=== PATIENT | male | born 1970 | race Caucasian/White ===

== ENCOUNTER 2020-03-24 12:24 | Inpatient (IN) | payer OTHER ==
[2020-03-24] VITALS (10 sets, daily range): BP systolic 110–135; BP diastolic 70–96
[~2020-03-24] VITALS: Ht 172 cm; Wt 92.6 kg
--- OUTSIDE RECORDS SUMMARY | 2020-03-24 12:29 | XMS REPORT | Continuity of Care Document ---
Demographics Preferred Language Unknown Marital Status Unknown Scientologist Affiliation Unknown Race Unknown Ethnic Group Unknown Author Organization Unknown Address Unknown Phone Unavailable Allergies There is no data. Medications There is no data. Problems There is no data. Procedures There is no data. Results Test Result Range CYTOCHECK COVID- - 03/02/20 13:10 [id number] NOT DETECTED Not Detecte d Encounters ACCT No. Visit Date/Time Discharge Status Pt. Type Provider Facility Loc./Unit Complaint [id number] 03/03/2020 07:09:45 Document Registration [id number] 03/02/2020 13:56:00 03/02/2020 23:59: 59 CLS Outpatient Yamileth Pederson
--- OUTSIDE RECORDS SUMMARY | 2020-03-24 12:29 | XMS REPORT ---
Demographics Preferred Language Uzbek Marital Status Never Jew Affiliation Unknown Race Other Race Ethnic Group Unknown Author Connor Coe [facility] Address [address] [place], [place] [id number] Care Team Providers Care Field Support Technician Name Role Phone Yamileth Pederson PCP Allergies and Adverse Reactions Not available. Plan of Treatment Not available. Medications Not available. Problem List Not available. Vital Signs Date Time BP-Sys(mm[Hg] BP-Deisi(mm[Hg]) HR(bpm) RR(rpm) Temp WT HT HC BMI BSA BMI Percentile O2 Sat(%) 03/02/2020 1:36:00 PM 83 {beats}/min 99.3 F 98 % Social History Not available. History of Procedures Not available. Results Summary Not available. History Of Immunizations Not available. History of Past Illness Name Date of Onset Comments Contact with or exposure to viral disease Mar 02 2020 10:02A M Payers Not available. History of Encounters Visit Date Visit Type Provider 03/02/2020 Office visit Yamileth ARORA RN
[2020-03-24 12:42] LABS: BASOPHILS % (AUTO) 0 % (0-10); EOSINOPHILS # (AUTO) 0.1 10^3/uL (0.0-0.3); EOSINOPHILS % (AUTO) 1 % (0-10); HEMATOCRIT 41 % (40-54); HEMOGLOBIN 13.8 G/DL (13.3-17.7); LYMPHOCYTES # (AUTO) 2.3 X 10^3 (1.0-4.0); LYMPHOCYTES % (AUTO) 25 % (12-44); MEAN CORPUSCULAR HEMOGLOBIN 29 PG (25-34); MEAN CORPUSCULAR HGB CONC 34 G/DL (32-36); MEAN CORPUSCULAR VOLUME 87 FL (80-99); MEAN PLATELET VOLUME 11.2 FL (7.4-10.4); MONOCYTES # (AUTO) 0.6 X 10^3 (0.0-1.0); MONOCYTES % (AUTO) 6 % (0-12); NEUTROPHILS # (AUTO) 6.4 X 10^3 (1.8-7.8); NEUTROPHILS % (AUTO) 69 % (42-75); PLATELET COUNT 418 10^3/uL (130-400); RED CELL DISTRIBUTION WIDTH 12.5 % (10.0-14.5); WHITE BLOOD COUNT 9.3 10^3/uL (4.3-11.0)
--- NOTE | 2020-03-24 12:46 | ED Neurological Problem ---
General Stated Complaint: STROKE Source: patient, EMS History of Present Illness Date Seen by Provider: Mar 24, 2020 Time Seen by Provider: 12:25 Initial Comments PT ARRIVES VIA EMS FROM HOME PT WITH STROKE SYMPTOMS WITH LEFT SIDED PARALYSIS AND NEGLECT--LAST KNOWN WELL TIME WAS 2100 LAST NIGHT, WHEN WENT TO BED. WOKE UP JUST PRIOR TO CALLING EMS, AND FOUND PT IN CURRENT CONDITION PT STATES HE TRIED TO GET UP AT 0100 TO GO TO THE BATHROOM AND "COULDN'T GET MY LEGS TO WORK" HAS NUMBNESS TO LEFT SIDE OF BODY PT DENIES PAIN ANYWHERE NO HEADACHE SLIGHT NAUSEA, NO VOMITING, PER PT; EMS REPORT THAT WHEN THEY WERE MOVING PT TO EMS CART, HE BECAME VERY NAUSEATED AND GAVE ZOFRAN 4 MG NO DIZZINESS GAZE FIXED TO RIGHT/LEFT SIDED NEGLECT VITALS FOR EMS: O2 SAT 93% ON ROOM AIR--UP TO UPPER 90'S ON 2L/NC; BP 123/74; HR IN 70'S; ACCUCHECK 122 EMS REPORT THAT THERE IS NO CENTRAL AIRCONDITIONING IN THE HOME--TEMP HAS BEEN IN 90'S AND VERY HIGH HUMIDITY ALL WEEK EMS REPORT THAT STATES THERE IS A WINDOW UNIT, BUT PT REFUSES TO TURN IT ON PT IS SWEATY ON ARRIVAL, BUT AND EMS STAFF ALSO SWEATY AT THE [employer]KS AT [employer] IN [place], AND EMPLOYEES HAVE BEEN ROUTINELY TESTED FOR COVID-19 TESTED POSITIVE 1 MONTH AGO, BUT WAS ASYMPTOMATIC. SHE HAS RETURNED TO WORK FOR THE LAST 2 WEEKS, AFTER QUARANTINE AND REPEAT COVID-19 TESTING WAS NEGATIVE. PT TESTED NEGATIVE FOR COVID-19 1 MONTH AGO, AND HAS NOT HAD ANY SYMPTOMS PT HAS HISTORY OF HTN, BUT REFUSES TO GO TO A DR. OR HOSPITAL, AND REFUSES TO TAKE ANY PRESCRIPTION MEDICATION AND INITIALLY REFUSED TO COME TO THE HOSPITAL DOES TAKE OTC GARLIC, TURMERIC, MILK THISTLE, AND CBD REPORTED TO EMS THAT HE IS "SLIGHTLY AUTISTIC" PCP: NONE Allergies and Home Medications Allergies Coded Allergies: No Known Drug Allergies (Unverified , 03/24/20) Home Medications Cranberry 400 Mg Capsule, 400 MG PO DAILY, (Reported) Dextromethorphn/Acetaminoph/Cp 354 Ml Liquid, 15-30 ML PO Q8H PRN for COUGH, (Reported) Garlic 500 Mg Capsule, 500 MG PO DAILY, (Reported) Milk Thistle Seed Extract 175 Mg Capsule, 175 MG PO DAILY, (Reported) Omeprazole 20 Mg Tablet.dr, 20 MG PO DAILY PRN for HEARTBURN, (Reported) Turmeric/Turmeric Root Extract 1 Each Capsule, 1 EACH PO DAILY, (Reported) [cbd] , 1 DROP SL DAILY, (Reported) Patient Home Medication List Home Medication List Reviewed: Yes Review of Systems Review of Systems Constitutional: no symptoms reported; No chills, No diaphoresis, No dizziness Eyes: See HPI Ears, Nose, Mouth, Throat: no symptoms reported Respiratory: no symptoms reported; No cough, No short of breath, No wheezing Cardiovascular: no symptoms reported; No chest pain, No edema, No palpitations, No syncope Gastrointestinal: see HPI; No abdominal pain; nausea; No vomiting Genitourinary: no symptoms reported Musculoskeletal: see HPI Skin: no symptoms reported Psychiatric/Neurological: See HPI; Denies Headache; Numbness, Unable to Move Lower Ext, Unable to Move Upper Ext, Weakness Endocrine: No Symptoms Reported Hematologic/Lymphatic: No Symptoms Reported Past Wxhflds-Lmknpu-Qytfbm Hx Past Med/Social Hx: Reviewed and Corrections made Patient Social History Alcohol Use: Denies Use Recreational Drug Use: No Smoking Status: Never a Smoker Past Medical History Surgeries: No Respiratory: No Cardiac: Yes Hypertension 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 oz. kg; BMI Method: General Appearance: WD/WN, no apparent distress, other (DIAPHORETIC ) HEENT: other (PUPILS EQUAL, GAZE FIXED TO RIGHT; POOR DENTITION; LEFT FACIAL DROOP, INCLUDING FOREHEAD,. UNABLE TO CLOSE LEFT EYELID. ABLE TO STICK TONGUE OUT, BUT NOT TO MIDLINE AND HAS SOME DIFFICULTY CONTROLLING TONGUE. SPEECH SLURRED) Neck: non-tender, full range of motion, supple, normal inspection; No carotid bruit Respiratory: normal breath sounds, no respiratory distress, no accessory muscle use Cardiovascular: normal peripheral pulses, regular rate, rhythm, no edema, no JVD, no murmur Peripheral Pulses: 2+ Dorsalis Pedis (R), 2+ Left Dors-Pedis (L), 2+ Radial Pulses (R), 2+ Radial Pulses (L) Gastrointestinal: normal bowel sounds, non tender, soft, no organomegaly, no pulsatile mass Back: no CVA tenderness Extremities: no pedal edema, normal capillary refill Neurologic/Psychiatric: alert, normal mood/affect, oriented x 3, EOM palsy, facial droop, motor weakness, sensory deficit, other (COMPLETELY FLACCID ON LEFT SIDE, WITH LEFT SIDED NEGLECT. NO SENSATION ON LEFT. LEFT FACIAL DROOP, INCLUDING FOREHEAD AND LEFT EYELID. GAZE DEVIATED TO RIGHT. ) Crainal Nerves: abnormal speech, facial droop, facial paresthesias, gaze palsy Motor/Sensory: weak motor strength LUE, weak motor strength LLE Skin: normal color, diaphoresis Stroke Onset of Symptoms Onset of Symptoms: No Symptoms onset unknown: Yes NIH Stroke Scale Assessment Select: Initial Level of Consciousness: 0=Alert (0), Level of Consciousness- Questions: 0=Answers both month/age (0), LOC Commands: 0=Performs both tasks (0), Gaze: Forced Deviation (2), Visual Mejia: 2=Complete hemianopia (2), Facial Movement (Facial Paresis): 3=Complete paralysis (3), Motor Function- Arms Right: 0=No drift (0), Motor Function-Arms Left: 4=No movement (4), Motor Function-Legs Right: 0=No drift (0), Motor Function-Legs Left: 4=No movement (4), Limb Ataxia: 2=Present in two limbs (2), Sensory: 2=Severe to total loss (2), Best Language: 1=Mild to moderat aphasia (1), Dysarthria: 1=Mild to moderate loss (1), Extinction & Inattention: 2=ProfoundH emiInattention (2), Total: 23 Stroke Thrombolytic Exclusion Age 18 or Over: Yes Acute intenal hemorrhage: No History of CVA: No Uncontrolled Coagulation Defec: No Intracranial Hemorrhage: No Severe Hypertension: No GI or Bleed: No Subarachnoid Hemorrhage: No Intracranial Neoplasm/Aneurysm: No Oral Anticoagulants: No Surgery or Trauma: No Puncture of Non-Compressible V: No Recent CPR: No Diabetic Hemorrhagic Retinopat: No Organ Biopsy: No Recent Obstetric Delivery: No Glucose: No Significant Hepatic Dysfunctio: No NIH Stoke Scale >22: Yes Bacterial Endocarditis: No Pericarditis: No Improving Symptoms: No Platelets: No IV - TPa Received IV - TPa Procedure Performed?: No (ONSET > 12 HOURS, WITH LKWT >15 HOURS) Progress/Results/Core Measures Results/Orders Lab Results Laboratory Tests Test 03/24/20 12:31 03/24/20 12:33 Range/Units White Blood Count 9.3 4.3-11.0 10^3/uL Red Blood Count 4.74 4.35-5.85 10^6/uL Hemoglobin 13.8 13.3-17.7 G/DL Hematocrit 41 40-54 % Mean Corpuscular Volume 87 80-99 FL Mean Corpuscular Hemoglobin 29 25-34 PG Mean Corpuscular Hemoglobin Concent 34 32-36 G/DL Red Cell Distribution Width 12.5 10.0-14.5 % Platelet Count 418 H 130-400 10^3/uL Mean Platelet Volume 11.2 H 7.4-10.4 FL Neutrophils (%) (Auto) 69 42-75 % Lymphocytes (%) (Auto) 25 12-44 % Monocytes (%) (Auto) 6 0-12 % Eosinophils (%) (Auto) 1 0-10 % Basophils (%) (Auto) 0 0-10 % Neutrophils # (Auto) 6.4 1.8-7.8 X 10^3 Lymphocytes # (Auto) 2.3 1.0-4.0 X 10^3 Monocytes # (Auto) 0.6 0.0-1.0 X 10^3 Eosinophils # (Auto) 0.1 0.0-0.3 10^3/uL Basophils # (Auto) 0.0 0.0-0.1 10^3/uL Prothrombin Time 14.0 12.2-14.7 SEC INR Comment 1.0 0.8-1.4 Activated Partial Thromboplast Time 29 24-35 SEC D-Dimer 2.69 H 0.00-0.49 UG/ML Sodium Level 143 135-145 MMOL/L Potassium Level 4.3 3.6-5.0 MMOL/L Chloride Level 109 H 98-107 MMOL/L Carbon Dioxide Level 18 L 21-32 MMOL/L Anion Gap 16 H 5-14 MMOL/L Blood Urea Nitrogen 23 H 7-18 MG/DL Creatinine 0.74 0.60-1.30 MG/DL Estimat Glomerular Filtration Rate > 60 BUN/Creatinine Ratio 31 Glucose Level 123 H 70-105 MG/DL Calcium Level 9.3 8.5-10.1 MG/DL Corrected Calcium 9.2 8.5-10.1 MG/DL Magnesium Level 2.4 1.6-2.4 MG/DL Total Bilirubin 0.3 0.1-1.0 MG/DL Aspartate Amino Transf (AST/SGOT) 27 5-34 U/L Alanine Aminotransferase (ALT/SGPT) 57 H 0-55 U/L Alkaline Phosphatase 53 40-136 U/L Total Creatine Kinase 120 30-200 U/L Creatine Kinase MB 1.7 <6.6 NG/ML Myoglobin 223.0 H 10.0-92.0 NG/ML Troponin I < 0.028 <0.028 NG/ML Total Protein 7.8 6.4-8.2 GM/DL Albumin 4.1 3.2-4.5 GM/DL Serum Alcohol < 10 <10 MG/DL Glucometer 140 H 70-110 MG/DL My Orders Orders - ИРИНА ELY DO Cbc With Automated Diff (03/24/20 12:) Protime With Inr (03/24/20 12:) Partial Thromboplastin Time (03/24/20 12:27) Comprehensive Metabolic Panel (03/24/20 12:) Fibrin Degradation Products (03/24/20 12:27) Troponin I (03/24/20 12:27) Ua Culture If Indicated (03/24/20 12:27) Chest 1 View, Ap/Pa Only (03/24/20 12:) Catheter(Urinary) Insert & Ass 03,15 (03/24/20 12:27) Ekg Tracing (03/24/20 12:27) Nothing By Mouth (03/24/20 Lunch) Accucheck Stat ONCE (03/24/20 12:) Ed Iv/Invasive Line Start (03/24/20 12:27) Ed Iv/Invasive Line Start (03/24/20 12:27) Vital Signs Stroke Patient Q15M (03/24/20 12:27) Ct Head Wo-R/O Stroke (03/24/20 12:) O2 (03/24/20 12:) Intake & Output 06,14,22 (03/24/20 12:) Monitor-Rhythm Ecg Trace Only (03/24/20 12:) Dysphagia Screening Tool (03/24/20 12:) Alcohol (03/24/20 12:) Creatine Kinase (03/24/20 12:) Creatine Kinase Mb (03/24/20 12:) Drug Screen Stat (Urine) (03/24/20 12:) Magnesium (03/24/20 12:) Myoglobin Serum (03/24/20:) Ondansetron Injection (Zofran Injectio (03/24/20 13:00) Scopolamine Patch (Transderm-Scop Patch) (03/24/20 13:00) Medications Given in ED Vital Signs/I&O 03/24/20 03/24/20 12:25 12:33 Temp 36.1 Pulse 89 Resp 18 B/P (MAP) 143/98 (113) Pulse Ox 98 97 O2 Delivery Nasal Cannula O2 Flow Rate 2.00 Progress Progress Note : Progress Note PT BECAME DIAPHORETIC AND NAUSEATED AND DIAPHORETIC ON MOVING PT ON AND OFF CT TABLE--ZOFRAN + SCOPOLAMINE PATCH ORDERED THOSE SYMPTOMS RESOLVED OTHERWISE UNEVENTFUL ER COURSE DISCUSSED TEST RESULTS AND EXPLAINED TO PT THE NEED FOR HOSPITALIZATION, MULTIPLE THERAPY SERVICES, ETC. AND HE UNDERSTANDS AND IS AGREEABLE TO THIS Initial ECG Impression Date: Mar 24, 2020 Initial ECG Impression Time: 12:31 Initial ECG Rate: 90 Initial ECG Rhythm: Normal Sinus Initial ECG Comparisson: No Previous ECG Available Diagnostic Imaging Comments CXR--Discussion: Single portable upright view of the chest was obtained. Low lung volumes. Normal heart size. No pleural fluid or pneumothorax. Questionable consolidation within the periphery of the left midlung, pneumonia versus atelectasis. Impression: 1. Patchy ill-defined opacity within the left midlung periphery, pneumonia not excluded. CT HEAD--MASSIVE ACUTE, RIGHT SIDED CVA IN DISTRIBUTION OF RIGHT MCA. NO HEMORRHAGE, NO EDEMA, NO MIDLINE SHIFT, NO HYDROCEPHALUS--PER RADIOLOGIST VIA PHONE AT 1300 IMPRESSION: 1. Suspect large right acute MCA territory infarct. No hemorrhage. Reviewed: Reviewed by Me, Discussed w/Radiologist Departure Communication (Admissions) Family Conversation 1325--SPOKE WITH PT'S , AND DISCUSSED TEST RESULTS AND EXPLAINED NEED FOR ADMIT AND INTENSIVE PHYSICAL THERAPY, OCCUPATIONAL THERAPY AND SPEECH THERAPY. SHE APPEARS TO UNDERSTAND. SHE REPORTS THAT BOTH THE PATIENT AND THEIR DAUGHTER BOTH TESTED NEGATIVE FOR COVID-19 4 WEEKS AGO 1305--SPOKE WITH DR. FRANCE, ACCEPTS PT FOR ADMIT. 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
[2020-03-24 12:52] LABS: ALBUMIN 4.1 GM/DL (3.2-4.5); CHLORIDE 109 MMOL/L (98-107); POTASSIUM 4.3 MMOL/L (3.6-5.0); SODIUM 143 MMOL/L (135-145)
[2020-03-24 12:54] LABS: CALCIUM 9.3 MG/DL (8.5-10.1); FIBRIN DEGRADATION PRODUCTS 2.69 UG/ML (0.00-0.49)
[2020-03-24 12:55] LABS: GLUCOSE 123 MG/DL (70-105); TOTAL PROTEIN 7.8 GM/DL (6.4-8.2)
[2020-03-24 12:56] LABS: CARBON DIOXIDE 18 MMOL/L (21-32)
[2020-03-24 12:57] LABS: BILIRUBIN,TOTAL 0.3 MG/DL (0.1-1.0)
[2020-03-24 12:58] LABS: ALKALINE PHOSPHATASE 53 U/L (40-136)
[2020-03-24 12:59] LABS: CREATININE SERUM 0.74 MG/DL (0.60-1.30); GFR ESTIMATED > 60
[2020-03-24 13:00] LABS: BUN/CREATININE RATIO 31
[2020-03-24] MEDS ORDERED: ONDANSETRON 4 MG/2 ML (SDV) Z0FRAN IVP ONE (13:00)
[2020-03-24] MEDS ORDERED: SCOPOLAMINE 1.5 MG (TRANSDERM-SCOP) PATCH TD ONE (13:00)
[2020-03-24 13:01] LABS: ALANINE AMINOTRANSFERASE 57 U/L (0-55); MAGNESIUM 2.4 MG/DL (1.6-2.4)
[2020-03-24 13:02] LABS: CREATINE KINASE 120 U/L (30-200)
[2020-03-24] MEDS ORDERED: GARL1TAB2 PO (13:05)
[2020-03-24 13:09] LABS: CREATINE KINASE MB 1.7 NG/ML (<6.6)
[2020-03-24] MEDS ORDERED: LACTATED RINGERS 1,000 ML IV ONE (13:34)
--- NOTE | 2020-03-24 13:34 | Diagnostic Imaging Report ---
PROCEDURE: CT head wo r/o stroke. TECHNIQUE: Multiple contiguous axial images were obtained through the brain without the use of intravenous contrast. Auto Exposure Controls were utilized during the CT exam to meet ALARA standards for radiation dose reduction. INDICATION: Altered mental status. COMPARISON: None. DISCUSSION: Large area of low attenuation within the posterior right frontal lobe and parietal lobe which is most suggestive of an acute infarct. There is loss of the lipscomb-white differentiation in this region. There is mild swelling with loss of the cortical sulci. No hemorrhage identified. No midline shift or hydrocephalus. This likely represents a right MCA distribution infarct. The orbits, sinuses, mastoid air cells, and calvarium are unremarkable. IMPRESSION: 1. Suspect large right acute MCA territory infarct. No hemorrhage. Critical findings were called to Dr. Mary Hare in the emergency department at time of exam by Dr. Jensen. Dictated by: Dictated on workstation # [id number]
--- NOTE | 2020-03-24 13:36 | Diagnostic Imaging Report ---
Indication: Altered mental status with left-sided paralysis. Comparison: None. Discussion: Single portable upright view of the chest was obtained. Low lung volumes. Normal heart size. No pleural fluid or pneumothorax. Questionable consolidation within the periphery of the left midlung, pneumonia versus atelectasis. Impression: 1. Patchy ill-defined opacity within the left midlung periphery, pneumonia not excluded. Dictated by: Dictated on workstation # [id number]
[2020-03-24 13:41] LABS: BILIRUBIN,URINE NEGATIVE (NEGATIVE); CLARITY,URINE CLEAR; COLOR,URINE YELLOW; GLUCOSE, URINE (UA) NEGATIVE (NEGATIVE); KETONES,URINE NEGATIVE (NEGATIVE); LEUKOCYTE ESTERASE ,URINE NEGATIVE (NEGATIVE); NITRITE,URINE NEGATIVE (NEGATIVE); PROTEIN,URINE NEGATIVE (NEGATIVE)
[2020-03-24 13:56] LABS: AMPHETAMINE SCREEN, URINE NEGATIVE (NEGATIVE); BARBITURATE SCREEN URINE NEGATIVE (NEGATIVE); BENZODIAZEPINES SCREEN URINE NEGATIVE (NEGATIVE); CANNABINOID SCREEN, URINE NEGATIVE (NEGATIVE); COCAINE SCREEN URINE NEGATIVE (NEGATIVE); METHADONE STAT NEGATIVE (NEGATIVE); METHAMPHETAMINE SCREEN URINE S NEGATIVE (NEGATIVE); OPIATE SCREEN URINE NEGATIVE (NEGATIVE); OXYCODONE STAT NEGATIVE (NEGATIVE); PROPOXYPHENE STAT NEGATIVE (NEGATIVE); TRICYCLIC ANTIDEPRESSANTS SCRE NEGATIVE (NEGATIVE)
[2020-03-24 14:05] LABS: BACTERIA,URINE MODERATE /HPF; WBC,URINE RARE /HPF
--- OUTSIDE RECORDS SUMMARY | 2020-03-24 14:40 | XMS REPORT | Continuity of Care Document ---
Demographics Preferred Language Unknown Marital Status Unknown Adventist Affiliation Unknown Race Unknown Ethnic Group Unknown Author Organization Unknown Address Unknown Phone Unavailable Allergies There is no data. Medications There is no data. Problems There is no data. Procedures There is no data. Results Test Result Range CYTOCHECK COVID-19 - 03/02/20 13:10 [id number] NOT DETECTED Not Detecte d Complete blood count (CBC) with automate d white blood cell (WBC) differential - 03/24/20 12:31 Blood leukocytes automated count (number/volume) 9.3 10*3/uL 4.3-11.0 Blood erythrocytes automated count (number/volume) 4.74 10*6/uL 4.35-5.85 Venous blood hemoglobin measurement (mass/volume) 13.8 g/dL 13.3-17.7 Blood hematocrit (volume fraction) 41 % 40-54 Automated erythrocyte mean corpuscular volume 87 [ foz_us] 80-99 Automated erythrocyte mean corpuscular h emoglobin (mass per erythrocyte) 29 pg 25-34 Automated erythrocyte mean corpuscular h emoglobin concentration measurement (mass/volume) 34 g/dL 32-36 Automated erythrocyte distribution width ratio 12. 5 % 10.0- 14.5 Automated blood platelet count (count/volume) 418 10*3/uL 130-400 Automated blood platelet mean volume measurement 11.2 [foz_us] 7.4-10.4 Automated blood neutrophils/100 leukocytes 69 % 42-75 Automated blood lymphocytes/100 leukocytes 25 % 12-44 Blood monocytes/100 leukocytes 6 % 0-12 Automated blood eosinophils/100 leukocytes 1 % 0-10 Automated blood basophils/100 leukocytes 0 % 0-10 Blood neutrophils automated count (number/volume) 6.4 10*3 1.8-7.8 Blood lymphocytes automated count (number/volume) 2.3 10*3 1.0-4.0 Blood monocytes automated count (number/volume) 0. 6 10*3 0.0-1.0 Automated eosinophil count 0.1 10*3/uL 0 .0-0.3 Automated blood basophil count (count/volume) 0.0 10*3/uL 0.0-0.1 Comprehensive metabolic panel - 03/24/20 12:31 Serum or plasma sodium measurement (moles/volume) 143 mmol/L 135-145 Serum or plasma potassium measurement (moles/volume) 4.3 mmol/L 3.6-5.0 Serum or plasma chloride measurement (moles/volume) 109 mmol/L 98-107 Carbon dioxide 18 mmol/L 21-32 Serum or plasma anion gap determination (moles/volume) 16 mmol/L 5-14 Serum or plasma urea nitrogen measurement (mass/volume ) 23 mg/dL 7-18 Serum or plasma creatinine measurement (mass/volume) 0.74 mg/dL 0.60-1.30 Serum or plasma urea nitrogen/creatinine mass ratio 31 NRG Serum or plasma creatinine measurement w ith calculation of estimated glomerular filtration rate > NRG Serum or plasma glucose measurement (mass/volume) 123 mg/dL 70-105 Serum or plasma calcium measurement (mass/volume) 9.3 mg/dL 8.5-10.1 Serum or plasma total bilirubin measurement (mass/volu me) 0.3 mg/dL 0.1-1.0 Serum or plasma alkaline phosphatase vivian surement (enzymatic activity/volume) 53 U/L 40-136 Serum or plasma aspartate aminotransfera se measurement (enzymatic activity/volume) 27 U/L 5-34 Serum or plasma alanine aminotransferase measurement (enzymatic activity/volume) 57 U/L 0-55 Serum or plasma protein measurement (mass/volume) 7.8 g/dL 6.4-8.2 Serum or plasma albumin measurement (mass/volume) 4.1 g/dL 3.2-4.5 CALCIUM CORRECTED 9.2 mg/dL 8.5-10.1 PT panel in platelet poor plasma by coag ulation assay - 03/24/20 12:31 Prothrombin time (PT) in platelet poor plasma by coagu lation assay 14.0 s 12.2-14.7 INR in platelet poor plasma or blood by coagulation as say 1.0 0.8-1.4 Activated partial thromboplastin time (a PTT) in platelet poor plasma bycoagulation assay - 03/24/20 12:31 Activated partial thromboplastin time (a PTT) in platelet poor plasma bycoagulation assay 29 s 24-35 Fibrin D-dimer FEU measurement in platel et poor plasma (mass/volume) - 03/24/20 12:31 Fibrin D-dimer FEU measurement in platelet poor plasma (mass/volume) 2.69 ug/mL 0.00-0.49 Magnesium - 03/24/20 12:31 Magnesium 2.4 mg/dL 1.6-2.4 Serum or plasma creatine kinase measurem ent (enzymatic activity/volume) - 03/24/20 12:31 Serum or plasma creatine kinase measurem ent (enzymatic activity/volume) 120 U/L 30-200 Serum or plasma creatine kinase MB measu rement (enzymatic activity/volume) - 03/24/20 12:31 Serum or plasma creatine kinase MB measu rement (enzymatic activity/volume) 1.7 ng/mL <6.6 Serum or plasma troponin i.cardiac measu rement (mass/volume) - 03/24/20 12:31 Serum or plasma troponin i.cardiac measurement (mass/v olume) < ng/mL <0.028 Myoglobin, serum - 03/24/20 12:31 Myoglobin, serum 223.0 ng/mL 10.0-92.0 Serum or plasma ethanol measurement (mas s/volume) - 03/24/20 12:31 Serum or plasma ethanol measurement (mass/volume) < mg/dL <10 Capillary blood glucose measurement by g lucometer (mass/volume) - 03/24/20 12:33 Capillary blood glucose measurement by glucometer (mas s/volume) 140 mg/dL 70-110 Urine drug screening test - 03/24/20 13: 24 Urine phencyclidine detection by screening method NEGATIVE NEGATIVE Urine benzodiazepines detection by screening method NEGATIVE NEGATIVE Urine cocaine detection NEGATIVE NEGATI VE Urine amphetamines detection by screening method N EGATIVE NEGATIVE Urine methamphetamine detection by screening method NEGATIVE NEGATIVE Urine cannabinoids detection by screening method N EGATIVE NEGATIVE Urine opiates detection by screening method NEGATI VE NEGATIVE Urine barbiturates detection NEGATIVE N EGATIVE Screening urine tricyclic antidepressants detection NEGATIVE NEGATIVE Urine methadone detection by screening method NEGA TIVE NEGATIVE Urine oxycodone detection NEGATIVE NEGA TIVE Urine propoxyphene detection NEGATIVE N EGATIVE Complete urinalysis with reflex to cultu re - 03/24/20 13:24 Urine color determination YELLOW NRG Urine clarity determination CLEAR NR G Urine pH measurement by test strip 6.0 5-9 Specific gravity of urine by test strip >= 1.016-1.022 Urine protein assay by test strip, semi-quantitative NEGATIVE NEGATIVE Urine glucose detection by automated test strip NE GATIVE NEGATIVE Erythrocytes detection in urine sediment by light micr oscopy 1+ NEGATIVE Urine ketones detection by automated test strip NE GATIVE NEGATIVE Urine nitrite detection by test strip NEGATIVE NEGATIVE Urine total bilirubin detection by test strip NEGA TIVE NEGATIVE Urine urobilinogen measurement by automated test strip (mass/volume) 0.2 mg/dL < = 1.0 Urine leukocyte esterase detection by dipstick NEG ATIVE NEGATIVE Automated urine sediment erythrocyte cou nt by microscopy (number/high power field) NONE NRG Automated urine sediment leukocyte count by microscopy (number/high power field) RARE NRG Bacteria detection in urine sediment by light microsco py MODERATE NRG Squamous epithelial cells detection in u rine sediment by light microscopy NONE NRG Crystals detection in urine sediment by light microsco py NONE NRG Casts detection in urine sediment by light microscopy NONE NRG Mucus detection in urine sediment by light microscopy NEGATIVE NRG Complete urinalysis with reflex to culture YES NRG Encounters ACCT No. Visit Date/Time Discharge Status Pt. Type Provider Facility Loc./Unit Complaint [id number] 03/03/2020 07:09:45 Document Registration [id number] 03/02/2020 13:56:00 03/02/2020 23:59: 59 CLS Outpatient Yamileth Pederson [id number] 03/24/2020 12:41:00 Document Registration
[2020-03-24] MEDS ORDERED: D5 1/2 NS W/KCL 20 MEQ/L 1,000 ML IV ONE (15:01)
[2020-03-24] MEDS ORDERED: ONDANSETRON 4 MG/2 ML (SDV) Z0FRAN IV PRN (15:15)
[2020-03-24] MEDS: D5 1/2 NS W/KCL 20 MEQ/L 1,000 ML IV SCH ×2 (15:20→23:12)
[2020-03-24] MEDS ORDERED: hydrALAZINE (APESOLINE) 20 MG/ML VIAL IV PRN (17:30)
[2020-03-24] MEDS: ENOXAPARIN 40 MG/0.4 ML (LOVENOX) SYR SC SCH (18:18)
--- NOTE | 2020-03-24 18:24 | NUR ---
LATE ENTRY: 1744 NGT PLACED INTO RIGHT NARE X 1 ATTEMPT BY THIS RN, PLACEMENT VERIFIED BY AUSCULTATION. PT TOLERATED WELL, NGT TO LIWS. 1809 DR FRANCE NOTIFIED OF PT'S EMESIS ORDERS RECEIVED TO HOLD TUBE FEEDINGS AT THIS TIME. ZOFRAN GIVEN FOR NAUSEA, AT BEDSIDE. WILL CONTINUE TO MONITOR.
[2020-03-25] VITALS (15 sets, daily range): BP systolic 110–153; BP diastolic 57–89
[2020-03-25 03:49] LABS: BASOPHILS % (AUTO) 0 % (0-10); EOSINOPHILS % (AUTO) 0 % (0-10); HEMATOCRIT 39 % (40-54); HEMOGLOBIN 12.9 G/DL (13.3-17.7); LYMPHOCYTES # (AUTO) 1.3 X 10^3 (1.0-4.0); LYMPHOCYTES % (AUTO) 13 % (12-44); MEAN CORPUSCULAR HEMOGLOBIN 29 PG (25-34); MEAN CORPUSCULAR HGB CONC 33 G/DL (32-36); MEAN CORPUSCULAR VOLUME 88 FL (80-99); MEAN PLATELET VOLUME 10.4 FL (7.4-10.4); MONOCYTES # (AUTO) 0.5 X 10^3 (0.0-1.0); MONOCYTES % (AUTO) 5 % (0-12); NEUTROPHILS # (AUTO) 8.3 X 10^3 (1.8-7.8); NEUTROPHILS % (AUTO) 82 % (42-75); PLATELET COUNT 396 10^3/uL (130-400); WHITE BLOOD COUNT 10.1 10^3/uL (4.3-11.0)
[2020-03-25 04:03] LABS: CHLORIDE 107 MMOL/L (98-107); POTASSIUM 3.9 MMOL/L (3.6-5.0); SODIUM 141 MMOL/L (135-145)
[2020-03-25 04:04] LABS: CALCIUM 8.8 MG/DL (8.5-10.1)
[2020-03-25 04:05] LABS: GLUCOSE 133 MG/DL (70-105); TRIGLYCERIDES 134 MG/DL (<150); VLDL CHOLESTEROL 27 MG/DL (5-40)
[2020-03-25 04:06] LABS: CARBON DIOXIDE 20 MMOL/L (21-32)
[2020-03-25 04:08] LABS: PHOSPHORUS 2.6 MG/DL (2.3-4.7)
[2020-03-25 04:09] LABS: CREATININE SERUM 0.79 MG/DL (0.60-1.30); GFR ESTIMATED > 60
[2020-03-25 04:10] LABS: BUN/CREATININE RATIO 24; CHOLESTEROL 160 MG/DL (< 200)
[2020-03-25 04:11] LABS: HDL CHOLESTEROL 24 MG/DL (40-60); MAGNESIUM 2.2 MG/DL (1.6-2.4)
--- NOTE | 2020-03-25 05:57 | Pulmonary Consultation ---
History of Present Illness History of Present Illness Date Seen by Provider: Mar 25, 2020 Time Seen by Provider: 05:50 Date of Admission History of Present Illness 50yo with hx of HTN presented to ED secondary to waking up noting left sided paralysis and neglect. Last known well time was at 2100 prior to going to bed. He tried to get up at 0100 and could not get up. Pt's had negative COVID testing 1 month ago. PT does not see a doctor regularly. Allergies and Home Medications Allergies Coded Allergies: No Known Drug Allergies (Unverified , 03/24/20) Past Zppysgi-Vqnxxb-Xgvwng Hx Past Med/Social Hx: Reviewed and Corrections made Patient Social History Alcohol Use: Denies Use Recreational Drug Use: No Smoking Status: Never a Smoker Recent Foreign Travel: No Contact w/Someone Who Travel: No Recent Infectious Disease Expo: No Physical Abuse: No Sexual Abuse: No Mistreated: No Fear: No Past Medical History Surgeries: Yes (DENTAL) Respiratory: No Cardiac: Yes Hypertension Neurological: Yes ("SLIGHTLY AUTISTIC" ) Developmental Disorder Genitourinary: No Gastrointestinal: No Musculoskeletal: No Endocrine: No HEENT: No Cancer: No Psychosocial: No Bipolar Integumentary: No Blood Disorders: No Adverse Reaction/Blood Tranf: No Review of Systems Time Seen by Provider: 05:57 Sepsis Event Evaluation Height, Weight, BMI Height: '" Weight: lbs. oz. kg; 33.70 BMI Method: Exam Exam Vital Signs Date Time Temp Pulse Resp B/P (MAP) Pulse Ox O2 Delivery O2 Flow Rate FiO2 03/25/20 05:00 80 26 143/77 (99) 96 Room Air 03/25/20 04:00 86 24 141/73 (95) 94 Room Air 03/25/20 04:00 95 Room Air 03/25/20 04:00 37.3 03/25/20 03:00 92 26 144/82 (102) 95 Room Air 03/25/20 02:00 96 21 126/57 (80) 95 Room Air 03/25/20 01:40 Room Air 03/25/20 01:00 95 21 127/65 (85) 95 Nasal Cannula 2.00 03/25/20 01:00 100 03/25/20 00:00 96 Room Air 03/25/20 00:00 37.4 03/25/20 00:00 98 22 95 Nasal Cannula 2.00 03/24/20 23:00 99 24 127/96 (106) 96 Nasal Cannula 2.00 03/24/20 22:00 93 23 135/77 (96) 96 Nasal Cannula 2.00 03/24/20 21:00 95 23 120/86 (97) 96 Nasal Cannula 2.00 03/24/20 20:00 96 Nasal Cannula 2.00 03/24/20 20:00 92 20 129/77 (94) 97 Nasal Cannula 2.00 03/24/20 19:29 37.5 03/24/20 19:00 90 03/24/20 19:00 90 23 110/82 (91) 97 Nasal Cannula 2.00 03/24/20 18:00 90 21 128/80 (96) 96 Nasal Cannula 2.00 03/24/20 17:00 84 12 125/70 (88) 98 Nasal Cannula 2.00 03/24/20 16:00 98 Nasal Cannula 2.00 03/24/20 16:00 36.8 03/24/20 16:00 89 22 120/80 (93) 97 Nasal Cannula 2.00 03/24/20 15:15 93 21 123/73 (90) 97 Nasal Cannula 2.00 03/24/20 15:00 95 129/76 (93) Nasal Cannula 2.00 03/24/20 14:51 98 16 136/89 96 03/24/20 14:00 89 03/24/20 12:33 36.1 89 18 143/98 (113) 97 03/24/20 12:25 98 Nasal Cannula 2.00 I & O 03/25/20 07:00 Intake Total 1000 ml Output Total 1000 ml Balance 0 ml Height & Weight Height: '" Weight: lbs. oz. kg; 33.70 BMI Method: Capillary Refill: Less Than 3 Seconds Results Lab Laboratory Tests 03/24/20 12:31 03/25/20 03:00 Assessment/Plan Assessment/Plan Large right acute MCA infarct with left sided paralysis -ASA -Swallow study -Currently NPO -Pt has an OG tube currently -Speech therapy is consulted -Pt may need PEG tube -Echo pending -PT/OT -NIH on admission was 24 and now 19. -Called [facility] stroke line at [phone] and they agree treatment will just be supportive care. They do recommend repeat CT of head to make sure there is not increased edema. Dysphasia JEAN WILSON DO Mar 25, 2020 05:57
[2020-03-25] MEDS ORDERED: MAGNESIUM 1 GM/100 ML IVPB 100 ML IV SCH (06:00)
[2020-03-25] MEDS ORDERED: POTASSIUM CL 10MEQ/50ML IVPB 50 ML IV SCH (06:00)
[2020-03-25] MEDS ORDERED: KCL 20 MEQ TAB (K-DUR) PO SCH (06:00)
[2020-03-25] MEDS ORDERED: ONDANSETRON 4 MG/2 ML (SDV) Z0FRAN IVP PRN (06:15)
--- NOTE | 2020-03-25 07:00 | NUR ---
CALLED CT AND INFORMED THEM THAT DR. WILSON REQUESTED IMAGES TO BE CLOUDED OVER TO STROKE CENTER.
[2020-03-25] MEDS: D5 1/2 NS W/KCL 20 MEQ/L 1,000 ML IV SCH ×3 (07:29→20:58)
--- NOTE | 2020-03-25 08:03 | Diagnostic Imaging Report ---
HISTORY: Dyspnea COMPARISON: 03/24/2020 TECHNIQUE: Frontal view of the chest. FINDINGS: There are increasing airspace opacities in the left lung. There is no pleural effusion or pneumothorax. The cardiac silhouette is normal in size. The tip of the enteric tube projects over the distal stomach/1st portion of the duodenum. IMPRESSION: 1. There are increasing airspace opacities in the left lung, may represent developing infiltrate. Dictated by: Dictated on workstation # [id number]
--- NOTE | 2020-03-25 08:37 | ST Dysphagia Evaluation ---
Speech Evaluation-General Medical Diagnosis CVA Onset Date: Mar 24, 2020 Therapy Diagnosis Therapy Diagnosis: Oropharyngeal Dysphagia Precautions Precautions: Aspiration Referral Referring Physician: Dr. Flannery Reason for Referral: Evaluation/Treatment Medical History Pertinent Medical History: HTN Reviewed History: Yes Social History Current Living Status: Spouse Speech PLF/Current-Dysphagia Prior Level of Function Patient lived at home with his . He has a medical history of HTN without medical care. Patient was independent with his daily needs. Cognitive Status Patient Orientation: Person, Place, Eyes Open, Situation Oral Motor Skills Dentition: Natural Ability to Follow Directions: Good Patient was NPO pending BDE Oral Expression Ability: Moderate Impairment Due to left sided weakness and decreased oral motor control. Voice Voice Phonatory-Based Quality: Weak Voice Pitch: Normal Voice Loudness: Mildly Soft/Quiet Face Facial Symmetry: Asymmetrical Oral-Facial Assessment Oral-Facial Dentition: Normal Labial Seal Description: Droops Left, Weak, Poor Coordination Smile: Reduced ROM, Droops Left Lingual Protrusion: Abnormal Lingual ROM: Abnormal Lingual Strength: Abnormal Pharynx Velopharyngeal Move.: Weak on Left Volitional Dry Swallow: Yes Voluntary Cough: Yes Productive Cough: No Productive Throat Clear: No Dysphagia Evaluation Consistencies Presented: Thin Liquid, Mechanical Soft, Stickney Thick Liquid, Pureed Oral Phase: Anterior Spillage, Unable to Form Bolus, Unable to Suck Straw, Reduced Oral Transit Unable to form bolus and A to P transfer for mechanical soft. Pharyngeal Phase: Decreased A/P Bolus Transit, Delayed Swallow with mechanical soft Funct. Velo/Pharyngeal Symptom: Cough After Swallow with thin liquids Dietary Recommendations: Pureed Liquid Recommendations: Stickney Consistancy Swallowing Precautions: Alternate Liquids/Solids, Decreased Bolus 1/2 Tsp, Liquids from Spoon, No Straw, Small Bites and Sips, Sitting Upright 90 Degrees, Sitting 90 Degrees 30 Post Intake, Left Tongue Sweep Dysphagia Evaluation Summary Patient was sitting up in his bed when I entered his room. He was sucking on the toothette and stated his mouth was so dry. Patient has significant left side droop. Right sided neglect is significant. Patient was given 1/2 tsp of thin with delayed cough noted. He was able to clear. Patient was given nectar consistency liquids at 1/2 tsp without difficulty. Patient is unable to suck on a straw at this time. Patient was given puree at 1/2 tsp with adequate A to P transfer and no pocketing. The patient was also given 1/2 tsp of mechanical soft without the ability to manage bolus. Patient also exhibited pocketing in the left buccal area with mechanical soft. Patient is recommended for Dysphagia I diet level with nectar consistency liquids. No straws to be used at this time. This information was provided to his nurse and written on the white board in patient's room. Barriers to Learning Patient's recent CVA Speech Short Term Goals Short Term Goals Short Term Goals 1) Patient will tolerate least restrictive diet without s/s of aspiration at 90% or greater. 2) Patient/caregiver will utilize compensatory strategies as trained for safe oral intake at 90% or greater with minimal cuing. Speech Detention Goals Audiovisual Librarian Goals Patient will maintain adequate nutrition/hydration via safe effective swallow. Speech-Plan Patient/Family Goals Patient/Family Goals: Patient plans on returning to his home upon hospital discharge. Treatment Plan Speech Therapy Treatment Plan: Continue Plan of Care Treatment Duration: Apr 03, 2020 Frequency: 5 times per week Estimated Hrs Per Day: .25 hour per day Rehab Potential: Good Barriers to Learning: Patient's new onset CVA Pt/Family Agrees to Plan: Yes Safety Risks/Education Teaching Recipient: Patient Teaching Methods: Demonstration, Discussion Response to Teaching: Verbalize Understanding, Return Demonstration, Reinforcement Needed Education Topics Provided: Safety of oral intake and diet level Time Speech Therapy Time In: 08:15 Speech Therapy Time Out: 08:27 Total Billed Time: 12 Billed Treatment Time 1, YUNDBRIAN Jamison Mar 25, 2020 08:37
--- NOTE | 2020-03-25 08:46 | History & Physical-Hospitalist ---
History of Present Illness HPI/Chief Complaint Pt is a 50yoCM who presented to the ER due to left sided weakness. He states he got up to go to the bathroom at 0100 yesterday morning and his left leg wouldn't work. Later his found him with this deficit and called EMS. On arrival he had a NIH of 24. He had left sided paralysis and with neglect and fixed gaze. Ap parently his works at [employer] and was positive for COVID19 1 month ago. Patient tested negative at that time via PCR. He has had no COVID symptoms and his remained asymptomatic the whole time and has been off quarantine for 2 weeks. Pt denies any past medical history but states he has not been to the doctor in over 20 years. He has no other complaints and states he is "kind of scared" with everything going on. Source: patient Date Seen 03/25/20 Time Seen by a Provider: 08:25 Attending Physician May Flannery MD PCP Referring Physician Date of Admission Mar 24, 2020 at 13:05 Home Medications & Allergies Home Medications Reviewed patient Home Medication Reconciliation performed by pharmacy medication reconciliations domestic technician and/or nursing. Patients Allergies have been reviewed. Allergies Allergies Coded Allergies No Known Drug Allergies (Unverified03/24/20) Past Gyqqpfe-Igksdf-Vectcv Hx Past Med/Social Hx: Reviewed Nursing Past Med/Soc Hx Patient Social History Marrital Status: Alcohol Use: Denies Use Recreational Drug Use: No Smoking Status: Never a Smoker Recent Foreign Travel: No Contact w/other who traveled: No Recent Infectious Disease Expo: No Past Medical History Cardiac: Hypertension Neurological: Developmental Disorder Psychosocial: Bipolar History of Blood Disorders: No Adverse Reaction to Blood Gayle: No Family History Reviewed Nursing Family Hx No Pertinent Family Hx Review of Systems Constitutional: No chills, No fever EENTM: no symptoms reported Respiratory: No cough, No short of breath Cardiovascular: No chest pain, No palpitations Gastrointestinal: no symptoms reported Genitourinary: no symptoms reported Musculoskeletal: see HPI Skin: no symptoms reported Psychiatric/Neurological: See HPI Physical Exam Physical Exam Vital Signs Vital Signs - First Documented 03/24/20 03/24/20 12:25 12:33 Temp 36.1 Pulse 89 Resp 18 B/P (MAP) 143/98 (113) Pulse Ox 98 O2 Delivery Nasal Cannula O2 Flow Rate 2.00 Capillary Refill : Less Than 3 Seconds Height, Weight, BMI Height: '" Weight: lbs. oz. kg; 33.70 BMI Method: General Appearance: No Apparent Distress, WD/WN Eyes: Bilateral Eye PERRL HEENT: Moist Mucous Membranes, Other (right sided gaze deficit) Neck: Normal Inspection, Supple; No Thyromegaly Respiratory: Lungs Clear, No Respiratory Distress Cardiovascular: Regular Rate, Rhythm, No Murmur Gastrointestinal: Normal Bowel Sounds, Non Tender, Soft Extremity: No Calf Tenderness, No Pedal Edema Neurologic/Psychiatric: Alert, Oriented x3, Motor Weakness (left sided paralysis upper and lower extremity); No Sensory Deficit Results Results/Procedures Labs Laboratory Tests 03/24/20 12:31 03/25/20 03:00 Patient resulted labs reviewed. Imaging: Reviewed Imaging Report Imaging [facility], [place] NAME: ROBERTO CHANDLER JR [facility] REC#: [id number] PT STATUS: ADM IN : 1970 PHYSICIAN: MARY HARE DO ADMIT DATE: 03/24/20/ICU Signed Date of Exam:03/24/20 CT HEAD WO-R/O STROKE PROCEDURE: CT head wo r/o stroke. TECHNIQUE: Multiple contiguous axial images were obtained through the brain without the use of intravenous contrast. Auto Exposure Controls were utilized during the CT exam to meet ALARA standards for radiation dose reduction. INDICATION: Altered mental status. COMPARISON: None. DISCUSSION: Large area of low attenuation within the posterior right frontal lobe and parietal lobe which is most suggestive of an acute infarct. There is loss of the lipscomb-white differentiation in this region. There is mild swelling with loss of the cortical sulci. No hemorrhage identified. No midline shift or hydrocephalus. This likely represents a right MCA distribution infarct. The orbits, sinuses, mastoid air cells, and calvarium are unremarkable. IMPRESSION: 1. Suspect large right acute MCA territory infarct. No hemorrhage. Critical findings were called to Dr. Mary Hare in the emergency department at time of exam by Dr. Claudio. Dictated by: Dictated on workstation # [id number] Dict: 03/24/20 1258 Trans: 03/24/20 1628 [id number] Interpreted by: SANTA CLAUDIO MD Electronically signed by: SANTA CLAUDIO MD 03/24/20 4031 Assessment/Plan Admission Diagnosis Acute MCA Stroke Admission Status: Inpatient Order (span 2 midnights) Reason for Inpatient Admission: see below Assessment and Plan Acute Right MCA Stroke Monitor in ICU CTA ordered this AM Unfortunately presented outside the window for TPA Dr Gibson discussed with [facility] Neurology and no indication for intervention, recommend supportive care Will check COVID antibodies given exposure and large stroke PT/OT Speech consult, NGT in place currently May need PEG Continue Lipitor HTN BP within goal trend DVT ppx: Lovenox following CT Clinical Quality Measures DVT/VTE Risk/Contraindication: Risk Factor Score Per Nursin RFS Level Per Nursing on Admit: 4+=Very High Stroke: Symptoms onset unknown: Yes MEREDITH WILKERSON MD Mar 25, 2020 08:46
--- NOTE | 2020-03-25 08:47 | Diagnostic Imaging Report ---
PROCEDURE: US carotid duplex, bilateral. TECHNIQUE: Multiple real-time grayscale images were obtained over the carotid arteries in various projections, bilaterally. Additional spectral analysis and color Doppler duplex images were also obtained. INDICATION: Stroke, altered mental status. CORRELATION STUDY: None FINDINGS: There was reported limitations and difficulty in positioning the patient for the examination. Large portion of the mid and distal aspect of the internal carotid arteries on the left aspect were unable to be visualized. Color images do demonstrate a mild scattered plaque-like formation be present throughout the common carotid arteries, carotid bulbs as well as internal and external carotid arteries. On the right, there is no significantly elevated velocities to suggest a focal area of stenosis. Peak systolic ICA/CCA ratio measured less than 1. On the left, proximal aspect of the internal carotid artery is patent. This does not demonstrate significantly elevated velocity. External carotid arteries are patent with mildly increased velocity. Vertebral arteries antegrade directional flow. IMPRESSION: 1. Incomplete assessment of the carotid arteries. The mid and distal aspect of the left internal carotid artery cannot be visualized given head positioning. The visualized segments of the internal carotid arteries demonstrate no findings to suggest significant stenosis. There is scattered mild plaque-like formation in the visualized segments. Parameters based on the consensus panel Jimenez-Scale and Doppler ultrasound criteria published July 2003, Radiology, Volume 229. DOPPLER (peak systolic velocity M/S Right Left CCA 1.07 1.14 ICA Proximal 0.57 0.91 ICA Mid 0.85 NOT SEEN ICA Distal 0.58 NOT SEEN RATIO 0.79 0.80 ECA 1.51 1.44 VERT 0.48 0.70 Dictated by: Dictated on workstation # [id number]
[2020-03-25] MEDS ORDERED: ASPIRIN 325 MG (5 GR) TABLET NG SCH (09:00)
[2020-03-25] MEDS ORDERED: CATHETER FLUSH 10 ML SYR IV PRN (09:15)
[2020-03-25] MEDS ORDERED: HOLD METFORMIN - RECEIVED CONTRAST 20 ML VIAL IV SCH (09:15)
[2020-03-25] MEDS ORDERED: NS 100 ML (IVPB) BAG IV ONE (09:15)
[2020-03-25] MEDS ORDERED: IOHEXOL 350 MG/ML 100 ML (OMNIPAQUE 350) VIAL IV ONE (09:15)
--- NOTE | 2020-03-25 10:28 | Diagnostic Imaging Report ---
PROCEDURE: CT head with and without contrast. TECHNIQUE: Multiple contiguous axial images were obtained through the brain before and after the administration of intravenous contrast. Auto Exposure Controls were utilized during the CT exam to meet ALARA standards for radiation dose reduction. INDICATION: Cerebral infarct. Correlation is made with head CT performed one day earlier. A large area of low density right middle cerebral artery territory is again noted consistent with right MCA territory infarct. The infarct margins are better defined on today's study consistent with the evolution of infarct. There is also low density identified in the right caudate head consistent with right caudate infarct. There is mass effect on the adjacent right lateral ventricular frontal horn. No definite midline shift is identified. No acute intra-axial or extra-axial hemorrhage is detected. Cisterns are patent. Visualized paranasal sinuses are clear. No definite abnormal enhancement following contrast administration is identified. IMPRESSION: Evolution of right MCA territory infarct when compared with the examination one day earlier. There is no midline shift or acute hemorrhage. There is continued sulcal effacement of the right cerebral hemisphere with some mass effect on the right lateral ventricle. Dictated by: Dictated on workstation # [id number]
[2020-03-25] MEDS ORDERED: GARL500C2 PO (11:07)
[2020-03-25] MEDS ORDERED: CRAN400C PO (11:08)
[2020-03-25] MEDS ORDERED: DEXT354L PO (11:08)
[2020-03-25] MEDS: ASPIRIN 81 MG CHEW (CHILDREN'S ASA) PO SCH (11:08)
[2020-03-25] MEDS ORDERED: cbd SL (11:08)
[2020-03-25] MEDS ORDERED: OMEP20TA7 PO (11:08)
[2020-03-25] MEDS ORDERED: TURM500C4 PO (11:08)
[2020-03-25] MEDS ORDERED: MILK175C5 PO (11:08)
--- NOTE | 2020-03-25 11:10 | NUR ---
SPOKE WITH PT AND HIS TO COMPLETE THE MED REC THE PATIENTS SAYS PT DOESNT TAKE ANY PRESCRIPTION MEDICATIONS. OTC MEDS: CBD OIL TURMERIC MILK THISTLE GARLIC CRANBERRY OMEPRAZOLE NYQUIL
--- NOTE | 2020-03-25 11:36 | Physical Therapy Evaluation ---
PT Evaluation-General Medical Diagnosis Admission Date Mar 24, 2020 at 13:05 Medical Diagnosis: CVA Onset Date: Mar 24, 2020 Therapy Diagnosis Therapy Diagnosis: impaired mobility, strength, endurance, balance, left hemiparesis Precautions Precautions/Isolations: Fall Prevention, Standard Precautions Referral Physician: Prudencio Reason for Referral: Evaluation/Treatment Medical History Pertinent Medical History: HTN Additional Medical History Past Medical History Cardiac: Hypertension Neurological: Developmental Disorder Psychosocial: Bipolar Reviewed History: Yes Social History Current Living Status: Spouse Entry Into Home: Stairs Without Railing PT Steps Into Home: 3 Prior Prior Level of Function SCALE: Activities may be completed with or without assistive devices. 0-Qpxudzzmvn-ulsvmxl completes the activity by him/herself with no assistance from a helper. 5-Set-up or Clean-up Assistance-helper sets up or cleans up; patient completes activity. [place] assists only prior to or following the activity. 4-Supervision or Touching Assistance-helper provides verbal cues and/or touching/steadying and/or contact guard assistance as patient completes activity. Assistance may be provided throughout the activity or intermittently. 3-Partial/Moderate Assistance-helper does LESS THAN HALF the effort. [place] lifts, holds or supports trunk or limbs, but provides less than half the effort. 2-Substantial/Maximal Assistance-helper does MORE THAN HALF the effort. [place] lifts or holds trunk or limbs and provides more than half the effort. 6-Roqbepbud-eoabvl does ALL the effort. Patient does none of the effort to complete the activity. Or, the assistance of 2 or more helpers is required for the patient to complete the activity. If activity was not attempted, code reason: 7-Patient Refused. 9-Not Applicable-not attempted and the patient did not perform the activity before the current illness, exacerbation or injury. 10-Not Attempted due to Environmental Limitations-(lack of equipment, weather restraints, etc.). 88-Not Attempted due to Medical Conditions or Safety Concerns. Bed Mobility: 6 Transfers (B,C,W/C): 6 Gait: 6 Stairs: 6 Indoor Mobility (Ambulation): Independent Stairs: Independent PT Evaluation-Current Subjective Patient in bed pre tx, agrees to PT, has no complaints of pain. Pt/Family Goals to be independent at home Objective Patient Orientation: Person, Place, Situation Attachments: Pickett Catheter ROM/Strength ROM Lower Extremities WNL Strength Lower Extremities RLE 5/5, LLE 0/5 Neuromuscular (Tone, Coordination, Reflexes) vision is hard to test but he seems to have left neglect and/or impaired peripheral vision Sensory Hearing: Functional Sensation Right Lower Extremit: Intact Sensation Left Lower Extremity: Intact Transfers Roll Left to Right (QC): 2 Sit to Lying (QC): 1 Lying to Sitting/Side of Bed(Q: 1 Patient dependent for supine <-> sit, sat at the edge of the bed for several minutes, leans heavily to the left and backwards, 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 Balance Sitting Static: Poor Sitting Dynamic: Poor Treatment LLE stretching in all planes, patient has some extensor tone in calf Assessment/Needs Patient has impaired mobility, strength, endurance. He leans heavily to the left side when sitting. Possible rehab candidate. Patient in bed post tx with nurse call, phone, tray, in room, laying on right side for pressure relief. Rehab Potential: Fair PT Detention Goals Detention Goals PT Short Haul Driver Goals Time Frame: Apr 01, 2020 Roll Left & Right (QC): 3 Sit to Lying (QC): 3 Lying-Sitting on Side/Bed(QC): 3 Sit to Stand (QC): 3 Chair/Nso-gx-Qabfo Xfer(QC): 3 PT Plan Problem List Problem List: Activity Tolerance, Functional Strength, Safety, Balance, Gait, Transfer, Bed Mobility, ROM Treatment/Plan Treatment Plan: Continue Plan of Care Treatment Plan: Bed Mobility, Education, Functional Activity [place], Functional Strength, Gait, Safety, Therapeutic Exercise, Transfers Treatment Duration: Apr 01, 2020 Frequency: 6 times per week Estimated Hrs Per Day: .25 hour per day Patient and/or Family Agrees t: Yes Safety Risks/Education Patient Education: Correct Positioning, Safety Issues Teaching Recipient: Patient Teaching Methods: Demonstration, Discussion Response to Teaching: Reinforcement Needed Discharge Recommendations Plan Patient will perform bed mobility and transfer training, balance and endurance training, functional strengthening, stair training, gait training, and education, to improve functional mobility and independence at home. Therapy Discharge Recommendati: Home & Family, Post Acute PT Time/GCodes Time In: 1108 Time Out: 1125 Total Billed Treatment Time: 17 Total Billed Treatment 1 visit MARK HARKINS PT Mar 25, 2020 11:36
--- NOTE | 2020-03-25 11:51 | Occupational Therapy Eval ---
OT Evaluation-General/PLF Medical Diagnosis Admission Date Mar 24, 2020 at 13:05 Medical Diagnosis: CVA Onset Date: Mar 24, 2020 Therapy Diagnosis Therapy Diagnosis: decr self care, weakness, decr funct mob, decr bed mob Precautions Precautions/Isolations: Fall Prevention, Standard Precautions Referral Physician: Prudencio Referral Reason: Evaluation/Treatment Medical History Pertinent Medical History: HTN Additional Medical History Developmental disorder "slightly autistic", bipolar Current History Admitted through ED with L sided paralysis and L sided neglect. Massive acute CVA of R MCA Reviewed History: Yes Social History Current Living Status: Spouse Entry Into Home: Stairs Without Railing Steps Into Home: 3 ADL-Prior Level of Function SCALE: Activities may be completed with or without assistive devices. 7-Vrxsrueqlq-kuseiwe completes the activity by him/herself with no assistance from a helper. 5-Set-up or Clean-up Assistance-helper sets up or cleans up; patient completes activity. [place] assists only prior to or following the activity. 4-Supervision or Touching Assistance-helper provides verbal cues and/or touching/steadying and/or contact guard assistance as patient completes activity. Assistance may be provided throughout the activity or intermittently. 3-Partial/Moderate Assistance-helper does LESS THAN HALF the effort. [place] l ifts, holds or supports trunk or limbs, but provides less than half the effort. 2-Substantial/Maximal Assistance-helper does MORE THAN HALF the effort. [place] lifts or holds trunk or limbs and provides more than half the effort. 1-Tutmbinxu-lpycyv does ALL the effort. Patient does none of the effort to complete the activity. Or, the assistance of 2 or more helpers is required for t he patient to complete the activity. If activity was not attempted, code reason: 7-Patient Refused. 9-Not Applicable-not attempted and the patient did not perform the activity before the current illness, exacerbation or injury. 10-Not Attempted due to Environmental Limitations-(lack of equipment, weather restraints, etc.). 88-Not Attempted due to Medical Conditions or Safety Concerns. ADL PLOF Comments Pt reported that he was responsible for maintaining their home. Indep with ADLs. He does drive. His is a charge nurse at [employer]. Self Care: Independent Functional Cognition: Independent OT Current Status Subjective Pt seen in room, up in bed, agreeable to OT. present. Pain reported 0/10 Appearance Alert, cooperative. Head turned toward R side, with difficulty turning past midline toward L side Mental Status/Objective Attachments: Pickett Catheter, IV, NG Tube, Telemetry Current Upper Extremity ROM R UE grossly WFL. L UE WFL passive, no active movement observed. Pt reported some L shoulder pain with PROM Upper Extremity Strength R UE 4/5. L UE 0/5. Pt has strong UE flexor tone which triggers spontaneously. Per PT, pt dependent sitting EOB. Difficulty tracking visually toward L side. Pt reported not seeing things in L visual field. ADL-Treatment ADL-Current Pt is NPO Education OT Patient Education: Purpose of tx/functional activities, Rehab process, Other (Results of evaluation and tx plan) Teaching Recipient: Patient, Significant Other Teaching Methods: Discussion Response to Teaching: Verbalize Understanding OT Short Term Goals Short Term Goals Time Frame: Apr 01, 2020 Eatin Oral hygiene: 4 OT Detention Goals Detention Goals Time Frame: Apr 15, 2020 Eating (QC): 5 Oral Hygiene (QC): 5 Toileting Hygiene (QC): 4 Shower/Bathe Self (QC): 4 Upper Body Dressing (QC): 5 Lower Body Dressing (QC): 4 On/Off Footwear (QC): 5 Additional Goals: 1-Demonstrate ADL Tasks, 2-Verbalize Understanding, 3- ImproveStrength/[place] 1=Demonstrate adherence to instructed precautions during ADL tasks. 2=Patient will verbalize/demonstrate understanding of assistive devices/modifications for ADL. 3=Patient will improve strength/tolerance for activity to enable patient to perform ADL's. OT Education/Plan Problem List/Assessment Assessment: Decreased UE Strength, Dependent Transfers, Impaired Bed Mobility, Impaired Self-Care Skills, Restricted Funct UE ROM Pt would benefit from skilled OT to increase his independence in basic self care to allow him to safely return home with his . Discharge Recommendations Plan/Recommendations: Continue POC Therapy Discharge Recommendati: Post Acute OT Treatment Plan/Plan of Care Treatment,Training & Education: Yes Patient would benefit from OT for education, treatment and training to promote independence in ADL's, mobility, safety and/or upper extremity function for ADL's. Plan of Care: ADL Retraining, Caregiver Training, Functional Mobility, Group Exercise/Act as Ind (education, exercise), UE Funct Exercise/Act, UE Neuromus Re-Ed/Coord, Visual/Perceptual Retrain Treatment Duration: Apr 15, 2020 Frequency: At least 5 of 7 days/Wk (IRF) Estimated Hrs Per Day: 1.5 hours per day Agreement: Yes Rehab Potential: Fair Time/GCodes Start Time: 10:55 Stop Time: 11:08 Total Time Billed (hr/min): 13 Billed Treatment Time visit, 13 minutes evaluation moderate intensity PEDRITO LORENZO OT Mar 25, 2020 11:51
--- NOTE | 2020-03-25 12:35 | ST Cognitive Linguistic Eval ---
Speech Evaluation-General Medical Diagnosis CVA Onset Date: Mar 24, 2020 Therapy Diagnosis Therapy Diagnosis: Aphasia Referral Referring Physician: Dr. Flannery Medical History Pertinent Medical History: HTN Reviewed History: Yes Social History Current Living Status: Spouse Speech PLF-Current Status Prior Level of Function Patient lived at home with his and was independent for his daily needs. Subjective Patient was cooperative with the speech evaluation. Language Eval: Auditory Comprehends Simple Yes/No Ques: Functional Indent/Objects Multiple Mejia: Functional Ident/Pics in Multiple Mejia: Functional Follows 1-Step Commands: Functional Follows Complex Directions: Mild Follows General Conversations: Mild Language Eval: Verbal Language Completes Spontaneous Greeting: Functional Produces Auto, Serial Info: Functional Imitates Simple Words/Phrases: Functional Word Finding: Functional Requests Basic Needs: Functional States Basic Personal Info: Functional Expresses Complex Ideas: Mild Objective Cognitive Domain Attention: WNL Memory: WNL Problem Solving: Mild Executive Functions: Moderate Objective Formal/Standardized Tests Subtests of the WAB, informal speech tasks, OME Results Patient has significant OM decrease on the left side. Patient's speech is intelligible at 70%. Patient's receptive language and expressive language are intact. Oral Motor/Speech Production Intelligibility is at 70% Impression Patient is a 50 y/o male who was admitted to the ED due to new onset CVA. Patient completed the speech test(s) with subtests of the WAB given, informal speech tasks and OME. Patient's expressive and receptive language skills are i ntact. Speech intelligibility is currently at 70%. Patient is noted to have significant decreased OM control on the left. Patient also completed a Bedside Dysphagia Evaluation with recommendations of Dysphagia I with nectar consistency liquids. Patient will receive ST services for OM needs related to speech production and swallowing. Speech Short Term Goals Short Term Goals Short Term Goals 1) Patient will tolerate least restrictive diet without s/s of aspiration at 90% or greater. 2) Patient/caregiver will utilize compensatory strategies as trained for safe oral intake at 90% or greater with minimal cuing. 3) Patient will complete OME x10 with attention to the buccal area and lingual control at 90% with minimal cuing. 4) Patient will complete speech tasks with 90% given minimal cues. Speech Mcc Goals Account Representative Goals Patient will maintain adequate nutrition/hydration via safe effective swallow. Patient will improve speech production to effectively communicate. Speech-Plan Patient/Family Goals Patient/Family Goals: Patient plans on returning to his home upon hospital discharge. Treatment Plan Speech Therapy Treatment Plan: Continue Plan of Care Treatment Duration: Apr 03, 2020 Frequency: 5 times per week Estimated Hrs Per Day: .25 hour per day Rehab Potential: Good Barriers to Learning: New onset CVA Pt/Family Agrees to Plan: Yes Safety Risks/Education Teaching Recipient: Patient Teaching Methods: Demonstration, Discussion Response to Teaching: Verbalize Understanding, Return Demonstration, Reinforcement Needed Education Topics Provided: Speech production exercises Time Speech Therapy Time In: 08:27 Speech Therapy Time Out: 08:40 Total Billed Time: 13 Billed Treatment Time 1, SPSBRIAN Isaac Mar 25, 2020 12:35
--- NOTE | 2020-03-25 12:53 | NUR ---
CM/SS visited with patient for social service consult. The patient was lying in bed with Carole ([phone]) at bedside during the visit. The patient was pleasant and able to communicate verbally. CM/SS discussed with the patient and Carole the options in regards to physical rehabilitation such as inpatient rehab unit, care home home facility, and home health. CM/SS informed the patient that his need may be too high for home health. The patient stated he would like to get back home; however, the patients reports she would like him to do inpatient rehab. The patient appeared agreeable with that plan. 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 CM/SS copied pictures of the patients insurance card and place them in the paper chart along with providing it to December in [facility]. The patients states that she is working at [employer] but has this week off. Home: The patients reports that their house is not wheelchair accessible due to the house being added on. She reports the EMS couldn't get a gurney in through the house. CM/SS will continue to follow for discharge planning.
[2020-03-25] MEDS: ENOXAPARIN 40 MG/0.4 ML (LOVENOX) SYR SC SCH (17:19)
[2020-03-25] MEDS: ACETAMINOPHEN 325 MG TABLET PO PRN (17:46)
[2020-03-26] MEDS: ACETAMINOPHEN 325 MG TABLET PO PRN ×2 (01:21→18:41)
[2020-03-26 03:34] LABS: BASOPHILS % (AUTO) 0 % (0-10); EOSINOPHILS # (AUTO) 0.1 10^3/uL (0.0-0.3); EOSINOPHILS % (AUTO) 1 % (0-10); HEMATOCRIT 38 % (40-54); HEMOGLOBIN 12.6 G/DL (13.3-17.7); LYMPHOCYTES # (AUTO) 1.7 X 10^3 (1.0-4.0); LYMPHOCYTES % (AUTO) 15 % (12-44); MEAN CORPUSCULAR HEMOGLOBIN 29 PG (25-34); MEAN CORPUSCULAR HGB CONC 33 G/DL (32-36); MEAN CORPUSCULAR VOLUME 89 FL (80-99); MEAN PLATELET VOLUME 10.4 FL (7.4-10.4); MONOCYTES # (AUTO) 0.6 X 10^3 (0.0-1.0); MONOCYTES % (AUTO) 5 % (0-12); NEUTROPHILS % (AUTO) 78 % (42-75); PLATELET COUNT 304 10^3/uL (130-400); RED CELL DISTRIBUTION WIDTH 12.7 % (10.0-14.5); WHITE BLOOD COUNT 11.4 10^3/uL (4.3-11.0)
[2020-03-26 03:39] VITALS: BP 125/77
[2020-03-26 03:52] LABS: CHLORIDE 108 MMOL/L (98-107); POTASSIUM 4.1 MMOL/L (3.6-5.0); SODIUM 139 MMOL/L (135-145)
[2020-03-26 03:53] LABS: CALCIUM 8.6 MG/DL (8.5-10.1)
[2020-03-26 03:54] LABS: GLUCOSE 122 MG/DL (70-105)
[2020-03-26 03:56] LABS: CARBON DIOXIDE 21 MMOL/L (21-32)
[2020-03-26 03:58] LABS: CREATININE SERUM 0.72 MG/DL (0.60-1.30); GFR ESTIMATED > 60; PHOSPHORUS 2.5 MG/DL (2.3-4.7)
[2020-03-26 03:59] LABS: BUN/CREATININE RATIO 17
[2020-03-26 04:00] LABS: MAGNESIUM 2.3 MG/DL (1.6-2.4)
[2020-03-26] MEDS: D5 1/2 NS W/KCL 20 MEQ/L 1,000 ML IV SCH ×2 (05:49→13:54)
--- NOTE | 2020-03-26 07:05 | Diagnostic Imaging Report ---
Indication: Dyspnea. Comparison: 03/25 at 2311 hours. Findings: Single view of the chest demonstrates slightly worsening infiltrate in the mid left lung. The right lung is stable. There is no pneumothorax or effusion. Osseous structures stable. Enteric tube has been removed. Impression: Slightly increasing left midlung infiltrate. Dictated by: Dictated on workstation # [id number]
[2020-03-26 08:00] VITALS: BP 122/77
--- NOTE | 2020-03-26 08:02 | Pulmonary Progress Note ---
Subjective Time Seen by a Provider: 07:58 Sepsis Event Evaluation Height, Weight, BMI Height: '" Weight: lbs. oz. kg; 33.70 BMI Method: Exam Exam Vital Signs Date Time Temp Pulse Resp B/P (MAP) Pulse Ox O2 Delivery O2 Flow Rate FiO2 03/26/20 03:39 36.6 80 18 125/77 (93) 96 Room Air 03/26/20 01:51 37.3 03/26/20 01:27 37.7 03/26/20 01:21 37.7 03/26/20 01:00 92 03/25/20 23:54 37.7 94 18 128/89 (102) 97 Room Air 03/25/20 21:00 94 Room Air 03/25/20 19:42 36.9 79 18 110/70 (83) 97 Room Air 03/25/20 19:00 85 03/25/20 15:59 37.7 87 22 110/70 (83) 97 Room Air 03/25/20 12:47 96 03/25/20 12:00 92 22 137/71 (93) 95 Room Air 03/25/20 12:00 37.6 03/25/20 11:00 92 20 121/73 (89) 96 Room Air 03/25/20 10:00 90 23 153/86 (108) 95 Room Air 03/25/20 09:00 92 22 151/80 (103) 95 Room Air 03/25/20 08:00 37.1 03/25/20 08:00 86 24 136/80 (98) 94 Room Air I & O 03/26/20 07:00 Intake Total 520 ml Output Total 2225 ml Balance -1705 ml Height & Weight Height: '" Weight: lbs. oz. kg; 33.70 BMI Method: General Appearance: No Apparent Distress, WD/WN HEENT: Moist Mucous Membranes, Other Neck: Normal Inspection, Supple Respiratory: Lungs Clear, No Respiratory Distress Cardiovascular: Regular Rate, Rhythm, No Murmur Capillary Refill: Less Than 3 Seconds Peripheral Pulses: 2+ Dorsalis Pedis (R), 2+ Left Dors-Pedis (L), 2+ Radial Pulses (R), 2+ Radial Pulses (L) Gastrointestinal: normal bowel sounds, non tender, soft, no organomegaly, no pulsatile mass Extremity: No Calf Tenderness, No Pedal Edema Neurologic/Psychiatric: Alert, Oriented x3, Motor Weakness Results Lab Laboratory Tests 03/24/20 12:31 03/25/20 03:00 03/26/20 03:20 Assessment/Plan Assessment/Plan Pneumonia - possible aspiration -Start Zosyn -Check BNP and PCT -Decrease IVF to 75cc/hr Large right acute MCA infarct with left sided paralysis -ASA -Swallow study -Currently NPO -Pt has an OG tube currently -Speech therapy is consulted -Pt may need PEG tube -Echo, carotid dopplers pending -PT/OT Dysphasia JEAN WILSON DO Mar 26, 2020 08:02
[2020-03-26] MEDS ORDERED: PIPERACILLIN/TAZO 4.5 GM/NS 100 ML IV ONE ×2 (08:30)
[2020-03-26] MEDS: ASPIRIN 81 MG CHEW (CHILDREN'S ASA) PO SCH (09:19)
--- NOTE | 2020-03-26 09:23 | Progress Note - Hospitalist ---
Subjective HPI/CC On Admission Date Seen by Provider: Mar 26, 2020 Time Seen by Provider: 09:10 Pt is a 50yoCM who presented to the ER due to left sided weakness. He states he got up to go to the bathroom at 0100 yesterday morning and his left leg wouldn't work. Later his found him with this deficit and called EMS. On arrival he had a NIH of 24. He had left sided paralysis and with neglect and fixed gaze. Apparently his works at [employer] and was positive for COVID19 1 month ago. Patient tested negative at that time via PCR. He has had no COVID symptoms and his remained asymptomatic the whole time and has been off quarantine for 2 weeks. Pt denies any past medical history but states he has not been to the doctor in over 20 years. He has no other complaints and states he is "kind of scared" with everything going on. Subjective/Events-last exam Pt reports doing better today. Still has significant weakness but feels swallowing is better and more awake. Objective Exam Vital Signs Vital Signs Date Time Temp Pulse Resp B/P (MAP) Pulse Ox O2 Delivery O2 Flow Rate FiO2 03/26/20 03:39 36.6 80 18 125/77 (93) 96 Room Air 03/25/20 01:00 2.00 Capillary Refill : Less Than 3 Seconds General Appearance: No Apparent Distress, WD/WN Respiratory: Lungs Clear, No Respiratory Distress Cardiovascular: Regular Rate, Rhythm, No Murmur Neurologic/Psychiatric: Alert, Oriented x3, Motor Weakness (left sided) Results/Procedures Lab Laboratory Tests 03/26/20 03:20 Patient resulted labs reviewed. Imaging: Reviewed Imaging Report Assessment/Plan Assessment and Plan Assess & Plan/Chief Complaint Acute Right MCA Stroke CT yesterday shows mild mass effect I discussed with Dr Peace at [facility] at 0810 who recommended no changes but to be cautious a repeat noncontrast CT Head to monitor mass effect COVID Ab positive, could likely be a contributing factor to large CVA in otherwise low risk patient, discussed with [facility] and they agreed could be etioogy but to continue normal workup for stroke Discussed with Dr Arevalo though who will evaluate for loop recorder as well and recommended echo with bubble study PT/OT, would likely benefit from IRU Speech Therapy to continue Continue Lipitor HTN BP within goal trend Left lung infiltrate Procal ordered ? aspiration Started on Zosyn COVID19 sequela Discussed with operating theatre technician, not symptomatic so does not need isolation DVT ppx: Lovenox following CT Diagnosis/Problems Diagnosis/Problems (1) Acute right MCA stroke Status: Acute (2) Coronavirus infection, unspecified Status: Chronic (3) Dysphasia due to recent cerebrovascular accident (CVA) Status: Acute (4) Left-sided neglect Status: Acute Clinical Quality Measures DVT/VTE Risk/Contraindication: Risk Factor Score Per Nursin RFS Level Per Nursing on Admit: 4+=Very High Stroke: Symptoms onset unknown: Yes MEREDITH WILKERSON MD Mar 26, 2020 09:23
--- NOTE | 2020-03-26 10:17 | NUR ---
IRF Evaluation Received order to evaluate patient for the ARU. Chart review complete and findings discussed with Dr. Hyman. Will meet with patient and spouse to discuss program. Attempted to speak with patient's , Carole; however, she did not answer and a message was left. It is noted patient's primary insurance provider is [employer]; therefore, prior authorization will need to be obtained. Will continue to follow. Thank you for this referral. Addendum: 03/26/20 at 1131 by MARY JO CONTE Spoke with Carole in regards to rehab program. She gave this movie writer permission to submit clinical information to insurance for determination. Will be meeting with patient to have similar conversation. Will continue to follow.
--- NOTE | 2020-03-26 11:37 | Physical Therapy Daily Note ---
PT Daily Note-Current Subjective Patient in bed pre tx, agrees to PT, has unrated pain in back. Appearance Patient in recliner post tx with nurse call, family in room, legs elevated, pillow support Mental Status Patient Orientation: Person, Place, Situation Attachments: Pickett Catheter, IV Transfers SCALE: Activities may be completed with or without assistive devices. 1-Nkfhiqjzbi-wnamgek completes the activity by him/herself with no assistance from a helper. 5-Set-up or Clean-up Assistance-helper sets up or cleans up; patient completes activity. [place] assists only prior to or following the activity. 4-Supervision or Touching Assistance-helper provides verbal cues and/or touching/steadying and/or contact guard assistance as patient completes activity. Assistance may be provided throughout the activity or intermittently. 3-Partial/Moderate Assistance-helper does LESS THAN HALF the effort. [place] lifts, holds or supports trunk or limbs, but provides less than half the effort. 2-Substantial/Maximal Assistance-helper does MORE THAN HALF the effort. [place] lifts or holds trunk or limbs and provides more than half the effort. 9-Mqcjkvdzr-mslvik does ALL the effort. Patient does none of the effort to complete the activity. Or, the assistance of 2 or more helpers is required for the patient to complete the activity. If activity was not attempted, code reason: 7-Patient Refused. 9-Not Applicable-not attempted and the patient did not perform the activity before the current illness, exacerbation or injury. 10-Not Attempted due to Environmental Limitations-(lack of equipment, weather restraints, etc.). 88-Not Attempted due to Medical Conditions or Safety Concerns. Roll Left & Right (QC): 1 Lying to Sitting/Side of Bed(Q: 1 Sit to Stand (QC): 1 Chair/Zqw-sg-Fsxjb Xfer(QC): 1 Stand pivot transfer to recliner, dependent. 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 Treatments bed mobility and transfer to recliner Assessment Current Status: Poor Progress Patient has severe pushers syndrome, poor prognosis to improve functional m obility PT Ichthyologist Goals Ichthyologist Goals PT Jail Goals Time Frame: Apr 01, 2020 Roll Left & Right (QC): 3 Sit to Lying (QC): 3 Lying-Sitting on Side/Bed(QC): 3 Sit to Stand (QC): 3 Chair/Mxa-yp-Srext Xfer(QC): 3 PT Plan Problem List Problem List: Activity Tolerance, Functional Strength, Safety, Balance, Gait, Transfer, Bed Mobility, ROM Treatment/Plan Treatment Plan: Continue Plan of Care Treatment Plan: Bed Mobility, Education, Functional Activity [place], Functional Strength, Gait, Safety, Therapeutic Exercise, Transfers Treatment Duration: Apr 01, 2020 Frequency: 6 times per week Estimated Hrs Per Day: .25 hour per day Patient and/or Family Agrees t: Yes Safety Risks/Education Patient Education: Transfer Techniques, Correct Positioning, Safety Issues Teaching Recipient: Patient Teaching Methods: Demonstration, Discussion Response to Teaching: Reinforcement Needed Time/GCodes Time In: 1115 Time Out: 1128 Total Billed Treatment Time: 13 Total Billed Treatment 1 visit FA MARK BALLARD PT Mar 26, 2020 11:37
--- NOTE | 2020-03-26 11:43 | NUR ---
MAGALYS/INÉS follow up. MAGALYS/INÉS spoke with the patients Carole to discuss discharge planning. MAGALYS/INÉS informed her that inpatient rehab is evaluating for acceptance. She verbalized understanding. She requested that someone in the Inpatient Unit contact her to discuss the option and process. MAGALYS/SS informed Lina SS. December reported to this sw that the patient's requested that she is the one to speak with patient about inpatient rehab to see if he will be agreeable. Carole reported that the patient has been "considered" disabled for many years with mental illness but was never willing to apply for social security disability. Carole verbalized that it would be helpful for him to have that due to needing assistance in the home. MAGALYS/SS contacted Mallorie to assist with social security disability. Mallorie gave this sw the office number to help them make an appointment. The patient's requested that this sw help set up a conference with the patients physician to discuss the patients CT scan and plans for medical treatment. MAGALYS/INÉS spoke with physician who is agreeable to meet with Carole. A time was set up for 10:00 a.m. tomorrow 03/27 for them to meet. MAGALYS/SS will continue to follow.
[2020-03-26 12:00] VITALS: BP 149/83
[2020-03-26] MEDS ORDERED: LIDOCAINE 1% INJ 20 ML 20 ML VIAL ONE (12:09)
[2020-03-26] MEDS ORDERED: LIDOCAINE 1% INJ 20 ML 20 ML VIAL INJ ONE (12:15)
--- NOTE | 2020-03-26 13:09 | Occupational Ther Daily Note ---
OT Current Status-Daily Note Subjective Pt in bed, agrees to therapy. Pt reports 7/10 back pain. ADL-Treatment Therapy Code Descriptions/Definitions Functional Catron Measure: 0=Not Assessed/NA 4=Minimal Assistance 1=Total Assistance 5=Supervision or Setup 2=Maximal Assistance 6=Modified Catron 3=Moderate Assistance 7=Complete IndependenceSCALE: Activities may be completed with or without assistive devices. 8-Onoztkpubk-qawnxew completes the activity by him/herself with no assistance from a helper. 5-Set-up or Clean-up Assistance-helper sets up or cleans up; patient completes activity. Bosler assists only prior to or following the activity. 4-Supervision or Touching Assistance-helper provides verbal cues and/or touching/steadying and/or contact guard assistance as patient completes activity. Assistance may be provided throughout the activity or intermittently. 3-Partial/Moderate Assistance-helper does LESS THAN HALF the effort. Bosler lifts, holds or supports trunk or limbs, but provides less than half the effort. 2-Substantial/Maximal Assistance-helper does MORE THAN HALF the effort. Bosler l ifts or holds trunk or limbs and provides more than half the effort. 4-Zborluxpn-mwjifo does ALL the effort. Patient does none of the effort to complete the activity. Or, the assistance of 2 or more helpers is required for the patient to complete the activity. If activity was not attempted, code reason: 7-Patient Refused. 9-Not Applicable-not attempted and the patient did not perform the activity before the current illness, exacerbation or injury. 10-Not Attempted due to Environmental Limitations-(lack of equipment, weather restraints, etc.). 88-Not Attempted due to Medical Conditions or Safety Concerns. Other Treatment Pt supine to sit with assist x2. Pt sat EOB for ~8 minutes. Pt pushes to left in sitting and requires assist to maintain balance. Pt is able to follow cues to attempt to improve sitting balance/posture, but is unable to maintain positioning. Pt has poor attention to left even with multiple cues. Pt washed face with right UE with mod assist while seated EOB. Sit to supine with total assist. Pt dependent to scoot to HOB and reposition. PROM completed left UE at all joints. Pt does not demonstrate any active movement. Skilled cues to attend to left side during exercises. Pt has no c/o pain during ROM. Pt in bed with nee ds met and daughter present after session. OT Short Term Goals Short Term Goals Time Frame: Apr 01, 2020 Eatin Oral hygiene: 4 OT Marketing Communications Coordinator Goals [facility] Goals Time Frame: Apr 15, 2020 Eating (QC): 5 Oral Hygiene (QC): 5 Toileting Hygiene (QC): 4 Shower/Bathe Self (QC): 4 Upper Body Dressing (QC): 5 Lower Body Dressing (QC): 4 On/Off Footwear (QC): 5 Additional Goals: 1-Demonstrate ADL Tasks, 2-Verbalize Understanding, 3- ImproveStrength/[place] 1=Demonstrate adherence to instructed precautions during ADL tasks. 2=Patient will verbalize/demonstrate understanding of assistive devices/modifications for ADL. 3=Patient will improve strength/tolerance for activity to enable patient to perform ADL's. OT Education/Plan Discharge Recommendations Plan/Recommendations: Continue POC Treatment Plan/Plan of Care Patient would benefit from OT for education, treatment and training to promote independence in ADL's, mobility, safety and/or upper extremity function for ADL's. Plan of Care: ADL Retraining, Caregiver Training, Functional Mobility, Group Exercise/Act as Ind (education, exercise), UE Funct Exercise/Act, UE Neuromus Re-Ed/Coord, Visual/Perceptual Retrain Treatment Duration: Apr 15, 2020 Frequency: At least 5 of 7 days/Wk (IRF) Estimated Hrs Per Day: 1.5 hours per day Agreement: Yes Rehab Potential: Good Time/GCodes Start Time: 10:47 Stop Time: 11:11 Total Time Billed (hr/min): 24 Billed Treatment Time 1 visit, SARA(12minutes), CHAUNCEY(12minutes) PATSY MARTINEZ OT Mar 26, 2020 13:09
--- NOTE | 2020-03-26 13:36 | Speech Therapy Daily Note ---
Speech Daily Progress Note Subjective Date Seen by Provider: Mar 26, 2020 Time Seen by Provider: 00:25 Patient was sitting up in his recliner. He was more alert and talkative this date. Speech has improved with regard to intelligibility. Objective Patient completed a series of small sips of thin liquids with cough/clear intermittently with 75% accuracy. Assessment Assessment Current Status: Good Progress Treatment Plan Continue Plan of Care Speech Short Term Goals Short Term Goals Short Term Goals 1) Patient will tolerate least restrictive diet without s/s of aspiration at 90% or greater. 2) Patient/caregiver will utilize compensatory strategies as trained for safe oral intake at 90% or greater with minimal cuing. 3) Patient will complete OME x10 with attention to the buccal area and lingual control at 90% with minimal cuing. 4) Patient will complete speech tasks with 90% given minimal cues. Speech Server Software Engineer Goals Half-Way Goals Patient will maintain adequate nutrition/hydration via safe effective swallow. Patient will improve speech production to effectively communicate. Speech-Plan Patient/Family Goals Patient/Family Goals: Patient plans on returning to his home with his family upon discharge. Treatment Plan Speech Therapy Treatment Plan: Continue Plan of Care Treatment Duration: Apr 03, 2020 Frequency: 5 times per week Estimated Hrs Per Day: .25 hour per day Rehab Potential: Good Barriers to Learning: Patient's recent CVA Pt/Family Agrees to Plan: Yes Safety Risks/Education Teaching Recipient: Patient, Family Teaching Methods: Demonstration, Discussion Response to Teaching: Verbalize Understanding, Return Demonstration Education Topics Provided: Continued safety with oral intake and the need to continue nectar consistency liquids. Time Speech Therapy Time In: 13:00 Speech Therapy Time Out: 13:25 Total Billed Time: 25 Billed Treatment Time SHASHANK Correa SLTS No [place], [address] Mar 26, 2020 13:36
--- NOTE | 2020-03-26 13:41 | NUR ---
"RD ASSESSMENT PMHx: HTN; developmental disorder PT INTERACTION: Pt was awake and pleasant during nutrition assessment. Note pt has developmental disorder, per chart review. Pt states current appetite is pretty good. Note avg PO intake <25% x2meal, per chart review. Pt states trying to follow a low-CHO diet at home, and has no issues with chewing/swallowing food. Pt states no recent issues with nausea, vomiting, constipation, or diarrhea, and that his last BM was 03/23. Note pt not currently on bowel regimen, per chart review. Pt states some recent intentional wt loss. Note unable to determine recent wt hx, per chart review. ABNORMAL NUTRITION-RELATED LAB VALUES LOW: HIGH: Cl 108; glu 122 Est. kcal needs: 1875 kcal | 20 kcal/kg Est. Pro needs: 75 g Pro | 0.8 g Pro/kg PES STATEMENT: Inadequate oral intake (NI-2.1) related to loss of appetite as evidenced by pt interview | avg PO intake <25% x2meal INTERVENTION: Continue with current diet order of DYS1 Pureed diet, with modifier of [place] Thick Liquids. Encouraged pt to eat when able. Will continue to follow and reassess as pt needs, intake, and status change. MONITOR/EVALUATE: PO Intake; Plan of Care; Hydration Status; Weight Status; Lab Values Jodi Hassan, MS, RD, LD"
--- NOTE | 2020-03-26 14:28 | Consultation-Cardiology ---
HPI-Cardiology Cardiology Consultation: Date of Consultation 03/26/20 Date of Admission Attending Physician May Flannery MD Admitting Physician Consulting Physician Shaggy AREVALO MD HPI: Time Seen by a Provider: 09:00 Chief Complaint: Acute stroke. This is a 50-year-old gentleman who presents with acute stroke. No cardiac complaints. Patient has history of hypertension. Denies active smoking. Pertinent family history is negative. Cardiac consultation for possible cardiac source of embolization. Review of Systems-Cardiology Review of Systems Constitutional: As described under HPI; No As described under HPI, No no symptoms reported, No chills, No fever, No lightheadedness Eyes: No As described under HPI, No no symptoms reported, No blindness, No bl urred vision, No contact lenses, No drainage, No decreased acuity, No foreign body sensation, No pain, No vision change Ears/Nose/Throat: No As described under HPI, No no symptoms reported, No chronic hearing loss, No ear discharge, No ear pain, No nasal drainage, No ulcerations Respiratory: No no symptoms reported; As described under HPI; No As described under HPI, No cough, No orthopnea, No shortness of breath, No SOB with excertion Cardiovascular: No no symptoms reported; As described under HPI; No As described under HPI, No chest pain, No edema, No irregular heart rate, No lightheadedness, No palpitations Gastrointestinal: No no symptoms reported, No As described under HPI, No abdomen distended, No abdominal pain, No blood streaked bowels, No constipation, No diarrhea, No nausea, No vomiting, No stool coloration changes Genitourinary: No As described under HPI, No burning, No dysuria, No discharge, No frequency, No flank pain, No hematuria, No urgency Skin: No rash, No skin related problems, No ulcerations Psychiatric/Neurological: As described under HPI; No anxiety, No depression, No seizure, No focal weakness, No syncope Hematologic: No bleeding abnormalities JOI-Llunav-Kolkaj Hx Patient Social History Marrital Status: Alcohol Use: Denies Use Recreational Drug Use: No Smoking Status: Never a Smoker Recent Foreign Travel: No Recent Infectious Disease Expo: No Past Medical History PMH As described under Assessment. Allergies and Home Medications Allergies Coded Allergies: No Known Drug Allergies (Unverified , 03/24/20) Home Medications Cranberry 400 Mg Capsule, 400 MG PO DAILY, (Reported) Dextromethorphn/Acetaminoph/Cp 354 Ml Liquid, 15-30 ML PO Q8H PRN for COUGH, (Reported) Garlic 500 Mg Capsule, 500 MG PO DAILY, (Reported) Milk Thistle Seed Extract 175 Mg Capsule, 175 MG PO DAILY, (Reported) Omeprazole 20 Mg Tablet.dr, 20 MG PO DAILY PRN for HEARTBURN, (Reported) Turmeric/Turmeric Root Extract 1 Each Capsule, 1 EACH PO DAILY, (Reported) [cbd] , 1 DROP SL DAILY, (Reported) Patient Home Medication List Home Medication List Reviewed: Yes Physical Exam-Cardiology Physical Exam Vital Signs/I&O Capillary Refill : Less Than 3 Seconds Constitutional: appears stated age, AAO x 3; No apparent distress; well- developed, well-nourished HEENT: PERRL; No discharge; hearing is well preserved, oral hygience is good; No ulceration, No xanthelasmas are seen Neck: No carotid bruit; carotid pulses are 2 + bilaterally Respiratory: chest is bilaterally symmetric, lungs clear to auscultation Cardiovascular: regular rate-rhythm, S1 and S2 Gastrointestinal: soft, audible bowel sounds; No spleenomegaly Rectal: deferred Extremities: normal range of motion, non-tender, normal inspection; No clubbing, No cyanosis; no lower extremity edema bilateral; No significant edema Neurologic/Psychiatric: no motor/sensory deficits, alert, normal mood/affect, oriented x 3, power is 5/5 both on sides Skin: normal color, warm/dry; No rash, No ulcerations Data Review Labs Microbiology 03/24/20 MRSA Screen - Final, Complete MRSA not isolated 03/24/20 Urine Culture - Final, Complete Escherichia coli ECG Impression ECG Initial ECG Rhythm: Normal Sinus Initial ECG Impression: Normal A/P-Cardiology Assessment/Admission Diagnosis Cryptogenic stroke Plan Cryptogenic stroke, no carotid disease. Telemetry over 48 hours did not show atrial fibrillation. Echocardiogram with bubble study did not show any evidence of intracardiac shunting. Long-term surveillance of atrial fibrillation is recommended. I spoke at length with the patient about an implantable loop recorder. Patient agrees. We will arrange. Thank you for your consultation. Please call me if you have any questions. Tiesha Arevalo MD, FACP, FACC, FSCAI, FHRS, CCDS Interventional Cardiology Cardiac Electrophysiology Vascular Medicine and Endovascular Interventions Clinical Quality Measures DVT/VTE Risk/Contraindication: Risk Factor Score Per Nursin RFS Level Per Nursing on Admit: 4+=Very High Stroke: Symptoms onset unknown: Yes Shaggy AREVALO MD Mar 26, 2020 14:28
--- NOTE | 2020-03-26 14:29 | Implantation of Loop Monitor ---
Implant of Loop Monitior PROCEDURE PHYSICIAN: Tiesha Arevalo MD IMPLANTATION OF LOOP MONITOR REPORT DATE OF PROCEDURE: 03/26/20 PERFORMING PHYSICIAN: Dr. Aroldo Arevalo. INDICATION: Cryptogenic stroke, Long-term surveillance of atrial fibrillation PREOP DIAGNOSIS: Cryptogenic stroke, Long-term surveillance of atrial fibrillation POSTOP DIAGNOSIS: Cryptogenic stroke, s/p implantation of loop recorder. PROCEDURE DETAILS: The patient is a 50 male with history of cryptogenic stroke. Therefore implantable loop recorder was discussed and agreed with the patient. Informed consent was taken. All risks and complications were discussed at length. The patient was draped and prepped in the usual sterile fashion. Local anesthesia was lidocaine, which was given in the substernal area close to the 4th intercostal space. Loop monitor was implanted according to the protocol. Steri- Strips were placed at the end of the procedure. There were no complications and the patient tolerated the procedure well. ANESTHESIA: Local anesthesia with lidocaine. COMPLICATIONS: None CONTRAST/FLUOROSCOPY: None CONCLUSION: 1. Successful implantation of loop monitor for cryptogenic stroke. 2. No complication and the patient tolerated the procedure well. Tiesha Arevalo MD, [facility] Cardiac Electrophysiology Shaggy AREVALO MD Mar 26, 2020 14:29
[2020-03-26] MEDS ORDERED: PIPERACILLIN/TAZOBACTAM (BULK) 4.5 GM in NS (IVPB) 100 ML IV SCH (14:30)
--- NOTE | 2020-03-26 14:58 | Physical Therapy Daily Note ---
PT Daily Note-Current Subjective Patient in recliner pre tx, agrees to PT, would like to get back into bed. Appearance Patient in bed post tx with nurse call, phone, tray, laying on left side for pressure relief, has pillow support, family in the room. Mental Status Patient Orientation: Person, Confused Attachments: Pickett Catheter, IV Transfers SCALE: Activities may be completed with or without assistive devices. 1-Sasfvvyztz-zhjepay completes the activity by him/herself with no assistance from a helper. 5-Set-up or Clean-up Assistance-helper sets up or cleans up; patient completes activity. [place] assists only prior to or following the activity. 4-Supervision or Touching Assistance-helper provides verbal cues and/or touching/steadying and/or contact guard assistance as patient completes activity. Assistance may be provided throughout the activity or intermittently. 3-Partial/Moderate Assistance-helper does LESS THAN HALF the effort. Ashkum lifts, holds or supports trunk or limbs, but provides less than half the effort. 2-Substantial/Maximal Assistance-helper does MORE THAN HALF the effort. Ashkum lifts or holds trunk or limbs and provides more than half the effort. 8-Zqgpfhune-xrylxm does ALL the effort. Patient does none of the effort to complete the activity. Or, the assistance of 2 or more helpers is required for the patient to complete the activity. If activity was not attempted, code reason: 7-Patient Refused. 9-Not Applicable-not attempted and the patient did not perform the activity before the current illness, exacerbation or injury. 10-Not Attempted due to Environmental Limitations-(lack of equipment, weather restraints, etc.). 88-Not Attempted due to Medical Conditions or Safety Concerns. Roll Left & Right (QC): 1 Sit to Lying (QC): 1 Chair/Qrl-ve-Qtagu Xfer(QC): 1 sit to stand machine used to transfer back to bed, 2 person dependent for sit to supine. Treatments bed mobility and transfers Assessment Current Status: Poor Progress dependent for all mobility PT Intermediate Goals Intermediate Goals PT Intermediate Goals Time Frame: Apr 01, 2020 Roll Left & Right (QC): 3 Sit to Lying (QC): 3 Lying-Sitting on Side/Bed(QC): 3 Sit to Stand (QC): 3 Chair/Vcc-bf-Zyamz Xfer(QC): 3 PT Plan Problem List Problem List: Activity Tolerance, Functional Strength, Safety, Balance, Gait, Transfer, Bed Mobility, ROM Treatment/Plan Treatment Plan: Continue Plan of Care Treatment Plan: Bed Mobility, Education, Functional Activity [place], Functional Strength, Gait, Safety, Therapeutic Exercise, Transfers Treatment Duration: Apr 01, 2020 Frequency: 6 times per week Estimated Hrs Per Day: .25 hour per day Patient and/or Family Agrees t: Yes Safety Risks/Education Patient Education: Transfer Techniques, Correct Positioning, Safety Issues Teaching Recipient: Patient Teaching Methods: Demonstration, Discussion Response to Teaching: Reinforcement Needed Time/GCodes Time In: 1430 Time Out: 1441 Total Billed Treatment Time: 11 Total Billed Treatment 1 visit FA 11' MARK RYAN PT Mar 26, 2020 14:58
--- NOTE | 2020-03-26 15:39 | Diagnostic Imaging Report ---
PROCEDURE: CT head without contrast. TECHNIQUE: Multiple contiguous axial images were obtained through the brain without the use of intravenous contrast. Auto Exposure Controls were utilized during the CT exam to meet ALARA standards for radiation dose reduction. INDICATION: Stroke, follow-up assessment. CORRELATION STUDY: 03/25/2020, 03/24/2020 FINDINGS: There has been continued evolution of the large right MCA vascular territory infarct. The overall extent of the edema does appear to be slightly increased. Does appear to be slightly more noticeable at about the high right frontal lobe region including along the parafalcine region of the high frontal lobe. Loss of sulci is present. Edema involves a large portion of the caudate centered at the level of the head. There is some effacement of the right lateral ventricle, generally stable. No significant midline shift. No findings to suggest areas of hemorrhagic transformation. IMPRESSION: 1. Continued evolution of the large right MCA vascular territory infarct. May be slight extension of the area of infarct and edema about the more superior frontal lobe region. No suggestion for areas of hemorrhagic transformation. There is localized mass effect upon the right lateral ventricle without significant midline shift. Dictated by: Dictated on workstation # [id number]
[2020-03-26 15:49] VITALS: BP 125/76
[2020-03-26] MEDS: ENOXAPARIN 40 MG/0.4 ML (LOVENOX) SYR SC SCH (17:37)
--- NOTE | 2020-03-26 18:40 | NUR ---
report given to Gian RN to assume care of patient. Patient transferred down to room 410 without incident. Personal belongings sent with patient. This RN called pt spouse, informing her of move et new room number. No questions from at this time.
--- NOTE | 2020-03-26 18:42 | NUR ---
Report received from Ayanna DENTAL TECHNOLOGY ADVISOR. Pt transferred to room 410. Pt tolerated transfer well.
[2020-03-26 19:21] VITALS: BP 136/68
[2020-03-26 23:55] VITALS: BP 135/71
[2020-03-27] MEDS ORDERED: PIPERACILLIN/TAZO 4.5 GM VIAL (ZOSYN) IV ONE (02:58)
[2020-03-27] MEDS: PIPERACILLIN/TAZOBACTAM (BULK) 4.5 GM in NS (IVPB) 100 ML IV SCH ×3 (03:13→17:23)
[2020-03-27] MEDS: D5 1/2 NS W/KCL 20 MEQ/L 1,000 ML IV SCH (03:13)
[2020-03-27 04:20] VITALS: BP 134/70
[2020-03-27 05:46] LABS: BASOPHILS % (AUTO) 0 % (0-10); EOSINOPHILS # (AUTO) 0.1 10^3/uL (0.0-0.3); EOSINOPHILS % (AUTO) 1 % (0-10); HEMATOCRIT 38 % (40-54); HEMOGLOBIN 12.1 G/DL (13.3-17.7); LYMPHOCYTES # (AUTO) 1.6 X 10^3 (1.0-4.0); LYMPHOCYTES % (AUTO) 18 % (12-44); MEAN CORPUSCULAR HEMOGLOBIN 29 PG (25-34); MEAN CORPUSCULAR HGB CONC 32 G/DL (32-36); MEAN CORPUSCULAR VOLUME 90 FL (80-99); MEAN PLATELET VOLUME 10.5 FL (7.4-10.4); MONOCYTES # (AUTO) 0.5 X 10^3 (0.0-1.0); MONOCYTES % (AUTO) 6 % (0-12); NEUTROPHILS # (AUTO) 6.8 X 10^3 (1.8-7.8); NEUTROPHILS % (AUTO) 75 % (42-75); PLATELET COUNT 283 10^3/uL (130-400); WHITE BLOOD COUNT 9.1 10^3/uL (4.3-11.0)
[2020-03-27 06:05] LABS: CHLORIDE 108 MMOL/L (98-107); POTASSIUM 4.2 MMOL/L (3.6-5.0); SODIUM 141 MMOL/L (135-145)
[2020-03-27 06:06] LABS: CALCIUM 8.6 MG/DL (8.5-10.1); GLUCOSE 113 MG/DL (70-105)
[2020-03-27 06:08] LABS: CARBON DIOXIDE 23 MMOL/L (21-32)
[2020-03-27 06:10] LABS: CREATININE SERUM 0.76 MG/DL (0.60-1.30); GFR ESTIMATED > 60; PHOSPHORUS 3.5 MG/DL (2.3-4.7)
[2020-03-27 06:11] LABS: BUN/CREATININE RATIO 18
[2020-03-27 06:13] LABS: MAGNESIUM 2.3 MG/DL (1.6-2.4)
[2020-03-27 08:00] VITALS: BP 123/79
[2020-03-27] MEDS ORDERED: PATCH REMOVAL TP SCH (09:00)
[2020-03-27] MEDS ORDERED: SCOPOLAMINE 1.5 MG (TRANSDERM-SCOP) PATCH TOP SCH (09:00)
[2020-03-27] MEDS: ACETAMINOPHEN 325 MG TABLET PO PRN ×2 (09:15→18:29)
[2020-03-27] MEDS: ASPIRIN 81 MG CHEW (CHILDREN'S ASA) PO SCH (09:16)
--- NOTE | 2020-03-27 09:28 | Pulmonary Progress Note ---
Subjective Time Seen by a Provider: 09:25 Subjective/Events-last exam PT appears to be doing better respiratory ramos. Sepsis Event Evaluation Height, Weight, BMI Height: '" Weight: lbs. oz. kg; 33.70 BMI Method: Exam Exam Vital Signs Date Time Temp Pulse Resp B/P (MAP) Pulse Ox O2 Delivery O2 Flow Rate FiO2 03/27/20 04:20 37.6 84 16 134/70 (91) 97 Room Air 03/27/20 01:00 76 03/26/20 23:55 36.8 88 14 135/71 (92) 96 Room Air 03/26/20 20:00 Room Air 03/26/20 19:21 37.8 95 20 136/68 (90) 97 Room Air 03/26/20 19:00 95 03/26/20 18:41 38.2 03/26/20 15:49 36.8 84 18 125/76 (92) 98 Room Air 03/26/20 12:00 36.9 87 20 149/83 (105) 97 Room Air I & O 03/27/20 07:00 Intake Total 1290 ml Output Total 2150 ml Balance -860 ml Height & Weight Height: '" Weight: lbs. oz. kg; 33.70 BMI Method: General Appearance: No Apparent Distress, WD/WN HEENT: Moist Mucous Membranes, Other Neck: Normal Inspection, Supple Respiratory: Lungs Clear, No Respiratory Distress Cardiovascular: Regular Rate, Rhythm, No Murmur Capillary Refill: Less Than 3 Seconds Peripheral Pulses: 2+ Dorsalis Pedis (R), 2+ Left Dors-Pedis (L), 2+ Radial Pulses (R), 2+ Radial Pulses (L) Gastrointestinal: normal bowel sounds, non tender, soft, no organomegaly, no pulsatile mass Extremity: No Calf Tenderness, No Pedal Edema Neurologic/Psychiatric: Alert, Oriented x3, Motor Weakness (left sided) Results Lab Laboratory Tests 03/26/20 03:20 03/27/20 05:00 Assessment/Plan Assessment/Plan Pneumonia - possible aspiration - Zosyn -For total Abx of 5 -7 days 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 I am going to sign off please call with any questions. JEAN WILSON DO Mar 27, 2020 09:28
--- NOTE | 2020-03-27 10:13 | Progress Note - Hospitalist ---
Subjective HPI/CC On Admission Date Seen by Provider: Mar 27, 2020 Time Seen by Provider: 09:00 Pt is a 50yoCM who presented to the ER due to left sided weakness. He states he got up to go to the bathroom at 0100 yesterday morning and his left leg wouldn't work. Later his found him with this deficit and called EMS. On arrival he had a NIH of 24. He had left sided paralysis and with neglect and fixed gaze. Apparently his works at [employer] and was positive for COVID19 1 month ago. Patient tested negative at that time via PCR. He has had no COVID symptoms and his remained asymptomatic the whole time and has been off quarantine for 2 weeks. Pt denies any past medical history but states he has not been to the doctor in over 20 years. He has no other complaints and states he is "kind of scared" with everything going on. Subjective/Events-last exam Pt reports doing well. Feeling better and thinks strength is improving. at bedside and going to give patient a bath. Objective Exam Vital Signs Vital Signs Date Time Temp Pulse Resp B/P (MAP) Pulse Ox O2 Delivery O2 Flow Rate FiO2 03/27/20 09:00 95 Room Air 2.00 03/27/20 08:00 36.3 85 24 123/79 (94) Capillary Refill : Less Than 3 Seconds General Appearance: No Apparent Distress, WD/WN Respiratory: Lungs Clear, No Respiratory Distress Cardiovascular: Regular Rate, Rhythm, No Murmur Neurologic/Psychiatric: Alert, Oriented x3, Motor Weakness (left side) Results/Procedures Lab Laboratory Tests 03/27/20 05:00 Patient resulted labs reviewed. Imaging: Reviewed Imaging Report Assessment/Plan Assessment and Plan Assess & Plan/Chief Complaint Acute Right MCA Stroke CT shows mild mass effect but stable on repeat COVID Ab positive, could likely be a contributing factor to large CVA in otherwise low risk patient, discussed with [facility] and they agreed could be etioogy but to continue normal workup for stroke Loop recorder placed by Dr Arevalo, appreciate assistance PT/OT, would benefit from IRU due to drastic change in functional status and potential for improvement with intensive therapies Speech Therapy to continue Continue Lipitor, ASA HTN BP within goal trend Left lung infiltrate Procal negative ? aspiration Continue Zosyn for now COVID19 sequela Discussed with hydroponics worker, not symptomatic so does not need isolation DVT ppx: Lovenox Diagnosis/Problems Diagnosis/Problems (1) Acute right MCA stroke Status: Acute (2) Coronavirus infection, unspecified Status: Chronic (3) Dysphasia due to recent cerebrovascular accident (CVA) Status: Acute (4) Left-sided neglect Status: Acute Clinical Quality Measures DVT/VTE Risk/Contraindication: Risk Factor Score Per Nursin RFS Level Per Nursing on Admit: 4+=Very High Stroke: Symptoms onset unknown: Yes MEREDITH WILKERSON MD Mar 27, 2020 10:13
--- NOTE | 2020-03-27 10:21 | Physical Therapy Daily Note ---
PT Daily Note-Current Subjective Patient in bed pre tx, agrees to PT, he has unrated pain he says on "tailbone". has been giving him a bath. Will be co-treating with OT due to poor patient mobility, strength, endurance, balance, left hemiparesis, pushers syndrome, the need to coordinate UE and LE during activity. Appearance Patient in recliner post tx with nurse call, phone, tray, all needs met, in room. Mental Status Patient Orientation: Person Attachments: Pickett Catheter, IV Transfers SCALE: Activities may be completed with or without assistive devices. 8-Vdmoqsdqdu-qgfisqm completes the activity by him/herself with no assistance from a helper. 5-Set-up or Clean-up Assistance-helper sets up or cleans up; patient completes activity. [place] assists only prior to or following the activity. 4-Supervision or Touching Assistance-helper provides verbal cues and/or touching/steadying and/or contact guard assistance as patient completes activity. Assistance may be provided throughout the activity or intermittently. 3-Partial/Moderate Assistance-helper does LESS THAN HALF the effort. [place] lifts, holds or supports trunk or limbs, but provides less than half the effort. 2-Substantial/Maximal Assistance-helper does MORE THAN HALF the effort. [place] lifts or holds trunk or limbs and provides more than half the effort. 7-Wuapadtey-jduplg does ALL the effort. Patient does none of the effort to complete the activity. Or, the assistance of 2 or more helpers is required for the patient to complete the activity. If activity was not attempted, code reason: 7-Patient Refused. 9-Not Applicable-not attempted and the patient did not perform the activity before the current illness, exacerbation or injury. 10-Not Attempted due to Environmental Limitations-(lack of equipment, weather restraints, etc.). 88-Not Attempted due to Medical Conditions or Safety Concerns. Roll Left & Right (QC): 2 Lying to Sitting/Side of Bed(Q: 1 Sit to Stand (QC): 1 Chair/Mbm-un-Xkhun Xfer(QC): 1 Patient rolled to the right side for cleaning of backside and applying skin cream. Patient dressed in gown and then sat on the side of the bed with max assist of 2, patient leans heavily to the left side, pushes to the left side, sit to stand machine used to transfer patient to the recliner. Exercises Seated Therapy Exercises: Ankle pumps, Long arc quads Seated Reps: 20 (RLE) LAQ attempted on the left but he is flaccid, PROM knee flexion/ext performed and left ankle stretching into dorsiflexion. Treatments bed mobility and transfers, LE exercise and stretching Assessment Current Status: Poor Progress no change in mobility, pushers syndrome PT Mcfp Goals Mcfp Goals PT Administrative Volunteer Goals Time Frame: Apr 01, 2020 Roll Left & Right (QC): 3 Sit to Lying (QC): 3 Lying-Sitting on Side/Bed(QC): 3 Sit to Stand (QC): 3 Chair/Fdt-qc-Iagxw Xfer(QC): 3 PT Plan Problem List Problem List: Activity Tolerance, Functional Strength, Safety, Balance, Gait, Transfer, Bed Mobility, ROM Treatment/Plan Treatment Plan: Continue Plan of Care Treatment Plan: Bed Mobility, Education, Functional Activity [place], Functional Strength, Gait, Safety, Therapeutic Exercise, Transfers Treatment Duration: Apr 01, 2020 Frequency: 6 times per week Estimated Hrs Per Day: .25 hour per day Patient and/or Family Agrees t: Yes Safety Risks/Education Patient Education: Transfer Techniques, Correct Positioning, Safety Issues Teaching Recipient: Patient Teaching Methods: Demonstration, Discussion Response to Teaching: Reinforcement Needed Time/GCodes Time In: 0940 Time Out: 1005 Total Billed Treatment Time: 25 Total Billed Treatment 1visit EX 10' FA 15' Co-treated for 25 min. PT performed bed mobility, rolling, supine to sit, transfer, LE exercise, OT performed bathing and dressing, assist with transfer, UE ROM and positioning during activity. MARK RYAN PT Mar 27, 2020 10:21
--- NOTE | 2020-03-27 10:33 | Occupational Ther Daily Note ---
OT Current Status-Daily Note Subjective Pt seen in bed, present, bed bath being completed by . Pt agrees to therapy, states pain on coccyx. Pt alert Mental Status/Objective Attachments: IV ADL-Treatment Therapy Code Descriptions/Definitions Functional [place] Measure: 0=Not Assessed/NA 4=Minimal Assistance 1=Total Assistance 5=Supervision or Setup 2=Maximal Assistance 6=Modified [place] 3=Moderate Assistance 7=Complete IndependenceSCALE: Activities may be completed with or without assistive devices. 4-Kkiyyasohs-npfrrmx completes the activity by him/herself with no assistance from a helper. 5-Set-up or Clean-up Assistance-helper sets up or cleans up; patient completes activity. [place] assists only prior to or following the activity. 4-Supervision or Touching Assistance-helper provides verbal cues and/or touch ing/steadying and/or contact guard assistance as patient completes activity. Assistance may be provided throughout the activity or intermittently. 3-Partial/Moderate Assistance-helper does LESS THAN HALF the effort. [place] lifts, holds or supports trunk or limbs, but provides less than half the effort. 2-Substantial/Maximal Assistance-helper does MORE THAN HALF the effort. [place] lifts or holds trunk or limbs and provides more than half the effort. 3-Lqsemskrb-nvuaig does ALL the effort. Patient does none of the effort to complete the activity. Or, the assistance of 2 or more helpers is required for the patient to complete the activity. If activity was not attempted, code reason: 7-Patient Refused. 9-Not Applicable-not attempted and the patient did not perform the activity before the current illness, exacerbation or injury. 10-Not Attempted due to Environmental Limitations-(lack of equipment, weather restraints, etc.). 88-Not Attempted due to Medical Conditions or Safety Concerns. Upper Body Dressing (QC): 3 (mod A gown donning- pt instructed to thread LUE through L arm hole by wrist, pt completes with accuracy. Pt's R donned with cues.) On/Off Footwear: 1 (TD for shoe/ sock donning. Pt unable to follow instruction to bend R knee) Toileting Hygiene (QC): 1 (TD with assist x2 to roll in bed and complete hygie ne./ barrier cream applied to coccyx ) Other Treatment Pt seen in bed. Pt alert, completing sponge bath. Assist with bed mob for rolling and hygiene for bottom. Pt bed mob TD. Sits EOB with use of R arm on bed rail to maintain upright position with min-mod A to maintain upright position, leaning toward L side. Use of sit to stand and TD to complete transfer to chair. Pt portioned in chair with pillows to assist L side leaning. Pt completes AAROM with skilled cues of hand/ wrist/ elbow during positioning; PROM completed to all joints to full range. pt c/o tightness in RTC mm during shoulder scaption, use of mm inhibitory techniques. Pt instructed to complete. Pt's questions travel pillow for support- instructed would be beneficial when fatigued but to encourage pt to utilize cervical mms for endurance/ functional tasks through day. Pt instructed to look toward L side during PROM/ AAROM. Able to track more to L side than previous notes. Pt left in chair with all needs met, jonathan thomas. Education OT Patient Education: Correct positioning, Exercise program, Home exercise program, Instructions to caregiver, Modified ADL techniques, Purpose of tx/functional activities, Safety issues, Transfer techniques Teaching Recipient: Patient Teaching Methods: Demonstration, Discussion Response to Teaching: Verbalize Understanding, Return Demonstration, Reinforcement Needed OT Short Term Goals Short Term Goals Time Frame: Apr 01, 2020 Eatin Oral hygiene: 4 OT Group Home Goals Continuous Mining Operator Goals Time Frame: Apr 15, 2020 Eating (QC): 5 Oral Hygiene (QC): 5 Toileting Hygiene (QC): 4 Shower/Bathe Self (QC): 4 Upper Body Dressing (QC): 5 Lower Body Dressing (QC): 4 On/Off Footwear (QC): 5 Additional Goals: 1-Demonstrate ADL Tasks, 2-Verbalize Understanding, 3- ImproveStrength/[place] 1=Demonstrate adherence to instructed precautions during ADL tasks. 2=Patient will verbalize/demonstrate understanding of assistive devices/modifications for ADL. 3=Patient will improve strength/tolerance for activity to enable patient to perform ADL's. OT Education/Plan Problem List/Assessment Assessment: Decreased Activ Tolerance, Decreased UE Strength, Dependent Transfers, Impaired Bed Mobility, Impaired Cognition, Impaired Coordination, Impaired Funct Balance, Impaired I ADL's, Impaired Self-Care Skills, Restricted Funct UE ROM, Visual-Perceptual Deficit Discharge Recommendations Plan/Recommendations: Continue POC Therapy Discharge Recommendati: 24 Hour Supervision, Post Acute OT Treatment Plan/Plan of Care Treatment,Training & Education: Yes Patient would benefit from OT for education, treatment and training to promote independence in ADL's, mobility, safety and/or upper extremity function for ADL's. Plan of Care: ADL Retraining, Caregiver Training, Functional Mobility, Group Exercise/Act as Ind (education, exercise), UE Funct Exercise/Act, UE Neuromus Re-Ed/Coord, Visual/Perceptual Retrain Treatment Duration: Apr 15, 2020 Frequency: At least 5 of 7 days/Wk (IRF) Estimated Hrs Per Day: 1.5 hours per day Agreement: Yes Rehab Potential: Good Time/GCodes Start Time: 09:40 Stop Time: 10:05 Total Time Billed (hr/min): 25 Billed Treatment Time 1, ADL, EX (25) CANDE LEWIS OTR Mar 27, 2020 10:33
--- NOTE | 2020-03-27 11:16 | NUR ---
CM/SS follow up. CM/SS visited with the patient and his Carole tommy a.m. to give them the phone number for Social Security office in [place]. She verbalized understanding. The physician had a meeting with patient and about CT scan and inpatient rehab. Inpatient rehab submitted for authorization on insurance. Awaiting acceptance and denial. CM/SS will continue to follow.
[2020-03-27 12:00] VITALS: BP 127/70
[2020-03-27] MEDS ORDERED: ARTIFICAL TEARS 0.4 ML UNIT DOSE (REFRESH PLUS) OU PRN (14:00)
--- NOTE | 2020-03-27 14:11 | Speech Therapy Daily Note ---
Speech Daily Progress Note Subjective Date Seen by Provider: Mar 27, 2020 Time Seen by Provider: 00:25 Patient alert and talkative. Patient's speech continued to improve with 90% intelligibility. Objective Patient completed trials of thin liquids and mechanical soft without difficulty. Patient is managing bolus of increased texture with 80-90% with minimal cues. Assessment Assessment Current Status: Good Progress Treatment Plan Continue Plan of Care Speech Short Term Goals Short Term Goals Short Term Goals 1) Patient will tolerate least restrictive diet without s/s of aspiration at 90% or greater. 2) Patient/caregiver will utilize compensatory strategies as trained for safe oral intake at 90% or greater with minimal cuing. 3) Patient will complete OME x10 with attention to the buccal area and lingual control at 90% with minimal cuing. 4) Patient will complete speech tasks with 90% given minimal cues. Speech Professor Of Latin American Studies Goals Snf Goals Patient will maintain adequate nutrition/hydration via safe effective swallow. Patient will improve speech production to effectively communicate. Speech-Plan Patient/Family Goals Patient/Family Goals: Patient plans on returning to his home with family as soon as he is able. Treatment Plan Speech Therapy Treatment Plan: Continue Plan of Care Patient is upgraded to mechanical soft texture (Dysphagia II) with thin liquids. Treatment Duration: Apr 03, 2020 Frequency: 5 times per week Estimated Hrs Per Day: .25 hour per day Rehab Potential: Good Barriers to Learning: Patient's recent CVA Pt/Family Agrees to Plan: Yes Safety Risks/Education Teaching Recipient: Patient, Significant Other Teaching Methods: Demonstration, Discussion Response to Teaching: Verbalize Understanding, Return Demonstration Education Topics Provided: Continued safety with oral intake Time Speech Therapy Time In: 13:45 Speech Therapy Time Out: 15:10 Total Billed Time: 25 Billed Treatment Time SHASHANK Correa SLTS No [place], BETH[address] ST Mar 27, 2020 14:11
[2020-03-27 15:38] VITALS: BP 132/77
[2020-03-27] MEDS: ENOXAPARIN 40 MG/0.4 ML (LOVENOX) SYR SC SCH (17:24)
--- NOTE | 2020-03-27 18:51 | Cardiology Progress Note ---
Cardiology SOAP Progress Note Subjective: No cardiac complaints. Objective: I&O/Vital Signs Constitutional: AAO x 3 Respiratory: chest is bilaterally symmetric, lungs clear to auscultation Cardiovascular: regular rate-rhythm, S1 and S2 Gastrointestional: soft Extremities: no lower extremity edema bilateral Neurologic/Psychiatric: no motor/sensory deficits, alert, normal mood/affect, oriented x 3 Skin: normal color Results/Procedures: Labs Microbiology 03/24/20 MRSA Screen - Final, Complete MRSA not isolated 03/24/20 Urine Culture - Final, Complete Escherichia coli A/P: Assessment/Dx: Cryptogenic stroke Plan: Cryptogenic stroke, no carotid disease. Telemetry over 48 hours did not show atrial fibrillation. Echocardiogram with bubble study did not show any evidence of intracardiac shunting. Long-term surveillance of atrial fibrillation is recommended. I spoke at length with the patient about an implantable loop recor julisa. Patient agrees. Implantable loop recorder done. Thank you for your consultation. Please call me if you have any questions. Tiesha Arevalo MD, FACP, FACC, FSCAI, FHRS, CCDS Interventional Cardiology Cardiac Electrophysiology Vascular Medicine and Endovascular Interventions Clinical Quality Measures Stroke: Symptoms onset unknown: Yes Shaggy AREVALO MD Mar 27, 2020 18:51
[2020-03-27 19:23] VITALS: BP 136/84
[2020-03-27] MEDS: HYDROcodone/APAP 5 MG/325 MG (LORTAB) TAB PO PRN (22:26)
[2020-03-27 23:57] VITALS: BP 130/79
[2020-03-28] MEDS: PIPERACILLIN/TAZOBACTAM (BULK) 4.5 GM in NS (IVPB) 100 ML IV SCH ×2 (02:41→09:32)
[2020-03-28 04:00] VITALS: BP 140/75
[2020-03-28 06:11] LABS: BASOPHILS % (AUTO) 0 % (0-10); EOSINOPHILS # (AUTO) 0.2 10^3/uL (0.0-0.3); EOSINOPHILS % (AUTO) 3 % (0-10); HEMATOCRIT 37 % (40-54); HEMOGLOBIN 12.2 G/DL (13.3-17.7); LYMPHOCYTES # (AUTO) 1.6 X 10^3 (1.0-4.0); LYMPHOCYTES % (AUTO) 21 % (12-44); MEAN CORPUSCULAR HEMOGLOBIN 29 PG (25-34); MEAN CORPUSCULAR HGB CONC 33 G/DL (32-36); MEAN CORPUSCULAR VOLUME 90 FL (80-99); MEAN PLATELET VOLUME 10.6 FL (7.4-10.4); MONOCYTES # (AUTO) 0.5 X 10^3 (0.0-1.0); MONOCYTES % (AUTO) 6 % (0-12); NEUTROPHILS # (AUTO) 5.3 X 10^3 (1.8-7.8); NEUTROPHILS % (AUTO) 70 % (42-75); PLATELET COUNT 274 10^3/uL (130-400); RED CELL DISTRIBUTION WIDTH 12.6 % (10.0-14.5); WHITE BLOOD COUNT 7.6 10^3/uL (4.3-11.0)
[2020-03-28 06:39] LABS: BUN/CREATININE RATIO 24; CALCIUM 8.8 MG/DL (8.5-10.1); CARBON DIOXIDE 24 MMOL/L (21-32); CHLORIDE 107 MMOL/L (98-107); CREATININE SERUM 0.75 MG/DL (0.60-1.30); GFR ESTIMATED > 60; GLUCOSE 105 MG/DL (70-105); MAGNESIUM 2.2 MG/DL (1.6-2.4); PHOSPHORUS 3.8 MG/DL (2.3-4.7); POTASSIUM 3.9 MMOL/L (3.6-5.0); SODIUM 141 MMOL/L (135-145)
[2020-03-28] MEDS: ASPIRIN 81 MG CHEW (CHILDREN'S ASA) PO SCH (07:55)
[2020-03-28] MEDS: HYDROcodone/APAP 5 MG/325 MG (LORTAB) TAB PO PRN (07:55)
[2020-03-28 08:00] VITALS: BP 138/80
--- NOTE | 2020-03-28 09:14 | Discharge Summary ---
Diagnosis/Chief Complaint Date of Admission Mar 24, 2020 at 13:05 Date of Discharge Admission Diagnosis Acute MCA Stroke Primary Care Discharge Diagnosis (1) Acute right MCA stroke Status: Acute (2) Coronavirus infection, unspecified Status: Chronic (3) Dysphasia due to recent cerebrovascular accident (CVA) Status: Acute (4) Left-sided neglect Status: Acute Discharge Summary Procedures/Consulations Dr Gibson- Pulmonology Dr Arevalo- Cardiology Discharge Physical Exam Allergies: Coded Allergies: No Known Drug Allergies (Unverified , 03/24/20) Vitals & I&Os Vital Signs Date Time Temp Pulse Resp B/P (MAP) Pulse Ox O2 Delivery O2 Flow Rate FiO2 03/28/20 09:56 03/28/20 09:00 94 Room Air 03/28/20 08:00 37.2 86 20 03/27/20 09:00 2.00 General Appearance: No Apparent Distress, WD/WN Cardiovascular: Regular Rate, Rhythm, No Murmur Neurologic/Psychiatric: Alert, Oriented x3, Motor Weakness (left sided) Hospital Course Pt is a 50yoCM who was admitted due to large right MCA stroke with left sided paralysis. [facility] Stroke Neurology was contacted multiple times and he was not a candidate for TPA or intervention unfortunately. He was seen by cardiology and echo was done which did not reveal any structural deficits. Telemetry did not reveal any atrial fibrillation and so a loop recorder was implanted. He was seen by PT/OT/ETHYLENE COMPRESSOR OPERATOR. He was deemed an appropriate candidate for IRU and was discharged there in stable condition. He was found to be COVID antibody positive but was asymptomatic and exposure was one month ago so he was not placed in isolation per guidelines. Labs (last 24 hrs) Microbiology 03/24/20 MRSA Screen - Final, Complete MRSA not isolated 03/24/20 Urine Culture - Final, Complete Escherichia coli Patient resulted labs reviewed. Pending Labs Imaging: Reviewed Imaging Report Discussion & Recommendations Discharge Planning: >30 minutes discharge planning Discharge Home Medications: Active Scripts Active Reported Vicks Nyquil Cold & Flu Liquid (Dextromethorphn/Acetaminoph/Cp) 354 Ml Liquid 15-30 Ml PO Q8H PRN Omeprazole 20 Mg Tablet.dr 20 Mg PO DAILY PRN Cranberry 400 Mg Capsule 400 Mg PO DAILY Milk Thistle (Milk Thistle Seed Extract) 175 Mg Capsule 175 Mg PO DAILY Turmeric 500 mg Capsule (Turmeric/Turmeric Root Extract) 1 Each Capsule 1 Each PO DAILY [cbd] 1 Drop SL DAILY Garlic 500 Mg Capsule 500 Mg PO DAILY Instructions to patient/family Please see electronic discharge instructions given to patient. Clinical Quality Measures DVT/VTE Risk/Contraindication: Risk Factor Score Per Nursin RFS Level Per Nursing on Admit: 4+=Very High Stroke: Symptoms onset unknown: Yes MEREDITH WILKERSON MD Mar 28, 2020 09:14
[2020-03-28] MEDS ORDERED: SERT50TA9 PO (10:45)
[2020-03-28] MEDS ORDERED: SERTRALINE 50 MG (ZOLOFT) TABLET PO SCH (21:00)
--- NOTE | 2020-03-29 08:53 | Physician Query Clarification ---
PQ-Intro New Diagnosis Admission/Discharge Admission Date: Mar 24, 2020 at 13:05 Discharge Date: Mar 28, 2020 at 09:50 Dr. Wasserman The medical record reflects the following clinical scenario: History/Risk Factors: Stroke Clinical Findings: 03/26 CXR - slightly increasing Lt midlung infiltrate, procalcitonin 0.05 Treatment: IV Zosyn, nasal canula Question: What condition best reflects the above clinical scenario? Please document a response in the Progress Noter or Discharge Summary. 1. aspiration pneumonia 2. pneumonia 3. Pneumonia ruled out. Lung infiltrate only 3. Other, with explanation of the clinical findings. 4. Clinically undetermined, no explanation for the clinical findings. PHYSICIAN RESPONSE What condition reflects above: 1 Please remember a lack of response to the above will prompt a phone page by CDI/Coding staff. In responding to this query, please exercise your independent professional judgment. The purpose of this communication is to more accurately reflect the complexity of your patients condition. The fact that a question is asked does not imply that any particular answer is desired or expected. Thank you for your timely response to this clarification. Requestors name: Khanh [email or web address] THIS PHYSICIAN QUERY FORM IS A PERMANENT PART OF THE MEDICAL RECORD KHANH FRANCO Mar 29, 2020 08:53 MEREDITH WASSERMAN MD Mar 30, 2020 11:30
--- NOTE | 2020-03-29 08:55 | Physician Query Clarification ---
PQ-Intro New Diagnosis Admission/Discharge Admission Date: Mar 24, 2020 at 13:05 Discharge Date: Mar 28, 2020 at 09:50 Dr. Wasserman, The medical record reflects the following clinical scenario: History/Risk Factors: Stroke Clinical Findings: UA - moderate bacteria, RBC 1+, Urine culture >100,000 e. coli Treatment: IV Piperacillin Question: What condition best reflects the above clinical scenario? Please document a response in the Progress Noter or Discharge Summary. 1. e. coli UTI 2. UTI ruled out 3. Other, with explanation of the clinical findings. 4. Clinically undetermined, no explanation for the clinical findings. PHYSICIAN RESPONSE What condition reflects above: 1 Please remember a lack of response to the above will prompt a phone page by CDI/Coding staff. In responding to this query, please exercise your independent professional judgment. The purpose of this communication is to more accurately reflect the complexity of your patients condition. The fact that a question is asked does not imply that any particular answer is desired or expected. Thank you for your timely response to this clarification. Requestors name: Khanh [email or web address] THIS PHYSICIAN QUERY FORM IS A PERMANENT PART OF THE MEDICAL RECORD KHANH FRANCO Mar 29, 2020 08:55 MEREDITH WASSERMAN MD Mar 30, 2020 11:30
== END 2020-03-28 09:50 | DRG 40 ==
LOC: EDUNIT# 12:24 → ER 12:25 → ICU 13:05 → CSD 03-25 13:40 → 4TH 03-26 18:08
PROVIDERS: ADMIT Internal Medicine; ATTEND Internal Medicine
PROC: 0D9670Z Drainage of Stomach with Drainage Device, Via Natural or Artificial Opening (ICD-10-PCS; principal; 2020-03-24)
PROC: 0JH632Z Insertion of Monitoring Device into Chest Subcutaneous Tissue and Fascia, Percutaneous Approach (ICD-10-PCS; 2020-03-26)
DX: I63.511 Cerebral infarction due to unspecified occlusion or stenosis of right middle cerebral artery (principal); U07.1 COVID-19; J69.0 Pneumonitis due to inhalation of food and vomit; G81.94 Hemiplegia, unspecified affecting left nondominant side; R41.4 Neurologic neglect syndrome; N39.0 Urinary tract infection, site not specified; R47.02 Dysphasia; R47.81 Slurred speech; R29.810 Facial weakness; F89 Unspecified disorder of psychological development; F31.9 Bipolar disorder, unspecified; R29.724 NIHSS score 24; I10 Essential (primary) hypertension; B96.20 Unspecified Escherichia coli [E. coli] as the cause of diseases classified elsewhere
CPT/HCPCS: 33285; 36415; 51702; 70450; 70470; 71045; 80048; 80053; 80061; 80306; 80320; 81000; 82550; 82553; 82962; 83735; 83874; 83880; 84100; 84145; 84484; 85025; 85379; 85610; 85730; 86769; 87077; 87081; 87088; 87186; 93005; 93041; 93306; 93880; 96374

== ENCOUNTER 2020-03-28 08:59 | Inpatient (IN) | payer OTHER ==
[~2020-03-28] VITALS: Ht 167.7 cm; Wt 80.9 kg
[~2020-03-28 08:59] MED LIST: CRAN400C PO; DEXT354L PO; GARL1TAB2 PO; GARL500C2 PO; MILK175C5 PO; OMEP20TA7 PO; TURM500C4 PO; cbd SL
[2020-03-28] MEDS ORDERED: FLEET ENEMA ADULT 1 EA BTL PR PRN (09:45)
[2020-03-28] MEDS ORDERED: DOCUSATE SODIUM 100 MG (COLACE) CAP PO PRN (09:45)
[2020-03-28] MEDS ORDERED: ALPRAZolam 0.25 MG (XANAX) TAB PO PRN (09:45)
[2020-03-28] MEDS ORDERED: LOPERAMIDE 2 MG (IMODIUM) TABLET PO PRN (09:45)
[2020-03-28] MEDS ORDERED: diphenhydrAMINE 25 MG TAB (BENADRYL) PO PRN (09:45)
[2020-03-28] MEDS ORDERED: guaiFENesin/CODEINE (ROBITUSSIN AC) 10ML UDC PO PRN (09:45)
[2020-03-28] MEDS ORDERED: CALCIUM CARBONATE 500 MG (TUMS) TAB.CHEW PO PRN (09:45)
[2020-03-28] MEDS ORDERED: MELATONIN 3 MG TABLET PO PRN (09:45)
--- NOTE | 2020-03-28 09:45 | NUR ---
ROBERTO RAMESH admitted to room , with an admitting diagnosis of CVA, on 03/28/20 from [facility] via , accompanied by STAFF.ROBERTO CHANDLER JR introduced to surroundings, call light, bed controls, phone, TV, temperature control, lights, meal times, smoking policy, visitor policy, side rail policy, bathrooms and showers. Patient Rights given to patient in the handbook.ROBERTO CHANDLER JR verbalizes understanding that [facility] is not responsible for the loss or damage to any personal effects or valuables that are kept in the patients posession during their hospitalization. The Patient PLAN OF CARE WAS discussed with the patient as well as Discharge Planning. ROBERTO CHANDLER JR verbalizes understanding of Interdisciplinary Patient Education. Patient and/or family were informed about the Rapid Response Team and its purpose. Patient received Patient Rights Booklet, which includes Privacy Act Statement and Data Collection Information Summary.
--- NOTE | 2020-03-28 10:34 | Occupational Therapy Eval ---
OT Evaluation-General/PLF Medical Diagnosis Admission Date Mar 28, 2020 at 09:40 Medical Diagnosis: CVA with left sided weakness Onset Date: Mar 24, 2020 Therapy Diagnosis Therapy Diagnosis: Weakness Weight Bear Status Weight Bearing Restriction: Weight Bearing/Tolerated Referral Physician: Dr. Hyman Referral Reason: Activity Tolerance, Self Care, Evaluation/Treatment, Strengthening/ROM Medical History Pertinent Medical History: HTN Current History Pt. sustained CVA with left sided weakness and neglect. Reviewed History: Yes Social History Home: Single Level Current Living Status: Spouse (and 17 year old daughter) Entry Into Home: Stairs Without Railing Steps Into Home: 4 ADL-Prior Level of Function SCALE: Activities may be completed with or without assistive devices. 1-Xzjacetyuc-fblwaid completes the activity by him/herself with no assistance from a helper. 5-Set-up or Clean-up Assistance-helper sets up or cleans up; patient completes activity. [place] assists only prior to or following the activity. 4-Supervision or Touching Assistance-helper provides verbal cues and/or touching/steadying and/or contact guard assistance as patient completes activity. Assistance may be provided throughout the activity or intermittently. 3-Partial/Moderate Assistance-helper does LESS THAN HALF the effort. [place] lifts, holds or supports trunk or limbs, but provides less than half the effort. 2-Substantial/Maximal Assistance-helper does MORE THAN HALF the effort. [place] lifts or holds trunk or limbs and provides more than half the effort. 0-Yooosdbcl-texeja does ALL the effort. Patient does none of the effort to complete the activity. Or, the assistance of 2 or more helpers is required for the patient to complete the activity. If activity was not attempted, code reason: 7-Patient Refused. 9-Not Applicable-not attempted and the patient did not perform the activity before the current illness, exacerbation or injury. 10-Not Attempted due to Environmental Limitations-(lack of equipment, weather restraints, etc.). 88-Not Attempted due to Medical Conditions or Safety Concerns. ADL PLOF Comments Pt. states that he was independent previous to this hospitalization. Self Care: Independent Functional Cognition: Unknown DME/Equipment: Tub/Shower Occupation: Pt. states that he does not work Drive Self: Yes OT Current Status Subjective Pt. reports pain in sacrum area. Pt. reports 8/10. Nursing aware. Pt. re- positioned. Appearance Pt. up in chair when OT entered room. Mental Status/Objective Patient Orientation: Person, Place Attachments: IV Current Upper Extremity ROM Flaccid left UE. No active movement noted. Right UE- WFL Upper Extremity Coordination Left impaired. ADL-Treatment Eating (QC): 88 Oral Hygiene (QC): 7 Shower/Bathe Self (QC): 7 Upper Body Dressing (QC): 7 Lower Body Dressing (QC): 7 On/Off Footwear (QC): 1 Toileting Hygiene (QC): 88 Pt. seen for initial OT evaluation. ADLs will be addressed at later session this date. Pt. initially declined. However, OT will address again. Other Treatments Pt. in room in reclining chair. Noted posture in slumped position, with head turned toward right side. OT assessed left UE. No active movement. Pt. agrees to transfer to wheelchair using sit-stand lift. In attempt to bring pt. forward at waist to don gait belt and sit to stand belt, Pt. required max assist and reports that this hurts. Pt. transferred with sit-stand lift and dependent assist to transfer to chair. Pt. encouraged to turn head to left side. Pt. is able to engage in conversation regarding home set up and previous level of function. OT will come back and perform ADL skills. Education OT Patient Education: Correct positioning, Exercise program, Modified ADL techniques, Progress toward Goal/Update tx plan, Purpose of tx/functional activities, Reviewed precautions, Rehab process, Transfer techniques Teaching Recipient: Patient Teaching Methods: Demonstration, Discussion Response to Teaching: Verbalize Understanding, Return Demonstration OT Short Term Goals Short Term Goals Time Frame: Apr 11, 2020 Eatin Oral hygiene: 3 Toileting hygiene: 3 Shower/bathe self: 2 Upper body dressin Lower body dressin Putting on/taking off footwear: 2 OT Sales Office Coordinator Goals Sales Office Coordinator Goals Time Frame: Apr 25, 2020 Eating (QC): 4 Oral Hygiene (QC): 4 Toileting Hygiene (QC): 3 Shower/Bathe Self (QC): 3 Upper Body Dressing (QC): 4 Lower Body Dressing (QC): 4 On/Off Footwear (QC): 4 Additional Goals: 1-Demonstrate ADL Tasks, 2-Verbalize Understanding, 3- ImproveStrength/[place] 1=Demonstrate adherence to instructed precautions during ADL tasks. 2=Patient will verbalize/demonstrate understanding of assistive devices/modifications for ADL. 3=Patient will improve strength/tolerance for activity to enable patient to perform ADL's. OT Education/Plan Problem List/Assessment Assessment: Decreased Activ Tolerance, Decreased Safety Aware, Decreased UE Strength, Dependent Transfers, Impaired Bed Mobility, Impaired Cognition, Impaired Coordination, Impaired Funct Balance, Impaired I ADL's, Impaired Self- Care Skills, Restricted Funct UE ROM, Visual-Perceptual Deficit Discharge Recommendations Plan/Recommendations: Continue POC Therapy Discharge Recommendati: 24 Hour Supervision, Post Acute OT Treatment Plan/Plan of Care Treatment,Training & Education: Yes Patient would benefit from OT for education, treatment and training to promote independence in ADL's, mobility, safety and/or upper extremity function for ADL's. Plan of Care: ADL Retraining, Functional Mobility, UE Funct Exercise/Act, UE Neuromus Re-Ed/Coord, Visual/Perceptual Retrain Treatment Duration: Apr 25, 2020 Frequency: At least 5 of 7 days/Wk (IRF) Estimated Hrs Per Day: 1.5 hours per day Agreement: Yes Rehab Potential: Fair Time/GCodes Start Time: 09:40 Stop Time: 10:00 Total Time Billed (hr/min): 20 Billed Treatment Time 1, CITALLLI BRIGGS OT Mar 28, 2020 10:34
--- OUTSIDE RECORDS SUMMARY | 2020-03-28 10:40 | XMS REPORT | Continuity of Care Document ---
Demographics Preferred Language Unknown Marital Status Unknown Confucianist Affiliation Unknown Race Unknown Ethnic Group Unknown Author Organization Unknown Address Unknown Phone Unavailable Allergies Active Description Code Type Severity Reaction Onset Reported/Identified Relationship to Patient Clinical Status Yes No Known Drug Allergies [id number] Drug Allergy Unknown N/A 03/24/2020 Medications There is no data. Problems Date Dx Coded Attending Type Code Diagnosis Diagnosed By 03/27/2020 VIANCA FRANCE MD, Ot F31. 9 BIPOLAR DISORDER, UNSPECIFIED 03/27/2020 VIANCA FRANCE MD Ot F89 UNSPECIFIED DISORDER OF PSYCHOLOGICAL DE 03/27/2020 VIANCA FRANCE MD, Ot G81. 94 HEMIPLEGIA, UNSPECIFIED AFFECTING LEFT N 03/27/2020 VIANCA FRANCE MD, Ot I63.511 CEREB INFRC D/T UNSP OCCLS OR STENOS OF 03/27/2020 VIANCA FRANCE MD Ot R29.724 NIHSS SCORE 24 03/27/2020 VIANCA FRANCE MD Ot R29.810 FACIAL WEAKNESS 03/27/2020 VIANCA FRANCE MD Ot R47. 02 DYSPHASIA 03/27/2020 VIANCA FRANCE MD Ot R47. 81 SLURRED SPEECH Procedures Code Description Performed By Per formed On [id number] DR CAT OF STOMACH WITH DRAINAGE DEVICE 03/24/2020 Results Test Result Range CYTOCHECK COVID-19 - 03/02/20 13:10 [id number] NOT DETECTED Not Detecte d Complete blood [...] urinalysis with reflex to culture YES NRG Bacterial urine culture - 03/24/20 13:24 Bacterial urine culture [id number] NRG COLONY COUNT >100,000/ML NRG SUSCEPTIBILITY SUSCEPTIBILITY REPROTED 03/26/20 10: 00 NRG RAPID ID PRELIM RAPID ID TEST AT [facility] 03/25 07:22 NRG ID CONFIRMATION RML CONFIRMED ID 03/25 16:05 NRG Dirithromycin susceptibility test by dis k diffusion - 03/24/20 13:24 Gentamicin susceptibility test by minimum inhibitory c oncentration <= NRG Trimethoprim/sulfamethoxazole susceptibi lity test by minimum inhibitoryconcentration <= NRG Levofloxacin susceptibility test by minimum inhibitory concentration <= NRG Ampicillin susceptibility test by minimum inhibitory c oncentration <= NRG Cefazolin susceptibility test by minimum inhibitory co ncentration <= NRG Ceftriaxone susceptibility test by minimum inhibitory concentration <= NRG Ciprofloxacin susceptibility test by minimum inhibitor y concentration <= NRG Meropenem susceptibility test by minimum inhibitory co ncentration <= NRG Nitrofurantoin susceptibility test by mi nimum inhibitory concentration <= NRG Amoxicillin and clavulanate potassium susc ROXANA <= NRG Methicillin resistant Staphylococcus aur eus (MRSA) screening culture - 03/24/20 15:00 Methicillin resistant Staphylococcus aureus (MRSA) scr eening culture NEG NRG Complete blood count (CBC) with automate d white blood cell (WBC) differential - 03/25/20 03:00 Blood leukocytes automated count (number/volume) 10.1 10*3/uL 4.3-11.0 Blood erythrocytes automated count (number/volume) 4.44 10*6/uL 4.35-5.85 Venous blood hemoglobin measurement (mass/volume) 12.9 g/dL 13.3-17.7 Blood hematocrit (volume fraction) 39 % 40-54 Automated erythrocyte mean corpuscular volume 88 [ foz_us] 80-99 Automated erythrocyte mean corpuscular h emoglobin (mass per erythrocyte) 29 pg 25-34 Automated erythrocyte mean corpuscular h emoglobin concentration measurement (mass/volume) 33 g/dL 32-36 Automated erythrocyte distribution width ratio 13. 0 % 10.0- 14.5 Automated blood platelet count (count/volume) 396 10*3/uL 130-400 Automated blood platelet mean volume measurement 10.4 [foz_us] 7.4-10.4 Automated blood neutrophils/100 leukocytes 82 % 42-75 Automated blood lymphocytes/100 leukocytes 13 % 12-44 Blood monocytes/100 leukocytes 5 % 0-12 Automated blood eosinophils/100 leukocytes 0 % 0-10 Automated blood basophils/100 leukocytes 0 % 0-10 Blood neutrophils automated count (number/volume) 8.3 10*3 1.8-7.8 Blood lymphocytes automated count (number/volume) 1.3 10*3 1.0-4.0 Blood monocytes automated count (number/volume) 0. 5 10*3 0.0-1.0 Automated eosinophil count 0.0 10*3/uL 0 .0-0.3 Automated blood basophil count (count/volume) 0.0 10*3/uL 0.0-0.1 Whole blood basic metabolic panel - 03/13 11/30 03:00 Serum or plasma sodium measurement (moles/volume) 141 mmol/L 135-145 Serum or plasma potassium measurement (moles/volume) 3.9 mmol/L 3.6-5.0 Serum or plasma chloride measurement (moles/volume) 107 mmol/L 98-107 Carbon dioxide 20 mmol/L 21-32 Serum or plasma anion gap determination (moles/volume) 14 mmol/L 5-14 Serum or plasma urea nitrogen measurement (mass/volume ) 19 mg/dL 7-18 Serum or plasma creatinine measurement (mass/volume) 0.79 mg/dL 0.60-1.30 Serum or plasma urea nitrogen/creatinine mass ratio 24 NRG Serum or plasma creatinine measurement w ith calculation of estimated glomerular filtration rate > NRG Serum or plasma glucose measurement (mass/volume) 133 mg/dL 70-105 Serum or plasma calcium measurement (mass/volume) 8.8 mg/dL 8.5-10.1 Serum or plasma phosphate measurement (m ass/volume) - 03/25/20 03:00 Serum or plasma phosphate measurement (mass/volume) 2.6 mg/dL 2.3-4.7 Magnesium - 03/25/20 03:00 Magnesium 2.2 mg/dL 1.6-2.4 Lipid 1996 panel - 03/25/20 03:00 Serum or plasma triglyceride measurement (mass/volume) 134 mg/dL <150 Serum or plasma cholesterol measurement (mass/volume) 160 mg/dL < 200 Serum or plasma cholesterol in HDL measurement (mass/v olume) 24 mg/dL 40-60 Cholesterol in LDL [mass/volume] in serum or plasma by direct assay 129 mg/dL 1-129 Serum or plasma cholesterol in VLDL measurement (mass/ volume) 27 mg/dL 5-40 COVID-19 IgG Only SO - 03/25/20 03:00 Coronavirus Ab [Units/volume] in Serum Positive Negative Complete blood count (CBC) with automate d white blood cell (WBC) differential - 03/26/20 03:20 Blood leukocytes automated count (number/volume) 11.4 10*3/uL 4.3-11.0 Blood erythrocytes automated count (number/volume) 4.30 10*6/uL 4.35-5.85 Venous blood hemoglobin measurement (mass/volume) 12.6 g/dL 13.3-17.7 Blood hematocrit (volume fraction) 38 % 40-54 Automated erythrocyte mean corpuscular volume 89 [ foz_us] 80-99 Automated erythrocyte mean corpuscular h emoglobin (mass per erythrocyte) 29 pg 25-34 Automated erythrocyte mean corpuscular h emoglobin concentration measurement (mass/volume) 33 g/dL 32-36 Automated erythrocyte distribution width ratio 12. 7 % 10.0- 14.5 Automated blood platelet count (count/volume) 304 10*3/uL 130-400 Automated blood platelet mean volume measurement 10.4 [foz_us] 7.4-10.4 Automated blood neutrophils/100 leukocytes 78 % 42-75 Automated blood lymphocytes/100 leukocytes 15 % 12-44 Blood monocytes/100 leukocytes 5 % 0-12 Automated blood eosinophils/100 leukocytes 1 % 0-10 Automated blood basophils/100 leukocytes 0 % 0-10 Blood neutrophils automated count (number/volume) 9.0 10*3 1.8-7.8 Blood lymphocytes automated count (number/volume) 1.7 10*3 1.0-4.0 Blood monocytes automated count (number/volume) 0. 6 10*3 0.0-1.0 Automated eosinophil count 0.1 10*3/uL 0 .0-0.3 Automated blood basophil count (count/volume) 0.0 10*3/uL 0.0-0.1 Whole blood basic metabolic panel - 03/13 12/31 03:20 Serum or plasma sodium measurement (moles/volume) 139 mmol/L 135-145 Serum or plasma potassium measurement (moles/volume) 4.1 mmol/L 3.6-5.0 Serum or plasma chloride measurement (moles/volume) 108 mmol/L 98-107 Carbon dioxide 21 mmol/L 21-32 Serum or plasma anion gap determination (moles/volume) 10 mmol/L 5-14 Serum or plasma urea nitrogen measurement (mass/volume ) 12 mg/dL 7-18 Serum or plasma creatinine measurement (mass/volume) 0.72 mg/dL 0.60-1.30 Serum or plasma urea nitrogen/creatinine mass ratio 17 NRG Serum or plasma creatinine measurement w ith calculation of estimated glomerular filtration rate > NRG Serum or plasma glucose measurement (mass/volume) 122 mg/dL 70-105 Serum or plasma calcium measurement (mass/volume) 8.6 mg/dL 8.5-10.1 Serum or plasma phosphate measurement (m ass/volume) - 03/26/20 03:20 Serum or plasma phosphate measurement (mass/volume) 2.5 mg/dL 2.3-4.7 Magnesium - 03/26/20 03:20 Magnesium 2.3 mg/dL 1.6-2.4 Serum or plasma lithium measurement (mol es/volume) - 03/26/20 09:45 BNP PT < 10.0 <100.0 PROCALCITONIN (PCT) - 03/26/20 09:45 PROCALCITONIN (PCT) 0.05 ng/mL <0.10 Capillary blood glucose measurement by g lucometer (mass/volume) - 03/26/20 20:41 Capillary blood glucose measurement by glucometer (mas s/volume) 114 mg/dL 70-110 Complete blood count (CBC) with automate d white blood cell (WBC) differential - 03/27/20 05:00 Blood leukocytes automated count (number/volume) 9.1 10*3/uL 4.3-11.0 Blood erythrocytes automated count (number/volume) 4.20 10*6/uL 4.35-5.85 Venous blood hemoglobin measurement (mass/volume) 12.1 g/dL 13.3-17.7 Blood hematocrit (volume fraction) 38 % 40-54 Automated erythrocyte mean corpuscular volume 90 [ foz_us] 80-99 Automated erythrocyte mean corpuscular h emoglobin (mass per erythrocyte) 29 pg 25-34 Automated erythrocyte mean corpuscular h emoglobin concentration measurement (mass/volume) 32 g/dL 32-36 Automated erythrocyte distribution width ratio 13. 0 % 10.0- 14.5 Automated blood platelet count (count/volume) 283 10*3/uL 130-400 Automated blood platelet mean volume measurement 10.5 [foz_us] 7.4-10.4 Automated blood neutrophils/100 leukocytes 75 % 42-75 Automated blood lymphocytes/100 leukocytes 18 % 12-44 Blood monocytes/100 leukocytes 6 % 0-12 Automated blood eosinophils/100 leukocytes 1 % 0-10 Automated blood basophils/100 leukocytes 0 % 0-10 Blood neutrophils automated count (number/volume) 6.8 10*3 1.8-7.8 Blood lymphocytes automated count (number/volume) 1.6 10*3 1.0-4.0 Blood monocytes automated count (number/volume) 0. 5 10*3 0.0-1.0 Automated eosinophil count 0.1 10*3/uL 0 .0-0.3 Automated blood basophil count (count/volume) 0.0 10*3/uL 0.0-0.1 Whole blood basic metabolic panel - 03/13 01/30 05:00 Serum or plasma sodium measurement (moles/volume) 141 mmol/L 135-145 Serum or plasma potassium measurement (moles/volume) 4.2 mmol/L 3.6-5.0 Serum or plasma chloride measurement (moles/volume) 108 mmol/L 98-107 Carbon dioxide 23 mmol/L 21-32 Serum or plasma anion gap determination (moles/volume) 10 mmol/L 5-14 Serum or plasma urea nitrogen measurement (mass/volume ) 14 mg/dL 7-18 Serum or plasma creatinine measurement (mass/volume) 0.76 mg/dL 0.60-1.30 Serum or plasma urea nitrogen/creatinine mass ratio 18 NRG Serum or plasma creatinine measurement w ith calculation of estimated glomerular filtration rate > NRG Serum or plasma glucose measurement (mass/volume) 113 mg/dL 70-105 Serum or plasma calcium measurement (mass/volume) 8.6 mg/dL 8.5-10.1 Serum or plasma phosphate measurement (m ass/volume) - 03/27/20 05:00 Serum or plasma phosphate measurement (mass/volume) 3.5 mg/dL 2.3-4.7 Magnesium - 03/27/20 05:00 Magnesium 2.3 mg/dL 1.6-2.4 Complete blood count (CBC) with automate d white blood cell (WBC) differential - 03/28/20 05:40 Blood leukocytes automated count (number/volume) 7.6 10*3/uL 4.3-11.0 Blood erythrocytes automated count (number/volume) 4.17 10*6/uL 4.35-5.85 Venous blood hemoglobin measurement (mass/volume) 12.2 g/dL 13.3-17.7 Blood hematocrit (volume fraction) 37 % 40-54 Automated erythrocyte mean corpuscular volume 90 [ foz_us] 80-99 Automated erythrocyte mean corpuscular h emoglobin (mass per erythrocyte) 29 pg 25-34 Automated erythrocyte mean corpuscular h emoglobin concentration measurement (mass/volume) 33 g/dL 32-36 Automated erythrocyte distribution width ratio 12. 6 % 10.0- 14.5 Automated blood platelet count (count/volume) 274 10*3/uL 130-400 Automated blood platelet mean volume measurement 10.6 [foz_us] 7.4-10.4 Automated blood neutrophils/100 leukocytes 70 % 42-75 Automated blood lymphocytes/100 leukocytes 21 % 12-44 Blood monocytes/100 leukocytes 6 % 0-12 Automated blood eosinophils/100 leukocytes 3 % 0-10 Automated blood basophils/100 leukocytes 0 % 0-10 Blood neutrophils automated count (number/volume) 5.3 10*3 1.8-7.8 Blood lymphocytes automated count (number/volume) 1.6 10*3 1.0-4.0 Blood monocytes automated count (number/volume) 0. 5 10*3 0.0-1.0 Automated eosinophil count 0.2 10*3/uL 0 .0-0.3 Automated blood basophil count (count/volume) 0.0 10*3/uL 0.0-0.1 Whole blood basic metabolic panel - 03/13 03/02 05:40 Serum or plasma sodium measurement (moles/volume) 141 mmol/L 135-145 Serum or plasma potassium measurement (moles/volume) 3.9 mmol/L 3.6-5.0 Serum or plasma chloride measurement (moles/volume) 107 mmol/L 98-107 Carbon dioxide 24 mmol/L 21-32 Serum or plasma anion gap determination (moles/volume) 10 mmol/L 5-14 Serum or plasma urea nitrogen measurement (mass/volume ) 18 mg/dL 7-18 Serum or plasma creatinine measurement (mass/volume) 0.75 mg/dL 0.60-1.30 Serum or plasma urea nitrogen/creatinine mass ratio 24 NRG Serum or plasma creatinine measurement w ith calculation of estimated glomerular filtration rate > NRG Serum or plasma glucose measurement (mass/volume) 105 mg/dL 70-105 Serum or plasma calcium measurement (mass/volume) 8.8 mg/dL 8.5-10.1 Serum or plasma phosphate measurement (m ass/volume) - 03/28/20 05:40 Serum or plasma phosphate measurement (mass/volume) 3.8 mg/dL 2.3-4.7 Magnesium - 03/28/20 05:40 Magnesium 2.2 mg/dL 1.6-2.4 Encounters ACCT No. Visit Date/Time Discharge Status Pt. Type Provider Facility Loc./Unit Complaint [id number] 03/03/2020 07:09:45 Document Registration [id number] 03/02/2020 13:56:00 03/02/2020 23:59: 59 CLS Outpatient Yamileth Pederson [id number] 03/24/2020 13:05:[address] Inpatient EDILMA RODRIGUEZ, VIANCA Coon [facility] 4TH ACUTE CVA WITH L SIDE PARALY SIS NEGLECT
[2020-03-28] MEDS ORDERED: SERT50TA9 PO (10:45)
--- NOTE | 2020-03-28 10:45 | NUR ---
I ENTERED THE MED REC WHEN THE PT WAS IN ICU ON 03-25-2020 I HAVE REVIEWED THE MEDICATION FOR CONTINUATION WHEN THE PT WAS ON [address] WILKERSON ORDERED SERTRALINE 50MG (1 TAB HS) BUT THE PT WAS TRANSFERRED TO [facility] BEFORE HE WAS ABLE TO START THIS. [facility] CONTACTED ME AND WANTED SERTRALINE 50MG ADDED TO THE MED REC SO IT CAN BE ORDERED, THEREFORE I HAVE ADDED THE MED EVEN THOUGH HE HAS NOT STARTED. AFTER THE MEDS ARE CONTINUED I WILL REMOVE/CHANGE THE MED REC IF NEEDED Addendum: 03/28/20 at 1359 by PONCHO JEAN CPhT I HAVE REMOVED SERTRALINE 50MG FROM THE MED REC FOR DISCHARGE PURPOSES
--- NOTE | 2020-03-28 10:59 | PM&R Post Admission Assessment ---
PM&R HP Date of Visit: Mar 28, 2020 Time of Visit: 10:00 History of Present Illness CC: CVA catastrophic HPI: This is a 50yoWM who has not seen a doctor in 20 years who has a h/o bipolar disorder and autism spectrum disorder who has been disabled for many years who presented to the ER with stroke symptoms on 03/24/20. Apparently he went to bed the night before and at 0100 awoke to go to the bathroom and noted that his left leg was not functioning normally so he laid back down and his awoke and found patient in that condition so EMS was activated. Patient was not a tPA candidate due to length of time of last well time. Patient remains with a catheter due to urinary retention so Dr Drake consulted. BM+ yesterday. CBD oil initiated per home dosing since that help his moods and emotional well being and his will bring it to the hospital. Patient was independent of all ADL's at home PLOF. Medical student note: History: Mr. Wei is a 50 year old male who presented in the ER 03/24 due to left sided weakness. He states he got up to go to the bathroom at 0100 on 03/24 and his left leg wouldn't work. Later his found him with this deficit and called EMS. On arrival he had a NIH of 24. He had left sided paralysis and with neglect and fixed gaze. His works at [employer] and was positive for COVID19 1 month ago. Patient tested negative at that time via PCR. He has had no COVID symptoms and his remained asymptomatic the whole time and has been off quarantine for 2 weeks. MRI 04/02 reported suspected large right acute MCA territory infarct with no hemorrhage. Reported to hospitalist he had not seen a physician in about 20 years, has a medical history of HTN, bipolar disorder, developmental disorder. Neuro Exam: During the exam he was alert and oriented x3, had difficulty with focus and with following instructions at times. Cranial Nerves: - II - pupils equal and reactive to light bilaterally. - III/IV/ - extra occular movements intact bilaterally, more hesitation with gaze to R, some difficulty with focus - V - no sensation loss of trigeminal distribution - VII - L sided facial droop and weakness when asked to smile and frown. Able to resist eye opening bilaterally, however less strength noted with L eye closing. - VIII - no hearing loss reported - IX, X - palate elevates symmetrically - XI - 3+ turning head to L, 5+ to R. 0+ L shoulder shrug, 5+ R shoulder shrug. - XII - tongue midline, able to protrude, no atrophy Motor: - Deltoid - was not able to follow requested instructions, showed active abduction on R, no motion on L - Biceps - 5+ on R, 0+ on L - Triceps - 5+ on R, 0+ on L - Wrist Flexion - 5+ on R, 0+ on L - Wrist Extension - 5+ on R, 0+ on L - Hip Flexion - able to hold leg elevated for several seconds on R, unable to hold elevated on L - Knee flexion - 5+ on R, 0+ on L - Knee extension - 5+ on R, 0+ on L - Ankle flexion - 5+ on R, 0+ on L - Ankle extension - 5+ on R, 0+ on L Reflexes: 2+ bicep reflex bilaterally, 2+ patellar reflex. Sensation: Reported no sensation in LLE, full sensation in RLE, RUE, and LUE. Describes shooting pains in his back that shoots down in L arm. Coordination: Able to perform vxrptt-jd-mefg test with R hand VIRGIL PERRY MED STUDENT Past Lnnqyam-Lbsnfs-Flvslx Hx Past Med/Social Hx: Reviewed Nursing Past Med/Soc Hx, Reviewed and Corrections made Patient Social History Marrital Status: Employed/Student: unemployed Alcohol Use: Denies Use Smoking Status: Current Everyday Smoker Past Medical History Cardiac: Hypertension Neurological: Developmental Disorder Psychosocial: Bipolar History of Blood Disorders: No Adverse Reaction to Blood Gayle: No Family History No Pertinent Family Hx Self Care: Independent Functional Cognition: Unknown Occupation: Pt. states that he does not work Drive Self: Yes Eatin Oral Hygiene: 7 Shower/Bathe Self: 7 Upper Body Dressin Lower Body Dressin On/Off Footwear: 1 Toileting Hygiene: 88 PM&R Allergy/Meds/Data Review Allergies Coded Allergies: No Known Drug Allergies (Unverified , 03/24/20) Home Medications Scheduled Cranberry (Cranberry), 400 MG PO DAILY, (Reported) Garlic (Garlic), 500 MG PO DAILY, (Reported) Milk Thistle Seed Extract (Milk Thistle), 175 MG PO DAILY, (Reported) Turmeric/Turmeric Root Extract (Turmeric 500 mg Capsule), 1 EACH PO DAILY, (Reported) [cbd], 1 DROP SL DAILY, (Reported) Scheduled PRN Dextromethorphn/Acetaminoph/Cp (Vicks Nyquil Cold & Flu Liquid), 15-30 ML PO Q8H PRN for COUGH, (Reported) Omeprazole (Omeprazole), 20 MG PO DAILY PRN for HEARTBURN, (Reported) Discontinued Medications Garlic (Garlic), 1 EACH PO, (Reported) Discontinued Reason: Prescription changed Current Medications Current Medications Reviewed Review of Systems Constitutional: see HPI, malaise, weakness EENTM: no symptoms reported Respiratory: no symptoms reported Cardiovascular: no symptoms reported Gastrointestinal: no symptoms reported Genitourinary: other (retention) Musculoskeletal: back pain Skin: no symptoms reported Psychiatric/Neurological: Anxiety, Depressed, Weakness All Other Systems Reviewed Negative Unless Noted: Yes Physical Exam Physical Exam Vital Signs Capillary Refill : Height, Weight, BMI Height: '" Weight: lbs. oz. kg; 33.70 BMI Method: General Appearance: No Apparent Distress, WD/WN, Chronically ill Eyes: Bilateral Eye Normal Inspection, Bilateral Eye PERRL HEENT: PERRL/EOMI, Normal ENT Inspection, Pharynx Normal Neck: Full Range of Motion, Normal Inspection, Non Tender, Supple, Carotid Bruit Respiratory: Chest Non Tender, Lungs Clear, Normal Breath Sounds, No Accessory Muscle Use, No Respiratory Distress Cardiovascular: Regular Rate, Rhythm, No Edema, No Gallop, No JVD, No Murmur, Normal Peripheral Pulses Gastrointestinal: Normal Bowel Sounds, No Organomegaly, No Pulsatile Mass, Non Tender, Soft Back: Normal Inspection, No CVA Tenderness, No Vertebral Tenderness Extremity: Normal Capillary Refill, Normal Inspection, Normal Range of Motion (except left side), Non Tender, No Calf Tenderness, No Pedal Edema Neurologic/Psychiatric: Alert, Oriented x3, No Motor/Sensory Deficits, Normal Mood/Affect, Depressed Affect, Facial Droop (left), Motor Weakness (left sided paresis 0/5 flaccid) Skin: Normal Color, Warm/Dry Lymphatic: No Adenopathy PM&R Medical Assessment & Plan REHAB/MEDICAL ASSESSMENT AND PLAN: REHAB IMPAIRMENT GROUP: CVA ETIOLOGIC DIAGNOSIS: CVA The comorbidities that impact the patients function and/or functional outcome by: autism spectrum disorder at baseline, catastrophic CVA with left sided flaccidity, bipolar REHAB PLAN: The patient is being admitted to our comprehensive inpatient rehabilitation facility and can tolerate the intensity of service consisting of at least: 180 minutes of therapy a day, 5 out of 7 days a week Rehab treatment will consist of: PT OT ST will all focus to improve patient's independence in ADL's with the use of assistive devices and help improve ambulation and transfers The patient/family has a good understanding of our discharge process and will benefit from an interdisciplinary inpatient rehabilitation program. The patient has potential to make improvement and is in need of at least two of the following multidisciplinary therapies including but not limited to physical, occupational, speech, and prosthetics and orthotics. Additionally the patient will need services from respiratory, nutritional services, wound care, psychology, etc. (Customize this to each patient). Given the patients complex condition and risk of further medical complications, rehabilitation services cannot be safely or effectively provided at a lower level of care such as a [place] [facility] facility. BARRIERS TO DISCHARGE: Catastrophic CVA with left sided flaccidity ESTIMATED LOS: 21 days DISPOSITION: Home RELEVANT CHANGES SINCE PREADMISSION SCREENING: I have compared the patients medical and functional status at the time of the preadmission screening and there are: no changes PROGNOSIS: Fair REHABILITATION GOALS: 1. PT OT ST will all focus to improve patient's independence in ADL's with the use of assistive devices and help improve ambulation and transfers All the above goals were reviewed with the patient and he/she is in agreement. By signing this document, I acknowledge that I have personally performed a full physical examination on this patient within 24 hours of admission to this inpatient rehabilitation facility and have determined the patient to be able to tolerate the above course of treatment at an intensive level for a reasonable period of time. I will be completing a detailed individualized Plan of Care for this patient by day #4 of the patients stay based upon the Preadmission Screen, the Post-Admission Evaluation, and the therapy evaluations. Admission Dx/Comorbidities: (1) Acute right MCA stroke Status: Acute ICD Codes: I63.511 - Cerebral infarction due to unspecified occlusion or stenosis of right middle cerebral artery (2) Facial droop due to cerebrovascular accident (CVA) (3) Bipolar disorder ICD Codes: F31.9 - Bipolar disorder, unspecified (4) Autism spectrum ICD Codes: F84.0 - Autistic disorder (5) Urinary retention ICD Codes: R33.9 - Retention of urine, unspecified (6) Pickett catheter in place ICD Codes: Z96.0 - Presence of urogenital implants (7) Coronavirus infection, unspecified Status: Chronic ICD Codes: B34.2 - Coronavirus infection, unspecified (8) 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
[2020-03-28] MEDS ORDERED: PIPERACILLIN/TAZOBACTAM (BULK) 4.5 GM in NS (IVPB) 100 ML IV SCH (11:00)
[2020-03-28] MEDS: PATCH REMOVAL TP SCH (11:00)
[2020-03-28] MEDS ORDERED: ONDANSETRON 4 MG/2 ML (SDV) Z0FRAN IVP PRN (11:00)
[2020-03-28] MEDS ORDERED: ARTIFICAL TEARS 0.4 ML UNIT DOSE (REFRESH PLUS) OU PRN (11:00)
[2020-03-28] MEDS ORDERED: hydrALAZINE (APESOLINE) 20 MG/ML VIAL IV PRN (11:00)
[2020-03-28] MEDS ORDERED: CATHETER FLUSH 10 ML SYR IV PRN (11:00)
--- NOTE | 2020-03-28 11:16 | Physical Therapy Evaluation ---
PT Evaluation-General Medical Diagnosis Admission Date Mar 28, 2020 at 09:40 Medical Diagnosis: CVA with left sided weakness Onset Date: Mar 24, 2020 Therapy Diagnosis Therapy Diagnosis: impaired mobility, strength, endurance, pushers syndrome, left hemiparesis Referral Physician: Dr. Hyman Reason for Referral: Evaluation/Treatment Medical History Pertinent Medical History: HTN Reviewed History: Yes Social History Home: Single Level Current Living Status: Spouse (and 17 year old daughter) Entry Into Home: Stairs Without Railing PT Steps Into Home: 4 Prior Prior Level of Function SCALE: Activities may be completed with or without assistive devices. 8-Qyqqbeajrv-drhrvzo completes the activity by him/herself with no assistance from a helper. 5-Set-up or Clean-up Assistance-helper sets up or cleans up; patient completes activity. [place] assists only prior to or following the activity. 4-Supervision or Touching Assistance-helper provides verbal cues and/or touching/steadying and/or contact guard assistance as patient completes activity. Assistance may be provided throughout the activity or intermittently. 3-Partial/Moderate Assistance-helper does LESS THAN HALF the effort. [place] lifts, holds or supports trunk or limbs, but provides less than half the effort. 2-Substantial/Maximal Assistance-helper does MORE THAN HALF the effort. [place] lifts or holds trunk or limbs and provides more than half the effort. 3-Hdcupexgg-eudmrq does ALL the effort. Patient does none of the effort to complete the activity. Or, the assistance of 2 or more helpers is required for the patient to complete the activity. If activity was not attempted, code reason: 7-Patient Refused. 9-Not Applicable-not attempted and the patient did not perform the activity before the current illness, exacerbation or injury. 10-Not Attempted due to Environmental Limitations-(lack of equipment, weather restraints, etc.). 88-Not Attempted due to Medical Conditions or Safety Concerns. Bed Mobility: 6 Transfers (B,C,W/C): 6 Gait: 6 Stairs: 6 Indoor Mobility (Ambulation): Independent Stairs: Independent PT Evaluation-Current Subjective Patient in WC pre tx, agrees to PT, has 8/10 pain in his bottom, will be co- treating with OT after evaluation due to poor patient mobility, strength, endurance, left hemiparesis, poor sitting and standing balance, pusher's syndrome, the need to coordinate UE and LE during activity. Pt/Family Goals to be independent at home. Objective Patient Orientation: Person, Place, Situation Attachments: Pickett Catheter ROM/Strength ROM Lower Extremities WNL Strength Lower Extremities RLE 5/5, LLE 0/5 Neuromuscular (Tone, Coordination, Reflexes) Patient has some left neglect and impaired peripheral vision. Sensory Vision: Hearing: Functional Sensation Right Lower Extremit: Intact Sensation Left Lower Extremity: Intact Transfers Roll Left to Right (QC): 2 Sit to Lying (QC): 1 Lying to Sitting/Side of Bed(Q: 1 Sit to Stand (QC): 1 Chair/Qqs-no-Fdrtn Xfer(QC): 1 Toilet Transfer (QC): 1 Car Transfer (QC): 1 Patient performs bed mobility with max assist, supine <-> sit with dependence, dependent for sit <-> stand and transfers, dependent for car transfer. Patient can assist a little with rolling using his right arm, he uses a sit to stand machine for transfers and toilet transfer. He also stood in the parallel bars x4 for about 1-2 minutes each time but with assist of 3 people. Patient was transferred to shower chair, taken to his room and into the shower, undressed, showered, transferred to bed. Patient needs max assist to maintain sitting balance during shower. Gait Does the Patient Walk?: No and Walking Goal NOT indicated Walk 10 feet (QC): 88 Walk 50 ft with 2 Turns(QC): 88 Walk 150 ft (QC): 88 Walking 10ft/uneven surface-QC: 88 Comments/Gait Description patient is nonambulatory at this time Wheelchair Training Does the Pt Use a Wheelchair?: Yes Distance: 150' Wheel 50 ft with 2 turns (QC): 2 Wheel 150 ft (QC): 2 Type of Wheelchair: Manual Patient is able to help propel and turn WC using right leg, he is reluctant to use right arm to propel. Stairs 1 Step (curb) (QC): 88 4 Steps (QC): 88 12 Steps (QC): 88 Patient is non-ambulatory Balance Sitting Static: Poor Sitting Dynamic: Poor Standing Static: Poor Standing Dynamic: Poor Picking up an Object (QC): 88 Treatment LLE PROM/stretching in all planes. PT performed LE ROM, WC mobility, bed mobility and transfers, sitting balance during dressing and bathing, standing in parallel bars, OT worked on bathing and dressing, assist with standing and transfers, UE positioning and safety during activity. Assessment/Needs Patient has impaired mobility, strength, endurance, balance (standing and sitting), has pushers syndrome, leans heavily to the left side. Patient uses a sit to stand machine for transfers. Patient in bed post tx with nurse call, phone, tray, all needs met. Rehab Potential: Poor PT Short Term Goals Short Term Goals Time Frame: Apr 04, 2020 Roll Left & Right: 3 Sit to lyin Lying to sitting on side of be: 3 Sit to stand: 3 Chair/uib-fp-oguzm transfer: 2 PT Chief Catalyst Operator Goals Long-Term Goals PT Chief Catalyst Operator Goals Time Frame: Apr 18, 2020 Roll Left & Right (QC): 3 (Pablo) Sit to Lying (QC): 3 (Pablo) Lying-Sitting on Side/Bed(QC): 3 (Pablo) Sit to Stand (QC): 3 (Pablo) Chair/Cdo-pw-Vrdea Xfer(QC): 3 (Pablo) Toilet Transfer (QC): 3 (Pablo) Car Transfer (QC): 3 (mod A) Does the Patient Walk: No and Walking Goal NOT indicated Walk 10 feet (QC): 88 Walk 50ft with 2 Turns (QC): 88 Walk 150 ft (QC): 88 Walking 10ft on Uneven Surface: 88 1 Step (curb) (QC): 88 4 Steps (QC): 88 12 Steps (QC): 88 Picking up an Object (QC): 88 Does the Pt use WC or Scooter?: Yes Wheel 50 feet with 2 turns (QC: 3 (Pablo) Type: Manual Wheel 150 feet: 3 (Pablo) Type: Manual PT Plan Problem List Problem List: Activity Tolerance, Functional Strength, Safety, Balance, Gait, Transfer, Bed Mobility, ROM Treatment/Plan Treatment Plan: Continue Plan of Care Treatment Plan: Bed Mobility, Education, Functional Activity [place], Functional Strength, Group Therapy, Gait, Safety, Therapeutic Exercise, Transfers Treatment Duration: Apr 18, 2020 Frequency: At least 5 of 7 days/Wk (IRF) Estimated Hrs Per Day: 1.5 hours per day Patient and/or Family Agrees t: Yes Safety Risks/Education Patient Education: Transfer Techniques, Correct Positioning, W/C Management, Safety Issues Teaching Recipient: Patient Teaching Methods: Demonstration, Discussion Response to Teaching: Reinforcement Needed Discharge Recommendations Plan Patient will perform bed mobility and transfer training, balance and endurance training, functional strengthening, gait training, WC mobility training, and education, to improve functional mobility and independence at home. Therapy Discharge Recommendati: Other, See Comments (NH), Home & Family Time/GCodes Time In: 1000 Time Out: 1110 Total Billed Treatment Time: 70 Total Billed Treatment EVM 10' FA 60' Co-treated with OT for 60'. OT eval from [id number], PT eval from [id number], co- treat from [id number] MARK RYAN PT Mar 28, 2020 11:16
--- NOTE | 2020-03-28 11:44 | Occupational Ther Daily Note ---
OT Current Status-Daily Note Subjective Pt alert, sitting in w/c in gym. Pt agrees to therapy. No c/o pain at this time. Mental Status/Objective Patient Orientation: Person, Place, Time, Situation Attachments: IV ADL-Treatment OT/PT co-treat, skills of 2 clinicians required due to pt's medical complexity, dependent transfers, decreased movement, dependent with L UE movement. PT working in standing, sitting balance during functional tasks, strengthening and transfers. OT working on ADLs, L UE placement/positioning during standing/transfers, strengthening. Assist x3 to stand while shower chair with cutout positioned behind pt. Pt able to wash face, chest, abdomen and audrey area sitting on shower chair with cutout. Assist x2 for pt to sit upright on shower chair while taking shower. Dressing not addressed during this session. Pt uses sit to stand for transfer to bed. Assist x2 for bed mobility. After session, pt lying in bed with call light/phone in reach. All needs met in room. Reported to [facility] that pt would like to talk to electronics technician apprentice. Therapy Code Descriptions/Definitions Functional [place] Measure: 0=Not Assessed/NA 4=Minimal Assistance 1=Total Assistance 5=Supervision or Setup 2=Maximal Assistance 6=Modified [place] 3=Moderate Assistance 7=Complete IndependenceSCALE: Activities may be completed with or without assistive devices. 3-Xdcbsjfcbv-kynbjwv completes the activity by him/herself with no assistance from a helper. 5-Set-up or Clean-up Assistance-helper sets up or cleans up; patient completes activity. [place] assists only prior to or following the activity. 4-Supervision or Touching Assistance-helper provides verbal cues and/or touching/steadying and/or contact guard assistance as patient completes activity. Assistance may be provided throughout the activity or intermittently. 3-Partial/Moderate Assistance-helper does LESS THAN HALF the effort. [place] lifts, holds or supports trunk or limbs, but provides less than half the effort. 2-Substantial/Maximal Assistance-helper does MORE THAN HALF the effort. [place] lifts or holds trunk or limbs and provides more than half the effort. 4-Ayfzdfgwq-tjuqxr does ALL the effort. Patient does none of the effort to complete the activity. Or, the assistance of 2 or more helpers is required for the patient to complete the activity. If activity was not attempted, code reason: 7-Patient Refused. 9-Not Applicable-not attempted and the patient did not perform the activity before the current illness, exacerbation or injury. 10-Not Attempted due to Environmental Limitations-(lack of equipment, weather restraints, etc.). 88-Not Attempted due to Medical Conditions or Safety Concerns. Bathing Location: Chest, Abdomen, Perineal Area Shower/Bathe Self (QC): 1 (Assist x2 for safety during sitting due to pt's decreased sitting balance.) Other Treatment Pt initially required 4 person assist to stand at parallel bars then pt improved with each stand, see PT notes for progress. OT assisted with L UE and L LE placement at parallel bars. OT Short Term Goals Short Term Goals Time Frame: Apr 11, 2020 Eatin Oral hygiene: 3 Toileting hygiene: 3 Shower/bathe self: 2 Upper body dressin Lower body dressin Putting on/taking off footwear: 2 OT Fpc Goals Automobile Service Station Manager Goals Time Frame: Apr 25, 2020 Eating (QC): 4 Oral Hygiene (QC): 4 Toileting Hygiene (QC): 3 Shower/Bathe Self (QC): 3 Upper Body Dressing (QC): 4 Lower Body Dressing (QC): 4 On/Off Footwear (QC): 4 Additional Goals: 1-Demonstrate ADL Tasks, 2-Verbalize Understanding, 3- ImproveStrength/[place] 1=Demonstrate adherence to instructed precautions during ADL tasks. 2=Patient will verbalize/demonstrate understanding of assistive devices/modifications for ADL. 3=Patient will improve strength/tolerance for activity to enable patient to perform ADL's. OT Education/Plan Problem List/Assessment Assessment: Decreased Activ Tolerance, Decreased Safety Aware, Decreased UE Strength, Dependent Transfers, Impaired Bed Mobility, Impaired Coordination, Impaired Funct Balance, Impaired I ADL's, Impaired Self-Care Skills, Restricted Funct UE ROM, Visual-Perceptual Deficit (L neglect) Discharge Recommendations Plan/Recommendations: Continue POC Treatment Plan/Plan of Care Patient would benefit from OT for education, treatment and training to promote independence in ADL's, mobility, safety and/or upper extremity function for ADL's. Plan of Care: ADL Retraining, Functional Mobility, UE Funct Exercise/Act, UE Neuromus Re-Ed/Coord, Visual/Perceptual Retrain Treatment Duration: Apr 25, 2020 Frequency: At least 5 of 7 days/Wk (IRF) Estimated Hrs Per Day: 1.5 hours per day Agreement: Yes Rehab Potential: Poor Time/GCodes Start Time: 10:10 Stop Time: 11:10 Total Time Billed (hr/min): 60 Billed Treatment Time 1 visit-NM 2 (25 min) ADL 2 (35 min) co-treat with PT 60 min ([id number]) JOSIAH ESCALANTE Mar 28, 2020 11:44
--- NOTE | 2020-03-28 12:39 | Progress Note ---
VIRGIL PERRY MED STUDENT 03/28/20 1239: Progress Note Neuro H&P: History: Mr. Wei is a 50 year old male who presented in the ER 03/24 due to left sided weakness. He states he got up to go to the bathroom at 0100 on 03/24 and his left leg wouldn't work. Later his found him with this deficit and called EMS. On arrival he had a NIH of 24. He had left sided paralysis and with neglect and fixed gaze. His works at [employer] and was positive for COVID19 1 month ago. Patient tested negative at that time via PCR. He has had no COVID symptoms and his remained asymptomatic the whole time and has been off quarantine for 2 weeks. MRI 04/02 reported suspected large right acute MCA territory infarct with no hemorrhage. Reported to hospitalist he had not seen a physician in about 20 years, has a medical history of HTN, bipolar disorder, developmental disorder. Neuro Exam: During the exam he was alert and oriented x3, had difficulty with focus and with following instructions at times. Cranial Nerves: - II - pupils equal and reactive to light bilaterally. - III/IV/ - extra occular movements intact bilaterally, more hesitation with gaze to R, some difficulty with focus - V - no sensation loss of trigeminal distribution - VII - L sided facial droop and weakness when asked to smile and frown. Able to resist eye opening bilaterally, however less strength noted with L eye closing. - VIII - no hearing loss reported - IX, X - palate elevates symmetrically - XI - 3+ turning head to L, 5+ to R. 0+ L shoulder shrug, 5+ R shoulder shrug. - XII - tongue midline, able to protrude, no atrophy Motor: - Deltoid - was not able to follow requested instructions, showed active abduction on R, no motion on L - Biceps - 5+ on R, 0+ on L - Triceps - 5+ on R, 0+ on L - Wrist Flexion - 5+ on R, 0+ on L - Wrist Extension - 5+ on R, 0+ on L - Hip Flexion - able to hold leg elevated for several seconds on R, unable to hold elevated on L - Knee flexion - 5+ on R, 0+ on L - Knee extension - 5+ on R, 0+ on L - Ankle flexion - 5+ on R, 0+ on L - Ankle extension - 5+ on R, 0+ on L Reflexes: 2+ bicep reflex bilaterally, 2+ patellar reflex. Sensation: Reported no sensation in LLE, full sensation in RLE, RUE, and LUE. Describes shooting pains in his back that shoots down in L arm. Coordination: Able to perform [id number] test with R hand KIARA GATICA DO 03/28/202102: Supervisory-Addendum Brief Verification & Attestation Participated in pt care: history, MDM, physical Personally performed: exam, history, MDM, supervision of care Care discussed with: Medical Student Procedures: n/a Results interpretation: Verified all documentation Verification and Attestation of Medical Student E/M Service A medical student performed and documented this service in my presence. I reviewed and verified all information documented by the medical student and made modifications to such information, when appropriate. I personally performed the physical exam and medical decision making. Kiara Gatica, Mar 28, 2020,21:03 VIRGIL PERRY MED STUDENT Mar 28, 2020 12:39 KIARA GATICA DO Mar 28, 2020 21:03
--- NOTE | 2020-03-28 12:50 | NUR ---
I received a referral in reference to the pts father having this AM, I contacted pt and his , offered support and prayer.
--- NOTE | 2020-03-28 13:46 | ST Cognitive Linguistic Eval ---
Speech Evaluation-General Medical Diagnosis CVA with left sided weakness Onset Date: Mar 24, 2020 Therapy Diagnosis Therapy Diagnosis: Cognitive-communication Referral Referring Physician: Dr. Hyman Medical History Pertinent Medical History: HTN Reviewed History: Yes Social History Current Living Status: Spouse (and 17 year old daughter) Speech PLF-Current Status Prior Level of Function Patient lived at home with his and 17 y/o daughter where he was independent for his daily needs. Subjective Patient was cooperative with the cognitive assessment. Language Eval: Auditory Comprehends Simple Yes/No Ques: Functional Indent/Objects Multiple Mejia: Functional Ident/Pics in Multiple Mejia: Functional Follows 1-Step Commands: Functional Follows Complex Directions: Mild Follows General Conversations: Functional Language Eval: Verbal Language Completes Spontaneous Greeting: Functional Produces Auto, Serial Info: Functional Imitates Simple Words/Phrases: Functional Word Finding: Mild Requests Basic Needs: Functional States Basic Personal Info: Functional Expresses Complex Ideas: Mild Patient requires extra response time occasionally. Objective Cognitive Domain Attention: WNL Memory: Mild Problem Solving: Mild Executive Functions: Mild Visuospatial Skills: WNL Composite Severity Rating: Mild Clock Drawing Severity Rating: Moderate Objective Formal/Standardized Tests [facility] Mental Status ([facility]) Results 18/30, moderate dementia range of function, however his deficits were enhanced by the decreased response time and lethargic state Oral Motor/Speech Production Patient's speech is at 80% intelligibility, speech appears to be improving as his deficits improve Impression Patient is a 50 y/o male who was admitted to the ARU s/p CVA. Patient was evaluated at bedside with the [facility] with a score of 18/30 obtained. This score is within the moderate dementia range of function. This score appears to be less than what his actual abilities are due to patient being lethargic and requiring increased response time. Patient will be reassessed at a later date following a few days of therapy. Patient will receive skilled ST to improve deficits for a safe return home. Speech Patient Assess Expression of Ideas/Wants: Exhibits (3) Understanding Verbal Content: Usually Understands (3) Brief Interview-Mental Status: Yes Repetition of Three Words: Three (3) Temporal Orientation: Year: Correct (3) Temporal Orientation: Month: Accurate within 5 days(2) Temporal Orientation: Day: Correct (1) Recall : Wear to say "Sock": Yes,after cueing (1) Recall : Color: No, could not recall (0) Recall : Bed: Yes,after cueing (1) Memory/Recall Ability: Current season, That he or she is in a hsp/hsp unit Speech Short Term Goals Short Term Goals Short Term Goals 1) Patient will complete memory tasks related to his daily needs at 90% or greater with minimal cues. 2) Patient will complete safety awareness tasks related to his daily needs at 90% or greater with minimal cues. 3) Patient will complete problem solving tasks related to his daily needs at 90% or greater with minimal cues. Speech Filemaker Developer Goals Filemaker Developer Goals Patient will improve cognitive-communication necessary for safety and daily living tasks with minimal assist. Speech-Plan Patient/Family Goals Patient/Family Goals: Patient plans on returning to his home with his upon discharge. Treatment Plan Speech Therapy Treatment Plan: Continue Plan of Care Treatment Duration: Apr 05, 2020 Frequency: 5 times per week Estimated Hrs Per Day: .5 hour per day Rehab Potential: Good Barriers to Learning: Patient's recent CVA Pt/Family Agrees to Plan: Yes Safety Risks/Education Teaching Recipient: Patient, Significant Other Teaching Methods: Discussion Response to Teaching: Verbalize Understanding Education Topics Provided: Safety within his room and communication of wants/needs Time Speech Therapy Time In: 12:45 Speech Therapy Time Out: 13:15 Total Billed Time: 30 Billed Treatment Time 1VILMA BETHAN[address] ST Mar 28, 2020 13:46
[2020-03-28 13:51] VITALS: BP 125/67
--- NOTE | 2020-03-28 13:55 | ST Dysphagia Evaluation ---
Speech Evaluation-General Medical Diagnosis CVA with left sided weakness Onset Date: Mar 24, 2020 Therapy Diagnosis Therapy Diagnosis: Oropharyngeal Dysphagia Precautions Precautions: Aspiration Referral Referring Physician: Dr. Hyman Medical History Pertinent Medical History: HTN Reviewed History: Yes Social History Current Living Status: Spouse (and 17 year old daughter) Speech PLF/Current-Dysphagia Prior Level of Function Patient lived at home with his and 17 y/o daughter. Patient states he ate whatever he wanted prior to his CVA. Subjective Patient was pleasant with the Bedside Dysphagia Evaluation. Cognitive Status Patient Orientation: Person, Place, Eyes Open, Situation Oral Motor Skills Dentition: Natural, Tumbled, Stained Current Food Consistancy: Dysphagia Soft, Thin Liquids Ability to Follow Directions: Good Oral Expression Ability: Mild Impairment Speech is decreased in intelligibility due to decreased OM control. Voice Voice Phonatory-Based Quality: Breathy, Weak Voice Pitch: Normal Voice Loudness: Mildly Soft/Quiet Face Facial Symmetry: Asymmetrical Oral-Facial Assessment Oral-Facial Dentition: Normal Smile: Droops Left Puff Cheeks: Reduced Strength Lingual Protrusion: Abnormal Lingual ROM: Abnormal Lingual Strength: Abnormal Pharynx Velopharyngeal Move.: Weak on Left Volitional Dry Swallow: Yes Voluntary Cough: Yes Can Clear Throat Volitionally: Yes Dysphagia Evaluation Consistencies Presented: Thin Liquid, Mechanical Soft, Pureed Oral Phase: Oral Residue Oral phase is grossly within normal range of function for presented consistencies. Mild residue noted post solids, however he was able to clear with a sip of liquid. Pharyngeal phase is within normal range for consistencies presented. Swallowing Precautions: Alternate Liquids/Solids, Double Swallow, Decreased Bolus 1/2 Tsp, Liquids from Straw, Small Bites and Sips, Sitting Upright 90 Degrees, Sitting 90 Degrees 30 Post Intake, Left Tongue Sweep Dysphagia Evaluation Summary Patient was evaluated for safe oral intake due to recent CVA. Patient has had decreased OM function primarily on the left side since the CVA. His function has improved over the past two days. He was given trials of thin liquids and puree & mechanical soft textures. He does not exhibit s/s of aspiration with the current diet level of Dysphagia II with thin. He has received training for safe oral intake strategies as well as his . Patient to continue on current diet level with more edu/training to be incorporated. Barriers to Learning Patient's new onset CVA Speech Short Term Goals Short Term Goals Short Term Goals 1) Patient will complete memory tasks related to his daily needs at 90% or greater with minimal cues. 2) Patient will complete safety awareness tasks related to his daily needs at 90% or greater with minimal cues. 3) Patient will complete problem solving tasks related to his daily needs at 90% or greater with minimal cues. 4) Patient will tolerate least restrictive diet level without s/s of aspiration at 90% or greater. 5) Patient/caregiver will utilize compensatory strategies as trained at 90% or greater with minimal cues. Speech Halfway Goals Halfway Goals Patient will improve cognitive-communication necessary for safety and daily living tasks with minimal assist. Patient will maintain adequate nutrition/hydration via safe effective swallow function. Speech-Plan Patient/Family Goals Patient/Family Goals: Patient planss on returning to his home where he lives with his and 17 y/o daughter. Treatment Plan Speech Therapy Treatment Plan: Continue Plan of Care Treatment Duration: Apr 05, 2020 Frequency: 5 times per week Estimated Hrs Per Day: .5 hour per day Rehab Potential: Good Barriers to Learning: Patient's new onset CVA Pt/Family Agrees to Plan: Yes Safety Risks/Education Teaching Recipient: Patient, Significant Other Teaching Methods: Demonstration, Discussion Response to Teaching: Verbalize Understanding, Return Demonstration Education Topics Provided: Safety of oral intake and diet level Time Speech Therapy Time In: 12:45 Speech Therapy Time Out: 13:15 Total Billed Time: 30 Billed Treatment Time Sunny BRIAN Dent Mar 28, 2020 13:55
--- NOTE | 2020-03-28 14:03 | Cardiology Progress Note ---
Cardiology SOAP Progress Note Subjective: No cardiac complaints. Objective: I&O/Vital Signs 03/28/20 13:51 Temp 37.0 Pulse 87 Resp 18 B/P (MAP) 125/67 Pulse Ox 94 O2 Delivery Room Air Constitutional: AAO x 3, PERRL, well-developed, well-nourished Respiratory: chest is bilaterally symmetric, lungs clear to auscultation Cardiovascular: regular rate-rhythm, S1 and S2 Gastrointestional: soft, audible bowel sounds Extremities: normal range of motion, non-tender, normal inspection, no lower extremity edema bilateral Neurologic/Psychiatric: no motor/sensory deficits, alert, normal mood/affect, oriented x 3 Skin: normal color, warm/dry A/P: Assessment/Dx: Cryptogenic stroke Plan: Cryptogenic stroke, negative carotids. Telemetry over 48 hours was negative for atrial fibrillation. Echocardiogram showed normal LV function with no wall motion abnormalities. Negative bubble study ruled out significant intracardiac shunting. Long-term surveillance of atrial fibrillation is recommended. Implantable loop recorder was done. DC telemetry. Continue full dose aspirin. Thank you for your consultation. Please call me if you have any questions. Tiesha Arevalo MD, FACP, FACC, FSCAI, FHRS, CCDS Interventional Cardiology Cardiac Electrophysiology Vascular Medicine and Endovascular Interventions Shaggy AREVALO MD Mar 28, 2020 14:03
[2020-03-28] MEDS: HYDROcodone/APAP 5 MG/325 MG (LORTAB) TAB PO PRN (15:00)
--- NOTE | 2020-03-28 15:30 | NUR ---
PT EXPRESSES HE USES CBD OIL AT HOME, 2-3 DROPS EVERY MORNING TO HELP WITH MOOD AND PAIN. STATES IT IS STILL AT HOME AT THIS TIME, BUT SHE WILL BRING IT IN TOMORROW, IF OK TO DO SO. UPDATED KLARISSA/ARSLAN ABOUT PT/FAMILY REQUEST, OK'D LONG OK'D WITH . SPOKE WITH PHARMACY, WILL PLACE IT AN OTC HOME MED, IF/WHEN BROUGHT IN. UPDATED REGARDING SITUATION. APPROVAL PER DR GATICA, IF MEDICATION IS BROUGHT IN. WILL CON'T TO MONITOR.
--- NOTE | 2020-03-28 15:40 | NUR ---
CM/SS ADMISSION Patient was admitted to ARU from [facility] for acute right MCA stroke with left sided deficit and dysphagia II. Patient has positive IgG for Covid19. His spouse has history of positive Covid, asymptomatic, and followed her employment protocols for quarantine. Patient resides at home with his spouse Carole and their daughter Mindi, age 18. Patient desires to return home as soon as able. Carole is an RN at [employer] and is pursing a medical leave in order to participate in the care of her spouse. Patient's father, Connor Wei Sr. this morning. He has requested to be able to go to services which are set for: [facility], 04/01/20, 6-8 p.m. [place], 04/02/20, [facility], [facility] [address], 1000 a.m. Will attempt to schedule [facility], exploring whether patient can go to evening service logistically due to transport issues. PCP: Patient had refused to see physicians, go to hospitals, or take Rx until this acute situation. He today states he is willing to establish with a PCP, his choice is Dr. Jack Palm of [place]. Spouse will make contact and inquire about him becoming a new patient. PHARMACY: They were using [facility] in [place] due to 's employment in that area; they may opt to use [facility] [place]. INSURANCE: [employer], a [employer]. DME: None. Patient was IADL and has never needed DME. BARRIERS TO DISCHARGE: Unexpected acute MCA stroke with deficits, young age with new dependency. No DME at all, may need ramp, may require attendant caregiver at all times. To be determined. CONTACTS: Carole Wei, spouse [phone] Mindi Wei, daughter [phone] Patient and Carole both indicated understanding of the purpose and process of the weekly patient care conference and that his first review would be 04/03/20.
[2020-03-28] MEDS: ENOXAPARIN 40 MG/0.4 ML (LOVENOX) SYR SC SCH (18:14)
[2020-03-28] MEDS: AUGMENTIN 875 MG TAB (AMOXICILLIN/CLAVULANATE) PO SCH (18:14)
[2020-03-28 18:30] VITALS: BP 141/67
[2020-03-28] MEDS: DOCUSATE SODIUM 100 MG (COLACE) CAP PO SCH (20:22)
[2020-03-28] MEDS: polyethylene glycoL POWDER 17 GM (MIRALAX) PACK PO SCH (20:23)
[2020-03-28] MEDS: SENNA W/DOCUSATE (SENOKOT S) TABLET PO SCH (20:25)
[2020-03-28] MEDS: SERTRALINE 50 MG (ZOLOFT) TABLET PO SCH (20:25)
[2020-03-29 04:58] VITALS: BP 132/86
[2020-03-29 05:48] LABS: BASOPHILS % (AUTO) 0 % (0-10); EOSINOPHILS # (AUTO) 0.2 10^3/uL (0.0-0.3); EOSINOPHILS % (AUTO) 2 % (0-10); HEMATOCRIT 38 % (40-54); HEMOGLOBIN 12.4 G/DL (13.3-17.7); LYMPHOCYTES # (AUTO) 1.5 X 10^3 (1.0-4.0); LYMPHOCYTES % (AUTO) 18 % (12-44); MEAN CORPUSCULAR HEMOGLOBIN 29 PG (25-34); MEAN CORPUSCULAR HGB CONC 33 G/DL (32-36); MEAN CORPUSCULAR VOLUME 90 FL (80-99); MEAN PLATELET VOLUME 10.6 FL (7.4-10.4); MONOCYTES # (AUTO) 0.4 X 10^3 (0.0-1.0); MONOCYTES % (AUTO) 5 % (0-12); NEUTROPHILS # (AUTO) 6.5 X 10^3 (1.8-7.8); NEUTROPHILS % (AUTO) 75 % (42-75); PLATELET COUNT 276 10^3/uL (130-400); RED CELL DISTRIBUTION WIDTH 12.9 % (10.0-14.5); WHITE BLOOD COUNT 8.6 10^3/uL (4.3-11.0)
[2020-03-29 06:03] LABS: ALBUMIN 3.6 GM/DL (3.2-4.5)
[2020-03-29 06:04] LABS: CHLORIDE 106 MMOL/L (98-107); POTASSIUM 4.1 MMOL/L (3.6-5.0); SODIUM 140 MMOL/L (135-145)
[2020-03-29 06:05] LABS: CALCIUM 9.1 MG/DL (8.5-10.1)
[2020-03-29 06:06] LABS: GLUCOSE 112 MG/DL (70-105); TOTAL PROTEIN 6.8 GM/DL (6.4-8.2)
[2020-03-29 06:07] LABS: CARBON DIOXIDE 23 MMOL/L (21-32)
[2020-03-29 06:08] LABS: BILIRUBIN,TOTAL 0.7 MG/DL (0.1-1.0)
[2020-03-29 06:09] LABS: ALKALINE PHOSPHATASE 60 U/L (40-136)
[2020-03-29 06:10] LABS: CREATININE SERUM 0.74 MG/DL (0.60-1.30); GFR ESTIMATED > 60
[2020-03-29 06:11] LABS: BUN/CREATININE RATIO 32
[2020-03-29 06:13] LABS: ALANINE AMINOTRANSFERASE 36 U/L (0-55)
--- NOTE | 2020-03-29 06:32 | Individualized Plan of Care ---
Individualized Plan of Care Rehab Nursing IPOC Order Admission Date Mar 28, 2020 at 09:40 Current Orders Orders Admission Order(Inpt,Obs,Sdc) (03/28/20 09:39) Vital Signs: Per Unit Policy ( ,16,00 (03/28/20 09:39) Shaji Dutta 09,21 (03/28/20 09:39) Sequential Compression Device Q4H (03/28/20 09:39) Whitesmith-Inpt Rehab Con (03/28/20 09:39) Rehab Nursing Orders-Ipoc (03/28/20 09:39) Physical Therapy Rehab Orders (03/28/20 09:39) Occupational Therapy Rehab Ord (03/28/20 09:39) Speech Therapy Rehab Orders (03/28/20 09:39) Cbc With Automated Diff (03/29/20 06:00) Comprehensive Metabolic Panel (03/29/20 06:00) Intake & Output 06,14,22 (03/28/20 09:39) Precautions (Aru) (03/28/20 09:39) Weekly Weight WEEK (03/28/20 09:39) Rehab-Intensity Of Therapy (03/28/20 09:39) Initiate Admission Nursing Pro .admission (03/28/20 09:39) Alprazolam Tablet (Xanax Tablet) (03/28/20 09:45) Calcium Carbonate Chew Tablet (Antacid C (03/28/20 09:45) Diphenhydramine Tablet (Benadryl Tablet) (03/28/20 09:45) Docusate Sodium Capsule (Colace Capsule) (03/28/20 21:00) Docusate Sodium Capsule (Colace Capsule) (03/28/20 09:45) Bisacodyl Suppository (Dulcolax Supposit (03/28/20 09:45) Lactulose Oral Solution (Enulose Oral So (03/28/20 09:45) Na Phos/Na Biphos Enema (Fleet Enema Benny (03/28/20 09:45) Guaifenesin/Codeine Syrup (Robitussin Ac (03/28/20 09:45) Loperamide Tablet (Imodium Tablet) (03/28/20 09:45) Melatonin Tablet (Melatonin Tablet) (03/28/20 09:45) Polyethylene Glycol Powder Pkt (Miralax (03/28/20 21:00) Ondansetron Oral Dissolve Tab (Zofran (03/28/20 09:45) Senna S Tablet (Senokot S Tablet) (03/28/20 21:00) Initiate Admission Nursing Pro .admission (03/28/20 09:39) Transfer - Bed/Room/Location (03/28/20 09:40) Code/Resuscitation (03/28/20 10:55) Catheter(Urinary) Insert & Ass 03,15 (03/28/20 10:55) Telemetry (03/28/20 10:55) Dys2 Mechanically Altered (03/28/20 Lunch) Acetaminophen Tablet/Caplet (Tylenol T (03/28/20 11:00) Aspirin Chewable Tablet (Baby Aspirin Ch (03/29/20 09:00) Atorvastatin Tablet (Lipitor) (03/28/20 21:00) Carboxymethylcell Ophth Soln (Refresh Pl (03/28/20 11:00) Enoxaparin Injection (Lovenox Injection) (03/28/20 17:00) Hydrocodone/Apap 5/325 Tablet (Lortab 5 (03/28/20 11:00) Ondansetron Injection (Zofran Injectio (03/28/20 11:00) Patch Removal (Patch Removal) (03/28/20 11:00) Sertraline Tablet (Zoloft Tablet) (03/28/20 21:00) Piperacillin/Tazobactam (Bulk) (Zosyn In (03/28/20 11:00) Hydralazine Injection (Apresoline Inject (03/28/20 11:00) Consult Cardiology (03/28/20 10:55) Rt Request For Service (03/28/20 10:55) Telemetry Nursing Assessment ( (03/28/20 10:55) Pastoral Consult (03/28/20 11:48) Amoxicillin/Clavulanate Tablet (Augmenti (03/28/20 18:00) Patient Visit (03/28/20 ) Pt Eval Moderate Complexity (03/28/20 ) Functional Activities, Ea 15 (03/28/20 ) Aspirin Tablet (Aspirin Tablet) (03/29/20 09:00) Patient Visit (03/28/20 ) Dysphagia Evaluation Std (03/28/20 ) Speech Sound Lang Comp (03/28/20 ) Ambulate 08,12, (03/28/20 14:35) Sequential Compression Device Q4H (03/28/20 14:35) Dvt/Vte Risk - Notifiy Physici Q4H (03/28/20 14:35) Consult Urology (03/28/20 16:45) Tamsulosin Capsule (Flomax Capsule) (03/29/20 18:00) Patient Visit (03/29/20 ) Functional Activities, Ea 15 (03/29/20 ) Patient Visit (03/29/20 ) Treat. Speech/Lang/Voice (03/29/20 ) Rehab Nursing Orders: Ongoing Assess. of Cognitive Status, Ongoing Assess. of Function Status, Bladder Management, Bladder Scan, Bladder Training, Bowel Management, Bowel Training, Disease Management & Educaiton, DVT Prophylaxis, Fall Prevention, Fluid/Electrolyte/Nutrition Mgmt, Infection Prevention, Medication Management & Education, Management of Risks & Complications, Evangelina gement of Skin Intergrity, Nutrition Management, Pain Management, Patient/Family Support, Safety Management, Swallow Precautions, Wound Management Intensity of Therapy to be met Patient to be seen: Min.3h per day/5 of 7d PT IPOC Problem List: Activity Tolerance, Functional Strength, Safety, Balance, Gait, Transfer, Bed Mobility, ROM Treatment Plan: Continue Plan of Care Bed Mobility, Education, Functional Activity Georgiana, Functional Strength, Group Therapy, Gait, Safety, Therapeutic Exercise, Transfers Treatment Duration: Apr 18, 2020 Frequency: At least 5 of 7 days/Wk (IRF) Estimated Hrs Per Day: 1.5 hours per day OT IPOC Problems: Decreased Activ Tolerance, Decreased Safety Aware, Decreased UE Str ength, Dependent Transfers, Impaired Bed Mobility, Impaired Coordination, Impaired Funct Balance, Impaired I ADL's, Impaired Self-Care Skills, Restricted Funct UE ROM, Visual-Perceptual Deficit (L neglect) OT Treatment, Training and Edu: Yes Plan of Care: ADL Retraining, Functional Mobility, UE Funct Exercise/Act, UE Neuromus Re-Ed/Coord, Visual/Perceptual Retrain Treatment Duration: Apr 25, 2020 Frequency: At least 5 of 7 days/Wk (IRF) Estimated Hrs Per Day: 1.[address] IPOC Speech Therapy Treatment Plan: Continue Plan of Care Treatment Duration: Apr 05, 2020 Frequency: 5 times per week Estimated Hrs Per Day: .5 hour per day Whitesmith/Case Mgmt Whitesmith/Case Managemen: Discharge Planning Dietitian/Underground Truck Operator Dietitian/Underground Truck Operator to monitor nutritional status and make changes and/or recommendations as needed and work with speech pathology on dietary upgrades as the occur. Physician IPOC Medical Issues being managed closely and that require the 24 hour availability of a physician: Recent catastrophic CVA with left sided flaccidity will require close monitoring for decompensation and increased risk for infections Medical Issues: Bowel/Bladder Function, DVT Prophylaxis, Falls Precautions, Fluid/Electrolyte/Nutrition Balance, Infection Protection, Pain Management, Swallowing Precautions, Wound Care Brief Synthesis of Preadmission Screen, Post-Admission Evaluation, and Therapy Evaluations: PT OT ST will all focus on improving on new left sided weakness by helping regain ADL's in order to resolve dysphagia and aspiration risk along with decreasing burden on caregivers Medical Prognosis: Fair Anticipated Length of Stay: 21 days AIDE GATICA DO Mar 29, 2020 06:32
--- NOTE | 2020-03-29 06:32 | PM&R Progress Note ---
Subjective HPI/CC On Admission Date Seen by Provider: Mar 29, 2020 Time Seen by Provider: 09:00 Subjective/Events-last exam Flaccidity remains on the left side at bedside Father's is Wednesday Catheter will remain in until after he comes back from Flomax started by Dr Drake Takes pills ok without dysphagia Had some urinary retention at home chronically Labs good and I updated him on that Left heel blister noted Small BM this am Checked meds and labs Conferred wtih RN Reviewed therapy notes Mehnaz life rather than sit to stand will remain for now Review of Systems General: Fatigue, Malaise HEENT: Dysphasia Genitourinary: Retention Neurological: Weakness, Numbness, Incoordination Objective Exam Vital Signs Vital Signs Date Time Temp Pulse Resp B/P (MAP) Pulse Ox O2 Delivery O2 Flow Rate FiO2 03/29/20 16:05 36.8 72 16 136/84 (101) 96 Room Air Capillary Refill : Less Than 3 Seconds General Appearance: No Apparent Distress, WD/WN, Chronically ill HEENT: PERRL/EOMI, Normal ENT Inspection, Pharynx Normal Neck: Full Range of Motion, Normal Inspection, Non Tender, Supple, Carotid Bruit Respiratory: Chest Non Tender, Lungs Clear, Normal Breath Sounds, No Accessory Muscle Use, No Respiratory Distress Cardiovascular: Regular Rate, Rhythm, No Edema, No Gallop, No JVD, No Murmur, Normal Peripheral Pulses Gastrointestinal: Normal Bowel Sounds, No Organomegaly, No Pulsatile Mass, Non Tender, Soft Back: Normal Inspection, No CVA Tenderness, No Vertebral Tenderness Extremity: Normal Capillary Refill, Normal Inspection, Normal Range of Motion ( except left side), Non Tender, No Calf Tenderness, No Pedal Edema Neurologic/Psychiatric: Alert, Oriented x3, No Motor/Sensory Deficits, Normal Mood/Affect, Depressed Affect, Facial Droop (left), Motor Weakness (left sided paresis 0/5 flaccid) Skin: Normal Color, Warm/Dry Lymphatic: No Adenopathy Results/Procedures Lab Laboratory Tests 03/29/20 05:29 Patient resulted labs reviewed. FIM Transfers Therapy Code Descriptions/Definitions Functional [place] Measure: 0=Not Assessed/NA 4=Minimal Assistance 1=Total Assistance 5=Supervision or Setup 2=Maximal Assistance 6=Modified [place] 3=Moderate Assistance 7=Complete IndependenceSCALE: Activities may be completed with or without assistive devices. 9-Ysoxmohjkf-xibdwjt completes the activity by him/herself with no assistance from a helper. 5-Set-up or Clean-up Assistance-helper sets up or cleans up; patient completes activity. [place] assists only prior to or following the activity. 4-Supervision or Touching Assistance-helper provides verbal cues and/or touching/steadying and/or contact guard assistance as patient completes activity. Assistance may be provided throughout the activity or intermittently. 3-Partial/Moderate Assistance-helper does LESS THAN HALF the effort. [place] lifts, holds or supports trunk or limbs, but provides less than half the effort. 2-Substantial/Maximal Assistance-helper does MORE THAN HALF the effort. [place] lifts or holds trunk or limbs and provides more than half the effort. 0-Qatmsjbtq-iaggtj does ALL the effort. Patient does none of the effort to complete the activity. Or, the assistance of 2 or more helpers is required for the patient to complete the activity. If activity was not attempted, code reason: 7-Patient Refused. 9-Not Applicable-not attempted and the patient did not perform the activity before the current illness, exacerbation or injury. 10-Not Attempted due to Environmental Limitations-(lack of equipment, weather restraints, etc.). 88-Not Attempted due to Medical Conditions or Safety Concerns. Roll Left to Right (QC): 2 Sit to Lying (QC): 1 Sit to Stand (QC): 1 Chair/Pop-rs-Kkvuv Xfer(QC): 1 Car Transfer (QC): 1 Gait Training Does the Patient Walk?: No and Walking Goal NOT indicated Walk 10 feet (QC): 88 Walk 50 ft with 2 Turns(QC): 88 Walk 150 ft (QC): 88 Walking 10ft/uneven surface-QC: 88 Wheelchair Training Does the Pt Use a Wheelchair?: Yes Distance: 150' Wheel 50 ft with 2 turns (QC): 2 Wheel 150 ft (QC): 2 Type of Wheelchair: Manual Stair Training 1 Step (curb) (QC): 88 4 Steps (QC): 88 12 Steps (QC): 88 Balance Picking up an Object (QC): 88 ADL-Treatment Eating (QC): 88 Oral Hygiene (QC): 7 Bathing Location: Chest, Abdomen, Perineal Area Shower/Bathe Self (QC): 1 (Assist x2 for safety during sitting due to pt's decreased sitting balance.) Upper Body Dressing (QC): 7 Lower Body Dressing (QC): 7 On/Off Footwear (QC): 1 Toileting Hygiene (QC): 88 Assessment/Plan Assessment and Plan Assess & Plan/Chief Complaint Assessment: Catastrophic CVA with left sided flaccidity Left facial droop COVID-19 antibody + Bipolar disorder Autism spectrum Urinary retention Pickett cath in place consulted Dr Drake Plan: IRF protocol Dr Drake consultation Monitor bowel function Fall risk CBD oil (1) Acute right MCA stroke Status: Acute (2) Facial droop due to cerebrovascular accident (CVA) (3) Bipolar disorder (4) Autism spectrum (5) Urinary retention (6) Pickett catheter in place (7) Coronavirus infection, unspecified Status: Chronic (8) Left-sided neglect Status: Acute (9) Dysphasia due to recent cerebrovascular accident (CVA) Status: Acute AIDE GATICA DO Mar 29, 2020 06:32
[2020-03-29] MEDS ORDERED: ASPIRIN 81 MG CHEW (CHILDREN'S ASA) PO SCH (09:00)
[2020-03-29] MEDS: DOCUSATE SODIUM 100 MG (COLACE) CAP PO SCH ×2 (09:11→21:11)
[2020-03-29] MEDS: AUGMENTIN 875 MG TAB (AMOXICILLIN/CLAVULANATE) PO SCH ×2 (09:11→17:22)
[2020-03-29] MEDS: polyethylene glycoL POWDER 17 GM (MIRALAX) PACK PO SCH ×2 (09:11→21:11)
[2020-03-29] MEDS: ASPIRIN 325 MG (5 GR) TABLET PO SCH (09:11)
[2020-03-29] MEDS: SENNA W/DOCUSATE (SENOKOT S) TABLET PO SCH ×2 (09:12→21:11)
--- NOTE | 2020-03-29 09:24 | Occupational Ther Daily Note ---
OT Current Status-Daily Note Subjective Pt alert, reclining in chair. Pt agrees to therapy. No c/o pain. Mental Status/Objective Patient Orientation: Person, Place, Time, Situation ADL-Treatment OT/PT co-treat, skills of 2 clinicians required due to pt's medical complexity, dependent transfers, decreased movement, dependent with L UE movement. PT working in standing, sitting balance during functional tasks, strengthening and transfers. OT working on ADLs, L UE placement/positioning during standing/transfers, strengthening. Pt to use sebastien lift for all transfers. Pt has L neglect, leans to L and pushes L with R hand. Pt is dependent with all dressing. Assist needed for eating and completing oral care. Pt using bedpan for bowel movements due to decreased sitting balance, scooting self out of chair and pushing left. Dependent for toileting. Pt requires 2-3 person transfers with sit to stand. Assist x2 for all mobility. After session, pt lying in bed with call light/phone in reach. All needs met in room. Therapy Code Descriptions/Definitions Functional [place] Measure: 0=Not Assessed/NA 4=Minimal Assistance 1=Total Assistance 5=Supervision or Setup 2=Maximal Assistance 6=Modified [place] 3=Moderate Assistance 7=Complete IndependenceSCALE: Activities may be completed with or without assistive devices. 3-Ovcpdzyrvv-oiqgqmj completes the activity by him/herself with no assistance from a helper. 5-Set-up or Clean-up Assistance-helper sets up or cleans up; patient completes activity. [place] assists only prior to or following the activity. 4-Supervision or Touching Assistance-helper provides verbal cues and/or touching/steadying and/or contact guard assistance as patient completes a ctivity. Assistance may be provided throughout the activity or intermittently. 3-Partial/Moderate Assistance-helper does LESS THAN HALF the effort. [place] lifts, holds or supports trunk or limbs, but provides less than half the effort. 2-Substantial/Maximal Assistance-helper does MORE THAN HALF the effort. [place] lifts or holds trunk or limbs and provides more than half the effort. 8-Gbfjkqnzw-ztkkmx does ALL the effort. Patient does none of the effort to complete the activity. Or, the assistance of 2 or more helpers is required for the patient to complete the activity. If activity was not attempted, code reason: 7-Patient Refused. 9-Not Applicable-not attempted and the patient did not perform the activity before the current illness, exacerbation or injury. 10-Not Attempted due to Environmental Limitations-(lack of equipment, weather restraints, etc.). 88-Not Attempted due to Medical Conditions or Safety Concerns. Eating (QC): 2 Oral Hygiene (QC): 2 Upper Body Dressing (QC): 2 Lower Body Dressing (QC): 1 On/Off Footwear: 2 Toileting Hygiene (QC): 1 Toilet Transfer (QC): 1 Other Treatment See PT notes for standing and transfer progress. No movement noted in L UE. 1/2" subluxation of L shldr. PROM to L UE. OT Short Term Goals Short Term Goals Time Frame: Apr 11, 2020 Eatin Oral hygiene: 3 Toileting hygiene: 3 Shower/bathe self: 2 Upper body dressin Lower body dressin Putting on/taking off footwear: 2 OT Basting Marker Goals Snf Goals Time Frame: Apr 25, 2020 Eating (QC): 4 Oral Hygiene (QC): 4 Toileting Hygiene (QC): 3 Shower/Bathe Self (QC): 3 Upper Body Dressing (QC): 4 Lower Body Dressing (QC): 4 On/Off Footwear (QC): 4 Additional Goals: 1-Demonstrate ADL Tasks, 2-Verbalize Understanding, 3- ImproveStrength/[place] 1=Demonstrate adherence to instructed precautions during ADL tasks. 2=Patient will verbalize/demonstrate understanding of assistive devices/modifications for ADL. 3=Patient will improve strength/tolerance for activity to enable patient to perform ADL's. OT Education/Plan Problem List/Assessment Assessment: Decreased Activ Tolerance, Decreased Safety Aware, Decreased UE Strength, Dependent Transfers, Impaired Bed Mobility, Impaired Cognition, Impaired Coordination, Impaired Funct Balance, Impaired I ADL's, Impaired Self-Care Skills, Restricted Funct UE ROM, Visual-Perceptual Deficit Discharge Recommendations Plan/Recommendations: Continue POC Treatment Plan/Plan of Care Patient would benefit from OT for education, treatment and training to promote independence in ADL's, mobility, safety and/or upper extremity function for ADL's. Plan of Care: ADL Retraining, Functional Mobility, UE Funct Exercise/Act, UE Neuromus Re-Ed/Coord, Visual/Perceptual Retrain Treatment Duration: Apr 25, 2020 Frequency: At least 5 of 7 days/Wk (IRF) Estimated Hrs Per Day: 1.5 hours per day Agreement: Yes Rehab Potential: Good Time/GCodes Start Time: 08:00 Stop Time: 09:15 Total Time Billed (hr/min): 75 Billed Treatment Time 1 visit-ADL 2 (30 min) NM 3 (45 min) co-treat with PT 75 min ([id number]) JOSIAH ESCALANTE Mar 29, 2020 09:24
--- NOTE | 2020-03-29 10:09 | Speech Therapy Daily Note ---
Speech Daily Progress Note Subjective Date Seen by Provider: Mar 29, 2020 Time Seen by Provider: 00:30 Patient was resting in bed following his OT and PT session this am. Objective Patient completed general information "fill in the blanks" at 85% with minimal cuing. Assessment Assessment Current Status: Good Progress Treatment Plan Continue Plan of Care Speech Short Term Goals Short Term Goals Short Term Goals 1) Patient will complete memory tasks related to his daily needs at 90% or greater with minimal cues. 2) Patient will complete safety awareness tasks related to his daily needs at 90% or greater with minimal cues. 3) Patient will complete problem solving tasks related to his daily needs at 90% or greater with minimal cues. 4) Patient will tolerate least restrictive diet level without s/s of aspiration at 90% or greater. 5) Patient/caregiver will utilize compensatory strategies as trained at 90% or greater with minimal cues. Speech Loft Rigger Goals Fdc Goals Patient will improve cognitive-communication necessary for safety and daily living tasks with minimal assist. Patient will maintain adequate nutrition/hydration via safe effective swallow function. Speech-Plan Patient/Family Goals Patient/Family Goals: Patient plans on returning to his home where he lives with his and 17 y/o daughter. Treatment Plan Speech Therapy Treatment Plan: Continue Plan of Care Treatment Duration: Apr 05, 2020 Frequency: 5 times per week Estimated Hrs Per Day: .5 hour per day Rehab Potential: Good Barriers to Learning: Patient's recent CVA Pt/Family Agrees to Plan: Yes Safety Risks/Education Teaching Recipient: Patient, Significant Other Teaching Methods: Demonstration, Discussion Response to Teaching: Verbalize Understanding, Return Demonstration Education Topics Provided: Continued safety within his room Time Speech Therapy Time In: 09:30 Speech Therapy Time Out: 10:00 Total Billed Time: 30 Billed Treatment Time 1LEVI BETHAN[address] ST Mar 29, 2020 10:09
--- NOTE | 2020-03-29 10:19 | CONSULTATION REPORT ---
DATE OF SERVICE: 03/29/2020 ATTENDING PHYSICIAN: Dr. Hyman. SUMMARY: The patient admitted with a left CVA. Catheter was inserted in the emergency room. Questioned the patient and his . He did have symptoms of prostatism prior to admission in the form of nocturia x 4 to 5, slowing of the stream and incomplete emptying of the bladder. He is not taking any medicine for it or for bladder or prostate. He did not have any surgery on them either. IMPRESSION: Left CVA with BPH and possible neurogenic bladder. PLAN: Leave the catheter for now and then start him on Flomax daily, build up in his system and maybe will try voiding in a week or two as he also gets physical therapy and get some more active. The plan was fully explained to the patient and his . Job ID: [id number] DocumentID: [id number] Dictated Date: 03/29/2020 09:53:45 Electronics Recycler Date: 03/29/2020 10:18:54 Dictated By: TIFFANIE WOMACK MD
--- NOTE | 2020-03-29 10:23 | Physical Therapy Daily Note ---
PT Daily Note-Current Subjective Patient in recliner pre tx agrees to PT, has unrated pain in his "tailbone". Will be co-treating with OT due to poor patient mobility, strength, endurance, sitting and standing balance, left hemiplegia, pushers syndrome, the need to coordinate UE and LE during activity. Appearance Patient in bed post tx with nurse call, phone, tray, all needs met, on left side with pillow support for pressure relief. Mental Status Patient Orientation: Person, Place, Situation Attachments: Pickett Catheter Transfers SCALE: Activities may be completed with or without assistive devices. 9-Zawfgspamw-szgiari completes the activity by him/herself with no assistance from a helper. 5-Set-up or Clean-up Assistance-helper sets up or cleans up; patient completes activity. [place] assists only prior to or following the activity. 4-Supervision or Touching Assistance-helper provides verbal cues and/or touching/steadying and/or contact guard assistance as patient completes activity. Assistance may be provided throughout the activity or intermittently. 3-Partial/Moderate Assistance-helper does LESS THAN HALF the effort. [place] lifts, holds or supports trunk or limbs, but provides less than half the effort. 2-Substantial/Maximal Assistance-helper does MORE THAN HALF the effort. [place] lifts or holds trunk or limbs and provides more than half the effort. 5-Ncanlhqgu-rskiyc does ALL the effort. Patient does none of the effort to complete the activity. Or, the assistance of 2 or more helpers is required for the patient to complete the activity. If activity was not attempted, code reason: 7-Patient Refused. 9-Not Applicable-not attempted and the patient did not perform the activity before the current illness, exacerbation or injury. 10-Not Attempted due to Environmental Limitations-(lack of equipment, weather restraints, etc.). 88-Not Attempted due to Medical Conditions or Safety Concerns. Roll Left & Right (QC): 2 Sit to Lying (QC): 1 Lying to Sitting/Side of Bed(Q: 1 Sit to Stand (QC): 1 Chair/Jaq-tg-Jxgcd Xfer(QC): 1 Patient dressed just before and after and during sit to stand machine transfer to . Patient then propelled WC to therapy gym 150' with max assist, he is reluctant to use right arm but will use right leg to help propel, taken to paral lel bars stood x3 with max assist of 2, patient leans heavily to the left side, pushes to the left with his right arm. PROM/stretching to right leg in all planes. Patient states he needs to have a BM, WC mobility training back to room, sit to stand machine transfer back to bed, roll and placed bedpan, used bedpan, roll for cleaning, undressed. Treatments bed mobility and transfers, WC mobility, standing, toileting. PT performed bed mobility and transfers, WC mobility, standing, LE stretching, assist with BM and cleaning, OT performed BM and cleaning, UE positioning and safety during activity, UE ROM, assist with bed mobility and transfers. Assessment Current Status: Poor Progress Using the sit to stand machine has become too hazardous. Patient pushes too much to the left side, the left leg externally rotates out of a secure position and patient gets into a very unsafe position, 3 people were used for the sit to stand machine transfer on the last one, recommend sebastien transfer from now on. PT Short Term Goals Short Term Goals Time Frame: Apr 04, 2020 Roll Left & Right: 3 Sit to lyin Lying to sitting on side of be: 3 Sit to stand: 3 Chair/yah-uc-wykeh transfer: 2 PT Freight Conductor Goals Fpc Goals PT Fpc Goals Time Frame: Apr 18, 2020 Roll Left & Right (QC): 3 (Pablo) Sit to Lying (QC): 3 (Pablo) Lying-Sitting on Side/Bed(QC): 3 (Pablo) Sit to Stand (QC): 3 (Pablo) Chair/Rds-en-Yrqpi Xfer(QC): 3 (Pablo) Toilet Transfer (QC): 3 (Pablo) Car Transfer (QC): 3 (mod A) Does the Patient Walk: No and Walking Goal NOT indicated Walk 10 feet (QC): 88 Walk 50ft with 2 Turns (QC): 88 Walk 150 ft (QC): 88 Walking 10ft on Uneven Surface: 88 1 Step (curb) (QC): 88 4 Steps (QC): 88 12 Steps (QC): 88 Picking up an Object (QC): 88 Does the Pt use WC or Scooter?: Yes Wheel 50 feet with 2 turns (QC: 3 (Pablo) Type: Manual Wheel 150 feet: 3 (Pablo) Type: Manual PT Plan Problem List Problem List: Activity Tolerance, Functional Strength, Safety, Balance, Gait, Transfer, Bed Mobility, ROM Treatment/Plan Treatment Plan: Continue Plan of Care Treatment Plan: Bed Mobility, Education, Functional Activity [place], Functional Strength, Group Therapy, Gait, Safety, Therapeutic Exercise, Transfers Treatment Duration: Apr 18, 2020 Frequency: At least 5 of 7 days/Wk (IRF) Estimated Hrs Per Day: 1.5 hours per day Patient and/or Family Agrees t: Yes Safety Risks/Education Patient Education: Transfer Techniques, Correct Positioning, W/C Management, Safety Issues Teaching Recipient: Patient Teaching Methods: Demonstration, Discussion Response to Teaching: Reinforcement Needed Time/GCodes Time In: 0800 Time Out: 0915 Total Billed Treatment Time: 75 Total Billed Treatment 1 visit FA 75' co-treated with OT for the whole 75' MARK RYAN PT Mar 29, 2020 10:23
[2020-03-29] MEDS: HYDROcodone/APAP 5 MG/325 MG (LORTAB) TAB PO PRN (11:44)
--- NOTE | 2020-03-29 13:34 | NUR ---
CM/SS CONCURRENT DOCUMENTATION Visited with patient and spouse regarding Connor Wei 's services next week. Physician is approving/supporting patient's leave for his father's services. Insect Control Aide is trying to coordinate appropriate transportation and exploring resources for same. Call out to [facility], await response. Alternative may be SNF/[facility] if [facility] refuses. Patient is not able to transport via private vehicle due to recent stroke, left sided neglect, and trained staff required re body positioning and transfers for safety at this time.
--- NOTE | 2020-03-29 13:59 | NUR ---
"RD ASSESSMENT PMHx: HTN; developmental disorder PT INTERACTION: Pt was awake and pleasant during nutrition follow-up. Pt states he has been eating well since last assessment. Note avg PO intake 25-50% of meals, per chart review. Pt states no issues with nausea, vomiting, constipation, or diarrhea since last assessment. Note no BM has been recorded, and pt currently on bowel regimen of colace BID; senna BID; and miralax BID, per chart review. ABNORMAL NUTRITION-RELATED LAB VALUES LOW: HIGH: BUN 24; glu 112 Est. kcal needs: 1850 kcal | 20 kcal/kg Est. Pro needs: 74 g Pro | 0.8 g Pro/kg PES STATEMENT: Inadequate oral intake (NI-2.1) related to loss of appetite as evidenced by pt interview | avg PO intake 20-50% meals INTERVENTION: Continue with current diet order of DYS2 Mechanically Altered diet. Pt may benefit from nutrition supplementation if PO intake declines. Will continue to follow and reassess as pt needs, intake, and status change. MONITOR/EVALUATE: PO Intake; Plan of Care; Hydration Status; Weight Status; Lab Values Jodi Hassan, MS, RD, LD"
--- NOTE | 2020-03-29 14:17 | Cardiology Progress Note ---
Cardiology SOAP Progress Note Subjective: No cardiac complaints. Objective: I&O/Vital Signs 03/29/20 03/29/20 04:58 09:18 Temp 37.0 Pulse 89 Resp 18 B/P (MAP) 132/86 (101) Pulse Ox 95 O2 Delivery Room Air Room Air 03/29/20 00:00 Intake Total 480 ml Output Total 500 ml Balance -20 ml Constitutional: AAO x 3, PERRL, well-developed, well-nourished Respiratory: chest is bilaterally symmetric, lungs clear to auscultation Cardiovascular: regular rate-rhythm, S1 and S2 Gastrointestional: soft, audible bowel sounds Extremities: normal range of motion, non-tender, normal inspection, no lower extremity edema bilateral Neurologic/Psychiatric: no motor/sensory deficits, alert, normal mood/affect, oriented x 3 Skin: normal color, warm/dry Results/Procedures: Labs Laboratory Tests 03/29/20 05:29: White Blood Count 8.6, Red Blood Count 4.24L, Hemoglobin 12.4L, Hematocrit 38L, Mean Corpuscular Volume 90, Mean Corpuscular Hemoglobin 29, Mean Corpuscular Hemoglobin Concent 33, Red Cell Distribution Width 12.9, Platelet Count 276, Mean Platelet Volume 10.6H, Neutrophils (%) (Auto) 75, Lymphocytes (%) (Auto) 18, Monocytes (%) (Auto) 5, Eosinophils (%) (Auto) 2, Basophils (%) (Auto) 0, Neutrophils # (Auto) 6.5, Lymphocytes # (Auto) 1.5, Monocytes # (Auto) 0.4, Eosinophils # (Auto) 0.2, Basophils # (Auto) 0.0, Sodium Level 140, Potassium Level 4.1, Chloride Level 106, Carbon Dioxide Level 23, Anion Gap 11, Blood Urea Nitrogen 24H, Creatinine 0.74, Estimat Glomerular Filtration Rate > 60, BUN/Creatinine Ratio 32, Glucose Level 112H, Calcium Level 9.1, Corrected Calcium 9.4, Total Bilirubin 0.7, Aspartate Amino Transf (AST/SGOT) 23, Alanine Aminotransferase (ALT/SGPT) 36, Alkaline Phosphatase 60, Total Protein 6.8, Albumin 3.6 A/P: Assessment/Dx: Cryptogenic stroke Plan: Cryptogenic stroke, negative carotids. Telemetry over 48 hours was negative for atrial fibrillation. Echocardiogram showed normal LV function with no wall motion abnormalities. Negative bubble study ruled out significant intracardiac shunting. Long-term surveillance of atrial fibrillation is recommended. Im plantable loop recorder was done. DC telemetry. Continue full dose aspirin. Thank you for your consultation. Please call me if you have any questions. Tiesha Arevalo MD, FACP, FACC, FSCAI, FHRS, CCDS Interventional Cardiology Cardiac Electrophysiology Vascular Medicine and Endovascular Interventions Shaggy AREVALO MD Mar 29, 2020 14:17
[2020-03-29 16:05] VITALS: BP 136/84
[2020-03-29] MEDS: ENOXAPARIN 40 MG/0.4 ML (LOVENOX) SYR SC SCH (17:22)
[2020-03-29] MEDS: TAMSULOSIN 0.4 MG (FLOMAX) CAP PO SCH (17:22)
[2020-03-29] MEDS: SERTRALINE 50 MG (ZOLOFT) TABLET PO SCH (21:05)
[2020-03-30 05:07] VITALS: BP 130/85
[2020-03-30] MEDS: HYDROcodone/APAP 5 MG/325 MG (LORTAB) TAB PO PRN ×4 (07:13→21:34)
[2020-03-30] MEDS: AUGMENTIN 875 MG TAB (AMOXICILLIN/CLAVULANATE) PO SCH ×2 (08:34→17:16)
[2020-03-30] MEDS: ASPIRIN 325 MG (5 GR) TABLET PO SCH (08:34)
[2020-03-30] MEDS: SENNA W/DOCUSATE (SENOKOT S) TABLET PO SCH ×2 (08:35→19:39)
[2020-03-30] MEDS: DOCUSATE SODIUM 100 MG (COLACE) CAP PO SCH ×2 (08:35→19:39)
[2020-03-30] MEDS: polyethylene glycoL POWDER 17 GM (MIRALAX) PACK PO SCH ×2 (08:35→19:39)
--- NOTE | 2020-03-30 10:22 | Physical Therapy Daily Note ---
PT Daily Note-Current Subjective Pt in bed watching TV upon arrival. Agrees to PT. Pain Numeric Pain Scale: 0-No Pain Location: No Pain Reported Mental Status Patient Orientation: Person, Place, Situation Attachments: Pickett Catheter Transfers SCALE: Activities may be completed with or without assistive devices. 1-Qyuwfpbzfq-uhhbxez completes the activity by him/herself with no assistance from a helper. 5-Set-up or Clean-up Assistance-helper sets up or cleans up; patient completes activity. [place] assists only prior to or following the activity. 4-Supervision or Touching Assistance-helper provides verbal cues and/or touching/steadying and/or contact guard assistance as patient completes activity. Assistance may be provided throughout the activity or intermittently. 3-Partial/Moderate Assistance-helper does LESS THAN HALF the effort. [place] lifts, holds or supports trunk or limbs, but provides less than half the effort. 2-Substantial/Maximal Assistance-helper does MORE THAN HALF the effort. [place] lifts or holds trunk or limbs and provides more than half the effort. 1-Oesrjunkv-tklqdi does ALL the effort. Patient does none of the effort to complete the activity. Or, the assistance of 2 or more helpers is required for the patient to complete the activity. If activity was not attempted, code reason: 7-Patient Refused. 9-Not Applicable-not attempted and the patient did not perform the activity before the current illness, exacerbation or injury. 10-Not Attempted due to Environmental Limitations-(lack of equipment, weather restraints, etc.). 88-Not Attempted due to Medical Conditions or Safety Concerns. Exercises Supine Ex: Ankle pumps (20 x2), Glut sets (20 x2), Heel Slides (20 x2), Short Arc Quads (20 x2), Straight leg raise (20 x2), Hip abd/add (20 x2) Treatments Supine ex completed; AROM, AAROM and at time PROM. Pt shouts out when LLE is brought towards torso (heel/slides). Pt states "It hurts my butt." Pt in bed w/ call light and bed side table w/in reach and all needs met at end of treatment. Assessment Current Status: Fair Progress Pt has difficulty at times following VC's to complete LE ex. PT Short Term Goals Short Term Goals Time Frame: Apr 04, 2020 Roll Left & Right: 3 Sit to lyin Lying to sitting on side of be: 3 Sit to stand: 3 Chair/arg-if-vpopf transfer: 2 PT Shelter Goals Occupational Health Technician Goals PT Shelter Goals Time Frame: Apr 18, 2020 Roll Left & Right (QC): 3 (Pablo) Sit to Lying (QC): 3 (Pablo) Lying-Sitting on Side/Bed(QC): 3 (Pablo) Sit to Stand (QC): 3 (Pablo) Chair/Kyz-br-Bnqpy Xfer(QC): 3 (Pablo) Toilet Transfer (QC): 3 (Pablo) Car Transfer (QC): 3 (mod A) Does the Patient Walk: No and Walking Goal NOT indicated Walk 10 feet (QC): 88 Walk 50ft with 2 Turns (QC): 88 Walk 150 ft (QC): 88 Walking 10ft on Uneven Surface: 88 1 Step (curb) (QC): 88 4 Steps (QC): 88 12 Steps (QC): 88 Picking up an Object (QC): 88 Does the Pt use WC or Scooter?: Yes Wheel 50 feet with 2 turns (QC: 3 (Pablo) Type: Manual Wheel 150 feet: 3 (Pablo) Type: Manual PT Plan Problem List Problem List: Activity Tolerance, Functional Strength, Safety, ROM Treatment/Plan Treatment Plan: Continue Plan of Care Treatment Plan: Bed Mobility, Education, Functional Activity [place], Functional Strength, Group Therapy, Gait, Safety, Therapeutic Exercise, Transfers Treatment Duration: Apr 18, 2020 Frequency: At least 5 of 7 days/Wk (IRF) Estimated Hrs Per Day: 1.5 hours per day Patient and/or Family Agrees t: Yes Safety Risks/Education Patient Education: Correct Positioning Teaching Recipient: Patient Teaching Methods: Discussion Response to Teaching: Verbalize Understanding Time/GCodes Time In: 908 Time Out: 923 Total Billed Treatment Time: 15 Total Billed Treatment 1, Ex (15m) TAMMIE HANCOCK CARPET TECHNICIAN Mar 30, 2020 10:22
--- NOTE | 2020-03-30 11:11 | PM&R Progress Note ---
Subjective HPI/CC On Admission Date Seen by Provider: Mar 30, 2020 Time Seen by Provider: 07:00 Subjective/Events-last exam Flaccidity remains on the left side Had a good night rest Father's is Wednesday, catheter will remain in until after he comes back from Flomax started by Dr Drake and tolerated well Takes pills ok without dysphagia Had some urinary retention at home chronically Left neck pain reported so will initiate pain meds and will try K-pad Left heel blister noted Aleven placed on that Loose BM's Checked meds and labs Conferred wtih RN Reviewed therapy notes Mehnaz life rather than sit to stand will remain for now Review of Systems General: Fatigue, Malaise Musculoskeletal: neck pain, shoulder pain Neurological: Weakness, Numbness, Incoordination Objective Exam Vital Signs Vital Signs Date Time Temp Pulse Resp B/P (MAP) Pulse Ox O2 Delivery O2 Flow Rate FiO2 03/30/20 08:20 Room Air 03/30/20 05:07 37.2 88 20 130/85 (100) 95 Capillary Refill : Less Than 3 Seconds General Appearance: No Apparent Distress, WD/WN, Chronically ill HEENT: PERRL/EOMI, Normal ENT Inspection, Pharynx Normal Neck: Full Range of Motion, Normal Inspection, Non Tender, Supple, Carotid Bruit Respiratory: Chest Non Tender, Lungs Clear, Normal Breath Sounds, No Accessory Muscle Use, No Respiratory Distress Cardiovascular: Regular Rate, Rhythm, No Edema, No Gallop, No JVD, No Murmur, Normal Peripheral Pulses Gastrointestinal: Normal Bowel Sounds, No Organomegaly, No Pulsatile Mass, Non Tender, Soft Back: Normal Inspection, No CVA Tenderness, No Vertebral Tenderness Extremity: Normal Capillary Refill, Normal Inspection, Normal Range of Motion (except left side), Non Tender, No Calf Tenderness, No Pedal Edema Neurologic/Psychiatric: Alert, Oriented x3, No Motor/Sensory Deficits, Normal Mood/Affect, Depressed Affect, Facial Droop (left), Motor Weakness (left sided paresis 0/5 flaccid) Skin: Normal Color, Warm/Dry Lymphatic: No Adenopathy Results/Procedures Lab Patient resulted labs reviewed. FIM Transfers Therapy Code Descriptions/Definitions Functional [place] Measure: 0=Not Assessed/NA 4=Minimal Assistance 1=Total Assistance 5=Supervision or Setup 2=Maximal Assistance 6=Modified [place] 3=Moderate Assistance 7=Complete IndependenceSCALE: Activities may be completed with or without assistive devices. 5-Jwmddigdzf-rvecuut completes the activity by him/herself with no assistance from a helper. 5-Set-up or Clean-up Assistance-helper sets up or cleans up; patient completes activity. [place] assists only prior to or following the activity. 4-Supervision or Touching Assistance-helper provides verbal cues and/or touching/steadying and/or contact guard assistance as patient completes activity. Assistance may be provided throughout the activity or intermittently. 3-Partial/Moderate Assistance-helper does LESS THAN HALF the effort. [place] lifts, holds or supports trunk or limbs, but provides less than half the effort. 2-Substantial/Maximal Assistance-helper does MORE THAN HALF the effort. [place] lifts or holds trunk or limbs and provides more than half the effort. 5-Lmcfsljyi-jowvtc does ALL the effort. Patient does none of the effort to co mplete the activity. Or, the assistance of 2 or more helpers is required for the patient to complete the activity. If activity was not attempted, code reason: 7-Patient Refused. 9-Not Applicable-not attempted and the patient did not perform the activity before the current illness, exacerbation or injury. 10-Not Attempted due to Environmental Limitations-(lack of equipment, weather restraints, etc.). 88-Not Attempted due to Medical Conditions or Safety Concerns. Roll Left to Right (QC): 2 Sit to Lying (QC): 1 Sit to Stand (QC): 1 Chair/Mwd-na-Syadm Xfer(QC): 1 Car Transfer (QC): 1 Gait Training Does the Patient Walk?: No and Walking Goal NOT indicated Walk 10 feet (QC): 88 Walk 50 ft with 2 Turns(QC): 88 Walk 150 ft (QC): 88 Walking 10ft/uneven surface-QC: 88 Wheelchair Training Does the Pt Use a Wheelchair?: Yes Distance: 150' Wheel 50 ft with 2 turns (QC): 2 Wheel 150 ft (QC): 2 Type of Wheelchair: Manual Stair Training 1 Step (curb) (QC): 88 4 Steps (QC): 88 12 Steps (QC): 88 Balance Picking up an Object (QC): 88 ADL-Treatment Eating (QC): 2 Oral Hygiene (QC): 2 Bathing Location: Chest, Abdomen, Perineal Area Shower/Bathe Self (QC): 1 (Assist x2 for safety during sitting due to pt's decreased sitting balance.) Upper Body Dressing (QC): 2 Lower Body Dressing (QC): 1 On/Off Footwear (QC): 2 Toileting Hygiene (QC): 1 Toilet Transfer (QC): 1 Assessment/Plan Assessment and Plan Assess & Plan/Chief Complaint Assessment: Catastrophic CVA with left sided flaccidity Left facial droop COVID-19 antibody + Bipolar disorder Autism spectrum Urinary retention Pickett cath in place consulted Dr Drake Plan: IRF protocol Dr Darke consultation Monitor bowel function Fall risk CBD oil (1) Acute right MCA stroke Status: Acute (2) Facial droop due to cerebrovascular accident (CVA) (3) Bipolar disorder (4) Autism spectrum (5) Urinary retention (6) Pickett catheter in place (7) Coronavirus infection, unspecified Status: Chronic (8) Left-sided neglect Status: Acute (9) Dysphasia due to recent cerebrovascular accident (CVA) Status: Acute AIDE GATICA DO Mar 30, 2020 11:11
--- NOTE | 2020-03-30 11:20 | NUR ---
PATIENT TRANSFERRED VIA ROBERTA LIFT FROM BED TO CHAIR. PATIENT USED THE BEDPAN EARLIER IN THE DAY. PATIENT ABLE TO MOVE RIGHT SIDE AND ASSIST. PATIENT IS UP IN CHAIR AT THIS TIME WITH A VISITOR AT BEDSIDE. REPORTS PAIN A 6/10, WHEN QUESTIONED REGARDING PAIN MANAGEMENT, HE STATES, "I AM GOOD." CONT TO MONITOR.
--- NOTE | 2020-03-30 14:30 | Cardiology Progress Note ---
Cardiology SOAP Progress Note Subjective: No cardiac complaints. Objective: I&O/Vital Signs 03/30/20 03/30/20 05:07 08:20 Temp 37.2 Pulse 88 Resp 20 B/P (MAP) 130/85 (100) Pulse Ox 95 O2 Delivery Room Air Room Air 03/30/20 00:00 Intake Total 600 ml Output Total 475 ml Balance 125 ml Constitutional: AAO x 3, PERRL, well-developed, well-nourished Respiratory: chest is bilaterally symmetric, lungs clear to auscultation Cardiovascular: regular rate-rhythm, S1 and S2 Gastrointestional: soft, audible bowel sounds Extremities: normal range of motion, non-tender, normal inspection, no lower extremity edema bilateral Neurologic/Psychiatric: no motor/sensory deficits, alert, normal mood/affect, oriented x 3 Skin: normal color, warm/dry A/P: Assessment/Dx: Cryptogenic stroke Plan: Cryptogenic stroke, negative carotids. Telemetry over 48 hours was negative for atrial fibrillation. Echocardiogram showed normal LV function with no wall motion abnormalities. Negative bubble study ruled out significant intracardiac shunting. Long-term surveillance of atrial fibrillation is recommended. Implantable loop recorder was done. DC telemetry. Continue full dose aspirin. Thank you for your consultation. Please call me if you have any questions. Tiesha Arevalo MD, FACP, FACC, FSCAI, FHRS, CCDS Interventional Cardiology Cardiac Electrophysiology Vascular Medicine and Endovascular Interventions Shaggy AREVALO MD Mar 30, 2020 14:30
[2020-03-30 16:00] VITALS: BP 130/73
[2020-03-30] MEDS: ENOXAPARIN 40 MG/0.4 ML (LOVENOX) SYR SC SCH (17:16)
[2020-03-30] MEDS: TAMSULOSIN 0.4 MG (FLOMAX) CAP PO SCH (17:16)
[2020-03-30] MEDS: SERTRALINE 50 MG (ZOLOFT) TABLET PO SCH (21:34)
[2020-03-31] MEDS: HYDROcodone/APAP 5 MG/325 MG (LORTAB) TAB PO PRN ×4 (01:38→20:55)
[2020-03-31] MEDS: ACETAMINOPHEN 325 MG TABLET PO PRN (02:35)
[2020-03-31 05:16] VITALS: BP 159/81
[2020-03-31] MEDS: AUGMENTIN 875 MG TAB (AMOXICILLIN/CLAVULANATE) PO SCH ×2 (08:39→17:56)
[2020-03-31] MEDS: ASPIRIN 325 MG (5 GR) TABLET PO SCH (08:39)
[2020-03-31] MEDS: DOCUSATE SODIUM 100 MG (COLACE) CAP PO SCH ×2 (08:40→19:35)
[2020-03-31] MEDS: SENNA W/DOCUSATE (SENOKOT S) TABLET PO SCH ×2 (08:40→19:35)
[2020-03-31] MEDS: polyethylene glycoL POWDER 17 GM (MIRALAX) PACK PO SCH ×2 (08:40→19:35)
--- NOTE | 2020-03-31 11:51 | PM&R Progress Note ---
Subjective HPI/CC On Admission Date Seen by Provider: Mar 31, 2020 Time Seen by Provider: 16:00 Subjective/Events-last exam Flaccidity remains on the left side Had a good night rest Father's is Wednesday, catheter will remain in until after he comes back from Flomax started by Dr Drake Wednesday and tolerated well Takes pills ok without dysphagia no aspiration noted Had some urinary retention at home chronically so likely this will be a challenge to void after cath DC Left neck pain reported so will initiated pain meds and K-pad which is helpful Left heel blister noted Aleven placed on that and that was from shoes that rubbed on his heel Loose BM's holding laxatives Checked meds and labs Conferred wtih RN Reviewed therapy notes Mehnaz life rather than sit to stand will remain for now Review of Systems General: Fatigue, Malaise Neurological: Weakness, Numbness, Incoordination Objective Exam Vital Signs Vital Signs Date Time Temp Pulse Resp B/P (MAP) Pulse Ox O2 Delivery O2 Flow Rate FiO2 04/01/20 05:10 36.0 92 20 153/87 (109) 96 Room Air Capillary Refill : Less Than 3 Seconds General Appearance: No Apparent Distress, WD/WN, Chronically ill HEENT: PERRL/EOMI, Normal ENT Inspection, Pharynx Normal Neck: Full Range of Motion, Normal Inspection, Non Tender, Supple, Carotid Bruit Respiratory: Chest Non Tender, Lungs Clear, Normal Breath Sounds, No Accessory Muscle Use, No Respiratory Distress Cardiovascular: Regular Rate, Rhythm, No Edema, No Gallop, No JVD, No Murmur, Normal Peripheral Pulses Gastrointestinal: Normal Bowel Sounds, No Organomegaly, No Pulsatile Mass, Non Tender, Soft Back: Normal Inspection, No CVA Tenderness, No Vertebral Tenderness Extremity: Normal Capillary Refill, Normal Inspection, Normal Range of Motion (except left side), Non Tender, No Calf Tenderness, No Pedal Edema Neurologic/Psychiatric: Alert, Oriented x3, No Motor/Sensory Deficits, Normal Mood/Affect, Depressed Affect, Facial Droop (left), Motor Weakness (left sided paresis 0/5 flaccid) Skin: Normal Color, Warm/Dry Lymphatic: No Adenopathy Results/Procedures Lab Laboratory Tests 04/01/20 05:05 Patient resulted labs reviewed. FIM Transfers Therapy Code Descriptions/Definitions Functional [place] Measure: 0=Not Assessed/NA 4=Minimal Assistance 1=Total Assistance 5=Supervision or Setup 2=Maximal Assistance 6=Modified [place] 3=Moderate Assistance 7=Complete IndependenceSCALE: Activities may be completed with or without assistive devices. 3-Fkcouhddnm-gvvuuib completes the activity by him/herself with no assistance from a helper. 5-Set-up or Clean-up Assistance-helper sets up or cleans up; patient completes activity. [place] assists only prior to or following the activity. 4-Supervision or Touching Assistance-helper provides verbal cues and/or touching/steadying and/or contact guard assistance as patient completes activity. Assistance may be provided throughout the activity or intermittently. 3-Partial/Moderate Assistance-helper does LESS THAN HALF the effort. [place] lifts, holds or supports trunk or limbs, but provides less than half the effort. 2-Substantial/Maximal Assistance-helper does MORE THAN HALF the effort. [place] lifts or holds trunk or limbs and provides more than half the effort. 5-Xhecovctz-wuwjth does ALL the effort. Patient does none of the effort to complete the activity. Or, the assistance of 2 or more helpers is required for the patient to complete the activity. If activity was not attempted, code reason: 7-Patient Refused. 9-Not Applicable-not attempted and the patient did not perform the activity before the current illness, exacerbation or injury. 10-Not Attempted due to Environmental Limitations-(lack of equipment, weather restraints, etc.). 88-Not Attempted due to Medical Conditions or Safety Concerns. Roll Left to Right (QC): 2 Sit to Lying (QC): 1 Sit to Stand (QC): 1 Chair/Qbf-ri-Mjesk Xfer(QC): 1 Car Transfer (QC): 1 Gait Training Does the Patient Walk?: No and Walking Goal NOT indicated Walk 10 feet (QC): 88 Walk 50 ft with 2 Turns(QC): 88 Walk 150 ft (QC): 88 Walking 10ft/uneven surface-QC: 88 Wheelchair Training Does the Pt Use a Wheelchair?: Yes Distance: 150' Wheel 50 ft with 2 turns (QC): 2 Wheel 150 ft (QC): 2 Type of Wheelchair: Manual Stair Training 1 Step (curb) (QC): 88 4 Steps (QC): 88 12 Steps (QC): 88 Balance Picking up an Object (QC): 88 ADL-Treatment Eating (QC): 2 Oral Hygiene (QC): 2 Bathing Location: Chest, Abdomen, Perineal Area Shower/Bathe Self (QC): 1 (Assist x2 for safety during sitting due to pt's decreased sitting balance.) Upper Body Dressing (QC): 2 Lower Body Dressing (QC): 1 On/Off Footwear (QC): 2 Toileting Hygiene (QC): 1 Toilet Transfer (QC): 1 Assessment/Plan Assessment and Plan Assess & Plan/Chief Complaint Assessment: Catastrophic CVA with left sided flaccidity Left facial droop COVID-19 antibody + Bipolar disorder Autism spectrum Urinary retention Pickett cath in place consulted Dr Drake Plan: IRF protocol Dr Drake consultation Monitor bowel function Fall risk CBD oil Mehnaz lift (1) Acute right MCA stroke Status: Acute (2) Facial droop due to cerebrovascular accident (CVA) (3) Bipolar disorder (4) Autism spectrum (5) Urinary retention (6) Pickett catheter in place (7) Coronavirus infection, unspecified Status: Chronic (8) Left-sided neglect Status: Acute (9) Dysphasia due to recent cerebrovascular accident (CVA) Status: Acute AIDE GATICA DO Mar 31, 2020 11:51
[2020-03-31] MEDS: PATCH REMOVAL TP SCH (13:21)
--- NOTE | 2020-03-31 14:14 | Cardiology Progress Note ---
Cardiology SOAP Progress Note Subjective: Denies shortness of breath or chest pain. Objective: I&O/Vital Signs 03/31/20 03/31/20 05:16 09:00 Temp 36.0 Pulse 85 Resp 20 B/P (MAP) 159/81 (107) Pulse Ox 96 O2 Delivery Room Air Room Air 03/31/20 00:00 Intake Total 800 ml Output Total 750 ml Balance 50 ml Constitutional: AAO x 3, PERRL, well-developed, well-nourished Respiratory: chest is bilaterally symmetric, lungs clear to auscultation Cardiovascular: regular rate-rhythm, S1 and S2 Gastrointestional: soft, audible bowel sounds Extremities: normal range of motion, non-tender, normal inspection, no lower extremity edema bilateral Neurologic/Psychiatric: no motor/sensory deficits, alert, normal mood/affect, oriented x 3 Skin: normal color, warm/dry A/P: Assessment/Dx: Cryptogenic stroke Plan: Cryptogenic stroke, negative carotids. Telemetry over 48 hours was negative for atrial fibrillation. Echocardiogram showed normal LV function with no wall motion abnormalities. Negative bubble study ruled out significant intracardiac shunting. Long-term surveillance of atrial fibrillation is recommended. Implantable loop recorder was done. DC telemetry. Continue full dose aspirin. Thank you for your consultation. Please call me if you have any questions. Tiesha Arevalo MD, FACP, FACC, FSCAI, FHRS, CCDS Interventional Cardiology Cardiac Electrophysiology Vascular Medicine and Endovascular Interventions Shaggy AREVALO MD Mar 31, 2020 14:14
[2020-03-31 17:08] VITALS: BP 139/73
[2020-03-31] MEDS: TAMSULOSIN 0.4 MG (FLOMAX) CAP PO SCH (17:56)
[2020-03-31] MEDS: ENOXAPARIN 40 MG/0.4 ML (LOVENOX) SYR SC SCH (17:56)
[2020-03-31] MEDS: SERTRALINE 50 MG (ZOLOFT) TABLET PO SCH (20:55)
[2020-04-01] MEDS: HYDROcodone/APAP 5 MG/325 MG (LORTAB) TAB PO PRN ×5 (02:14→23:19)
[2020-04-01 05:10] VITALS: BP 153/87
[2020-04-01 05:52] LABS: BASOPHILS % (AUTO) 0 % (0-10); EOSINOPHILS # (AUTO) 0.2 10^3/uL (0.0-0.3); EOSINOPHILS % (AUTO) 2 % (0-10); HEMATOCRIT 40 % (40-54); LYMPHOCYTES # (AUTO) 1.6 X 10^3 (1.0-4.0); LYMPHOCYTES % (AUTO) 15 % (12-44); MEAN CORPUSCULAR HEMOGLOBIN 29 PG (25-34); MEAN CORPUSCULAR HGB CONC 33 G/DL (32-36); MEAN CORPUSCULAR VOLUME 90 FL (80-99); MEAN PLATELET VOLUME 11.2 FL (7.4-10.4); MONOCYTES # (AUTO) 0.7 X 10^3 (0.0-1.0); MONOCYTES % (AUTO) 6 % (0-12); NEUTROPHILS # (AUTO) 8.7 X 10^3 (1.8-7.8); NEUTROPHILS % (AUTO) 77 % (42-75); PLATELET COUNT 232 10^3/uL (130-400); RED CELL DISTRIBUTION WIDTH 12.7 % (10.0-14.5); WHITE BLOOD COUNT 11.2 10^3/uL (4.3-11.0)
[2020-04-01 06:10] LABS: ALBUMIN 3.7 GM/DL (3.2-4.5); CHLORIDE 103 MMOL/L (98-107); POTASSIUM 4.2 MMOL/L (3.6-5.0); SODIUM 139 MMOL/L (135-145)
[2020-04-01 06:11] LABS: CALCIUM 9.1 MG/DL (8.5-10.1)
[2020-04-01 06:12] LABS: GLUCOSE 126 MG/DL (70-105); TOTAL PROTEIN 7.2 GM/DL (6.4-8.2)
[2020-04-01 06:13] LABS: CARBON DIOXIDE 24 MMOL/L (21-32)
[2020-04-01 06:14] LABS: BILIRUBIN,TOTAL 0.6 MG/DL (0.1-1.0)
[2020-04-01 06:16] LABS: ALKALINE PHOSPHATASE 67 U/L (40-136); CREATININE SERUM 0.69 MG/DL (0.60-1.30); GFR ESTIMATED > 60
[2020-04-01 06:17] LABS: BUN/CREATININE RATIO 33
[2020-04-01 06:19] LABS: ALANINE AMINOTRANSFERASE 60 U/L (0-55)
[2020-04-01 06:40] LABS: EOSINOPHILS % (MANUAL) 3 %; LYMPHOCYTES % (MANUAL) 13 %; MONOCYTES % (MANUAL) 5 %; NEUTROPHILS % (MANUAL) 78 %
[2020-04-01 06:41] LABS: HYPOCHROMASIA SLIGHT; METAMYELOCYTES % 1 %
--- NOTE | 2020-04-01 06:44 | PM&R Progress Note ---
Subjective HPI/CC On Admission Date Seen by Provider: Apr 01, 2020 Time Seen by Provider: 10:00 Subjective/Events-last exam Took a Lortab this morning for back pain Mehnaz Lift since tfg-ga-uvctn is no longer an option Last BM was two days ago and loose No tone or strength on the left side, no shoulder shrug, and no flexion Catastrophic stroke Checked meds and labs Conferred wtih RN Reviewed therapy notes Mehnaz life rather than sit to stand will remain for now Review of Systems General: Fatigue, Malaise Musculoskeletal: back pain Objective Exam Vital Signs Vital Signs Date Time Temp Pulse Resp B/P (MAP) Pulse Ox O2 Delivery O2 Flow Rate FiO2 04/01/20 18:02 36.3 93 20 148/79 (102) 100 Room Air Capillary Refill : Less Than 3 Seconds General Appearance: No Apparent Distress, WD/WN, Chronically ill HEENT: PERRL/EOMI, Normal ENT Inspection, Pharynx Normal Neck: Full Range of Motion, Normal Inspection, Non Tender, Supple, Carotid Bruit Respiratory: Chest Non Tender, Lungs Clear, Normal Breath Sounds, No Accessory Muscle Use, No Respiratory Distress Cardiovascular: Regular Rate, Rhythm, No Edema, No Gallop, No JVD, No Murmur, Normal Peripheral Pulses Gastrointestinal: Normal Bowel Sounds, No Organomegaly, No Pulsatile Mass, Non Tender, Soft Back: Normal Inspection, No CVA Tenderness, No Vertebral Tenderness Extremity: Normal Capillary Refill, Normal Inspection, Normal Range of Motion (except left side), Non Tender, No Calf Tenderness, No Pedal Edema Neurologic/Psychiatric: Alert, Oriented x3, No Motor/Sensory Deficits, Normal Mood/Affect, Depressed Affect, Facial Droop (left), Motor Weakness (left sided paresis 0/5 flaccid) Skin: Normal Color, Warm/Dry Lymphatic: No Adenopathy Results/Procedures Lab Laboratory Tests 04/01/20 05:05 Patient resulted labs reviewed. FIM Transfers Therapy Code Descriptions/Definitions Functional [place] Measure: 0=Not Assessed/NA 4=Minimal Assistance 1=Total Assistance 5=Supervision or Setup 2=Maximal Assistance 6=Modified [place] 3=Moderate Assistance 7=Complete IndependenceSCALE: Activities may be completed with or without assistive devices. 1-Rredxsincr-avlsqad completes the activity by him/herself with no assistance from a helper. 5-Set-up or Clean-up Assistance-helper sets up or cleans up; patient completes activity. [place] assists only prior to or following the activity. 4-Supervision or Touching Assistance-helper provides verbal cues and/or touching/steadying and/or contact guard assistance as patient completes activity. Assistance may be provided throughout the activity or intermittently. 3-Partial/Moderate Assistance-helper does LESS THAN HALF the effort. [place] lifts, holds or supports trunk or limbs, but provides less than half the effort. 2-Substantial/Maximal Assistance-helper does MORE THAN HALF the effort. [place] lifts or holds trunk or limbs and provides more than half the effort. 2-Ylpobytsv-ddwwzf does ALL the effort. Patient does none of the effort to complete the activity. Or, the assistance of 2 or more helpers is required for the patient to complete the activity. If activity was not attempted, code reason: 7-Patient Refused. 9-Not Applicable-not attempted and the patient did not perform the activity before the current illness, exacerbation or injury. 10-Not Attempted due to Environmental Limitations-(lack of equipment, weather restraints, etc.). 88-Not Attempted due to Medical Conditions or Safety Concerns. Roll Left to Right (QC): 2 Sit to Lying (QC): 1 Sit to Stand (QC): 1 Chair/Ucx-al-Gbdvv Xfer(QC): 1 Car Transfer (QC): 1 Gait Training Does the Patient Walk?: No and Walking Goal NOT indicated Walk 10 feet (QC): 88 Walk 50 ft with 2 Turns(QC): 88 Walk 150 ft (QC): 88 Walking 10ft/uneven surface-QC: 88 Wheelchair Training Does the Pt Use a Wheelchair?: Yes Distance: 150' Wheel 50 ft with 2 turns (QC): 2 Wheel 150 ft (QC): 2 Type of Wheelchair: Manual Stair Training 1 Step (curb) (QC): 88 4 Steps (QC): 88 12 Steps (QC): 88 Balance Picking up an Object (QC): 88 ADL-Treatment Eating (QC): 2 Oral Hygiene (QC): 2 Bathing Location: Chest, Abdomen, Perineal Area Shower/Bathe Self (QC): 1 (Assist x2 for safety during sitting due to pt's decreased sitting balance.) Upper Body Dressing (QC): 2 Lower Body Dressing (QC): 1 On/Off Footwear (QC): 2 Toileting Hygiene (QC): 1 Toilet Transfer (QC): 1 Assessment/Plan Assessment and Plan Assess & Plan/Chief Complaint Assessment: Catastrophic CVA with left sided flaccidity Left facial droop COVID-19 antibody + Bipolar disorder Autism spectrum Urinary retention Pickett cath in place consulted Dr Drake Plan: IRF protocol Dr Drake consultation Monitor bowel function Fall risk CBD oil Mehnaz lift 04/01/20: Voltaren gel for back pain Lortab for pain Mehnaz lift completely no sit-2-stand ability Flaccid left side continues (1) Acute right MCA stroke Status: Acute (2) Facial droop due to cerebrovascular accident (CVA) (3) Bipolar disorder (4) Autism spectrum (5) Urinary retention (6) Pickett catheter in place (7) Coronavirus infection, unspecified Status: Chronic (8) Left-sided neglect Status: Acute (9) Dysphasia due to recent cerebrovascular accident (CVA) Status: Acute AIDE GATICA DO Apr 01, 2020 06:44
--- NOTE | 2020-04-01 10:15 | Physical Therapy Daily Note ---
PT Daily Note-Current Subjective Patient in bed pre tx, agrees to PT, has unrated back pain during whole tx. Will be co-treating with OT due to poor patient mobility, strength, endurance, sitting and standing balance, left hemiparesis, the need to coordinate UE and LE during activity, decrease risk of falls. Appearance Patient in recliner post tx with nurse call, phone, tray, all needs met, legs elevated, pillow support, in room. Mental Status Patient Orientation: Person, Place, Situation Attachments: Pickett Catheter Transfers SCALE: Activities may be completed with or without assistive devices. 8-Dxhkwoeuqb-wipdbeh completes the activity by him/herself with no assistance from a helper. 5-Set-up or Clean-up Assistance-helper sets up or cleans up; patient completes activity. [place] assists only prior to or following the activity. 4-Supervision or Touching Assistance-helper provides verbal cues and/or touching/steadying and/or contact guard assistance as patient completes activity. Assistance may be provided throughout the activity or intermittently. 3-Partial/Moderate Assistance-helper does LESS THAN HALF the effort. [place] lifts, holds or supports trunk or limbs, but provides less than half the effort. 2-Substantial/Maximal Assistance-helper does MORE THAN HALF the effort. [place] lifts or holds trunk or limbs and provides more than half the effort. 4-Zydqoruqp-tqeznp does ALL the effort. Patient does none of the effort to complete the activity. Or, the assistance of 2 or more helpers is required for the patient to complete the activity. If activity was not attempted, code reason: 7-Patient Refused. 9-Not Applicable-not attempted and the patient did not perform the activity before the current illness, exacerbation or injury. 10-Not Attempted due to Environmental Limitations-(lack of equipment, weather restraints, etc.). 88-Not Attempted due to Medical Conditions or Safety Concerns. Roll Left & Right (QC): 2 Lying to Sitting/Side of Bed(Q: 2 Sit to Stand (QC): 3 Chair/Qpc-vf-Bbpsn Xfer(QC): 2 Mehnaz from bed to WC, patient performed 3 stand pivot transfers with max assist, stand pivot transfer has improved, nursing still needs to use mehnaz but he can now practice stand pivot transfers with therapy safely. Wheelchair Training Does the Pt Use a Wheelchair?: Yes Wheel 50 ft with 2 turns (QC): 2 Wheel 150 ft (QC): 2 Type of Wheelchair: Manual 150'x2 max assist, only used right arm to propel WC Treatments mehnaz transfer from bed to WC, WC mobility training to therapy gym, taken to parallel bars and stood x3 with mod assist, leans to the left side, still pushes but not as much, needs assist with LLE and LUE support, stand pivot transfer to therapy mat, worked on sitting balance side to side and with reaching for cones, sit to stand from elevated mat with LLE support and assist for balance 3 sets of 5, stand pivot transfer back to WC, WC mobiltity training back to room, stand pivot transfer back to recliner. PT worked on bed mobility and transfers, WC mobility, standing, balance training, OT worked on UE positioning and safety dur ing activity, assist with transfers and standing and balance training. Assessment Current Status: Fair Progress improved balance, less pushing PT Short Term Goals Short Term Goals Time Frame: Apr 04, 2020 Roll Left & Right: 3 Sit to lyin Lying to sitting on side of be: 3 Sit to stand: 3 Chair/bus-gx-rqshf transfer: 2 PT Retirement Goals Design Studio Consultant Goals PT Design Studio Consultant Goals Time Frame: Apr 18, 2020 Roll Left & Right (QC): 3 (Pablo) Sit to Lying (QC): 3 (Pablo) Lying-Sitting on Side/Bed(QC): 3 (Pablo) Sit to Stand (QC): 3 (Pablo) Chair/Mnf-vt-Qreyo Xfer(QC): 3 (Pablo) Toilet Transfer (QC): 3 (Pablo) Car Transfer (QC): 3 (mod A) Does the Patient Walk: No and Walking Goal NOT indicated Walk 10 feet (QC): 88 Walk 50ft with 2 Turns (QC): 88 Walk 150 ft (QC): 88 Walking 10ft on Uneven Surface: 88 1 Step (curb) (QC): 88 4 Steps (QC): 88 12 Steps (QC): 88 Picking up an Object (QC): 88 Does the Pt use WC or Scooter?: Yes Wheel 50 feet with 2 turns (QC: 3 (Pablo) Type: Manual Wheel 150 feet: 3 (Pablo) Type: Manual PT Plan Problem List Problem List: Activity Tolerance, Functional Strength, Safety, Balance, Gait, Transfer, Bed Mobility, ROM Treatment/Plan Treatment Plan: Continue Plan of Care Treatment Plan: Bed Mobility, Education, Functional Activity [place], Functional Strength, Group Therapy, Gait, Safety, Therapeutic Exercise, Transfers Treatment Duration: Apr 18, 2020 Frequency: At least 5 of 7 days/Wk (IRF) Estimated Hrs Per Day: 1.5 hours per day Patient and/or Family Agrees t: Yes Safety Risks/Education Patient Education: Transfer Techniques, Correct Positioning, W/C Management, Safety Issues Teaching Recipient: Patient Teaching Methods: Demonstration, Discussion Response to Teaching: Reinforcement Needed Time/GCodes Time In: 0900 Time Out: 1015 Total Billed Treatment Time: 75 Total Billed Treatment 1 visit FA Young' MARK RYAN PT Apr 01, 2020 10:15
--- NOTE | 2020-04-01 10:19 | Occupational Ther Daily Note ---
OT Current Status-Daily Note Subjective Pt alert, lying in bed. present in room. Pt agrees to therapy. Pt c/o back pain during therapy. Mental Status/Objective Patient Orientation: Person, Place, Time, Situation Attachments: Pickett Catheter, IV ADL-Treatment OT/PT co-treat, skills of 2 clinicians required due to pt's medical complexity, dependent transfers, decreased movement, dependent with L UE movement. PT working in standing, sitting balance during functional tasks, strengthening and transfers. OT working on ADLs, L UE placement/positioning during standing/transfers, strengthening. Pt to use sebastien lift for transfers without PT. Pt has L neglect, leans to L and pushes L with R hand. Max A for donning footwear. Therapy Code Descriptions/Definitions Functional [place] Measure: 0=Not Assessed/NA 4=Minimal Assistance 1=Total Assistance 5=Supervision or Setup 2=Maximal Assistance 6=Modified [place] 3=Moderate Assistance 7=Complete IndependenceSCALE: Activities may be completed with or without assistive devices. 8-Dbswtfhwzw-pfbklkq completes the activity by him/herself with no assistance from a helper. 5-Set-up or Clean-up Assistance-helper sets up or cleans up; patient completes activity. [place] assists only prior to or following the activity. 4-Supervision or Touching Assistance-helper provides verbal cues and/or touching/steadying and/or contact guard assistance as patient completes activity. Assistance may be provided throughout the activity or intermittently. 3-Partial/Moderate Assistance-helper does LESS THAN HALF the effort. [place] lifts, holds or supports trunk or limbs, but provides less than half the effort. 2-Substantial/Maximal Assistance-helper does MORE THAN HALF the effort. [place] lifts or holds trunk or limbs and provides more than half the effort. 9-Nqodageps-uwplrr does ALL the effort. Patient does none of the effort to complete the activity. Or, the assistance of 2 or more helpers is required for the patient to complete the activity. If activity was not attempted, code reason: 7-Patient Refused. 9-Not Applicable-not attempted and the patient did not perform the activity before the current illness, exacerbation or injury. 10-Not Attempted due to Environmental Limitations-(lack of equipment, weather restraints, etc.). 88-Not Attempted due to Medical Conditions or Safety Concerns. On/Off Footwear: 2 Other Treatment See PT notes for progress on transfers and standing. Increased tone of L UE at beginning of session, with stretch and wt bearing during functional tasks tone decreased. Reflexive tone noted during session though no functional movement at this time. Pt impulsive and requires straight forward directional cueing. PT completing SPT assist x2, nrsg to use sebastien at other times. Assist x2 for sitting balance. Working on dynamic sitting balance on mat table then sit to stands from higher surface with chair in front of pt for pull to stand. 5 sit to stands with parallel bars, assist x2. After session, pt sitting in recliner with call light/phone in reach. All needs met in room. present in room. OT Short Term Goals Short Term Goals Time Frame: Apr 11, 2020 Eatin Oral hygiene: 3 Toileting hygiene: 3 Shower/bathe self: 2 Upper body dressin Lower body dressin Putting on/taking off footwear: 2 OT Custodial Goals Clinical Documentation Clerk Goals Time Frame: Apr 25, 2020 Eating (QC): 4 Oral Hygiene (QC): 4 Toileting Hygiene (QC): 3 Shower/Bathe Self (QC): 3 Upper Body Dressing (QC): 4 Lower Body Dressing (QC): 4 On/Off Footwear (QC): 4 Additional Goals: 1-Demonstrate ADL Tasks, 2-Verbalize Understanding, 3- ImproveStrength/[place] 1=Demonstrate adherence to instructed precautions during ADL tasks. 2=Patient will verbalize/demonstrate understanding of assistive devices/modifications for ADL. 3=Patient will improve strength/tolerance for activity to enable patient to perform ADL's. OT Education/Plan Problem List/Assessment Assessment: Decreased Activ Tolerance, Decreased Safety Aware, Decreased UE Strength, Dependent Transfers, Impaired Bed Mobility, Impaired Cognition, Impaired Coordination, Impaired Funct Balance, Impaired I ADL's, Impaired Self- Care Skills, Restricted Funct UE ROM, Visual-Perceptual Deficit (L neglect) Discharge Recommendations Plan/Recommendations: Continue POC Treatment Plan/Plan of Care Patient would benefit from OT for education, treatment and training to promote independence in ADL's, mobility, safety and/or upper extremity function for ADL's. Plan of Care: ADL Retraining, Functional Mobility, UE Funct Exercise/Act, UE Neuromus Re-Ed/Coord, Visual/Perceptual Retrain Treatment Duration: Apr 25, 2020 Frequency: At least 5 of 7 days/Wk (IRF) Estimated Hrs Per Day: 1.5 hours per day Agreement: Yes Rehab Potential: Good Time/GCodes Start Time: 09:00 Stop Time: 10:15 Total Time Billed (hr/min): 75 Billed Treatment Time 1 visit-ADL 1 (15 min) FA 1 (20 min) NM 3 (40 min) Co-treat with PT [id number] (75 min) JOSIAH ESCALANTE Apr 01, 2020 10:19
[2020-04-01] MEDS: SENNA W/DOCUSATE (SENOKOT S) TABLET PO SCH ×2 (10:28→21:40)
[2020-04-01] MEDS: polyethylene glycoL POWDER 17 GM (MIRALAX) PACK PO SCH ×2 (10:28→21:40)
[2020-04-01] MEDS: DOCUSATE SODIUM 100 MG (COLACE) CAP PO SCH ×2 (10:28→21:40)
[2020-04-01] MEDS: AUGMENTIN 875 MG TAB (AMOXICILLIN/CLAVULANATE) PO SCH ×2 (10:33→17:16)
[2020-04-01] MEDS: ASPIRIN 325 MG (5 GR) TABLET PO SCH (10:33)
[2020-04-01 10:45] VITALS: BP 146/77
--- NOTE | 2020-04-01 14:27 | Cardiology Progress Note ---
Cardiology SOAP Progress Note Subjective: No acute cardiac complaints. Objective: I&O/Vital Signs 04/01/20 04/01/20 05:10 10:45 Temp 36.0 Pulse 92 88 Resp 20 B/P (MAP) 153/87 (109) 146/77 (100) Pulse Ox 96 96 O2 Delivery Room Air Room Air 04/01/20 00:00 Intake Total 800 ml Output Total 950 ml Balance -150 ml Constitutional: AAO x 3, PERRL, well-developed, well-nourished Respiratory: chest is bilaterally symmetric, lungs clear to auscultation Cardiovascular: regular rate-rhythm, S1 and S2 Gastrointestional: soft, audible bowel sounds Extremities: normal range of motion, non-tender, normal inspection, no lower extremity edema bilateral Neurologic/Psychiatric: no motor/sensory deficits, alert, normal mood/affect, oriented x 3 Skin: normal color, warm/dry Results/Procedures: Labs Laboratory Tests 04/01/20 05:05: White Blood Count 11.2H, Red Blood Count 4.46, Hemoglobin 13.0L, Hematocrit 40, Mean Corpuscular Volume 90, Mean Corpuscular Hemoglobin 29, Mean Corpuscular Hemoglobin Concent 33, Red Cell Distribution Width 12.7, Platelet Count 232, Mean Platelet Volume 11.2H, Neutrophils (%) (Auto) 77H, Lymphocytes (%) (Auto) 15, Monocytes (%) (Auto) 6, Eosinophils (%) (Auto) 2, Basophils (%) (Auto) 0, Neutrophils # (Auto) 8.7H, Lymphocytes # (Auto) 1.6, Monocytes # (Auto) 0.7, Eosinophils # (Auto) 0.2, Basophils # (Auto) 0.0, Neutrophils % (Manual) 78, Lymphocytes % (Manual) 13, Monocytes % (Manual) 5, Eosinophils % (Manual) 3, Metamyelocytes % 1, Hypochromasia SLIGHT, Sodium Level 139, Potassium Level 4.2, Chloride Level 103, Carbon Dioxide Level 24, Anion Gap 12, Blood Urea Nitrogen 23H, Creatinine 0.69, Estimat Glomerular Filtration Rate > 60, BUN/Creatinine Ratio 33, Glucose Level 126H, Calcium Level 9.1, Corrected Calcium 9.3, Total Bilirubin 0.6, Aspartate Amino Transf (AST/SGOT) 55H, Alanine Aminotransferase (ALT/SGPT) 60H, Alkaline Phosphatase 67, Total Protein 7.2, Albumin 3.7 A/P: Assessment/Dx: Cryptogenic stroke Plan: Cryptogenic stroke, negative carotids. Telemetry over 48 hours was negative for atrial fibrillation. Echocardiogram showed normal LV function with no wall motion abnormalities. Negative bubble study ruled out significant intracardiac shunting. Long-term surveillance of atrial fibrillation is recommended. Implantable loop recorder was done. DC telemetry. Continue full dose aspirin. Thank you for your consultation. Please call me if you have any questions. Tiesha Arevalo MD, FACP, FACC, FSCAI, FHRS, CCDS Interventional Cardiology Cardiac Electrophysiology Vascular Medicine and Endovascular Interventions Shaggy AREVALO MD Apr 01, 2020 14:27
--- NOTE | 2020-04-01 14:55 | Speech Therapy Daily Note ---
Speech Daily Progress Note Subjective Date Seen by Provider: Apr 01, 2020 Time Seen by Provider: 00:30 Patient was sitting upright in his bed eating breakfast when I entered his room. Objective Patient utilizes alternating food:drink of 2:1 with verbal cues, small sips/bites with 10% cues for intake. Assessment Assessment Current Status: Good Progress Treatment Plan Continue Plan of Care Speech Short Term Goals Short Term Goals Short Term Goals 1) Patient will complete memory tasks related to his daily needs at 90% or greater with minimal cues. 2) Patient will complete safety awareness tasks related to his daily needs at 90% or greater with minimal cues. 3) Patient will complete problem solving tasks related to his daily needs at 90% or greater with minimal cues. 4) Patient will tolerate least restrictive diet level without s/s of aspiration at 90% or greater. 5) Patient/caregiver will utilize compensatory strategies as trained at 90% or greater with minimal cues. Speech Assisted Goals Assisted Goals Patient will improve cognitive-communication necessary for safety and daily living tasks with minimal assist. Patient will maintain adequate nutrition/hydration via safe effective swallow function. Speech-Plan Patient/Family Goals Patient/Family Goals: Patient plans on returning to his home where he lives with his upon discharge. Treatment Plan Speech Therapy Treatment Plan: Continue Plan of Care Treatment Duration: Apr 05, 2020 Frequency: 5 times per week Estimated Hrs Per Day: .5 hour per day Rehab Potential: Good Barriers to Learning: Patient's recent CVA Pt/Family Agrees to Plan: Yes Safety Risks/Education Teaching Recipient: Patient Teaching Methods: Demonstration, Discussion Response to Teaching: Verbalize Understanding, Return Demonstration Education Topics Provided: Continued safety with oral intake Time Speech Therapy Time In: 08:00 Speech Therapy Time Out: 08:30 Total Billed Time: 30 Billed Treatment Time 1, BRIAN Armas Apr 01, 2020 14:55
--- NOTE | 2020-04-01 15:59 | NUR ---
CM/SS CONCURRENT DOCUMENTATION Patient have been approved for a day pass to attend his father's tomorrow at [facility]. His spouse has coordinated transportation in a wheelchair van, patient will be situated in an ARU wheelchair for the outing. Patient and spouse signed a release of liability for [employer] regarding this short outing off the unit, copy to them, original in unit chart. Communication Board updated as well as ARU respiratory therapy instructor as it pertains to patient's absent from therapy schedule.
[2020-04-01] MEDS: TAMSULOSIN 0.4 MG (FLOMAX) CAP PO SCH (17:16)
[2020-04-01] MEDS: ENOXAPARIN 40 MG/0.4 ML (LOVENOX) SYR SC SCH (17:20)
[2020-04-01 18:02] VITALS: BP 148/79
[2020-04-01] MEDS: DICLOFENAC 1% GEL 100 GM (VOLTAREN) TUBE TOP PRN (18:53)
[2020-04-01] MEDS: SERTRALINE 50 MG (ZOLOFT) TABLET PO SCH (21:40)
[2020-04-02 06:00] VITALS: BP 140/91
[2020-04-02] MEDS: DOCUSATE SODIUM 100 MG (COLACE) CAP PO SCH ×2 (07:38→21:22)
[2020-04-02] MEDS: AUGMENTIN 875 MG TAB (AMOXICILLIN/CLAVULANATE) PO SCH (07:38)
[2020-04-02] MEDS: ASPIRIN 325 MG (5 GR) TABLET PO SCH (07:38)
[2020-04-02] MEDS: SENNA W/DOCUSATE (SENOKOT S) TABLET PO SCH ×2 (07:38→21:22)
[2020-04-02] MEDS: HYDROcodone/APAP 5 MG/325 MG (LORTAB) TAB PO PRN ×4 (07:38→21:23)
[2020-04-02] MEDS: DICLOFENAC 1% GEL 100 GM (VOLTAREN) TUBE TOP PRN (07:41)
[2020-04-02] MEDS: polyethylene glycoL POWDER 17 GM (MIRALAX) PACK PO SCH ×2 (07:42→20:46)
--- NOTE | 2020-04-02 09:57 | NUR ---
Pt left per w/c to w/c van delia by , & estefanía perry who is personal friend of pt & to attend fathers' . Addendum: 04/02/20 at 1000 by TEA MAYERS RN PT ACTUALLY LEFT PREMISES AT 0918.
--- NOTE | 2020-04-02 10:01 | Occupational Ther Daily Note ---
OT Current Status-Daily Note Subjective Pt alert, finishing up breakfast in bed. Pt agrees to therapy. C/o back pain, nrsg aware and gave medication. Mental Status/Objective Patient Orientation: Person, Place, Time, Situation ADL-Treatment Pt agrees to shower. Attempted use of sit to stand, assist x3 to use to transfer from bed to shower chair with cutout. Pt required cues throughout treatment to lean toward R side, pushing/leaning to L side. Assist x2 to shower using shower chair with cutout, hand held shower. Pt pushed hips to R side of chair and leaning hard to L side. Assist x3, for safety, to SPT from shower chair to EOB. Pt then sat EOB with cues to sit at midline, assist x2 for safety. Max A to don/doff shirt. Assist x2 to don/doff pants in supine. Max A to don/doff footwear. After set up, pt able to complete oral care. Therapy Code Descriptions/Definitions Functional [place] Measure: 0=Not Assessed/NA 4=Minimal Assistance 1=Total Assistance 5=Supervision or Setup 2=Maximal Assistance 6=Modified [place] 3=Moderate Assistance 7=Complete IndependenceSCALE: Activities may be completed with or without assistive devices. 6-Hujtydkkmj-bgimqfj completes the activity by him/herself with no assistance from a helper. 5-Set-up or Clean-up Assistance-helper sets up or cleans up; patient completes activity. [place] assists only prior to or following the activity. 4-Supervision or Touching Assistance-helper provides verbal cues and/or touching/steadying and/or contact guard assistance as patient completes activity. Assistance may be provided throughout the activity or intermittently. 3-Partial/Moderate Assistance-helper does LESS THAN HALF the effort. [place] lifts, holds or supports trunk or limbs, but provides less than half the effort. 2-Substantial/Maximal Assistance-helper does MORE THAN HALF the effort. [place] lifts or holds trunk or limbs and provides more than half the effort. 7-Amqgazdmq-gjbgud does ALL the effort. Patient does none of the effort to complete the activity. Or, the assistance of 2 or more helpers is required for the patient to complete the activity. If activity was not attempted, code reason: 7-Patient Refused. 9-Not Applicable-not attempted and the patient did not perform the activity before the current illness, exacerbation or injury. 10-Not Attempted due to Environmental Limitations-(lack of equipment, weather restraints, etc.). 88-Not Attempted due to Medical Conditions or Safety Concerns. Eating (QC): 5 (After set up, pt able to use regular utensils to eat.) Oral Hygiene (QC): 5 Shower/Bathe Self (QC): 1 Upper Body Dressing (QC): 2 Lower Body Dressing (QC): 1 On/Off Footwear: 2 Other Treatment OT/PT co-treat ([id number]), skills of 2 clinicians required due to pt's medical complexity, dependent transfers, decreased movement, dependent with L UE/LE movement. PT working in standing, sitting balance during functional tasks, strengthening and transfers. OT working on ADLs, L UE placement/positioning during standing/transfers, strengthening. Pt to use sebastien lift for transfers without PT. Pt has L neglect, leans to L and pushes L with R hand. Pt demonstrates tightness in L hand and elbow, decreases with wt bearing and stretc meaghan. Movement only noted with flexion reflex, ie sneezing, yawning. Pt is demonstrating progress with sit to stands, verbal/physical cues required for L side weakness. Pt able to grasp parallel bars through reflexes, stabilization at elbow and shldr required. Verbal cues for step by step needed with dynamic sitting tasks to regain balance prior to reaching/grasping cones. Pt working on squat SPT with assist x2. After session, pt sitting in w/c with call light/phone in reach. All needs met in room. Education OT Patient Education: Modified ADL techniques, Safety issues, Transfer techniques Teaching Recipient: Patient Teaching Methods: Demonstration, Discussion Response to Teaching: Verbalize Understanding, Return Demonstration, Reinforcement Needed OT Short Term Goals Short Term Goals Time Frame: Apr 11, 2020 Eatin Oral hygiene: 3 Toileting hygiene: 3 Shower/bathe self: 2 Upper body dressin Lower body dressin Putting on/taking off footwear: 2 OT Reservations And Ticketing Agent Goals Reservations And Ticketing Agent Goals Time Frame: Apr 25, 2020 Eating (QC): 4 Oral Hygiene (QC): 4 Toileting Hygiene (QC): 3 Shower/Bathe Self (QC): 3 Upper Body Dressing (QC): 4 Lower Body Dressing (QC): 4 On/Off Footwear (QC): 4 Additional Goals: 1-Demonstrate ADL Tasks, 2-Verbalize Understanding, 3- ImproveStrength/[place] 1=Demonstrate adherence to instructed precautions during ADL tasks. 2=Patient will verbalize/demonstrate understanding of assistive devices/modifications for ADL. 3=Patient will improve strength/tolerance for activity to enable patient to perform ADL's. OT Education/Plan Problem List/Assessment Assessment: Decreased Activ Tolerance, Decreased Safety Aware, Decreased UE Strength, Dependent Transfers, Impaired Bed Mobility, Impaired Cognition, Impaired Coordination, Impaired Funct Balance, Impaired I ADL's, Impaired Self- Care Skills, Restricted Funct UE ROM, Visual-Perceptual Deficit Discharge Recommendations Plan/Recommendations: Continue POC Treatment Plan/Plan of Care Patient would benefit from OT for education, treatment and training to promote independence in ADL's, mobility, safety and/or upper extremity function for ADL's. Plan of Care: ADL Retraining, Functional Mobility, UE Funct Exercise/Act, UE Neuromus Re-Ed/Coord, Visual/Perceptual Retrain Treatment Duration: Apr 25, 2020 Frequency: At least 5 of 7 days/Wk (IRF) Estimated Hrs Per Day: 1.5 hours per day Agreement: Yes Rehab Potential: Good Time/GCodes Start Time: 07:15 Stop Time: 09:00 Total Time Billed (hr/min): 105 Billed Treatment Time 1 visit-ADL 4 (60 min) NM 3 (45 min) co-treat with PT [id number] (60 min) individual [id number] (45 min) JOSIAH ESCALANTE Apr 02, 2020 10:01
--- NOTE | 2020-04-02 10:23 | PM&R Progress Note ---
Subjective HPI/CC On Admission Date Seen by Provider: Apr 02, 2020 Time Seen by Provider: 10:00 Subjective/Events-last exam Pt went to father's today Pickett catheter will be discontinued in the near future Flomax maintained Pt likely will have neurogenic bladder and unsure if he will have incontinence or retention coming from the catastrophic stroke Voltaren gel has really helped him quite a bit since he is so stiff in the morning Checked meds and labs Conferred with RN Reviewed therapy notes Mehnaz life rather than sit to stand will remain for now Review of Systems General: Fatigue, Malaise Neurological: Weakness, Incoordination Objective Exam Vital Signs Vital Signs Date Time Temp Pulse Resp B/P (MAP) Pulse Ox O2 Delivery O2 Flow Rate FiO2 04/02/20 16:13 36.4 82 18 147/82 (103) 96 Room Air Capillary Refill : Less Than 3 Seconds General Appearance: No Apparent Distress, WD/WN, Chronically ill HEENT: PERRL/EOMI, Normal ENT Inspection, Pharynx Normal Neck: Full Range of Motion, Normal Inspection, Non Tender, Supple, Carotid Bruit Respiratory: Chest Non Tender, Lungs Clear, Normal Breath Sounds, No Accessory Muscle Use, No Respiratory Distress Cardiovascular: Regular Rate, Rhythm, No Edema, No Gallop, No JVD, No Murmur, Normal Peripheral Pulses Gastrointestinal: Normal Bowel Sounds, No Organomegaly, No Pulsatile Mass, Non Tender, Soft Back: Normal Inspection, No CVA Tenderness, No Vertebral Tenderness Extremity: Normal Capillary Refill, Normal Inspection, Normal Range of Motion (except left side), Non Tender, No Calf Tenderness, No Pedal Edema Neurologic/Psychiatric: Alert, Oriented x3, No Motor/Sensory Deficits, Normal Mood/Affect, Depressed Affect, Facial Droop (left), Motor Weakness (left sided paresis 0/5 flaccid) Skin: Normal Color, Warm/Dry Lymphatic: No Adenopathy Results/Procedures Lab Patient resulted labs reviewed. FIM Transfers Therapy Code Descriptions/Definitions Functional [place] Measure: 0=Not Assessed/NA 4=Minimal Assistance 1=Total Assistance 5=Supervision or Setup 2=Maximal Assistance 6=Modified [place] 3=Moderate Assistance 7=Complete IndependenceSCALE: Activities may be completed with or without assistive devices. 4-Jejvbgybhy-xyhcnhr completes the activity by him/herself with no assistance from a helper. 5-Set-up or Clean-up Assistance-helper sets up or cleans up; patient completes activity. [place] assists only prior to or following the activity. 4-Supervision or Touching Assistance-helper provides verbal cues and/or touching/steadying and/or contact guard assistance as patient completes activity. Assistance may be provided throughout the activity or intermittently. 3-Partial/Moderate Assistance-helper does LESS THAN HALF the effort. [place] lifts, holds or supports trunk or limbs, but provides less than half the effort. 2-Substantial/Maximal Assistance-helper does MORE THAN HALF the effort. [place] lifts or holds trunk or limbs and provides more than half the effort. 9-Csvxvthjp-otbhci does ALL the effort. Patient does none of the effort to complete the activity. Or, the assistance of 2 or more helpers is required for the patient to complete the activity. If activity was not attempted, code reason: 7-Patient Refused. 9-Not Applicable-not attempted and the patient did not perform the activity before the current illness, exacerbation or injury. 10-Not Attempted due to Environmental Limitations-(lack of equipment, weather restraints, etc.). 88-Not Attempted due to Medical Conditions or Safety Concerns. Roll Left to Right (QC): 2 Sit to Lying (QC): 1 Sit to Stand (QC): 3 Chair/Avs-ei-Jytcs Xfer(QC): 2 Car Transfer (QC): 1 Gait Training Does the Patient Walk?: No and Walking Goal NOT indicated Walk 10 feet (QC): 88 Walk 50 ft with 2 Turns(QC): 88 Walk 150 ft (QC): 88 Walking 10ft/uneven surface-QC: 88 Wheelchair Training Does the Pt Use a Wheelchair?: Yes Distance: 150' Wheel 50 ft with 2 turns (QC): 2 Wheel 150 ft (QC): 2 Type of Wheelchair: Manual Stair Training 1 Step (curb) (QC): 88 4 Steps (QC): 88 12 Steps (QC): 88 Balance Picking up an Object (QC): 88 ADL-Treatment Eating (QC): 2 Oral Hygiene (QC): 2 Bathing Location: Chest, Abdomen, Perineal Area Shower/Bathe Self (QC): 1 (Assist x2 for safety during sitting due to pt's decreased sitting balance.) Upper Body Dressing (QC): 2 Lower Body Dressing (QC): 1 On/Off Footwear (QC): 2 Toileting Hygiene (QC): 1 Toilet Transfer (QC): 1 Assessment/Plan Assessment and Plan Assess & Plan/Chief Complaint Assessment: Catastrophic CVA with left sided flaccidity Left facial droop COVID-19 antibody + Bipolar disorder Autism spectrum Urinary retention Pickett cath in place consulted Dr Drake Plan: IRF protocol Dr Drake consultation Monitor bowel function Fall risk CBD oil Mehnaz lift 04/01/20: Voltaren gel for back pain Lortab for pain Mehnaz lift completely no sit-2-stand ability Flaccid left side continues 04/02/20: Patient went to father's today Continue Voltaren gel for back pain Sit to stand no longer an option needs Mehnaz lift (1) Acute right MCA stroke Status: Acute (2) Facial droop due to cerebrovascular accident (CVA) (3) Bipolar disorder (4) Autism spectrum (5) Urinary retention (6) Pickett catheter in place (7) Coronavirus infection, unspecified Status: Chronic (8) Left-sided neglect Status: Acute (9) Dysphasia due to recent cerebrovascular accident (CVA) Status: Acute AIDE GATICA DO Apr 02, 2020 10:23
--- NOTE | 2020-04-02 10:53 | Physical Therapy Daily Note ---
PT Daily Note-Current Subjective Patient in WC pre tx, agrees to PT, has no complaints of pain. Will be co- treating with OT due to poor patient mobility, strength, endurance, sitting and standing balance, left hemiparesis, the need to coordinate UE and LE during activity. Appearance Patient in WC post tx at bedside, has nurse call, phone, tray, all needs met. Mental Status Patient Orientation: Person, Place, Situation Attachments: Pickett Catheter Transfers SCALE: Activities may be completed with or without assistive devices. 2-Cvnwcpoiov-loinxtg completes the activity by him/herself with no assistance from a helper. 5-Set-up or Clean-up Assistance-helper sets up or cleans up; patient completes activity. [place] assists only prior to or following the activity. 4-Supervision or Touching Assistance-helper provides verbal cues and/or touching/steadying and/or contact guard assistance as patient completes activity. Assistance may be provided throughout the activity or intermittently. 3-Partial/Moderate Assistance-helper does LESS THAN HALF the effort. [place] lifts, holds or supports trunk or limbs, but provides less than half the effort. 2-Substantial/Maximal Assistance-helper does MORE THAN HALF the effort. [place] lifts or holds trunk or limbs and provides more than half the effort. 6-Jplqcrypc-oermoy does ALL the effort. Patient does none of the effort to comp lete the activity. Or, the assistance of 2 or more helpers is required for the patient to complete the activity. If activity was not attempted, code reason: 7-Patient Refused. 9-Not Applicable-not attempted and the patient did not perform the activity before the current illness, exacerbation or injury. 10-Not Attempted due to Environmental Limitations-(lack of equipment, weather restraints, etc.). 88-Not Attempted due to Medical Conditions or Safety Concerns. Roll Left & Right (QC): 2 Sit to Stand (QC): 3 Chair/Ufb-so-Sgvcx Xfer(QC): 3 sit to stand x3 in parallel bars with mod assist, focus on balance, weight shifting. Transfer to therapy table and worked on sitting balance, reaching for cones. Stood 3 sets of 5 from lower therapy table with max assist for balance. Also training with stand pivot transfers x5 Treatments standing, sit to stands, transfer training, sitting balance training. PT performed standing, transfers, sitting balance training, OT worked on sitting balance also, assisted with UE positioning and safety during activity Assessment Current Status: Poor Progress Slow progress, impulsive PT Short Term Goals Short Term Goals Time Frame: Apr 04, 2020 Roll Left & Right: 3 Sit to lyin Lying to sitting on side of be: 3 Sit to stand: 3 Chair/dpb-jr-eszxz transfer: 2 PT Racking Technician Goals Halfway Goals PT Racking Technician Goals Time Frame: Apr 18, 2020 Roll Left & Right (QC): 3 (Pablo) Sit to Lying (QC): 3 (Pablo) Lying-Sitting on Side/Bed(QC): 3 (Pablo) Sit to Stand (QC): 3 (Pablo) Chair/Wze-eu-Sobjm Xfer(QC): 3 (Pablo) Toilet Transfer (QC): 3 (Pablo) Car Transfer (QC): 3 (mod A) Does the Patient Walk: No and Walking Goal NOT indicated Walk 10 feet (QC): 88 Walk 50ft with 2 Turns (QC): 88 Walk 150 ft (QC): 88 Walking 10ft on Uneven Surface: 88 1 Step (curb) (QC): 88 4 Steps (QC): 88 12 Steps (QC): 88 Picking up an Object (QC): 88 Does the Pt use WC or Scooter?: Yes Wheel 50 feet with 2 turns (QC: 3 (Pablo) Type: Manual Wheel 150 feet: 3 (Pablo) Type: Manual PT Plan Problem List Problem List: Activity Tolerance, Functional Strength, Safety, Balance, Gait, Transfer, Bed Mobility, ROM Treatment/Plan Treatment Plan: Continue Plan of Care Treatment Plan: Bed Mobility, Education, Functional Activity [place], Functional Strength, Group Therapy, Gait, Safety, Therapeutic Exercise, Transfers Treatment Duration: Apr 18, 2020 Frequency: At least 5 of 7 days/Wk (IRF) Estimated Hrs Per Day: 1.5 hours per day Patient and/or Family Agrees t: Yes Safety Risks/Education Patient Education: Transfer Techniques, Correct Positioning, Safety Issues Teaching Recipient: Patient Teaching Methods: Demonstration, Discussion Response to Teaching: Reinforcement Needed Time/GCodes Time In: 0800 Time Out: 0900 Total Billed Treatment Time: 60 Total Billed Treatment 1 visit FA 60' co-treated for the whole 60' MARK RYAN PT Apr 02, 2020 10:53
--- NOTE | 2020-04-02 14:12 | Physical Therapy Daily Note ---
PT Daily Note-Current Subjective Patient in bed pre tx, agrees to PT, has no complaints of pain at rest. Appearance Patient in bed post tx with nurse call, phone, tray, laying on left side with pillow support, in room. Mental Status Patient Orientation: Person, Place, Situation Attachments: [place]ett Catheter Transfers SCALE: Activities may be completed with or without assistive devices. 2-Hcwlqwenll-jxbzcss completes the activity by him/herself with no assistance from a helper. 5-Set-up or Clean-up Assistance-helper sets up or cleans up; patient completes activity. [place] assists only prior to or following the activity. 4-Supervision or Touching Assistance-helper provides verbal cues and/or touching/steadying and/or contact guard assistance as patient completes activity. Assistance may be provided throughout the activity or intermittently. 3-Partial/Moderate Assistance-helper does LESS THAN HALF the effort. [place] lifts, holds or supports trunk or limbs, but provides less than half the effort. 2-Substantial/Maximal Assistance-helper does MORE THAN HALF the effort. [place] lifts or holds trunk or limbs and provides more than half the effort. 8-Xkjmzqpaa-xdckup does ALL the effort. Patient does none of the effort to complete the activity. Or, the assistance of 2 or more helpers is required for the patient to complete the activity. If activity was not attempted, code reason: 7-Patient Refused. 9-Not Applicable-not attempted and the patient did not perform the activity before the current illness, exacerbation or injury. 10-Not Attempted due to Environmental Limitations-(lack of equipment, weather restraints, etc.). 88-Not Attempted due to Medical Conditions or Safety Concerns. Exercises Supine Ex: Ankle pumps, Quad Set, Glut sets, Heel Slides, Short Arc Quads, Straight leg raise, Hip abd/add Supine Reps: 20 (RLE) LLE stretching in all planes Treatments LE exercise and stretching Assessment Current Status: Fair Progress PT Short Term Goals Short Term Goals Time Frame: Apr 04, 2020 Roll Left & Right: 3 Sit to lyin Lying to sitting on side of be: 3 Sit to stand: 3 Chair/eps-ql-sqyvl transfer: 2 PT Commercial Art Instructor Goals Mcfp Goals PT Commercial Art Instructor Goals Time Frame: Apr 18, 2020 Roll Left & Right (QC): 3 (Pablo) Sit to Lying (QC): 3 (Pablo) Lying-Sitting on Side/Bed(QC): 3 (Pablo) Sit to Stand (QC): 3 (Pablo) Chair/Wbi-de-Yauls Xfer(QC): 3 (Pablo) Toilet Transfer (QC): 3 (Pablo) Car Transfer (QC): 3 (mod A) Does the Patient Walk: No and Walking Goal NOT indicated Walk 10 feet (QC): 88 Walk 50ft with 2 Turns (QC): 88 Walk 150 ft (QC): 88 Walking 10ft on Uneven Surface: 88 1 Step (curb) (QC): 88 4 Steps (QC): 88 12 Steps (QC): 88 Picking up an Object (QC): 88 Does the Pt use WC or Scooter?: Yes Wheel 50 feet with 2 turns (QC: 3 (Pablo) Type: Manual Wheel 150 feet: 3 (Pablo) Type: Manual PT Plan Problem List Problem List: Activity Tolerance, Functional Strength, Safety, Balance, Gait, Transfer, Bed Mobility, ROM Treatment/Plan Treatment Plan: Continue Plan of Care Treatment Plan: Bed Mobility, Education, Functional Activity [place], Functional Strength, Group Therapy, Gait, Safety, Therapeutic Exercise, Transfers Treatment Duration: Apr 18, 2020 Frequency: At least 5 of 7 days/Wk (IRF) Estimated Hrs Per Day: 1.5 hours per day Patient and/or Family Agrees t: Yes Safety Risks/Education Patient Education: Correct Positioning, Safety Issues Teaching Recipient: Patient Teaching Methods: Demonstration, Discussion Response to Teaching: Reinforcement Needed Time/GCodes Time In: 1345 Time Out: 1400 Total Billed Treatment Time: 15 Total Billed Treatment 1 visit EX MARK HEART PT Apr 02, 2020 14:12
--- NOTE | 2020-04-02 14:42 | NUR ---
CM/SS CONCURRENT DOCUMENTATION Spoke with patient and his Carole after they returned from the service. Patient stated he had to leave early and come back to hospital due to back pain and that the ride in the individual's van was, in part, bumpy and aggravated his back. Shared sympathy again with patient about his father's , he appeared composed and thankful he got to go. Working on completing Section III of FMLA paperwork re Healthcare Provider.
--- NOTE | 2020-04-02 14:46 | Speech Therapy Daily Note ---
Speech Daily Progress Note Subjective Date Seen by Provider: Apr 02, 2020 Time Seen by Provider: 00:15 Patient seen at bedside this afternoon. Patient's present. Objective Patient consumed afternoon snack without difficulty while utilizing his compensatory strategies as trained with 90% accuracy given verbal reminders to take smaller sips/bites. Assessment Assessment Current Status: Good Progress Treatment Plan Continue Plan of Care Speech Short Term Goals Short Term Goals Short Term Goals 1) Patient will complete memory tasks related to his daily needs at 90% or gre ater with minimal cues. 2) Patient will complete safety awareness tasks related to his daily needs at 90% or greater with minimal cues. 3) Patient will complete problem solving tasks related to his daily needs at 90% or greater with minimal cues. 4) Patient will tolerate least restrictive diet level without s/s of aspiration at 90% or greater. 5) Patient/caregiver will utilize compensatory strategies as trained at 90% or greater with minimal cues. Speech Quality Controller Goals Quality Controller Goals Patient will improve cognitive-communication necessary for safety and daily living tasks with minimal assist. Patient will maintain adequate nutrition/hydration via safe effective swallow function. Speech-Plan Patient/Family Goals Patient/Family Goals: Patient plans on returning to his home where he lives with his and 17 y/o daughter. Treatment Plan Speech Therapy Treatment Plan: Continue Plan of Care Patient continues to progress well with all ST goals. Treatment Duration: Apr 05, 2020 Frequency: 5 times per week Estimated Hrs Per Day: .5 hour per day Rehab Potential: Good Barriers to Learning: Patient's recent CVA residual affects. Pt/Family Agrees to Plan: Yes Safety Risks/Education Teaching Recipient: Patient, Significant Other Teaching Methods: Demonstration, Discussion Response to Teaching: Verbalize Understanding, Return Demonstration Education Topics Provided: Continued safety awareness with all oral intake. Time Speech Therapy Time In: 14:30 Speech Therapy Time Out: 14:45 Total Billed Time: 15 Billed Treatment Time 1, BRIAN Armas Apr 02, 2020 14:46
--- NOTE | 2020-04-02 15:15 | Progress Note - Cardiology ---
Cardiology SOAP Progress Note Subjective: lying in bed Objective: I&O/Vital Signs 04/04/20 04/04/20 05:33 09:22 Temp 36.4 Pulse 85 Resp 20 B/P (MAP) 129/67 (87) Pulse Ox 96 O2 Delivery Room Air Room Air 04/04/20 00:00 Intake Total 600 ml Output Total 750 ml Balance -150 ml Constitutional: AAO x 3, PERRL, well-developed, well-nourished Respiratory: chest is bilaterally symmetric, lungs clear to auscultation Cardiovascular: regular rate-rhythm, S1 and S2 Gastrointestional: soft, audible bowel sounds Extremities: no lower extremity edema bilateral Neurologic/Psychiatric: facial droop (left), other (left sided flaccid) Skin: No rash on exposed areas, No ulcerations on exposed areas Results/Procedures: Labs A/P: Assessment: Cryptogenic stroke - ILR implanted on 03-26-[address] Arevalo Non-occlusive carotid dz, minimal plaque seen on carotid u/s of March 25, 2020 Echocardiogram of March 26, [address] Arevalo: 55-65% showed normal LV function with no wall motion abnormalities. Negative bubble study ruled out significant intracardiac shunting (+) COVID antibody on testing of March 25, 2020 HTN Plan: Continue current medication regimen Monitor lab We have reviewed Dr. Arevalo's notes ELAYNE HIRSCH Apr 02, 2020 15:15
[2020-04-02] MEDS: ENOXAPARIN 40 MG/0.4 ML (LOVENOX) SYR SC SCH (16:09)
[2020-04-02 16:13] VITALS: BP 147/82
--- NOTE | 2020-04-02 16:15 | Progress Note - Cardiology ---
Cardiology SOAP Progress Note Subjective: Does not communicate. Somnolent. by bedside Objective: I&O/Vital Signs 04/02/20 04/02/20 06:00 08:41 Temp 36.5 Pulse 75 Resp 18 B/P (MAP) 140/91 (107) Pulse Ox 96 O2 Delivery Room Air Room Air 04/02/20 00:00 Intake Total 980 ml Output Total 650 ml Balance 330 ml Constitutional: PERRL, well-developed, well-nourished, other (somnolent and non responsive at time of my exam on 04/02/20) Respiratory: chest is bilaterally symmetric, lungs clear to auscultation Cardiovascular: regular rate-rhythm, S1 and S2 Gastrointestional: soft, audible bowel sounds Extremities: no lower extremity edema bilateral Neurologic/Psychiatric: facial droop (left), other (left sided flaccid) Skin: No rash on exposed areas, No ulcerations on exposed areas A/P: Assessment: Cryptogenic stroke - ILR implanted on 03-26-[address] Arevalo Non-occlusive carotid dz, minimal plaque seen on carotid u/s of March 25, 2020 Echocardiogram of March 26, [address] Arevalo: 55-65% showed normal LV function with no wall motion abnormalities. Negative bubble study ruled out significant intracardiac shunting (+) COVID antibody on testing of March 25, 2020 HTN Plan: I examined him and reviewed his records. Tiki Encranacion APRN interviewed and examined him earlier today Continue current medication regimen Monitor lab ISABELL BEATTY MD FACP FAC CCDS Apr 02, 2020 16:15
[2020-04-02] MEDS: TAMSULOSIN 0.4 MG (FLOMAX) CAP PO SCH (18:18)
[2020-04-02] MEDS: SERTRALINE 50 MG (ZOLOFT) TABLET PO SCH (21:22)
[2020-04-03 06:00] VITALS: BP 149/71
[2020-04-03] MEDS: ASPIRIN 325 MG (5 GR) TABLET PO SCH (07:50)
[2020-04-03] MEDS: DOCUSATE SODIUM 100 MG (COLACE) CAP PO SCH ×2 (07:50→20:42)
[2020-04-03] MEDS: SENNA W/DOCUSATE (SENOKOT S) TABLET PO SCH ×2 (07:50→20:42)
[2020-04-03] MEDS: HYDROcodone/APAP 5 MG/325 MG (LORTAB) TAB PO PRN ×4 (07:51→20:42)
[2020-04-03] MEDS: polyethylene glycoL POWDER 17 GM (MIRALAX) PACK PO SCH ×2 (07:52→19:29)
--- NOTE | 2020-04-03 08:01 | Occupational Ther Daily Note ---
OT Current Status-Daily Note Subjective Pt alert, lying in bed. Pt requests to use bedpan. Nrsg in room to assist. Mental Status/Objective Patient Orientation: Person, Place, Time, Situation ADL-Treatment Pt demonstrates increased L sided tone. Pt able to assist with rolling toward L side and hold self there with assist x1, assist x2 to roll and hold toward R side. Pt dependent for toilet hygiene/clothing manipulation and placement of bedpan. Nrsg set pt up with meal and pt is able to use regular utensils to eat. Meal is placed toward R side due to pt's L neglect. After session, pt sitting up in bed and nrsg in room. Call light/phone in reach. All needs met in room. Therapy Code Descriptions/Definitions Functional [place] Measure: 0=Not Assessed/NA 4=Minimal Assistance 1=Total Assistance 5=Supervision or Setup 2=Maximal Assistance 6=Modified [place] 3=Moderate Assistance 7=Complete IndependenceSCALE: Activities may be completed with or without assistive devices. 2-Mxsarznufp-uadliww completes the activity by him/herself with no assistance from a helper. 5-Set-up or Clean-up Assistance-helper sets up or cleans up; patient completes activity. [place] assists only prior to or following the activity. 4-Supervision or Touching Assistance-helper provides verbal cues and/or touching/steadying and/or contact guard assistance as patient completes activity. Assistance may be provided throughout the activity or intermittently. 3-Partial/Moderate Assistance-helper does LESS THAN HALF the effort. [place] lifts, holds or supports trunk or limbs, but provides less than half the effort. 2-Substantial/Maximal Assistance-helper does MORE THAN HALF the effort. [place] lifts or holds trunk or limbs and provides more than half the effort. 6-Tulkngljc-tiyesm does ALL the effort. Patient does none of the effort to complete the activity. Or, the assistance of 2 or more helpers is required for the patient to complete the activity. If activity was not attempted, code reason: 7-Patient Refused. 9-Not Applicable-not attempted and the patient did not perform the activity b efore the current illness, exacerbation or injury. 10-Not Attempted due to Environmental Limitations-(lack of equipment, weather restraints, etc.). 88-Not Attempted due to Medical Conditions or Safety Concerns. Eating (QC): 5 Toileting Hygiene (QC): 1 OT Short Term Goals Short Term Goals Time Frame: Apr 11, 2020 Eatin Oral hygiene: 3 Toileting hygiene: 3 Shower/bathe self: 2 Upper body dressin Lower body dressin Putting on/taking off footwear: 2 OT Casing In Line Setter Goals Casing In Line Setter Goals Time Frame: Apr 25, 2020 Eating (QC): 4 Oral Hygiene (QC): 4 Toileting Hygiene (QC): 3 Shower/Bathe Self (QC): 3 Upper Body Dressing (QC): 4 Lower Body Dressing (QC): 4 On/Off Footwear (QC): 4 Additional Goals: 1-Demonstrate ADL Tasks, 2-Verbalize Understanding, 3- ImproveStrength/[place] 1=Demonstrate adherence to instructed precautions during ADL tasks. 2=Patient will verbalize/demonstrate understanding of assistive devices/modifications for ADL. 3=Patient will improve strength/tolerance for activity to enable patient to perform ADL's. OT Education/Plan Problem List/Assessment Assessment: Decreased Activ Tolerance, Decreased UE Strength, Dependent Transfers, Impaired Bed Mobility, Impaired Coordination, Impaired Funct Balance, Impaired Self-Care Skills, Restricted Funct UE ROM Discharge Recommendations Plan/Recommendations: Continue POC Treatment Plan/Plan of Care Patient would benefit from OT for education, treatment and training to promote independence in ADL's, mobility, safety and/or upper extremity function for ADL's. Plan of Care: ADL Retraining, Functional Mobility, UE Funct Exercise/Act, UE Neuromus Re-Ed/Coord, Visual/Perceptual Retrain Treatment Duration: Apr 25, 2020 Frequency: At least 5 of 7 days/Wk (IRF) Estimated Hrs Per Day: 1.5 hours per day Agreement: Yes Rehab Potential: Good Time/GCodes Start Time: 07:15 Stop Time: 07:30 Total Time Billed (hr/min): 15 Billed Treatment Time 1 visit-ADL 1 (15 min) JOSIAH ESCALANTE Apr 03, 2020 08:01
--- NOTE | 2020-04-03 08:35 | Speech Therapy Daily Note ---
Speech Daily Progress Note Subjective Date Seen by Provider: Apr 03, 2020 Time Seen by Provider: 00:30 Patient was resting in his bed watching television when I entered his room. Objective Patient completed 80's trivia with 85% given 20% cues and/or repetitions. Assessment Assessment Current Status: Good Progress Treatment Plan Continue Plan of Care Speech Short Term Goals Short Term Goals Short Term Goals 1) Patient will complete memory tasks related to his daily needs at 90% or greater with minimal cues. 2) Patient will complete safety awareness tasks related to his daily needs at 90% or greater with minimal cues. 3) Patient will complete problem solving tasks related to his daily needs at 90% or greater with minimal cues. 4) Patient will tolerate least restrictive diet level without s/s of aspiration at 90% or greater. 5) Patient/caregiver will utilize compensatory strategies as trained at 90% or greater with minimal cues. Speech Triage Clinician Goals Triage Clinician Goals Patient will improve cognitive-communication necessary for safety and daily l iving tasks with minimal assist. Patient will maintain adequate nutrition/hydration via safe effective swallow function. Speech-Plan Patient/Family Goals Patient/Family Goals: Patient plans on returning home upon discharge. Treatment Plan Speech Therapy Treatment Plan: Continue Plan of Care Treatment Duration: Apr 05, 2020 Frequency: 5 times per week Estimated Hrs Per Day: .5 hour per day Rehab Potential: Good Barriers to Learning: Patient's recent CVA, however his speech/cognitive deficits are mostly resolved Pt/Family Agrees to Plan: Yes Safety Risks/Education Teaching Recipient: Patient Teaching Methods: Demonstration, Discussion Response to Teaching: Verbalize Understanding, Return Demonstration Education Topics Provided: Continued safety and communication of wants/needs Time Speech Therapy Time In: 08:00 Speech Therapy Time Out: 08:30 Total Billed Time: 30 Billed Treatment Time 1, BRIAN Ahuja Apr 03, 2020 08:35
--- NOTE | 2020-04-03 08:52 | PM&R Progress Note ---
Subjective HPI/CC On Admission Date Seen by Provider: Apr 03, 2020 Time Seen by Provider: 09:45 Subjective/Events-last exam Pain medication and Baclofen both used frequently Addiction potential noted Laxatives ordered because no BM for two days after he had a lot of loose stools Pickett was discontinued today, will hopefully be able to urinate with Flomax and urinary retention at home prior to the stroke Completed antibiotic Eating well Overall doing much better. Checked meds and labs Conferred with RN Reviewed therapy notes Mehnaz life rather than sit to stand will remain for now Review of Systems General: Fatigue, Malaise Neurological: Weakness, Incoordination Objective Exam Vital Signs Vital Signs Date Time Temp Pulse Resp B/P (MAP) Pulse Ox O2 Delivery O2 Flow Rate FiO2 04/03/20 20:20 Room Air 04/03/20 18:00 37.3 83 18 146/80 (102) 97 Capillary Refill : Less Than 3 Seconds General Appearance: No Apparent Distress, WD/WN, Chronically ill HEENT: PERRL/EOMI, Normal ENT Inspection, Pharynx Normal Neck: Full Range of Motion, Normal Inspection, Non Tender, Supple, Carotid Bruit Respiratory: Chest Non Tender, Lungs Clear, Normal Breath Sounds, No Accessory Muscle Use, No Respiratory Distress Cardiovascular: Regular Rate, Rhythm, No Edema, No Gallop, No JVD, No Murmur, Normal Peripheral Pulses Gastrointestinal: Normal Bowel Sounds, No Organomegaly, No Pulsatile Mass, Non Tender, Soft Back: Normal Inspection, No CVA Tenderness, No Vertebral Tenderness Extremity: Normal Capillary Refill, Normal Inspection, Normal Range of Motion (except left side), Non Tender, No Calf Tenderness, No Pedal Edema Neurologic/Psychiatric: Alert, Oriented x3, No Motor/Sensory Deficits, Normal Mood/Affect, Depressed Affect, Facial Droop (left), Motor Weakness (left sided paresis 0/5 flaccid) Skin: Normal Color, Warm/Dry Lymphatic: No Adenopathy Results/Procedures Lab Patient resulted labs reviewed. FIM Transfers Therapy Code Descriptions/Definitions Functional [place] Measure: 0=Not Assessed/NA 4=Minimal Assistance 1=Total Assistance 5=Supervision or Setup 2=Maximal Assistance 6=Modified [place] 3=Moderate Assistance 7=Complete IndependenceSCALE: Activities may be completed with or without assistive devices. 2-Vmxomfytph-ayroyhh completes the activity by him/herself with no assistance from a helper. 5-Set-up or Clean-up Assistance-helper sets up or cleans up; patient completes activity. [place] assists only prior to or following the activity. 4-Supervision or Touching Assistance-helper provides verbal cues and/or touching/steadying and/or contact guard assistance as patient completes activity. Assistance may be provided throughout the activity or intermittently. 3-Partial/Moderate Assistance-helper does LESS THAN HALF the effort. [place] lifts, holds or supports trunk or limbs, but provides less than half the effort. 2-Substantial/Maximal Assistance-helper does MORE THAN HALF the effort. [place] lifts or holds trunk or limbs and provides more than half the effort. 2-Deljezfkd-iasybz does ALL the effort. Patient does none of the effort to com plete the activity. Or, the assistance of 2 or more helpers is required for the patient to complete the activity. If activity was not attempted, code reason: 7-Patient Refused. 9-Not Applicable-not attempted and the patient did not perform the activity before the current illness, exacerbation or injury. 10-Not Attempted due to Environmental Limitations-(lack of equipment, weather restraints, etc.). 88-Not Attempted due to Medical Conditions or Safety Concerns. Roll Left to Right (QC): 2 Sit to Lying (QC): 1 Sit to Stand (QC): 3 Chair/Mks-lm-Ctgyi Xfer(QC): 3 Car Transfer (QC): 1 Gait Training Does the Patient Walk?: No and Walking Goal NOT indicated Walk 10 feet (QC): 88 Walk 50 ft with 2 Turns(QC): 88 Walk 150 ft (QC): 88 Walking 10ft/uneven surface-QC: 88 Wheelchair Training Does the Pt Use a Wheelchair?: Yes Distance: 150' Wheel 50 ft with 2 turns (QC): 2 Wheel 150 ft (QC): 2 Type of Wheelchair: Manual Stair Training 1 Step (curb) (QC): 88 4 Steps (QC): 88 12 Steps (QC): 88 Balance Picking up an Object (QC): 88 ADL-Treatment Eating (QC): 5 Oral Hygiene (QC): 5 Bathing Location: Chest, Abdomen, Perineal Area Shower/Bathe Self (QC): 1 Upper Body Dressing (QC): 2 Lower Body Dressing (QC): 1 On/Off Footwear (QC): 2 Toileting Hygiene (QC): 1 Toilet Transfer (QC): 1 Assessment/Plan Assessment and Plan Assess & Plan/Chief Complaint Assessment: Catastrophic CVA with left sided flaccidity Left facial droop COVID-19 antibody + Bipolar disorder Autism spectrum Urinary retention Pickett cath in place consulted Dr Drake Plan: IRF protocol Dr Drake consultation Monitor bowel function Fall risk CBD oil Mehnaz lift 04/01/20: Voltaren gel for back pain Lortab for pain Mehnaz lift completely no sit-2-stand ability Flaccid left side continues 04/02/20: Patient went to father's today Continue Voltaren gel for back pain Sit to stand no longer an option needs Emhnaz lift 04/03/20: Bowels moved 2 days ago Laxatives ordered Discontinue the Pickett catheter and Dr. Matias will monitor closely for retention Completed Augmentin Baclofen and pain medication taken on a real regular basis prone for dependency and addiction potential (1) Acute right MCA stroke Status: Acute (2) Facial droop due to cerebrovascular accident (CVA) (3) Bipolar disorder (4) Autism spectrum (5) Urinary retention (6) Pickett catheter in place (7) Coronavirus infection, unspecified Status: Chronic (8) Left-sided neglect Status: Acute (9) Dysphasia due to recent cerebrovascular accident (CVA) Status: Acute AIDE GATICA DO Apr 03, 2020 08:52
--- NOTE | 2020-04-03 10:15 | Physical Therapy Daily Note ---
PT Daily Note-Current Subjective Pt in bed upon arrival and agrees to co-treat. Pt states pain in lower back. Use of two clinicians d/t decreased strength, endurance, ROM, high tone, poor activity tolerance. Pain Location: Lower Location Body Site: Back Pain Description: Pressure Comment: Pt did not rate pain. Mental Status Patient Orientation: Person, Place, Time, Situation Attachments: Pickett Catheter Transfers SCALE: Activities may be completed with or without assistive devices. 7-Sawlmjrjdr-vancavi completes the activity by him/herself with no assistance from a helper. 5-Set-up or Clean-up Assistance-helper sets up or cleans up; patient completes activity. [place] assists only prior to or following the activity. 4-Supervision or Touching Assistance-helper provides verbal cues and/or touching/steadying and/or contact guard assistance as patient completes activity. Assistance may be provided throughout the activity or intermittently. 3-Partial/Moderate Assistance-helper does LESS THAN HALF the effort. [place] lifts, holds or supports trunk or limbs, but provides less than half the effort. 2-Substantial/Maximal Assistance-helper does MORE THAN HALF the effort. [place] lifts or holds trunk or limbs and provides more than half the effort. 9-Dxuivjctv-zwuhpz does ALL the effort. Patient does none of the effort to complete the activity. Or, the assistance of 2 or more helpers is required for the patient to complete the activity. If activity was not attempted, code reason: 7-Patient Refused. 9-Not Applicable-not attempted and the patient did not perform the activity before the current illness, exacerbation or injury. 10-Not Attempted due to Environmental Limitations-(lack of equipment, weather restraints, etc.). 88-Not Attempted due to Medical Conditions or Safety Concerns. Roll Left & Right (QC): 3 Sit to Lying (QC): 2 Lying to Sitting/Side of Bed(Q: 2 Sit to Stand (QC): 2 Chair/Yjl-dv-Zqcdh Xfer(QC): 1 Pt requires assist x2 for all transfers. Pt sit to stand x4 in // bars mod assist x2 for approx 30 secs each. PT worked on transfers while OT focused on UE placement/positioning during transfers. Wheelchair Training Does the Pt Use a Wheelchair?: Yes Wheel 50 ft with 2 turns (QC): 3 Wheel 150 ft (QC): 3 Type of Wheelchair: Manual Pt propels WC w R UE and needs assistance steering. Exercises Supine Ex: Ankle pumps (heel cord stretch), D2 F/E UE (L LE) Supine Reps: 12 Seated Therapy Exercises: Long arc quads, Hip flexion, Hip abd/add Seated Reps: 10 Pt total dependent on all L LE exercises. Pt had difficulty understanding instructions throughout exercises. Treatments Pt in bed with PT focused on stretching of LE for tone reduction and OT fitted L UE for splint. Pt transferred supine to sit max assist x2, working on sitting balance. Pt ipsilateral pushing needs constant VC and TC to lean to R side and come to midline. Pt required 2 assist to keep sitting position, pt extends trunk and requires 2 assist to slide back into sitting position using pad under pt. Pt transferred to and taken to gym. Pt sit to stand x4 with PT focusing on LE positioning, extending L knee, keeping pt towards midline and OT focused on UE positioning and extending R UE. Pt worked on leaning to R side with standing to keep in midline. Pt attempted to use NuStep, requiring PT to push L LE forward on NuStep. Pt felt uncomfortable and transferred back to . Pt performed seated exercises on LE and UE needing VC and TC. Pt returned to room, transferred in bed, and required max assist x2 for sit to lying and scooting up in bed. Throughout tx, PT focused on LE strengthening, positioning, and transfers, while OT focused on UE strengthening and positioning. Assessment Current Status: Fair Progress Pt requires many VC and TC throughout tx. Pt easily fatigues and needs rest breaks. Pt unable to follow directions well. PT Short Term Goals Short Term Goals Time Frame: Apr 04, 2020 Roll Left & Right: 3 Sit to lyin Lying to sitting on side of be: 3 Sit to stand: 3 Chair/nie-ys-cxcgs transfer: 2 PT Application Performance Engineer Goals Shelter Goals PT Application Performance Engineer Goals Time Frame: Apr 18, 2020 Roll Left & Right (QC): 3 (Pablo) Sit to Lying (QC): 3 (Pablo) Lying-Sitting on Side/Bed(QC): 3 (Pablo) Sit to Stand (QC): 3 (Pablo) Chair/Maa-ol-Mjkjz Xfer(QC): 3 (Pablo) Toilet Transfer (QC): 3 (Pablo) Car Transfer (QC): 3 (mod A) Does the Patient Walk: No and Walking Goal NOT indicated Walk 10 feet (QC): 88 Walk 50ft with 2 Turns (QC): 88 Walk 150 ft (QC): 88 Walking 10ft on Uneven Surface: 88 1 Step (curb) (QC): 88 4 Steps (QC): 88 12 Steps (QC): 88 Picking up an Object (QC): 88 Does the Pt use WC or Scooter?: Yes Wheel 50 feet with 2 turns (QC: 3 ([place]) Type: Manual Wheel 150 feet: 3 ([place]ablo) Type: Manual PT Plan Problem List Problem List: Activity Tolerance, Functional Strength, Safety, Balance, Transfer, Bed Mobility, ROM Treatment/Plan Treatment Plan: Continue Plan of Care Treatment Plan: Bed Mobility, Education, Functional Activity [place], Functional Strength, Group Therapy, Gait, Safety, Therapeutic Exercise, Transfers Treatment Duration: Apr 18, 2020 Frequency: At least 5 of 7 days/Wk (IRF) Estimated Hrs Per Day: 1.5 hours per day Patient and/or Family Agrees t: Yes Safety Risks/Education Patient Education: Transfer Techniques, Correct Positioning, Disease Process, Safety Issues Teaching Recipient: Patient, Family Teaching Methods: Demonstration, Discussion Response to Teaching: Verbalize Understanding, Return Demonstration, Reinfo rcement Needed Time/GCodes Time In: 900 Time Out: 1015 Total Billed Treatment Time: 75 Total Billed Treatment 1, FA x2 (30m), NM x2 (30m), Ex (15m) Co-treat with CHRISTIANO RESENDIZ PLEASURE CRAFT SAILOR Apr 03, 2020 10:15
--- NOTE | 2020-04-03 10:24 | Occupational Ther Daily Note ---
OT Current Status-Daily Note Subjective Pt alert, lying in bed. Pt agrees to therapy. Pt c/o back pain throughout session. Ointment applied to back by at end of treatment. Mental Status/Objective Patient Orientation: Person, Place, Time, Situation ADL-Treatment Pt requires max A to don/doff socks and shoes. Therapy Code Descriptions/Definitions Functional [place] Measure: 0=Not Assessed/NA 4=Minimal Assistance 1=Total Assistance 5=Supervision or Setup 2=Maximal Assistance 6=Modified [place] 3=Moderate Assistance 7=Complete IndependenceSCALE: Activities may be completed with or without assistive devices. 7-Fwdjubkfbe-hdlktbq completes the activity by him/herself with no assistance from a helper. 5-Set-up or Clean-up Assistance-helper sets up or cleans up; patient completes activity. [place] assists only prior to or following the activity. 4-Supervision or Touching Assistance-helper provides verbal cues and/or touching/steadying and/or contact guard assistance as patient completes activity. Assistance may be provided throughout the activity or intermittently. 3-Partial/Moderate Assistance-helper does LESS THAN HALF the effort. [place] lifts, holds or supports trunk or limbs, but provides less than half the effort. 2-Substantial/Maximal Assistance-helper does MORE THAN HALF the effort. [place] lifts or holds trunk or limbs and provides more than half the effort. 2-Wxxewifzb-oehwxp does ALL the effort. Patient does none of the effort to complete the activity. Or, the assistance of 2 or more helpers is required for the patient to complete the activity. If activity was not attempted, code reason: 7-Patient Refused. 9-Not Applicable-not attempted and the patient did not perform the activity before the current illness, exacerbation or injury. 10-Not Attempted due to Environmental Limitations-(lack of equipment, weather restraints, etc.). 88-Not Attempted due to Medical Conditions or Safety Concerns. On/Off Footwear: 2 Other Treatment OT/PT co-treat ([id number]), skills of 2 clinicians required due to pt's medical complexity, dependent transfers, decreased movement, dependent with L UE/LE movement. PT working in standing, sitting balance during functional tasks, strengthening and transfers. OT working on ADLs, L UE placement/positioning during standing/transfers, assist x2 for managing tone during transfer/standing and B UE strengthening. Pt to use sebastien lift for transfers without PT. Pt has L neglect, leans to L and pushes L with R hand. Pt demonstrates tightness in L hand and elbow, decreases with wt bearing and stretching. Movement only noted with flexion reflex, ie sneezing, yawning. Pt is demonstrating progress with sit to stands, verbal/physical cues required for L side weakness. Pt able to grasp parallel bars through reflexes, stabilization at elbow and shldr required. Resting hand splint given to pt. To be worn while sleeping or resting in bed to decrease L UE tone. After session, pt lying in bed with call light/phone in reach. All needs met in room. OT Short Term Goals Short Term Goals Time Frame: Apr 11, 2020 Eatin Oral hygiene: 3 Toileting hygiene: 3 Shower/bathe self: 2 Upper body dressin Lower body dressin Putting on/taking off footwear: 2 OT Pharmacy Informatics Specialist Goals Intermediate Goals Time Frame: Apr 25, 2020 Eating (QC): 4 Oral Hygiene (QC): 4 Toileting Hygiene (QC): 3 Shower/Bathe Self (QC): 3 Upper Body Dressing (QC): 4 Lower Body Dressing (QC): 4 On/Off Footwear (QC): 4 Additional Goals: 1-Demonstrate ADL Tasks, 2-Verbalize Understanding, 3-ImproveStrength/[place] 1=Demonstrate adherence to instructed precautions during ADL tasks. 2=Patient will verbalize/demonstrate understanding of assistive devices/modifications for ADL. 3=Patient will improve strength/tolerance for activity to enable patient to perform ADL's. OT Education/Plan Problem List/Assessment Assessment: Decreased Activ Tolerance, Decreased Safety Aware, Decreased UE Strength, Dependent Transfers, Impaired Bed Mobility, Impaired Cognition, Impaired Coordination, Impaired Funct Balance, Impaired I ADL's, Impaired Self- Care Skills, Restricted Funct UE ROM, Visual-Perceptual Deficit Discharge Recommendations Plan/Recommendations: Continue POC Treatment Plan/Plan of Care Patient would benefit from OT for education, treatment and training to promote independence in ADL's, mobility, safety and/or upper extremity function for ADL's. Plan of Care: ADL Retraining, Functional Mobility, UE Funct Exercise/Act, UE Neuromus Re-Ed/Coord, Visual/Perceptual Retrain Treatment Duration: Apr 25, 2020 Frequency: At least 5 of 7 days/Wk (IRF) Estimated Hrs Per Day: 1.5 hours per day Agreement: Yes Rehab Potential: Good Time/GCodes Start Time: 09:00 Stop Time: 10:15 Total Time Billed (hr/min): 75 Billed Treatment Time 1 visit-ADL 1 (20 min) NM 4 (55 min) co-treat with PT 75 min JOSIAH ESCALANTE Apr 03, 2020 10:24
--- NOTE | 2020-04-03 10:38 | Progress Note - Urology ---
Progress Note-Urology Progress Notes/Assess & Plan Progress/Assessment & Plan DOING PT WELL. TOLERATES FLOMAX. TOV TODAY Final Diagnosis URINE RETENTION WITH BPH AND NEUROGENIC BLADDER TIFFANIE WOMACK MD Apr 03, 2020 10:38
[2020-04-03] MEDS: PATCH REMOVAL TP SCH (11:46)
--- NOTE | 2020-04-03 14:49 | Progress Note - Cardiology ---
Cardiology SOAP Progress Note Subjective: No cp or palp or syncope or shortness of breath at rest Gen weakness and focal weakness No n/v/d Objective: I&O/Vital Signs 04/03/20 04/03/20 06:00 08:15 Temp 36.5 Pulse 71 Resp 16 B/P (MAP) 149/71 (97) Pulse Ox 97 O2 Delivery Room Air Room Air 04/03/20 00:00 Intake Total 950 ml Output Total 650 ml Balance 300 ml Constitutional: AAO x 3, PERRL, well-developed, well-nourished Respiratory: chest is bilaterally symmetric, lungs clear to auscultation Cardiovascular: regular rate-rhythm, S1 and S2 Gastrointestional: soft, audible bowel sounds Extremities: no lower extremity edema bilateral Neurologic/Psychiatric: facial droop (left), other (left sided flaccid) Skin: No rash on exposed areas, No ulcerations on exposed areas A/P: Assessment: Cryptogenic stroke - ILR implanted on 03-26-[address] Arevalo Non-occlusive carotid dz, minimal plaque seen on carotid u/s of March 25, 2020 Echocardiogram of March 26, [address] Arevalo: 55-65% showed normal LV function with no wall motion abnormalities. Negative bubble study ruled out significant intracardiac shunting (+) COVID antibody on testing of March 25, 2020 HTN Plan: Continue current medication regimen Monitor lab ISABELL BEATTY MD FACP FAC CCDS Apr 03, 2020 14:49
--- NOTE | 2020-04-03 16:02 | NUR ---
CM/SS PATIENT CARE CONFERENCE Visited with patient and Carole, both are in agreement to continued stay with review next 04/10/20. Discussed anticipated DME needs including reclining wheelchair, ramp, possibility of a sebastien. Carole has requested a hospital/adjustable bed with side rails. Plumbing Technician will continue to partner with patient/ and therapy team for a more finite list of assistive devices needed in the home for patient max performance and safety. Carole stated she wanted patient to return home as soon as she is able to transfer him safely. She has a very tentative plan in place for a friend and former work associate, Smith Wagoner, to assist with patient care in the home. 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 Patient/ have contacted [employer] regarding disability and completed one call thus far. She indicates forms are to be sent to their home for completion. Carole indicates they had a future plan to build a barn house behind their current home, but now are moving forward on a plan to begin clearing land closer to the road and starting the build now. This will be slab on grade so that no ramp will be needed. Will continue to follow progress re same. Provided Carole with the [facility] paperwork for her employer.
[2020-04-03 18:00] VITALS: BP 146/80
[2020-04-03] MEDS: TAMSULOSIN 0.4 MG (FLOMAX) CAP PO SCH (18:01)
[2020-04-03] MEDS: ENOXAPARIN 40 MG/0.4 ML (LOVENOX) SYR SC SCH (18:01)
[2020-04-03] MEDS: SERTRALINE 50 MG (ZOLOFT) TABLET PO SCH (20:42)
[2020-04-04] MEDS: HYDROcodone/APAP 5 MG/325 MG (LORTAB) TAB PO PRN ×4 (01:16→21:27)
--- NOTE | 2020-04-04 05:32 | NUR ---
Bladder scan estimated 227 ml of urine. Patient straight cathed due to patient not voiding all night. 350 ml of clear light sandi urine obtained. Followed sterile procedure and patient tolerated well.
[2020-04-04 05:33] VITALS: BP 129/67
--- NOTE | 2020-04-04 06:27 | PM&R Progress Note ---
Subjective HPI/CC On Admission Date Seen by Provider: Apr 04, 2020 Time Seen by Provider: 10:00 Subjective/Events-last exam After urinary catheter was removed yesterday he has been unable to urinate completely Neurogenic bladder from stroke and urinary retention from likely BPH since he was having bladder retention before admission Requiring in and out catheters Flomax is maintained Had a BM three days ago, Laxatives will be given Checked meds and labs Conferred with RN Reviewed therapy notes Mehnaz life rather than sit to stand will remain for now Review of Systems General: Fatigue, Malaise Genitourinary: Retention Objective Exam Vital Signs Vital Signs Date Time Temp Pulse Resp B/P (MAP) Pulse Ox O2 Delivery O2 Flow Rate FiO2 04/04/20 20:20 Room Air 04/04/20 17:47 37.2 78 18 143/68 (93) 97 Capillary Refill : Less Than 3 Seconds General Appearance: No Apparent Distress, WD/WN, Chronically ill HEENT: PERRL/EOMI, Normal ENT Inspection, Pharynx Normal Neck: Full Range of Motion, Normal Inspection, Non Tender, Supple, Carotid Bruit Respiratory: Chest Non Tender, Lungs Clear, Normal Breath Sounds, No Accessory Muscle Use, No Respiratory Distress Cardiovascular: Regular Rate, Rhythm, No Edema, No Gallop, No JVD, No Murmur, Normal Peripheral Pulses Gastrointestinal: Normal Bowel Sounds, No Organomegaly, No Pulsatile Mass, Non Tender, Soft Back: Normal Inspection, No CVA Tenderness, No Vertebral Tenderness Extremity: Normal Capillary Refill, Normal Inspection, Normal Range of Motion (except left side), Non Tender, No Calf Tenderness, No Pedal Edema Neurologic/Psychiatric: Alert, Oriented x3, No Motor/Sensory Deficits, Normal Mood/Affect, Depressed Affect, Facial Droop (left), Motor Weakness (left sided paresis 0/5 flaccid) Skin: Normal Color, Warm/Dry Lymphatic: No Adenopathy Results/Procedures Lab Patient resulted labs reviewed. FIM Transfers Therapy Code Descriptions/Definitions Functional [place] Measure: 0=Not Assessed/NA 4=Minimal Assistance 1=Total Assistance 5=Supervision or Setup 2=Maximal Assistance 6=Modified [place] 3=Moderate Assistance 7=Complete IndependenceSCALE: Activities may be completed with or without assistive devices. 2-Zwzdfrctam-xovmmjo completes the activity by him/herself with no assistance from a helper. 5-Set-up or Clean-up Assistance-helper sets up or cleans up; patient completes activity. [place] assists only prior to or following the activity. 4-Supervision or Touching Assistance-helper provides verbal cues and/or touching/steadying and/or contact guard assistance as patient completes activi ty. Assistance may be provided throughout the activity or intermittently. 3-Partial/Moderate Assistance-helper does LESS THAN HALF the effort. [place] lifts, holds or supports trunk or limbs, but provides less than half the effort. 2-Substantial/Maximal Assistance-helper does MORE THAN HALF the effort. [place] lifts or holds trunk or limbs and provides more than half the effort. 3-Gukcbcbqp-dspuaf does ALL the effort. Patient does none of the effort to complete the activity. Or, the assistance of 2 or more helpers is required for the patient to complete the activity. If activity was not attempted, code reason: 7-Patient Refused. 9-Not Applicable-not attempted and the patient did not perform the activity before the current illness, exacerbation or injury. 10-Not Attempted due to Environmental Limitations-(lack of equipment, weather restraints, etc.). 88-Not Attempted due to Medical Conditions or Safety Concerns. Roll Left to Right (QC): 3 Sit to Lying (QC): 2 Sit to Stand (QC): 2 Chair/Fzp-xx-Oliyb Xfer(QC): 1 Car Transfer (QC): 1 Gait Training Does the Patient Walk?: No and Walking Goal NOT indicated Walk 10 feet (QC): 88 Walk 50 ft with 2 Turns(QC): 88 Walk 150 ft (QC): 88 Walking 10ft/uneven surface-QC: 88 Wheelchair Training Does the Pt Use a Wheelchair?: Yes Distance: 150' Wheel 50 ft with 2 turns (QC): 3 Wheel 150 ft (QC): 3 Type of Wheelchair: Manual Stair Training 1 Step (curb) (QC): 88 4 Steps (QC): 88 12 Steps (QC): 88 Balance Picking up an Object (QC): 88 ADL-Treatment Eating (QC): 5 Oral Hygiene (QC): 5 Bathing Location: Chest, Abdomen, Perineal Area Shower/Bathe Self (QC): 1 Upper Body Dressing (QC): 2 Lower Body Dressing (QC): 1 On/Off Footwear (QC): 2 Toileting Hygiene (QC): 1 Toilet Transfer (QC): 1 Assessment/Plan Assessment and Plan Assess & Plan/Chief Complaint Assessment: Catastrophic CVA with left sided flaccidity Left facial droop COVID-19 antibody + Bipolar disorder Autism spectrum Urinary retention Pickett cath in place consulted Dr Drake Plan: IRF protocol Dr Drake consultation Monitor bowel function Fall risk CBD oil Mehnaz lift 04/01/20: Voltaren gel for back pain Lortab for pain Mehnaz lift completely no sit-2-stand ability Flaccid left side continues 04/02/20: Patient went to father's today Continue Voltaren gel for back pain Sit to stand no longer an option needs Mehnaz lift 04/03/20: Bowels moved 2 days ago Laxatives ordered Discontinue the Pickett catheter and Dr. Matias will monitor closely for retention Completed Augmentin Baclofen and pain medication taken on a real regular basis prone for dependency and addiction potential 04/04/20: Urology management of urinary retention since catheter removed Continue pain management but addiction potential noted Air mattress to prevent skin breakdown Laxatives due to constipation now (1) Acute right MCA stroke Status: Acute (2) Facial droop due to cerebrovascular accident (CVA) (3) Bipolar disorder (4) Autism spectrum (5) Urinary retention (6) Pickett catheter in place (7) Coronavirus infection, unspecified Status: Chronic (8) Left-sided neglect Status: Acute (9) Dysphasia due to recent cerebrovascular accident (CVA) Status: Acute AIDE GATICA DO Apr 04, 2020 06:27
[2020-04-04] MEDS: SENNA W/DOCUSATE (SENOKOT S) TABLET PO SCH ×2 (08:09→21:27)
[2020-04-04] MEDS: polyethylene glycoL POWDER 17 GM (MIRALAX) PACK PO SCH ×2 (08:09→21:54)
[2020-04-04] MEDS: DOCUSATE SODIUM 100 MG (COLACE) CAP PO SCH ×2 (08:09→21:27)
[2020-04-04] MEDS: ASPIRIN 325 MG (5 GR) TABLET PO SCH (08:09)
[2020-04-04] MEDS: DICLOFENAC 1% GEL 100 GM (VOLTAREN) TUBE TOP PRN (08:10)
--- NOTE | 2020-04-04 09:21 | Physical Therapy Daily Note ---
PT Daily Note-Current Subjective Patient in bed pre tx, agrees to PT, has back pain with activity. Will be co- treating with OT due to poor patient mobility, strength, endurance, sitting and standing balance, left hemiparesis, the need to coordinate UE and LE during activity. Appearance Patient in bed post tx with nurse call, phone, tray, all needs met, laying on left side with pillow support, in room. Mental Status Patient Orientation: Person, Place, Situation Transfers SCALE: Activities may be completed with or without assistive devices. 6-Barpsxvmed-jovglgf completes the activity by him/herself with no assistance from a helper. 5-Set-up or Clean-up Assistance-helper sets up or cleans up; patient completes activity. [place] assists only prior to or following the activity. 4-Supervision or Touching Assistance-helper provides verbal cues and/or touching/steadying and/or contact guard assistance as patient completes activity. Assistance may be provided throughout the activity or intermittently. 3-Partial/Moderate Assistance-helper does LESS THAN HALF the effort. [place] lifts, holds or supports trunk or limbs, but provides less than half the effort. 2-Substantial/Maximal Assistance-helper does MORE THAN HALF the effort. [place] lifts or holds trunk or limbs and provides more than half the effort. 3-Kujqrzshj-hemxck does ALL the effort. Patient does none of the effort to complete the activity. Or, the assistance of 2 or more helpers is required for the patient to complete the activity. If activity was not attempted, code reason: 7-Patient Refused. 9-Not Applicable-not attempted and the patient did not perform the activity before the current illness, exacerbation or injury. 10-Not Attempted due to Environmental Limitations-(lack of equipment, weather restraints, etc.). 88-Not Attempted due to Medical Conditions or Safety Concerns. Roll Left & Right (QC): 2 Sit to Lying (QC): 1 Lying to Sitting/Side of Bed(Q: 2 Sit to Stand (QC): 3 Chair/Lgr-rt-Mpvgm Xfer(QC): 2 Patient finished bathing in bed, dressing in bed and after supine to sit, transfer to and finish bathing and dressing. propel to therapy gym max assist, cues for use of right arm and leg, stood in parallel bars x3 for a couple of minutes each time, assist with balance and positioning, tried ambulating but patient cannot bear weight on left leg, transfer to therapy table worked on sitting balance and limits of stability with cone reaching, sit to stand from progressively lower surface 3 sets of 5, practiced stand pivot transfer x3, transferred to WC and propel back to room, transfer to bed. Treatments bed mobility and transfer training, standing, balance training, WC training. PT worked on bed mobility and transfer, standing, balance during bathing and dressing and sitting balance training, sit to stand, WC mobility, OT worked on bathing and dressing and assist with transfers and balance training, and UE positioning and safety during activity. Assessment Current Status: Poor Progress very slow progress, slight improvement with standing balance PT Short Term Goals Short Term Goals Time Frame: Apr 04, 2020 Roll Left & Right: 3 Sit to lyin Lying to sitting on side of be: 3 Sit to stand: 3 Chair/mcq-lx-yshyk transfer: 2 PT Jail Goals Jail Goals PT Intervention Analyst Goals Time Frame: Apr 18, 2020 Roll Left & Right (QC): 3 (Pablo) Sit to Lying (QC): 3 (Pablo) Lying-Sitting on Side/Bed(QC): 3 (Pablo) Sit to Stand (QC): 3 (Pablo) Chair/Rxz-np-Zncnq Xfer(QC): 3 (Pablo) Toilet Transfer (QC): 3 (Pablo) Car Transfer (QC): 3 (mod A) Does the Patient Walk: No and Walking Goal NOT indicated Walk 10 feet (QC): 88 Walk 50ft with 2 Turns (QC): 88 Walk 150 ft (QC): 88 Walking 10ft on Uneven Surface: 88 1 Step (curb) (QC): 88 4 Steps (QC): 88 12 Steps (QC): 88 Picking up an Object (QC): 88 Does the Pt use WC or Scooter?: Yes Wheel 50 feet with 2 turns (QC: 3 (Pablo) Type: Manual Wheel 150 feet: 3 (Pablo) Type: Manual PT Plan Problem List Problem List: Activity Tolerance, Functional Strength, Safety, Balance, Gait, Transfer, Bed Mobility, ROM Treatment/Plan Treatment Plan: Continue Plan of Care Treatment Plan: Bed Mobility, Education, Functional Activity [place], Functional Strength, Group Therapy, Gait, Safety, Therapeutic Exercise, Transfers Treatment Duration: Apr 18, 2020 Frequency: At least 5 of 7 days/Wk (IRF) Estimated Hrs Per Day: 1.5 hours per day Patient and/or Family Agrees t: Yes Safety Risks/Education Patient Education: Transfer Techniques, Correct Positioning, W/C Management, Safety Issues Teaching Recipient: Patient Teaching Methods: Demonstration, Discussion Response to Teaching: Reinforcement Needed Time/GCodes Time In: 0800 Time Out: 0915 Total Billed Treatment Time: 75 Total Billed Treatment 1 visit [facility] 15' NM 15' FA 45' MARK RYAN PT Apr 04, 2020 09:21
--- NOTE | 2020-04-04 09:32 | Occupational Ther Daily Note ---
OT Current Status-Daily Note Subjective Pt alert, lying in bed. Pt agrees to therapy. Pt c/o back pain, ointment applied and nrsg administered pain meds. Mental Status/Objective Patient Orientation: Person, Place, Time, Situation ADL-Treatment Pt requested bed bath, declined shower. Pt able to wash audrey area in supine then in sitting pt bathed chest, abdomen and L side. For bed bath, pt able to roll toward left side with CGA then assist to bathe buttocks and B LE's. Assist x2 to roll toward R side. Assist x2 for supine to sitting. Assist x2 for sitting EOB though pt is progressing with sitting balance. Pt is impulsive and has retropulsive tendency during sitting or transfers. Pt dependent donning lower body clothing (supine for safety), max A to don/doff footwear. Assist x2 for SPT to w/c. Max A for donning/doffing shirt. Set up for oral care sitting at sink. Therapy Code Descriptions/Definitions Functional [place] Measure: 0=Not Assessed/NA 4=Minimal Assistance 1=Total Assistance 5=Supervision or Setup 2=Maximal Assistance 6=Modified [place] 3=Moderate Assistance 7=Complete IndependenceSCALE: Activities may be completed with or without assistive devices. 0-Ftarbblars-pmrlbni completes the activity by him/herself with no assistance from a helper. 5-Set-up or Clean-up Assistance-helper sets up or cleans up; patient completes activity. [place] assists only prior to or following the activity. 4-Supervision or Touching Assistance-helper provides verbal cues and/or touching/steadying and/or contact guard assistance as patient completes activity. Assistance may be provided throughout the activity or intermittently. 3-Partial/Moderate Assistance-helper does LESS THAN HALF the effort. [place] lifts, holds or supports trunk or limbs, but provides less than half the effort. 2-Substantial/Maximal Assistance-helper does MORE THAN HALF the effort. [place] lifts or holds trunk or limbs and provides more than half the effort. 3-Luwodqyka-jldvmb does ALL the effort. Patient does none of the effort to complete the activity. Or, the assistance of 2 or more helpers is required for the patient to complete the activity. If activity was not attempted, code reason: 7-Patient Refused. 9-Not Applicable-not attempted and the patient did not perform the activity before the current illness, exacerbation or injury. 10-Not Attempted due to Environmental Limitations-(lack of equipment, weather restraints, etc.). 88-Not Attempted due to Medical Conditions or Safety Concerns. Eating (QC): 5 (Set up for eating. Uses regular utensils to eat.) Oral Hygiene (QC): 5 Bathing Location: Chest, Abdomen, Perineal Area Shower/Bathe Self (QC): 1 Upper Body Dressing (QC): 2 Lower Body Dressing (QC): 1 On/Off Footwear: 2 Other Treatment OT/PT co-treat ([id number]), skills of 2 clinicians required due to pt's medical complexity, dependent transfers, decreased movement, dependent with L UE/LE movement. PT working in standing, sitting balance during functional tasks, strengthening and transfers. OT working on ADLs, L UE placement/positioning d uring standing/transfers, assist x2 for managing tone during transfer/standing and B UE strengthening. Pt to use sebastien lift for transfers without PT. Pt has L neglect, leans to L and pushes L with R hand. Pt demonstrates tightness in L hand and elbow, decreases with wt bearing and stretching. Movement only noted with flexion reflex, ie sneezing, yawning. Pt is demonstrating progress with sit to stands, verbal/physical cues required for L side awareness/positioning. Pt able to grasp parallel bars through reflexes, stabilization at elbow and shldr required. Pt is demonstrating progress with body awareness during transfers and standing.After session, pt lying in bed with call light/phone in reach. All needs met in room. Education OT Patient Education: Instructions to caregiver, Modified ADL techniques, Transfer techniques Teaching Recipient: Patient, Family Teaching Methods: Demonstration, Discussion Response to Teaching: Verbalize Understanding, Unable to Return Demonstration, Return Demonstration, Reinforcement Needed OT Short Term Goals Short Term Goals Time Frame: Apr 11, 2020 Eatin Oral hygiene: 3 Toileting hygiene: 3 Shower/bathe self: 2 Upper body dressin Lower body dressin Putting on/taking off footwear: 2 OT Usp Goals Registered Nurse Maternal Child Goals Time Frame: Apr 25, 2020 Eating (QC): 4 Oral Hygiene (QC): 4 Toileting Hygiene (QC): 3 Shower/Bathe Self (QC): 3 Upper Body Dressing (QC): 4 Lower Body Dressing (QC): 4 On/Off Footwear (QC): 4 Additional Goals: 1-Demonstrate ADL Tasks, 2-Verbalize Understanding, 3- ImproveStrength/[place] 1=Demonstrate adherence to instructed precautions during ADL tasks. 2=Patient will verbalize/demonstrate understanding of assistive devices/modifications for ADL. 3=Patient will improve strength/tolerance for activity to enable patient to perform ADL's. OT Education/Plan Problem List/Assessment Assessment: Decreased Activ Tolerance, Decreased Safety Aware, Decreased UE Strength, Dependent Transfers, Impaired Bed Mobility, Impaired Cognition, Impaired Coordination, Impaired Funct Balance, Impaired Self-Care Skills, Restricted Funct UE ROM Discharge Recommendations Plan/Recommendations: Continue POC Treatment Plan/Plan of Care Patient would benefit from OT for education, treatment and training to promote independence in ADL's, mobility, safety and/or upper extremity function for ADL's. Plan of Care: ADL Retraining, Functional Mobility, UE Funct Exercise/Act, UE Neuromus Re-Ed/Coord, Visual/Perceptual Retrain Treatment Duration: Apr 25, 2020 Frequency: At least 5 of 7 days/Wk (IRF) Estimated Hrs Per Day: 1.5 hours per day Agreement: Yes Rehab Potential: Good Time/GCodes Start Time: 07:45 Stop Time: 09:15 Total Time Billed (hr/min): 90 Billed Treatment Time 1 visit-ADL 2 (30 min) NM 4 (60 min) co-treat PT [id number] Individual [id number] JOSIAH ESCALANTE Apr 04, 2020 09:31
[2020-04-04] MEDS: BACLOFEN 10 MG (LIORESAL) TAB PO PRN (10:25)
--- NOTE | 2020-04-04 13:51 | Speech Therapy Daily Note ---
Speech Daily Progress Note Subjective Date Seen by Provider: Apr 04, 2020 Time Seen by Provider: 00:15 Patient was resting in his bed following his OT and PT session. Patient's at bedside. Objective Patient completed a speech task of sentence completion using 2 given unrelated words with 80% given minimal repetitions. Assessment Assessment Current Status: Good Progress Treatment Plan Continue Plan of Care Speech Short Term Goals Short Term Goals Short Term Goals 1) Patient will complete memory tasks related to his daily needs at 90% or greater with minimal cues. 2) Patient will complete safety awareness tasks related to his daily needs at 90% or greater with minimal cues. 3) Patient will complete problem solving tasks related to his daily needs at 90% or greater with minimal cues. 4) Patient will tolerate least restrictive diet level without s/s of aspiration at 90% or greater. 5) Patient/caregiver will utilize compensatory strategies as trained at 90% or greater with minimal cues. Speech [place] Goals Senior Budget Analyst Goals Patient will improve cognitive-communication necessary for safety and daily living tasks with minimal assist. Patient will maintain adequate nutrition/hydration via safe effective swallow function. Speech-Plan Patient/Family Goals Patient/Family Goals: Patient plans on returning to his home upon discharge from rehab. Treatment Plan Speech Therapy Treatment Plan: Continue Plan of Care Treatment Duration: Apr 05, 2020 Frequency: 5 times per week Estimated Hrs Per Day: .5 hour per day Rehab Potential: Good Barriers to Learning: Patient's recent CVA Pt/Family Agrees to Plan: Yes Safety Risks/Education Teaching Recipient: Patient, Significant Other Teaching Methods: Demonstration, Discussion Response to Teaching: Verbalize Understanding, Return Demonstration Education Topics Provided: Continued safety and communication of wants/needs Time Speech Therapy Time In: 09:15 Speech Therapy Time Out: 09:30 Total Billed Time: 15 Billed Treatment Time 1LEVI B[address] ST Apr 04, 2020 13:51
--- NOTE | 2020-04-04 13:58 | NUR ---
UNABLE TO VOID. BLADDER SCAN DONE AND SHOWING 366 MLS. ECHEVARRIA CATHETER PLACED PER DR. WOMACK'S ORDER. PATIENT TOLERATED WELL.
--- NOTE | 2020-04-04 14:00 | NUR ---
NEW ALLEVYN TO LEFT HEEL. INTACT BLISTER NOTED. STATES, "LOOKS BETTER".
[2020-04-04] MEDS: BETHANECHOL 25 MG (URECHOLINE) TAB PO SCH ×2 (17:16→21:27)
[2020-04-04] MEDS: ENOXAPARIN 40 MG/0.4 ML (LOVENOX) SYR SC SCH (17:16)
[2020-04-04] MEDS: TAMSULOSIN 0.4 MG (FLOMAX) CAP PO SCH (17:16)
[2020-04-04] MEDS: LACTULOSE SYRUP 10GM/15ML (ENULOSE) 30ML UDC PO PRN (17:18)
--- NOTE | 2020-04-04 17:18 | NUR ---
LACTULOSE GIVEN FOR C/O CONSTIPATION.
[2020-04-04 17:47] VITALS: BP 143/68
[2020-04-04] MEDS: SERTRALINE 50 MG (ZOLOFT) TABLET PO SCH (21:27)
[2020-04-05] MEDS: HYDROcodone/APAP 5 MG/325 MG (LORTAB) TAB PO PRN ×4 (02:26→19:15)
[2020-04-05 05:14] VITALS: BP 153/72
[2020-04-05] MEDS: BETHANECHOL 25 MG (URECHOLINE) TAB PO SCH ×4 (06:33→20:23)
--- NOTE | 2020-04-05 09:15 | PM&R Progress Note ---
Subjective HPI/CC On Admission Date Seen by Provider: Apr 05, 2020 Time Seen by Provider: 09:15 Subjective/Events-last exam After urinary catheter was removed Wednesday he has been unable to urinate and evacuate completely so Pickett replaced and Urecholine started Dr Drake and I conferred this morning Neurogenic bladder from stroke and urinary retention from likely BPH since he was having bladder retention symptoms before admission Flomax is maintained Had a BM five days ago, Laxatives will be given along with suppository and Fleets Talked about Narc use every 4 hours so he reports the pain is better so will decrease that frequency to Q6hrs and will only take it if absolutely needed since addiction potential noted Checked meds and labs Conferred with RN Reviewed therapy notes Mehnaz life rather than sit to stand will remain for now Objective Exam Vital Signs Vital Signs Date Time Temp Pulse Resp B/P (MAP) Pulse Ox O2 Delivery O2 Flow Rate FiO2 04/05/20 07:59 Room Air 04/05/20 05:14 36.8 71 18 153/72 (99) 96 Capillary Refill : Less Than 3 Seconds General Appearance: No Apparent Distress, WD/WN, Chronically ill HEENT: PERRL/EOMI, Normal ENT Inspection, Pharynx Normal Neck: Full Range of Motion, Normal Inspection, Non Tender, Supple, Carotid Bruit Respiratory: Chest Non Tender, Lungs Clear, Normal Breath Sounds, No Accessory Muscle Use, No Respiratory Distress Cardiovascular: Regular Rate, Rhythm, No Edema, No Gallop, No JVD, No Murmur, Normal Peripheral Pulses Gastrointestinal: Normal Bowel Sounds, No Organomegaly, No Pulsatile Mass, Non Tender, Soft Back: Normal Inspection, No CVA Tenderness, No Vertebral Tenderness Extremity: Normal Capillary Refill, Normal Inspection, Normal Range of Motion (except left side), Non Tender, No Calf Tenderness, No Pedal Edema Neurologic/Psychiatric: Alert, Oriented x3, No Motor/Sensory Deficits, Normal Mood/Affect, Depressed Affect, Facial Droop (left), Motor Weakness (left sided paresis 0/5 flaccid) Skin: Normal Color, Warm/Dry Lymphatic: No Adenopathy Results/Procedures Lab Patient resulted labs reviewed. FIM Transfers Therapy Code Descriptions/Definitions Functional [place] Measure: 0=Not Assessed/NA 4=Minimal Assistance 1=Total Assistance 5=Supervision or Setup 2=Maximal Assistance 6=Modified [place] 3=Moderate Assistance 7=Complete IndependenceSCALE: Activities may be completed with or without assistive devices. 2-Slyxjpxpel-bexkxij completes the activity by him/herself with no assistance from a helper. 5-Set-up or Clean-up Assistance-helper sets up or cleans up; patient completes activity. [place] assists only prior to or following the activity. 4-Supervision or Touching Assistance-helper provides verbal cues and/or touching/steadying and/or contact guard assistance as patient completes activity. Assistance may be provided throughout the activity or intermittently. 3-Partial/Moderate Assistance-helper does LESS THAN HALF the effort. [place] lifts, holds or supports trunk or limbs, but provides less than half the effort. 2-Substantial/Maximal Assistance-helper does MORE THAN HALF the effort. [place] lifts or holds trunk or limbs and provides more than half the effort. 7-Bypbfbcmd-rkmhin does ALL the effort. Patient does none of the effort to complete the activity. Or, the assistance of 2 or more helpers is required for the patient to complete the activity. If activity was not attempted, code reason: 7-Patient Refused. 9-Not Applicable-not attempted and the patient did not perform the activity before the current illness, exacerbation or injury. 10-Not Attempted due to Environmental Limitations-(lack of equipment, weather restraints, etc.). 88-Not Attempted due to Medical Conditions or Safety Concerns. Roll Left to Right (QC): 2 Sit to Lying (QC): 1 Sit to Stand (QC): 3 Chair/Knn-xm-Wlhvk Xfer(QC): 2 Car Transfer (QC): 1 Gait Training Does the Patient Walk?: No and Walking Goal NOT indicated Walk 10 feet (QC): 88 Walk 50 ft with 2 Turns(QC): 88 Walk 150 ft (QC): 88 Walking 10ft/uneven surface-QC: 88 Wheelchair Training Does the Pt Use a Wheelchair?: Yes Distance: 150' Wheel 50 ft with 2 turns (QC): 3 Wheel 150 ft (QC): 3 Type of Wheelchair: Manual Stair Training 1 Step (curb) (QC): 88 4 Steps (QC): 88 12 Steps (QC): 88 Balance Picking up an Object (QC): 88 ADL-Treatment Eating (QC): 5 (Set up for eating. Uses regular utensils to eat.) Oral Hygiene (QC): 5 Bathing Location: Chest, Abdomen, Perineal Area Shower/Bathe Self (QC): 1 Upper Body Dressing (QC): 2 Lower Body Dressing (QC): 1 On/Off Footwear (QC): 2 Toileting Hygiene (QC): 1 Toilet Transfer (QC): 1 Assessment/Plan Assessment and Plan Assess & Plan/Chief Complaint Assessment: Catastrophic CVA with left sided flaccidity Left facial droop COVID-19 antibody + Bipolar disorder Autism spectrum Urinary retention Pickett cath in place consulted Dr Drake Plan: IRF protocol Dr Drake consultation Monitor bowel function Fall risk CBD oil Mehnaz lift 04/01/20: Voltaren gel for back pain Lortab for pain Mehnaz lift completely no sit-2-stand ability Flaccid left side continues 04/02/20: Patient went to father's today Continue Voltaren gel for back pain Sit to stand no longer an option needs Mehnaz lift 04/03/20: Bowels moved 2 days ago Laxatives ordered Discontinue the Pickett catheter and Dr. Matias will monitor closely for retention Completed Augmentin Baclofen and pain medication taken on a real regular basis prone for dependency and addiction potential 04/04/20: Urology management of urinary retention since catheter removed Continue pain management but addiction potential noted Air mattress to prevent skin breakdown Laxatives due to constipation now 04/05/20: Bowels still not moving, supp and Fleets and SSE will be given Decrease pain meds to Q6hrs due to overuse and narcotic bowel noted complications Addiction potential noted Pickett cath replaced and Flomax and Urecholine maintained now (1) Acute right MCA stroke Status: Acute (2) Facial droop due to cerebrovascular accident (CVA) (3) Bipolar disorder (4) Autism spectrum (5) Urinary retention (6) Pickett catheter in place (7) Coronavirus infection, unspecified Status: Chronic (8) Left-sided neglect Status: Acute (9) Dysphasia due to recent cerebrovascular accident (CVA) Status: Acute AIDE GATICA DO Apr 05, 2020 09:14
[2020-04-05] MEDS: SENNA W/DOCUSATE (SENOKOT S) TABLET PO SCH ×2 (09:17→20:33)
[2020-04-05] MEDS: polyethylene glycoL POWDER 17 GM (MIRALAX) PACK PO SCH ×2 (09:17→20:33)
[2020-04-05] MEDS: DOCUSATE SODIUM 100 MG (COLACE) CAP PO SCH ×2 (09:17→20:23)
[2020-04-05] MEDS: ASPIRIN 325 MG (5 GR) TABLET PO SCH (09:17)
--- NOTE | 2020-04-05 09:25 | Physical Therapy Daily Note ---
PT Daily Note-Current Subjective Patient in WC pre tx, agrees to PT, has unrated back pain. Will be co-treating with OT this morning due to poor patient mobility, strength, endurance, sitting and standing balance, left hemiparesis, reduce the risk of falls. Appearance Patient in bed post tx with nurse call, phone, tray, all needs met, in room. Mental Status Patient Orientation: Person, Place, Situation Attachments: Pickett Catheter Transfers SCALE: Activities may be completed with or without assistive devices. 2-Sfgwlcggsb-xncshtt completes the activity by him/herself with no assistance from a helper. 5-Set-up or Clean-up Assistance-helper sets up or cleans up; patient completes activity. [place] assists only prior to or following the activity. 4-Supervision or Touching Assistance-helper provides verbal cues and/or touching/steadying and/or contact guard assistance as patient completes activity. Assistance may be provided throughout the activity or intermittently. 3-Partial/Moderate Assistance-helper does LESS THAN HALF the effort. [place] lifts, holds or supports trunk or limbs, but provides less than half the effort. 2-Substantial/Maximal Assistance-helper does MORE THAN HALF the effort. [place] lifts or holds trunk or limbs and provides more than half the effort. 9-Nytolwjbe-omjnso does ALL the effort. Patient does none of the effort to complete the activity. Or, the assistance of 2 or more helpers is required for the patient to complete the activity. If activity was not attempted, code reason: 7-Patient Refused. 9-Not Applicable-not attempted and the patient did not perform the activity before the current illness, exacerbation or injury. 10-Not Attempted due to Environmental Limitations-(lack of equipment, weather restraints, etc.). 88-Not Attempted due to Medical Conditions or Safety Concerns. Roll Left & Right (QC): 2 Sit to Lying (QC): 2 Lying to Sitting/Side of Bed(Q: 2 Sit to Stand (QC): 2 Chair/Ata-aj-Ngqyo Xfer(QC): 2 Wheelchair Training Does the Pt Use a Wheelchair?: Yes Wheel 50 ft with 2 turns (QC): 3 Wheel 150 ft (QC): 3 Type of Wheelchair: Manual Exercises supine LLE stretching in all planes Treatments Propel WC to therapy gym, stand pivot transfer to therapy table, lay down for stretching of LLE (OT performs ROM of LUE), then supine to sit, stand pivot to WC, standing in standing frame for 15 min and working on standing balance and leaning and UE activity, sit back down in WC, stand x3 in parallel bars with max assist for about 2 min each time working on balance, propel WC to room and get laundry, propel to laundry room, propel back to room and stand pivot to bed. Assessment Current Status: Poor Progress no change in mobility, patient seemed more fatigued today PT Short Term Goals Short Term Goals Time Frame: Apr 04, 2020 Roll Left & Right: 3 Sit to lyin Lying to sitting on side of be: 3 Sit to stand: 3 Chair/vqy-zn-gacpi transfer: 2 PT Intermediate Goals Intermediate Goals PT Rn Chemical Dependency Goals Time Frame: Apr 18, 2020 Roll Left & Right (QC): 3 (Pablo) Sit to Lying (QC): 3 (Pablo) Lying-Sitting on Side/Bed(QC): 3 (Pablo) Sit to Stand (QC): 3 (Pablo) Chair/Ghh-fo-Qogye Xfer(QC): 3 (Pablo) Toilet Transfer (QC): 3 (Pablo) Car Transfer (QC): 3 (mod A) Does the Patient Walk: No and Walking Goal NOT indicated Walk 10 feet (QC): 88 Walk 50ft with 2 Turns (QC): 88 Walk 150 ft (QC): 88 Walking 10ft on Uneven Surface: 88 1 Step (curb) (QC): 88 4 Steps (QC): 88 12 Steps (QC): 88 Picking up an Object (QC): 88 Does the Pt use WC or Scooter?: Yes Wheel 50 feet with 2 turns (QC: 3 (Pablo) Type: Manual Wheel 150 feet: 3 (Pablo) Type: Manual PT Plan Problem List Problem List: Activity Tolerance, Functional Strength, Safety, Balance, Gait, Transfer, Bed Mobility, ROM Treatment/Plan Treatment Plan: Continue Plan of Care Treatment Plan: Bed Mobility, Education, Functional Activity [place], Functional Strength, Group Therapy, Gait, Safety, Therapeutic Exercise, Transfers Treatment Duration: Apr 18, 2020 Frequency: At least 5 of 7 days/Wk (IRF) Estimated Hrs Per Day: 1.5 hours per day Patient and/or Family Agrees t: Yes Safety Risks/Education Patient Education: Transfer Techniques, Correct Positioning, W/C Management, Safety Issues Teaching Recipient: Patient Teaching Methods: Demonstration, Discussion Response to Teaching: Reinforcement Needed Time/GCodes Time In: 0800 Time Out: 914 Total Billed Treatment Time: 75 Total Billed Treatment 1 visit [facility] 30' FA 45' Co-treated for 75'. PT performed bed mobility and transfers, standing, balance, LE ROM, WC mobility, OT performed UE ROM, laundry, assist with UE positioning and safety during activity, assist with transfers. MARK RYAN PT Apr 05, 2020 09:25
--- NOTE | 2020-04-05 09:30 | Progress Note - Urology ---
Progress Note-Urology Progress Notes/Assess & Plan Progress/Assessment & Plan WAS UNABLE TO VOID, ECHEVARRIA BACK IN AND STARTED ON URECHOLINE. TOLERATED WELL. NEED TO INCREASE FLUIDS AND WORK ON BOWELS ISSUE. TOV TOMORROW Final Diagnosis URINE RETENTION TIFFANIE WOMACK MD Apr 05, 2020 09:30
--- NOTE | 2020-04-05 10:19 | Speech Therapy Daily Note ---
Speech Daily Progress Note Subjective Date Seen by Provider: Apr 05, 2020 Time Seen by Provider: 00:30 Patient was resting in his bed following his OT and PT session. He states this therapy "is going better." Objective Patient completed simple q/a related to "what's wrong with this picture?" with 85% given minimal repetitions. Assessment Assessment Current Status: Good Progress Treatment Plan Continue Plan of Care Speech Short Term Goals Short Term Goals Short Term Goals 1) Patient will complete memory tasks related to his daily needs at 90% or greater with minimal cues. 2) Patient will complete safety awareness tasks related to his daily needs at 90% or greater with minimal cues. 3) Patient will complete problem solving tasks related to his daily needs at 90% or greater with minimal cues. 4) Patient will tolerate least restrictive diet level without s/s of aspiration at 90% or greater. 5) Patient/caregiver will utilize compensatory strategies as trained at 90% or greater with minimal cues. Speech Care Home Goals Meat Service Team Member Goals Patient will improve cognitive-communication necessary for safety and daily living tasks with minimal assist. Patient will maintain adequate nutrition/hydration via safe effective swallow function. Speech-Plan Patient/Family Goals Patient/Family Goals: Patient plans to return to his home upon discharge. Treatment Plan Speech Therapy Treatment Plan: Continue Plan of Care Treatment Duration: Apr 12, 2020 Frequency: 5 times per week Estimated Hrs Per Day: .5 hour per day Rehab Potential: Good Barriers to Learning: Patient's new onset CVA. Pt/Family Agrees to Plan: Yes Safety Risks/Education Teaching Recipient: Patient, Legal Guardian Teaching Methods: Demonstration, Discussion Response to Teaching: Verbalize Understanding, Return Demonstration Education Topics Provided: Continued safety and communication Time Speech Therapy Time In: 09:15 Speech Therapy Time Out: 09:45 Total Billed Time: 30 Billed Treatment Time 1, BRIAN Ahuja Apr 05, 2020 10:19
--- NOTE | 2020-04-05 10:56 | Occupational Ther Daily Note ---
OT Current Status-Daily Note Subjective Pt. in bed when OT entered room. He reported that he is having some pain in his lower back. Nursing reported that he had already had pain medicine and it was not yet time for more. Pt agreeable to therapy. Mental Status/Objective Patient Orientation: Person, Place Attachments: Pickett Catheter ADL-Treatment Therapy Code Descriptions/Definitions Functional [place] Measure: 0=Not Assessed/NA 4=Minimal Assistance 1=Total Assistance 5=Supervision or Setup 2=Maximal Assistance 6=Modified [place] 3=Moderate Assistance 7=Complete IndependenceSCALE: Activities may be completed with or without assistive devices. 0-Gslfqydfur-eyoxpzy completes the activity by him/herself with no assistance from a helper. 5-Set-up or Clean-up Assistance-helper sets up or cleans up; patient completes activity. [place] assists only prior to or following the activity. 4-Supervision or Touching Assistance-helper provides verbal cues and/or touching/steadying and/or contact guard assistance as patient completes activity. Assistance may be provided throughout the activity or intermittently. 3-Partial/Moderate Assistance-helper does LESS THAN HALF the effort. [place] lifts, holds or supports trunk or limbs, but provides less than half the effort. 2-Substantial/Maximal Assistance-helper does MORE THAN HALF the effort. [place] lifts or holds trunk or limbs and provides more than half the effort. 2-Wolydgfkv-anhjpb does ALL the effort. Patient does none of the effort to complete the activity. Or, the assistance of 2 or more helpers is required for the patient to complete the activity. If activity was not attempted, code reason: 7-Patient Refused. 9-Not Applicable-not attempted and the patient did not perform the activity before the current illness, exacerbation or injury. 10-Not Attempted due to Environmental Limitations-(lack of equipment, weather restraints, etc.). 88-Not Attempted due to Medical Conditions or Safety Concerns. Oral Hygiene (QC): 5 Co-treated with PT due to the need of 2 skilled therapists due to medical complexity. Pt. in bed when OT entered room. He tolerated 8 minutes PROM of L UE joints in all planes to decrease tone. Pt. required max assist for bed mobility to roll for doctor to listen to lungs. Pt max A for donning footwear. He required assist x2 for supine to sit EOB verbal cues to bend at waist and maintain upright sitting. Once at EOB, max A x2 needed for SPT to w/c. Pt. taken to bathroom and required set-up assistance for oral hygiene while seated at sink. Pt. then self-propelled to gym with mod A for turns and extra time. Once in gym, pt. transferred to mat with assist x2. Max assist x2 required for sit- supine. Continued ROM to L UE to increased L UE awareness and decrease tone. No purposeful active movement noted, during transfers, standing/mobility increased tone noted in hand and retracts L scapula which twist upper torso. Pt then positioned in standing frame to work on prolonged standing to increase tolerance for standing. Wt bearing in standing through elbow then hand. Working on scanning and problem solving during standing frame task. Pt demonstrated L field cut during activity and required gestural and verbal cues. Pt then working on standing at parallel bars, see PT notes for progress. After session, pt lying in bed with call light/phone in reach. All needs met in room. OT Short Term Goals Short Term Goals Time Frame: Apr 11, 2020 Eatin Oral hygiene: 3 Toileting hygiene: 3 Shower/bathe self: 2 Upper body dressin Lower body dressin Putting on/taking off footwear: 2 OT Rolling Chair Pusher Goals Residential Goals Time Frame: Apr 25, 2020 Eating (QC): 4 Oral Hygiene (QC): 4 Toileting Hygiene (QC): 3 Shower/Bathe Self (QC): 3 Upper Body Dressing (QC): 4 Lower Body Dressing (QC): 4 On/Off Footwear (QC): 4 Additional Goals: 1-Demonstrate ADL Tasks, 2-Verbalize Understanding, 3- ImproveStrength/[place] 1=Demonstrate adherence to instructed precautions during ADL tasks. 2=Patient will verbalize/demonstrate understanding of assistive devices/modifications for ADL. 3=Patient will improve strength/tolerance for activity to enable patient to perform ADL's. OT Education/Plan Problem List/Assessment Assessment: Decreased Activ Tolerance, Decreased Safety Aware, Decreased UE Strength, Dependent Transfers, Impaired Bed Mobility, Impaired Coordination, Impaired Funct Balance, Impaired I ADL's, Impaired Self-Care Skills, Restricted Funct UE ROM, Visual-Perceptual Deficit Discharge Recommendations Plan/Recommendations: Continue POC Treatment Plan/Plan of Care Patient would benefit from OT for education, treatment and training to promote independence in ADL's, mobility, safety and/or upper extremity function for ADL's. Plan of Care: ADL Retraining, Functional Mobility, UE Funct Exercise/Act, UE Neuromus Re-Ed/Coord, Visual/Perceptual Retrain Treatment Duration: Apr 25, 2020 Frequency: At least 5 of 7 days/Wk (IRF) Estimated Hrs Per Day: 1.5 hours per day Agreement: Yes Rehab Potential: Good Time/GCodes Start Time: 07:15 Stop Time: 09:15 Total Time Billed (hr/min): 90 Billed Treatment Time 1 visit-ADL 2 (30 min) NM 4 (60 min) JOSIAH ESCALANTE Apr 05, 2020 10:56
--- NOTE | 2020-04-05 13:53 | NUR ---
"RD ASSESSMENT PMHx: HTN; developmental disorder PT INTERACTION: Pt was awake and pleasant during nutrition follow-up. Pt states he has been eating okay since last assessment. Note avg PO intake 50-75% x4d, per chart review. Pt states no issues with nausea, vomiting, or diarrhea since last assessment. Pt states some issues with constipation since last assessment. Note last BM was 03/31 and pt currently on bowel regimen of colace BID; senna BID; and miralax BID, per chart review. ABNORMAL NUTRITION-RELATED LAB VALUES LOW: HIGH: BNU 23; glu 126; AST 55; ALT 60 Est. kcal needs: 1775 kcal | 20 kcal/kg Est. Pro needs: 71 g Pro | 0.8 g Pro/kg PES STATEMENT: Inadequate oral intake (NI-2.1) related to constipation as evidenced by pt interview | avg PO intake 50-75% x4d INTERVENTION: Continue with current diet order of DYS2 Mechanically Altered diet. Pt may benefit from nutrition supplementation if PO intake declines. Encouraged pt to eat when able. Will continue to follow and reassess as pt needs, intake, and status change. MONITOR/EVALUATE: PO Intake; Plan of Care; Hydration Status; Weight Status; Lab Values Jodi Hassan, MS, RD, LD"
[2020-04-05] MEDS: BACLOFEN 10 MG (LIORESAL) TAB PO PRN ×2 (15:52→20:23)
[2020-04-05] MEDS: BISACODYL 10 MG SUPP (DULCOLAX) PR PRN (15:52)
[2020-04-05] MEDS: ENOXAPARIN 40 MG/0.4 ML (LOVENOX) SYR SC SCH (16:28)
[2020-04-05] MEDS: TAMSULOSIN 0.4 MG (FLOMAX) CAP PO SCH (16:50)
[2020-04-05 18:00] VITALS: BP 162/77
[2020-04-05] MEDS: ACETAMINOPHEN 325 MG TABLET PO PRN (18:20)
[2020-04-05] MEDS: SERTRALINE 50 MG (ZOLOFT) TABLET PO SCH (20:23)
[2020-04-06] MEDS: BACLOFEN 10 MG (LIORESAL) TAB PO PRN ×4 (02:45→17:09)
[2020-04-06 05:17] VITALS: BP 159/85
--- NOTE | 2020-04-06 06:00 | NUR ---
PATIENT REFUSED REPOSITIONING MULTIPLE TIMES THROUGH THE NIGHT. PATIENT IS ABLE TO MAKE SLIGHT ADJUSTMENTS IN BODY POSITION, BUT NOT MAJOR ONES. THIS NURSE EXPLAINED TO PATIENT THE IMPORTANCE OF REPOSITIONING, PATIENT VERBALIZED UNDERSTANDING BUT STATED HE WOULD USE CALL BUTTON WHEN HE WAS READY TO BE REPOSITIONED.
[2020-04-06] MEDS: BETHANECHOL 25 MG (URECHOLINE) TAB PO SCH ×4 (06:42→21:19)
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
--- NOTE | 2020-04-06 08:00 | NUR ---
DENIES PAIN. STATES "MUSCLE RELAXANT REALLY HELPS". STATES HAS MILD LEFT ARM MOVEMENT, BUT NOT MUCH. FEELS HAVING A BIT MORE TROUBLE SWALLOWING WHICH STARTED YESTERDAY - ESPECIALLY WITH PILLS. MEDICATIONS WILL NOW BE CRUSHED.
[2020-04-06] MEDS: ASPIRIN 325 MG (5 GR) TABLET PO SCH (08:45)
[2020-04-06] MEDS: DOCUSATE SODIUM 100 MG (COLACE) CAP PO SCH ×2 (08:45→21:28)
[2020-04-06] MEDS: polyethylene glycoL POWDER 17 GM (MIRALAX) PACK PO SCH ×2 (08:46→21:28)
[2020-04-06] MEDS: SENNA W/DOCUSATE (SENOKOT S) TABLET PO SCH ×2 (08:46→21:28)
--- NOTE | 2020-04-06 11:00 | NUR ---
SCOPALAMINE PATCH NOT REMOVED BECAUSE IT WAS NOT PUT ON.
--- NOTE | 2020-04-06 11:10 | Physical Therapy Daily Note ---
PT Daily Note-Current Subjective Pt c/o "My back hurts" upon arrival. Pain rated 6/10 upon arrival. Pt agreeable. Pt reports back "feels much better" post therapy session. Pt states "That went better than I thought it would" post therapy session. Mental Status Patient Orientation: Person, Place Attachments: Pickett Catheter Transfers SCALE: Activities may be completed with or without assistive devices. 5-Espzxbrdbc-uccywvt completes the activity by him/herself with no assistance from a helper. 5-Set-up or Clean-up Assistance-helper sets up or cleans up; patient completes activity. [place] assists only prior to or following the activity. 4-Supervision or Touching Assistance-helper provides verbal cues and/or touching/steadying and/or contact guard assistance as patient completes activity. Assistance may be provided throughout the activity or intermittently. 3-Partial/Moderate Assistance-helper does LESS THAN HALF the effort. [place] lifts, holds or supports trunk or limbs, but provides less than half the effort. 2-Substantial/Maximal Assistance-helper does MORE THAN HALF the effort. [place] lifts or holds trunk or limbs and provides more than half the effort. 4-Ywyybruac-lrxkkm does ALL the effort. Patient does none of the effort to complete the activity. Or, the assistance of 2 or more helpers is required for the patient to complete the activity. If activity was not attempted, code reason: 7-Patient Refused. 9-Not Applicable-not attempted and the patient did not perform the activity before the current illness, exacerbation or injury. 10-Not Attempted due to Environmental Limitations-(lack of equipment, weather restraints, etc.). 88-Not Attempted due to Medical Conditions or Safety Concerns. Mod A x 2 for SPT bed -> w/c, w/c -> recliner. Pt was mod A x 2 for sit to stand transfers. Treatments Pt taken to //bars via w/c. Pt practiced standing x 5 bouts, approximately 30- 60 sec each bout. Manual support required to maintain body in midline, (L) foot/knee/hip to maintain alignment and extension. Knee blocked for weightshift R-L. Pt back to recliner with mod A x 2 for SPT, pulled up manually for proper positioning. Limbs floating on pillows and (L) hand in splint. Legs elevated. Assessment Current Status: Good Progress Pt weak (L) side requiring manual assist for placement/support of extremities and blocking during standing. Pt impulsive at times but listens well and adjusts as needed. SPT showed good control due to good strength on (R) side. Pt resting with call light and all needs met post therapy session. PT Short Term Goals Short Term Goals Time Frame: Apr 04, 2020 Roll Left & Right: 3 Sit to lyin Lying to sitting on side of be: 3 Sit to stand: 3 Chair/uzt-yp-anxbk transfer: 2 PT Resident Intern Goals Snf Goals PT Snf Goals Time Frame: Apr 18, 2020 Roll Left & Right (QC): 3 (Pablo) Sit to Lying (QC): 3 (Pablo) Lying-Sitting on Side/Bed(QC): 3 (Pablo) Sit to Stand (QC): 3 (Pablo) Chair/Oxa-ir-Hmynp Xfer(QC): 3 (Pablo) Toilet Transfer (QC): 3 (Pablo) Car Transfer (QC): 3 (mod A) Does the Patient Walk: No and Walking Goal NOT indicated Walk 10 feet (QC): 88 Walk 50ft with 2 Turns (QC): 88 Walk 150 ft (QC): 88 Walking 10ft on Uneven Surface: 88 1 Step (curb) (QC): 88 4 Steps (QC): 88 12 Steps (QC): 88 Picking up an Object (QC): 88 Does the Pt use WC or Scooter?: Yes Wheel 50 feet with 2 turns (QC: 3 (Pablo) Type: Manual Wheel 150 feet: 3 (Pablo) Type: Manual PT Plan Treatment/Plan Treatment Plan: Continue Plan of Care Treatment Plan: Bed Mobility, Education, Functional Activity [place], Functional Strength, Group Therapy, Gait, Safety, Therapeutic Exercise, Transfers Treatment Duration: Apr 18, 2020 Frequency: At least 5 of 7 days/Wk (IRF) Estimated Hrs Per Day: 1.5 hours per day Patient and/or Family Agrees t: Yes Time/GCodes Time In: 856 Time Out: 935 Total Billed Treatment Time: 39 Total Billed Treatment 1, FA x 3 PASCUAL MACIAS CPTA Apr 06, 2020 11:10
[2020-04-06] MEDS: PATCH REMOVAL TP SCH (11:43)
[2020-04-06] MEDS: HYDROcodone/APAP 5 MG/325 MG (LORTAB) TAB PO PRN (13:19)
--- NOTE | 2020-04-06 13:54 | Progress Note - Cardiology ---
Cardiology SOAP Progress Note Subjective: No cp or palp or syncope or shortness of breath at rest Gen weakness and focal weakness as before Objective: I&O/Vital Signs 04/06/20 04/06/20 05:17 09:00 Temp 36.8 Pulse 82 Resp 18 B/P (MAP) 159/85 (109) Pulse Ox 95 O2 Delivery Room Air Room Air 04/06/20 00:00 Intake Total 1130 ml Output Total 400 ml Balance 730 ml Constitutional: AAO x 3, PERRL, well-developed, well-nourished Respiratory: chest is bilaterally symmetric, lungs clear to auscultation Cardiovascular: regular rate-rhythm, S1 and S2 Gastrointestional: soft, audible bowel sounds Extremities: no lower extremity edema bilateral Neurologic/Psychiatric: facial droop (left), other (left sided flaccid) Skin: No rash on exposed areas, No ulcerations on exposed areas A/P: Assessment: Hypertension, not well controlled Cryptogenic stroke - ILR implanted on 03-26-[address] Arevalo Non-occlusive carotid dz, minimal plaque seen on carotid u/s of March 25, 2020 Echocardiogram of March 26, [address] Arevalo: 55-65% showed normal LV function with no wall motion abnormalities. Negative bubble study ruled out significant intracardiac shunting (+) COVID antibody on testing of March 25, 2020 Plan: Add bb for bp control Monitor labs from time to time ISABELL BEATTY MD FACP [facility] Apr 06, 2020 13:54
--- NOTE | 2020-04-06 14:00 | NUR ---
BACK TO BED PER ROBERTA LIFT.
--- NOTE | 2020-04-06 14:15 | NUR ---
ECHEVARRIA CATHETER DC'D ORDERED. ORDER RECEIVED TO STRAIGHT CATH IF BLADDER SCAN SHOWS 350 CC. IF HAVE TO STRAIGHT CATH OVER 2 TIMES, MAY LEAVE ECHEVARRIA CATHETER IN AND INCREASE URECHOLINE TO 50 MG ACHS.
[2020-04-06] MEDS: ENOXAPARIN 40 MG/0.4 ML (LOVENOX) SYR SC SCH (17:04)
[2020-04-06] MEDS: TAMSULOSIN 0.4 MG (FLOMAX) CAP PO SCH (17:04)
[2020-04-06 18:00] VITALS: BP 144/75
--- NOTE | 2020-04-06 18:30 | NUR ---
BLADDER SCAN SHOWS 161 CC. PATIENT DENIES BLADDER DISCOMFORT OR NEED TO VOID.
--- NOTE | 2020-04-06 19:09 | NUR ---
bedside report received from MARY BETH LOMAX, assume care of pt
[2020-04-06] MEDS: SERTRALINE 50 MG (ZOLOFT) TABLET PO SCH (21:19)
--- NOTE | 2020-04-06 21:19 | NUR ---
pt refused Colace, miralax & Senokot, took meds crushed in pudding, states no trouble water but trouble with pills, no problems with swallowing crushed pills in pudding, states feels no need to void yet
--- NOTE | 2020-04-06 23:20 | NUR ---
pt tried to void but unable to void states do not feel full, bladder scan showed 276ml advised let this nurse know if feels full or uncomfortable, pt agreed
--- NOTE | 2020-04-07 03:30 | NUR ---
pt tried to uoid but was unable to void, bladder scan showed 457ml
[2020-04-07] MEDS ORDERED: LIDOCAINE UROJET 2% GEL 10 ML PKG ONE ×3 (03:37→12:04)
--- NOTE | 2020-04-07 03:50 | NUR ---
straight cath & received 400ml sandi colored urine
[2020-04-07] MEDS: BACLOFEN 10 MG (LIORESAL) TAB PO PRN ×4 (04:06→17:21)
--- NOTE | 2020-04-07 04:06 | NUR ---
pt rated pain 6/10 on numeric scale but wanted muscle relaxer, Lioresal 5mg given
--- NOTE | 2020-04-07 04:15 | NUR ---
pt called this nurse in room wanting pain pill now advised will give muscle relaxer little time & if still hurting in an hour would give pain pill
[2020-04-07] MEDS: DICLOFENAC 1% GEL 100 GM (VOLTAREN) TUBE TOP PRN (04:44)
--- NOTE | 2020-04-07 04:44 | NUR ---
pt wanted Voltaren gel for back
[2020-04-07] MEDS: HYDROcodone/APAP 5 MG/325 MG (LORTAB) TAB PO PRN (05:02)
--- NOTE | 2020-04-07 05:02 | NUR ---
states pain is 10/10 on numeric scale, Lortab 1 tab given
[2020-04-07 05:15] VITALS: BP 148/87
[2020-04-07] MEDS: BETHANECHOL 25 MG (URECHOLINE) TAB PO SCH ×4 (06:05→21:14)
[2020-04-07 08:00] VITALS: BP 137/73
[2020-04-07] MEDS: ASPIRIN 325 MG (5 GR) TABLET PO SCH (08:33)
[2020-04-07] MEDS: SENNA W/DOCUSATE (SENOKOT S) TABLET PO SCH ×2 (08:33→21:14)
[2020-04-07] MEDS: meTOproloL SUCCINATE 50 MG (TOPROL XL) TAB PO SCH (08:34)
[2020-04-07] MEDS: DOCUSATE SODIUM 100 MG (COLACE) CAP PO SCH ×2 (08:35→21:27)
[2020-04-07] MEDS: polyethylene glycoL POWDER 17 GM (MIRALAX) PACK PO SCH ×2 (08:35→21:27)
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
--- NOTE | 2020-04-07 09:00 | NUR ---
BLADDER SCAN SHOWED 438 CC AT 0845. STRAIGHT CATH DONE AND 450 CC STRONG SMELLING ALEX URINE. DENIES DIFFICULTY IN SWALLOWING TODAY. CRUSHED MEDS WORKING WELL.
--- NOTE | 2020-04-07 10:00 | NUR ---
ASSISTED UP TO SHOWER AND THEN TO RECLINER WITH ROBERTA LIFT. VISITING AND SHAVED PATIENT.
--- NOTE | 2020-04-07 14:00 | NUR ---
STATES DID FEEL THAT BLADDER WAS FULL AND WAS INCONTINENT OF A MODERATE AMOUNT OF URINE. BLADDER SCAN THEN SHOWED 343 CC. PATIENT REQUESTED TO WAIT OF ECHEVARRIA CATHETER - FEELS MAY BE ABLE TO VOID LATER.
--- NOTE | 2020-04-07 16:15 | NUR ---
UNABLE TO VOID. BLADDER SCAN SHOWED 367 CC. #16 FR. ECHEVARRIA CATHETER INSERTED WITHOUT DIFFICULTY. URECHOLINE INCREASED TO 50 MG ACHS. STATES PATIENT CALLED HER 10 TIMES DURING THE NIGHT BECAUSE HE COULDN'T SLEEP. BACLOFEN 10 MG WILL BE ADDED AT HS TO HELP REST.
[2020-04-07] MEDS: ENOXAPARIN 40 MG/0.4 ML (LOVENOX) SYR SC SCH (16:36)
[2020-04-07] MEDS: TAMSULOSIN 0.4 MG (FLOMAX) CAP PO SCH (17:21)
[2020-04-07 18:10] VITALS: BP 126/75
--- NOTE | 2020-04-07 19:05 | NUR ---
bedside report received from MARY BETH LOMAX, assume care of pt
[2020-04-07] MEDS ORDERED: BETHANECHOL 25 MG (URECHOLINE) TAB PO SCH (21:00)
[2020-04-07] MEDS: BACLOFEN 10 MG (LIORESAL) TAB PO SCH (21:14)
--- NOTE | 2020-04-07 21:14 | NUR ---
pt took Senokot refused colace & miralax, pt denies need of pain pill at this time
[2020-04-07] MEDS: SERTRALINE 50 MG (ZOLOFT) TABLET PO SCH (21:24)
[2020-04-08 05:05] LABS: BASOPHILS % (AUTO) 0 % (0-10); EOSINOPHILS # (AUTO) 0.3 10^3/uL (0.0-0.3); EOSINOPHILS % (AUTO) 3 % (0-10); HEMATOCRIT 39 % (40-54); HEMOGLOBIN 12.7 G/DL (13.3-17.7); LYMPHOCYTES # (AUTO) 2.4 X 10^3 (1.0-4.0); LYMPHOCYTES % (AUTO) 19 % (12-44); MEAN CORPUSCULAR HEMOGLOBIN 29 PG (25-34); MEAN CORPUSCULAR HGB CONC 33 G/DL (32-36); MEAN CORPUSCULAR VOLUME 88 FL (80-99); MEAN PLATELET VOLUME 10.9 FL (7.4-10.4); MONOCYTES # (AUTO) 0.7 X 10^3 (0.0-1.0); MONOCYTES % (AUTO) 6 % (0-12); NEUTROPHILS # (AUTO) 8.9 X 10^3 (1.8-7.8); NEUTROPHILS % (AUTO) 72 % (42-75); PLATELET COUNT 288 10^3/uL (130-400); WHITE BLOOD COUNT 12.3 10^3/uL (4.3-11.0)
[2020-04-08 05:21] LABS: ALBUMIN 3.7 GM/DL (3.2-4.5); CHLORIDE 102 MMOL/L (98-107); SODIUM 136 MMOL/L (135-145)
[2020-04-08 05:23] LABS: CALCIUM 9.1 MG/DL (8.5-10.1)
[2020-04-08 05:24] LABS: GLUCOSE 108 MG/DL (70-105); TOTAL PROTEIN 6.9 GM/DL (6.4-8.2)
[2020-04-08 05:25] LABS: CARBON DIOXIDE 22 MMOL/L (21-32)
[2020-04-08 05:26] LABS: BILIRUBIN,TOTAL 0.5 MG/DL (0.1-1.0)
[2020-04-08 05:27] LABS: ALKALINE PHOSPHATASE 64 U/L (40-136); CREATININE SERUM 0.72 MG/DL (0.60-1.30); GFR ESTIMATED > 60
[2020-04-08 05:28] LABS: BUN/CREATININE RATIO 28
[2020-04-08 05:30] LABS: ALANINE AMINOTRANSFERASE 37 U/L (0-55)
[2020-04-08 05:41] VITALS: BP 135/76
[2020-04-08] MEDS: BETHANECHOL 25 MG (URECHOLINE) TAB PO SCH ×4 (06:14→23:09)
[2020-04-08] MEDS: meTOproloL SUCCINATE 50 MG (TOPROL XL) TAB PO SCH (07:39)
[2020-04-08] MEDS: SENNA W/DOCUSATE (SENOKOT S) TABLET PO SCH ×2 (07:39→23:09)
[2020-04-08] MEDS: ASPIRIN 325 MG (5 GR) TABLET PO SCH (07:39)
[2020-04-08] MEDS: polyethylene glycoL POWDER 17 GM (MIRALAX) PACK PO SCH ×2 (07:41→23:15)
[2020-04-08] MEDS: DOCUSATE SODIUM 100 MG (COLACE) CAP PO SCH ×2 (07:44→23:09)
[2020-04-08 08:07] VITALS: BP 149/71
--- NOTE | 2020-04-08 08:08 | Speech Therapy Daily Note ---
Speech Daily Progress Note Subjective Date Seen by Provider: Apr 08, 2020 Time Seen by Provider: 00:30 Patient alert and talkative this morning. Patient stated he had a good weekend. Objective Patient completed a series of history trivia. Patient states history has always been his favorite subject. Patient completed task at 90% with 10% v/c's and/or repetitions. Assessment Assessment Current Status: Good Progress Treatment Plan Continue Plan of Care Speech Short Term Goals Short Term Goals Short Term Goals 1) Patient will complete memory tasks related to his daily needs at 90% or greater with minimal cues. 2) Patient will complete safety awareness tasks related to his daily needs at 90% or greater with minimal cues. 3) Patient will complete problem solving tasks related to his daily needs at 90% or greater with minimal cues. 4) Patient will tolerate least restrictive diet level without s/s of aspiration at 90% or greater. 5) Patient/caregiver will utilize compensatory strategies as trained at 90% or greater with minimal cues. Speech Long-Term Goals Supervisor Facepiece Line Goals Patient will improve cognitive-communication necessary for safety and daily living tasks with minimal assist. Patient will maintain adequate nutrition/hydration via safe effective swallow function. Speech-Plan Patient/Family Goals Patient/Family Goals: Patient plans on returning to his home where he lives with his . Treatment Plan Speech Therapy Treatment Plan: Continue Plan of Care Treatment Duration: Apr 12, 2020 Frequency: 5 times per week Estimated Hrs Per Day: .5 hour per day Rehab Potential: Good Barriers to Learning: Patient's recent CVA after affects Pt/Family Agrees to Plan: Yes Safety Risks/Education Teaching Recipient: Patient Teaching Methods: Demonstration, Discussion Response to Teaching: Verbalize Understanding, Return Demonstration Education Topics Provided: Continued communication of his wants/needs Time Speech Therapy Time In: 07:30 Speech Therapy Time Out: 08:00 Total Billed Time: 30 Billed Treatment Time 1, BRIAN Ahuja Apr 08, 2020 08:08
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
--- NOTE | 2020-04-08 10:13 | Physical Therapy Daily Note ---
PT Daily Note-Current Subjective Patient in bed pre tx, agrees to PT, has no complaints of pain. Will be co- treating with OT due to poor patient mobility, strength, endurance, sitting and standing balance, left hemiparesis, pushers syndrome. Patient needs dressed lower and brief put on. Appearance Patient in recliner post tx with nurse call, phone, tray, all needs met, legs elevated, family in the room. Mental Status Patient Orientation: Person, Place, Situation Attachments: [place] Catheter Transfers SCALE: Activities may be completed with or without assistive devices. 1-Voctbwibbk-tpfraub completes the activity by him/herself with no assistance from a helper. 5-Set-up or Clean-up Assistance-helper sets up or cleans up; patient completes activity. [place] assists only prior to or following the activity. 4-Supervision or Touching Assistance-helper provides verbal cues and/or touching/steadying and/or contact guard assistance as patient completes activity. Assistance may be provided throughout the activity or intermittently. 3-Partial/Moderate Assistance-helper does LESS THAN HALF the effort. [place] lifts, holds or supports trunk or limbs, but provides less than half the effort. 2-Substantial/Maximal Assistance-helper does MORE THAN HALF the effort. [place] lifts or holds trunk or limbs and provides more than half the effort. 9-Vbjywuuxd-qsaqzg does ALL the effort. Patient does none of the effort to complete the activity. Or, the assistance of 2 or more helpers is required for the patient to complete the activity. If activity was not attempted, code reason: 7-Patient Refused. 9-Not Applicable-not attempted and the patient did not perform the activity before the current illness, exacerbation or injury. 10-Not Attempted due to Environmental Limitations-(lack of equipment, weather restraints, etc.). 88-Not Attempted due to Medical Conditions or Safety Concerns. Roll Left & Right (QC): 2 Sit to Lying (QC): 1 Lying to Sitting/Side of Bed(Q: 1 Sit to Stand (QC): 1 Chair/Grf-zx-Xijzq Xfer(QC): 1 Patient had a decline in sit to stand and stand pivot transfers today. Patient extends back severely when trying to stand and transfer, not retropuslsive per se but essentially is similar. Treatments Dressing lowers in bed and put on brief, rolling to each side with max assist, supine to sit with dependence, transfer to WC, WC training to therapy gym mod/max assist 150', standing in standing frame 15', requires max assist to maintain position, patient extends back and rotates to the left, sit back down and LLE stretching/ROM, propel WC back to room, transfer to recliner. PT performed bed mobility and transfers, standing, WC mobility, assist with dressing, OT performed dressing, UE activity in standing frame, assist with transfers. Assessment Current Status: Poor Progress decline in sit to stand and transfers. PT Short Term Goals Short Term Goals Time Frame: Apr 04, 2020 Roll Left & Right: 3 Sit to lyin Lying to sitting on side of be: 3 Sit to stand: 3 Chair/slz-jt-qgbwx transfer: 2 PT Senior Living Goals Senior Living Goals PT Senior Living Goals Time Frame: Apr 18, 2020 Roll Left & Right (QC): 3 (Pablo) Sit to Lying (QC): 3 (Pablo) Lying-Sitting on Side/Bed(QC): 3 (Pablo) Sit to Stand (QC): 3 (Pablo) Chair/Kup-ip-Agupt Xfer(QC): 3 (Pablo) Toilet Transfer (QC): 3 (Pablo) Car Transfer (QC): 3 (mod A) Does the Patient Walk: No and Walking Goal NOT indicated Walk 10 feet (QC): 88 Walk 50ft with 2 Turns (QC): 88 Walk 150 ft (QC): 88 Walking 10ft on Uneven Surface: 88 1 Step (curb) (QC): 88 4 Steps (QC): 88 12 Steps (QC): 88 Picking up an Object (QC): 88 Does the Pt use WC or Scooter?: Yes Wheel 50 feet with 2 turns (QC: 3 (Pablo) Type: Manual Wheel 150 feet: 3 (Pablo) Type: Manual PT Plan Problem List Problem List: Activity Tolerance, Functional Strength, Safety, Balance, Gait, Transfer, Bed Mobility, ROM Treatment/Plan Treatment Plan: Continue Plan of Care Treatment Plan: Bed Mobility, Education, Functional Activity [place], Functional Strength, Group Therapy, Gait, Safety, Therapeutic Exercise, Transfers Treatment Duration: Apr 18, 2020 Frequency: At least 5 of 7 days/Wk (IRF) Estimated Hrs Per Day: 1.5 hours per day Patient and/or Family Agrees t: Yes Safety Risks/Education Patient Education: Transfer Techniques, Correct Positioning, W/C Management, Safety Issues Teaching Recipient: Patient Teaching Methods: Demonstration, Discussion Response to Teaching: Reinforcement Needed Time/GCodes Time In: 0900 Time Out: 1015 Total Billed Treatment Time: 75 Total Billed Treatment 1 visit FA 75' MARK RYAN PT Apr 08, 2020 10:13
--- NOTE | 2020-04-08 10:13 | Occupational Ther Daily Note ---
OT Current Status-Daily Note Subjective Pt alert, lying in bed. Daughter present today. Pt agrees to therapy. No c/o pain initially then c/o back pain during standing. Mental Status/Objective Patient Orientation: Person, Place, Time, Situation ADL-Treatment Therapy Code Descriptions/Definitions Functional [place] Measure: 0=Not Assessed/NA 4=Minimal Assistance 1=Total Assistance 5=Supervision or Setup 2=Maximal Assistance 6=Modified [place] 3=Moderate Assistance 7=Complete IndependenceSCALE: Activities may be completed with or without assistive devices. 6-Kxcceuhfln-pgovbcm completes the activity by him/herself with no assistance from a helper. 5-Set-up or Clean-up Assistance-helper sets up or cleans up; patient completes activity. [place] assists only prior to or following the activity. 4-Supervision or Touching Assistance-helper provides verbal cues and/or touching/steadying and/or contact guard assistance as patient completes activity. Assistance may be provided throughout the activity or intermittently. 3-Partial/Moderate Assistance-helper does LESS THAN HALF the effort. [place] lifts, holds or supports trunk or limbs, but provides less than half the effort. 2-Substantial/Maximal Assistance-helper does MORE THAN HALF the effort. [place] lifts or holds trunk or limbs and provides more than half the effort. 5-Omynxdoxk-kwpqak does ALL the effort. Patient does none of the effort to complete the activity. Or, the assistance of 2 or more helpers is required for the patient to complete the activity. If activity was not attempted, code reason: 7-Patient Refused. 9-Not Applicable-not attempted and the patient did not perform the activity before the current illness, exacerbation or injury. 10-Not Attempted due to Environmental Limitations-(lack of equipment, weather restraints, etc.). 88-Not Attempted due to Medical Conditions or Safety Concerns. Oral Hygiene (QC): 5 Other Treatment Co-treated with PT due to the need of 2 skilled therapists due to medical complexity. Pt. in bed when OT entered room. Dependent for donning/doffing lower body clothing supine in bed. Pt max A for donning footwear. He required assist x2 for supine to sit EOB verbal cues to bend at waist and maintain upright sitting. Once at EOB, max A x2 needed for SPT to w/c. Pt. then self-propelled to gym with mod A for turns and extra time. Once in gym, pt. transferred to mat with assist x2. Max assist x2 required for sit-supine. Continued ROM to L UE to increased L UE awareness and decrease tone. No purposeful active movement noted, during transfers, standing/mobility increased tone noted in hand and retracts L scapula which twist upper torso. Pt then positioned in standing fram e to work on prolonged standing to increase tolerance for standing. Wt bearing in standing through elbow then hand. Working on scanning and problem solving during standing frame task. Pt demonstrated L field cut during activity and required gestural and verbal cues. Pt then working on standing at parallel bars, see PT notes for progress. Pt. required set-up assistance for oral hygiene while seated in recliner. After session, pt sitting in recliner with call light/phone in reach. All needs met in room. Education OT Patient Education: Transfer techniques Teaching Recipient: Patient Teaching Methods: Demonstration Response to Teaching: Reinforcement Needed OT Short Term Goals Short Term Goals Time Frame: Apr 11, 2020 Eatin Oral hygiene: 3 Toileting hygiene: 3 Shower/bathe self: 2 Upper body dressin Lower body dressin Putting on/taking off footwear: 2 OT Group Home Goals Political Science Faculty Member Goals Time Frame: Apr 25, 2020 Eating (QC): 4 Oral Hygiene (QC): 4 Toileting Hygiene (QC): 3 Shower/Bathe Self (QC): 3 Upper Body Dressing (QC): 4 Lower Body Dressing (QC): 4 On/Off Footwear (QC): 4 Additional Goals: 1-Demonstrate ADL Tasks, 2-Verbalize Understanding, 3- ImproveStrength/[place] 1=Demonstrate adherence to instructed precautions during ADL tasks. 2=Patient will verbalize/demonstrate understanding of assistive devices/modifications for ADL. 3=Patient will improve strength/tolerance for activity to enable patient to perform ADL's. OT Education/Plan Problem List/Assessment Assessment: Decreased Activ Tolerance, Decreased Safety Aware (impulsive, pusher syndrome), Decreased UE Strength, Dependent Transfers, Impaired Bed Mobility, Impaired Coordination, Impaired Funct Balance, Impaired I ADL's, Impaired Self-Care Skills, Restricted Funct UE ROM, Visual-Perceptual Deficit Discharge Recommendations Plan/Recommendations: Continue POC Treatment Plan/Plan of Care Patient would benefit from OT for education, treatment and training to promote independence in ADL's, mobility, safety and/or upper extremity function for ADL's. Plan of Care: ADL Retraining, Functional Mobility, UE Funct Exercise/Act, UE Neuromus Re-Ed/Coord, Visual/Perceptual Retrain Treatment Duration: Apr 25, 2020 Frequency: At least 5 of 7 days/Wk (IRF) Estimated Hrs Per Day: 1.5 hours per day Agreement: Yes Rehab Potential: Good Time/GCodes Start Time: 09:00 Stop Time: 10:15 Total Time Billed (hr/min): 75 Billed Treatment Time 1 visit-ADL 1 (20 min) NM 4 (55 min) co-treat with PT [id number] JOSIAH ESCALANTE Apr 08, 2020 10:13
--- NOTE | 2020-04-08 11:01 | Progress Note - Urology ---
Progress Note-Urology Progress Notes/Assess & Plan Progress/Assessment & Plan UNABLE TO VOID AGAIN. URECHOLINE INCREASED TO 50 AND TOLERATED WELL. PLAN TOV PER ORDERS Final Diagnosis URINE RETENTION TIFFANIE WOMACK MD Apr 08, 2020 11:01
--- NOTE | 2020-04-08 11:11 | NUR ---
DR. WOMACK HERE WITH ORDERS TO DC ECHEVARRIA. POST VOID BLADDER SCAN PRN AND STRAIGHT CATH IF OVER 350. AFTER 2 TIMES, REINSERT ECHEVARRIA AND INCREASE FLOMAX TO BID.
--- NOTE | 2020-04-08 13:54 | NUR ---
ECHEVARRIA CATHETER REMOVED PER ORDERS.
[2020-04-08] MEDS: TAMSULOSIN 0.4 MG (FLOMAX) CAP PO SCH (17:25)
[2020-04-08] MEDS: ENOXAPARIN 40 MG/0.4 ML (LOVENOX) SYR SC SCH (17:28)
[2020-04-08 18:34] VITALS: BP 137/79
--- NOTE | 2020-04-08 18:35 | NUR ---
STILL HAS NOT VOIDED AND DENIES THE URGE. BLADDER SCAN DONE AND SHOWING 241MLS. WILL CONTINUE TO MONITOR.
--- NOTE | 2020-04-08 21:15 | NUR ---
BLADDER SCAN DONE, 409ML NOTED. PATIENT WANTED TO USE URINAL. 450ML URINE OUTPUT IN URINAL. PVR WAS 27ML.
[2020-04-08] MEDS: SERTRALINE 50 MG (ZOLOFT) TABLET PO SCH (23:09)
[2020-04-08] MEDS: BACLOFEN 10 MG (LIORESAL) TAB PO SCH (23:09)
--- NOTE | 2020-04-09 05:00 | NUR ---
BLADDER SCAN DONE, 128ML NOTED. WILL CONTINUE TO MONITOR.
[2020-04-09 05:41] VITALS: BP 156/78
--- NOTE | 2020-04-09 06:49 | PM&R Progress Note ---
Subjective HPI/CC On Admission Date Seen by Provider: Apr 09, 2020 Time Seen by Provider: 10:00 Subjective/Events-last exam Voiding in urinal and bladder scan only showed 200cc Flomax and Urecholine maintained Post void checks per urology Overall doing very well Pain is much better No falls Walked a little bit today with a lot of help Baclofen 10mg at night helping his rest Checked meds and labs Conferred with RN Reviewed therapy notes Objective Exam Vital Signs Vital Signs Date Time Temp Pulse Resp B/P (MAP) Pulse Ox O2 Delivery O2 Flow Rate FiO2 04/09/20 17:26 36.4 73 18 127/69 (88) 97 Room Air Capillary Refill : Less Than 3 Seconds General Appearance: No Apparent Distress, WD/WN, Chronically ill HEENT: PERRL/EOMI, Normal ENT Inspection, Pharynx Normal Neck: Full Range of Motion, Normal Inspection, Non Tender, Supple, Carotid Bruit Respiratory: Chest Non Tender, Lungs Clear, Normal Breath Sounds, No Accessory Muscle Use, No Respiratory Distress Cardiovascular: Regular Rate, Rhythm, No Edema, No Gallop, No JVD, No Murmur, Normal Peripheral Pulses Gastrointestinal: Normal Bowel Sounds, No Organomegaly, No Pulsatile Mass, Non Tender, Soft Back: Normal Inspection, No CVA Tenderness, No Vertebral Tenderness Extremity: Normal Capillary Refill, Normal Inspection, Normal Range of Motion (except left side), Non Tender, No Calf Tenderness, No Pedal Edema Neurologic/Psychiatric: Alert, Oriented x3, No Motor/Sensory Deficits, Normal Mood/Affect, Depressed Affect, Facial Droop (left), Motor Weakness (left sided paresis 0/5 flaccid) Skin: Normal Color, Warm/Dry Lymphatic: No Adenopathy Results/Procedures Lab Patient resulted labs reviewed. FIM Transfers Therapy Code Descriptions/Definitions Functional [place] Measure: 0=Not Assessed/NA 4=Minimal Assistance 1=Total Assistance 5=Supervision or Setup 2=Maximal Assistance 6=Modified [place] 3=Moderate Assistance 7=Complete IndependenceSCALE: Activities may be completed with or without assistive devices. 6-Vsavpdurtt-zyrukta completes the activity by him/herself with no assistance from a helper. 5-Set-up or Clean-up Assistance-helper sets up or cleans up; patient completes activity. [place] assists only prior to or following the activity. 4-Supervision or Touching Assistance-helper provides verbal cues and/or touching/steadying and/or contact guard assistance as patient completes activity. Assistance may be provided throughout the activity or intermittently. 3-Partial/Moderate Assistance-helper does LESS THAN HALF the effort. [place] lifts, holds or supports trunk or limbs, but provides less than half the effort. 2-Substantial/Maximal Assistance-helper does MORE THAN HALF the effort. [place] lifts or holds trunk or limbs and provides more than half the effort. 3-Yjzzxmogz-cibblw does ALL the effort. Patient does none of the effort to complete the activity. Or, the assistance of 2 or more helpers is required for the patient to complete the activity. If activity was not attempted, code reason: 7-Patient Refused. 9-Not Applicable-not attempted and the patient did not perform the activity before the current illness, exacerbation or injury. 10-Not Attempted due to Environmental Limitations-(lack of equipment, weather restraints, etc.). 88-Not Attempted due to Medical Conditions or Safety Concerns. Roll Left to Right (QC): 2 Sit to Lying (QC): 1 Sit to Stand (QC): 1 Chair/Qrj-pb-Tlfug Xfer(QC): 1 Car Transfer (QC): 1 Gait Training Does the Patient Walk?: No and Walking Goal NOT indicated Walk 10 feet (QC): 88 Walk 50 ft with 2 Turns(QC): 88 Walk 150 ft (QC): 88 Walking 10ft/uneven surface-QC: 88 Wheelchair Training Does the Pt Use a Wheelchair?: Yes Distance: 150' Wheel 50 ft with 2 turns (QC): 3 Wheel 150 ft (QC): 3 Type of Wheelchair: Manual Stair Training 1 Step (curb) (QC): 88 4 Steps (QC): 88 12 Steps (QC): 88 Balance Picking up an Object (QC): 88 ADL-Treatment Eating (QC): 5 (Set up for eating. Uses regular utensils to eat.) Oral Hygiene (QC): 5 Bathing Location: Chest, Abdomen, Perineal Area Shower/Bathe Self (QC): 1 Upper Body Dressing (QC): 2 Lower Body Dressing (QC): 1 On/Off Footwear (QC): 2 Toileting Hygiene (QC): 1 Toilet Transfer (QC): 1 Assessment/Plan Assessment and Plan Assess & Plan/Chief Complaint Assessment: Catastrophic CVA with left sided flaccidity Left facial droop COVID-19 antibody + Bipolar disorder Autism spectrum Urinary retention Preston cath in place consulted Dr Drake Plan: IRF protocol Dr Drake consultation Monitor bowel function Fall risk CBD oil Mehnaz lift 04/01/20: Voltaren gel for back pain Lortab for pain Mehnaz lift completely no sit-2-stand ability Flaccid left side continues 04/02/20: Patient went to father's today Continue Voltaren gel for back pain Sit to stand no longer an option needs Mehnaz lift 04/03/20: Bowels moved 2 days ago Laxatives ordered Discontinue the Preston catheter and Dr. Matias will monitor closely for retention Completed Augmentin Baclofen and pain medication taken on a real regular basis prone for dependency and addiction potential 04/04/20: Urology management of urinary retention since catheter removed Continue pain management but addiction potential noted Air mattress to prevent skin breakdown Laxatives due to constipation now 04/05/20: Bowels still not moving, supp and Fleets and SSE will be given Decrease pain meds to Q6hrs due to overuse and narcotic bowel noted complications Addiction potential noted Preston cath replaced and Flomax and Urecholine maintained now 04/06/20: Weaned Lortab Baclofen prn is working well BM regimen to continue Preston cath 04/07/20: Baclofen 10mg at night Maintain BM regimen Likely preston cath will be required again 04/08/20: Preston reinserted Labs stable BM regimen 04/09/20: Improvement in spontaneous urination Maintain Flomax and Urecholine Monitor closely (1) Acute right MCA stroke Status: Acute (2) Facial droop due to cerebrovascular accident (CVA) (3) Bipolar disorder (4) Autism spectrum (5) Urinary retention (6) Preston catheter in place (7) Coronavirus infection, unspecified Status: Chronic (8) Left-sided neglect Status: Acute (9) Dysphasia due to recent cerebrovascular accident (CVA) Status: Acute AIDE GATICA DO Apr 09, 2020 06:49
[2020-04-09] MEDS: BETHANECHOL 25 MG (URECHOLINE) TAB PO SCH ×4 (07:44→21:23)
[2020-04-09] MEDS: ASPIRIN 325 MG (5 GR) TABLET PO SCH (08:02)
[2020-04-09] MEDS: meTOproloL SUCCINATE 50 MG (TOPROL XL) TAB PO SCH (08:02)
[2020-04-09 08:04] VITALS: BP 152/81
[2020-04-09] MEDS: DOCUSATE SODIUM 100 MG (COLACE) CAP PO SCH ×2 (08:04→21:23)
[2020-04-09] MEDS: polyethylene glycoL POWDER 17 GM (MIRALAX) PACK PO SCH ×2 (08:04→21:23)
[2020-04-09] MEDS: SENNA W/DOCUSATE (SENOKOT S) TABLET PO SCH ×2 (08:04→21:23)
--- NOTE | 2020-04-09 09:13 | Occupational Ther Daily Note ---
OT Current Status-Daily Note Subjective Pt alert, lying in bed. Pt agrees to shower. No c/o pain at this time. Pt increased tone in L LE. Pt wearing L resting hand splint, decreased tone noted. Pt does demonstrate flexor tone in L UE during full body movement. Mental Status/Objective Patient Orientation: Person, Place, Time, Situation ADL-Treatment OT/PT co-treat ([id number]), skills of 2 clinicians required due to pt's medical complexity, assist x2 transfers, increased L body tone and decrease mobility. PT working on functional sitting balance during shower, standing, ambulation and transfers. OT working on ADLs, functional sitting balance, positioning and stabilizing L UE. Pt agrees to shower. Increased tone throughout L side of body, decreased awareness of body position. Pt transferred x2 to rolling shower chair with cutout. Pt transported to large shower room. Pt progressing with sitting balance during shower, able to maintain upright posture whereas previously would lean left and scoot buttocks right. Pt required verbal direction to wash chest, L UE, abdomen and audrey area, assist with all other areas. Pull to stand with max A to transfer from shower chair to w/c. Pt dependent with donning/doffing lower body clothing. Max A for upper body clothing. Therapy Code Descriptions/Definitions Functional [place] Measure: 0=Not Assessed/NA 4=Minimal Assistance 1=Total Assistance 5=Supervision or Setup 2=Maximal Assistance 6=Modified [place] 3=Moderate Assistance 7=Complete IndependenceSCALE: Activities may be completed with or without assistive devices. 1-Tsqvofrrhb-jrqkxuw completes the activity by him/herself with no assistance from a helper. 5-Set-up or Clean-up Assistance-helper sets up or cleans up; patient completes activity. [place] assists only prior to or following the activity. 4-Supervision or Touching Assistance-helper provides verbal cues and/or touching/steadying and/or contact guard assistance as patient completes activity. Assistance may be provided throughout the activity or intermittently. 3-Partial/Moderate Assistance-helper does LESS THAN HALF the effort. [place] lifts, holds or supports trunk or limbs, but provides less than half the effort. 2-Substantial/Maximal Assistance-helper does MORE THAN HALF the effort. [place] lifts or holds trunk or limbs and provides more than half the effort. 1-Fdbukveap-wiybol does ALL the effort. Patient does none of the effort to complete the activity. Or, the assistance of 2 or more helpers is required for the patient to complete the activity. If activity was not attempted, code reason: 7-Patient Refused. 9-Not Applicable-not attempted and the patient did not perform the activity before the current illness, exacerbation or injury. 10-Not Attempted due to Environmental Limitations-(lack of equipment, weather restraints, etc.). 88-Not Attempted due to Medical Conditions or Safety Concerns. Shower/Bathe Self (QC): 1 Upper Body Dressing (QC): 2 Lower Body Dressing (QC): 1 On/Off Footwear: 2 Other Treatment Pt propelled w/c with verbal and physical cues to keep straight line and turning. PT working on standing and ambulating in parallel bars (3x). Pt able to front elevator operator parallel bar with tone and assist to stabilize elbow for wt bearing. After session, pt sitting in recliner with call light/phone in reach. All needs met in room. OT Short Term Goals Short Term Goals Time Frame: Apr 11, 2020 Eatin Oral hygiene: 3 Toileting hygiene: 3 Shower/bathe self: 2 Upper body dressin Lower body dressin Putting on/taking off footwear: 2 OT Chcf Goals Chcf Goals Time Frame: Apr 25, 2020 Eating (QC): 4 Oral Hygiene (QC): 4 Toileting Hygiene (QC): 3 Shower/Bathe Self (QC): 3 Upper Body Dressing (QC): 4 Lower Body Dressing (QC): 4 On/Off Footwear (QC): 4 Additional Goals: 1-Demonstrate ADL Tasks, 2-Verbalize Understanding, 3-Impro veStrength/[place] 1=Demonstrate adherence to instructed precautions during ADL tasks. 2=Patient will verbalize/demonstrate understanding of assistive devices/modifications for ADL. 3=Patient will improve strength/tolerance for activity to enable patient to perform ADL's. OT Education/Plan Problem List/Assessment Assessment: Decreased Activ Tolerance, Decreased UE Strength, Dependent Transfers, Impaired Bed Mobility, Impaired Cognition, Impaired Coordination, Impaired Funct Balance, Impaired I ADL's, Impaired Self-Care Skills, Restricted Funct UE ROM, Visual-Perceptual Deficit Discharge Recommendations Plan/Recommendations: Continue POC Treatment Plan/Plan of Care Patient would benefit from OT for education, treatment and training to promote independence in ADL's, mobility, safety and/or upper extremity function for ADL's. Plan of Care: ADL Retraining, Functional Mobility, UE Funct Exercise/Act, UE Neuromus Re-Ed/Coord, Visual/Perceptual Retrain Treatment Duration: Apr 25, 2020 Frequency: At least 5 of 7 days/Wk (IRF) Estimated Hrs Per Day: 1.5 hours per day Agreement: Yes Rehab Potential: Good Time/GCodes Start Time: 07:45 Stop Time: 09:15 Total Time Billed (hr/min): 90 Billed Treatment Time 1 visit-ADL 4 (60 min) NM 2 (30 min) Co-treat with PT 75 min ([id number]) Individual 15 min ([id number]) JOSIAH ESCALANTE Apr 09, 2020 09:13
--- NOTE | 2020-04-09 09:14 | Physical Therapy Daily Note ---
PT Daily Note-Current Subjective Patient in bed pre tx, agrees to PT, no complaints of pain at rest. Will be co- treating with OT due to poor patient mobility, strength, endurance, left hemiparesis, poor sitting and standing balance, pushers syndrome, the need to coordinate UE and LE during activity, reduce the risk of falls. Appearance Patient in recliner post tx with nurse call, phone, tray, all needs met. Mental Status Patient Orientation: Person, Place, Situation Transfers SCALE: Activities may be completed with or without assistive devices. 4-Vaindyhlbj-smxowlp completes the activity by him/herself with no assistance from a helper. 5-Set-up or Clean-up Assistance-helper sets up or cleans up; patient completes activity. [place] assists only prior to or following the activity. 4-Supervision or Touching Assistance-helper provides verbal cues and/or touching/steadying and/or contact guard assistance as patient completes activity. Assistance may be provided throughout the activity or intermittently. 3-Partial/Moderate Assistance-helper does LESS THAN HALF the effort. [place] lifts, holds or supports trunk or limbs, but provides less than half the effort. 2-Substantial/Maximal Assistance-helper does MORE THAN HALF the effort. [place] lifts or holds trunk or limbs and provides more than half the effort. 1-Sbarkcymk-bsvomu does ALL the effort. Patient does none of the effort to compl ete the activity. Or, the assistance of 2 or more helpers is required for the patient to complete the activity. If activity was not attempted, code reason: 7-Patient Refused. 9-Not Applicable-not attempted and the patient did not perform the activity before the current illness, exacerbation or injury. 10-Not Attempted due to Environmental Limitations-(lack of equipment, weather restraints, etc.). 88-Not Attempted due to Medical Conditions or Safety Concerns. Roll Left & Right (QC): 2 Lying to Sitting/Side of Bed(Q: 2 Sit to Stand (QC): 2 Chair/Yof-md-Dhpdb Xfer(QC): 2 Gait Training Distance: 6'x3 Gait Persons Needed: 2 Gait Assistive Device: Parallel Bars Ambulated in the parallel bars, needs blocking of left knee when stepping with right leg, needs assist advancing his left leg and with standing balance. Wheelchair Training Does the Pt Use a Wheelchair?: Yes Wheel 150 ft (QC): 3 Type of Wheelchair: Manual 150'x2 Exercises LLE stretching/ROM in all planes. Treatments Transfer supine to sit, undress, transfer to shower chair, taken to shower room for bathing, dressed, transfer to WC, propel WC to therapy gym, standing in parallel bars for ~ 2 min, ambulate in parallel bars, WC propel to room, transfer to recliner. PT performed bed mobility and transfers, ambulation, standing, WC mobility, assist with balance during bathing and dressing, OT performed bathing, dressing, assist with transfers, UE positioning and safety during activity. Assessment Current Status: Poor Progress Patient still has trouble leaning forward to stand or when sitting, patient has a tendency to extend his back forcefully, doing the opposite of what is needed. PT Short Term Goals Short Term Goals Time Frame: Apr 04, 2020 Roll Left & Right: 3 Sit to lyin Lying to sitting on side of be: 3 Sit to stand: 3 Chair/tyc-rt-ufxbk transfer: 2 PT Glass Inspector Goals Long-Term Goals PT Long-Term Goals Time Frame: Apr 18, 2020 Roll Left & Right (QC): 3 (Pablo) Sit to Lying (QC): 3 (Pablo) Lying-Sitting on Side/Bed(QC): 3 (Pablo) Sit to Stand (QC): 3 ([place]ablo) Chair/Npa-xh-Utbrk Xfer(QC): 3 ([place]ablo) Toilet Transfer (QC): 3 ([place]ablo) Car Transfer (QC): 3 (mod A) Does the Patient Walk: No and Walking Goal NOT indicated Walk 10 feet (QC): 88 Walk 50ft with 2 Turns (QC): 88 Walk 150 ft (QC): 88 Walking 10ft on Uneven Surface: 88 1 Step (curb) (QC): 88 4 Steps (QC): 88 12 Steps (QC): 88 Picking up an Object (QC): 88 Does the Pt use WC or Scooter?: Yes Wheel 50 feet with 2 turns (QC: 3 ([place]) Type: Manual Wheel 150 feet: 3 ([place]ablo) Type: Manual PT Plan Problem List Problem List: Activity Tolerance, Functional Strength, Safety, Balance, Gait, Transfer, Bed Mobility, ROM Treatment/Plan Treatment Plan: Continue Plan of Care Treatment Plan: Bed Mobility, Education, Functional Activity [place], Functional Strength, Group Therapy, Gait, Safety, Therapeutic Exercise, Transfers Treatment Duration: Apr 18, 2020 Frequency: At least 5 of 7 days/Wk (IRF) Estimated Hrs Per Day: 1.5 hours per day Patient and/or Family Agrees t: Yes Safety Risks/Education Patient Education: Gait Training, Transfer Techniques, Correct Positioning, W/C Management, Safety Issues Teaching Recipient: Patient Teaching Methods: Demonstration, Discussion Response to Teaching: Reinforcement Needed Time/GCodes Time In: 0800 Time Out: 0915 Total Billed Treatment Time: 75 Total Billed Treatment 1 visit FA 75' Co-treated with OT for the whole 75'. MARK RYAN PT Apr 09, 2020 09:14
[2020-04-09] MEDS: PATCH REMOVAL TP SCH (11:17)
--- NOTE | 2020-04-09 11:25 | Progress Note - Urology ---
Progress Note-Urology Progress Notes/Assess & Plan Progress/Assessment & Plan STARTED VOIDING ON OWN. OBSERVE Final Diagnosis URINE RETENTION TIFFANIE WOMACK MD Apr 09, 2020 11:25
[2020-04-09] MEDS ORDERED: LIDOCAINE UROJET 2% GEL 10 ML PKG ONE ×2 (12:04→18:49)
--- NOTE | 2020-04-09 12:28 | NUR ---
ATTEMPTED TO VOID IN THE URINAL BUT UNSUCCESSFUL. BLADDER SCAN DONE AND SHOWING 371MLS. STRAIGHT CATH DONE PER ORDERS AND PATIENT'S REQUEST. 450MLS OF URINE IMMEDIATE RETURN. URINE ODOR IS STRONG. PATIENT ENCOURAGED TO INCREASE ORAL INTAKE.
--- NOTE | 2020-04-09 12:31 | NUR ---
NEW ALLEVYN TO LEFT HEEL. BLISTER REMAINS INTACT AND HEALING.
--- NOTE | 2020-04-09 14:22 | Speech Therapy Daily Note ---
Speech Daily Progress Note Subjective Date Seen by Provider: Apr 09, 2020 Time Seen by Provider: 00:30 Patient was resting in his bed when I entered his room. was at bedside. Objective Patient completed history trivia questions at 80% with 20% cues. Assessment Assessment Current Status: Good Progress Treatment Plan Continue Plan of Care Speech Short Term Goals Short Term Goals Short Term Goals 1) Patient will complete memory tasks related to his daily needs at 90% or greater with minimal cues. 2) Patient will complete safety awareness tasks related to his daily needs at 90% or greater with minimal cues. 3) Patient will complete problem solving tasks related to his daily needs at 90% or greater with minimal cues. 4) Patient will tolerate least restrictive diet level without s/s of aspiration at 90% or greater. 5) Patient/caregiver will utilize compensatory strategies as trained at 90% or greater with minimal cues. Speech Usp Goals Industrial Truck Operator Goals Patient will improve cognitive-communication necessary for safety and daily living tasks with minimal assist. Patient will maintain adequate nutrition/hydration via safe effective swallow function. Speech-Plan Patient/Family Goals Patient/Family Goals: Patient plans to return home where he lives with his upon discharge. Treatment Plan Speech Therapy Treatment Plan: Continue Plan of Care Treatment Duration: Apr 12, 2020 Frequency: 5 times per week Estimated Hrs Per Day: .5 hour per day Rehab Potential: Good Barriers to Learning: Patient's recent CVA Pt/Family Agrees to Plan: Yes Safety Risks/Education Teaching Recipient: Patient Teaching Methods: Demonstration, Discussion Response to Teaching: Verbalize Understanding, Return Demonstration Education Topics Provided: Continued safety and communication Time Speech Therapy Time In: 11:00 Speech Therapy Time Out: 11:30 Total Billed Time: 30 Billed Treatment Time 1[address] Apr 09, 2020 14:22
[2020-04-09 17:26] VITALS: BP 127/69
[2020-04-09] MEDS: TAMSULOSIN 0.4 MG (FLOMAX) CAP PO SCH (17:28)
[2020-04-09] MEDS: ENOXAPARIN 40 MG/0.4 ML (LOVENOX) SYR SC SCH (17:31)
--- NOTE | 2020-04-09 18:47 | NUR ---
UNABLE TO URINATE. BLADDER SCAN DONE AND SHOWING 367MLS. DR. WOMACK NOTIFIED. ORDERS TO INCREASE FLOMAX TO BID. CONTINUE TO STRAIGHT CATH NEEDED THROUGH THE NIGHT.
--- NOTE | 2020-04-09 19:05 | NUR ---
STRAIGHT CATH DONE PER ORDERS. 375MLS CLOUDY, FOUL SMELLING URINE NOTED. DR. WOMACK NOTIFIED. ORDERS TO SEND DOWN FOR UA- CULTURE IF INDICATED.
[2020-04-09 19:09] LABS: BILIRUBIN,URINE NEGATIVE (NEGATIVE); CLARITY,URINE CLOUDY; COLOR,URINE YELLOW; GLUCOSE, URINE (UA) NEGATIVE (NEGATIVE); KETONES,URINE NEGATIVE (NEGATIVE); LEUKOCYTE ESTERASE ,URINE TRACE (NEGATIVE); NITRITE,URINE POSITIVE (NEGATIVE); PROTEIN,URINE NEGATIVE (NEGATIVE)
[2020-04-09 19:36] LABS: BACTERIA,URINE LARGE /HPF; WBC,URINE 25-50 /HPF
[2020-04-09] MEDS: SERTRALINE 50 MG (ZOLOFT) TABLET PO SCH (21:22)
[2020-04-09] MEDS: BACLOFEN 10 MG (LIORESAL) TAB PO SCH (21:23)
[2020-04-10] MEDS: BETHANECHOL 25 MG (URECHOLINE) TAB PO SCH ×4 (05:56→21:21)
--- NOTE | 2020-04-10 05:57 | PM&R Progress Note ---
Subjective HPI/CC On Admission Date Seen by Provider: Apr 10, 2020 Time Seen by Provider: 10:30 Subjective/Events-last exam Woke up this morning at 3:30 and voided 330 CCs Bladder scan this morning showed 431 so needed and in/out cath Bowels moved yesterday Decreasing pain medication use Checked meds and labs Conferred with RN Reviewed therapy notes Review of Systems General: Fatigue, Malaise Neurological: Weakness Objective Exam Vital Signs Vital Signs Date Time Temp Pulse Resp B/P (MAP) Pulse Ox O2 Delivery O2 Flow Rate FiO2 04/10/20 18:02 36.0 64 18 140/69 (92) 97 Room Air Capillary Refill : Less Than 3 Seconds General Appearance: No Apparent Distress, WD/WN, Chronically ill HEENT: PERRL/EOMI, Normal ENT Inspection, Pharynx Normal Neck: Full Range of Motion, Normal Inspection, Non Tender, Supple, Carotid Bruit Respiratory: Chest Non Tender, Lungs Clear, Normal Breath Sounds, No Accessory Muscle Use, No Respiratory Distress Cardiovascular: Regular Rate, Rhythm, No Edema, No Gallop, No JVD, No Murmur, Normal Peripheral Pulses Gastrointestinal: Normal Bowel Sounds, No Organomegaly, No Pulsatile Mass, Non Tender, Soft Back: Normal Inspection, No CVA Tenderness, No Vertebral Tenderness Extremity: Normal Capillary Refill, Normal Inspection, Normal Range of Motion (except left side), Non Tender, No Calf Tenderness, No Pedal Edema Neurologic/Psychiatric: Alert, Oriented x3, No Motor/Sensory Deficits, Normal Mood/Affect, Depressed Affect, Facial Droop (left), Motor Weakness (left sided paresis 0/5 flaccid) Skin: Normal Color, Warm/Dry Lymphatic: No Adenopathy Results/Procedures Lab Patient resulted labs reviewed. FIM Transfers Therapy Code Descriptions/Definitions Functional [place] Measure: 0=Not Assessed/NA 4=Minimal Assistance 1=Total Assistance 5=Supervision or Setup 2=Maximal Assistance 6=Modified [place] 3=Moderate Assistance 7=Complete IndependenceSCALE: Activities may be completed with or without assistive devices. 6-Bocawfgllf-hzhemsy completes the activity by him/herself with no assistance from a helper. 5-Set-up or Clean-up Assistance-helper sets up or cleans up; patient completes activity. [place] assists only prior to or following the activity. 4-Supervision or Touching Assistance-helper provides verbal cues and/or touching/steadying and/or contact guard assistance as patient completes activity. Assistance may be provided throughout the activity or intermittently. 3-Partial/Moderate Assistance-helper does LESS THAN HALF the effort. [place] lifts, holds or supports trunk or limbs, but provides less than half the effort. 2-Substantial/Maximal Assistance-helper does MORE THAN HALF the effort. [place] lifts or holds trunk or limbs and provides more than half the effort. 4-Ydnvqzjqk-wlcvbv does ALL the effort. Patient does none of the effort to complete the activity. Or, the assistance of 2 or more helpers is required for the patient to complete the activity. If activity was not attempted, code reason: 7-Patient Refused. 9-Not Applicable-not attempted and the patient did not perform the activity before the current illness, exacerbation or injury. 10-Not Attempted due to Environmental Limitations-(lack of equipment, weather restraints, etc.). 88-Not Attempted due to Medical Conditions or Safety Concerns. Roll Left to Right (QC): 2 Sit to Lying (QC): 1 Sit to Stand (QC): 2 Chair/Oxw-gc-Ozmht Xfer(QC): 2 Car Transfer (QC): 1 Gait Training Does the Patient Walk?: No and Walking Goal NOT indicated Distance: 6'x3 Walk 10 feet (QC): 88 Walk 50 ft with 2 Turns(QC): 88 Walk 150 ft (QC): 88 Walking 10ft/uneven surface-QC: 88 Gait Persons Needed: 2 Gait Assistive Device: Parallel Bars Wheelchair Training Does the Pt Use a Wheelchair?: Yes Distance: 150' Wheel 50 ft with 2 turns (QC): 3 Wheel 150 ft (QC): 3 Type of Wheelchair: Manual Stair Training 1 Step (curb) (QC): 88 4 Steps (QC): 88 12 Steps (QC): 88 Balance Picking up an Object (QC): 88 ADL-Treatment Eating (QC): 5 (Set up for eating. Uses regular utensils to eat.) Oral Hygiene (QC): 5 Bathing Location: Chest, Abdomen, Perineal Area Shower/Bathe Self (QC): 1 Upper Body Dressing (QC): 2 Lower Body Dressing (QC): 1 On/Off Footwear (QC): 2 Toileting Hygiene (QC): 1 Toilet Transfer (QC): 1 Assessment/Plan Assessment and Plan Assess & Plan/Chief Complaint Assessment: Catastrophic CVA with left sided flaccidity Left facial droop COVID-19 antibody + Bipolar disorder Autism spectrum Urinary retention [place] cath in place consulted Dr Drake Plan: IRF protocol Dr Drake consultation Monitor bowel function Fall risk CBD oil Mehnaz lift Voiding much better on his own Maintain bladder meds Bowel regimen Decreasing pain medication 04/01/20: Voltaren gel for back pain Lortab for pain Mehnaz lift completely no sit-2-stand ability Flaccid left side continues 04/02/20: Patient went to father's today Continue Voltaren gel for back pain Sit to stand no longer an option needs Mehnaz lift 04/03/20: Bowels moved 2 days ago Laxatives ordered Discontinue the Preston catheter and Dr. aMtias will monitor closely for retention Completed Augmentin Baclofen and pain medication taken on a real regular basis prone for dependency and addiction potential 04/04/20: Urology management of urinary retention since catheter removed Continue pain management but addiction potential noted Air mattress to prevent skin breakdown Laxatives due to constipation now 04/05/20: Bowels still not moving, supp and Fleets and SSE will be given Decrease pain meds to Q6hrs due to overuse and narcotic bowel noted complications Addiction potential noted Preston cath replaced and Flomax and Urecholine maintained now 04/06/20: Weaned Lortab Baclofen prn is working well BM regimen to continue Preston cath 04/07/20: Baclofen 10mg at night Maintain BM regimen Likely preston cath will be required again 04/08/20: Preston reinserted Labs stable BM regimen 04/09/20: Improvement in spontaneous urination Maintain Flomax and Urecholine Monitor closely 04/10/20: Disposition pending Continue aggressive therapy Cystoscopy Bladder meds (1) Acute right MCA stroke Status: Acute (2) Facial droop due to cerebrovascular accident (CVA) (3) Bipolar disorder (4) Autism spectrum (5) Urinary retention (6) Preston catheter in place (7) Coronavirus infection, unspecified Status: Chronic (8) Left-sided neglect Status: Acute (9) Dysphasia due to recent cerebrovascular accident (CVA) Status: Acute AIDE GATICA DO Apr 10, 2020 05:57
[2020-04-10 06:15] VITALS: BP 135/70
--- NOTE | 2020-04-10 08:00 | NUR ---
DENIES DIFFICULTY IN SWALLOWING. CONTINUE TO CRUSH MEDS.
[2020-04-10] MEDS: ASPIRIN 325 MG (5 GR) TABLET PO SCH (08:57)
[2020-04-10] MEDS: HYDROcodone/APAP 5 MG/325 MG (LORTAB) TAB PO PRN ×2 (08:57→16:29)
[2020-04-10] MEDS: meTOproloL SUCCINATE 50 MG (TOPROL XL) TAB PO SCH (08:57)
[2020-04-10] MEDS: SENNA W/DOCUSATE (SENOKOT S) TABLET PO SCH ×2 (08:57→21:25)
[2020-04-10] MEDS: TAMSULOSIN 0.4 MG (FLOMAX) CAP PO SCH ×2 (08:58→21:21)
[2020-04-10] MEDS: DOCUSATE SODIUM 100 MG (COLACE) CAP PO SCH ×2 (09:00→21:24)
[2020-04-10] MEDS: polyethylene glycoL POWDER 17 GM (MIRALAX) PACK PO SCH ×2 (09:00→21:24)
--- NOTE | 2020-04-10 09:18 | Physical Therapy Daily Note ---
PT Daily Note-Current Subjective Pt in bed upon arrival with OT in room. Pt agrees to co-treat. Use of two clinicians d/t poor activity tolerance, balance, transfers, weakness, and impaired ROM. Throughout tx, pt stated pain in L back with certain activity. Pain Location: Lower Location Body Site: Back Pain Description: Stabbing Comment: Pain not rated. Mental Status Patient Orientation: Person, Place, Time, Situation Transfers SCALE: Activities may be completed with or without assistive devices. 1-Rbanidtsfy-ruayzmb completes the activity by him/herself with no assistance from a helper. 5-Set-up or Clean-up Assistance-helper sets up or cleans up; patient completes activity. [place] assists only prior to or following the activity. 4-Supervision or Touching Assistance-helper provides verbal cues and/or touching/steadying and/or contact guard assistance as patient completes activity. Assistance may be provided throughout the activity or intermittently. 3-Partial/Moderate Assistance-helper does LESS THAN HALF the effort. [place] lif ts, holds or supports trunk or limbs, but provides less than half the effort. 2-Substantial/Maximal Assistance-helper does MORE THAN HALF the effort. [place] lifts or holds trunk or limbs and provides more than half the effort. 6-Zvlzikbhg-tkfgnp does ALL the effort. Patient does none of the effort to complete the activity. Or, the assistance of 2 or more helpers is required for the patient to complete the activity. If activity was not attempted, code reason: 7-Patient Refused. 9-Not Applicable-not attempted and the patient did not perform the activity before the current illness, exacerbation or injury. 10-Not Attempted due to Environmental Limitations-(lack of equipment, weather restraints, etc.). 88-Not Attempted due to Medical Conditions or Safety Concerns. Roll Left & Right (QC): 2 Sit to Lying (QC): 2 Lying to Sitting/Side of Bed(Q: 2 Sit to Stand (QC): 2 Chair/Mvx-be-Atqpx Xfer(QC): 2 Rolling pt is maxA to R side and Pablo to L side. Gait Training Does the Patient Walk?: Yes Distance: 6' x2 Gait Assistive Device: Parallel Bars Pt amb in // bars with 2 persons assist. Pt able to step forward with R foot, as PT brought L foot forward as pt weight shifted to R side. Pt followed by WC. Wheelchair Training Does the Pt Use a Wheelchair?: Yes Wheel 50 ft with 2 turns (QC): 4 Type of Wheelchair: Manual Pt able to propel WC using R UE and LE with one person steering WC. Exercises Seated Therapy Exercises: Ankle pumps, Long arc quads, Hip flexion Seated Reps: 6 Pt PROM on all L LE exercises. Treatments Pt in bed and performs bed mobility at beginning of tx. RN entered room and gave pt straight catheter. OT assisted in dressing pt's LE as PT assisted pt rolling L to R. Pt supine to sit with PT directing LE and OT directing torso. Pt transferred to maxA x2. Pt propelled in WC to gym and taken to // bars where pt performed static standing x3 for approx 30 seconds. Pt amb in // bars 6' x2. Pt practiced modified SPT x4 with maxA x2, PT blocking R knee and directing pt and OT assist in directing pt. Pt performed seated exercises in WC prior to being taken back to room. Pt brushed teeth, washed face, and shaved. Pt transferred back to bed and left with all needs met, call light in hand. PT focused on transfers, sit to stands, LE strengthening/positioning. OT focused on ADLs, dressing, UE strengthening/positioning. Assessment Current Status: Fair Progress Pt sit to stand modA, L knee needs A to stay extended with stance. Pt easily distracted during tx. PT Short Term Goals Short Term Goals Time Frame: Apr 04, 2020 Roll Left & Right: 3 Sit to lyin Lying to sitting on side of be: 3 Sit to stand: 3 Chair/ksl-az-myjty transfer: 2 PT Lead Business Analyst Goals Lead Business Analyst Goals PT Lead Business Analyst Goals Time Frame: Apr 18, 2020 Roll Left & Right (QC): 3 (Pablo) Sit to Lying (QC): 3 (Pablo) Lying-Sitting on Side/Bed(QC): 3 (Pablo) Sit to Stand (QC): 3 (Pablo) Chair/Pcb-sf-Bycir Xfer(QC): 3 (Pablo) Toilet Transfer (QC): 3 (Pablo) Car Transfer (QC): 3 (mod A) Does the Patient Walk: No and Walking Goal NOT indicated Walk 10 feet (QC): 88 Walk 50ft with 2 Turns (QC): 88 Walk 150 ft (QC): 88 Walking 10ft on Uneven Surface: 88 1 Step (curb) (QC): 88 4 Steps (QC): 88 12 Steps (QC): 88 Picking up an Object (QC): 88 Does the Pt use WC or Scooter?: Yes Wheel 50 feet with 2 turns (QC: 3 (Pablo) Type: Manual Wheel 150 feet: 3 (Pablo) Type: Manual PT Plan Treatment/Plan Treatment Plan: Continue Plan of Care Treatment Plan: Bed Mobility, Education, Functional Activity [place], Functional Strength, Group Therapy, Gait, Safety, Therapeutic Exercise, Transfers Treatment Duration: Apr 18, 2020 Frequency: At least 5 of 7 days/Wk (IRF) Estimated Hrs Per Day: 1.5 hours per day Patient and/or Family Agrees t: Yes Safety Risks/Education Patient Education: Gait Training, Transfer Techniques, Correct Positioning, Safety Issues Teaching Recipient: Patient Teaching Methods: Demonstration, Discussion Response to Teaching: Verbalize Understanding, Return Demonstration Time/GCodes Time In: 800 Time Out: 915 Total Billed Treatment Time: 75 Total Billed Treatment 1, FA x4 (60m), EX (15m) MONSE SANCHEZ ZINC ETCHER Apr 10, 2020 09:18
--- NOTE | 2020-04-10 10:37 | Occupational Ther Daily Note ---
OT Current Status-Daily Note Subjective Pt alert, lying in bed. Pt agrees to therapy. No c/o pain at this time, c/o pain with stretching L LE. Mental Status/Objective Patient Orientation: Person, Place, Time, Situation Attachments: IV ADL-Treatment Pt requests to use urinal, unable to urinate. Reported to nrsg, nrsg bladder scanned then straight cathed. Pt dependent with lower body dressing. Max A for supine to EOB. Max A for SPT toward L side. Set up for oral care sitting at sink. OT/PT co-treat ([id number]), skills of 2 clinicians required due to pt's medical complexity, assist x2 transfers, increased L body tone and decrease mobility. PT working on functional sitting balance during shower, standing, ambulation and transfers. OT working on ADLs, functional sitting balance, positioning and stabilizing L UE. Increased tone throughout L side of body, decreased awareness of body position. Therapy Code Descriptions/Definitions Functional [place] Measure: 0=Not Assessed/NA 4=Minimal Assistance 1=Total Assistance 5=Supervision or Setup 2=Maximal Assistance 6=Modified [place] 3=Moderate Assistance 7=Complete IndependenceSCALE: Activities may be completed with or without assistive devices. 4-Foiyrskmgl-ucqkepi completes the activity by him/herself with no assistance from a helper. 5-Set-up or Clean-up Assistance-helper sets up or cleans up; patient completes activity. [place] assists only prior to or following the activity. 4-Supervision or Touching Assistance-helper provides verbal cues and/or touching/steadying and/or contact guard assistance as patient completes activity. Assistance may be provided throughout the activity or intermittently. 3-Partial/Moderate Assistance-helper does LESS THAN HALF the effort. [place] lifts, holds or supports trunk or limbs, but provides less than half the effort. 2-Substantial/Maximal Assistance-helper does MORE THAN HALF the effort. [place] lifts or holds trunk or limbs and provides more than half the effort. 8-Advuawkzc-frpaec does ALL the effort. Patient does none of the effort to complete the activity. Or, the assistance of 2 or more helpers is required for the patient to complete the activity. If activity was not attempted, code reason: 7-Patient Refused. 9-Not Applicable-not attempted and the patient did not perform the activity before the current illness, exacerbation or injury. 10-Not Attempted due to Environmental Limitations-(lack of equipment, weather restraints, etc.). 88-Not Attempted due to Medical Conditions or Safety Concerns. Oral Hygiene (QC): 5 Lower Body Dressing (QC): 1 On/Off Footwear: 2 Other Treatment Pt stood at parallel bars with assist x2 then assist x3 walked length of parallel bars. After session, pt lying in bed with call light/phone in reach. All needs met in room. OT Short Term Goals Short Term Goals Time Frame: Apr 11, 2020 Eatin Oral hygiene: 3 Toileting hygiene: 3 Shower/bathe self: 2 Upper body dressin Lower body dressin Putting on/taking off footwear: 2 OT Yard [place]ler Goals Intermediate Goals Time Frame: Apr 25, 2020 Eating (QC): 4 Oral Hygiene (QC): 4 Toileting Hygiene (QC): 3 Shower/Bathe Self (QC): 3 Upper Body Dressing (QC): 4 Lower Body Dressing (QC): 4 On/Off Footwear (QC): 4 Additional Goals: 1-Demonstrate ADL Tasks, 2-Verbalize Understanding, 3- ImproveStrength/[place] 1=Demonstrate adherence to instructed precautions during ADL tasks. 2=Patient will verbalize/demonstrate understanding of assistive devices/modifications for ADL. 3=Patient will improve strength/tolerance for activity to enable patient to perform ADL's. OT Education/Plan Problem List/Assessment Assessment: Decreased Activ Tolerance, Decreased Safety Aware, Decreased UE Strength, Dependent Transfers, Impaired Bed Mobility, Impaired Cognition, Impaired Coordination, Impaired Funct Balance, Impaired I ADL's, Impaired Self- Care Skills, Restricted Funct UE ROM, Visual-Perceptual Deficit Discharge Recommendations Plan/Recommendations: Continue POC Treatment Plan/Plan of Care Patient would benefit from OT for education, treatment and training to promote independence in ADL's, mobility, safety and/or upper extremity function for ADL's. Plan of Care: ADL Retraining, Functional Mobility, UE Funct Exercise/Act, UE Neuromus Re-Ed/Coord, Visual/Perceptual Retrain Treatment Duration: Apr 25, 2020 Frequency: At least 5 of 7 days/Wk (IRF) Estimated Hrs Per Day: 1.5 hours per day Agreement: Yes Rehab Potential: Good Time/GCodes Start Time: 07:45 Stop Time: 09:15 Total Time Billed (hr/min): 90 Billed Treatment Time 1 visit-ADL 2 (30 min) NM 4 (60 min) co-treat 75 min ([id number]) individual 15 ([id number]) JOSIAH ESCALANTE Apr 10, 2020 10:37
[2020-04-10] MEDS: BACLOFEN 10 MG (LIORESAL) TAB PO PRN ×2 (11:16→16:18)
--- NOTE | 2020-04-10 11:52 | Speech Therapy Daily Note ---
Speech Daily Progress Note Subjective Date Seen by Provider: Apr 10, 2020 Time Seen by Provider: 00:30 Patient resting in bed following his other therapies. Patient's is at his side. Objective Patient completed general information trivia at 85% with 10% repetitions and/or cuing. Assessment Assessment Current Status: Good Progress Treatment Plan Continue Plan of Care Speech Short Term Goals Short Term Goals Short Term Goals 1) Patient will complete memory tasks related to his daily needs at 90% or greater with minimal cues. 2) Patient will complete safety awareness tasks related to his daily needs at 90% or greater with minimal cues. 3) Patient will complete problem solving tasks related to his daily needs at 90% or greater with minimal cues. 4) Patient will tolerate least restrictive diet level without s/s of aspiration at 90% or greater. 5) Patient/caregiver will utilize compensatory strategies as trained at 90% or greater with minimal cues. Speech Milk Pasteurizer Goals Fpc Goals Patient will improve cognitive-communication necessary for safety and daily living tasks with minimal assist. Patient will maintain adequate nutrition/hydration via safe effective swallow function. Speech-Plan Patient/Family Goals Patient/Family Goals: Patient plans on returning to his home where he lives with his . Treatment Plan Speech Therapy Treatment Plan: Continue Plan of Care Treatment Duration: Apr 12, 2020 Frequency: 5 times per week Estimated Hrs Per Day: .5 hour per day Rehab Potential: Good Barriers to Learning: Patient's recent CVA Safety Risks/Education Teaching Recipient: Patient, Significant Other Teaching Methods: Demonstration, Discussion Response to Teaching: Verbalize Understanding, Return Demonstration Education Topics Provided: Continued safety and communication Time Speech Therapy Time In: 11:00 Speech Therapy Time Out: 11:30 Total Billed Time: 30 Billed Treatment Time 1[address] Apr 10, 2020 11:52
--- NOTE | 2020-04-10 12:30 | NUR ---
PT STRAIGHT CATHED PER ORDER, 550ML CLOUDY/YELLOW FOWL SMELLING URINE REMOVED FROM BLADDER. LIDOCAINE USE, PT TOLERATED WELL. PT HELPED TO LEFT SIDE LYING POSITION. WILL CONTINUE TO MONITOR.
[2020-04-10] MEDS ORDERED: LIDOCAINE UROJET 2% GEL 10 ML PKG ONE ×2 (12:40→17:39)
--- NOTE | 2020-04-10 13:00 | NUR ---
DR. WOMACK HERE TO SEE PATIENT. PLAN FOR CYSTO TOMORROW.
--- NOTE | 2020-04-10 14:14 | Progress Note - Urology ---
Progress Note-Urology Progress Notes/Assess & Plan Progress/Assessment & Plan STILL NOT VOIDING WELL. PLAN CYSTOSCOPY TOMORROW AT BEDSIDE. FULLY EXPLAINED TO PATIENT AND Final Diagnosis URINE RETENTION TIFFANIE WOMACK MD Apr 10, 2020 14:14
--- NOTE | 2020-04-10 16:00 | NUR ---
HAS SPENT THE DAY HERE. VERY INVOLVED IN CARE.
[2020-04-10] MEDS: ENOXAPARIN 40 MG/0.4 ML (LOVENOX) SYR SC SCH (16:19)
--- NOTE | 2020-04-10 18:00 | NUR ---
HAVE STRAIGHT CATH'D X 2 TODAY. SEE BLADDER SCAN INTERVENTION FOR AMOUNTS. PER ORDER FROM DR. WOMACK, #16 ECHEVARRIA CATHETER INSERTED WITHOUT DIFFICULTY DUE TO PATIENT BEING UNABLE TO VOID. PATIENT VOIDED 50 CC X2 TODAY WITH MUCH EFFORT. MEDICATED WITH LORTAB AND BACLOFEN X 2 TODAY, BUT STATES BACK PAIN IS GETTING BETTER.
[2020-04-10 18:02] VITALS: BP 140/69
[2020-04-10] MEDS: SERTRALINE 50 MG (ZOLOFT) TABLET PO SCH (21:21)
[2020-04-10] MEDS: BACLOFEN 10 MG (LIORESAL) TAB PO SCH (21:21)
[2020-04-11 05:11] VITALS: BP 143/93
[2020-04-11] MEDS: BETHANECHOL 25 MG (URECHOLINE) TAB PO SCH ×4 (06:10→20:48)
[2020-04-11] MEDS: SENNA W/DOCUSATE (SENOKOT S) TABLET PO SCH ×2 (08:20→20:57)
[2020-04-11] MEDS: DOCUSATE SODIUM 100 MG (COLACE) CAP PO SCH ×2 (08:20→20:58)
[2020-04-11] MEDS: polyethylene glycoL POWDER 17 GM (MIRALAX) PACK PO SCH ×2 (08:20→20:58)
--- NOTE | 2020-04-11 09:03 | Occupational Ther Daily Note ---
OT Current Status-Daily Note Subjective Pt alert, lying in bed. Pt agrees to therapy. No c/o pain at this time. Requested ointment for back, applied. Mental Status/Objective Patient Orientation: Person, Place, Time, Situation Attachments: Pickett Catheter ADL-Treatment Pt declined shower, encouraged multiple times and pt continued to decline. Completed sponge bath in bed. Pt able to cleanse upper body (except R UE) and audrey area after setup. Assist to cleanse all other areas. Rolling and staying on L/R side requires assist x2. Dependent for lower body dressing and toileting (2x's this AM during session). OT/PT co-treat ([id number]), skills of 2 clinicians required for skilled instructions and skilled care during transfers, bed mobility, standing, ADLs and ambulation (assist x3). PT working on functional transfers, bed mobility, standing and ambulation in parallel bars. OT working on ADLs, bed mobility, L UE placement during mobility. See PT notes for ambulation in parallel bars. Pt requires verbal and physical assist to process how to position body and complete mobility (transfers, supine<-->sit, standing, ambulation). Pt is impulsive during mobility tasks. Tone noted in L UE though no intentional movement. After session, pt sitting in recliner with sebastien sling. Call light/phone in reach. All needs met in room. present throughout therapy. Therapy Code Descriptions/Definitions Functional Morgan Measure: 0=Not Assessed/NA 4=Minimal Assistance 1=Total Assistance 5=Supervision or Setup 2=Maximal Assistance 6=Modified Morgan 3=Moderate Assistance 7=Complete IndependenceSCALE: Activities may be completed with or without assistive devices. 9-Samutvawnn-utjpaex completes the activity by him/herself with no assistance from a helper. 5-Set-up or Clean-up Assistance-helper sets up or cleans up; patient completes activity. Kenton assists only prior to or following the activity. 4-Supervision or Touching Assistance-helper provides verbal cues and/or touching/steadying and/or contact guard assistance as patient completes activity. Assistance may be provided throughout the activity or intermittently. 3-Partial/Moderate Assistance-helper does LESS THAN HALF the effort. Kenton lifts, holds or supports trunk or limbs, but provides less than half the effort. 2-Substantial/Maximal Assistance-helper does MORE THAN HALF the effort. Kenton lifts or holds trunk or limbs and provides more than half the effort. 6-Ukeudhmbh-qwhbwi does ALL the effort. Patient does none of the effort to complete the activity. Or, the assistance of 2 or more helpers is required for the patient to complete the activity. If activity was not attempted, code reason: 7-Patient Refused. 9-Not Applicable-not attempted and the patient did not perform the activity before the current illness, exacerbation or injury. 10-Not Attempted due to Environmental Limitations-(lack of equipment, weather restraints, etc.). 88-Not Attempted due to Medical Conditions or Safety Concerns. Bathing Location: L Arm, Chest, Abdomen, Perineal Area Shower/Bathe Self (QC): 1 Upper Body Dressing (QC): 2 Lower Body Dressing (QC): 1 On/Off Footwear: 2 Toileting Hygiene (QC): 1 OT Short Term Goals Short Term Goals Time Frame: Apr 11, 2020 Eatin Oral hygiene: 3 Toileting hygiene: 3 Shower/bathe self: 2 Upper body dressin Lower body dressin Putting on/taking off footwear: 2 OT Correction Goals Ex Assistant/Program Director Goals Time Frame: Apr 25, 2020 Eating (QC): 4 Oral Hygiene (QC): 4 Toileting Hygiene (QC): 3 Shower/Bathe Self (QC): 3 Upper Body Dressing (QC): 4 Lower Body Dressing (QC): 4 On/Off Footwear (QC): 4 Additional Goals: 1-Demonstrate ADL Tasks, 2-Verbalize Understanding, 3- ImproveStrength/Georg[place] 1=Demonstrate adherence to instructed precautions during ADL tasks. 2=Patient will verbalize/demonstrate understanding of assistive devices/modifications for ADL. 3=Patient will improve strength/tolerance for activity to enable patient to perform ADL's. OT Education/Plan Problem List/Assessment Assessment: Decreased Activ Tolerance, Decreased Safety Aware, Decreased UE Strength, Dependent Transfers, Impaired Bed Mobility, Impaired Cognition, Impaired Coordination, Impaired Funct Balance, Impaired I ADL's, Impaired Self- Care Skills, Restricted Funct UE ROM, Visual-Perceptual Deficit Discharge Recommendations Plan/Recommendations: Continue POC Treatment Plan/Plan of Care Patient would benefit from OT for education, treatment and training to promote independence in ADL's, mobility, safety and/or upper extremity function for ADL's. Plan of Care: ADL Retraining, Functional Mobility, UE Funct Exercise/Act, UE Neuromus Re-Ed/Coord, Visual/Perceptual Retrain Treatment Duration: Apr 25, 2020 Frequency: At least 5 of 7 days/Wk (IRF) Estimated Hrs Per Day: 1.5 hours per day Agreement: Yes Rehab Potential: Good Time/GCodes Start Time: 07:30 Stop Time: 09:00 Total Time Billed (hr/min): 90 Billed Treatment Time 1 visit-ADL 4 (60 min) NM 2 (30 min) co-treat with PT [id number] (60 min) individual [id number] (30 min) JOSIAH ESCALANTE Apr 11, 2020 09:03
[2020-04-11] MEDS: TAMSULOSIN 0.4 MG (FLOMAX) CAP PO SCH ×2 (09:20→20:48)
[2020-04-11] MEDS: meTOproloL SUCCINATE 50 MG (TOPROL XL) TAB PO SCH (09:20)
[2020-04-11] MEDS: HYDROcodone/APAP 5 MG/325 MG (LORTAB) TAB PO PRN (09:21)
[2020-04-11] MEDS: BACLOFEN 10 MG (LIORESAL) TAB PO PRN (09:21)
[2020-04-11] MEDS: ASPIRIN 325 MG (5 GR) TABLET PO SCH (09:21)
--- NOTE | 2020-04-11 09:39 | PM&R Progress Note ---
Subjective HPI/CC On Admission Date Seen by Provider: Apr 11, 2020 Time Seen by Provider: 10:45 Subjective/Events-last exam s/p cystoscopy today Urine test is pending Pain pill on rare occasion was given today at the bedside Checked meds and labs Conferred with RN Reviewed therapy notes Review of Systems General: Fatigue, Malaise Neurological: Weakness Objective Exam Vital Signs Vital Signs Date Time Temp Pulse Resp B/P (MAP) Pulse Ox O2 Delivery O2 Flow Rate FiO2 04/11/20 18:00 36.4 70 16 127/63 (84) 98 Room Air Capillary Refill : Less Than 3 Seconds General Appearance: No Apparent Distress, WD/WN, Chronically ill HEENT: PERRL/EOMI, Normal ENT Inspection, Pharynx Normal Neck: Full Range of Motion, Normal Inspection, Non Tender, Supple, Carotid Bruit Respiratory: Chest Non Tender, Lungs Clear, Normal Breath Sounds, No Accessory Muscle Use, No Respiratory Distress Cardiovascular: Regular Rate, Rhythm, No Edema, No Gallop, No JVD, No Murmur, Normal Peripheral Pulses Gastrointestinal: Normal Bowel Sounds, No Organomegaly, No Pulsatile Mass, Non Tender, Soft Back: Normal Inspection, No CVA Tenderness, No Vertebral Tenderness Extremity: Normal Capillary Refill, Normal Inspection, Normal Range of Motion (except left side), Non Tender, No Calf Tenderness, No Pedal Edema Neurologic/Psychiatric: Alert, Oriented x3, No Motor/Sensory Deficits, Normal Mood/Affect, Depressed Affect, Facial Droop (left), Motor Weakness (left sided paresis 0/5 flaccid) Skin: Normal Color, Warm/Dry Lymphatic: No Adenopathy Results/Procedures Lab Patient resulted labs reviewed. FIM Transfers Therapy Code Descriptions/Definitions Functional [place] Measure: 0=Not Assessed/NA 4=Minimal Assistance 1=Total Assistance 5=Supervision or Setup 2=Maximal Assistance 6=Modified [place] 3=Moderate Assistance 7=Complete IndependenceSCALE: Activities may be completed with or without assistive devices. 1-Gtlvrghukv-yqjtzws completes the activity by him/herself with no assistance from a helper. 5-Set-up or Clean-up Assistance-helper sets up or cleans up; patient completes activity. [place] assists only prior to or following the activity. 4-Supervision or Touching Assistance-helper provides verbal cues and/or touching/steadying and/or contact guard assistance as patient completes activity. Assistance may be provided throughout the activity or intermittently. 3-Partial/Moderate Assistance-helper does LESS THAN HALF the effort. [place] lifts, holds or supports trunk or limbs, but provides less than half the effort. 2-Substantial/Maximal Assistance-helper does MORE THAN HALF the effort. [place] lifts or holds trunk or limbs and provides more than half the effort. 5-Wuqgrdaxq-wbsxes does ALL the effort. Patient does none of the effort to complete the activity. Or, the assistance of 2 or more helpers is required for the patient to complete the activity. If activity was not attempted, code reason: 7-Patient Refused. 9-Not Applicable-not attempted and the patient did not perform the activity before the current illness, exacerbation or injury. 10-Not Attempted due to Environmental Limitations-(lack of equipment, weather restraints, etc.). 88-Not Attempted due to Medical Conditions or Safety Concerns. Roll Left to Right (QC): 2 Sit to Lying (QC): 2 Sit to Stand (QC): 2 Chair/Hnf-qq-Yefpa Xfer(QC): 2 Car Transfer (QC): 1 Gait Training Does the Patient Walk?: Yes Distance: 6' x2 Walk 10 feet (QC): 88 Walk 50 ft with 2 Turns(QC): 88 Walk 150 ft (QC): 88 Walking 10ft/uneven surface-QC: 88 Gait Persons Needed: 2 Gait Assistive Device: Parallel Bars Wheelchair Training Does the Pt Use a Wheelchair?: Yes Distance: 150' Wheel 50 ft with 2 turns (QC): 4 Wheel 150 ft (QC): 3 Type of Wheelchair: Manual Stair Training 1 Step (curb) (QC): 88 4 Steps (QC): 88 12 Steps (QC): 88 Balance Picking up an Object (QC): 88 ADL-Treatment Eating (QC): 5 (Set up for eating. Uses regular utensils to eat.) Oral Hygiene (QC): 5 Bathing Location: Chest, Abdomen, Perineal Area Shower/Bathe Self (QC): 1 Upper Body Dressing (QC): 2 Lower Body Dressing (QC): 1 On/Off Footwear (QC): 2 Toileting Hygiene (QC): 1 Toilet Transfer (QC): 1 Assessment/Plan Assessment and Plan Assess & Plan/Chief Complaint Assessment: Catastrophic CVA with left sided flaccidity Left facial droop COVID-19 antibody + Bipolar disorder Autism spectrum Urinary retention Preston cath in place consulted Dr Drake Plan: IRF protocol Dr Drake consultation Monitor bowel function Fall risk CBD oil Mehnaz lift Voiding much better on his own Maintain bladder meds Bowel regimen Decreasing pain medication 04/01/20: Voltaren gel for back pain Lortab for pain Mehnaz lift completely no sit-2-stand ability Flaccid left side continues 04/02/20: Patient went to father's today Continue Voltaren gel for back pain Sit to stand no longer an option needs Mehnaz lift 04/03/20: Bowels moved 2 days ago Laxatives ordered Discontinue the Preston catheter and Dr. Matias will monitor closely for retention Completed Augmentin Baclofen and pain medication taken on a real regular basis prone for dependency and addiction potential 04/04/20: Urology management of urinary retention since catheter removed Continue pain management but addiction potential noted Air mattress to prevent skin breakdown Laxatives due to constipation now 04/05/20: Bowels still not moving, supp and Fleets and SSE will be given Decrease pain meds to Q6hrs due to overuse and narcotic bowel noted complications Addiction potential noted Preston cath replaced and Flomax and Urecholine maintained now 04/06/20: Weaned Lortab Baclofen prn is working well BM regimen to continue Preston cath 04/07/20: Baclofen 10mg at night Maintain BM regimen Likely preston cath will be required again 04/08/20: Preston reinserted Labs stable BM regimen 04/09/20: Improvement in spontaneous urination Maintain Flomax and Urecholine Monitor closely 04/10/20: Disposition pending Continue aggressive therapy Cystoscopy Bladder meds 04/11/20: Had Cysto today by Urology Urinalysis is pending Pain pill on rare occasions (1) Acute right MCA stroke Status: Acute (2) Facial droop due to cerebrovascular accident (CVA) (3) Bipolar disorder (4) Autism spectrum (5) Urinary retention (6) Preston catheter in place (7) Coronavirus infection, unspecified Status: Chronic (8) Left-sided neglect Status: Acute (9) Dysphasia due to recent cerebrovascular accident (CVA) Status: Acute AIDE GATICA DO Apr 11, 2020 09:39
--- NOTE | 2020-04-11 09:57 | Progress Note-Pre Operative ---
Pre-Operative Progress Note H&P Reviewed The H&P was reviewed, patient examined and no changes noted. Date Seen by Provider: Apr 11, 2020 Time Seen by Provider: :56 Date H&P Reviewed: Apr 11, 2020 Time H&P Reviewed: 09:56 Pre-Operative Diagnosis: URINE RETENTION TIFFANIE WOMACK MD Apr 11, 2020 09:57
--- NOTE | 2020-04-11 10:03 | Progress Note-Post Operative ---
Post-Operative Progess Note Surgeon (s)/Mitering Machine Operator (s) Surgeon TIFFANIE WOMACK MD Mitering Machine Operator: NONE Pre-Operative Diagnosis URINE RETENTION Post-Operative Diagnosis SAME Procedure & Operative Findings Date of Procedure 04/11/20 Procedure Performed/Findings CYSTOSCOPY Anesthesia Type LOCAL Estimated Blood Loss Estimated blood loss (mL): NONE Specimens/Packing Specimens Removed NONE Packing: NONE TIFFANIE WOMACK MD Apr 11, 2020 10:02
--- NOTE | 2020-04-11 10:21 | Physical Therapy Daily Note ---
PT Daily Note-Current Subjective Patient in bed pre tx, has to use the bedpan, no complaints of pain. Will be co-treating with OT due to poor patient mobility, strength, endurance, poor sitting and standing balance, left hemiparesis, pushers syndrome, the need to coordinate UE and LE during activity. Appearance Patient in recliner post tx with nurse call, phone, tray, all needs met. Mental Status Patient Orientation: Person, Place, Situation Attachments: [place] Catheter Transfers SCALE: Activities may be completed with or without assistive devices. 9-Uaybclnioq-efbfdtm completes the activity by him/herself with no assistance from a helper. 5-Set-up or Clean-up Assistance-helper sets up or cleans up; patient completes activity. [place] assists only prior to or following the activity. 4-Supervision or Touching Assistance-helper provides verbal cues and/or touching /steadying and/or contact guard assistance as patient completes activity. Assistance may be provided throughout the activity or intermittently. 3-Partial/Moderate Assistance-helper does LESS THAN HALF the effort. [place] lifts, holds or supports trunk or limbs, but provides less than half the effort. 2-Substantial/Maximal Assistance-helper does MORE THAN HALF the effort. [place] lifts or holds trunk or limbs and provides more than half the effort. 4-Flwdjnujd-hfnarg does ALL the effort. Patient does none of the effort to complete the activity. Or, the assistance of 2 or more helpers is required for the patient to complete the activity. If activity was not attempted, code reason: 7-Patient Refused. 9-Not Applicable-not attempted and the patient did not perform the activity before the current illness, exacerbation or injury. 10-Not Attempted due to Environmental Limitations-(lack of equipment, weather restraints, etc.). 88-Not Attempted due to Medical Conditions or Safety Concerns. Roll Left & Right (QC): 2 Lying to Sitting/Side of Bed(Q: 2 Sit to Stand (QC): 2 Chair/Uvh-ix-Rqsha Xfer(QC): 2 Gait Training Distance: 6'x3 Gait Persons Needed: 2 Gait Assistive Device: Parallel Bars max assist, needs assist with balance, cues for stepping and positioning, assist advancing his left leg. Wheelchair Training Does the Pt Use a Wheelchair?: Yes Wheel 50 ft with 2 turns (QC): 3 Wheel 150 ft (QC): 3 Type of Wheelchair: Manual Treatments use bedpan in bed has to roll to place bedpan and for cleaning and then dressing, stand pivot transfer to WC, propel WC to therapy gym, ambulate in parallel bars, propel WC to room, stand pivot to recliner. PT performed bed mobility and transfers, rolling during dressing and BM, WC mobility, ambulation, OT performed dressing, cleaning, assist with transfers, UE positioning and safety during activity. Assessment Current Status: Poor Progress no change in mobility PT Short Term Goals Short Term Goals Time Frame: Apr 04, 2020 Roll Left & Right: 3 Sit to lyin Lying to sitting on side of be: 3 Sit to stand: 3 Chair/kfh-hu-efecq transfer: 2 PT Application Designer Goals Application Designer Goals PT Mcc Goals Time Frame: Apr 18, 2020 Roll Left & Right (QC): 3 (Pablo) Sit to Lying (QC): 3 (Pablo) Lying-Sitting on Side/Bed(QC): 3 (Pablo) Sit to Stand (QC): 3 (Pablo) Chair/Mju-yz-Ofbkk Xfer(QC): 3 (Pablo) Toilet Transfer (QC): 3 (Pablo) Car Transfer (QC): 3 (mod A) Does the Patient Walk: No and Walking Goal NOT indicated Walk 10 feet (QC): 88 Walk 50ft with 2 Turns (QC): 88 Walk 150 ft (QC): 88 Walking 10ft on Uneven Surface: 88 1 Step (curb) (QC): 88 4 Steps (QC): 88 12 Steps (QC): 88 Picking up an Object (QC): 88 Does the Pt use WC or Scooter?: Yes Wheel 50 feet with 2 turns (QC: 3 (Pablo) Type: Manual Wheel 150 feet: 3 (Pablo) Type: Manual PT Plan Problem List Problem List: Activity Tolerance, Functional Strength, Safety, Balance, Gait, Transfer, Bed Mobility, ROM Treatment/Plan Treatment Plan: Continue Plan of Care Treatment Plan: Bed Mobility, Education, Functional Activity [place], Functional Strength, Group Therapy, Gait, Safety, Therapeutic Exercise, Transfers Treatment Duration: Apr 18, 2020 Frequency: At least 5 of 7 days/Wk (IRF) Estimated Hrs Per Day: 1.5 hours per day Patient and/or Family Agrees t: Yes Safety Risks/Education Patient Education: Gait Training, Transfer Techniques, Correct Positioning, Safety Issues Teaching Recipient: Patient Teaching Methods: Demonstration, Discussion Response to Teaching: Reinforcement Needed Time/GCodes Time In: 0800 Time Out: 0900 Total Billed Treatment Time: 60 Total Billed Treatment 1 visit FA 60' co-treated with OT for 60' MARK RYAN PT Apr 11, 2020 10:21
--- NOTE | 2020-04-11 12:30 | NUR ---
Pt voided 300cc per urinal after cysto this morning. Pt states he feels much better after voiding. No complaints related to procedure, will con to monitor. at bedside. Pt eating lunch
--- NOTE | 2020-04-11 14:04 | Physical Therapy Daily Note ---
PT Daily Note-Current Subjective Pt in bed upon arrival with in room. Pt agrees to tx. Mental Status Patient Orientation: Person, Place, Time, Situation Transfers SCALE: Activities may be completed with or without assistive devices. 2-Volrvnckyd-ftyvpej completes the activity by him/herself with no assistance from a helper. 5-Set-up or Clean-up Assistance-helper sets up or cleans up; patient completes a ctivity. [place] assists only prior to or following the activity. 4-Supervision or Touching Assistance-helper provides verbal cues and/or touching/steadying and/or contact guard assistance as patient completes activity. Assistance may be provided throughout the activity or intermittently. 3-Partial/Moderate Assistance-helper does LESS THAN HALF the effort. [place] lifts, holds or supports trunk or limbs, but provides less than half the effort. 2-Substantial/Maximal Assistance-helper does MORE THAN HALF the effort. [place] lifts or holds trunk or limbs and provides more than half the effort. 4-Isfvlrbyg-sswsgi does ALL the effort. Patient does none of the effort to complete the activity. Or, the assistance of 2 or more helpers is required for the patient to complete the activity. If activity was not attempted, code reason: 7-Patient Refused. 9-Not Applicable-not attempted and the patient did not perform the activity before the current illness, exacerbation or injury. 10-Not Attempted due to Environmental Limitations-(lack of equipment, weather restraints, etc.). 88-Not Attempted due to Medical Conditions or Safety Concerns. Treatments Pt in supine as SMOOTH STUCC[employer] RESURFACER performs static hamstring and heel cord stretches, each x2 for approx 45 seconds. Pt repositioned in bed and left with all needs met, call light in hand. Assessment Current Status: Fair Progress Pt voiced pain with stretching in lower back. PT Short Term Goals Short Term Goals Time Frame: Apr 04, 2020 Roll Left & Right: 3 Sit to lyin Lying to sitting on side of be: 3 Sit to stand: 3 Chair/kcq-ap-bmcsb transfer: 2 PT Vocational Technical Education Director Goals Care Home Goals PT Vocational Technical Education Director Goals Time Frame: Apr 18, 2020 Roll Left & Right (QC): 3 (Pablo) Sit to Lying (QC): 3 (Pablo) Lying-Sitting on Side/Bed(QC): 3 (Pablo) Sit to Stand (QC): 3 (Pablo) Chair/Lkl-xf-Lxtaa Xfer(QC): 3 (Pablo) Toilet Transfer (QC): 3 (Pablo) Car Transfer (QC): 3 (mod A) Does the Patient Walk: No and Walking Goal NOT indicated Walk 10 feet (QC): 88 Walk 50ft with 2 Turns (QC): 88 Walk 150 ft (QC): 88 Walking 10ft on Uneven Surface: 88 1 Step (curb) (QC): 88 4 Steps (QC): 88 12 Steps (QC): 88 Picking up an Object (QC): 88 Does the Pt use WC or Scooter?: Yes Wheel 50 feet with 2 turns (QC: 3 (Pablo) Type: Manual Wheel 150 feet: 3 (Pablo) Type: Manual PT Plan Treatment/Plan Treatment Plan: Continue Plan of Care Treatment Plan: Bed Mobility, Education, Functional Activity [place], Functional Strength, Group Therapy, Gait, Safety, Therapeutic Exercise, Transfers Treatment Duration: Apr 18, 2020 Frequency: At least 5 of 7 days/Wk (IRF) Estimated Hrs Per Day: 1.5 hours per day Patient and/or Family Agrees t: Yes Safety Risks/Education Patient Education: Correct Positioning, Safety Issues Teaching Recipient: Patient Teaching Methods: Discussion Response to Teaching: Verbalize Understanding Time/GCodes Time In: 1345 Time Out: 1400 Total Billed Treatment Time: 15 Total Billed Treatment 1, MONSE B[facility] Apr 11, 2020 14:04
--- NOTE | 2020-04-11 14:06 | Speech Therapy Daily Note ---
Speech Daily Progress Note Subjective Date Seen by Provider: Apr 11, 2020 Time Seen by Provider: 00:30 Patient was resting in bed when I entered his room. His was present. Objective Patient completed random list of questions with a common initial letter at 80% with 20% verbal cues. Assessment Assessment Current Status: Good Progress Treatment Plan Continue Plan of Care Speech Short Term Goals Short Term Goals Short Term Goals 1) Patient will complete memory tasks related to his daily needs at 90% or greater with minimal cues. 2) Patient will complete safety awareness tasks related to his daily needs at 90% or greater with minimal cues. 3) Patient will complete problem solving tasks related to his daily needs at 90% or greater with minimal cues. 4) Patient will tolerate least restrictive diet level without s/s of aspiration at 90% or greater. 5) Patient/caregiver will utilize compensatory strategies as trained at 90% or greater with minimal cues. Speech Special Warfare Combatant Crewman Goals Special Warfare Combatant Crewman Goals Patient will improve cognitive-communication necessary for safety and daily living tasks with minimal assist. Patient will maintain adequate nutrition/hydration via safe effective swallow function. Speech-Plan Patient/Family Goals Patient/Family Goals: Patient will discharge home with family. Treatment Plan Speech Therapy Treatment Plan: Continue Plan of Care Treatment Duration: Apr 12, 2020 Frequency: 5 times per week Estimated Hrs Per Day: .5 hour per day Rehab Potential: Good Barriers to Learning: Patient's medical status Pt/Family Agrees to Plan: Yes Safety Risks/Education Teaching Recipient: Patient, Significant Other Teaching Methods: Demonstration, Discussion Response to Teaching: Verbalize Understanding, Return Demonstration Education Topics Provided: Safety within the room Time Speech Therapy Time In: 11:30 Speech Therapy Time Out: 12:00 Total Billed Time: 30 Billed Treatment Time LEVI Correa [facility] Apr 11, 2020 14:06
--- NOTE | 2020-04-11 15:32 | NUR ---
CM/SS PATIENT CARE CONFERENCE Provided a copy of Summary for patient and spouse Carole to review. Spouse noted a comment on document, signature obtained, charted. Both understand that patient next review will be Wednesday, April 17, 2020, and are in agreement to his continued stay and participation with ARU team. Carole indicates that friends continue to clear trees from their front yard so that a suitable structure can be built for patient to return to. Their original plan was for a "tiny home" modified shed, but after patient's unexpected illness and situation, they continue to try to modify and adjust the plan to meet the additional space that will be needed for navigation of patient via wheelchair and perhaps a sebastien lift. They may need to consider staying at the home of a friend or some other temporary alternative since turnaround time does not seem adequate between patient's likely discharge and the residential renewal. Continue to partner with them regarding this matter and overall discharge needs.
[2020-04-11] MEDS: ENOXAPARIN 40 MG/0.4 ML (LOVENOX) SYR SC SCH (17:23)
[2020-04-11 18:00] VITALS: BP 127/63
--- NOTE | 2020-04-11 18:39 | NUR ---
Voided an aditional 200cc at 1800. 350 at 1600
[2020-04-11] MEDS: BACLOFEN 10 MG (LIORESAL) TAB PO SCH (20:48)
[2020-04-11] MEDS: SERTRALINE 50 MG (ZOLOFT) TABLET PO SCH (20:49)
--- NOTE | 2020-04-11 22:00 | NUR ---
Bladder scan - unable to find anything. Will bladder scan again in 4 hours
--- NOTE | 2020-04-12 03:00 | NUR ---
Bladder scan - 400 Straight cath - 300 Post straight cath bladder scan - 85
[2020-04-12 05:19] VITALS: BP 131/72
[2020-04-12] MEDS: BETHANECHOL 25 MG (URECHOLINE) TAB PO SCH ×4 (06:04→22:29)
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
--- NOTE | 2020-04-12 07:00 | NUR ---
Bladder Scan - 471 ml Straight Cath - 500 ml out
[2020-04-12] MEDS: ASPIRIN 325 MG (5 GR) TABLET PO SCH (08:15)
[2020-04-12] MEDS: SENNA W/DOCUSATE (SENOKOT S) TABLET PO SCH ×2 (08:15→22:28)
[2020-04-12] MEDS: meTOproloL SUCCINATE 50 MG (TOPROL XL) TAB PO SCH (08:15)
[2020-04-12] MEDS: BACLOFEN 10 MG (LIORESAL) TAB PO PRN (08:16)
[2020-04-12] MEDS: TAMSULOSIN 0.4 MG (FLOMAX) CAP PO SCH ×2 (08:16→22:28)
[2020-04-12] MEDS: polyethylene glycoL POWDER 17 GM (MIRALAX) PACK PO SCH ×2 (08:16→20:30)
[2020-04-12] MEDS: DOCUSATE SODIUM 100 MG (COLACE) CAP PO SCH ×2 (08:16→20:30)
--- NOTE | 2020-04-12 09:01 | Occupational Ther Daily Note ---
OT Current Status-Daily Note Subjective Pt in supine bed when OT entered room. No c/o pain. Pt. agreeable to therapy. Mental Status/Objective Patient Orientation: Person, Place, Time, Situation ADL-Treatment Therapy Code Descriptions/Definitions Functional [place] Measure: 0=Not Assessed/NA 4=Minimal Assistance 1=Total Assistance 5=Supervision or Setup 2=Maximal Assistance 6=Modified [place] 3=Moderate Assistance 7=Complete IndependenceSCALE: Activities may be completed with or without assistive devices. 8-Rzbrxlkaqq-kckoccq completes the activity by him/herself with no assistance from a helper. 5-Set-up or Clean-up Assistance-helper sets up or cleans up; patient completes activity. [place] assists only prior to or following the activity. 4-Supervision or Touching Assistance-helper provides verbal cues and/or touching/steadying and/or contact guard assistance as patient completes activity. Assistance may be provided throughout the activity or intermittently. 3-Partial/Moderate Assistance-helper does LESS THAN HALF the effort. [place] lifts, holds or supports trunk or limbs, but provides less than half the effort. 2-Substantial/Maximal Assistance-helper does MORE THAN HALF the effort. [place] lifts or holds trunk or limbs and provides more than half the effort. 6-Baufnjrjj-wtlvbq does ALL the effort. Patient does none of the effort to complete the activity. Or, the assistance of 2 or more helpers is required for the patient to complete the activity. If activity was not attempted, code reason: 7-Patient Refused. 9-Not Applicable-not attempted and the patient did not perform the activity before the current illness, exacerbation or injury. 10-Not Attempted due to Environmental Limitations-(lack of equipment, weather restraints, etc.). 88-Not Attempted due to Medical Conditions or Safety Concerns. Oral Hygiene (QC): 4 Lower Body Dressing (QC): 1 On/Off Footwear: 2 (Max A) Toileting Hygiene (QC): 1 Toilet Transfer (QC): 2 Co-treatment with PT as the pt requires the assistance of two skilled therapists due to impulsivity during mobility/transfers, decreased body awareness for positioning during functional tasks and neuromuscular retraining. PT focusing on w/c mobility and transfers. OT facilitating ADL skills, positioning of R UE, as well as, functional mobility and transfers. Pt lying in bed when OT entered room. Pt. requested using bed mos[place]o. Min A required for rolling towards left side to position bed mos[place]o. Pt. had BM and required dependent assist to cleanse audrey area and don clean brief. Max A to don shoes with pt facilitating by lifting R leg. Supine-sit transfer required max A, verbal cues, and extra time for pt to process. Pt. required Mod A to transfer EOB to w/c. Once in w/c, pt. placed in front of sink to complete grooming. Pt. educated on one handed techniques to remove toothpaste cap. Pt verbalized understanding and required min A to complete task. Pt. independently washed face after set up. After cleaning up, pt. cued to self-propel w/c to therapy gym, approximately, 400 ft with min A for turning. Once in gym, pt. required Mod A to transfer from w/c to mat. Pt. cued to practice rolling to R side, the direction that he exits the bed at home. He had difficulty with problem solving and sequencing task. Task was broken down to 3 step sequence and repeated each time for all 5 attempts. Pt. required Max A but progressed to CGA for roll onto R side. Pt tolerated 15 minutes of weight bearing through B UE while seated edge of mat, leaning down to each elbow and using core muscles to return to upright position. Sit-stand transfer practiced 15 times with rest breaks between sets. Verbal cues needed to initiate rest breaks, as well as, to slow down to safely complete task. entered gym. With present for family training, pt attempted to complete R side rolling unable to retain sequence requiring max A initially then progressed to less physical cues. Pt. completed 5 times to reinforce sequencing and educate on process. Transfer EOB to w/c with Max A. Pt. self propelled back to room with Min A. Transfer from w/c to reclining chair required Max A. Call light and phone within reach. in room. All needs met. Education OT Patient Education: Correct positioning, Energy conservation, Exercise program, Instructions to caregiver, Modified ADL techniques, Progress toward Goal/Update tx plan, Purpose of tx/functional activities, Reviewed precautions, Rehab process, Safety issues, Transfer techniques, W/C management Teaching Recipient: Patient, Family Teaching Methods: Demonstration, Discussion Response to Teaching: Verbalize Understanding, Return Demonstration, Reinforcement Needed OT Short Term Goals Short Term Goals Time Frame: Apr 11, 2020 Eatin Oral hygiene: 3 Toileting hygiene: 3 Shower/bathe self: 2 Upper body dressin Lower body dressin Putting on/taking off footwear: 2 OT Skilled Nursing Goals Skilled Nursing Goals Time Frame: Apr 25, 2020 Eating (QC): 4 Oral Hygiene (QC): 4 Toileting Hygiene (QC): 3 Shower/Bathe Self (QC): 3 Upper Body Dressing (QC): 4 Lower Body Dressing (QC): 4 On/Off Footwear (QC): 4 Additional Goals: 1-Demonstrate ADL Tasks, 2-Verbalize Understanding, 3-Imp roveStrength/[place] 1=Demonstrate adherence to instructed precautions during ADL tasks. 2=Patient will verbalize/demonstrate understanding of assistive devices/modifications for ADL. 3=Patient will improve strength/tolerance for activity to enable patient to perform ADL's. OT Education/Plan Problem List/Assessment Assessment: Decreased Activ Tolerance, Decreased Safety Aware, Decreased UE Strength, Dependent Transfers, Impaired Bed Mobility, Impaired Cognition, I mpaired Coordination, Impaired Funct Balance, Impaired I ADL's, Impaired Self- Care Skills, Restricted Funct UE ROM Discharge Recommendations Plan/Recommendations: Continue POC Therapy Discharge Recommendati: 24 Hour Supervision Treatment Plan/Plan of Care Treatment,Training & Education: Yes Patient would benefit from OT for education, treatment and training to promote independence in ADL's, mobility, safety and/or upper extremity function for ADL's. Plan of Care: ADL Retraining, Functional Mobility, UE Funct Exercise/Act, UE Neuromus Re-Ed/Coord, Visual/Perceptual Retrain Treatment Duration: Apr 25, 2020 Frequency: At least 5 of 7 days/Wk (IRF) Estimated Hrs Per Day: 1.5 hours per day Agreement: Yes Rehab Potential: Good Time/GCodes Start Time: 07:30 Stop Time: 09:00 Total Time Billed (hr/min): 90 Billed Treatment Time 1, ADL 3 (45 minutes), NM 3 (45 minutes) Co-treat with PT ([id number]), individual ([id number]). See above note for designated roles. JOSIAH ESCALANTE Apr 12, 2020 09:01
--- NOTE | 2020-04-12 10:15 | Physical Therapy Daily Note ---
PT Daily Note-Current Subjective Patient in bed pre tx, agrees to PT, voices no complaints of pain. Will be co- treating with OT due to poor patient mobility, strength, endurance, sitting and standing balance, left hemiparesis, the need to coordinate UE and LE during activity, decrease risk of falls. Appearance Patient in recliner post tx with nurse call, phone, tray, in room. Mental Status Patient Orientation: Person, Place, Situation Transfers SCALE: Activities may be completed with or without assistive devices. 3-Xlonyzluzg-lspiioc completes the activity by him/herself with no assistance from a helper. 5-Set-up or Clean-up Assistance-helper sets up or cleans up; patient completes activity. [place] assists only prior to or following the activity. 4-Supervision or Touching Assistance-helper provides verbal cues and/or touching/steadying and/or contact guard assistance as patient completes activity. Assistance may be provided throughout the activity or intermittently. 3-Partial/Moderate Assistance-helper does LESS THAN HALF the effort. [place] lifts, holds or supports trunk or limbs, but provides less than half the effort. 2-Substantial/Maximal Assistance-helper does MORE THAN HALF the effort. [place] lifts or holds trunk or limbs and provides more than half the effort. 7-Zyhzahglj-gasqiu does ALL the effort. Patient does none of the effort to complete the activity. Or, the assistance of 2 or more helpers is required for the patient to complete the activity. If activity was not attempted, code reason: 7-Patient Refused. 9-Not Applicable-not attempted and the patient did not perform the activity before the current illness, exacerbation or injury. 10-Not Attempted due to Environmental Limitations-(lack of equipment, weather restraints, etc.). 88-Not Attempted due to Medical Conditions or Safety Concerns. Roll Left & Right (QC): 2 Sit to Lying (QC): 2 Lying to Sitting/Side of Bed(Q: 2 Sit to Stand (QC): 3 Chair/Koe-mf-Assrv Xfer(QC): 3 Patient transferred supine to sit, transferred to , propelled WC to therapy gym, transferred to therapy table, layed down, practice rolling from side to side 3 sets of 5, cues for positioning, sat up and practiced sitting balance and limits of stability training, sit to stand 1 set of 5, 2 sets of 10, transferred back to WC, propel back to room and then into recliner. Wheelchair Training Does the Pt Use a Wheelchair?: Yes Wheel 50 ft with 2 turns (QC): 3 Wheel 150 ft (QC): 3 Type of Wheelchair: Manual Treatments bed mobility and transfer training, balance training, functional strengthening. PT worked on bed mobility and rolling and transfers, sit to stand, sitting balance, WC mobility, OT worked on UE positioning and safety during activity, assist with balance training and bed mobility training. Assessment Current Status: Poor Progress Patient had a lot of trouble comprehending directions for rolling and supine <-> sit, was more impulsive, PT Short Term Goals Short Term Goals Time Frame: Apr 04, 2020 Roll Left & Right: 3 Sit to lyin Lying to sitting on side of be: 3 Sit to stand: 3 Chair/yxg-zc-ujstt transfer: 2 PT Senior Living Goals Senior Living Goals PT Senior Living Goals Time Frame: Apr 18, 2020 Roll Left & Right (QC): 3 (Pablo) Sit to Lying (QC): 3 (Pablo) Lying-Sitting on Side/Bed(QC): 3 (Pablo) Sit to Stand (QC): 3 (Pablo) Chair/Sgx-ht-Ihyjx Xfer(QC): 3 (Pablo) Toilet Transfer (QC): 3 (Pablo) Car Transfer (QC): 3 (mod A) Does the Patient Walk: No and Walking Goal NOT indicated Walk 10 feet (QC): 88 Walk 50ft with 2 Turns (QC): 88 Walk 150 ft (QC): 88 Walking 10ft on Uneven Surface: 88 1 Step (curb) (QC): 88 4 Steps (QC): 88 12 Steps (QC): 88 Picking up an Object (QC): 88 Does the Pt use WC or Scooter?: Yes Wheel 50 feet with 2 turns (QC: 3 (Pablo) Type: Manual Wheel 150 feet: 3 (Pablo) Type: Manual PT Plan Problem List Problem List: Activity Tolerance, Functional Strength, Safety, Balance, Gait, Transfer, Bed Mobility, ROM Treatment/Plan Treatment Plan: Continue Plan of Care Treatment Plan: Bed Mobility, Education, Functional Activity [place], Functional Strength, Group Therapy, Gait, Safety, Therapeutic Exercise, Transfers Treatment Duration: Apr 18, 2020 Frequency: At least 5 of 7 days/Wk (IRF) Estimated Hrs Per Day: 1.5 hours per day Patient and/or Family Agrees t: Yes Safety Risks/Education Patient Education: Transfer Techniques, Correct Positioning, W/C Management, Safety Issues Teaching Recipient: Patient Teaching Methods: Demonstration, Discussion Response to Teaching: Reinforcement Needed Time/GCodes Time In: 0800 Time Out: 0900 Total Billed Treatment Time: 60 Total Billed Treatment 1 visit NM 15' WC 15' FA 30' co-treated with OT for 60 min MARK RYAN PT Apr 12, 2020 10:15
[2020-04-12] MEDS: PATCH REMOVAL TP SCH (12:06)
--- NOTE | 2020-04-12 12:57 | Physical Therapy Daily Note ---
PT Daily Note-Current Subjective Patient in bed pre tx, agrees to PT, has no complaints of pain at rest. Appearance Patient in bed post tx with nurse call, phone, tray, all needs met, laying on left side for pressure relief, in room. Mental Status Patient Orientation: Person, Place, Situation Transfers SCALE: Activities may be completed with or without assistive devices. 6-Wcnvwmlhkb-owzzorj completes the activity by him/herself with no assistance from a helper. 5-Set-up or Clean-up Assistance-helper sets up or cleans up; patient completes activity. [place] assists only prior to or following the activity. 4-Supervision or Touching Assistance-helper provides verbal cues and/or touching/steadying and/or contact guard assistance as patient completes activi ty. Assistance may be provided throughout the activity or intermittently. 3-Partial/Moderate Assistance-helper does LESS THAN HALF the effort. [place] lifts, holds or supports trunk or limbs, but provides less than half the effort. 2-Substantial/Maximal Assistance-helper does MORE THAN HALF the effort. [place] lifts or holds trunk or limbs and provides more than half the effort. 0-Hxicvlpnm-bgzvgb does ALL the effort. Patient does none of the effort to complete the activity. Or, the assistance of 2 or more helpers is required for the patient to complete the activity. If activity was not attempted, code reason: 7-Patient Refused. 9-Not Applicable-not attempted and the patient did not perform the activity before the current illness, exacerbation or injury. 10-Not Attempted due to Environmental Limitations-(lack of equipment, weather restraints, etc.). 88-Not Attempted due to Medical Conditions or Safety Concerns. Exercises Supine Ex: Ankle pumps, Quad Set, Glut sets, Heel Slides, Short Arc Quads, Straight leg raise, Hip abd/add Supine Reps: 20 (RLE) LLE stretching in all planes. Treatments LE exercise Assessment Current Status: Poor Progress no change in mobility PT Short Term Goals Short Term Goals Time Frame: Apr 04, 2020 Roll Left & Right: 3 Sit to lyin Lying to sitting on side of be: 3 Sit to stand: 3 Chair/gqm-zk-kirvf transfer: 2 PT Head Gauge Unit Operator Goals Head Gauge Unit Operator Goals PT Usp Goals Time Frame: Apr 18, 2020 Roll Left & Right (QC): 3 (Pablo) Sit to Lying (QC): 3 (Pablo) Lying-Sitting on Side/Bed(QC): 3 (Pablo) Sit to Stand (QC): 3 (Pablo) Chair/Brx-bb-Qxdhp Xfer(QC): 3 (Pablo) Toilet Transfer (QC): 3 (Pablo) Car Transfer (QC): 3 (mod A) Does the Patient Walk: No and Walking Goal NOT indicated Walk 10 feet (QC): 88 Walk 50ft with 2 Turns (QC): 88 Walk 150 ft (QC): 88 Walking 10ft on Uneven Surface: 88 1 Step (curb) (QC): 88 4 Steps (QC): 88 12 Steps (QC): 88 Picking up an Object (QC): 88 Does the Pt use WC or Scooter?: Yes Wheel 50 feet with 2 turns (QC: 3 (Pablo) Type: Manual Wheel 150 feet: 3 (Pablo) Type: Manual PT Plan Problem List Problem List: Activity Tolerance, Functional Strength, Safety, Balance, Gait, Transfer, Bed Mobility, ROM Treatment/Plan Treatment Plan: Continue Plan of Care Treatment Plan: Bed Mobility, Education, Functional Activity [place], Functional Strength, Group Therapy, Gait, Safety, Therapeutic Exercise, Transfers Treatment Duration: Apr 18, 2020 Frequency: At least 5 of 7 days/Wk (IRF) Estimated Hrs Per Day: 1.5 hours per day Patient and/or Family Agrees t: Yes Safety Risks/Education Patient Education: Correct Positioning, Safety Issues Teaching Recipient: Patient Teaching Methods: Demonstration, Discussion Response to Teaching: Reinforcement Needed Time/GCodes Time In: 1335 Time Out: 1355 Total Billed Treatment Time: 20 Total Billed Treatment 1 visit EX 20' MARK RYAN PT Apr 12, 2020 12:56
--- NOTE | 2020-04-12 13:16 | Progress Note - Urology ---
Progress Note-Urology Progress Notes/Assess & Plan Progress/Assessment & Plan NOT VOIDING WELL. PLAN ECHEVARRIA TO GIVE REST Final Diagnosis URINE RETENTION TIFFANIE WOMACK MD Apr 12, 2020 13:16
--- NOTE | 2020-04-12 13:29 | Speech Therapy Daily Note ---
Speech Daily Progress Note Subjective Date Seen by Provider: Apr 12, 2020 Time Seen by Provider: 00:30 Patient was sitting up in his recliner waiting on lunch when I entered. Objective Patient completed speech task with given a consonant letter, all answers must begin with at 90% given increased verbal cues. Assessment Assessment Current Status: Good Progress Treatment Plan Continue Plan of Care Speech Short Term Goals Short Term Goals Short Term Goals 1) Patient will complete memory tasks related to his daily needs at 90% or greater with minimal cues. 2) Patient will complete safety awareness tasks related to his daily needs at 90% or greater with minimal cues. 3) Patient will complete problem solving tasks related to his daily needs at 90% or greater with minimal cues. 4) Patient will tolerate least restrictive diet level without s/s of aspiration at 90% or greater. 5) Patient/caregiver will utilize compensatory strategies as trained at 90% or greater with minimal cues. Speech Summer Counselor Goals Summer Counselor Goals Patient will improve cognitive-communication necessary for safety and daily living tasks with minimal assist. Patient will maintain adequate nutrition/hydration via safe effective swallow function. Speech-Plan Patient/Family Goals Patient/Family Goals: Patient's planning on returning to his home where he lives with his . Treatment Plan Speech Therapy Treatment Plan: Continue Plan of Care Treatment Duration: Apr 12, 2020 Frequency: 5 times per week Estimated Hrs Per Day: .5 hour per day Rehab Potential: Good Barriers to Learning: Patient's CVA, decreased cognitive, however much of his cognitive is resolving Pt/Family Agrees to Plan: Yes Safety Risks/Education Teaching Recipient: Patient, Significant Other Teaching Methods: Demonstration, Discussion Response to Teaching: Verbalize Understanding, Return Demonstration Education Topics Provided: Continued safety and communication Time Speech Therapy Time In: 11:30 Speech Therapy Time Out: 12:00 Total Billed Time: 30 Billed Treatment Time [address] Apr 12, 2020 13:29
--- NOTE | 2020-04-12 14:00 | NUR ---
"RD ASSESSMENT PMHx: HTN; developmental disorder; PT INTERACTION: Pt was awake and pleasant during nutrition follow-up. Pt states he has been eating well since last assessment. Note avg PO intake 100% x4d, per chart review. Pt states no issues with nausea, vomiting, constipation, or diarrhea. Note last BM was 04/11 and pt currently on bowel regimen of colace BID, senna BID, and miralax BID, per chart review. ABNORMAL NUTRITION-RELATED LAB VALUES LOW: HIGH: BUN 20; glu 108; AST 39 Est. kcal needs: 1375 kcal | 15 kcal/kg Est. Pro needs: 73 g Pro | 0.8 g Pro/kg PES STATEMENT: Given current PO intake, no nutrition diagnosis at this time (NO-1.1) INTERVENTION: Continue with current diet order of DYS2 Mechanically Altered diet. Will continue to follow and reassess as pt needs, intake, and status change. MONITOR/EVALUATE: PO Intake; Plan of Care; Hydration Status; Weight Status; Lab Values Jodi Hassan, MS, RD, LD"
[2020-04-12] MEDS ORDERED: LIDOCAINE UROJET 2% GEL 10 ML PKG ONE (15:07)
[2020-04-12] MEDS: LIDOCAINE UROJET 2% GEL 10 ML PKG TOP PRN (15:34)
[2020-04-12] MEDS: TRIM/SULFAMETH 160/800 (SEPTRA DS) TAB PO SCH (16:30)
[2020-04-12] MEDS: ENOXAPARIN 40 MG/0.4 ML (LOVENOX) SYR SC SCH (16:30)
[2020-04-12 17:18] VITALS: BP 134/75
[2020-04-12] MEDS: HYDROcodone/APAP 5 MG/325 MG (LORTAB) TAB PO PRN (22:27)
[2020-04-12] MEDS: SERTRALINE 50 MG (ZOLOFT) TABLET PO SCH (22:28)
[2020-04-12] MEDS: BACLOFEN 10 MG (LIORESAL) TAB PO SCH (22:29)
[2020-04-13] MEDS: BETHANECHOL 25 MG (URECHOLINE) TAB PO SCH ×4 (06:29→20:44)
[2020-04-13 06:30] VITALS: BP 128/70
[2020-04-13] MEDS: TAMSULOSIN 0.4 MG (FLOMAX) CAP PO SCH ×2 (09:09→20:44)
[2020-04-13] MEDS: TRIM/SULFAMETH 160/800 (SEPTRA DS) TAB PO SCH ×2 (09:09→17:55)
[2020-04-13] MEDS: meTOproloL SUCCINATE 50 MG (TOPROL XL) TAB PO SCH (09:09)
[2020-04-13] MEDS: SENNA W/DOCUSATE (SENOKOT S) TABLET PO SCH ×2 (09:09→20:45)
[2020-04-13] MEDS: ASPIRIN 325 MG (5 GR) TABLET PO SCH (09:09)
[2020-04-13] MEDS: BACLOFEN 10 MG (LIORESAL) TAB PO PRN (09:10)
[2020-04-13] MEDS: polyethylene glycoL POWDER 17 GM (MIRALAX) PACK PO SCH ×2 (09:10→20:45)
[2020-04-13] MEDS: DOCUSATE SODIUM 100 MG (COLACE) CAP PO SCH ×3 (09:10→20:45)
--- NOTE | 2020-04-13 10:53 | Physical Therapy Daily Note ---
PT Daily Note-Current Subjective Patient in bed pre tx, agrees to PT, no complaints of pain, needs pants put on, dependent for this. Appearance Patient in recliner post tx with nurse call, phone, tray, all needs met. Mental Status Patient Orientation: Person, Place, Situation Attachments: [place] Catheter Transfers SCALE: Activities may be completed with or without assistive devices. 8-Ezplcewamh-avzotgd completes the activity by him/herself with no assistance from a helper. 5-Set-up or Clean-up Assistance-helper sets up or cleans up; patient completes activity. [place] assists only prior to or following the activity. 4-Supervision or Touching Assistance-helper provides verbal cues and/or touching/steadying and/or contact guard assistance as patient completes activity. Assistance may be provided throughout the activity or intermittently. 3-Partial/Moderate Assistance-helper does LESS THAN HALF the effort. [place] lifts, holds or supports trunk or limbs, but provides less than half the effort. 2-Substantial/Maximal Assistance-helper does MORE THAN HALF the effort. [place] lifts or holds trunk or limbs and provides more than half the effort. 1-Pkdwyoqkf-fpwvfs does ALL the effort. Patient does none of the effort to complete the activity. Or, the assistance of 2 or more helpers is required for the patient to complete the activity. If activity was not attempted, code reason: 7-Patient Refused. 9-Not Applicable-not attempted and the patient did not perform the activity before the current illness, exacerbation or injury. 10-Not Attempted due to Environmental Limitations-(lack of equipment, weather restraints, etc.). 88-Not Attempted due to Medical Conditions or Safety Concerns. Roll Left & Right (QC): 2 Lying to Sitting/Side of Bed(Q: 1 Sit to Stand (QC): 2 Dependent for supine to sit, patient has difficulty following directions for positioning, poor sitting balance, stand pivot to the right to get into the recliner with max assist. Exercises Seated Therapy Exercises: Ankle pumps, Long arc quads, Hip flexion Seated Reps: 20 (RLE) LLE stretching in all planes Assessment Current Status: Poor Progress no change in mobility PT Short Term Goals Short Term Goals Time Frame: Apr 04, 2020 Roll Left & Right: 3 Sit to lyin Lying to sitting on side of be: 3 Sit to stand: 3 Chair/sbf-sm-evuuu transfer: 2 PT Penitentiary Goals Piano Maker Goals PT Penitentiary Goals Time Frame: Apr 18, 2020 Roll Left & Right (QC): 3 (Pablo) Sit to Lying (QC): 3 (Pablo) Lying-Sitting on Side/Bed(QC): 3 (Pablo) Sit to Stand (QC): 3 (Pablo) Chair/Ijz-qb-Xftxi Xfer(QC): 3 (Pablo) Toilet Transfer (QC): 3 (Pablo) Car Transfer (QC): 3 (mod A) Does the Patient Walk: No and Walking Goal NOT indicated Walk 10 feet (QC): 88 Walk 50ft with 2 Turns (QC): 88 Walk 150 ft (QC): 88 Walking 10ft on Uneven Surface: 88 1 Step (curb) (QC): 88 4 Steps (QC): 88 12 Steps (QC): 88 Picking up an Object (QC): 88 Does the Pt use WC or Scooter?: Yes Wheel 50 feet with 2 turns (QC: 3 (Pablo) Type: Manual Wheel 150 feet: 3 (Pablo) Type: Manual PT Plan Problem List Problem List: Activity Tolerance, Functional Strength, Safety, Balance, Gait, Transfer, Bed Mobility, ROM Treatment/Plan Treatment Plan: Continue Plan of Care Treatment Plan: Bed Mobility, Education, Functional Activity [place], Functional Strength, Group Therapy, Gait, Safety, Therapeutic Exercise, Transfers Treatment Duration: Apr 18, 2020 Frequency: At least 5 of 7 days/Wk (IRF) Estimated Hrs Per Day: 1.5 hours per day Patient and/or Family Agrees t: Yes Safety Risks/Education Patient Education: Transfer Techniques, Correct Positioning, Safety Issues Teaching Recipient: Patient Teaching Methods: Demonstration, Discussion Response to Teaching: Reinforcement Needed Time/GCodes Time In: 1011 Time Out: 1024 Total Billed Treatment Time: 13 Total Billed Treatment 1 visit FA 13' MARK RYAN PT Apr 13, 2020 10:53
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
[2020-04-13] MEDS: ENOXAPARIN 40 MG/0.4 ML (LOVENOX) SYR SC SCH (16:30)
[2020-04-13 18:30] VITALS: BP 132/62
--- NOTE | 2020-04-13 20:00 | NUR ---
STATES NO PAIN. PLEASANT AND COOPERATIVE. REPOSITIONED. NO COMPLAINTS.
[2020-04-13] MEDS: BACLOFEN 10 MG (LIORESAL) TAB PO SCH (20:44)
[2020-04-13] MEDS: SERTRALINE 50 MG (ZOLOFT) TABLET PO SCH (20:45)
[2020-04-14 06:00] VITALS: BP 138/74
--- NOTE | 2020-04-14 06:00 | NUR ---
SLEPT WELL. MEDICATED WITH BACLOFEN.
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
[2020-04-14] MEDS: BETHANECHOL 25 MG (URECHOLINE) TAB PO SCH ×4 (06:40→20:48)
[2020-04-14] MEDS: BACLOFEN 10 MG (LIORESAL) TAB PO PRN ×2 (06:40→09:36)
[2020-04-14] MEDS: TRIM/SULFAMETH 160/800 (SEPTRA DS) TAB PO SCH ×2 (09:36→17:07)
[2020-04-14] MEDS: TAMSULOSIN 0.4 MG (FLOMAX) CAP PO SCH ×2 (09:36→20:48)
[2020-04-14] MEDS: meTOproloL SUCCINATE 50 MG (TOPROL XL) TAB PO SCH (09:36)
[2020-04-14] MEDS: ASPIRIN 325 MG (5 GR) TABLET PO SCH (09:36)
[2020-04-14] MEDS: SENNA W/DOCUSATE (SENOKOT S) TABLET PO SCH ×2 (09:37→20:49)
[2020-04-14] MEDS: DOCUSATE SODIUM 100 MG (COLACE) CAP PO SCH ×2 (09:37→20:49)
[2020-04-14] MEDS: polyethylene glycoL POWDER 17 GM (MIRALAX) PACK PO SCH ×2 (09:37→20:49)
[2020-04-14] MEDS: WITCH HAZEL(TUCKS) 40 EA JAR TOP SCH ×3 (13:00→20:50)
[2020-04-14] MEDS: ENOXAPARIN 40 MG/0.4 ML (LOVENOX) SYR SC SCH (17:23)
[2020-04-14 17:48] VITALS: BP 117/62
[2020-04-14] MEDS: BACLOFEN 10 MG (LIORESAL) TAB PO SCH (20:48)
[2020-04-14] MEDS: SERTRALINE 50 MG (ZOLOFT) TABLET PO SCH (20:48)
--- NOTE | 2020-04-14 21:00 | NUR ---
COMPLAIN TIRED AND READY FOR BED. DENIES PAIN. STATES HAD A FAIRLY GOOD DAY.
[2020-04-15] MEDS: BACLOFEN 10 MG (LIORESAL) TAB PO PRN ×2 (05:23→11:19)
[2020-04-15] MEDS: BETHANECHOL 25 MG (URECHOLINE) TAB PO SCH ×4 (05:23→20:21)
[2020-04-15 05:54] LABS: BASOPHILS % (AUTO) 0 % (0-10); EOSINOPHILS # (AUTO) 0.3 10^3/uL (0.0-0.3); EOSINOPHILS % (AUTO) 4 % (0-10); HEMATOCRIT 37 % (40-54); HEMOGLOBIN 11.7 G/DL (13.3-17.7); LYMPHOCYTES # (AUTO) 1.8 X 10^3 (1.0-4.0); LYMPHOCYTES % (AUTO) 24 % (12-44); MEAN CORPUSCULAR HEMOGLOBIN 29 PG (25-34); MEAN CORPUSCULAR HGB CONC 32 G/DL (32-36); MEAN CORPUSCULAR VOLUME 90 FL (80-99); MEAN PLATELET VOLUME 11.2 FL (7.4-10.4); MONOCYTES # (AUTO) 0.4 X 10^3 (0.0-1.0); MONOCYTES % (AUTO) 6 % (0-12); NEUTROPHILS # (AUTO) 5.1 X 10^3 (1.8-7.8); NEUTROPHILS % (AUTO) 67 % (42-75); PLATELET COUNT 287 10^3/uL (130-400); RED CELL DISTRIBUTION WIDTH 13.4 % (10.0-14.5); WHITE BLOOD COUNT 7.6 10^3/uL (4.3-11.0)
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
[2020-04-15 06:03] LABS: ALBUMIN 3.7 GM/DL (3.2-4.5); CHLORIDE 108 MMOL/L (98-107); SODIUM 140 MMOL/L (135-145)
[2020-04-15 06:06] LABS: GLUCOSE 112 MG/DL (70-105); TOTAL PROTEIN 6.6 GM/DL (6.4-8.2)
[2020-04-15 06:07] LABS: BILIRUBIN,TOTAL 0.4 MG/DL (0.1-1.0); CARBON DIOXIDE 21 MMOL/L (21-32)
[2020-04-15 06:09] LABS: ALKALINE PHOSPHATASE 68 U/L (40-136); CREATININE SERUM 0.78 MG/DL (0.60-1.30); GFR ESTIMATED > 60
[2020-04-15 06:10] LABS: BUN/CREATININE RATIO 29
[2020-04-15 06:12] LABS: ALANINE AMINOTRANSFERASE 42 U/L (0-55)
[2020-04-15 06:45] VITALS: BP 128/70
[2020-04-15] MEDS: ASPIRIN 325 MG (5 GR) TABLET PO SCH (08:38)
[2020-04-15] MEDS: SENNA W/DOCUSATE (SENOKOT S) TABLET PO SCH ×2 (08:38→20:28)
[2020-04-15] MEDS: meTOproloL SUCCINATE 50 MG (TOPROL XL) TAB PO SCH (08:39)
[2020-04-15] MEDS: DOCUSATE SODIUM 100 MG (COLACE) CAP PO SCH ×2 (08:39→20:28)
[2020-04-15] MEDS: polyethylene glycoL POWDER 17 GM (MIRALAX) PACK PO SCH ×2 (08:39→20:28)
[2020-04-15] MEDS: TAMSULOSIN 0.4 MG (FLOMAX) CAP PO SCH ×2 (08:39→20:20)
[2020-04-15] MEDS: TRIM/SULFAMETH 160/800 (SEPTRA DS) TAB PO SCH ×2 (08:39→16:52)
[2020-04-15] MEDS: WITCH HAZEL(TUCKS) 40 EA JAR TOP SCH ×4 (08:40→20:21)
--- NOTE | 2020-04-15 09:30 | Progress Note - Urology ---
Progress Note-Urology Progress Notes/Assess & Plan Progress/Assessment & Plan TOV TODAY Final Diagnosis URINE RETENTION TIFFANIE WOMACK MD Apr 15, 2020 09:30
--- NOTE | 2020-04-15 10:11 | Physical Therapy Daily Note ---
PT Daily Note-Current Subjective Patient in bed pre tx, agrees to PT, has no complaints of pain. Will be co- treating with OT due to poor patient mobility, strength, endurance, left hemiparesis, the need to coordinate UE and LE during activity, decrease risk of falls. Appearance Patient in recliner post tx with nurse call, phone, tray, all needs met. Mental Status Patient Orientation: Person, Place, Situation Attachments: Pickett Catheter Transfers SCALE: Activities may be completed with or without assistive devices. 8-Oqxiychorn-ghqpzit completes the activity by him/herself with no assistance from a helper. 5-Set-up or Clean-up Assistance-helper sets up or cleans up; patient completes activity. [place] assists only prior to or following the activity. 4-Supervision or Touching Assistance-helper provides verbal cues and/or touching/steadying and/or contact guard assistance as patient completes activity. Assistance may be provided throughout the activity or intermittently. 3-Partial/Moderate Assistance-helper does LESS THAN HALF the effort. [place] lifts, holds or supports trunk or limbs, but provides less than half the effort. 2-Substantial/Maximal Assistance-helper does MORE THAN HALF the effort. [place] lifts or holds trunk or limbs and provides more than half the effort. 8-Cfccgayov-itofwm does ALL the effort. Patient does none of the effort to complete the activity. Or, the assistance of 2 or more helpers is required for the patient to complete the activity. If activity was not attempted, code reason: 7-Patient Refused. 9-Not Applicable-not attempted and the patient did not perform the activity before the current illness, exacerbation or injury. 10-Not Attempted due to Environmental Limitations-(lack of equipment, weather restraints, etc.). 88-Not Attempted due to Medical Conditions or Safety Concerns. Roll Left & Right (QC): 2 Lying to Sitting/Side of Bed(Q: 2 Sit to Stand (QC): 3 Chair/Amr-qx-Klcvh Xfer(QC): 3 mod assist for sit to stand and stand pivot transfer. Patient practiced rolling toward right side and sitting up. Stand pivot transfer to , propel WC to therapy gym and to parallel bars, ambulated, stood (3-4 min in parallel bars), propelled WC back to room and stand pivot to recliner. Gait Training Distance: 6'x3 Gait Assistive Device: Parallel Bars mod to max assist, needs assist advancing his left leg Wheelchair Training Does the Pt Use a Wheelchair?: Yes Wheel 50 ft with 2 turns (QC): 3 Wheel 150 ft (QC): 3 Type of Wheelchair: Manual Treatments bed mobility and transfers, ambulation, standing, WC mobility. PT performed bed mobility and rolling training, transfers, ambulation, WC mobility, OT performed UE positioning and safety training, during activity, assist with ambulation. Assessment Current Status: Poor Progress no change in mobility, impulsive, has trouble following directions PT Short Term Goals Short Term Goals Time Frame: Apr 04, 2020 Roll Left & Right: 3 Sit to lyin Lying to sitting on side of be: 3 Sit to stand: 3 Chair/hpd-hu-zwegz transfer: 2 PT Long-Term Goals Sustainability Purchasing Agent Goals PT Sustainability Purchasing Agent Goals Time Frame: Apr 18, 2020 Roll Left & Right (QC): 3 (Pablo) Sit to Lying (QC): 3 (Pablo) Lying-Sitting on Side/Bed(QC): 3 (Pablo) Sit to Stand (QC): 3 (Pablo) Chair/Ule-oz-Wyusz Xfer(QC): 3 (Pablo) Toilet Transfer (QC): 3 (Pablo) Car Transfer (QC): 3 (mod A) Does the Patient Walk: No and Walking Goal NOT indicated Walk 10 feet (QC): 88 Walk 50ft with 2 Turns (QC): 88 Walk 150 ft (QC): 88 Walking 10ft on Uneven Surface: 88 1 Step (curb) (QC): 88 4 Steps (QC): 88 12 Steps (QC): 88 Picking up an Object (QC): 88 Does the Pt use WC or Scooter?: Yes Wheel 50 feet with 2 turns (QC: 3 (Pablo) Type: Manual Wheel 150 feet: 3 (Pablo) Type: Manual PT Plan Problem List Problem List: Activity Tolerance, Functional Strength, Safety, Balance, Gait, Transfer, Bed Mobility, ROM Treatment/Plan Treatment Plan: Continue Plan of Care Treatment Plan: Bed Mobility, Education, Functional Activity [place], Functional Strength, Group Therapy, Gait, Safety, Therapeutic Exercise, Transfers Treatment Duration: Apr 18, 2020 Frequency: At least 5 of 7 days/Wk (IRF) Estimated Hrs Per Day: 1.5 hours per day Patient and/or Family Agrees t: Yes Safety Risks/Education Patient Education: Gait Training, Transfer Techniques, Correct Positioning, W/C Management, Safety Issues Teaching Recipient: Patient Teaching Methods: Demonstration, Discussion Response to Teaching: Reinforcement Needed Time/GCodes Time In: 0800 Time Out: 0845 Total Billed Treatment Time: 45 Total Billed Treatment 1 visit FA 45' co-treated with OT for 45 min MARK RYAN PT Apr 15, 2020 10:11
[2020-04-15] MEDS: PATCH REMOVAL TP SCH (11:16)
--- NOTE | 2020-04-15 11:51 | Physical Therapy Daily Note ---
PT Daily Note-Current Subjective Patient in bed pre tx, agrees to PT, no complaints of pain. Patient states he just got back into bed with nursing and doesn't want to get back into the chair at this time. Appearance Patient in bed post tx with nurse call, phone, tray, all needs met. Mental Status Patient Orientation: Person, Place, Situation Attachments: Pickett Catheter Transfers SCALE: Activities may be completed with or without assistive devices. 8-Qdasjgjvdo-ojnqyad completes the activity by him/herself with no assistance from a helper. 5-Set-up or Clean-up Assistance-helper sets up or cleans up; patient completes activity. [place] assists only prior to or following the activity. 4-Supervision or Touching Assistance-helper provides verbal cues and/or touching/steadying and/or contact guard assistance as patient completes activity. Assistance may be provided throughout the activity or intermittently. 3-Partial/Moderate Assistance-helper does LESS THAN HALF the effort. [place] lif ts, holds or supports trunk or limbs, but provides less than half the effort. 2-Substantial/Maximal Assistance-helper does MORE THAN HALF the effort. [place] lifts or holds trunk or limbs and provides more than half the effort. 6-Sqqnaowaq-rlsplf does ALL the effort. Patient does none of the effort to complete the activity. Or, the assistance of 2 or more helpers is required for the patient to complete the activity. If activity was not attempted, code reason: 7-Patient Refused. 9-Not Applicable-not attempted and the patient did not perform the activity before the current illness, exacerbation or injury. 10-Not Attempted due to Environmental Limitations-(lack of equipment, weather restraints, etc.). 88-Not Attempted due to Medical Conditions or Safety Concerns. Exercises Supine Ex: Ankle pumps, Quad Set, Glut sets, Heel Slides, Short Arc Quads, S traight leg raise, Hip abd/add Supine Reps: 20 (2 sets RLE) LLE stretching/ROM all planes, patient is maintaining neutral dorsiflexion Treatments LE exercise and stretching Assessment Current Status: Poor Progress no change in mobility PT Short Term Goals Short Term Goals Time Frame: Apr 04, 2020 Roll Left & Right: 3 Sit to lyin Lying to sitting on side of be: 3 Sit to stand: 3 Chair/zet-vi-samzt transfer: 2 PT Fpc Goals Fpc Goals PT Fpc Goals Time Frame: Apr 18, 2020 Roll Left & Right (QC): 3 (Pablo) Sit to Lying (QC): 3 (Pablo) Lying-Sitting on Side/Bed(QC): 3 (Pablo) Sit to Stand (QC): 3 (Pablo) Chair/Zku-ds-Nrzum Xfer(QC): 3 (Pablo) Toilet Transfer (QC): 3 (Pablo) Car Transfer (QC): 3 (mod A) Does the Patient Walk: No and Walking Goal NOT indicated Walk 10 feet (QC): 88 Walk 50ft with 2 Turns (QC): 88 Walk 150 ft (QC): 88 Walking 10ft on Uneven Surface: 88 1 Step (curb) (QC): 88 4 Steps (QC): 88 12 Steps (QC): 88 Picking up an Object (QC): 88 Does the Pt use WC or Scooter?: Yes Wheel 50 feet with 2 turns (QC: 3 (Pablo) Type: Manual Wheel 150 feet: 3 (Pablo) Type: Manual PT Plan Problem List Problem List: Activity Tolerance, Functional Strength, Safety, Balance, Gait, Transfer, Bed Mobility, ROM Treatment/Plan Treatment Plan: Continue Plan of Care Treatment Plan: Bed Mobility, Education, Functional Activity [place], Functional Strength, Group Therapy, Gait, Safety, Therapeutic Exercise, Transfers Treatment Duration: Apr 18, 2020 Frequency: At least 5 of 7 days/Wk (IRF) Estimated Hrs Per Day: 1.5 hours per day Patient and/or Family Agrees t: Yes Safety Risks/Education Patient Education: Correct Positioning, Safety Issues Teaching Recipient: Patient Teaching Methods: Demonstration, Discussion Response to Teaching: Reinforcement Needed Time/GCodes Time In: 1120 Time Out: 1150 Total Billed Treatment Time: 30 Total Billed Treatment 1 visit EX 30' MARK RYAN PT Apr 15, 2020 11:51
--- NOTE | 2020-04-15 12:56 | Occupational Ther Daily Note ---
OT Current Status-Daily Note Subjective Pt alert, lying in bed. Pt agrees to therapy. No c/o pain at this time. Mental Status/Objective Patient Orientation: Person, Place, Time, Situation Attachments: Pickett Catheter ADL-Treatment After set up, pt able to eat meal by self. Pt able to roll self toward L side and CAIN placed bed [place]. Assistance to cleanse after toileting. Assist x2 to complete lower body dressing in supine. OT/PT co-treat ([id number]), skills of 2 clinicians required for neuromuscular retraining, strategize functional transfers and mobility. PT working on transfers, standing, w/c mobility and ambulation. OT working on functional transfers, ADLs and L UE during mobility/ambulation. Pt requires cues to remember sequence of rolling toward R side then pushing up to sit, max A. Max A x 1 for transferring with PT and OT directing pt's hips and L UE. Increased tone noted throughout L UE, no intentional movement noted. See PT notes for ambulation and w/c mobility. After session, pt sitting in recliner. Call light/phone in reach. All needs met in room. Therapy Code Descriptions/Definitions Functional [place] Measure: 0=Not Assessed/NA 4=Minimal Assistance 1=Total Assistance 5=Supervision or Setup 2=Maximal Assistance 6=Modified [place] 3=Moderate Assistance 7=Complete IndependenceSCALE: Activities may be completed with or without assistive devices. 8-Nalomdrqrh-esegvpm completes the activity by him/herself with no assistance from a helper. 5-Set-up or Clean-up Assistance-helper sets up or cleans up; patient completes activity. [place] assists only prior to or following the activity. 4-Supervision or Touching Assistance-helper provides verbal cues and/or touching/steadying and/or contact guard assistance as patient completes activity. Assistance may be provided throughout the activity or intermittently. 3-Partial/Moderate Assistance-helper does LESS THAN HALF the effort. [place] lifts, holds or supports trunk or limbs, but provides less than half the effort. 2-Substantial/Maximal Assistance-helper does MORE THAN HALF the effort. [place] lifts or holds trunk or limbs and provides more than half the effort. 5-Vreybawff-okplpr does ALL the effort. Patient does none of the effort to complete the activity. Or, the assistance of 2 or more helpers is required for the patient to complete the activity. If activity was not attempted, code reason: 7-Patient Refused. 9-Not Applicable-not attempted and the patient did not perform the activity before the current illness, exacerbation or injury. 10-Not Attempted due to Environmental Limitations-(lack of equipment, weather restraints, etc.). 88-Not Attempted due to Medical Conditions or Safety Concerns. Eating (QC): 5 Upper Body Dressing (QC): 2 (Modified dressing technique by placing inside of button up shirt up and shirt collar toward stomach. Placing L UE into corresponding sleeve then R UE and parts puller head.) Lower Body Dressing (QC): 1 On/Off Footwear: 2 OT Short Term Goals Short Term Goals Time Frame: Apr 11, 2020 Eatin Oral hygiene: 3 Toileting hygiene: 3 Shower/bathe self: 2 Upper body dressin Lower body dressin Putting on/taking off footwear: 2 OT Assessment Nurse Goals Care Home Goals Time Frame: Apr 25, 2020 Eating (QC): 4 Oral Hygiene (QC): 4 Toileting Hygiene (QC): 3 Shower/Bathe Self (QC): 3 Upper Body Dressing (QC): 4 Lower Body Dressing (QC): 4 On/Off Footwear (QC): 4 Additional Goals: 1-Demonstrate ADL Tasks, 2-Verbalize Understanding, 3- ImproveStrength/[place] 1=Demonstrate adherence to instructed precautions during ADL tasks. 2=Patient will verbalize/demonstrate understanding of assistive devices/modifications for ADL. 3=Patient will improve strength/tolerance for activity to enable patient to perform ADL's. OT Education/Plan Problem List/Assessment Assessment: Decreased Activ Tolerance, Dependent Transfers, Impaired Bed Mobility, Impaired Cognition, Impaired Self-Care Skills, Restricted Funct UE ROM, Visual-Perceptual Deficit Discharge Recommendations Plan/Recommendations: Continue POC Treatment Plan/Plan of Care Patient would benefit from OT for education, treatment and training to promote independence in ADL's, mobility, safety and/or upper extremity function for ADL's. Plan of Care: ADL Retraining, Functional Mobility, UE Funct Exercise/Act, UE Neuromus Re-Ed/Coord, Visual/Perceptual Retrain Treatment Duration: Apr 25, 2020 Frequency: At least 5 of 7 days/Wk (IRF) Estimated Hrs Per Day: 1.5 hours per day Agreement: Yes Rehab Potential: Good Time/GCodes Start Time: 07:30 Stop Time: 08:45 Total Time Billed (hr/min): 75 Billed Treatment Time 1 visit-ADL 2 (30 min) NM 3 (45 min) co-treat with PT 45 min ([id number]) individual 30 min ([id number]) JOSIAH ESCALANTE Apr 15, 2020 12:56
--- NOTE | 2020-04-15 15:50 | Speech Therapy Daily Note ---
Speech Daily Progress Note Subjective Date Seen by Provider: Apr 15, 2020 Time Seen by Provider: 00:30 Patient was resting in his bed when I entered his room. Patient appeared to be in a good mood. was present briefly, however she had errands to run and left shortly. Objective Patient completed a series of safety awareness cards with 100% accuracy given no cues. Assessment Assessment Current Status: Excellent Progress Treatment Plan Continue Plan of Care Speech Short Term Goals Short Term Goals Short Term Goals 1) Patient will complete memory tasks related to his daily needs at 90% or greater with minimal cues. 2) Patient will complete safety awareness tasks related to his daily needs at 90% or greater with minimal cues. 3) Patient will complete problem solving tasks related to his daily needs at 90% or greater with minimal cues. 4) Patient will tolerate least restrictive diet level without s/s of aspiration at 90% or greater. 5) Patient/caregiver will utilize compensatory strategies as trained at 90% or greater with minimal cues. Speech Soda Room Operator Goals Soda Room Operator Goals Patient will improve cognitive-communication necessary for safety and daily living tasks with minimal assist. Patient will maintain adequate nutrition/hydration via safe effective swallow function. Speech-Plan Patient/Family Goals Patient/Family Goals: Patient plans on returning home where he lives with his . Treatment Plan Speech Therapy Treatment Plan: Continue Plan of Care Treatment Duration: Apr 12, 2020 Frequency: 5 times per week Estimated Hrs Per Day: .5 hour per day Rehab Potential: Good Barriers to Learning: Patient's recent CVA, left sided impairment Pt/Family Agrees to Plan: Yes Safety Risks/Education Teaching Recipient: Patient, Significant Other Teaching Methods: Demonstration, Discussion Response to Teaching: Verbalize Understanding, Return Demonstration Education Topics Provided: Continued safety and trying to turn to listeners on the left side Time Speech Therapy Time In: 13:30 Speech Therapy Time Out: 14:00 Total Billed Time: 30 Billed Treatment Time 1, BRIAN Ahuja Apr 15, 2020 15:50
--- NOTE | 2020-04-15 16:08 | Progress Note ---
BERTA CHAVES MED STUDENT 04/15/20 1608: Progress Note Connor Wei is a 50 yo M who suffered a right sided CVA on 03/24 with loss of function of his left arm and leg. He has also experienced a catheter E. Coli UTI for which he is taking Bactrim. The patient had neck and back pain earlier in his stay but says those have resolved. Connor says prior to his accident he lived alone and had a normal level of function and feels he can practice managing things with his right hand. He wants to improve his walking ability and has been practicing getting up and walking with nearby support. He has had 1-2 bowel movements each day. PE: cardiac: RRR respiratory: lungs clear to auscultation bilaterally neuro: left facial droop, 5/5 right hand merchandising lead strength. no movement of the LUE. KIARA GATICA DO 04/15/202057: Supervisory-Addendum Brief Verification & Attestation Participated in pt care: history, MDM, physical Personally performed: exam, history, MDM, supervision of care Care discussed with: Medical Student Procedures: n/a Results interpretation: Verified all documentation Verification and Attestation of Medical Student E/M Service A medical student performed and documented this service in my presence. I reviewed and verified all information documented by the medical student and made modifications to such information, when appropriate. I personally performed the physical exam and medical decision making. Kiara Gatica, Apr 15, 2020,20:58 BERTA CHAVES MED STUDENT Apr 15, 2020 16:08 KIARA GATICA DO Apr 15, 2020 20:58
[2020-04-15] MEDS: ENOXAPARIN 40 MG/0.4 ML (LOVENOX) SYR SC SCH (16:53)
[2020-04-15 19:10] VITALS: BP 126/64
[2020-04-15] MEDS: BACLOFEN 10 MG (LIORESAL) TAB PO SCH (20:20)
[2020-04-15] MEDS: SERTRALINE 50 MG (ZOLOFT) TABLET PO SCH (20:20)
--- NOTE | 2020-04-15 20:44 | NUR ---
Piyush was dc'd at [address] Drake, w/o problems, Pt nuria well. Provided teaching, new urinal, call lt in hand.
[2020-04-16 05:22] VITALS: BP 136/80
[2020-04-16] MEDS: BETHANECHOL 25 MG (URECHOLINE) TAB PO SCH ×4 (06:22→20:26)
[2020-04-16] MEDS: BACLOFEN 10 MG (LIORESAL) TAB PO PRN ×2 (06:23→12:11)
--- NOTE | 2020-04-16 08:52 | PM&R Progress Note ---
Subjective HPI/CC On Admission Date Seen by Provider: Apr 16, 2020 Time Seen by Provider: 09:45 Subjective/Events-last exam 04/16/20 Preston has been discontinued and voiding well Bladder scan and In and Out Caths if needed Left sided weakness remains Very motivated appears to be depressed currently today Baclofen in the morning really helps him so will continue that Dr Drake placed him on Bactrim for UTI e coli Labs noted Mehnaz lift required Preston cath replaced and will await Urology plan Slept well Checked meds and labs Conferred with RN Reviewed therapy notes Review of Systems General: Fatigue, Malaise Neurological: Weakness Objective Exam Vital Signs Vital Signs Date Time Temp Pulse Resp B/P (MAP) Pulse Ox O2 Delivery O2 Flow Rate FiO2 04/16/20 09:00 Room Air 04/16/20 08:57 77 120/60 (80) 04/16/20 05:22 36.6 20 95 Capillary Refill : Less Than 3 Seconds General Appearance: No Apparent Distress, WD/WN, Chronically ill HEENT: PERRL/EOMI, Normal ENT Inspection, Pharynx Normal Neck: Full Range of Motion, Normal Inspection, Non Tender, Supple, Carotid Bruit Respiratory: Chest Non Tender, Lungs Clear, Normal Breath Sounds, No Accessory Muscle Use, No Respiratory Distress Cardiovascular: Regular Rate, Rhythm, No Edema, No Gallop, No JVD, No Murmur, Normal Peripheral Pulses Gastrointestinal: Normal Bowel Sounds, No Organomegaly, No Pulsatile Mass, Non Tender, Soft Back: Normal Inspection, No CVA Tenderness, No Vertebral Tenderness Extremity: Normal Capillary Refill, Normal Inspection, Normal Range of Motion (except left side), Non Tender, No Calf Tenderness, No Pedal Edema Neurologic/Psychiatric: Alert, Oriented x3, No Motor/Sensory Deficits, Normal Mood/Affect, Depressed Affect, Facial Droop (left), Motor Weakness (left sided paresis 0/5 flaccid) Skin: Normal Color, Warm/Dry Lymphatic: No Adenopathy Results/Procedures Lab Patient resulted labs reviewed. FIM Transfers Therapy Code Descriptions/Definitions Functional [place] Measure: 0=Not Assessed/NA 4=Minimal Assistance 1=Total Assistance 5=Supervision or Setup 2=Maximal Assistance 6=Modified [place] 3=Moderate Assistance 7=Complete IndependenceSCALE: Activities may be completed with or without assistive devices. 5-Vzuvmchejh-hjnocyt completes the activity by him/herself with no assistance from a helper. 5-Set-up or Clean-up Assistance-helper sets up or cleans up; patient completes activity. [place] assists only prior to or following the activity. 4-Supervision or Touching Assistance-helper provides verbal cues and/or touching/steadying and/or contact guard assistance as patient completes activity. Assistance may be provided throughout the activity or intermittently. 3-Partial/Moderate Assistance-helper does LESS THAN HALF the effort. [place] lifts, holds or supports trunk or limbs, but provides less than half the effort. 2-Substantial/Maximal Assistance-helper does MORE THAN HALF the effort. [place] lifts or holds trunk or limbs and provides more than half the effort. 3-Jwnsiogyh-fvjldq does ALL the effort. Patient does none of the effort to complete the activity. Or, the assistance of 2 or more helpers is required for the patient to complete the activity. If activity was not attempted, code reason: 7-Patient Refused. 9-Not Applicable-not attempted and the patient did not perform the activity before the current illness, exacerbation or injury. 10-Not Attempted due to Environmental Limitations-(lack of equipment, weather restraints, etc.). 88-Not Attempted due to Medical Conditions or Safety Concerns. Roll Left to Right (QC): 2 Sit to Lying (QC): 2 Sit to Stand (QC): 3 Chair/Wem-ge-Cvpiy Xfer(QC): 3 Car Transfer (QC): 1 Gait Training Does the Patient Walk?: Yes Distance: 6'x3 Walk 10 feet (QC): 88 Walk 50 ft with 2 Turns(QC): 88 Walk 150 ft (QC): 88 Walking 10ft/uneven surface-QC: 88 Gait Persons Needed: 2 Gait Assistive Device: Parallel Bars Wheelchair Training Does the Pt Use a Wheelchair?: Yes Distance: 150' Wheel 50 ft with 2 turns (QC): 3 Wheel 150 ft (QC): 3 Type of Wheelchair: Manual Stair Training 1 Step (curb) (QC): 88 4 Steps (QC): 88 12 Steps (QC): 88 Balance Picking up an Object (QC): 88 ADL-Treatment Eating (QC): 5 Oral Hygiene (QC): 4 Bathing Location: L Arm, Chest, Abdomen, Perineal Area Shower/Bathe Self (QC): 1 Upper Body Dressing (QC): 2 (Modified dressing technique by placing inside of button up shirt up and shirt collar toward stomach. Placing L UE into corresponding sleeve then R UE and thread puller head.) Lower Body Dressing (QC): 1 On/Off Footwear (QC): 2 Toileting Hygiene (QC): 1 Toilet Transfer (QC): 2 Assessment/Plan Assessment and Plan Assess & Plan/Chief Complaint Assessment: Catastrophic CVA with left sided flaccidity Left facial droop COVID-19 antibody + Bipolar disorder Autism spectrum Urinary retention Preston cath in place consulted Dr Drake Plan: IRF protocol Dr Drake consultation Monitor bowel function Fall risk CBD oil Mehnaz lift Voiding much better on his own Maintain bladder meds Bowel regimen Decreasing pain medication 04/01/20: Voltaren gel for back pain Lortab for pain Mehnaz lift completely no sit-2-stand ability Flaccid left side continues 04/02/20: Patient went to father's today Continue Voltaren gel for back pain Sit to stand no longer an option needs Mehnaz lift 04/03/20: Bowels moved 2 days ago Laxatives ordered Discontinue the Preston catheter and Dr. Matias will monitor closely for retention Completed Augmentin Baclofen and pain medication taken on a real regular basis prone for dependency and addiction potential 04/04/20: Urology management of urinary retention since catheter removed Continue pain management but addiction potential noted Air mattress to prevent skin breakdown Laxatives due to constipation now 04/05/20: Bowels still not moving, supp and Fleets and SSE will be given Decrease pain meds to Q6hrs due to overuse and narcotic bowel noted complications Addiction potential noted Preston cath replaced and Flomax and Urecholine maintained now 04/06/20: Weaned Lortab Baclofen prn is working well BM regimen to continue Preston cath 04/07/20: Baclofen 10mg at night Maintain BM regimen Likely preston cath will be required again 04/08/20: Preston reinserted Labs stable BM regimen 04/09/20: Improvement in spontaneous urination Maintain Flomax and Urecholine Monitor closely 04/10/20: Disposition pending Continue aggressive therapy Cystoscopy Bladder meds 04/11/20: Had Cysto today by Urology Urinalysis is pending Pain pill on rare occasions 04/12/20: Maintain Baclofen Dr. Drake to manage Ecoli UTI Maintain Mehnaz lift In/Out catheter prn 04/13/20: UTI Tx Bactrim Monitor closely 04/14/20: UTI Tx Check labs in am 04/15/20: Radha helping with Hemorrhoids Labs reviewed Baclofen working well Last pain pill was 4 days ago (1) Acute right MCA stroke Status: Acute (2) Facial droop due to cerebrovascular accident (CVA) (3) Bipolar disorder (4) Autism spectrum (5) Urinary retention (6) Preston catheter in place (7) Coronavirus infection, unspecified Status: Chronic (8) Left-sided neglect Status: Acute (9) Dysphasia due to recent cerebrovascular accident (CVA) Status: Acute AIDE GATICA DO Apr 16, 2020 08:52
[2020-04-16 08:57] VITALS: BP 120/60
[2020-04-16] MEDS: ASPIRIN 325 MG (5 GR) TABLET PO SCH (08:58)
[2020-04-16] MEDS: TRIM/SULFAMETH 160/800 (SEPTRA DS) TAB PO SCH ×2 (08:58→17:02)
[2020-04-16] MEDS: DOCUSATE SODIUM 100 MG (COLACE) CAP PO SCH ×2 (08:58→20:28)
[2020-04-16] MEDS: meTOproloL SUCCINATE 50 MG (TOPROL XL) TAB PO SCH (08:58)
[2020-04-16] MEDS: SENNA W/DOCUSATE (SENOKOT S) TABLET PO SCH ×2 (08:58→20:29)
[2020-04-16] MEDS: TAMSULOSIN 0.4 MG (FLOMAX) CAP PO SCH ×2 (08:58→20:26)
[2020-04-16] MEDS: WITCH HAZEL(TUCKS) 40 EA JAR TOP SCH ×4 (08:59→21:00)
--- NOTE | 2020-04-16 08:59 | Occupational Ther Daily Note ---
OT Current Status-Daily Note Subjective Pt alert, lying in bed. Pt agrees to therapy. No c/o pain. Mental Status/Objective Patient Orientation: Person, Place, Time, Situation ADL-Treatment OT/PT co-treat ([id number]), skills of 2 clinicians required for skilled instructions and strategies/modifications during mobility, ADLs, transfers and neuromuscular retraining due to pt's decreased body awareness, problem solving and safety. Pt able to place urinal and manipulate clothing in supine, assist to empty. Pt agrees to shower. Mod A for supine to EOB. Transfer to L side, SPT, assist x1 for transfer though 2nd person assist with transfer for safety due to pt's impulsivity and decreased body awareness. Pt transferred to shower chair with cutout to transport to large shower room. Pt required instruction to wash all areas that pt could reach safely, assist for lower legs/feet and buttocks. Max A for upper body dressing. Assist x2 for lower body dressing. Therapy Code Descriptions/Definitions Functional [place] Measure: 0=Not Assessed/NA 4=Minimal Assistance 1=Total Assistance 5=Supervision or Setup 2=Maximal Assistance 6=Modified [place] 3=Moderate Assistance 7=Complete IndependenceSCALE: Activities may be completed with or without assistive devices. 2-Gazuqjkgea-npzuchl completes the activity by him/herself with no assistance from a helper. 5-Set-up or Clean-up Assistance-helper sets up or cleans up; patient completes activity. [place] assists only prior to or following the activity. 4-Supervision or Touching Assistance-helper provides verbal cues and/or touch ing/steadying and/or contact guard assistance as patient completes activity. Assistance may be provided throughout the activity or intermittently. 3-Partial/Moderate Assistance-helper does LESS THAN HALF the effort. [place] lifts, holds or supports trunk or limbs, but provides less than half the effort. 2-Substantial/Maximal Assistance-helper does MORE THAN HALF the effort. [place] lifts or holds trunk or limbs and provides more than half the effort. 6-Zbadpncwr-oiwsfq does ALL the effort. Patient does none of the effort to complete the activity. Or, the assistance of 2 or more helpers is required for the patient to complete the activity. If activity was not attempted, code reason: 7-Patient Refused. 9-Not Applicable-not attempted and the patient did not perform the activity before the current illness, exacerbation or injury. 10-Not Attempted due to Environmental Limitations-(lack of equipment, weather restraints, etc.). 88-Not Attempted due to Medical Conditions or Safety Concerns. Bathing Location: L Arm, L Upper Leg, R Upper Leg, Chest, Abdomen, Perineal Area Shower/Bathe Self (QC): 2 Upper Body Dressing (QC): 2 Lower Body Dressing (QC): 1 On/Off Footwear: 2 Other Treatment PT working on transfers, mobility, and bed mobility. OT working on ADLs, functional transfers and bed mobility. Pt progressing with sitting balance and SPT toward L side. Pt requires visual directions prior to learning new skills. Pt continues to be impulsive and requires verbal/physical cues for safety. See PT notes for bed mobility and transfers. After session, pt lying in bed with call light/phone in reach. All needs met in room. OT Short Term Goals Short Term Goals Time Frame: Apr 11, 2020 Eatin Oral hygiene: 3 Toileting hygiene: 3 Shower/bathe self: 2 Upper body dressin Lower body dressin Putting on/taking off footwear: 2 OT Model And Dye Person Goals Detention Goals Time Frame: Apr 25, 2020 Eating (QC): 4 Oral Hygiene (QC): 4 Toileting Hygiene (QC): 3 Shower/Bathe Self (QC): 3 Upper Body Dressing (QC): 4 Lower Body Dressing (QC): 4 On/Off Footwear (QC): 4 Additional Goals: 1-Demonstrate ADL Tasks, 2-Verbalize Understanding, 3- ImproveStrength/[place] 1=Demonstrate adherence to instructed precautions during ADL tasks. 2=Patient will verbalize/demonstrate understanding of assistive devices/modifications for ADL. 3=Patient will improve strength/tolerance for activity to enable patient to perform ADL's. OT Education/Plan Problem List/Assessment Assessment: Decreased Activ Tolerance, Decreased Safety Aware, Decreased UE Strength, Dependent Transfers, Impaired Bed Mobility, Impaired Cognition, Impaired Coordination, Impaired Funct Balance, Impaired I ADL's, Impaired Self- Care Skills, Restricted Funct UE ROM, Visual-Perceptual Deficit (L neglect) Discharge Recommendations Plan/Recommendations: Continue POC Treatment Plan/Plan of Care Patient would benefit from OT for education, treatment and training to promote independence in ADL's, mobility, safety and/or upper extremity function for ADL's. Plan of Care: ADL Retraining, Functional Mobility, UE Funct Exercise/Act, UE Neuromus Re-Ed/Coord, Visual/Perceptual Retrain Treatment Duration: Apr 25, 2020 Frequency: At least 5 of 7 days/Wk (IRF) Estimated Hrs Per Day: 1.5 hours per day Agreement: Yes Rehab Potential: Good Time/GCodes Start Time: 07:30 Stop Time: 09:00 Total Time Billed (hr/min): 90 Billed Treatment Time 1 visit-ADL 3 (45 min) NM 3 (45 min) JOSIAH ESCALANTE Apr 16, 2020 08:59
--- NOTE | 2020-04-16 08:59 | Physical Therapy Daily Note ---
PT Daily Note-Current Subjective Patient in shower room with OT pre tx, agrees to PT, has no complaints of pain, will be co-treating with OT due to poor patient mobility, strength, endurance, sitting and standing balance, left hemiparesis, the need to coordinate UE and LE during activity. Appearance Patient in bed post tx with nurse call, phone, tray, all needs met. Mental Status Patient Orientation: Person, Place, Situation Transfers SCALE: Activities may be completed with or without assistive devices. 9-Fkkmjninma-brvsubx completes the activity by him/herself with no assistance from a helper. 5-Set-up or Clean-up Assistance-helper sets up or cleans up; patient completes activity. [place] assists only prior to or following the activity. 4-Supervision or Touching Assistance-helper provides verbal cues and/or touching/steadying and/or contact guard assistance as patient completes acti vity. Assistance may be provided throughout the activity or intermittently. 3-Partial/Moderate Assistance-helper does LESS THAN HALF the effort. [place] lifts, holds or supports trunk or limbs, but provides less than half the effort. 2-Substantial/Maximal Assistance-helper does MORE THAN HALF the effort. [place] lifts or holds trunk or limbs and provides more than half the effort. 0-Ddjsgvsuj-tyoplg does ALL the effort. Patient does none of the effort to complete the activity. Or, the assistance of 2 or more helpers is required for the patient to complete the activity. If activity was not attempted, code reason: 7-Patient Refused. 9-Not Applicable-not attempted and the patient did not perform the activity before the current illness, exacerbation or injury. 10-Not Attempted due to Environmental Limitations-(lack of equipment, weather restraints, etc.). 88-Not Attempted due to Medical Conditions or Safety Concerns. Roll Left & Right (QC): 3 Sit to Lying (QC): 2 Lying to Sitting/Side of Bed(Q: 2 Sit to Stand (QC): 3 Chair/Lkn-gc-Mjifc Xfer(QC): 3 In shower room patient stood a couple of times for dressing and finish bathing, WC to therapy gym 120' min assist, stand pivot to therapy table, practiced rolling and supine to sit, then sit to stand 3 sets of 10, stand pivot back to WC, propel to room 120', stand pivot to bed and lay down. Treatments PT performed standing during bathing and dressing, transfers, rolling and supine to sit, OT performed bathing and dressing UE positioning and safety during ac tivity, assist with bed mobility. Assessment Current Status: Poor Progress Patient has a very hard time following directions, often does the opposite of what is needed and so needs careful guarding PT Short Term Goals Short Term Goals Time Frame: Apr 04, 2020 Roll Left & Right: 3 Sit to lyin Lying to sitting on side of be: 3 Sit to stand: 3 Chair/ucs-yf-hnkld transfer: 2 PT Long-Term Goals Long-Term Goals PT Long-Term Goals Time Frame: Apr 18, 2020 Roll Left & Right (QC): 3 (Pablo) Sit to Lying (QC): 3 (Pablo) Lying-Sitting on Side/Bed(QC): 3 (Pablo) Sit to Stand (QC): 3 (Pablo) Chair/Gsx-qy-Eymzt Xfer(QC): 3 (Pablo) Toilet Transfer (QC): 3 (Pablo) Car Transfer (QC): 3 (mod A) Does the Patient Walk: No and Walking Goal NOT indicated Walk 10 feet (QC): 88 Walk 50ft with 2 Turns (QC): 88 Walk 150 ft (QC): 88 Walking 10ft on Uneven Surface: 88 1 Step (curb) (QC): 88 4 Steps (QC): 88 12 Steps (QC): 88 Picking up an Object (QC): 88 Does the Pt use WC or Scooter?: Yes Wheel 50 feet with 2 turns (QC: 3 (Pablo) Type: Manual Wheel 150 feet: 3 (Pablo) Type: Manual PT Plan Problem List Problem List: Activity Tolerance, Functional Strength, Safety, Balance, Gait, Transfer, Bed Mobility, ROM Treatment/Plan Treatment Plan: Continue Plan of Care Treatment Plan: Bed Mobility, Education, Functional Activity [place], Functional Strength, Group Therapy, Gait, Safety, Therapeutic Exercise, Transfers Treatment Duration: Apr 18, 2020 Frequency: At least 5 of 7 days/Wk (IRF) Estimated Hrs Per Day: 1.5 hours per day Patient and/or Family Agrees t: Yes Safety Risks/Education Patient Education: Transfer Techniques, Correct Positioning, W/C Management, Safety Issues Teaching Recipient: Patient Teaching Methods: Demonstration, Discussion Response to Teaching: Reinforcement Needed Time/GCodes Time In: 0800 Time Out: 0900 Total Billed Treatment Time: 60 Total Billed Treatment 1 visit FA 60' co-treated for the whole 60' MARK RYAN PT Apr 16, 2020 08:59
[2020-04-16] MEDS: polyethylene glycoL POWDER 17 GM (MIRALAX) PACK PO SCH ×2 (09:00→20:29)
[2020-04-16] MEDS: ACETAMINOPHEN 325 MG TABLET PO PRN (12:10)
[2020-04-16] MEDS: LIDOCAINE UROJET 2% GEL 10 ML PKG TOP PRN (12:50)
--- NOTE | 2020-04-16 13:21 | Physical Therapy Daily Note ---
PT Daily Note-Current Subjective Patient in bed pre tx, agrees to PT, no complaints of pain at rest. Appearance Patient in bed post tx with nurse call, phone, tray, laying on left side, in room. Mental Status Patient Orientation: Person, Place, Situation Transfers SCALE: Activities may be completed with or without assistive devices. 9-Lzxduxwenv-kmmyeoc completes the activity by him/herself with no assistance from a helper. 5-Set-up or Clean-up Assistance-helper sets up or cleans up; patient completes activity. [place] assists only prior to or following the activity. 4-Supervision or Touching Assistance-helper provides verbal cues and/or touching/steadying and/or contact guard assistance as patient completes activity. Assistance may be provided throughout the activity or intermittently. 3-Partial/Moderate Assistance-helper does LESS THAN HALF the effort. [place] lifts, holds or supports trunk or limbs, but provides less than half the effort. 2-Substantial/Maximal Assistance-helper does MORE THAN HALF the effort. [place] lifts or holds trunk or limbs and provides more than half the effort. 2-Uggzfbedw-ferzos does ALL the effort. Patient does none of the effort to complete the activity. Or, the assistance of 2 or more helpers is required for the patient to complete the activity. If activity was not attempted, code reason: 7-Patient Refused. 9-Not Applicable-not attempted and the patient did not perform the activity before the current illness, exacerbation or injury. 10-Not Attempted due to Environmental Limitations-(lack of equipment, weather restraints, etc.). 88-Not Attempted due to Medical Conditions or Safety Concerns. Exercises Supine Ex: Ankle pumps, Quad Set, Glut sets, Heel Slides, Short Arc Quads, Straight leg raise, Hip abd/add Supine Reps: 20 (RLE) LLE stretching in all planes, patient has increased muscle tone in left leg this afternoon, much improve after stretching. Treatments stretching, AROM Assessment Current Status: Poor Progress no change in mobility PT Short Term Goals Short Term Goals Time Frame: Apr 04, 2020 Roll Left & Right: 3 Sit to lyin Lying to sitting on side of be: 3 Sit to stand: 3 Chair/lon-ty-cnrkn transfer: 2 PT Data Systems Manager Goals Data Systems Manager Goals PT Data Systems Manager Goals Time Frame: Apr 18, 2020 Roll Left & Right (QC): 3 (Pablo) Sit to Lying (QC): 3 (Pablo) Lying-Sitting on Side/Bed(QC): 3 (Pablo) Sit to Stand (QC): 3 (Pablo) Chair/Uoj-eu-Pvxxj Xfer(QC): 3 (Pablo) Toilet Transfer (QC): 3 (Pablo) Car Transfer (QC): 3 (mod A) Does the Patient Walk: No and Walking Goal NOT indicated Walk 10 feet (QC): 88 Walk 50ft with 2 Turns (QC): 88 Walk 150 ft (QC): 88 Walking 10ft on Uneven Surface: 88 1 Step (curb) (QC): 88 4 Steps (QC): 88 12 Steps (QC): 88 Picking up an Object (QC): 88 Does the Pt use WC or Scooter?: Yes Wheel 50 feet with 2 turns (QC: 3 (Pablo) Type: Manual Wheel 150 feet: 3 (Pablo) Type: Manual PT Plan Problem List Problem List: Activity Tolerance, Functional Strength, Safety, Balance, Gait, Transfer, Bed Mobility, ROM Treatment/Plan Treatment Plan: Continue Plan of Care Treatment Plan: Bed Mobility, Education, Functional Activity [place], Functional Strength, Group Therapy, Gait, Safety, Therapeutic Exercise, Transfers Treatment Duration: Apr 18, 2020 Frequency: At least 5 of 7 days/Wk (IRF) Estimated Hrs Per Day: 1.5 hours per day Patient and/or Family Agrees t: Yes Safety Risks/Education Patient Education: Correct Positioning, Safety Issues Teaching Recipient: Patient Teaching Methods: Demonstration, Discussion Response to Teaching: Reinforcement Needed Time/GCodes Time In: 1300 Time Out: 1315 Total Billed Treatment Time: 15 Total Billed Treatment 1 visit EX MARK HEART PT Apr 16, 2020 13:21
--- NOTE | 2020-04-16 13:57 | Speech Therapy Daily Note ---
Speech Daily Progress Note Subjective Date Seen by Provider: Apr 16, 2020 Time Seen by Provider: 00:30 Patient was resting in his bed following lunch. His was at his side. Objective Patient completed a series of scategories questions with 85% accuracy given minimal cues. Assessment Assessment Current Status: Good Progress Treatment Plan Continue Plan of Care Speech Short Term Goals Short Term Goals Short Term Goals 1) Patient will complete memory tasks related to his daily needs at 90% or greater with minimal cues. 2) Patient will complete safety awareness tasks related to his daily needs at 90% or greater with minimal cues. 3) Patient will complete problem solving tasks related to his daily needs at 90% or greater with minimal cues. 4) Patient will tolerate least restrictive diet level without s/s of aspiration at 90% or greater. 5) Patient/caregiver will utilize compensatory strategies as trained at 90% or greater with minimal cues. Speech Hospitalist Physician Goals Halfway Goals Patient will improve cognitive-communication necessary for safety and daily living tasks with minimal assist. Patient will maintain adequate nutrition/hydration via safe effective swallow function. Speech-Plan Patient/Family Goals Patient/Family Goals: Patient plans on returning home where he lives with his . Treatment Plan Speech Therapy Treatment Plan: Continue Plan of Care Treatment Duration: Apr 12, 2020 Frequency: 5 times per week Estimated Hrs Per Day: .5 hour per day Rehab Potential: Good Barriers to Learning: Patient's recent CVA Pt/Family Agrees to Plan: Yes Safety Risks/Education Teaching Recipient: Patient, Significant Other Teaching Methods: Demonstration, Discussion Response to Teaching: Verbalize Understanding, Return Demonstration Education Topics Provided: Continued safety within his room and communication of his wants/needs Time Speech Therapy Time In: 12:45 Speech Therapy Time Out: 13:15 Total Billed Time: 30 Billed Treatment Time 1, BRIAN Ahuja Apr 16, 2020 13:57
[2020-04-16] MEDS: ENOXAPARIN 40 MG/0.4 ML (LOVENOX) SYR SC SCH (17:03)
[2020-04-16 18:30] VITALS: BP 124/70
[2020-04-16] MEDS: BACLOFEN 10 MG (LIORESAL) TAB PO SCH (20:27)
[2020-04-16] MEDS: SERTRALINE 50 MG (ZOLOFT) TABLET PO SCH (20:33)
[2020-04-17] MEDS: BACLOFEN 10 MG (LIORESAL) TAB PO PRN (06:29)
[2020-04-17] MEDS: BETHANECHOL 25 MG (URECHOLINE) TAB PO SCH ×4 (06:29→22:00)
[2020-04-17 06:44] VITALS: BP 133/81
--- NOTE | 2020-04-17 08:22 | PM&R Progress Note ---
Subjective HPI/CC On Admission Date Seen by Provider: Apr 17, 2020 Time Seen by Provider: 09:45 Subjective/Events-last exam 04/17/20: Patient required IN/OUT Catheter x2 Ongoing issue with Bladder retention Bowels not moving so will be given meds again Overall doing very well 04/16/20 Preston has been discontinued and voiding well Bladder scan and In and Out Caths if needed Left sided weakness remains Very motivated appears to be depressed currently today Baclofen in the morning really helps him so will continue that Dr Drake placed him on Bactrim for UTI e coli Labs noted Mehnaz lift required Preston cath replaced and will await Urology plan Slept well Checked meds and labs Conferred with RN Reviewed therapy notes Review of Systems General: Fatigue, Malaise Neurological: Weakness Objective Exam Vital Signs Vital Signs Date Time Temp Pulse Resp B/P (MAP) Pulse Ox O2 Delivery O2 Flow Rate FiO2 04/17/20 18:00 36.5 84 18 135/84 (101) 95 Room Air Capillary Refill : Less Than 3 Seconds General Appearance: No Apparent Distress, WD/WN, Chronically ill HEENT: PERRL/EOMI, Normal ENT Inspection, Pharynx Normal Neck: Full Range of Motion, Normal Inspection, Non Tender, Supple, Carotid Bruit Respiratory: Chest Non Tender, Lungs Clear, Normal Breath Sounds, No Accessory Muscle Use, No Respiratory Distress Cardiovascular: Regular Rate, Rhythm, No Edema, No Gallop, No JVD, No Murmur, Normal Peripheral Pulses Gastrointestinal: Normal Bowel Sounds, No Organomegaly, No Pulsatile Mass, Non Tender, Soft Back: Normal Inspection, No CVA Tenderness, No Vertebral Tenderness Extremity: Normal Capillary Refill, Normal Inspection, Normal Range of Motion (except left side), Non Tender, No Calf Tenderness, No Pedal Edema Neurologic/Psychiatric: Alert, Oriented x3, No Motor/Sensory Deficits, Normal Mood/Affect, Depressed Affect, Facial Droop (left), Motor Weakness (left sided paresis 0/5 flaccid) Skin: Normal Color, Warm/Dry Lymphatic: No Adenopathy Results/Procedures Lab Patient resulted labs reviewed. FIM Transfers Therapy Code Descriptions/Definitions Functional [place] Measure: 0=Not Assessed/NA 4=Minimal Assistance 1=Total Assistance 5=Supervision or Setup 2=Maximal Assistance 6=Modified Mclean 3=Moderate Assistance 7=Complete IndependenceSCALE: Activities may be completed with or without assistive devices. 4-Zdkubkhhij-abceezl completes the activity by him/herself with no assistance from a helper. 5-Set-up or Clean-up Assistance-helper sets up or cleans up; patient completes activity. [place] assists only prior to or following the activity. 4-Supervision or Touching Assistance-helper provides verbal cues and/or touching/steadying and/or contact guard assistance as patient completes activity. Assistance may be provided throughout the activity or intermittently. 3-Partial/Moderate Assistance-helper does LESS THAN HALF the effort. [place] lifts, holds or supports trunk or limbs, but provides less than half the effort. 2-Substantial/Maximal Assistance-helper does MORE THAN HALF the effort. [place] lifts or holds trunk or limbs and provides more than half the effort. 9-Njvqamyzh-nlukdx does ALL the effort. Patient does none of the effort to complete the activity. Or, the assistance of 2 or more helpers is required for the patient to complete the activity. If activity was not attempted, code reason: 7-Patient Refused. 9-Not Applicable-not attempted and the patient did not perform the activity before the current illness, exacerbation or injury. 10-Not Attempted due to Environmental Limitations-(lack of equipment, weather restraints, etc.). 88-Not Attempted due to Medical Conditions or Safety Concerns. Roll Left to Right (QC): 3 Sit to Lying (QC): 2 Sit to Stand (QC): 3 Chair/Qsc-xc-Thixr Xfer(QC): 3 Car Transfer (QC): 1 Gait Training Does the Patient Walk?: Yes Distance: 6'x3 Walk 10 feet (QC): 88 Walk 50 ft with 2 Turns(QC): 88 Walk 150 ft (QC): 88 Walking 10ft/uneven surface-QC: 88 Gait Persons Needed: 2 Gait Assistive Device: Parallel Bars Wheelchair Training Does the Pt Use a Wheelchair?: Yes Distance: 150' Wheel 50 ft with 2 turns (QC): 3 Wheel 150 ft (QC): 3 Type of Wheelchair: Manual Stair Training 1 Step (curb) (QC): 88 4 Steps (QC): 88 12 Steps (QC): 88 Balance Picking up an Object (QC): 88 ADL-Treatment Eating (QC): 5 Oral Hygiene (QC): 4 Bathing Location: L Arm, L Upper Leg, R Upper Leg, Chest, Abdomen, Perineal Area Shower/Bathe Self (QC): 2 Upper Body Dressing (QC): 2 Lower Body Dressing (QC): 1 On/Off Footwear (QC): 2 Toileting Hygiene (QC): 1 Toilet Transfer (QC): 2 Assessment/Plan Assessment and Plan Assess & Plan/Chief Complaint Assessment: Catastrophic CVA with left sided flaccidity Left facial droop COVID-19 antibody + Bipolar disorder Autism spectrum Urinary retention Preston cath in place consulted Dr Drake Plan: IRF protocol Dr Drake consultation Monitor bowel function Fall risk CBD oil Mehnaz lift Voiding much better on his own Maintain bladder meds Bowel regimen Decreasing pain medication 04/01/20: Voltaren gel for back pain Lortab for pain Mehnaz lift completely no sit-2-stand ability Flaccid left side continues 04/02/20: Patient went to father's today Continue Voltaren gel for back pain Sit to stand no longer an option needs Mehnaz lift 04/03/20: Bowels moved 2 days ago Laxatives ordered Discontinue the Preston catheter and Dr. Matias will monitor closely for retention Completed Augmentin Baclofen and pain medication taken on a real regular basis prone for dependency and addiction potential 04/04/20: Urology management of urinary retention since catheter removed Continue pain management but addiction potential noted Air mattress to prevent skin breakdown Laxatives due to constipation now 04/05/20: Bowels still not moving, supp and Fleets and SSE will be given Decrease pain meds to Q6hrs due to overuse and narcotic bowel noted complications Addiction potential noted Preston cath replaced and Flomax and Urecholine maintained now 04/06/20: Weaned Lortab Baclofen prn is working well BM regimen to continue Preston cath 04/07/20: Baclofen 10mg at night Maintain BM regimen Likely preston cath will be required again 04/08/20: Preston reinserted Labs stable BM regimen 04/09/20: Improvement in spontaneous urination Maintain Flomax and Urecholine Monitor closely 04/10/20: Disposition pending Continue aggressive therapy Cystoscopy Bladder meds 04/11/20: Had Cysto today by Urology Urinalysis is pending Pain pill on rare occasions 04/12/20: Maintain Baclofen Dr. Noelle to manage Ecoli UTI Maintain Mehnaz lift In/Out catheter prn 04/13/20: UTI Tx Bactrim Monitor closely 04/14/20: UTI Tx Check labs in am 04/15/20: Radha helping with Hemorrhoids Labs reviewed Baclofen working well Last pain pill was 4 days ago 04/17/20: Laxatives Bladder management Family education (1) Acute right MCA stroke Status: Acute (2) Facial droop due to cerebrovascular accident (CVA) (3) Bipolar disorder (4) Autism spectrum (5) Urinary retention (6) Preston catheter in place (7) Coronavirus infection, unspecified Status: Chronic (8) Left-sided neglect Status: Acute (9) Dysphasia due to recent cerebrovascular accident (CVA) Status: Acute AIDE GATICA DO Apr 17, 2020 08:21
[2020-04-17] MEDS: TRIM/SULFAMETH 160/800 (SEPTRA DS) TAB PO SCH (08:55)
[2020-04-17] MEDS: TAMSULOSIN 0.4 MG (FLOMAX) CAP PO SCH ×2 (08:55→22:01)
[2020-04-17] MEDS: DOCUSATE SODIUM 100 MG (COLACE) CAP PO SCH ×2 (08:56→22:01)
[2020-04-17] MEDS: ASPIRIN 325 MG (5 GR) TABLET PO SCH (08:56)
[2020-04-17] MEDS: meTOproloL SUCCINATE 50 MG (TOPROL XL) TAB PO SCH (08:56)
[2020-04-17] MEDS: SENNA W/DOCUSATE (SENOKOT S) TABLET PO SCH ×2 (08:56→22:00)
--- NOTE | 2020-04-17 08:56 | Physical Therapy Daily Note ---
PT Daily Note-Current Subjective Patient in bed pre tx, agrees to PT, voices no complaints of pain. Will be co- treating with OT due to poor patient mobility, strength, endurance, poor sitting and standing balance, the need to coordinate UE and LE during activity. Appearance Patient in bed post tx with nurse call, phone, tray, all needs met. Mental Status Patient Orientation: Person, Place, Situation Transfers SCALE: Activities may be completed with or without assistive devices. 1-Xcznmyiezh-wzegnaw completes the activity by him/herself with no assistance from a helper. 5-Set-up or Clean-up Assistance-helper sets up or cleans up; patient completes activity. [place] assists only prior to or following the activity. 4-Supervision or Touching Assistance-helper provides verbal cues and/or touching/steadying and/or contact guard assistance as patient completes activity. Assistance may be provided throughout the activity or intermittently. 3-Partial/Moderate Assistance-helper does LESS THAN HALF the effort. [place] lifts, holds or supports trunk or limbs, but provides less than half the effort. 2-Substantial/Maximal Assistance-helper does MORE THAN HALF the effort. [place] lifts or holds trunk or limbs and provides more than half the effort. 9-Vgcyfyetb-nudpkk does ALL the effort. Patient does none of the effort to complete the activity. Or, the assistance of 2 or more helpers is required for the patient to complete the activity. If activity was not attempted, code reason: 7-Patient Refused. 9-Not Applicable-not attempted and the patient did not perform the activity before the current illness, exacerbation or injury. 10-Not Attempted due to Environmental Limitations-(lack of equipment, weather restraints, etc.). 88-Not Attempted due to Medical Conditions or Safety Concerns. Roll Left & Right (QC): 2 Sit to Lying (QC): 2 Lying to Sitting/Side of Bed(Q: 2 Sit to Stand (QC): 3 Chair/Bvp-ug-Nvhmy Xfer(QC): 3 Gait Training Distance: 6'x3 Gait Persons Needed: 3 Gait Assistive Device: Parallel Bars mod assist, assist advancing his left leg Wheelchair Training Does the Pt Use a Wheelchair?: Yes Wheel 50 ft with 2 turns (QC): 3 Wheel 150 ft (QC): 3 Type of Wheelchair: Manual 150'x2 Exercises sit to buyer internship parallel bars from 2 sets of 10, standing balance activity throwing rings with right arm Treatments bed mobility and transfers, ambulation, WC mobility, balance training, functional strengthening Assessment Current Status: Poor Progress patient needs experienced help during transfers and general mobility due to impulsivity with movement and the need to be able to quickly assess safety due to this and be able to adjust guarding and assist in order to keep the patient from falling. PT Short Term Goals Short Term Goals Time Frame: Apr 04, 2020 Roll Left & Right: 3 Sit to lyin Lying to sitting on side of be: 3 Sit to stand: 3 Chair/cej-kb-ctmlq transfer: 2 PT Detention Goals Locomotive Crane Operator Helper Goals PT Locomotive Crane Operator Helper Goals Time Frame: Apr 18, 2020 Roll Left & Right (QC): 3 (Pablo) Sit to Lying (QC): 3 (Pablo) Lying-Sitting on Side/Bed(QC): 3 (Pablo) Sit to Stand (QC): 3 (Pablo) Chair/Fkm-uv-Zvvhb Xfer(QC): 3 (Pablo) Toilet Transfer (QC): 3 (aPblo) Car Transfer (QC): 3 (mod A) Does the Patient Walk: No and Walking Goal NOT indicated Walk 10 feet (QC): 88 Walk 50ft with 2 Turns (QC): 88 Walk 150 ft (QC): 88 Walking 10ft on Uneven Surface: 88 1 Step (curb) (QC): 88 4 Steps (QC): 88 12 Steps (QC): 88 Picking up an Object (QC): 88 Does the Pt use WC or Scooter?: Yes Wheel 50 feet with 2 turns (QC: 3 (Pablo) Type: Manual Wheel 150 feet: 3 (Pablo) Type: Manual PT Plan Problem List Problem List: Activity Tolerance, Functional Strength, Safety, Balance, Gait, Transfer, Bed Mobility, ROM Treatment/Plan Treatment Plan: Continue Plan of Care Treatment Plan: Bed Mobility, Education, Functional Activity [place], Functional Strength, Group Therapy, Gait, Safety, Therapeutic Exercise, Transfers Treatment Duration: Apr 18, 2020 Frequency: At least 5 of 7 days/Wk (IRF) Estimated Hrs Per Day: 1.5 hours per day Patient and/or Family Agrees t: Yes Safety Risks/Education Patient Education: Gait Training, Transfer Techniques, Correct Positioning, W/C Management, Safety Issues Teaching Recipient: Patient Teaching Methods: Demonstration, Discussion Response to Teaching: Reinforcement Needed Time/GCodes Time In: 0800 Time Out: 0900 Total Billed Treatment Time: 60 Total Billed Treatment 1 visit FA 60' co-treated for 60' MARK RYAN PT Apr 17, 2020 08:56
--- NOTE | 2020-04-17 09:01 | Occupational Ther Daily Note ---
OT Current Status-Daily Note Subjective Pt alert, lying in bed. Pt agrees to therapy. No c/o pain at this time. Increased tone noted in L UE. Mental Status/Objective Patient Orientation: Person, Place, Time, Situation ADL-Treatment Pt required assistance to position self in bed and set up for meal then pt able to use regular utensils to eat. Pt required assistance to manipulate pants over hips and don shoes. PROM and massage to L UE to decrease tone, reflexive tone noted in L UE only. Therapy Code Descriptions/Definitions Functional Bim Measure: 0=Not Assessed/NA 4=Minimal Assistance 1=Total Assistance 5=Supervision or Setup 2=Maximal Assistance 6=Modified Bim 3=Moderate Assistance 7=Complete IndependenceSCALE: Activities may be completed with or without assistive devices. 5-Susleypdek-rqbptdh completes the activity by him/herself with no assistance from a helper. 5-Set-up or Clean-up Assistance-helper sets up or cleans up; patient completes activity. [place] assists only prior to or following the activity. 4-Supervision or Touching Assistance-helper provides verbal cues and/or touching/steadying and/or contact guard assistance as patient completes activity. Assistance may be provided throughout the activity or intermittently. 3-Partial/Moderate Assistance-helper does LESS THAN HALF the effort. [place] lifts, holds or supports trunk or limbs, but provides less than half the effort. 2-Substantial/Maximal Assistance-helper does MORE THAN HALF the effort. [place] lifts or holds trunk or limbs and provides more than half the effort. 0-Xqmkjqjil-kdwxln does ALL the effort. Patient does none of the effort to complete the activity. Or, the assistance of 2 or more helpers is required for the patient to complete the activity. If activity was not attempted, code reason: 7-Patient Refused. 9-Not Applicable-not attempted and the patient did not perform the activity before the current illness, exacerbation or injury. 10-Not Attempted due to Environmental Limitations-(lack of equipment, weather restraints, etc.). 88-Not Attempted due to Medical Conditions or Safety Concerns. Eating (QC): 5 On/Off Footwear: 2 Other Treatment OT/PT co-treat ([id number]), skills of 2 clinicians required for neuromuscular retraining, strategies for functional transfers and mobility. PT working on transfers, standing, w/c mobility and ambulation. OT working on functional transfers, ADLs and L UE during mobility/ambulation. Pt progressing with w/c mobility, min A and verbal cues to correct veering toward L. Pt working on standing (static/dynamic) at parallel bars. OT working with L UE for placement and dynamic standing balance. See PT notes for pt's progress. After session, pt lying in bed with call light/phone in reach. All needs met in room. OT Short Term Goals Short Term Goals Time Frame: Apr 11, 2020 Eatin Oral hygiene: 3 Toileting hygiene: 3 Shower/bathe self: 2 Upper body dressin Lower body dressin Putting on/taking off footwear: 2 OT Detention Goals Robotics Application Engineer Goals Time Frame: Apr 25, 2020 Eating (QC): 4 Oral Hygiene (QC): 4 Toileting Hygiene (QC): 3 Shower/Bathe Self (QC): 3 Upper Body Dressing (QC): 4 Lower Body Dressing (QC): 4 On/Off Footwear (QC): 4 Additional Goals: 1-Demonstrate ADL Tasks, 2-Verbalize Understanding, 3- ImproveStrength/[place] 1=Demonstrate adherence to instructed precautions during ADL tasks. 2=Patient will verbalize/demonstrate understanding of assistive devices/modifications for ADL. 3=Patient will improve strength/tolerance for activity to enable patient to perform ADL's. OT Education/Plan Problem List/Assessment Assessment: Decreased Activ Tolerance, Impaired Cognition, Impaired Self-Care Skills, Restricted Funct UE ROM Discharge Recommendations Plan/Recommendations: Continue POC Treatment Plan/Plan of Care Patient would benefit from OT for education, treatment and training to promote independence in ADL's, mobility, safety and/or upper extremity function for ADL's. Plan of Care: ADL Retraining, Functional Mobility, UE Funct Exercise/Act, UE Neuromus Re-Ed/Coord, Visual/Perceptual Retrain Treatment Duration: Apr 25, 2020 Frequency: At least 5 of 7 days/Wk (IRF) Estimated Hrs Per Day: 1.5 hours per day Agreement: Yes Rehab Potential: Good Time/GCodes Start Time: 07:30 Stop Time: 09:00 Total Time Billed (hr/min): 90 Billed Treatment Time 1 visit-ADL 2 (30 min) NM 4 (60 min) JOSIAH ESCALANTE Apr 17, 2020 09:00
[2020-04-17] MEDS: polyethylene glycoL POWDER 17 GM (MIRALAX) PACK PO SCH ×2 (09:06→22:01)
[2020-04-17] MEDS: WITCH HAZEL(TUCKS) 40 EA JAR TOP SCH ×4 (09:07→22:01)
[2020-04-17] MEDS: HYDROcodone/APAP 5 MG/325 MG (LORTAB) TAB PO PRN ×2 (11:11→22:00)
--- NOTE | 2020-04-17 11:24 | Speech Therapy Daily Note ---
Speech Daily Progress Note Subjective Date Seen by Provider: Apr 17, 2020 Time Seen by Provider: 00:30 Patient resting in bed. He states his other therapy was tiring but he took an extra step today. Objective Patient completed advanced general information questions with 90% accuracy given 10% verbal cues and/or repetitions. Assessment Assessment Current Status: Good Progress Treatment Plan Continue Plan of Care Speech Short Term Goals Short Term Goals Short Term Goals 1) Patient will complete memory tasks related to his daily needs at 90% or greater with minimal cues. 2) Patient will complete safety awareness tasks related to his daily needs at 90% or greater with minimal cues. 3) Patient will complete problem solving tasks related to his daily needs at 90% or greater with minimal cues. 4) Patient will tolerate least restrictive diet level without s/s of aspiration at 90% or greater. 5) Patient/caregiver will utilize compensatory strategies as trained at 90% or greater with minimal cues. Speech Halfway Goals Gi Technician Goals Patient will improve cognitive-communication necessary for safety and daily living tasks with minimal assist. Patient will maintain adequate nutrition/hydration via safe effective swallow function. Speech-Plan Patient/Family Goals Patient/Family Goals: Patient plans on returning home where he lives with his . Treatment Plan Speech Therapy Treatment Plan: Continue Plan of Care Treatment Duration: Apr 12, 2020 Frequency: 5 times per week Estimated Hrs Per Day: .5 hour per day Rehab Potential: Good Barriers to Learning: Patient' recent CVA, although his cognitive status is improving Pt/Family Agrees to Plan: Yes Safety Risks/Education Teaching Recipient: Patient, Significant Other Teaching Methods: Demonstration, Discussion Response to Teaching: Verbalize Understanding, Return Demonstration Education Topics Provided: Continued safety within his room and with oral intake Time Speech Therapy Time In: 10:30 Speech Therapy Time Out: 11:00 Total Billed Time: 30 Billed Treatment Time 1LEVI BETHANIA ST Apr 17, 2020 11:24
[2020-04-17] MEDS: ONDANSETRON 4 MG (ZOFRAN) ORAL DISSOLVE TAB PO PRN (14:23)
--- NOTE | 2020-04-17 14:24 | Physical Therapy Progress Note ---
Therapy Progress Note Hold PT this afternoon. Patient has been very ill, his says he vomited everywhere and patient states he is still very nauseated, nurse is aware of the situation. MARK RYAN PT Apr 17, 2020 14:24
[2020-04-17] MEDS: ENOXAPARIN 40 MG/0.4 ML (LOVENOX) SYR SC SCH (17:13)
[2020-04-17 18:00] VITALS: BP 135/84
[2020-04-17] MEDS: BACLOFEN 10 MG (LIORESAL) TAB PO SCH (21:59)
[2020-04-17] MEDS: SERTRALINE 50 MG (ZOLOFT) TABLET PO SCH (21:59)
--- NOTE | 2020-04-18 03:30 | NUR ---
BLADDER SCAN 165CC URINE NOTED.
--- NOTE | 2020-04-18 05:17 | NUR ---
2300 - PATIENT REQUESTED TO USE URINAL. 300CC OF DARK/YELLOW URINE NOTED ON OUTPUT.
[2020-04-18 05:54] VITALS: BP 131/68
--- NOTE | 2020-04-18 06:12 | PM&R Progress Note ---
Subjective HPI/CC On Admission Date Seen by Provider: Apr 18, 2020 Time Seen by Provider: 09:45 Subjective/Events-last exam 04/18/20: Nauseated with physical therapy again today Vomited yesterday Zofran was given today Bowels moved four days ago will start suppository in fleets No in/out catheter required 04/17/20: Patient required IN/OUT Catheter x2 Ongoing issue with Bladder retention Bowels not moving so will be given meds again Overall doing very well 04/16/20 Preston has been discontinued and voiding well Bladder scan and In and Out Caths if needed Left sided weakness remains Very motivated appears to be depressed currently today Baclofen in the morning really helps him so will continue that Dr Drake placed him on Bactrim for UTI e coli Labs noted Mehnaz lift required Preston cath replaced and will await Urology plan Slept well Checked meds and labs Conferred with RN Reviewed therapy notes Review of Systems General: Fatigue, Malaise Neurological: Weakness Objective Exam Vital Signs Vital Signs Date Time Temp Pulse Resp B/P (MAP) Pulse Ox O2 Delivery O2 Flow Rate FiO2 04/18/20 08:48 Room Air 04/18/20 05:54 36.2 81 12 131/68 (89) 96 Capillary Refill : Less Than 3 Seconds General Appearance: No Apparent Distress, WD/WN, Chronically ill HEENT: PERRL/EOMI, Normal ENT Inspection, Pharynx Normal Neck: Full Range of Motion, Normal Inspection, Non Tender, Supple, Carotid Bruit Respiratory: Chest Non Tender, Lungs Clear, Normal Breath Sounds, No Accessory Muscle Use, No Respiratory Distress Cardiovascular: Regular Rate, Rhythm, No Edema, No Gallop, No JVD, No Murmur, Normal Peripheral Pulses Gastrointestinal: Normal Bowel Sounds, No Organomegaly, No Pulsatile Mass, Non Tender, Soft Back: Normal Inspection, No CVA Tenderness, No Vertebral Tenderness Extremity: Normal Capillary Refill, Normal Inspection, Normal Range of Motion (except left side), Non Tender, No Calf Tenderness, No Pedal Edema Neurologic/Psychiatric: Alert, Oriented x3, No Motor/Sensory Deficits, Normal Mood/Affect, Depressed Affect, Facial Droop (left), Motor Weakness (left sided paresis 0/5 flaccid) Skin: Normal Color, Warm/Dry Lymphatic: No Adenopathy Results/Procedures Lab Patient resulted labs reviewed. FIM Transfers Therapy Code Descriptions/Definitions Functional [place] Measure: 0=Not Assessed/NA 4=Minimal Assistance 1=Total Assistance 5=Supervision or Setup 2=Maximal Assistance 6=Modified [place] 3=Moderate Assistance 7=Complete IndependenceSCALE: Activities may be completed with or without assistive devices. 6-Kxcnnlgqpi-kqtplll completes the activity by him/herself with no assistance from a helper. 5-Set-up or Clean-up Assistance-helper sets up or cleans up; patient completes activity. [place] assists only prior to or following the activity. 4-Supervision or Touching Assistance-helper provides verbal cues and/or touching/steadying and/or contact guard assistance as patient completes activity. Assistance may be provided throughout the activity or intermittently. 3-Partial/Moderate Assistance-helper does LESS THAN HALF the effort. [place] lifts, holds or supports trunk or limbs, but provides less than half the effort. 2-Substantial/Maximal Assistance-helper does MORE THAN HALF the effort. [place] lifts or holds trunk or limbs and provides more than half the effort. 3-Ldsemtokd-rkjkkf does ALL the effort. Patient does none of the effort to complete the activity. Or, the assistance of 2 or more helpers is required for the patient to complete the activity. If activity was not attempted, code reason: 7-Patient Refused. 9-Not Applicable-not attempted and the patient did not perform the activity before the current illness, exacerbation or injury. 10-Not Attempted due to Environmental Limitations-(lack of equipment, weather restraints, etc.). 88-Not Attempted due to Medical Conditions or Safety Concerns. Roll Left to Right (QC): 2 Sit to Lying (QC): 2 Sit to Stand (QC): 3 Chair/Wbj-bg-Xkidj Xfer(QC): 3 Car Transfer (QC): 1 Gait Training Does the Patient Walk?: Yes Distance: 6'x3 Walk 10 feet (QC): 88 Walk 50 ft with 2 Turns(QC): 88 Walk 150 ft (QC): 88 Walking 10ft/uneven surface-QC: 88 Gait Persons Needed: 3 Gait Assistive Device: Parallel Bars Wheelchair Training Does the Pt Use a Wheelchair?: Yes Distance: 150' Wheel 50 ft with 2 turns (QC): 3 Wheel 150 ft (QC): 3 Type of Wheelchair: Manual Stair Training 1 Step (curb) (QC): 88 4 Steps (QC): 88 12 Steps (QC): 88 Balance Picking up an Object (QC): 88 ADL-Treatment Eating (QC): 5 Oral Hygiene (QC): 4 Bathing Location: L Arm, L Upper Leg, R Upper Leg, Chest, Abdomen, Perineal Area Shower/Bathe Self (QC): 2 Upper Body Dressing (QC): 2 Lower Body Dressing (QC): 1 On/Off Footwear (QC): 2 Toileting Hygiene (QC): 1 Toilet Transfer (QC): 2 Assessment/Plan Assessment and Plan Assess & Plan/Chief Complaint Assessment: Catastrophic CVA with left sided flaccidity Left facial droop COVID-19 antibody + Bipolar disorder Autism spectrum Urinary retention Preston cath in place consulted Dr Drake Plan: IRF protocol Dr Drake consultation Monitor bowel function Fall risk CBD oil Mehnaz lift Voiding much better on his own Maintain bladder meds Bowel regimen Decreasing pain medication 04/01/20: Voltaren gel for back pain Lortab for pain Mehnaz lift completely no sit-2-stand ability Flaccid left side continues 04/02/20: Patient went to father's today Continue Voltaren gel for back pain Sit to stand no longer an option needs Mehnaz lift 04/03/20: Bowels moved 2 days ago Laxatives ordered Discontinue the Preston catheter and Dr. Matias will monitor closely for retention Completed Augmentin Baclofen and pain medication taken on a real regular basis prone for dependency and addiction potential 04/04/20: Urology management of urinary retention since catheter removed Continue pain management but addiction potential noted Air mattress to prevent skin breakdown Laxatives due to constipation now 04/05/20: Bowels still not moving, supp and Fleets and SSE will be given Decrease pain meds to Q6hrs due to overuse and narcotic bowel noted complications Addiction potential noted Preston cath replaced and Flomax and Urecholine maintained now 04/06/20: Weaned Lortab Baclofen prn is working well BM regimen to continue Preston cath 04/07/20: Baclofen 10mg at night Maintain BM regimen Likely preston cath will be required again 04/08/20: Preston reinserted Labs stable BM regimen 04/09/20: Improvement in spontaneous urination Maintain Flomax and Urecholine Monitor closely 04/10/20: Disposition pending Continue aggressive therapy Cystoscopy Bladder meds 04/11/20: Had Cysto today by Urology Urinalysis is pending Pain pill on rare occasions 04/12/20: Maintain Baclofen Dr. Drake to manage Ecoli UTI Maintain Mehnaz lift In/Out catheter prn 04/13/20: UTI Tx Bactrim Monitor closely 04/14/20: UTI Tx Check labs in am 04/15/20: Radha helping with Hemorrhoids Labs reviewed Baclofen working well Last pain pill was 4 days ago 04/17/20: Laxatives Bladder management Family education 04/18/20: Monitor nausea and vomiting Needs suppository or enema today Monitor closely (1) Acute right MCA stroke Status: Acute (2) Facial droop due to cerebrovascular accident (CVA) (3) Bipolar disorder (4) Autism spectrum (5) Urinary retention (6) Preston catheter in place (7) Coronavirus infection, unspecified Status: Chronic (8) Left-sided neglect Status: Acute (9) Dysphasia due to recent cerebrovascular accident (CVA) Status: Acute AIDE GATICA DO Apr 18, 2020 06:12
[2020-04-18] MEDS: BETHANECHOL 25 MG (URECHOLINE) TAB PO SCH ×4 (06:41→22:03)
--- NOTE | 2020-04-18 07:05 | NUR ---
BLADDER SCAN - 317CC
[2020-04-18] MEDS: meTOproloL SUCCINATE 50 MG (TOPROL XL) TAB PO SCH (08:36)
[2020-04-18] MEDS: ASPIRIN 325 MG (5 GR) TABLET PO SCH (08:36)
[2020-04-18] MEDS: TAMSULOSIN 0.4 MG (FLOMAX) CAP PO SCH ×2 (08:36→22:02)
[2020-04-18] MEDS: SENNA W/DOCUSATE (SENOKOT S) TABLET PO SCH ×2 (08:36→22:02)
[2020-04-18] MEDS: DOCUSATE SODIUM 100 MG (COLACE) CAP PO SCH ×2 (08:37→22:02)
[2020-04-18] MEDS: polyethylene glycoL POWDER 17 GM (MIRALAX) PACK PO SCH ×2 (08:37→22:02)
[2020-04-18] MEDS: BACLOFEN 10 MG (LIORESAL) TAB PO PRN (08:37)
[2020-04-18] MEDS: WITCH HAZEL(TUCKS) 40 EA JAR TOP SCH ×4 (08:37→22:03)
--- NOTE | 2020-04-18 08:52 | Occupational Ther Daily Note ---
OT Current Status-Daily Note Subjective Pt alert, lying in bed. Pt agrees to therapy. Pt c/o nausea though only slightly. Mental Status/Objective Patient Orientation: Person, Place, Time, Situation ADL-Treatment OT/PT co-treat ([id number]), skills of 2 clinicians required for skilled instructions and strategies/modifications during mobility, ADLs, transfers and neuromuscular retraining due to pt's decreased body awareness, problem solving and safety. Pt agrees to shower. Mod A for supine to EOB. Transfer to L side, SPT, assist x1 for transfer though 2nd person assist with transfer for safety due to pt's impulsivity and decreased body awareness. Pt transferred to shower chair with cutout to transport to large shower room. Pt required instruction to wash all areas that pt could reach safely, assist for lower legs/feet and buttocks. Max A for upper body dressing. Assist x2 for lower body dressing. Max A for footwear. Therapy Code Descriptions/Definitions Functional [place] Measure: 0=Not Assessed/NA 4=Minimal Assistance 1=Total Assistance 5=Supervision or Setup 2=Maximal Assistance 6=Modified [place] 3=Moderate Assistance 7=Complete IndependenceSCALE: Activities may be completed with or without assistive devices. 4-Roknsxfrum-rqogybe completes the activity by him/herself with no assistance from a helper. 5-Set-up or Clean-up Assistance-helper sets up or cleans up; patient completes activity. [place] assists only prior to or following the activity. 4-Supervision or Touching Assistance-helper provides verbal cues and/or touching/steadying and/or contact guard assistance as patient completes activity. Assistance may be provided throughout the activity or intermittently. 3-Partial/Moderate Assistance-helper does LESS THAN HALF the effort. [place] lifts, holds or supports trunk or limbs, but provides less than half the effort. 2-Substantial/Maximal Assistance-helper does MORE THAN HALF the effort. [place] lifts or holds trunk or limbs and provides more than half the effort. 0-Oafgxsuly-hklsre does ALL the effort. Patient does none of the effort to complete the activity. Or, the assistance of 2 or more helpers is required for the patient to complete the activity. If activity was not attempted, code reason: 7-Patient Refused. 9-Not Applicable-not attempted and the patient did not perform the activity be fore the current illness, exacerbation or injury. 10-Not Attempted due to Environmental Limitations-(lack of equipment, weather restraints, etc.). 88-Not Attempted due to Medical Conditions or Safety Concerns. Shower/Bathe Self (QC): 3 Upper Body Dressing (QC): 2 Lower Body Dressing (QC): 1 On/Off Footwear: 2 Other Treatment See PT note for standing at parallel bars and w/c mobility. Pt is impulsive during tasks with dynamic standing, assist x2 needed. Pt requires verbal cues to maintain balance and sitting upright during tasks due to pt losing focus on body positioning. After session, pt lying in bed with call light/phone in reach. All needs met in room. OT Short Term Goals Short Term Goals Time Frame: Apr 11, 2020 Eatin Oral hygiene: 3 Toileting hygiene: 3 Shower/bathe self: 2 Upper body dressin Lower body dressin Putting on/taking off footwear: 2 OT Latex Dipper Goals Assisted Goals Time Frame: Apr 25, 2020 Eating (QC): 4 Oral Hygiene (QC): 4 Toileting Hygiene (QC): 3 Shower/Bathe Self (QC): 3 Upper Body Dressing (QC): 4 Lower Body Dressing (QC): 4 On/Off Footwear (QC): 4 Additional Goals: 1-Demonstrate ADL Tasks, 2-Verbalize Understanding, 3- ImproveStrength/[place] 1=Demonstrate adherence to instructed precautions during ADL tasks. 2=Patient will verbalize/demonstrate understanding of assistive devices/modifications for ADL. 3=Patient will improve strength/tolerance for activity to enable patient to perform ADL's. OT Education/Plan Problem List/Assessment Assessment: Decreased Activ Tolerance, Decreased UE Strength, Dependent Transfers, Impaired Cognition, Impaired Coordination, Impaired Funct Balance, Impaired Self-Care Skills Discharge Recommendations Plan/Recommendations: Continue POC Treatment Plan/Plan of Care Patient would benefit from OT for education, treatment and training to promote independence in ADL's, mobility, safety and/or upper extremity function for ADL's. Plan of Care: ADL Retraining, Functional Mobility, UE Funct Exercise/Act, UE Neuromus Re-Ed/Coord, Visual/Perceptual Retrain Treatment Duration: Apr 25, 2020 Frequency: At least 5 of 7 days/Wk (IRF) Estimated Hrs Per Day: 1.5 hours per day Agreement: Yes Rehab Potential: Good Time/GCodes Start Time: 07:30 Stop Time: 09:00 Total Time Billed (hr/min): 90 Billed Treatment Time 1 visit-ADL 3 (45 min) FA 2 (30 min) NM 1 (15 min) co-treat with PT 60 min ([id number]), individual 30 min ([id number]) JOSIAH ESCALANTE Apr 18, 2020 08:52
[2020-04-18] MEDS: ONDANSETRON 4 MG (ZOFRAN) ORAL DISSOLVE TAB PO PRN ×2 (08:54→20:39)
--- NOTE | 2020-04-18 08:55 | Physical Therapy Daily Note ---
PT Daily Note-Current Subjective Patient in shower room pre tx with OT, will be co-treating with OT due to poor patient mobility, strength, endurance, sitting and standing balance, the need to coordinate UE and LE during activity. Appearance Patient in bed post tx with nurse call, phone, tray, all needs met. Mental Status Patient Orientation: Person, Place, Situation Transfers SCALE: Activities may be completed with or without assistive devices. 6-Oigtzpklfk-ukmsuty completes the activity by him/herself with no assistance from a helper. 5-Set-up or Clean-up Assistance-helper sets up or cleans up; patient completes activity. [place] assists only prior to or following the activity. 4-Supervision or Touching Assistance-helper provides verbal cues and/or touchin g/steadying and/or contact guard assistance as patient completes activity. Assistance may be provided throughout the activity or intermittently. 3-Partial/Moderate Assistance-helper does LESS THAN HALF the effort. [place] lifts, holds or supports trunk or limbs, but provides less than half the effort. 2-Substantial/Maximal Assistance-helper does MORE THAN HALF the effort. [place] lifts or holds trunk or limbs and provides more than half the effort. 5-Pgnhpvkqn-nyleaf does ALL the effort. Patient does none of the effort to complete the activity. Or, the assistance of 2 or more helpers is required for the patient to complete the activity. If activity was not attempted, code reason: 7-Patient Refused. 9-Not Applicable-not attempted and the patient did not perform the activity before the current illness, exacerbation or injury. 10-Not Attempted due to Environmental Limitations-(lack of equipment, weather restraints, etc.). 88-Not Attempted due to Medical Conditions or Safety Concerns. Roll Left & Right (QC): 3 Sit to Lying (QC): 2 Sit to Stand (QC): 3 Chair/Qni-up-Dhwri Xfer(QC): 2 Patient stood in shower room with PT assist for dressing and finish bathing, WC to therapy gym, stood in parallel bars x2 for UE activity and practicing standing balance at the same time without UE on parallel bars, patient was starting to get nauseated, worked on WC mobility and then back to bed. Wheelchair Training Does the Pt Use a Wheelchair?: Yes Wheel 50 ft with 2 turns (QC): 3 Wheel 150 ft (QC): 3 Type of Wheelchair: Manual Min assist to help steer during WC training. Patient is able to use the right UE and LE but still needs assist with steering. Propelled WC outside to courtyard and worked on training on ramp up and down twice. Treatments WC mobility, bed mobility and transfers, balance training. PT worked on s tanding, transfers, WC mobility, balance, OT worked on bathing and dressing, UE activity, assist with transfers and UE positioning and safety during activity. Assessment Current Status: Poor Progress no change in mobility PT Short Term Goals Short Term Goals Time Frame: Apr 04, 2020 Roll Left & Right: 3 Sit to lyin Lying to sitting on side of be: 3 Sit to stand: 3 Chair/swb-ci-gbxry transfer: 2 PT Usp Goals Usp Goals PT Senior Treasury Consultant Goals Time Frame: Apr 18, 2020 Roll Left & Right (QC): 3 (Pablo) Sit to Lying (QC): 3 (Pablo) Lying-Sitting on Side/Bed(QC): 3 (Pablo) Sit to Stand (QC): 3 (Pablo) Chair/Dyh-oc-Cohxk Xfer(QC): 3 (Pablo) Toilet Transfer (QC): 3 (Pablo) Car Transfer (QC): 3 (mod A) Does the Patient Walk: No and Walking Goal NOT indicated Walk 10 feet (QC): 88 Walk 50ft with 2 Turns (QC): 88 Walk 150 ft (QC): 88 Walking 10ft on Uneven Surface: 88 1 Step (curb) (QC): 88 4 Steps (QC): 88 12 Steps (QC): 88 Picking up an Object (QC): 88 Does the Pt use WC or Scooter?: Yes Wheel 50 feet with 2 turns (QC: 3 (Pablo) Type: Manual Wheel 150 feet: 3 (Pablo) Type: Manual PT Plan Problem List Problem List: Activity Tolerance, Functional Strength, Safety, Balance, Gait, Transfer, Bed Mobility, ROM Treatment/Plan Treatment Plan: Continue Plan of Care Treatment Plan: Bed Mobility, Education, Functional Activity [place], Functional Strength, Group Therapy, Gait, Safety, Therapeutic Exercise, Transfers Treatment Duration: Apr 18, 2020 Frequency: At least 5 of 7 days/Wk (IRF) Estimated Hrs Per Day: 1.5 hours per day Patient and/or Family Agrees t: Yes Safety Risks/Education Patient Education: Transfer Techniques, Correct Positioning, W/C Management, Safety Issues Teaching Recipient: Patient Teaching Methods: Demonstration, Discussion Response to Teaching: Reinforcement Needed Time/GCodes Time In: 0800 Time Out: 0900 Total Billed Treatment Time: 60 Total Billed Treatment 1 visit FA 60' co-treated for 60' MARK RYAN PT Apr 18, 2020 08:55
[2020-04-18] MEDS: DICLOFENAC 1% GEL 100 GM (VOLTAREN) TUBE TOP PRN (11:00)
--- NOTE | 2020-04-18 11:51 | Progress Note - Urology ---
Progress Note-Urology Progress Notes/Assess & Plan Progress/Assessment & Plan CONTINUES VOIDING ON OWN. NEEDED ONE STRAIGHT CATH YESTERDAY Final Diagnosis URINE RETENTION TIFFANIE WOMACK MD Apr 18, 2020 11:51
[2020-04-18] MEDS: PATCH REMOVAL TP SCH (11:54)
--- NOTE | 2020-04-18 12:06 | Progress Note ---
BERTA CHAVES MED STUDENT 04/18/20 1206: Progress Note Connor Wei is a 50 yo M with history of ASD and right CVA with left hemiparesis in rehabilitation for his stroke symptoms. Over the past several days the patient has experienced the following changes (per the opinion of Berta Chaves): -mild but steady improvement with PT and OT. Able to stand at parallel bars for several minutes. -bathes and clothes with moderate to maximal assist. -some trouble with urinary retention and constipation. No urinary retention today (04/18) or last night. -episode of vomiting 04/17 after his moved him supine following a meal -nausea the morning of 04/18 while at PT -good progress with speech therapy Berta Chaves Medical Student KIARA GATICA DO 04/19/20 0540: Supervisory-Addendum Brief Verification & Attestation Participated in pt care: history, MDM, physical Personally performed: exam, history, MDM, supervision of care Care discussed with: Medical Student Procedures: n/a Results interpretation: Verified all documentation Verification and Attestation of Medical Student E/M Service A medical student performed and documented this service in my presence. I reviewed and verified all information documented by the medical student and made modifications to such information, when appropriate. I personally performed the physical exam and medical decision making. Kiara Gatica, Apr 19, 2020,05:40 BERTA CHAVES MED STUDENT Apr 18, 2020 12:06 KIARA GATICA DO Apr 19, 2020 05:40
[2020-04-18] MEDS: LIDOCAINE UROJET 2% GEL 10 ML PKG TOP PRN ×2 (12:11→18:38)
[2020-04-18] MEDS ORDERED: LIDOCAINE UROJET 2% GEL 10 ML PKG TOP PRN (12:15)
--- NOTE | 2020-04-18 13:51 | Physical Therapy Daily Note ---
PT Daily Note-Current Subjective Patient in bed pre tx, agrees to PT, says he is no longer nauseated. Appearance Patient in bed post tx with nurse call, phone, tray, all needs met, in room. Mental Status Patient Orientation: Person, Place, Situation Transfers SCALE: Activities may be completed with or without assistive devices. 7-Snuvrqeamo-expdiur completes the activity by him/herself with no assistance from a helper. 5-Set-up or Clean-up Assistance-helper sets up or cleans up; patient completes activity. [place] assists only prior to or following the activity. 4-Supervision or Touching Assistance-helper provides verbal cues and/or touching/steadying and/or contact guard assistance as patient completes activity. Assistance may be provided throughout the activity or intermittently. 3-Partial/Moderate Assistance-helper does LESS THAN HALF the effort. [place] lifts, holds or supports trunk or limbs, but provides less than half the effort. 2-Substantial/Maximal Assistance-helper does MORE THAN HALF the effort. [place] lifts or holds trunk or limbs and provides more than half the effort. 7-Tpcwaehvr-dfxett does ALL the effort. Patient does none of the effort to complete the activity. Or, the assistance of 2 or more helpers is required for the patient to complete the activity. If activity was not attempted, code reason: 7-Patient Refused. 9-Not Applicable-not attempted and the patient did not perform the activity before the current illness, exacerbation or injury. 10-Not Attempted due to Environmental Limitations-(lack of equipment, weather restraints, etc.). 88-Not Attempted due to Medical Conditions or Safety Concerns. Exercises Supine Ex: Ankle pumps, Quad Set, Glut sets, Heel Slides, Short Arc Quads, Straight leg raise, Hip abd/add Supine Reps: 20 (RLE) LLE stretching, PROM in all planes, Treatments ROM, LE exercise Assessment Current Status: Poor Progress Patient had increased muscle tone in LLE, relieved with PROM PT Short Term Goals Short Term Goals Time Frame: Apr 04, 2020 Roll Left & Right: 3 Sit to lyin Lying to sitting on side of be: 3 Sit to stand: 3 Chair/bnb-lr-gztpy transfer: 2 PT Assisted Goals Shade Maker Goals PT Shade Maker Goals Time Frame: Apr 18, 2020 Roll Left & Right (QC): 3 (Pablo) Sit to Lying (QC): 3 (Pablo) Lying-Sitting on Side/Bed(QC): 3 (Pablo) Sit to Stand (QC): 3 (Pablo) Chair/Yuj-gy-Efdsr Xfer(QC): 3 (Pablo) Toilet Transfer (QC): 3 (Pablo) Car Transfer (QC): 3 (mod A) Does the Patient Walk: No and Walking Goal NOT indicated Walk 10 feet (QC): 88 Walk 50ft with 2 Turns (QC): 88 Walk 150 ft (QC): 88 Walking 10ft on Uneven Surface: 88 1 Step (curb) (QC): 88 4 Steps (QC): 88 12 Steps (QC): 88 Picking up an Object (QC): 88 Does the Pt use WC or Scooter?: Yes Wheel 50 feet with 2 turns (QC: 3 (Pablo) Type: Manual Wheel 150 feet: 3 (Pablo) Type: Manual PT Plan Problem List Problem List: Activity Tolerance, Functional Strength, Safety, Balance, Gait, Transfer, Bed Mobility, ROM Treatment/Plan Treatment Plan: Continue Plan of Care Treatment Plan: Bed Mobility, Education, Functional Activity [place], Functional Strength, Group Therapy, Gait, Safety, Therapeutic Exercise, Transfers Treatment Duration: Apr 18, 2020 Frequency: At least 5 of 7 days/Wk (IRF) Estimated Hrs Per Day: 1.5 hours per day Patient and/or Family Agrees t: Yes Safety Risks/Education Patient Education: Correct Positioning, Safety Issues Teaching Recipient: Patient Teaching Methods: Demonstration, Discussion Response to Teaching: Reinforcement Needed Time/GCodes Time In: 1330 Time Out: 1345 Total Billed Treatment Time: 15 Total Billed Treatment 1 visit EX 15' MARK RYAN PT Apr 18, 2020 13:50
--- NOTE | 2020-04-18 13:52 | Speech Therapy Daily Note ---
Speech Daily Progress Note Subjective Date Seen by Provider: Apr 18, 2020 Time Seen by Provider: 00:30 Patient was sitting up in bed eating his lunch when I entered his room. was present. Objective Patient completed a series of Bangl[place] History questions at 80% with 20% verbal cues and/or repetitions. Assessment Assessment Current Status: Good Progress Treatment Plan Continue Plan of Care Speech Short Term Goals Short Term Goals Short Term Goals 1) Patient will complete memory tasks related to his daily needs at 90% or greater with minimal cues. 2) Patient will complete safety awareness tasks related to his daily needs at 90% or greater with minimal cues. 3) Patient will complete problem solving tasks related to his daily needs at 90% or greater with minimal cues. 4) Patient will tolerate least restrictive diet level without s/s of aspiration at 90% or greater. 5) Patient/caregiver will utilize compensatory strategies as trained at 90% or greater with minimal cues. Speech Detention Goals Detention Goals Patient will improve cognitive-communication necessary for safety and daily living tasks with minimal assist. Patient will maintain adequate nutrition/hydration via safe effective swallow function. Speech-Plan Patient/Family Goals Patient/Family Goals: Patient plans on returning home where he lives with his . Treatment Plan Speech Therapy Treatment Plan: Continue Plan of Care Treatment Duration: Apr 12, 2020 Frequency: 5 times per week Estimated Hrs Per Day: .5 hour per day Rehab Potential: Good Barriers to Learning: Patient's cognitive deficits secondary to his recent CVA Pt/Family Agrees to Plan: Yes Safety Risks/Education Teaching Recipient: Patient, Significant Other Teaching Methods: Demonstration, Discussion Response to Teaching: Verbalize Understanding, Return Demonstration Education Topics Provided: Continued safety with oral intake Time Speech Therapy Time In: 13:00 Speech Therapy Time Out: 13:30 Total Billed Time: 30 Billed Treatment Time 1, BRIAN Ahuja Apr 18, 2020 13:52
[2020-04-18] MEDS: ENOXAPARIN 40 MG/0.4 ML (LOVENOX) SYR SC SCH (17:01)
--- NOTE | 2020-04-18 17:07 | NUR ---
CM/SS PATIENT CARE CONFERENCE Provided Summary to patient and spouse Carole for their review, signed, charted. Both are in agreement to his continued stay with next review 04/24/20. Patient and Carole understand we will begin preparing for all that is needed for patient to return home. Both indicate their current residence is simply not appropriate for patient to return to. Carole has drawn simple functional house plans and has a call in to an [facility] group about a quick build. The goal is a home on the same property in front of the older structure. If the home can not be completed timely, patient will be referred to community SNF if insurance approves/authorizes.
[2020-04-18 18:00] VITALS: BP 125/59
[2020-04-18] MEDS: BISACODYL 10 MG SUPP (DULCOLAX) PR PRN (18:32)
[2020-04-18] MEDS: BACLOFEN 10 MG (LIORESAL) TAB PO SCH (22:02)
[2020-04-18] MEDS: SERTRALINE 50 MG (ZOLOFT) TABLET PO SCH (22:03)
--- NOTE | 2020-04-18 22:20 | NUR ---
PATIENT WITH NAUSEA AND VOMITING, LARGE AMOUNT X2. DIAPHORETIC, NO OTHER C/O. VITAL SIGNS STABLE. PO ZOFRAN INEFFECTIVE. NOTIFIED DR. GATICA, ORDER RECEIVED FOR PHENERGAN 25MG IM Q6HRS PRN NAUSEA/VOMITING.
[2020-04-18 22:30] VITALS: BP 111/66
[2020-04-18] MEDS ORDERED: PROMETHAZINE INJ 25 MG/ML (PHENERGAN) AMP IM PRN (22:30)
--- NOTE | 2020-04-18 23:45 | NUR ---
PATIENT STATES NAUSEA IS SUBSIDING. NO LONGER DIAPHORETIC. NO PHENERGAN NEEDED.
[2020-04-19 05:15] VITALS: BP 129/67
[2020-04-19] MEDS: BETHANECHOL 25 MG (URECHOLINE) TAB PO SCH ×4 (05:43→21:18)
--- NOTE | 2020-04-19 05:53 | PM&R Progress Note ---
Subjective HPI/CC On Admission Date Seen by Provider: Apr 19, 2020 Time Seen by Provider: 10:00 Subjective/Events-last exam 04/19/20: Had another episode of nausea and vomiting Had two incontinent episodes because of the vomiting Bowels moved and it was large and he became Diaphoretic He's very motivated in therapy Will schedule laxatives 04/18/20: Nauseated with physical therapy again today Vomited yesterday Zofran was given today Bowels moved four days ago will start suppository in fleets No in/out catheter required 04/17/20: Patient required IN/OUT Catheter x2 Ongoing issue with Bladder retention Bowels not moving so will be given meds again Overall doing very well 04/16/20 Preston has been discontinued and voiding well Bladder scan and In and Out Caths if needed Left sided weakness remains Very motivated appears to be depressed currently today Baclofen in the morning really helps him so will continue that Dr Drake placed him on Bactrim for UTI e coli Labs noted Mehnaz lift required Preston cath replaced and will await Urology plan Slept well Checked meds and labs Conferred with RN Reviewed therapy notes Review of Systems General: Fatigue, Malaise Neurological: Weakness Objective Exam Vital Signs Vital Signs Date Time Temp Pulse Resp B/P (MAP) Pulse Ox O2 Delivery O2 Flow Rate FiO2 04/19/20 09:00 Room Air 04/19/20 05:15 36.3 73 18 129/67 (87) 96 Capillary Refill : Less Than 3 Seconds General Appearance: No Apparent Distress, WD/WN, Chronically ill HEENT: PERRL/EOMI, Normal ENT Inspection, Pharynx Normal Neck: Full Range of Motion, Normal Inspection, Non Tender, Supple, Carotid Bruit Respiratory: Chest Non Tender, Lungs Clear, Normal Breath Sounds, No Accessory Muscle Use, No Respiratory Distress Cardiovascular: Regular Rate, Rhythm, No Edema, No Gallop, No JVD, No Murmur, Normal Peripheral Pulses Gastrointestinal: Normal Bowel Sounds, No Organomegaly, No Pulsatile Mass, Non Tender, Soft Back: Normal Inspection, No CVA Tenderness, No Vertebral Tenderness Extremity: Normal Capillary Refill, Normal Inspection, Normal Range of Motion (except left side), Non Tender, No Calf Tenderness, No Pedal Edema Neurologic/Psychiatric: Alert, Oriented x3, No Motor/Sensory Deficits, Normal Mood/Affect, Depressed Affect, Facial Droop (left), Motor Weakness (left sided paresis 0/5 flaccid) Skin: Normal Color, Warm/Dry Lymphatic: No Adenopathy Results/Procedures Lab Laboratory Tests 04/19/20 05:58 Patient resulted labs reviewed. FIM Transfers Therapy Code Descriptions/Definitions Functional [place] Measure: 0=Not Assessed/NA 4=Minimal Assistance 1=Total Assistance 5=Supervision or Setup 2=Maximal Assistance 6=Modified [place] 3=Moderate Assistance 7=Complete IndependenceSCALE: Activities may be completed with or without assistive devices. 5-Aymtlvwqye-njznput completes the activity by him/herself with no assistance from a helper. 5-Set-up or Clean-up Assistance-helper sets up or cleans up; patient completes activity. [place] assists only prior to or following the activity. 4-Supervision or Touching Assistance-helper provides verbal cues and/or touching/steadying and/or contact guard assistance as patient completes activity. Assistance may be provided throughout the activity or intermittently. 3-Partial/Moderate Assistance-helper does LESS THAN HALF the effort. [place] lifts, holds or supports trunk or limbs, but provides less than half the effort. 2-Substantial/Maximal Assistance-helper does MORE THAN HALF the effort. [place] lifts or holds trunk or limbs and provides more than half the effort. 2-Unmxmanfk-qlfvya does ALL the effort. Patient does none of the effort to complete the activity. Or, the assistance of 2 or more helpers is required for the patient to complete the activity. If activity was not attempted, code reason: 7-Patient Refused. 9-Not Applicable-not attempted and the patient did not perform the activity before the current illness, exacerbation or injury. 10-Not Attempted due to Environmental Limitations-(lack of equipment, weather restraints, etc.). 88-Not Attempted due to Medical Conditions or Safety Concerns. Roll Left to Right (QC): 3 Sit to Lying (QC): 2 Sit to Stand (QC): 3 Chair/Oik-vt-Izwhz Xfer(QC): 2 Car Transfer (QC): 1 Gait Training Does the Patient Walk?: Yes Distance: 6'x3 Walk 10 feet (QC): 88 Walk 50 ft with 2 Turns(QC): 88 Walk 150 ft (QC): 88 Walking 10ft/uneven surface-QC: 88 Gait Persons Needed: 3 Gait Assistive Device: Parallel Bars Wheelchair Training Does the Pt Use a Wheelchair?: Yes Distance: 150' Wheel 50 ft with 2 turns (QC): 3 Wheel 150 ft (QC): 3 Type of Wheelchair: Manual Stair Training 1 Step (curb) (QC): 88 4 Steps (QC): 88 12 Steps (QC): 88 Balance Picking up an Object (QC): 88 ADL-Treatment Eating (QC): 5 Oral Hygiene (QC): 4 Bathing Location: L Arm, L Upper Leg, R Upper Leg, Chest, Abdomen, Perineal Area Shower/Bathe Self (QC): 3 Upper Body Dressing (QC): 2 Lower Body Dressing (QC): 1 On/Off Footwear (QC): 2 Toileting Hygiene (QC): 1 Toilet Transfer (QC): 2 Assessment/Plan Assessment and Plan Assess & Plan/Chief Complaint Assessment: Catastrophic CVA with left sided flaccidity Left facial droop COVID-19 antibody + Bipolar disorder Autism spectrum Urinary retention Preston cath in place consulted Dr Drake Plan: IRF protocol Dr Drake consultation Monitor bowel function Fall risk CBD oil Mehnaz lift Voiding much better on his own Maintain bladder meds Bowel regimen Decreasing pain medication 04/01/20: Voltaren gel for back pain Lortab for pain Mehnaz lift completely no sit-2-stand ability Flaccid left side continues 04/02/20: Patient went to father's today Continue Voltaren gel for back pain Sit to stand no longer an option needs Mehnaz lift 04/03/20: Bowels moved 2 days ago Laxatives ordered Discontinue the Preston catheter and Dr. Matias will monitor closely for retention Completed Augmentin Baclofen and pain medication taken on a real regular basis prone for dependency and addiction potential 04/04/20: Urology management of urinary retention since catheter removed Continue pain management but addiction potential noted Air mattress to prevent skin breakdown Laxatives due to constipation now 04/05/20: Bowels still not moving, supp and Fleets and SSE will be given Decrease pain meds to Q6hrs due to overuse and narcotic bowel noted complications Addiction potential noted Preston cath replaced and Flomax and Urecholine maintained now 04/06/20: Weaned Lortab Baclofen prn is working well BM regimen to continue Preston cath 04/07/20: Baclofen 10mg at night Maintain BM regimen Likely preston cath will be required again 04/08/20: Preston reinserted Labs stable BM regimen 04/09/20: Improvement in spontaneous urination Maintain Flomax and Urecholine Monitor closely 04/10/20: Disposition pending Continue aggressive therapy Cystoscopy Bladder meds 04/11/20: Had Cysto today by Urology Urinalysis is pending Pain pill on rare occasions 04/12/20: Maintain Baclofen Dr. Drake to manage Ecoli UTI Maintain Mehnaz lift In/Out catheter prn 04/13/20: UTI Tx Bactrim Monitor closely 04/14/20: UTI Tx Check labs in am 04/15/20: Radha helping with Hemorrhoids Labs reviewed Baclofen working well Last pain pill was 4 days ago 04/17/20: Laxatives Bladder management Family education 04/18/20: Monitor nausea and vomiting Needs suppository or enema today Monitor closely 04/19/20: Monitor nausea and vomiting Laxatives will be ordered on a more scheduled basis Monitor closely (1) Acute right MCA stroke Status: Acute (2) Facial droop due to cerebrovascular accident (CVA) (3) Bipolar disorder (4) Autism spectrum (5) Urinary retention (6) Preston catheter in place (7) Coronavirus infection, unspecified Status: Chronic (8) Left-sided neglect Status: Acute (9) Dysphasia due to recent cerebrovascular accident (CVA) Status: Acute AIDE GATICA DO Apr 19, 2020 05:53
[2020-04-19 06:10] LABS: BASOPHILS % (AUTO) 0 % (0-10); EOSINOPHILS % (AUTO) 0 % (0-10); HEMATOCRIT 40 % (40-54); HEMOGLOBIN 12.8 G/DL (13.3-17.7); LYMPHOCYTES # (AUTO) 1.6 X 10^3 (1.0-4.0); LYMPHOCYTES % (AUTO) 23 % (12-44); MEAN CORPUSCULAR HEMOGLOBIN 29 PG (25-34); MEAN CORPUSCULAR HGB CONC 32 G/DL (32-36); MEAN CORPUSCULAR VOLUME 91 FL (80-99); MEAN PLATELET VOLUME 10.8 FL (7.4-10.4); MONOCYTES # (AUTO) 0.3 X 10^3 (0.0-1.0); MONOCYTES % (AUTO) 5 % (0-12); NEUTROPHILS # (AUTO) 4.9 X 10^3 (1.8-7.8); NEUTROPHILS % (AUTO) 72 % (42-75); PLATELET COUNT 365 10^3/uL (130-400); RED CELL DISTRIBUTION WIDTH 13.8 % (10.0-14.5); WHITE BLOOD COUNT 6.8 10^3/uL (4.3-11.0)
[2020-04-19 06:25] LABS: ALANINE AMINOTRANSFERASE 28 U/L (0-55); ALBUMIN 4.1 GM/DL (3.2-4.5); ALKALINE PHOSPHATASE 75 U/L (40-136); BILIRUBIN,TOTAL 0.4 MG/DL (0.1-1.0); BUN/CREATININE RATIO 35; CALCIUM 9.5 MG/DL (8.5-10.1); CARBON DIOXIDE 25 MMOL/L (21-32); CHLORIDE 106 MMOL/L (98-107); CREATININE SERUM 0.75 MG/DL (0.60-1.30); GFR ESTIMATED > 60; GLUCOSE 117 MG/DL (70-105); LIPASE 16 U/L (8-78); SODIUM 142 MMOL/L (135-145)
--- NOTE | 2020-04-19 08:55 | Physical Therapy Daily Note ---
PT Daily Note-Current Subjective Patient in bed pre tx, agrees to PT, has no complaints of pain but still has some nausea. Will be co-treating with OT due to poor patient mobility, strength, endurance, sitting and standing balance, left hemiparesis, the need to coordinate UE and LE during activity. Appearance Patient in recliner post tx with nurse call, phone, tray, all needs met. Mental Status Patient Orientation: Person, Place, Situation Transfers SCALE: Activities may be completed with or without assistive devices. 7-Ekjusiliiw-jzrqpck completes the activity by him/herself with no assistance from a helper. 5-Set-up or Clean-up Assistance-helper sets up or cleans up; patient completes activity. [place] assists only prior to or following the activity. 4-Supervision or Touching Assistance-helper provides verbal cues and/or touching/steadying and/or contact guard assistance as patient completes activity. Assistance may be provided throughout the activity or intermittently. 3-Partial/Moderate Assistance-helper does LESS THAN HALF the effort. [place] lifts, holds or supports trunk or limbs, but provides less than half the effort. 2-Substantial/Maximal Assistance-helper does MORE THAN HALF the effort. [place] lifts or holds trunk or limbs and provides more than half the effort. 9-Twbmcserk-fyyiln does ALL the effort. Patient does none of the effort to complete the activity. Or, the assistance of 2 or more helpers is required for the patient to complete the activity. If activity was not attempted, code reason: 7-Patient Refused. 9-Not Applicable-not attempted and the patient did not perform the activity before the current illness, exacerbation or injury. 10-Not Attempted due to Environmental Limitations-(lack of equipment, weather restraints, etc.). 88-Not Attempted due to Medical Conditions or Safety Concerns. Roll Left & Right (QC): 3 Sit to Lying (QC): 3 Lying to Sitting/Side of Bed(Q: 3 Sit to Stand (QC): 3 Chair/Awq-qn-Rtexc Xfer(QC): 3 Transfer to , propel to therapy gym, work on sitting balance and limits of stability with reaching for cones, work on rolling and supine to sit 2 sets of 5, sit to stand 3 sets of 10, stand pivot transfers to the right side 2 sets of 5, transfer to and back to room and transfer to recliner. Treatments WC training, bed mobility and transfer training, sit <-> stand Assessment Current Status: Fair Progress some nausea but kept it under control with rest breaks PT Short Term Goals Short Term Goals Time Frame: Apr 04, 2020 Roll Left & Right: 3 Sit to lyin Lying to sitting on side of be: 3 Sit to stand: 3 Chair/brc-hd-pkczu transfer: 2 PT Senior [employer] Recruiter Goals Skilled Nursing Goals PT Senior [employer] Rec[employer]iter Goals Time Frame: Apr 18, 2020 Roll Left & Right (QC): 3 (Pablo) Sit to Lying (QC): 3 (Pablo) Lying-Sitting on Side/Bed(QC): 3 (Pablo) Sit to Stand (QC): 3 (Pablo) Chair/Ths-uu-[place] Xfer(QC): 3 (Pablo) Toilet Transfer (QC): 3 (Pablo) Car Transfer (QC): 3 (mod A) Does the Patient Walk: No and Walking Goal NOT indicated Walk 10 feet (QC): 88 Walk 50ft with 2 Turns (QC): 88 Walk 150 ft (QC): 88 Walking 10ft on Uneven Surface: 88 1 Step (curb) (QC): 88 4 Steps (QC): 88 12 Steps (QC): 88 Picking up an Object (QC): 88 Does the Pt use WC or Scooter?: Yes Wheel 50 feet with 2 turns (QC: 3 (Pablo) Type: Manual Wheel 150 feet: 3 (Pablo) Type: Manual PT Plan Problem List Problem List: Activity Tolerance, Functional Strength, Safety, Balance, Gait, Transfer, Bed Mobility, ROM Treatment/Plan Treatment Plan: Continue Plan of Care Treatment Plan: Bed Mobility, Education, Functional Activity [place], Functional Strength, Group Therapy, Gait, Safety, Therapeutic Exercise, Transfers Treatment Duration: Apr 18, 2020 Frequency: At least 5 of 7 days/Wk (IRF) Estimated Hrs Per Day: 1.5 hours per day Patient and/or Family Agrees t: Yes Safety Risks/Education Patient Education: Transfer Techniques, Correct Positioning, W/C Management, Safety Issues Teaching Recipient: Patient Teaching Methods: Demonstration, Discussion Response to Teaching: Reinforcement Needed Time/GCodes Time In: 0800 Time Out: 0900 Total Billed Treatment Time: 60 Total Billed Treatment 1 visit FA 60' Co-treated with OT for 60'. PT performed transfers, bed mobility, rolling, supine <-> sit, standing, OT performed UE positioning and safety training during activity, assist with transfers. MARK RYAN PT Apr 19, 2020 08:55
--- NOTE | 2020-04-19 08:58 | Occupational Ther Daily Note ---
OT Current Status-Daily Note Subjective Pt. in bed when OT entered room. No c/o pain this am. Pt. agreeable to therapy. Mental Status/Objective Patient Orientation: Person, Place, Time, Situation ADL-Treatment Therapy Code Descriptions/Definitions Functional [place] Measure: 0=Not Assessed/NA 4=Minimal Assistance 1=Total Assistance 5=Supervision or Setup 2=Maximal Assistance 6=Modified [place] 3=Moderate Assistance 7=Complete IndependenceSCALE: Activities may be completed with or without assistive devices. 4-Pgnmecopth-pwbmlwi completes the activity by him/herself with no assistance from a helper. 5-Set-up or Clean-up Assistance-helper sets up or cleans up; patient completes activity. [place] assists only prior to or following the activity. 4-Supervision or Touching Assistance-helper provides verbal cues and/or touchin g/steadying and/or contact guard assistance as patient completes activity. Assistance may be provided throughout the activity or intermittently. 3-Partial/Moderate Assistance-helper does LESS THAN HALF the effort. [place] lifts, holds or supports trunk or limbs, but provides less than half the effort. 2-Substantial/Maximal Assistance-helper does MORE THAN HALF the effort. [place] lifts or holds trunk or limbs and provides more than half the effort. 0-Iuwizdgri-xducsv does ALL the effort. Patient does none of the effort to complete the activity. Or, the assistance of 2 or more helpers is required for the patient to complete the activity. If activity was not attempted, code reason: 7-Patient Refused. 9-Not Applicable-not attempted and the patient did not perform the activity before the current illness, exacerbation or injury. 10-Not Attempted due to Environmental Limitations-(lack of equipment, weather restraints, etc.). 88-Not Attempted due to Medical Conditions or Safety Concerns. Oral Hygiene (QC): 5 Upper Body Dressing (QC): 3 (Mod A) Lower Body Dressing (QC): 2 (Max A) On/Off Footwear: 1 Co-treat with PT ([id number]), due to the need for 2 skilled clinicians for neuromuscular retraining in transfers, mobility and ADLs. PT focusing on transfers, wheelchair mobility, and LE strength. OT facilitating ADL skills, functional transfers, and UE placement. Declined sponge bath. Pt. agreed to changing clothes this am. He was Max A with LB dressing as he was able to complete bed mobility with Min A to facilitate pulling up pants. Pt. was depend ent for donning tennis shoes. He required VC and min assist for supine- sit EOB transfer. Once seated EOB, pt. able to dress UB using one handed technique with VC for sequencing and mod A. PT entered room for co-treat. PT transferred pt from EOB to w/c, 2nd person for safety due to pt's impulsivity. Pt then transported to bathroom for oral care. Verbal and gestural cues to open toothpaste then assist to hold onto toothette while pt applied toothpaste then pt completed oral care. Other Treatment Pt propelled w/c with minimal assist for steering and verbal cues to look toward left to avoid objects. Pt transferred to therapy mat to work on supine <--> sitting, requiring min A and verbal cues to sequence task. Then working on dynamic sitting balance while reaching in different planes to grasp cones with R UE. Working on squat pivot transfers, pt required visual, physical and verbal cues to understand how to complete (see PT notes for progress). After session, pt sitting in recliner with feet elevated. Call light/phone in reach. All needs met in room. Education OT Patient Education: Modified ADL techniques, Transfer techniques Teaching Recipient: Patient Teaching Methods: Demonstration, Discussion, Audiovisual Response to Teaching: Verbalize Understanding (verbal and visual), Return Demonstration, Reinforcement Needed OT Short Term Goals Short Term Goals Time Frame: Apr 11, 2020 Eatin Oral hygiene: 3 Toileting hygiene: 3 Shower/bathe self: 2 Upper body dressin Lower body dressin Putting on/taking off footwear: 2 OT Prison Goals Prison Goals Time Frame: Apr 25, 2020 Eating (QC): 4 Oral Hygiene (QC): 4 Toileting Hygiene (QC): 3 Shower/Bathe Self (QC): 3 Upper Body Dressing (QC): 4 Lower Body Dressing (QC): 4 On/Off Footwear (QC): 4 Additional Goals: 1-Demonstrate ADL Tasks, 2-Verbalize Understanding, 3- ImproveStrength/[place] 1=Demonstrate adherence to instructed precautions during ADL tasks. 2=Patient will verbalize/demonstrate understanding of assistive devices /modifications for ADL. 3=Patient will improve strength/tolerance for activity to enable patient to perform ADL's. OT Education/Plan Problem List/Assessment Assessment: Decreased Activ Tolerance, Decreased Safety Aware, Decreased UE Strength, Dependent Transfers, Impaired Bed Mobility, Impaired Cognition, Impaired Coordination, Impaired Funct Balance, Impaired I ADL's, Impaired Self- Care Skills, Restricted Funct UE ROM, Visual-Perceptual Deficit Discharge Recommendations Plan/Recommendations: Continue POC Treatment Plan/Plan of Care Patient would benefit from OT for education, treatment and training to promote independence in ADL's, mobility, safety and/or upper extremity function for ADL's. Plan of Care: ADL Retraining, Functional Mobility, UE Funct Exercise/Act, UE Neuromus Re-Ed/Coord, Visual/Perceptual Retrain Treatment Duration: Apr 25, 2020 Frequency: At least 5 of 7 days/Wk (IRF) Estimated Hrs Per Day: 1.5 hours per day Agreement: Yes Rehab Potential: Good Time/GCodes Start Time: 07:30 Stop Time: 09:00 Total Time Billed (hr/min): 90 Billed Treatment Time 1 visit-ADL 3 (45 min) NM 3 (45 min) co-treat with PT 60 min ([id number]), individual 30 min ([id number]) JOSIAH ESCALANTE Apr 19, 2020 08:58
[2020-04-19] MEDS: meTOproloL SUCCINATE 50 MG (TOPROL XL) TAB PO SCH (09:12)
[2020-04-19] MEDS: TAMSULOSIN 0.4 MG (FLOMAX) CAP PO SCH ×2 (09:12→21:18)
[2020-04-19] MEDS: ASPIRIN 325 MG (5 GR) TABLET PO SCH (09:12)
[2020-04-19] MEDS: ONDANSETRON 4 MG (ZOFRAN) ORAL DISSOLVE TAB PO PRN (09:21)
--- NOTE | 2020-04-19 09:25 | Progress Note - Urology ---
Progress Note-Urology Progress Notes/Assess & Plan Progress/Assessment & Plan VOIDING WITH RESIDUAL AND NEED FOR ISC Final Diagnosis URINE RETENTION TIFFANIE WOMACK MD Apr 19, 2020 09:25
[2020-04-19] MEDS: DOCUSATE SODIUM 100 MG (COLACE) CAP PO SCH ×3 (09:27→21:18)
[2020-04-19] MEDS: polyethylene glycoL POWDER 17 GM (MIRALAX) PACK PO SCH ×2 (09:28→21:35)
[2020-04-19] MEDS: WITCH HAZEL(TUCKS) 40 EA JAR TOP SCH ×4 (09:28→21:35)
[2020-04-19] MEDS: SENNA W/DOCUSATE (SENOKOT S) TABLET PO SCH ×3 (09:28→21:18)
[2020-04-19] MEDS: HYDROcodone/APAP 5 MG/325 MG (LORTAB) TAB PO PRN (10:30)
--- NOTE | 2020-04-19 10:51 | NUR ---
"RD ASSESSMENT PMHx: HTN; developmental disorder PT INTERACTION: Pt was awake and pleasant during nutrition follow-up. Pt states he has not been eating well since last assessment. Note avg PO intake 50-75% x3d, per chart review. Pt states issues with nausea and vomiting, but not constipation or diarrhea since last assessment. Note last BM was 04/19, and pt currently on bowel regimen of colace BID; senna BID; and miralax BID, per chart review. ABNORMAL NUTRITION-RELATED LAB VALUES LOW: HIGH: BUN 26; glu 117 Est. kcal needs: 1375 kcal | 15 kcal/kg Est. Pro needs: 73 g Pro | 0.8 g Pro/kg PES STATEMENT: Inadequate oral intake (NI-2.1) related to loss of appetite | nausea | vomiting as evidenced by pt interview | avg PO intake 50-75% x3d INTERVENTION: Continue with current diet order of DYS2 Mechanically Altered diet. Pt may benefit from nutrition supplementation if PO intake declines. Encouraged pt to eat when able. Will continue to follow and reassess as pt needs, intake, and status change. MONITOR/EVALUATE: PO Intake; Plan of Care; Hydration Status; Weight Status; Lab Values Jodi Hassan, MS, RD, LD"
--- NOTE | 2020-04-19 13:53 | Physical Therapy Daily Note ---
PT Daily Note-Current Subjective Patient in bed pre tx, agrees to PT, no complaints of pain. Appearance Patient in bed post tx with nurse call, phone, tray, in room. Mental Status Patient Orientation: Person, Place, Situation Transfers SCALE: Activities may be completed with or without assistive devices. 4-Ouldwqebnk-cjykxxh completes the activity by him/herself with no assistance from a helper. 5-Set-up or Clean-up Assistance-helper sets up or cleans up; patient completes activity. [place] assists only prior to or following the activity. 4-Supervision or Touching Assistance-helper provides verbal cues and/or touching/steadying and/or contact guard assistance as patient completes activity. Assistance may be provided throughout the activity or intermittently. 3-Partial/Moderate Assistance-helper does LESS THAN HALF the effort. [place] lifts, holds or supports trunk or limbs, but provides less than half the effort. 2-Substantial/Maximal Assistance-helper does MORE THAN HALF the effort. [place] lifts or holds trunk or limbs and provides more than half the effort. 0-Bxuxsjrjs-hyqwbh does ALL the effort. Patient does none of the effort to complete the activity. Or, the assistance of 2 or more helpers is required for the patient to complete the activity. If activity was not attempted, code reason: 7-Patient Refused. 9-Not Applicable-not attempted and the patient did not perform the activity before the current illness, exacerbation or injury. 10-Not Attempted due to Environmental Limitations-(lack of equipment, weather restraints, etc.). 88-Not Attempted due to Medical Conditions or Safety Concerns. Exercises Supine Ex: Ankle pumps, Quad Set, Glut sets, Heel Slides, Short Arc Quads, Straight leg raise, Hip abd/add Supine Reps: 20 (RLE) stretching/PROM of LLE in all planes Treatments LE exercise Assessment Current Status: Poor Progress PT Short Term Goals Short Term Goals Time Frame: Apr 04, 2020 Roll Left & Right: 3 Sit to lyin Lying to sitting on side of be: 3 Sit to stand: 3 Chair/bxx-cd-hqbvv transfer: 2 PT Commercial Helicopter Pilot Goals Snf Goals PT Commercial Helicopter Pilot Goals Time Frame: Apr 18, 2020 Roll Left & Right (QC): 3 (Pablo) Sit to Lying (QC): 3 (Pablo) Lying-Sitting on Side/Bed(QC): 3 (Pablo) Sit to Stand (QC): 3 (Pablo) Chair/Wkx-hc-Hhsxl Xfer(QC): 3 (Pablo) Toilet Transfer (QC): 3 (Pablo) Car Transfer (QC): 3 (mod A) Does the Patient Walk: No and Walking Goal NOT indicated Walk 10 feet (QC): 88 Walk 50ft with 2 Turns (QC): 88 Walk 150 ft (QC): 88 Walking 10ft on Uneven Surface: 88 1 Step (curb) (QC): 88 4 Steps (QC): 88 12 Steps (QC): 88 Picking up an Object (QC): 88 Does the Pt use WC or Scooter?: Yes Wheel 50 feet with 2 turns (QC: 3 (Pablo) Type: Manual Wheel 150 feet: 3 (Pablo) Type: Manual PT Plan Problem List Problem List: Activity Tolerance, Functional Strength, Safety, Balance, Gait, Transfer, Bed Mobility, ROM Treatment/Plan Treatment Plan: Continue Plan of Care Treatment Plan: Bed Mobility, Education, Functional Activity [place], Functional Strength, Group Therapy, Gait, Safety, Therapeutic Exercise, Transfers Treatment Duration: Apr 18, 2020 Frequency: At least 5 of 7 days/Wk (IRF) Estimated Hrs Per Day: 1.5 hours per day Patient and/or Family Agrees t: Yes Safety Risks/Education Patient Education: Correct Positioning, Safety Issues Teaching Recipient: Patient Teaching Methods: Demonstration, Discussion Response to Teaching: Reinforcement Needed Time/GCodes Time In: 1330 Time Out: 1345 Total Billed Treatment Time: 15 Total Billed Treatment 1 visit EX MARK HEART PT Apr 19, 2020 13:53
--- NOTE | 2020-04-19 15:03 | Speech Therapy Daily Note ---
Speech Daily Progress Note Subjective Date Seen by Provider: Apr 19, 2020 Time Seen by Provider: 00:30 Patient was resting in his bed watching television when I entered his room. Patient stated he was tired but did participate with therapy. Objective Patient completed word finding tasks with 80% given 215% verbal cues and/or repetitions. Assessment Assessment Current Status: Good Progress Treatment Plan Continue Plan of Care Speech Short Term Goals Short Term Goals Short Term Goals 1) Patient will complete memory tasks related to his daily needs at 90% or greater with minimal cues. 2) Patient will complete safety awareness tasks related to his daily needs at 90% or greater with minimal cues. 3) Patient will complete problem solving tasks related to his daily needs at 90% or greater with minimal cues. 4) Patient will tolerate least restrictive diet level without s/s of aspiration at 90% or greater. 5) Patient/caregiver will utilize compensatory strategies as trained at 90% or greater with minimal cues. Speech Educational Guidance Counselor Goals Educational Guidance Counselor Goals Patient will improve cognitive-communication necessary for safety and daily living tasks with minimal assist. Patient will maintain adequate nutrition/hydration via safe effective swallow function. Speech-Plan Patient/Family Goals Patient/Family Goals: Patient plans on returning to his home upon hospital discharge. Treatment Plan Speech Therapy Treatment Plan: Continue Plan of Care Treatment Duration: Apr 12, 2020 Frequency: 5 times per week Estimated Hrs Per Day: .5 hour per day Rehab Potential: Good Barriers to Learning: Patient's recent CVA Pt/Family Agrees to Plan: Yes Safety Risks/Education Teaching Recipient: Patient, Significant Other Teaching Methods: Demonstration, Discussion Response to Teaching: Verbalize Understanding, Return Demonstration Education Topics Provided: Continued safety with needs in his room Time Speech Therapy Time In: 13:00 Speech Therapy Time Out: 13:30 Total Billed Time: 30 Billed Treatment Time 1 BRIAN Ahuja Apr 19, 2020 15:03
--- NOTE | 2020-04-19 15:48 | NUR ---
CM/SS CONCURRENT DOCUMENTATION Patient's father passed same day as admission to ARU, there are some legal issues/matters unresolved. Partnering with spouse, will seek permission for attorney law clerk to come to unit for completion of documents requiring both patient and spouse presence. Await confirmation of appointment, will seek permission for the visit through proper protocols.
[2020-04-19] MEDS: ENOXAPARIN 40 MG/0.4 ML (LOVENOX) SYR SC SCH (16:37)
[2020-04-19 17:43] VITALS: BP 136/74
[2020-04-19] MEDS: BACLOFEN 10 MG (LIORESAL) TAB PO SCH (21:18)
[2020-04-19] MEDS: SERTRALINE 50 MG (ZOLOFT) TABLET PO SCH (21:18)
--- NOTE | 2020-04-20 04:25 | NUR ---
Patient tried to use the urinal and was unable to go. Bladder scan estimated 228 ml. Will continue to manage.
[2020-04-20 05:06] VITALS: BP 117/68
[2020-04-20] MEDS: BACLOFEN 10 MG (LIORESAL) TAB PO PRN (06:13)
[2020-04-20] MEDS: BETHANECHOL 25 MG (URECHOLINE) TAB PO SCH ×4 (06:13→21:36)
--- NOTE | 2020-04-20 06:30 | NUR ---
Patient straight cathed using sterile technique. 325 ml of clear, light sandi urine obtained. Patient tolerated procedure well.
--- NOTE | 2020-04-20 07:29 | PM&R Progress Note ---
Subjective HPI/CC On Admission Date Seen by Provider: Apr 20, 2020 Time Seen by Provider: 13:15 Subjective/Events-last exam 04/20/2020: Patient slept well last night Urology saw him and thinks everything is going pretty well He only voids about once a day but he does have complete evacuation of the bladder No more nausea and vomiting like yesterday Bowels move yesterday but needs to maintain a good bowel regimen 04/19/20: Had another episode of nausea and vomiting Had two incontinent episodes because of the vomiting Bowels moved and it was large and he became Diaphoretic He's very motivated in therapy Will schedule laxatives 04/18/20: Nauseated with physical therapy again today Vomited yesterday Zofran was given today Bowels moved four days ago will start suppository in fleets No in/out catheter required 04/17/20: Patient required IN/OUT Catheter x2 Ongoing issue with Bladder retention Bowels not moving so will be given meds again Overall doing very well 04/16/20 Preston has been discontinued and voiding well Bladder scan and In and Out Caths if needed Left sided weakness remains Very motivated appears to be depressed currently today Baclofen in the morning really helps him so will continue that Dr Drake placed him on Bactrim for UTI e coli Labs noted Mehnaz lift required Preston cath replaced and will await Urology plan Slept well Checked meds and labs Conferred with RN Reviewed therapy notes Review of Systems General: Fatigue, Malaise Neurological: Weakness, Incoordination Objective Exam Vital Signs Vital Signs Date Time Temp Pulse Resp B/P (MAP) Pulse Ox O2 Delivery O2 Flow Rate FiO2 04/20/20 09:00 Room Air 04/20/20 05:06 36.2 73 20 117/68 (84) 95 Capillary Refill : Less Than 3 Seconds General Appearance: No Apparent Distress, WD/WN, Chronically ill HEENT: PERRL/EOMI, Normal ENT Inspection, Pharynx Normal Neck: Full Range of Motion, Normal Inspection, Non Tender, Supple, Carotid Bruit Respiratory: Chest Non Tender, Lungs Clear, Normal Breath Sounds, No Accessory Muscle Use, No Respiratory Distress Cardiovascular: Regular Rate, Rhythm, No Edema, No Gallop, No JVD, No Murmur, Normal Peripheral Pulses Gastrointestinal: Normal Bowel Sounds, No Organomegaly, No Pulsatile Mass, Non Tender, Soft Back: Normal Inspection, No CVA Tenderness, No Vertebral Tenderness Extremity: Normal Capillary Refill, Normal Inspection, Normal Range of Motion (except left side), Non Tender, No Calf Tenderness, No Pedal Edema Neurologic/Psychiatric: Alert, Oriented x3, No Motor/Sensory Deficits, Normal Mood/Affect, Depressed Affect, Facial Droop (left), Motor Weakness (left sided paresis 0/5 flaccid) Skin: Normal Color, Warm/Dry Lymphatic: No Adenopathy Results/Procedures Lab Patient resulted labs reviewed. FIM Transfers Therapy Code Descriptions/Definitions Functional [place] Measure: 0=Not Assessed/NA 4=Minimal Assistance 1=Total Assistance 5=Supervision or Setup 2=Maximal Assistance 6=Modified [place] 3=Moderate Assistance 7=Complete IndependenceSCALE: Activities may be completed with or without assistive devices. 4-Nnfntahdvy-pcmwayu completes the activity by him/herself with no assistance from a helper. 5-Set-up or Clean-up Assistance-helper sets up or cleans up; patient completes activity. [place] assists only prior to or following the activity. 4-Supervision or Touching Assistance-helper provides verbal cues and/or touching/steadying and/or contact guard assistance as patient completes activity. Assistance may be provided throughout the activity or intermittently. 3-Partial/Moderate Assistance-helper does LESS THAN HALF the effort. [place] lifts, holds or supports trunk or limbs, but provides less than half the effort. 2-Substantial/Maximal Assistance-helper does MORE THAN HALF the effort. [place] lifts or holds trunk or limbs and provides more than half the effort. 6-Mkzvfnzdw-qglylx does ALL the effort. Patient does none of the effort to complete the activity. Or, the assistance of 2 or more helpers is required for the patient to complete the activity. If activity was not attempted, code reason: 7-Patient Refused. 9-Not Applicable-not attempted and the patient did not perform the activity before the current illness, exacerbation or injury. 10-Not Attempted due to Environmental Limitations-(lack of equipment, weather restraints, etc.). 88-Not Attempted due to Medical Conditions or Safety Concerns. Roll Left to Right (QC): 3 Sit to Lying (QC): 3 Sit to Stand (QC): 3 Chair/Dee-zz-Cqorz Xfer(QC): 3 Car Transfer (QC): 1 Gait Training Does the Patient Walk?: Yes Distance: 6'x3 Walk 10 feet (QC): 88 Walk 50 ft with 2 Turns(QC): 88 Walk 150 ft (QC): 88 Walking 10ft/uneven surface-QC: 88 Gait Persons Needed: 3 Gait Assistive Device: Parallel Bars Wheelchair Training Does the Pt Use a Wheelchair?: Yes Distance: 150' Wheel 50 ft with 2 turns (QC): 3 Wheel 150 ft (QC): 3 Type of Wheelchair: Manual Stair Training 1 Step (curb) (QC): 88 4 Steps (QC): 88 12 Steps (QC): 88 Balance Picking up an Object (QC): 88 ADL-Treatment Eating (QC): 5 Oral Hygiene (QC): 5 Bathing Location: L Arm, L Upper Leg, R Upper Leg, Chest, Abdomen, Perineal Area Shower/Bathe Self (QC): 3 Upper Body Dressing (QC): 3 (Mod A) Lower Body Dressing (QC): 2 (Max A) On/Off Footwear (QC): 1 Toileting Hygiene (QC): 1 Toilet Transfer (QC): 2 Assessment/Plan Assessment and Plan Assess & Plan/Chief Complaint Assessment: Catastrophic CVA with left sided flaccidity Left facial droop COVID-19 antibody + Bipolar disorder Autism spectrum Urinary retention Preston cath in place consulted Dr Drake Plan: IRF protocol Dr Drake consultation Monitor bowel function Fall risk CBD oil Mehnaz lift Voiding much better on his own Maintain bladder meds Bowel regimen Decreasing pain medication 04/01/20: Voltaren gel for back pain Lortab for pain Mehnaz lift completely no sit-2-stand ability Flaccid left side continues 04/02/20: Patient went to father's today Continue Voltaren gel for back pain Sit to stand no longer an option needs Mehnaz lift 04/03/20: Bowels moved 2 days ago Laxatives ordered Discontinue the Preston catheter and Dr. Matias will monitor closely for retention Completed Augmentin Baclofen and pain medication taken on a real regular basis prone for dependency and addiction potential 04/04/20: Urology management of urinary retention since catheter removed Continue pain management but addiction potential noted Air mattress to prevent skin breakdown Laxatives due to constipation now 04/05/20: Bowels still not moving, supp and Fleets and SSE will be given Decrease pain meds to Q6hrs due to overuse and narcotic bowel noted complications Addiction potential noted Preston cath replaced and Flomax and Urecholine maintained now 04/06/20: Weaned Lortab Baclofen prn is working well BM regimen to continue Preston cath 04/07/20: Baclofen 10mg at night Maintain BM regimen Likely preston cath will be required again 04/08/20: Preston reinserted Labs stable BM regimen 04/09/20: Improvement in spontaneous urination Maintain Flomax and Urecholine Monitor closely 04/10/20: Disposition pending Continue aggressive therapy Cystoscopy Bladder meds 04/11/20: Had Cysto today by Urology Urinalysis is pending Pain pill on rare occasions 04/12/20: Maintain Baclofen Dr. Drake to manage Ecoli UTI Maintain Mehnaz lift In/Out catheter prn 04/13/20: UTI Tx Bactrim Monitor closely 04/14/20: UTI Tx Check labs in am 04/15/20: Radha helping with Hemorrhoids Labs reviewed Baclofen working well Last pain pill was 4 days ago 04/17/20: Laxatives Bladder management Family education 04/18/20: Monitor nausea and vomiting Needs suppository or enema today Monitor closely 04/19/20: Monitor nausea and vomiting Laxatives will be ordered on a more scheduled basis Monitor closely 04/20/2020: Continue bowel regimen Monitor for urinary retention Aggressive therapy (1) Acute right MCA stroke Status: Acute (2) Facial droop due to cerebrovascular accident (CVA) (3) Bipolar disorder (4) Autism spectrum (5) Urinary retention (6) Preston catheter in place (7) Coronavirus infection, unspecified Status: Chronic (8) Left-sided neglect Status: Acute (9) Dysphasia due to recent cerebrovascular accident (CVA) Status: Acute AIDE GATICA DO Apr 20, 2020 07:29
[2020-04-20] MEDS: TAMSULOSIN 0.4 MG (FLOMAX) CAP PO SCH ×2 (09:14→21:36)
[2020-04-20] MEDS: ASPIRIN 325 MG (5 GR) TABLET PO SCH (09:14)
[2020-04-20] MEDS: meTOproloL SUCCINATE 50 MG (TOPROL XL) TAB PO SCH (09:14)
[2020-04-20] MEDS: SENNA W/DOCUSATE (SENOKOT S) TABLET PO SCH ×2 (09:14→21:36)
[2020-04-20] MEDS: polyethylene glycoL POWDER 17 GM (MIRALAX) PACK PO SCH ×2 (09:14→21:44)
[2020-04-20] MEDS: DOCUSATE SODIUM 100 MG (COLACE) CAP PO SCH ×2 (09:14→21:36)
[2020-04-20] MEDS: WITCH HAZEL(TUCKS) 40 EA JAR TOP SCH ×4 (10:00→21:43)
--- NOTE | 2020-04-20 10:17 | Progress Note - Urology ---
Progress Note-Urology Progress Notes/Assess & Plan Progress/Assessment & Plan CONTINUE DOING [place] Final Diagnosis URINE RETENTION TIFFANIE WOMACK MD Apr 20, 2020 10:17
--- NOTE | 2020-04-20 11:39 | Physical Therapy Daily Note ---
PT Daily Note-Current Subjective Pt in bed upon arrival. Pt positioned crooked and extremely low in bed. Pt agrees to PT tx. Pain Numeric Pain Scale: 0-No Pain Location: No Pain Reported Mental Status Patient Orientation: Person, Place Transfers SCALE: Activities may be completed with or without assistive devices. 9-Sklvajrcyu-vkroejr completes the activity by him/herself with no assistance from a helper. 5-Set-up or Clean-up Assistance-helper sets up or cleans up; patient completes activity. [place] assists only prior to or following the activity. 4-Supervision or Touching Assistance-helper provides verbal cues and/or touching/steadying and/or contact guard assistance as patient completes activity. Assistance may be provided throughout the activity or intermittently. 3-Partial/Moderate Assistance-helper does LESS THAN HALF the effort. [place] lifts, holds or supports trunk or limbs, but provides less than half the effort. 2-Substantial/Maximal Assistance-helper does MORE THAN HALF the effort. [place] lifts or holds trunk or limbs and provides more than half the effort. 5-Lgdgbhpfu-cowhho does ALL the effort. Patient does none of the effort to complete the activity. Or, the assistance of 2 or more helpers is required for the patient to complete the activity. If activity was not attempted, code reason: 7-Patient Refused. 9-Not Applicable-not attempted and the patient did not perform the activity before the current illness, exacerbation or injury. 10-Not Attempted due to Environmental Limitations-(lack of equipment, weather restraints, etc.). 88-Not Attempted due to Medical Conditions or Safety Concerns. Exercises Supine Ex: Ankle pumps, Heel Slides, Short Arc Quads, Straight leg raise, Hip abd/add Supine Reps: 15 Treatments RN assisted w/ repositioning pt. Pt rolls to the left w/ [place]; pt rolls to the right w/ MaxA. Pt completes supine ex w/ RLE and SUGAR CANE GROWER completes PROM w/ LLE. Pt in bed w/ call light and bedside table w/in reach and all needs met, at end of tx. Assessment Current Status: Fair Progress Pt requires VC's to complete ex correctly. PT Short Term Goals Short Term Goals Time Frame: Apr 04, 2020 Roll Left & Right: 3 Sit to lyin Lying to sitting on side of be: 3 Sit to stand: 3 Chair/pck-rj-kmgeb transfer: 2 PT Assisted Goals Assisted Goals PT Furniture Finisher Helper Goals Time Frame: Apr 18, 2020 Roll Left & Right (QC): 3 (Pablo) Sit to Lying (QC): 3 (Pablo) Lying-Sitting on Side/Bed(QC): 3 (Pablo) Sit to Stand (QC): 3 (Pablo) Chair/Vfi-by-Cssvl Xfer(QC): 3 (Pablo) Toilet Transfer (QC): 3 (Pablo) Car Transfer (QC): 3 (mod A) Does the Patient Walk: No and Walking Goal NOT indicated Walk 10 feet (QC): 88 Walk 50ft with 2 Turns (QC): 88 Walk 150 ft (QC): 88 Walking 10ft on Uneven Surface: 88 1 Step (curb) (QC): 88 4 Steps (QC): 88 12 Steps (QC): 88 Picking up an Object (QC): 88 Does the Pt use WC or Scooter?: Yes Wheel 50 feet with 2 turns (QC: 3 (Pablo) Type: Manual Wheel 150 feet: 3 (Pablo) Type: Manual PT Plan Problem List Problem List: Functional Strength, Safety, Bed Mobility Treatment/Plan Treatment Plan: Continue Plan of Care Treatment Plan: Bed Mobility, Education, Functional Activity [place], Functional Strength, Group Therapy, Gait, Safety, Therapeutic Exercise, Transfers Treatment Duration: Apr 18, 2020 Frequency: At least 5 of 7 days/Wk (IRF) Estimated Hrs Per Day: 1.5 hours per day Patient and/or Family Agrees t: Yes Safety Risks/Education Patient Education: Correct Positioning Teaching Recipient: Patient Teaching Methods: Discussion Response to Teaching: Reinforcement Needed Time/GCodes Time In: 820 Time Out: 835 Total Billed Treatment Time: 15 Total Billed Treatment 1, Ex (15m) TAMMIE HANCOCK SUGAR CANE GROWER Apr 20, 2020 11:39
[2020-04-20] MEDS: ENOXAPARIN 40 MG/0.4 ML (LOVENOX) SYR SC SCH (16:50)
[2020-04-20 18:00] VITALS: BP 114/49
[2020-04-20] MEDS: BACLOFEN 10 MG (LIORESAL) TAB PO SCH (21:36)
[2020-04-20] MEDS: SERTRALINE 50 MG (ZOLOFT) TABLET PO SCH (21:36)
[2020-04-21 05:09] VITALS: BP 126/73
[2020-04-21] MEDS: BETHANECHOL 25 MG (URECHOLINE) TAB PO SCH ×4 (06:02→21:24)
[2020-04-21] MEDS: SENNA W/DOCUSATE (SENOKOT S) TABLET PO SCH ×2 (08:50→21:24)
[2020-04-21] MEDS: polyethylene glycoL POWDER 17 GM (MIRALAX) PACK PO SCH ×2 (08:50→21:25)
[2020-04-21] MEDS: meTOproloL SUCCINATE 50 MG (TOPROL XL) TAB PO SCH (08:50)
[2020-04-21] MEDS: BACLOFEN 10 MG (LIORESAL) TAB PO PRN (08:51)
[2020-04-21] MEDS: DOCUSATE SODIUM 100 MG (COLACE) CAP PO SCH ×2 (08:51→21:24)
[2020-04-21] MEDS: TAMSULOSIN 0.4 MG (FLOMAX) CAP PO SCH ×2 (08:51→21:24)
[2020-04-21] MEDS: ASPIRIN 325 MG (5 GR) TABLET PO SCH (08:51)
[2020-04-21] MEDS: WITCH HAZEL(TUCKS) 40 EA JAR TOP SCH ×4 (09:26→21:25)
--- NOTE | 2020-04-21 09:49 | PM&R Progress Note ---
Subjective HPI/CC On Admission Date Seen by Provider: Apr 21, 2020 Time Seen by Provider: 12:30 Subjective/Events-last exam 04/21/20: Smearing BM so will place on commode to see if he can have a BM c/o urination with dysuria so will monitor that closely Multiple caths recently increased risk for UTI 04/20/2020: Patient slept well last night Urology saw him and thinks everything is going pretty well He only voids about once a day but he does have complete evacuation of the bladder No more nausea and vomiting like yesterday Bowels move yesterday but needs to maintain a good bowel regimen 04/19/20: Had another episode of nausea and vomiting Had two incontinent episodes because of the vomiting Bowels moved and it was large and he became Diaphoretic He's very motivated in therapy Will schedule laxatives 04/18/20: Nauseated with physical therapy again today Vomited yesterday Zofran was given today Bowels moved four days ago will start suppository in fleets No in/out catheter required 04/17/20: Patient required IN/OUT Catheter x2 Ongoing issue with Bladder retention Bowels not moving so will be given meds again Overall doing very well 04/16/20 Preston has been discontinued and voiding well Bladder scan and In and Out Caths if needed Left sided weakness remains Very motivated appears to be depressed currently today Baclofen in the morning really helps him so will continue that Dr Drake placed him on Bactrim for UTI e coli Labs noted Mehnaz lift required Preston cath replaced and will await Urology plan Slept well Checked meds and labs Conferred with RN Reviewed therapy notes Review of Systems General: Fatigue, Malaise Genitourinary: Dysuria Neurological: Weakness Objective Exam Vital Signs Vital Signs Date Time Temp Pulse Resp B/P (MAP) Pulse Ox O2 Delivery O2 Flow Rate FiO2 04/21/20 18:00 36.0 70 18 127/66 (86) 99 Room Air Capillary Refill : Less Than 3 Seconds General Appearance: No Apparent Distress, WD/WN, Chronically ill HEENT: PERRL/EOMI, Normal ENT Inspection, Pharynx Normal Neck: Full Range of Motion, Normal Inspection, Non Tender, Supple, Carotid Bruit Respiratory: Chest Non Tender, Lungs Clear, Normal Breath Sounds, No Accessory Muscle Use, No Respiratory Distress Cardiovascular: Regular Rate, Rhythm, No Edema, No Gallop, No JVD, No Murmur, Normal Peripheral Pulses Gastrointestinal: Normal Bowel Sounds, No Organomegaly, No Pulsatile Mass, Non Tender, Soft Back: Normal Inspection, No CVA Tenderness, No Vertebral Tenderness Extremity: Normal Capillary Refill, Normal Inspection, Normal Range of Motion (except left side), Non Tender, No Calf Tenderness, No Pedal Edema Neurologic/Psychiatric: Alert, Oriented x3, No Motor/Sensory Deficits, Normal Mood/Affect, Depressed Affect, Facial Droop (left), Motor Weakness (left sided paresis 0/5 flaccid) Skin: Normal Color, Warm/Dry Lymphatic: No Adenopathy Results/Procedures Lab Patient resulted labs reviewed. FIM Transfers Therapy Code Descriptions/Definitions Functional [place] Measure: 0=Not Assessed/NA 4=Minimal Assistance 1=Total Assistance 5=Supervision or Setup 2=Maximal Assistance 6=Modified [place] 3=Moderate Assistance 7=Complete IndependenceSCALE: Activities may be completed with or without assistive devices. 8-Vjabzahygz-ioxhvxy completes the activity by him/herself with no assistance from a helper. 5-Set-up or Clean-up Assistance-helper sets up or cleans up; patient completes activity. [place] assists only prior to or following the activity. 4-Supervision or Touching Assistance-helper provides verbal cues and/or touching/steadying and/or contact guard assistance as patient completes activity. Assistance may be provided throughout the activity or intermittently. 3-Partial/Moderate Assistance-helper does LESS THAN HALF the effort. [place] lifts, holds or supports trunk or limbs, but provides less than half the effort. 2-Substantial/Maximal Assistance-helper does MORE THAN HALF the effort. [place] lifts or holds trunk or limbs and provides more than half the effort. 1-Qvfsekmmp-ljgpnj does ALL the effort. Patient does none of the effort to complete the activity. Or, the assistance of 2 or more helpers is required for the patient to complete the activity. If activity was not attempted, code reason: 7-Patient Refused. 9-Not Applicable-not attempted and the patient did not perform the activity before the current illness, exacerbation or injury. 10-Not Attempted due to Environmental Limitations-(lack of equipment, weather restraints, etc.). 88-Not Attempted due to Medical Conditions or Safety Concerns. Roll Left to Right (QC): 3 Sit to Lying (QC): 3 Sit to Stand (QC): 3 Chair/Zqk-rg-Kuysw Xfer(QC): 3 Car Transfer (QC): 1 Gait Training Does the Patient Walk?: Yes Distance: 6'x3 Walk 10 feet (QC): 88 Walk 50 ft with 2 Turns(QC): 88 Walk 150 ft (QC): 88 Walking 10ft/uneven surface-QC: 88 Gait Persons Needed: 3 Gait Assistive Device: Parallel Bars Wheelchair Training Does the Pt Use a Wheelchair?: Yes Distance: 150' Wheel 50 ft with 2 turns (QC): 3 Wheel 150 ft (QC): 3 Type of Wheelchair: Manual Stair Training 1 Step (curb) (QC): 88 4 Steps (QC): 88 12 Steps (QC): 88 Balance Picking up an Object (QC): 88 ADL-Treatment Eating (QC): 5 Oral Hygiene (QC): 5 Bathing Location: L Arm, L Upper Leg, R Upper Leg, Chest, Abdomen, Perineal Area Shower/Bathe Self (QC): 3 Upper Body Dressing (QC): 3 (Mod A) Lower Body Dressing (QC): 2 (Max A) On/Off Footwear (QC): 1 Toileting Hygiene (QC): 1 Toilet Transfer (QC): 2 Assessment/Plan Assessment and Plan Assess & Plan/Chief Complaint Assessment: Catastrophic CVA with left sided flaccidity Left facial droop COVID-19 antibody + Bipolar disorder Autism spectrum Urinary retention Preston cath in place consulted Dr Drake Plan: IRF protocol Dr Drake consultation Monitor bowel function Fall risk CBD oil Mehnaz lift Voiding much better on his own Maintain bladder meds Bowel regimen Decreasing pain medication 04/01/20: Voltaren gel for back pain Lortab for pain Mehnaz lift completely no sit-2-stand ability Flaccid left side continues 04/02/20: Patient went to father's today Continue Voltaren gel for back pain Sit to stand no longer an option needs Mehnaz lift 04/03/20: Bowels moved 2 days ago Laxatives ordered Discontinue the Preston catheter and Dr. Matias will monitor closely for retention Completed Augmentin Baclofen and pain medication taken on a real regular basis prone for dependency and addiction potential 04/04/20: Urology management of urinary retention since catheter removed Continue pain management but addiction potential noted Air mattress to prevent skin breakdown Laxatives due to constipation now 04/05/20: Bowels still not moving, supp and Fleets and SSE will be given Decrease pain meds to Q6hrs due to overuse and narcotic bowel noted complications Addiction potential noted Preston cath replaced and Flomax and Urecholine maintained now 04/06/20: Weaned Lortab Baclofen prn is working well BM regimen to continue Preston cath 04/07/20: Baclofen 10mg at night Maintain BM regimen Likely preston cath will be required again 04/08/20: Preston reinserted Labs stable BM regimen 04/09/20: Improvement in spontaneous urination Maintain Flomax and Urecholine Monitor closely 04/10/20: Disposition pending Continue aggressive therapy Cystoscopy Bladder meds 04/11/20: Had Cysto today by Urology Urinalysis is pending Pain pill on rare occasions 04/12/20: Maintain Baclofen Dr. Drake to manage Ecoli UTI Maintain Mehnaz lift In/Out catheter prn 04/13/20: UTI Tx Bactrim Monitor closely 04/14/20: UTI Tx Check labs in am 04/15/20: Radha helping with Hemorrhoids Labs reviewed Baclofen working well Last pain pill was 4 days ago 04/17/20: Laxatives Bladder management Family education 04/18/20: Monitor nausea and vomiting Needs suppository or enema today Monitor closely 04/19/20: Monitor nausea and vomiting Laxatives will be ordered on a more scheduled basis Monitor closely 04/20/2020: Continue bowel regimen Monitor for urinary retention Aggressive therapy 04/21/20: Monitor dysuria Monitor labs BM regimen (1) Acute right MCA stroke Status: Acute (2) Facial droop due to cerebrovascular accident (CVA) (3) Bipolar disorder (4) Autism spectrum (5) Urinary retention (6) Preston catheter in place (7) Coronavirus infection, unspecified Status: Chronic (8) Left-sided neglect Status: Acute (9) Dysphasia due to recent cerebrovascular accident (CVA) Status: Acute AIDE GATICA DO Apr 21, 2020 09:49
[2020-04-21] MEDS: PATCH REMOVAL TP SCH (11:32)
[2020-04-21] MEDS: ENOXAPARIN 40 MG/0.4 ML (LOVENOX) SYR SC SCH (16:46)
[2020-04-21 18:00] VITALS: BP 127/66
[2020-04-21] MEDS: SERTRALINE 50 MG (ZOLOFT) TABLET PO SCH (21:24)
[2020-04-21] MEDS: BACLOFEN 10 MG (LIORESAL) TAB PO SCH (21:24)
[2020-04-22 05:24] LABS: BASOPHILS % (AUTO) 0 % (0-10); EOSINOPHILS # (AUTO) 0.1 10^3/uL (0.0-0.3); EOSINOPHILS % (AUTO) 2 % (0-10); HEMATOCRIT 37 % (40-54); LYMPHOCYTES # (AUTO) 1.9 X 10^3 (1.0-4.0); LYMPHOCYTES % (AUTO) 31 % (12-44); MEAN CORPUSCULAR HEMOGLOBIN 30 PG (25-34); MEAN CORPUSCULAR HGB CONC 33 G/DL (32-36); MEAN CORPUSCULAR VOLUME 90 FL (80-99); MEAN PLATELET VOLUME 10.7 FL (7.4-10.4); MONOCYTES # (AUTO) 0.3 X 10^3 (0.0-1.0); MONOCYTES % (AUTO) 5 % (0-12); NEUTROPHILS # (AUTO) 3.8 X 10^3 (1.8-7.8); NEUTROPHILS % (AUTO) 62 % (42-75); PLATELET COUNT 270 10^3/uL (130-400); RED CELL DISTRIBUTION WIDTH 13.2 % (10.0-14.5); WHITE BLOOD COUNT 6.1 10^3/uL (4.3-11.0)
[2020-04-22 05:38] LABS: ALBUMIN 3.9 GM/DL (3.2-4.5)
[2020-04-22 05:39] LABS: CHLORIDE 106 MMOL/L (98-107); POTASSIUM 4.1 MMOL/L (3.6-5.0); SODIUM 140 MMOL/L (135-145)
[2020-04-22 05:40] LABS: CALCIUM 9.2 MG/DL (8.5-10.1)
[2020-04-22 05:41] LABS: GLUCOSE 101 MG/DL (70-105); TOTAL PROTEIN 6.9 GM/DL (6.4-8.2)
[2020-04-22 05:42] VITALS: BP 128/70
[2020-04-22 05:42] LABS: CARBON DIOXIDE 25 MMOL/L (21-32)
[2020-04-22 05:43] LABS: BILIRUBIN,TOTAL 0.5 MG/DL (0.1-1.0)
[2020-04-22 05:45] LABS: ALKALINE PHOSPHATASE 67 U/L (40-136); CREATININE SERUM 0.75 MG/DL (0.60-1.30); GFR ESTIMATED > 60
[2020-04-22 05:46] LABS: BUN/CREATININE RATIO 29
[2020-04-22 05:48] LABS: ALANINE AMINOTRANSFERASE 25 U/L (0-55)
[2020-04-22] MEDS: BETHANECHOL 25 MG (URECHOLINE) TAB PO SCH ×4 (06:03→21:27)
[2020-04-22] MEDS: BACLOFEN 10 MG (LIORESAL) TAB PO PRN (06:03)
--- NOTE | 2020-04-22 06:30 | PM&R Progress Note ---
Subjective HPI/CC On Admission Date Seen by Provider: Apr 22, 2020 Time Seen by Provider: 09:30 Subjective/Events-last exam 04/22/20: Catheter was required today, removing 450 CCs No pain is reported Overall participating in therapy No falls Using mehnaz lifts 04/21/20: Smearing BM so will place on commode to see if he can have a BM c/o urination with dysuria so will monitor that closely Multiple caths recently increased risk for UTI 04/20/2020: Patient slept well last night Urology saw him and thinks everything is going pretty well He only voids about once a day but he does have complete evacuation of the bladder No more nausea and vomiting like yesterday Bowels move yesterday but needs to maintain a good bowel regimen 04/19/20: Had another episode of nausea and vomiting Had two incontinent episodes because of the vomiting Bowels moved and it was large and he became Diaphoretic He's very motivated in therapy Will schedule laxatives 04/18/20: Nauseated with physical therapy again today Vomited yesterday Zofran was given today Bowels moved four days ago will [facility] supp[facility] No in/out catheter required 04/17/20: Patient required IN/OUT Catheter x2 Ongoing issue with Bladder retention Bowels not moving so will be given meds again Overall doing very well 04/16/20 Preston has been discontinued and voiding well Bladder scan and In and Out Caths if needed Left sided weakness remains Very motivated appears to be depressed currently today Baclofen in the morning really helps him so will continue that Dr Drake placed him on Bactrim for UTI e coli Labs noted Mehnaz lift required Preston cath replaced and will await Urology plan Slept well Checked meds and labs Conferred with RN Reviewed therapy notes Review of Systems General: Fatigue, Malaise Neurological: Weakness Objective Exam Vital Signs Vital Signs Date Time Temp Pulse Resp B/P (MAP) Pulse Ox O2 Delivery O2 Flow Rate FiO2 04/22/20 16:45 36.4 65 18 113/65 (81) 99 Room Air Capillary Refill : Less Than 3 Seconds General Appearance: No Apparent Distress, WD/WN, Chronically ill HEENT: PERRL/EOMI, Normal ENT Inspection, Pharynx Normal Neck: Full Range of Motion, Normal Inspection, Non Tender, Supple, Carotid Bruit Respiratory: Chest Non Tender, Lungs Clear, Normal Breath Sounds, No Accessory Muscle Use, No Respiratory Distress Cardiovascular: Regular Rate, Rhythm, No Edema, No Gallop, No JVD, No Murmur, Normal Peripheral Pulses Gastrointestinal: Normal Bowel Sounds, No Organomegaly, No Pulsatile Mass, Non Tender, Soft Back: Normal Inspection, No CVA Tenderness, No Vertebral Tenderness Extremity: Normal Capillary Refill, Normal Inspection, Normal Range of Motion (except left side), Non Tender, No Calf Tenderness, No Pedal Edema Neurologic/Psychiatric: Alert, Oriented x3, No Motor/Sensory Deficits, Normal Mood/Affect, Depressed Affect, Facial Droop (left), Motor Weakness (left sided p aresis 0/5 flaccid) Skin: Normal Color, Warm/Dry Lymphatic: No Adenopathy Results/Procedures Lab Laboratory Tests 04/22/20 05:10 Patient resulted labs reviewed. FIM Transfers Therapy Code Descriptions/Definitions Functional [place] Measure: 0=Not Assessed/NA 4=Minimal Assistance 1=Total Assistance 5=Supervision or Setup 2=Maximal Assistance 6=Modified [place] 3=Moderate Assistance 7=Complete IndependenceSCALE: Activities may be completed with or without assistive devices. 2-Cmdcexeehc-xtnjlml completes the activity by him/herself with no assistance from a helper. 5-Set-up or Clean-up Assistance-helper sets up or cleans up; patient completes activity. [place] assists only prior to or following the activity. 4-Supervision or Touching Assistance-helper provides verbal cues and/or touching/steadying and/or contact guard assistance as patient completes activity. Assistance may be provided throughout the activity or intermittently. 3-Partial/Moderate Assistance-helper does LESS THAN HALF the effort. [place] lifts, holds or supports trunk or limbs, but provides less than half the effort. 2-Substantial/Maximal Assistance-helper does MORE THAN HALF the effort. [place] lifts or holds trunk or limbs and provides more than half the effort. 7-Cdksmgmvq-ammmfw does ALL the effort. Patient does none of the effort to complete the activity. Or, the assistance of 2 or more helpers is required for the patient to complete the activity. If activity was not attempted, code reason: 7-Patient Refused. 9-Not Applicable-not attempted and the patient did not perform the activity before the current illness, exacerbation or injury. 10-Not Attempted due to Environmental Limitations-(lack of equipment, weather restraints, etc.). 88-Not Attempted due to Medical Conditions or Safety Concerns. Roll Left to Right (QC): 3 Sit to Lying (QC): 3 Sit to Stand (QC): 3 Chair/Pmg-ue-[place] Xfer(QC): 3 Car Transfer (QC): 1 Gait Training Does the Patient Walk?: Yes Distance: 6'x3 Walk 10 feet (QC): 88 Walk 50 ft with 2 Turns(QC): 88 Walk 150 ft (QC): 88 Walking 10ft/uneven surface-QC: 88 Gait Persons Needed: 3 Gait Assistive Device: Parallel Bars Wheelchair Training Does the Pt Use a Wheelchair?: Yes Distance: 150' Wheel 50 ft with 2 turns (QC): 3 Wheel 150 ft (QC): 3 Type of Wheelchair: Manual Stair Training 1 Step (curb) (QC): 88 4 Steps (QC): 88 12 Steps (QC): 88 Balance Picking up an Object (QC): 88 ADL-Treatment Eating (QC): 5 Oral Hygiene (QC): 5 Bathing Location: L Arm, L Upper Leg, R Upper Leg, Chest, Abdomen, Perineal Area Shower/Bathe Self (QC): 3 Upper Body Dressing (QC): 3 (Mod A) Lower Body Dressing (QC): 2 (Max A) On/Off Footwear (QC): 1 Toileting Hygiene (QC): 1 Toilet Transfer (QC): 2 Assessment/Plan Assessment and Plan Assess & Plan/Chief Complaint Assessment: Catastrophic CVA with left sided flaccidity Left facial droop COVID-19 antibody + Bipolar disorder Autism spectrum Urinary retention Preston cath in place consulted Dr Drake Plan: IRF protocol Dr Drake consultation Monitor bowel function Fall risk CBD oil Mehnaz lift Voiding much better on his own Maintain bladder meds Bowel regimen Decreasing pain medication 04/01/20: Voltaren gel for back pain Lortab for pain Mehnaz lift completely no sit-2-stand ability Flaccid left side continues 04/02/20: Patient went to father's today Continue Voltaren gel for back pain Sit to stand no longer an option needs Mehnaz lift 04/03/20: Bowels moved 2 days ago Laxatives ordered Discontinue the Preston catheter and Dr. Matias will monitor closely for retention Completed Augmentin Baclofen and pain medication taken on a real regular basis prone for dependency and addiction potential 04/04/20: Urology management of urinary retention since catheter removed Continue pain management but addiction potential noted Air mattress to prevent skin breakdown Laxatives due to constipation now 04/05/20: Bowels still not moving, supp and Fleets and SSE will be given Decrease pain meds to Q6hrs due to overuse and narcotic bowel noted complications Addiction potential noted Preston cath replaced and Flomax and Urecholine maintained now 04/06/20: Weaned Lortab Baclofen prn is working well BM regimen to continue Preston cath 04/07/20: Baclofen 10mg at night Maintain BM regimen Likely preston cath will be required again 04/08/20: Preston reinserted Labs stable BM regimen 04/09/20: Improvement in spontaneous urination Maintain Flomax and Urecholine Monitor closely 04/10/20: Disposition pending Continue aggressive therapy Cystoscopy Bladder meds 04/11/20: Had Cysto today by Urology Urinalysis is pending Pain pill on rare occasions 04/12/20: Maintain Baclofen Dr. Drake to manage Ecoli UTI Maintain Mehnaz lift In/Out catheter prn 04/13/20: UTI Tx Bactrim Monitor closely 04/14/20: UTI Tx Check labs in am 04/15/20: Radha helping with Hemorrhoids Labs reviewed Baclofen working well Last pain pill was 4 days ago 04/17/20: Laxatives Bladder management Family education 04/18/20: Monitor nausea and vomiting Needs suppository or enema today Monitor closely 04/19/20: Monitor nausea and vomiting Laxatives will be ordered on a more scheduled basis Monitor closely 04/20/2020: Continue bowel regimen Monitor for urinary retention Aggressive therapy 04/21/20: Monitor dysuria Monitor labs BM regimen 04/22/20: Catheter as needed for retention Labs reviewed all normal Continue aggressive treatment (1) Acute right MCA stroke Status: Acute (2) Facial droop due to cerebrovascular accident (CVA) (3) Bipolar disorder (4) Autism spectrum (5) Urinary retention (6) Preston catheter in place (7) Coronavirus infection, unspecified Status: Chronic (8) Left-sided neglect Status: Acute (9) Dysphasia due to recent cerebrovascular accident (CVA) Status: Acute AIDE GATICA DO Apr 22, 2020 06:30
--- NOTE | 2020-04-22 06:38 | NUR ---
Bladder scan estimated 469 ml of urine. Patient tried to void on his own for twenty minutes. Patient unable to void on his own. Patient straight cathed using sterile technique. 400 ml of clear, lamber urine obtained. Patient tolerated procedure well.
--- NOTE | 2020-04-22 08:36 | Occupational Ther Daily Note ---
OT Current Status-Daily Note Subjective Pt alert, lying in bed. Pt agrees to therapy. No c/o pain until movement of L UE. Applied medicated ointment for pain relief. Mental Status/Objective Patient Orientation: Person, Place, Time, Situation Attachments: Other-See Comments ADL-Treatment Pt declined sponge bath and changing clothing. Supine to EOB-verbal cues to sequence task, mod A to stay on L side while pushing to sit, pushed to sit with min A and verbal cues, sat EOB with SBA. Min A x1 toward R side with verbal cues for sequence and assist by 2nd person for safety due to pt's impulsivity. Max A to don/doff shoes and socks. Pt able to complete oral care with minimal set up and verbal cues to remember strategies. Therapy Code Descriptions/Definitions Functional [place] Measure: 0=Not Assessed/NA 4=Minimal Assistance 1=Total Assistance 5=Supervision or Setup 2=Maximal Assistance 6=Modified [place] 3=Moderate Assistance 7=Complete IndependenceSCALE: Activities may be completed with or without assistive devices. 8-Bhusyvcczi-qyommgo completes the activity by him/herself with no assistance from a helper. 5-Set-up or Clean-up Assistance-helper sets up or cleans up; patient completes activity. [place] assists only prior to or following the activity. 4-Supervision or Touching Assistance-helper provides verbal cues and/or touching/steadying and/or contact guard assistance as patient completes activity. Assistance may be provided throughout the activity or intermittently. 3-Partial/Moderate Assistance-helper does LESS THAN HALF the effort. [place] lifts, holds or supports trunk or limbs, but provides less than half the effort. 2-Substantial/Maximal Assistance-helper does MORE THAN HALF the effort. [place] lifts or holds trunk or limbs and provides more than half the effort. 0-Yrsjkydka-bfhqcl does ALL the effort. Patient does none of the effort to complete the activity. Or, the assistance of 2 or more helpers is required for the patient to complete the activity. If activity was not attempted, code reason: 7-Patient Refused. 9-Not Applicable-not attempted and the patient did not perform the activity before the current illness, exacerbation or injury. 10-Not Attempted due to Environmental Limitations-(lack of equipment, weather restraints, etc.). 88-Not Attempted due to Medical Conditions or Safety Concerns. Eating (QC): 5 Oral Hygiene (QC): 5 Other Treatment 1st treatment-Pt required verbal and physical cues to watch for objects on L side while propelling w/c by self. Massage to L UE, pain with finger extension at forearm. No intentional movement noted in L UE, reflexive and tone noted. Arm bike completed to focus on B UE continuity due to L UE impaired muscle function. No intentional movement noted during arm bike. Manual stabilization of L shldr to protect and decrease pain with movement. After session, pt lying in bed with call light/phone in reach. All needs met in room. 2nd eoecygvic-Ok-bdfbg with PT ([id number]), skills of 2 clinicians required for skilled instructions for neuromuscular retraining, transfers, standing (dynamic/static) and mobility. PT working on transfers, w/c mobility and standing. OT working on functional transfers, standing with B UE placement. See PT notes for progress on standing and transfers. After therapy, pt sitting in recliner with call light/phone in reach. All needs met in room. Education OT Patient Education: Modified ADL techniques, Transfer techniques Teaching Recipient: Patient Teaching Methods: Demonstration, Discussion Response to Teaching: Return Demonstration, Reinforcement Needed OT Short Term Goals Short Term Goals Time Frame: Apr 11, 2020 Eatin Oral hygiene: 3 Toileting hygiene: 3 Shower/bathe self: 2 Upper body dressin Lower body dressin Putting on/taking off footwear: 2 OT Nursing Home Goals Nursing Home Goals Time Frame: Apr 25, 2020 Eating (QC): 4 Oral Hygiene (QC): 4 Toileting Hygiene (QC): 3 Shower/Bathe Self (QC): 3 Upper Body Dressing (QC): 4 Lower Body Dressing (QC): 4 On/Off Footwear (QC): 4 Additional Goals: 1-Demonstrate ADL Tasks, 2-Verbalize Understanding, 3- ImproveStrength/[place] 1=Demonstrate adherence to instructed precautions during ADL tasks. 2=Patient will verbalize/demonstrate understanding of assistive devices/modifications for ADL. 3=Patient will improve strength/tolerance for activity to enable patient to perform ADL's. OT Education/Plan Problem List/Assessment Assessment: Decreased Safety Aware, Decreased UE Strength, Dependent Transfers, Impaired Bed Mobility, Impaired Cognition, Impaired Coordination, Impaired Funct Balance, Impaired I ADL's, Impaired Self-Care Skills, Restricted Funct UE ROM, Visual-Perceptual Deficit Discharge Recommendations Plan/Recommendations: Continue POC Therapy Discharge Recommendati: Home & Family Treatment Plan/Plan of Care Patient would benefit from OT for education, treatment and training to promote independence in ADL's, mobility, safety and/or upper extremity function for ADL's. Plan of Care: ADL Retraining, Functional Mobility, UE Funct Exercise/Act, UE Neuromus Re-Ed/Coord, Visual/Perceptual Retrain Treatment Duration: Apr 25, 2020 Frequency: At least 5 of 7 days/Wk (IRF) Estimated Hrs Per Day: 1.5 hours per day Agreement: Yes Rehab Potential: Good Time/GCodes Start Time: 07:15 ([id number]) Stop Time: 12:00 ([id number]) Total Time Billed (hr/min): 75 Billed Treatment Time 1 visit-ADL 2 (25 min) NM 1 (20 min) 1 visit-NM 2 (30 min) co-treat with PT [id number] JOSIAH ESCALANTE Apr 22, 2020 08:35
[2020-04-22] MEDS: ASPIRIN 325 MG (5 GR) TABLET PO SCH (09:21)
[2020-04-22] MEDS: TAMSULOSIN 0.4 MG (FLOMAX) CAP PO SCH ×2 (09:21→21:27)
[2020-04-22] MEDS: meTOproloL SUCCINATE 50 MG (TOPROL XL) TAB PO SCH (09:21)
[2020-04-22] MEDS: polyethylene glycoL POWDER 17 GM (MIRALAX) PACK PO SCH ×2 (09:22→21:27)
[2020-04-22] MEDS: LACTULOSE SYRUP 10GM/15ML (ENULOSE) 30ML UDC PO PRN (09:22)
[2020-04-22] MEDS: DOCUSATE SODIUM 100 MG (COLACE) CAP PO SCH ×2 (09:22→21:27)
[2020-04-22] MEDS: SENNA W/DOCUSATE (SENOKOT S) TABLET PO SCH ×2 (09:22→21:26)
[2020-04-22] MEDS: WITCH HAZEL(TUCKS) 40 EA JAR TOP SCH ×4 (09:23→21:27)
[2020-04-22] MEDS: HYDROcodone/APAP 5 MG/325 MG (LORTAB) TAB PO PRN (09:30)
--- NOTE | 2020-04-22 10:21 | Speech Therapy Daily Note ---
Speech Daily Progress Note Subjective Date Seen by Provider: Apr 22, 2020 Time Seen by Provider: 00:30 Patient was resting in bed and taking his medications when I entered his room. He states his daughter will be visiting today. Objective Patient completed a series of expression completion, listing items in a given category and sequencing specific items presented orally with 80% given min to mod verbal cues. Assessment Assessment Current Status: Good Progress Treatment Plan Continue Plan of Care Speech Short Term Goals Short Term Goals Short Term Goals 1) Patient will complete memory tasks related to his daily needs at 90% or greater with minimal cues. 2) Patient will complete safety awareness tasks related to his daily needs at 90% or greater with minimal cues. 3) Patient will complete problem solving tasks related to his daily needs at 90% or greater with minimal cues. 4) Patient will tolerate least restrictive diet level without s/s of aspiration at 90% or greater. 5) Patient/caregiver will utilize compensatory strategies as trained at 90% or greater with minimal cues. Speech Tax Expert Goals Group Home Goals Patient will improve cognitive-communication necessary for safety and daily living tasks with minimal assist. Patient will maintain adequate nutrition/hydration via safe effective swallow function. Speech-Plan Patient/Family Goals Patient/Family Goals: Patient plans on returning to his home upon discharge. Treatment Plan Speech Therapy Treatment Plan: Continue Plan of Care Treatment Duration: Apr 12, 2020 Frequency: 5 times per week Estimated Hrs Per Day: .5 hour per day Rehab Potential: Good Barriers to Learning: Patient's recent CVA, decreased follow through with directions Pt/Family Agrees to Plan: Yes Safety Risks/Education Teaching Recipient: Patient Teaching Methods: Demonstration, Discussion Response to Teaching: Verbalize Understanding, Return Demonstration Education Topics Provided: Safety within his room and upon his return home Time Speech Therapy Time In: 09:30 Speech Therapy Time Out: 10:00 Total Billed Time: 30 Billed Treatment Time 1, BRIAN Ahuja Apr 22, 2020 10:21
--- NOTE | 2020-04-22 12:09 | Physical Therapy Daily Note ---
PT Daily Note-Current Subjective Pt laying Supine in bed upon arrival. Pt agrees to PT but does report a little fatigued. Mental Status Patient Orientation: Person, Place, Situation Transfers SCALE: Activities may be completed with or without assistive devices. 5-Tntfdrzwlj-pmqdxuo completes the activity by him/herself with no assistance from a helper. 5-Set-up or Clean-up Assistance-helper sets up or cleans up; patient completes activity. [place] assists only prior to or following the activity. 4-Supervision or Touching Assistance-helper provides verbal cues and/or touching/steadying and/or contact guard assistance as patient completes activity. Assistance may be provided throughout the activity or intermittently. 3-Partial/Moderate Assistance-helper does LESS THAN HALF the effort. [place] lifts, holds or supports trunk or limbs, but provides less than half the effort. 2-Substantial/Maximal Assistance-helper does MORE THAN HALF the effort. [place] lifts or holds trunk or limbs and provides more than half the effort. 8-Pehkwxicf-vaejab does ALL the effort. Patient does none of the effort to complete the activity. Or, the assistance of 2 or more helpers is required for the patient to complete the activity. If activity was not attempted, code reason: 7-Patient Refused. 9-Not Applicable-not attempted and the patient did not perform the activity before the current illness, exacerbation or injury. 10-Not Attempted due to Environmental Limitations-(lack of equipment, weather restraints, etc.). 88-Not Attempted due to Medical Conditions or Safety Concerns. Lying to Sitting/Side of Bed(Q: 1 Sit to Stand (QC): 1 Chair/Zep-dm-Xfscz Xfer(QC): 1 Weight Bearing Full Weight Bearing Full Weight Bearing Wheelchair Training Does the Pt Use a Wheelchair?: Yes Wheel 50 ft with 2 turns (QC): 4 Wheel 150 ft (QC): 4 Type of Wheelchair: Manual Exercises Supine Ex: Ankle pumps, Quad Set, Glut sets, Heel Slides, Straight leg raise, Hip abd/add Supine Reps: 15 Treatments Pt completes Supine Ex in bed. TELEPHONE STATION REPAIRER assists pt with bed mobility and transfers to [facility]. Pt propels WC in hallway then completes standing at //bars in co-treat with OT. Pt agrees to co-treat to working on static & dynamic balance. Pt returns to room to rest in recliner with all needs met, call light in hand. Need for skill of 2 clinicians that a Streetcar Repairer Helper cannot perform due to debility, lack of standing balance and complex co-morbidities at this time. PT focuses on LE strengthening, transfers and dynamic standing balance (sequencing) while OT works on UE strengthening and hand placement especially on L side. Assessment Current Status: Good Progress Pt needs VC to remind him of sequencing and safety measures during standing and transfers. PT Short Term Goals Short Term Goals Time Frame: Apr 04, 2020 Roll Left & Right: 3 Sit to lyin Lying to sitting on side of be: 3 Sit to stand: 3 Chair/gqd-xl-fvjva transfer: 2 PT Cloth Pattern Maker Goals Cloth Pattern Maker Goals PT Cloth Pattern Maker Goals Time Frame: Apr 18, 2020 Roll Left & Right (QC): 3 (Pablo) Sit to Lying (QC): 3 (Pablo) Lying-Sitting on Side/Bed(QC): 3 (Pablo) Sit to Stand (QC): 3 (Pablo) Chair/Gxp-sq-Qoppb Xfer(QC): 3 (Pablo) Toilet Transfer (QC): 3 (Pablo) Car Transfer (QC): 3 (mod A) Does the Patient Walk: No and Walking Goal NOT indicated Walk 10 feet (QC): 88 Walk 50ft with 2 Turns (QC): 88 Walk 150 ft (QC): 88 Walking 10ft on Uneven Surface: 88 1 Step (curb) (QC): 88 4 Steps (QC): 88 12 Steps (QC): 88 Picking up an Object (QC): 88 Does the Pt use WC or Scooter?: Yes Wheel 50 feet with 2 turns (QC: 3 (Pablo) Type: Manual Wheel 150 feet: 3 (Pablo) Type: Manual PT Plan Problem List Problem List: Activity Tolerance, Functional Strength, Safety, Balance, Transfer Treatment/Plan Treatment Plan: Continue Plan of Care Treatment Plan: Bed Mobility, Education, Functional Activity [place], Functional Strength, Group Therapy, Gait, Safety, Therapeutic Exercise, Transfers Treatment Duration: Apr 18, 2020 Frequency: At least 5 of 7 days/Wk (IRF) Estimated Hrs Per Day: 1.5 hours per day Patient and/or Family Agrees t: Yes Safety Risks/Education Patient Education: Transfer Techniques, Correct Positioning, W/C Management, Safety Issues Teaching Recipient: Patient Teaching Methods: Discussion Response to Teaching: Verbalize Understanding, Reinforcement Needed Time/GCodes Time In: 1100 Time Out: 1200 Total Billed Treatment Time: 60 Total Billed Treatment 1, EX x2 (30m) & FA x2 (30m) MONSE SANCHEZ TELEPHONE STATION REPAIRER Apr 22, 2020 12:08
[2020-04-22] MEDS: ONDANSETRON 4 MG (ZOFRAN) ORAL DISSOLVE TAB PO PRN (13:02)
--- NOTE | 2020-04-22 13:24 | Physical Therapy Daily Note ---
PT Daily Note-Current Subjective Pt sitting in recliner upon arrival. Pt agrees to EX for tx. Mental Status Patient Orientation: Person, Place, Situation Transfers SCALE: Activities may be completed with or without assistive devices. 0-Xkrhubxxja-omhhulf completes the activity by him/herself with no assistance from a helper. 5-Set-up or Clean-up Assistance-helper sets up or cleans up; patient completes activity. [place] assists only prior to or following the activity. 4-Supervision or Touching Assistance-helper provides verbal cues and/or touching/steadying and/or contact guard assistance as patient completes activity. Assistance may be provided throughout the activity or intermittently. 3-Partial/Moderate Assistance-helper does LESS THAN HALF the effort. [place] lifts, holds or supports trunk or limbs, but provides less than half the effort. 2-Substantial/Maximal Assistance-helper does MORE THAN HALF the effort. [place] lifts or holds trunk or limbs and provides more than half the effort. 6-Xdyfilbxq-qwmrpl does ALL the effort. Patient does none of the effort to complete the activity. Or, the assistance of 2 or more helpers is required for the patient to complete the activity. If activity was not attempted, code reason: 7-Patient Refused. 9-Not Applicable-not attempted and the patient did not perform the activity before the current illness, exacerbation or injury. 10-Not Attempted due to Environmental Limitations-(lack of equipment, weather restraints, etc.). 88-Not Attempted due to Medical Conditions or Safety Concerns. Weight Bearing Full Weight Bearing Full Weight Bearing Exercises Seated Therapy Exercises: Ankle pumps, Long arc quads, Hip flexion, Kicking activity Seated Reps: 15 Treatments Pt completes Seated Ex in recliner. Pt wanted to sit up a little longer before he returns to bed. Pt has all needs met, call light in hand. Assessment Current Status: Good Progress Pt needs assistance on L LE with Ex due to weakness at this time. PT Short Term Goals Short Term Goals Time Frame: Apr 04, 2020 Roll Left & Right: 3 Sit to lyin Lying to sitting on side of be: 3 Sit to stand: 3 Chair/gvn-ad-fyojx transfer: 2 PT Buggy Loader Goals Buggy Loader Goals PT Buggy Loader Goals Time Frame: Apr 18, 2020 Roll Left & Right (QC): 3 (Pablo) Sit to Lying (QC): 3 (Pablo) Lying-Sitting on Side/Bed(QC): 3 (Pablo) Sit to Stand (QC): 3 (Pablo) Chair/Cyd-py-Lkymi Xfer(QC): 3 (Pablo) Toilet Transfer (QC): 3 (Pablo) Car Transfer (QC): 3 (mod A) Does the Patient Walk: No and Walking Goal NOT indicated Walk 10 feet (QC): 88 Walk 50ft with 2 Turns (QC): 88 Walk 150 ft (QC): 88 Walking 10ft on Uneven Surface: 88 1 Step (curb) (QC): 88 4 Steps (QC): 88 12 Steps (QC): 88 Picking up an Object (QC): 88 Does the Pt use WC or Scooter?: Yes Wheel 50 feet with 2 turns (QC: 3 (Pablo) Type: Manual Wheel 150 feet: 3 (Pablo) Type: Manual PT Plan Problem List Problem List: Activity Tolerance, Functional Strength Treatment/Plan Treatment Plan: Continue Plan of Care Treatment Plan: Bed Mobility, Education, Functional Activity [place], Functional Strength, Group Therapy, Gait, Safety, Therapeutic Exercise, Transfers Treatment Duration: Apr 18, 2020 Frequency: At least 5 of 7 days/Wk (IRF) Estimated Hrs Per Day: 1.5 hours per day Patient and/or Family Agrees t: Yes Safety Risks/Education Patient Education: Correct Positioning, Safety Issues Teaching Recipient: Patient Teaching Methods: Discussion Response to Teaching: Verbalize Understanding Time/GCodes Time In: 1300 Time Out: 1315 Total Billed Treatment Time: 15 Total Billed Treatment 1, EX (15m) MONSE SANCHEZ PTA Apr 22, 2020 13:24
[2020-04-22] MEDS: DICLOFENAC 1% GEL 100 GM (VOLTAREN) TUBE TOP PRN (14:13)
[2020-04-22] MEDS: LIDOCAINE UROJET 2% GEL 10 ML PKG TOP PRN (16:11)
[2020-04-22] MEDS: ENOXAPARIN 40 MG/0.4 ML (LOVENOX) SYR SC SCH (16:43)
[2020-04-22 16:45] VITALS: BP 113/65
--- NOTE | 2020-04-22 19:11 | NUR ---
Pt turned acetone button paster lt to use urinal. Pt voided 50cc in urinal. Pt was inct of lg amt urine in bed prior to voiding in urinal. Urine is very malodorous, & cloudy, have notified Dr. Hyman, she asked to notify urology, Dr. Drake. Have notified him. No orders rec'd. Ax2 to clean, provide audrey & skin care, change sheets.
--- NOTE | 2020-04-22 19:49 | NUR ---
Call to Dr. Drake & notified of cloudy, foul smelling urine. Rec'd orders to obtain UA w C & S, start Bactrim DS 1 po BID after UA has been obtained.
[2020-04-22] MEDS: SERTRALINE 50 MG (ZOLOFT) TABLET PO SCH (21:26)
[2020-04-22] MEDS: BACLOFEN 10 MG (LIORESAL) TAB PO SCH (21:27)
[2020-04-23 06:00] VITALS: BP 128/79
[2020-04-23] MEDS: BETHANECHOL 25 MG (URECHOLINE) TAB PO SCH ×4 (06:00→20:42)
--- NOTE | 2020-04-23 06:28 | PM&R Progress Note ---
Subjective HPI/CC On Admission Date Seen by Provider: Apr 23, 2020 Time Seen by Provider: 10:45 Subjective/Events-last exam 04/23/20: UA and urine culture obtained by Dr. Drake Bactrim DS BID ordered Vomiting and nausea noted at times Dulcolax suppository will be given Lidocaine patch will be placed on is back 04/22/20: Catheter was required today, removing 450 CCs No pain is reported Overall participating in therapy No falls Using mehnaz lifts 04/21/20: Smearing BM so will place on commode to see if he can have a BM c/o urination with dysuria so will monitor that closely Multiple caths recently increased risk for UTI 04/20/2020: Patient slept well last night Urology saw him and thinks everything is going pretty well He only voids about once a day but he does have complete evacuation of the carlita dder No more nausea and vomiting like yesterday Bowels move yesterday but needs to maintain a good bowel regimen 04/19/20: Had another episode of nausea and vomiting Had two incontinent episodes because of the vomiting Bowels moved and it was large and he became Diaphoretic He's very motivated in therapy Will schedule laxatives 04/18/20: Nauseated with physical therapy again today Vomited yesterday Zofran was given today Bowels moved four days ago will start suppository in fleets No in/out catheter required 04/17/20: Patient required IN/OUT Catheter x2 Ongoing issue with Bladder retention Bowels not moving so will be given meds again Overall doing very well 04/16/20 Preston has been discontinued and voiding well Bladder scan and In and Out Caths if needed Left sided weakness remains Very motivated appears to be depressed currently today Baclofen in the morning really helps him so will continue that Dr Drake placed him on Bactrim for UTI e coli Labs noted Mehnaz lift required Preston cath replaced and will await Urology plan Slept well Checked meds and labs Conferred with RN Reviewed therapy notes Review of Systems General: Fatigue, Malaise Neurological: Weakness Objective Exam Vital Signs Vital Signs Date Time Temp Pulse Resp B/P (MAP) Pulse Ox O2 Delivery O2 Flow Rate FiO2 04/23/20 15:43 35.0 04/23/20 14:44 84 20 136/69 (91) 97 Room Air Capillary Refill : Less Than 3 Seconds General Appearance: No Apparent Distress, WD/WN, Chronically ill HEENT: PERRL/EOMI, Normal ENT Inspection, Pharynx Normal Neck: Full Range of Motion, Normal Inspection, Non Tender, Supple, Carotid Bruit Respiratory: Chest Non Tender, Lungs Clear, Normal Breath Sounds, No Accessory Muscle Use, No Respiratory Distress Cardiovascular: Regular Rate, Rhythm, No Edema, No Gallop, No JVD, No Murmur, Normal Peripheral Pulses Gastrointestinal: Normal Bowel Sounds, No Organomegaly, No Pulsatile Mass, Non Tender, Soft Back: Normal Inspection, No CVA Tenderness, No Vertebral Tenderness Extremity: Normal Capillary Refill, Normal Inspection, Normal Range of Motion (except left side), Non Tender, No Calf Tenderness, No Pedal Edema Neurologic/Psychiatric: Alert, Oriented x3, No Motor/Sensory Deficits, Normal Mood/Affect, Depressed Affect, Facial Droop (left), Motor Weakness (left sided paresis 0/5 flaccid) Skin: Normal Color, Warm/Dry Lymphatic: No Adenopathy Results/Procedures Lab Patient resulted labs reviewed. FIM Transfers Therapy Code Descriptions/Definitions Functional [place] Measure: 0=Not Assessed/NA 4=Minimal Assistance 1=Total Assistance 5=Supervision or Setup 2=Maximal Assistance 6=Modified [place] 3=Moderate Assistance 7=Complete IndependenceSCALE: Activities may be completed with or without assistive devices. 9-Dtwssjagkf-hdfqxzi completes the activity by him/herself with no assistance from a helper. 5-Set-up or Clean-up Assistance-helper sets up or cleans up; patient completes activity. [place] assists only prior to or following the activity. 4-Supervision or Touching Assistance-helper provides verbal cues and/or touching/steadying and/or contact guard assistance as patient completes activity. Assistance may be provided throughout the activity or intermittently. 3-Partial/Moderate Assistance-helper does LESS THAN HALF the effort. [place] lifts, holds or supports trunk or limbs, but provides less than half the effort. 2-Substantial/Maximal Assistance-helper does MORE THAN HALF the effort. [place] lifts or holds trunk or limbs and provides more than half the effort. 7-Vswcgxhei-juydcv does ALL the effort. Patient does none of the effort to complete the activity. Or, the assistance of 2 or more helpers is required for the patient to complete the activity. If activity was not attempted, code reason: 7-Patient Refused. 9-Not Applicable-not attempted and the patient did not perform the activity before the current illness, exacerbation or injury. 10-Not Attempted due to Environmental Limitations-(lack of equipment, weather restraints, etc.). 88-Not Attempted due to Medical Conditions or Safety Concerns. Roll Left to Right (QC): 3 Sit to Lying (QC): 3 Sit to Stand (QC): 1 Chair/Bnc-yz-Zvtcv Xfer(QC): 1 Car Transfer (QC): 1 Gait Training Does the Patient Walk?: Yes Distance: 6'x3 Walk 10 feet (QC): 88 Walk 50 ft with 2 Turns(QC): 88 Walk 150 ft (QC): 88 Walking 10ft/uneven surface-QC: 88 Gait Persons Needed: 3 Gait Assistive Device: Parallel Bars Wheelchair Training Does the Pt Use a Wheelchair?: Yes Distance: 150' Wheel 50 ft with 2 turns (QC): 4 Wheel 150 ft (QC): 4 Type of Wheelchair: Manual Stair Training 1 Step (curb) (QC): 88 4 Steps (QC): 88 12 Steps (QC): 88 Balance Picking up an Object (QC): 88 ADL-Treatment Eating (QC): 5 Oral Hygiene (QC): 5 Bathing Location: L Arm, L Upper Leg, R Upper Leg, Chest, Abdomen, Perineal Area Shower/Bathe Self (QC): 3 Upper Body Dressing (QC): 3 (Mod A) Lower Body Dressing (QC): 2 (Max A) On/Off Footwear (QC): 1 Toileting Hygiene (QC): 1 Toilet Transfer (QC): 2 Assessment/Plan Assessment and Plan Assess & Plan/Chief Complaint Assessment: Catastrophic CVA with left sided flaccidity Left facial droop COVID-19 antibody + Bipolar disorder Autism spectrum Urinary retention Preston cath in place consulted Dr Drake Plan: IRF protocol Dr Drake consultation Monitor bowel function Fall risk CBD oil Mehnaz lift Voiding much better on his own Maintain bladder meds Bowel regimen Decreasing pain medication 04/01/20: Voltaren gel for back pain Lortab for pain Mehnaz lift completely no sit-2-stand ability Flaccid left side continues 04/02/20: Patient went to father's today Continue Voltaren gel for back pain Sit to stand no longer an option needs Mehnaz lift 04/03/20: Bowels moved 2 days ago Laxatives ordered Discontinue the Preston catheter and Dr. Matias will monitor closely for retention Completed Augmentin Baclofen and pain medication taken on a real regular basis prone for dependency and addiction potential 04/04/20: Urology management of urinary retention since catheter removed Continue pain management but addiction potential noted Air mattress to prevent skin breakdown Laxatives due to constipation now 04/05/20: Bowels still not moving, supp and Fleets and SSE will be given Decrease pain meds to Q6hrs due to overuse and narcotic bowel noted complications Addiction potential noted Preston cath replaced and Flomax and Urecholine maintained now 04/06/20: Weaned Lortab Baclofen prn is working well BM regimen to continue Preston cath 04/07/20: Baclofen 10mg at night Maintain BM regimen Likely preston cath will be required again 04/08/20: Preston reinserted Labs stable BM regimen 04/09/20: Improvement in spontaneous urination Maintain Flomax and Urecholine Monitor closely 04/10/20: Disposition pending Continue aggressive therapy Cystoscopy Bladder meds 04/11/20: Had Cysto today by Urology Urinalysis is pending Pain pill on rare occasions 04/12/20: Maintain Baclofen Dr. Drake to manage Ecoli UTI Maintain Mehnaz lift In/Out catheter prn 04/13/20: UTI Tx Bactrim Monitor closely 04/14/20: UTI Tx Check labs in am 04/15/20: Radha helping with Hemorrhoids Labs reviewed Baclofen working well Last pain pill was 4 days ago 04/17/20: Laxatives Bladder management Family education 04/18/20: Monitor nausea and vomiting Needs suppository or enema today Monitor closely 04/19/20: Monitor nausea and vomiting Laxatives will be ordered on a more scheduled basis Monitor closely 04/20/2020: Continue bowel regimen Monitor for urinary retention Aggressive therapy 04/21/20: Monitor dysuria Monitor labs BM regimen 04/22/20: Catheter as needed for retention Labs reviewed all normal Continue aggressive treatment 04/23/20: UTI diagnosed by urology Bactrim was started again Vomiting and nauseated Will give suppository for constipation today Lidocaine patch for his back per 's request (1) Acute right MCA stroke Status: Acute (2) Facial droop due to cerebrovascular accident (CVA) (3) Bipolar disorder (4) Autism spectrum (5) Urinary retention (6) Preston catheter in place (7) Coronavirus infection, unspecified Status: Chronic (8) Left-sided neglect Status: Acute (9) Dysphasia due to recent cerebrovascular accident (CVA) Status: Acute AIDE GATICA DO Apr 23, 2020 06:28
[2020-04-23] MEDS: LIDOCAINE UROJET 2% GEL 10 ML PKG TOP PRN (07:33)
[2020-04-23 07:56] LABS: BILIRUBIN,URINE NEGATIVE (NEGATIVE); CLARITY,URINE CLEAR; COLOR,URINE YELLOW; GLUCOSE, URINE (UA) NEGATIVE (NEGATIVE); KETONES,URINE NEGATIVE (NEGATIVE); LEUKOCYTE ESTERASE ,URINE 1+ (NEGATIVE); NITRITE,URINE POSITIVE (NEGATIVE); PROTEIN,URINE NEGATIVE (NEGATIVE)
[2020-04-23 08:11] LABS: BACTERIA,URINE LARGE /HPF; SQUAMOUS EPITHELIAL CELL,UR RARE /HPF
--- NOTE | 2020-04-23 08:57 | Physical Therapy Daily Note ---
PT Daily Note-Current Subjective Patient in shower room with OT, agrees to PT, has no complaints of pain, will be co-treating with OT due to poor patient mobility, strength, endurance, sitting and standing balance, left hemiparesis, the need to coordinate UE and LE during activity. Appearance Patient in recliner post tx with nurse call, phone, tray, all needs met. Mental Status Patient Orientation: Person, Place, Situation Transfers SCALE: Activities may be completed with or without assistive devices. 8-Wnknygavny-jcsbslg completes the activity by him/herself with no assistance from a helper. 5-Set-up or Clean-up Assistance-helper sets up or cleans up; patient completes activity. [place] assists only prior to or following the activity. 4-Supervision or Touching Assistance-helper provides verbal cues and/or touching/steadying and/or contact guard assistance as patient completes activi ty. Assistance may be provided throughout the activity or intermittently. 3-Partial/Moderate Assistance-helper does LESS THAN HALF the effort. Deposit lifts, holds or supports trunk or limbs, but provides less than half the effort. 2-Substantial/Maximal Assistance-helper does MORE THAN HALF the effort. Deposit lifts or holds trunk or limbs and provides more than half the effort. 9-Ucnjxlxqr-ehlkmb does ALL the effort. Patient does none of the effort to complete the activity. Or, the assistance of 2 or more helpers is required for the patient to complete the activity. If activity was not attempted, code reason: 7-Patient Refused. 9-Not Applicable-not attempted and the patient did not perform the activity before the current illness, exacerbation or injury. 10-Not Attempted due to Environmental Limitations-(lack of equipment, weather restraints, etc.). 88-Not Attempted due to Medical Conditions or Safety Concerns. Sit to Stand (QC): 3 Chair/Jdn-gw-Rfhta Xfer(QC): 3 Practiced stand pivot transfers to the right side x8 with min/mod assist Weight Bearing Full Weight Bearing Full Weight Bearing Gait Training Distance: 6'x4 Gait Assistive Device: Parallel Bars mod assist, cues for steps, assist advancing his left leg Wheelchair Training Does the Pt Use a Wheelchair?: Yes Wheel 50 ft with 2 turns (QC): 3 Wheel 150 ft (QC): 3 Type of Wheelchair: Manual Pablo Treatments PT performed standing and transfers during bathing and dressing, transfer training, ambulation, WC mobility, OT performed bathing, dressing, UE positioning and safety during ambulation and transfers. Assessment Current Status: Fair Progress improving transfers to the right side, patient cannot perform them to the left side without max assist at this time PT Short Term Goals Short Term Goals Time Frame: Apr 04, 2020 Roll Left & Right: 3 Sit to lyin Lying to sitting on side of be: 3 Sit to stand: 3 Chair/yep-ba-dvyot transfer: 2 PT Longterm Goals Sales Agent [employer] Goals PT Longterm Goals Time Frame: Apr 18, 2020 Roll Left & Right (QC): 3 (Pablo) Sit to Lying (QC): 3 (Pablo) Lying-Sitting on Side/Bed(QC): 3 (Pablo) Sit to Stand (QC): 3 (Pablo) Chair/Tem-nr-Kcamy Xfer(QC): 3 (Pablo) Toilet Transfer (QC): 3 (Pablo) Car Transfer (QC): 3 (mod A) Does the Patient Walk: No and Walking Goal NOT indicated Walk 10 feet (QC): 88 Walk 50ft with 2 Turns (QC): 88 Walk 150 ft (QC): 88 Walking 10ft on Uneven Surface: 88 1 Step (curb) (QC): 88 4 Steps (QC): 88 12 Steps (QC): 88 Picking up an Object (QC): 88 Does the Pt use WC or Scooter?: Yes Wheel 50 feet with 2 turns (QC: 3 (Pablo) Type: Manual Wheel 150 feet: 3 (Pablo) Type: Manual PT Plan Problem List Problem List: Activity Tolerance, Functional Strength, Safety, Balance, Gait, Transfer, Bed Mobility, ROM Treatment/Plan Treatment Plan: Continue Plan of Care Treatment Plan: Bed Mobility, Education, Functional Activity [place], Functional Strength, Group Therapy, Gait, Safety, Therapeutic Exercise, Transfers Treatment Duration: Apr 18, 2020 Frequency: At least 5 of 7 days/Wk (IRF) Estimated Hrs Per Day: 1.5 hours per day Patient and/or Family Agrees t: Yes Safety Risks/Education Patient Education: Gait Training, Transfer Techniques, Correct Positioning, W/C Management, Safety Issues Teaching Recipient: Patient Teaching Methods: Demonstration, Discussion Response to Teaching: Reinforcement Needed Time/GCodes Time In: 0800 Time Out: 0900 Total Billed Treatment Time: 60 Total Billed Treatment 1 visit FA 60' MARK RYAN PT Apr 23, 2020 08:57
--- NOTE | 2020-04-23 09:01 | Occupational Ther Daily Note ---
OT Current Status-Daily Note Subjective Pt alert, lying in bed. Nrsg entered room to complete straight cath with pt. Pt agrees to therapy. Pt c/o pain in L hip and L forearm due to increased tone. Resting hand splint not applied during night. Mental Status/Objective Patient Orientation: Person, Place, Time, Situation ADL-Treatment Pt agrees to shower. Pt requires set up of shower supplies. Verbal cues and mod A for supine to EOB, SBA for sitting EOB. Transferring to R side min A x1 though 2nd person assisting with transfer due to pt's impulsivity to transfer shower chair with cutout. With verbal cues for what part to bath, pt able to complete upper body (assist to lift L UE), audrey area and upper legs. Assist with all other parts, rinsing and drying. Mod A for upper body dressing requiri ng strategies for one arm dressing and buttoning shirt. Assist x2 for lower body dressing. Therapy Code Descriptions/Definitions Functional [place] Measure: 0=Not Assessed/NA 4=Minimal Assistance 1=Total Assistance 5=Supervision or Setup 2=Maximal Assistance 6=Modified [place] 3=Moderate Assistance 7=Complete IndependenceSCALE: Activities may be completed with or without assistive devices. 8-Ermwkxpazs-roqmtmy completes the activity by him/herself with no assistance from a helper. 5-Set-up or Clean-up Assistance-helper sets up or cleans up; patient completes activity. [place] assists only prior to or following the activity. 4-Supervision or Touching Assistance-helper provides verbal cues and/or touching/steadying and/or contact guard assistance as patient completes acti vity. Assistance may be provided throughout the activity or intermittently. 3-Partial/Moderate Assistance-helper does LESS THAN HALF the effort. [place] lifts, holds or supports trunk or limbs, but provides less than half the effort. 2-Substantial/Maximal Assistance-helper does MORE THAN HALF the effort. [place] lifts or holds trunk or limbs and provides more than half the effort. 4-Dsffeuico-fatofl does ALL the effort. Patient does none of the effort to complete the activity. Or, the assistance of 2 or more helpers is required for the patient to complete the activity. If activity was not attempted, code reason: 7-Patient Refused. 9-Not Applicable-not attempted and the patient did not perform the activity before the current illness, exacerbation or injury. 10-Not Attempted due to Environmental Limitations-(lack of equipment, weather restraints, etc.). 88-Not Attempted due to Medical Conditions or Safety Concerns. Bathing Location: L Arm, R Arm, L Upper Leg, R Upper Leg, Chest, Perineal Area Shower/Bathe Self (QC): 3 Upper Body Dressing (QC): 3 Lower Body Dressing (QC): 1 On/Off Footwear: 2 Other Treatment See PT notes for ambulation at parallel bars. OT assisting with L UE placement/position during ambulation. Pt working on SPT toward R side is improving though continues to require min A-mod A due to impulsiveness. After session, pt sitting in recliner with call light/phone in reach. All needs met in room. OT Short Term Goals Short Term Goals Time Frame: Apr 11, 2020 Eatin Oral hygiene: 3 Toileting hygiene: 3 Shower/bathe self: 2 Upper body dressin Lower body dressin Putting on/taking off footwear: 2 OT Junior Technical Writer Goals Junior Technical Writer Goals Time Frame: Apr 25, 2020 Eating (QC): 4 Oral Hygiene (QC): 4 Toileting Hygiene (QC): 3 Shower/Bathe Self (QC): 3 Upper Body Dressing (QC): 4 Lower Body Dressing (QC): 4 On/Off Footwear (QC): 4 Additional Goals: 1-Demonstrate ADL Tasks, 2-Verbalize Understanding, 3- ImproveStrength/[place] 1=Demonstrate adherence to instructed precautions during ADL tasks. 2=Patient will verbalize/demonstrate understanding of assistive devices/modifications for ADL. 3=Patient will improve strength/tolerance for activity to enable patient to perform ADL's. OT Education/Plan Problem List/Assessment Assessment: Decreased Activ Tolerance, Decreased Safety Aware, Decreased UE Strength, Dependent Transfers, Impaired Bed Mobility, Impaired Cognition, Impaired Coordination, Impaired Funct Balance, Impaired Self-Care Skills, Restricted Funct UE ROM, Visual-Perceptual Deficit Discharge Recommendations Plan/Recommendations: Continue POC Treatment Plan/Plan of Care Patient would benefit from OT for education, treatment and training to promote independence in ADL's, mobility, safety and/or upper extremity function for ADL's. Plan of Care: ADL Retraining, Functional Mobility, UE Funct Exercise/Act, UE Neuromus Re-Ed/Coord, Visual/Perceptual Retrain Treatment Duration: Apr 25, 2020 Frequency: At least 5 of 7 days/Wk (IRF) Estimated Hrs Per Day: 1.5 hours per day Agreement: Yes Rehab Potential: Good Time/GCodes Start Time: 07:30 Stop Time: 09:00 Total Time Billed (hr/min): 90 Billed Treatment Time 1 visit-ADL 3 (45 min) NM 3 (45 min) co-treat with PT 45 min ([id number]) individual 45 min ([id number]) JOSIAH ESCALANTE Apr 23, 2020 09:01
[2020-04-23] MEDS: ONDANSETRON 4 MG (ZOFRAN) ORAL DISSOLVE TAB PO PRN ×2 (09:44→14:57)
[2020-04-23] MEDS: SENNA W/DOCUSATE (SENOKOT S) TABLET PO SCH ×2 (09:45→20:41)
[2020-04-23] MEDS: DOCUSATE SODIUM 100 MG (COLACE) CAP PO SCH ×2 (09:46→20:41)
[2020-04-23] MEDS: TAMSULOSIN 0.4 MG (FLOMAX) CAP PO SCH ×2 (09:46→20:41)
[2020-04-23] MEDS: TRIM/SULFAMETH 160/800 (SEPTRA DS) TAB PO SCH ×2 (09:46→17:48)
[2020-04-23] MEDS: WITCH HAZEL(TUCKS) 40 EA JAR TOP SCH ×4 (09:46→21:00)
[2020-04-23] MEDS: polyethylene glycoL POWDER 17 GM (MIRALAX) PACK PO SCH ×2 (09:46→20:41)
[2020-04-23] MEDS: meTOproloL SUCCINATE 50 MG (TOPROL XL) TAB PO SCH (09:46)
[2020-04-23] MEDS: ASPIRIN 325 MG (5 GR) TABLET PO SCH (09:46)
[2020-04-23] MEDS: BACLOFEN 10 MG (LIORESAL) TAB PO PRN (09:50)
--- NOTE | 2020-04-23 10:06 | Progress Note - Urology ---
Progress Note-Urology Progress Notes/Assess & Plan Progress/Assessment & Plan HAS CLOUDY SMELLY URINE. UA AND CULTURE SENT AND STARTED ON BACTRIM DS PENDING RESULTS Final Diagnosis URINE RETENTION AND UTI TIFFANIE WOMACK MD Apr 23, 2020 10:06
--- NOTE | 2020-04-23 13:01 | Speech Therapy Daily Note ---
Speech Daily Progress Note Subjective Date Seen by Provider: Apr 23, 2020 Time Seen by Provider: 00:30 Patient was sitting up in his recliner for therapy. Patient states he was tired because he had just finished with his OT and PT session. Objective Patient completed a series of advanced various trivia with 80% given minimal cues. Assessment Assessment Current Status: Good Progress Treatment Plan Continue Plan of Care Speech Short Term Goals Short Term Goals Short Term Goals 1) Patient will complete memory tasks related to his daily needs at 90% or greater with minimal cues. 2) Patient will complete safety awareness tasks related to his daily needs at 90% or greater with minimal cues. 3) Patient will complete problem solving tasks related to his daily needs at 90% or greater with minimal cues. 4) Patient will tolerate least restrictive diet level without s/s of aspiration at 90% or greater. 5) Patient/caregiver will utilize compensatory strategies as trained at 90% or greater with minimal cues. Speech Shelter Goals Shelter Goals Patient will improve cognitive-communication necessary for safety and daily living tasks with minimal assist. Patient will maintain adequate nutrition/hydration via safe effective swallow function. Speech-Plan Patient/Family Goals Patient/Family Goals: Patient will discharge to his home where he lives with his . Treatment Plan Speech Therapy Treatment Plan: Continue Plan of Care Treatment Duration: Apr 12, 2020 Frequency: 5 times per week Estimated Hrs Per Day: .5 hour per day Rehab Potential: Good Barriers to Learning: Patient continues left side neglect, affects of his recent CVA Pt/Family Agrees to Plan: Yes Safety Risks/Education Teaching Recipient: Patient Teaching Methods: Demonstration, Discussion Response to Teaching: Verbalize Understanding, Return Demonstration Education Topics Provided: Continued safety within his room and utilization of the call light when needed Time Speech Therapy Time In: 09:00 Speech Therapy Time Out: 09:30 Total Billed Time: 30 Billed Treatment Time 1, BRIAN Ahuja Apr 23, 2020 13:01
--- NOTE | 2020-04-23 14:19 | Cardiology Progress Note ---
Cardiology SOAP Progress Note Subjective: No cardiac complaints. Objective: I&O/Vital Signs 04/23/20 06:00 Temp 36.0 Pulse 71 Resp 18 B/P (MAP) 128/79 (95) Pulse Ox 98 O2 Delivery Room Air 04/23/20 00:00 Intake Total 850 ml Output Total 400 ml Balance 450 ml Constitutional: AAO x 3, PERRL, well-developed, well-nourished Respiratory: chest is bilaterally symmetric, lungs clear to auscultation Cardiovascular: regular rate-rhythm, S1 and S2 Gastrointestional: soft, audible bowel sounds Extremities: no lower extremity edema bilateral Neurologic/Psychiatric: facial droop (left), other (left sided flaccid) Skin: No rash on exposed areas, No ulcerations on exposed areas Results/Procedures: Labs Laboratory Tests 04/23/20 07:31: Urine Color YELLOW, Urine Clarity CLEAR, Urine pH 6.0, Urine Specific [place] 1.015L, Urine Protein NEGATIVE, Urine Glucose (UA) NEGATIVE, Urine Ketones NEGATIVE, Urine Nitrite POSITIVEH, Urine Bilirubin NEGATIVE, Urine Urobilinogen 1.0, Urine Leukocyte Esterase 1+H, Urine RBC (Auto) NEGATIVE, Urine RBC NONE, Urine WBC 10-25H, Urine Squamous Epithelial Cells RARE, Urine Crystals NONE, Urine Bacteria LARGEH, Urine Casts NONE, Urine Mucus NEGATIVE, Urine Culture Indicated YES Microbiology 04/10/20 MRSA Screen - Final, Complete MRSA not isolated 04/09/20 Urine Culture - Final, Complete Escherichia coli A/P: Assessment/Dx: Hypertension, not well controlled Cryptogenic stroke - ILR implanted on 03-26-2020 Non-occlusive carotid dz, minimal plaque seen on carotid u/s of March 25, 2020 Echocardiogram of March 26, 2020: 55-65% showed normal LV function with no wall motion abnormalities. Negative bubble study ruled out significant intracardiac shunting (+) COVID antibody on testing of March 25, 2020 Plan: BP control Monitor labs from time to time Thank you for your consultation. Please call me if you have any questions. Tiesha Arevalo MD, FACP, FACC, FSCAI, FHRS, CCDS Interventional Cardiology Cardiac Electrophysiology Vascular Medicine and Endovascular Interventions Shaggy AREVALO MD Apr 23, 2020 14:19
[2020-04-23 14:44] VITALS: BP 136/69
[2020-04-23] MEDS ORDERED: SCOPOLAMINE 1.5 MG (TRANSDERM-SCOP) PATCH TD NR (15:00)
[2020-04-23 15:43] VITALS: BP 136/81
--- NOTE | 2020-04-23 15:59 | Physical Therapy Progress Note ---
Therapy Progress Note [employer]ING [employer]OM CASHIER arrives to see pt and pt and SP reports nausea and ask to see pt later. HOTEL [employer] DINING ROOM CASHIER arrives again at ~1545 and pt has just been cleaned up and has been vomiting per Nurse and SP. Both ask for pt to not receive last 15m of PT today. PT will return tomorrow to check on pt's progress. MONSE SANCHEZ [employer]ING ROOM C[employer]IER Apr 23, 2020 15:59
[2020-04-23 16:22] VITALS: BP 127/79
[2020-04-23 17:00] VITALS: BP 127/71
[2020-04-23] MEDS: ENOXAPARIN 40 MG/0.4 ML (LOVENOX) SYR SC SCH (17:11)
[2020-04-23] MEDS: BACLOFEN 10 MG (LIORESAL) TAB PO SCH (20:41)
[2020-04-23] MEDS: SERTRALINE 50 MG (ZOLOFT) TABLET PO SCH (20:41)
--- NOTE | 2020-04-23 21:43 | NUR ---
Pt had bouts of nausea w small to moderate amt of emesis this afternoon. The most pt vomited at one time was approx 125cc undigested food. Pt was inct of bm along w the vomiting. See EMAR for times Zofran, & Phenergan were given. Pt was also given Xanax. Notified Dr. Hyman of this, & also that pt & had requested the Scopalamine patch, as they said that it had worked for him before when this happened. Complete bed change x 3 d/t sx. Pt also became diaphoretic, warm blanket applied, pt afebrile. Pt feeling better before supper, although didn't want to eat much. Also didn't want to take the scheduled Bactrim or Urecholine d/t n/v. w pt, & assisted staff w cleaning pt up/turning. Pt later drank 2 cans of Sprite, & Gatorade. Pt & report that he gets like this if bowels haven't moved in 3 days.
[2020-04-24 05:05] VITALS: BP 125/68
[2020-04-24] MEDS: BETHANECHOL 25 MG (URECHOLINE) TAB PO SCH ×4 (05:33→21:02)
[2020-04-24] MEDS: BACLOFEN 10 MG (LIORESAL) TAB PO PRN (05:33)
[2020-04-24] MEDS: LIDOCAINE UROJET 2% GEL 10 ML PKG TOP PRN (05:33)
--- NOTE | 2020-04-24 05:52 | PM&R Progress Note ---
Subjective HPI/CC On Admission Date Seen by Provider: Apr 24, 2020 Time Seen by Provider: 10:00 Subjective/Events-last exam 04/24/20: No more episodes of nausea, vomiting or constipation Changing Tux hemorrhoid pads to prn Overall feels like he is doing pretty well Disposition planned in the near future 04/23/20: UA and urine culture obtained by Dr. Drake Bactrim DS BID ordered Vomiting and nausea noted at times Dulcolax suppository will be given Lidocaine patch will be placed on is back 04/22/20: Catheter was required today, removing 450 CCs No pain is reported Overall participating in therapy No falls Using mehnaz lifts 04/21/20: Smearing BM so will place on commode to see if he can have a BM c/o urination with dysuria so will monitor that closely Multiple caths recently increased risk for UTI 04/20/2020: Patient slept well last night Urology saw him and thinks everything is going pretty well He only voids about once a day but he does have complete evacuation of the bladder No more nausea and vomiting like yesterday Bowels move yesterday but needs to maintain a good bowel regimen 04/19/20: Had another episode of nausea and vomiting Had two incontinent episodes because of the vomiting Bowels moved and it was large and he became Diaphoretic He's very motivated in therapy Will schedule laxatives 04/18/20: Nauseated with physical therapy again today Vomited yesterday Zofran was given today Bowels moved four days ago will start suppository in fleets No in/out catheter required 04/17/20: Patient required IN/OUT Catheter x2 Ongoing issue with Bladder retention Bowels not moving so will be given meds again Overall doing very well 04/16/20 Preston has been discontinued and voiding well Bladder scan and In and Out Caths if needed Left sided weakness remains Very motivated appears to be depressed currently today Baclofen in the morning really helps him so will continue that Dr Drake placed him on Bactrim for UTI e coli Labs noted Mehnaz lift required Preston cath replaced and will await Urology plan Slept well Checked meds and labs Conferred with RN Reviewed therapy notes Review of Systems General: Fatigue, Malaise Neurological: Weakness Focused Exam Lactate Level 04/24/20 06:20: Lactic Acid Level 1.50 Objective Exam Vital Signs Vital Signs Date Time Temp Pulse Resp B/P (MAP) Pulse Ox O2 Delivery O2 Flow Rate FiO2 04/24/20 18:00 37.0 91 20 119/70 (86) 95 Room Air Capillary Refill : Less Than 3 Seconds General Appearance: No Apparent Distress, WD/WN, Chronically ill HEENT: PERRL/EOMI, Normal ENT Inspection, Pharynx Normal Neck: Full Range of Motion, Normal Inspection, Non Tender, Supple, Carotid Bruit Respiratory: Chest Non Tender, Lungs Clear, Normal Breath Sounds, No Accessory Muscle Use, No Respiratory Distress Cardiovascular: Regular Rate, Rhythm, No Edema, No Gallop, No JVD, No Murmur, N ormal Peripheral Pulses Gastrointestinal: Normal Bowel Sounds, No Organomegaly, No Pulsatile Mass, Non Tender, Soft Back: Normal Inspection, No CVA Tenderness, No Vertebral Tenderness Extremity: Normal Capillary Refill, Normal Inspection, Normal Range of Motion (except left side), Non Tender, No Calf Tenderness, No Pedal Edema Neurologic/Psychiatric: Alert, Oriented x3, No Motor/Sensory Deficits, Normal Mood/Affect, Depressed Affect, Facial Droop (left), Motor Weakness (left sided paresis 0/5 flaccid) Skin: Normal Color, Warm/Dry Lymphatic: No Adenopathy Results/Procedures Lab Laboratory Tests 04/24/20 06:20 Patient resulted labs reviewed. FIM Transfers Therapy Code Descriptions/Definitions Functional [place] Measure: 0=Not Assessed/NA 4=Minimal Assistance 1=Total Assistance 5=Supervision or Setup 2=Maximal Assistance 6=Modified [place] 3=Moderate Assistance 7=Complete IndependenceSCALE: Activities may be completed with or without assistive devices. 1-Bgzsggxone-fvfmqqa completes the activity by him/herself with no assistance from a helper. 5-Set-up or Clean-up Assistance-helper sets up or cleans up; patient completes activity. [place] assists only prior to or following the activity. 4-Supervision or Touching Assistance-helper provides verbal cues and/or touching/steadying and/or contact guard assistance as patient completes activity. Assistance may be provided throughout the activity or intermittently. 3-Partial/Moderate Assistance-helper does LESS THAN HALF the effort. [place] lifts, holds or supports trunk or limbs, but provides less than half the effort. 2-Substantial/Maximal Assistance-helper does MORE THAN HALF the effort. [place] lifts or holds trunk or limbs and provides more than half the effort. 9-Tjapastam-xdzlre does ALL the effort. Patient does none of the effort to complete the activity. Or, the assistance of 2 or more helpers is required for the patient to complete the activity. If activity was not attempted, code reason: 7-Patient Refused. 9-Not Applicable-not attempted and the patient did not perform the activity before the current illness, exacerbation or injury. 10-Not Attempted due to Environmental Limitations-(lack of equipment, weather restraints, etc.). 88-Not Attempted due to Medical Conditions or Safety Concerns. Roll Left to Right (QC): 3 Sit to Lying (QC): 3 Sit to Stand (QC): 3 Chair/Aai-ih-Olsdm Xfer(QC): 3 Car Transfer (QC): 1 Gait Training Does the Patient Walk?: Yes Distance: 6'x4 Walk 10 feet (QC): 88 Walk 50 ft with 2 Turns(QC): 88 Walk 150 ft (QC): 88 Walking 10ft/uneven surface-QC: 88 Gait Persons Needed: 3 Gait Assistive Device: Parallel Bars Wheelchair Training Does the Pt Use a Wheelchair?: Yes Distance: 150' Wheel 50 ft with 2 turns (QC): 3 Wheel 150 ft (QC): 3 Type of Wheelchair: Manual Stair Training 1 Step (curb) (QC): 88 4 Steps (QC): 88 12 Steps (QC): 88 Balance Picking up an Object (QC): 88 ADL-Treatment Eating (QC): 5 Oral Hygiene (QC): 5 Bathing Location: L Arm, R Arm, L Upper Leg, R Upper Leg, Chest, Perineal Area Shower/Bathe Self (QC): 3 Upper Body Dressing (QC): 3 Lower Body Dressing (QC): 1 On/Off Footwear (QC): 2 Toileting Hygiene (QC): 1 Toilet Transfer (QC): 2 Assessment/Plan Assessment and Plan Assess & Plan/Chief Complaint Assessment: Catastrophic CVA with left sided flaccidity Left facial droop COVID-19 antibody + Bipolar disorder Autism spectrum Urinary retention Preston cath in place consulted Dr Drake Plan: IRF protocol Dr Drake consultation Monitor bowel function Fall risk CBD oil Mehnaz lift Voiding much better on his own Maintain bladder meds Bowel regimen Decreasing pain medication 04/01/20: Voltaren gel for back pain Lortab for pain Mehnaz lift completely no sit-2-stand ability Flaccid left side continues 04/02/20: Patient went to father's today Continue Voltaren gel for back pain Sit to stand no longer an option needs Mehnaz lift 04/03/20: Bowels moved 2 days ago Laxatives ordered Discontinue the Preston catheter and Dr. Matias will monitor closely for retention Completed Augmentin Baclofen and pain medication taken on a real regular basis prone for dependency and addiction potential 04/04/20: Urology management of urinary retention since catheter removed Continue pain management but addiction potential noted Air mattress to prevent skin breakdown Laxatives due to constipation now 04/05/20: Bowels still not moving, supp and Fleets and SSE will be given Decrease pain meds to Q6hrs due to overuse and narcotic bowel noted complications Addiction potential noted Preston cath replaced and Flomax and Urecholine maintained now 04/06/20: Weaned Lortab Baclofen prn is working well BM regimen to continue Preston cath 04/07/20: Baclofen 10mg at night Maintain BM regimen Likely preston cath will be required again 04/08/20: Preston reinserted Labs stable BM regimen 04/09/20: Improvement in spontaneous urination Maintain Flomax and Urecholine Monitor closely 04/10/20: Disposition pending Continue aggressive therapy Cystoscopy Bladder meds 04/11/20: Had Cysto today by Urology Urinalysis is pending Pain pill on rare occasions 04/12/20: Maintain Baclofen Dr. Drake to manage Ecoli UTI Maintain Mehnaz lift In/Out catheter prn 04/13/20: UTI Tx Bactrim Monitor closely 04/14/20: UTI Tx Check labs in am 04/15/20: Tucks helping with Hemorrhoids Labs reviewed Baclofen working well Last pain pill was 4 days ago 04/17/20: Laxatives Bladder management Family education 04/18/20: Monitor nausea and vomiting Needs suppository or enema today Monitor closely 04/19/20: Monitor nausea and vomiting Laxatives will be ordered on a more scheduled basis Monitor closely 04/20/2020: Continue bowel regimen Monitor for urinary retention Aggressive therapy 04/21/20: Monitor dysuria Monitor labs BM regimen 04/22/20: Catheter as needed for retention Labs reviewed all normal Continue aggressive treatment 04/23/20: UTI diagnosed by urology Bactrim was started again Vomiting and nauseated Will give suppository for constipation today Lidocaine patch for his back per 's request 04/24/20: Continue aggressive bowel regimen Follow up on urine culture Scopolamine patch as needed (1) Acute right MCA stroke Status: Acute (2) Facial droop due to cerebrovascular accident (CVA) (3) Bipolar disorder (4) Autism spectrum (5) Urinary retention (6) Preston catheter in place (7) Coronavirus infection, unspecified Status: Chronic (8) Left-sided neglect Status: Acute (9) Dysphasia due to recent cerebrovascular accident (CVA) Status: Acute AIDE GATICA DO Apr 24, 2020 05:52
[2020-04-24 06:34] LABS: BASOPHILS % (AUTO) 0 % (0-10); EOSINOPHILS # (AUTO) 0.1 10^3/uL (0.0-0.3); EOSINOPHILS % (AUTO) 1 % (0-10); HEMATOCRIT 38 % (40-54); HEMOGLOBIN 12.4 G/DL (13.3-17.7); LYMPHOCYTES % (AUTO) 28 % (12-44); MEAN CORPUSCULAR HEMOGLOBIN 29 PG (25-34); MEAN CORPUSCULAR HGB CONC 33 G/DL (32-36); MEAN CORPUSCULAR VOLUME 90 FL (80-99); MEAN PLATELET VOLUME 11.5 FL (7.4-10.4); MONOCYTES # (AUTO) 0.4 X 10^3 (0.0-1.0); MONOCYTES % (AUTO) 6 % (0-12); NEUTROPHILS # (AUTO) 4.6 X 10^3 (1.8-7.8); NEUTROPHILS % (AUTO) 65 % (42-75); PLATELET COUNT 247 10^3/uL (130-400); RED CELL DISTRIBUTION WIDTH 13.7 % (10.0-14.5); WHITE BLOOD COUNT 7.1 10^3/uL (4.3-11.0)
[2020-04-24 06:55] LABS: ALANINE AMINOTRANSFERASE 21 U/L (0-55); ALKALINE PHOSPHATASE 65 U/L (40-136); BILIRUBIN,TOTAL 0.4 MG/DL (0.1-1.0); BUN/CREATININE RATIO 22; CALCIUM 9.2 MG/DL (8.5-10.1); CARBON DIOXIDE 24 MMOL/L (21-32); CHLORIDE 105 MMOL/L (98-107); CREATININE SERUM 0.85 MG/DL (0.60-1.30); GFR ESTIMATED > 60; GLUCOSE 117 MG/DL (70-105); POTASSIUM 3.3 MMOL/L (3.6-5.0); SODIUM 141 MMOL/L (135-145); TOTAL PROTEIN 7.1 GM/DL (6.4-8.2)
[2020-04-24] MEDS: polyethylene glycoL POWDER 17 GM (MIRALAX) PACK PO SCH ×2 (09:00→19:30)
[2020-04-24] MEDS: WITCH HAZEL(TUCKS) 40 EA JAR TOP SCH ×2 (09:00→15:47)
[2020-04-24] MEDS: DOCUSATE SODIUM 100 MG (COLACE) CAP PO SCH ×2 (09:20→21:02)
[2020-04-24] MEDS: TRIM/SULFAMETH 160/800 (SEPTRA DS) TAB PO SCH ×2 (09:20→17:01)
[2020-04-24] MEDS: ASPIRIN 325 MG (5 GR) TABLET PO SCH (09:20)
[2020-04-24] MEDS: SENNA W/DOCUSATE (SENOKOT S) TABLET PO SCH ×2 (09:20→21:02)
[2020-04-24] MEDS: TAMSULOSIN 0.4 MG (FLOMAX) CAP PO SCH ×2 (09:20→21:02)
[2020-04-24] MEDS: meTOproloL SUCCINATE 50 MG (TOPROL XL) TAB PO SCH (09:20)
--- NOTE | 2020-04-24 09:51 | Progress Note - Urology ---
Progress Note-Urology Progress Notes/Assess & Plan Progress/Assessment & Plan DOING [place]. URINE IMPROVED. UA/UC POSITIVE WITH E.COLI, SENSITIVITY PENDING. TOLERATES BACTRIM DS WELL Final Diagnosis URINE RETENTION AND UTI TIFFANIE WOMACK MD Apr 24, 2020 09:51
--- NOTE | 2020-04-24 10:21 | Occupational Ther Daily Note ---
OT Current Status-Daily Note Subjective Pt alert, lying in bed. Pt agrees to therapy. Pt c/o pain in neck, does not rate, applied medicated ointment for pain to back of neck. Pt stated no nausea at this time. Mental Status/Objective Patient Orientation: Person, Place, Time, Situation ADL-Treatment Therapy Code Descriptions/Definitions Functional [place] Measure: 0=Not Assessed/NA 4=Minimal Assistance 1=Total Assistance 5=Supervision or Setup 2=Maximal Assistance 6=Modified [place] 3=Moderate Assistance 7=Complete IndependenceSCALE: Activities may be completed with or without assistive devices. 9-Nqkzuchwrz-tgljbdp completes the activity by him/herself with no assistance from a helper. 5-Set-up or Clean-up Assistance-helper sets up or cleans up; patient completes activity. [place] assists only prior to or following the activity. 4-Supervision or Touching Assistance-helper provides verbal cues and/or touching/steadying and/or contact guard assistance as patient completes activity. Assistance may be provided throughout the activity or intermittently. 3-Partial/Moderate Assistance-helper does LESS THAN HALF the effort. [place] lifts, holds or supports trunk or limbs, but provides less than half the effort. 2-Substantial/Maximal Assistance-helper does MORE THAN HALF the effort. [place] lifts or holds trunk or limbs and provides more than half the effort. 6-Iafomvszh-zkspdx does ALL the effort. Patient does none of the effort to complete the activity. Or, the assistance of 2 or more helpers is required for the patient to complete the activity. If activity was not attempted, code reason: 7-Patient Refused. 9-Not Applicable-not attempted and the patient did not perform the activity before the current illness, exacerbation or injury. 10-Not Attempted due to Environmental Limitations-(lack of equipment, weather restraints, etc.). 88-Not Attempted due to Medical Conditions or Safety Concerns. Upper Body Dressing (QC): 2 (Pt continues to work on donning shirt with one handed technique, mod A to complete with verbal and physical cues.) Lower Body Dressing (QC): 2 (Max A when completing in supine. Pt assists with rolling side to side.) On/Off Footwear: 2 Other Treatment OT/PT co-treat ([id number]), skills of 2 clinicians are required to complete skilled instruction and physical management due to neuromuscular retraining for mobility, transfers and ADLs. PT worked mobility, transfers and B LE movement. OT working on ADLs, mobility and B UE movement. No intentional movement noted in L UE, tone noted. Min A with verbal cues to sequence task, pt able to go from supine to EOB. Pt transferred from EOB to w/c with min A x1 with assist of 2nd person for safety due to pt's impulsiveness. Pt. wheeled from room to rehab gym with physical and verbal cues to maneuver around corners and to avoid objects on L side due to significant L side neglect. Pt. pulled to stand using o utside parallel bars to perform sit to stand x3 with assist x2 due to decreased balance and impulsiveness. Pt needed max assist to support affected leg but CGA to support his trunk when standing up from w/c. Pt propelled w/c back to room and requested to lay in bed. Pt in supine while neuromuscular massage completed to L forearm and hand. After session, pt positioned comfortably in bed with call light/phone in reach. All needs met in room. OT Short Term Goals Short Term Goals Time Frame: Apr 11, 2020 Eatin Oral hygiene: 3 Toileting hygiene: 3 Shower/bathe self: 2 Upper body dressin Lower body dressin Putting on/taking off footwear: 2 OT Assisted Goals Assisted Goals Time Frame: Apr 25, 2020 Eating (QC): 4 Oral Hygiene (QC): 4 Toileting Hygiene (QC): 3 Shower/Bathe Self (QC): 3 Upper Body Dressing (QC): 4 Lower Body Dressing (QC): 4 On/Off Footwear (QC): 4 Additional Goals: 1-Demonstrate ADL Tasks, 2-Verbalize Understanding, 3- ImproveStrength/[place] 1=Demonstrate adherence to instructed precautions during ADL tasks. 2=Patient will verbalize/demonstrate understanding of assistive de vices/modifications for ADL. 3=Patient will improve strength/tolerance for activity to enable patient to perform ADL's. OT Education/Plan Problem List/Assessment Assessment: Decreased Activ Tolerance, Decreased Safety Aware, Decreased UE Strength, Dependent Transfers, Impaired Bed Mobility, Impaired Cognition, Impaired Coordination, Impaired Funct Balance, Impaired I ADL's, Impaired Self- Care Skills, Restricted Funct UE ROM, Visual-Perceptual Deficit Discharge Recommendations Plan/Recommendations: Continue POC Treatment Plan/Plan of Care Patient would benefit from OT for education, treatment and training to promote independence in ADL's, mobility, safety and/or upper extremity function for ADL's. Plan of Care: ADL Retraining, Functional Mobility, UE Funct Exercise/Act, UE Neuromus Re-Ed/Coord, Visual/Perceptual Retrain Treatment Duration: Apr 25, 2020 Frequency: At least 5 of 7 days/Wk (IRF) Estimated Hrs Per Day: 1.5 hours per day Agreement: Yes Rehab Potential: Good Time/GCodes Start Time: 09:00 Stop Time: 10:15 Total Time Billed (hr/min): 75 Billed Treatment Time 1 visit-ADL 2 (30 min) NM 3 (45 min) co-treat with PT 60 min ([id number]), individual treatment 15 min ([id number]) JOISAH ESCALANTE Apr 24, 2020 10:21
--- NOTE | 2020-04-24 11:54 | Speech Therapy Daily Note ---
Speech Daily Progress Note Subjective Date Seen by Provider: Apr 24, 2020 Time Seen by Provider: 00:30 Patient was resting in bed this am. He had not received any therapy when I entered. Objective The patient will complete memory tasks related to his daily needs at 90% or greater with minimal cues. Assessment Assessment Current Status: Good Progress Treatment Plan Continue Plan of Care Speech Short Term Goals Short Term Goals Short Term Goals 1) Patient will complete memory tasks related to his daily needs at 90% or greater with minimal cues. 2) Patient will complete safety awareness tasks related to his daily needs at 90% or greater with minimal cues. 3) Patient will complete problem solving tasks related to his daily needs at 90% or greater with minimal cues. 4) Patient will tolerate least restrictive diet level without s/s of aspiration at 90% or greater. 5) Patient/caregiver will utilize compensatory strategies as trained at 90% or greater with minimal cues. Speech Usp Goals [facility] Agronomist Goals Patient will improve cognitive-communication necessary for safety and daily living tasks with minimal assist. Patient will maintain adequate nutrition/hydration via safe effective swallow function. Speech-Plan Patient/Family Goals Patient/Family Goals: Patient plans on returning to his home with family upon discharge. Treatment Plan Speech Therapy Treatment Plan: Continue Plan of Care Treatment Duration: Apr 12, 2020 Frequency: 5 times per week Estimated Hrs Per Day: .5 hour per day Rehab Potential: Good Barriers to Learning: Patient's recent CVA, however cognitive deficits are resolving well Pt/Family Agrees to Plan: Yes Safety Risks/Education Teaching Recipient: Patient Teaching Methods: Demonstration, Discussion Response to Teaching: Verbalize Understanding, Return Demonstration Education Topics Provided: Continued safety Time Speech Therapy Time In: 08:30 Speech Therapy Time Out: 09:00 Total Billed Time: 30 Billed Treatment Time 1, BRIAN Ahuja Apr 24, 2020 11:54
--- NOTE | 2020-04-24 12:23 | Physical Therapy Daily Note ---
PT Daily Note-Current Subjective Pt alert, lying in bed. Pt agrees to therapy. Pt c/o pain in neck, does not rate, applied medicated ointment for pain to back of neck. Pt stated no nausea at this time. Mental Status Patient Orientation: Person, Place, Situation Transfers SCALE: Activities may be completed with or without assistive devices. 0-Bghbjdvilt-gltpkhe completes the activity by him/herself with no assistance from a helper. 5-Set-up or Clean-up Assistance-helper sets up or cleans up; patient completes activity. [place] assists only prior to or following the activity. 4-Supervision or Touching Assistance-helper provides verbal cues and/or touchi ng/steadying and/or contact guard assistance as patient completes activity. Assistance may be provided throughout the activity or intermittently. 3-Partial/Moderate Assistance-helper does LESS THAN HALF the effort. [place] lifts, holds or supports trunk or limbs, but provides less than half the effort. 2-Substantial/Maximal Assistance-helper does MORE THAN HALF the effort. [place] lifts or holds trunk or limbs and provides more than half the effort. 1-Xfercmjeo-kwpczs does ALL the effort. Patient does none of the effort to complete the activity. Or, the assistance of 2 or more helpers is required for the patient to complete the activity. If activity was not attempted, code reason: 7-Patient Refused. 9-Not Applicable-not attempted and the patient did not perform the activity before the current illness, exacerbation or injury. 10-Not Attempted due to Environmental Limitations-(lack of equipment, weather restraints, etc.). 88-Not Attempted due to Medical Conditions or Safety Concerns. Sit to Lying (QC): 4 Lying to Sitting/Side of Bed(Q: 4 Sit to Stand (QC): 4 Chair/Exe-uz-Ixany Xfer(QC): 4 Weight Bearing Full Weight Bearing Full Weight Bearing Wheelchair Training Does the Pt Use a Wheelchair?: Yes Wheel 50 ft with 2 turns (QC): 4 Wheel 150 ft (QC): 4 Type of Wheelchair: Manual Exercises Standing: Sit to Stand Standing Reps: 3 Treatments OT/PT co-treat ([id number]), skills of 2 clinicians are required to complete skilled instruction and physical management due to neuromuscular retraining for mobility, transfers and ADLs. PT worked mobility, transfers and B LE movement. OT working on ADLs, mobility and B UE movement. No intentional movement noted in L UE, tone noted. Min A with verbal cues to sequence task, pt able to go from supine to EOB. Pt transferred from EOB to w/c with min A x1 with assist of 2nd person for safety due to pt's impulsiveness. Pt. wheeled from room to rehab gym with physical and verbal cues to maneuver around corners and to avoid objects on L side due to significant L side neglect. Pt. pulled to stand using outside parallel bars to perform sit to stand x3 with assist x2 due to decreased balance and impulsiveness. Pt needed max assist to support affected leg but CGA to support his trunk when standing up from w/c. Pt propelled w/c back to room and requested to lay in bed. Pt continues to work with OT at end of PT tx. Assessment Current Status: Good Progress Pt in good spirits and continues to makes progress with strength demonstrated with standing. PT Short Term Goals Short Term Goals Time Frame: Apr 04, 2020 Roll Left & Right: 3 Sit to lyin Lying to sitting on side of be: 3 Sit to stand: 3 Chair/cgf-sa-wcwkt transfer: 2 PT Bobbin Winder Goals Alf Goals PT Alf Goals Time Frame: Apr 18, 2020 Roll Left & Right (QC): 3 (Pablo) Sit to Lying (QC): 3 (Pablo) Lying-Sitting on Side/Bed(QC): 3 (Pablo) Sit to Stand (QC): 3 (Pablo) Chair/Pgw-iy-Helgy Xfer(QC): 3 (Pablo) Toilet Transfer (QC): 3 (Pablo) Car Transfer (QC): 3 (mod A) Does the Patient Walk: No and Walking Goal NOT indicated Walk 10 feet (QC): 88 Walk 50ft with 2 Turns (QC): 88 Walk 150 ft (QC): 88 Walking 10ft on Uneven Surface: 88 1 Step (curb) (QC): 88 4 Steps (QC): 88 12 Steps (QC): 88 Picking up an Object (QC): 88 Does the Pt use WC or Scooter?: Yes Wheel 50 feet with 2 turns (QC: 3 (Pablo) Type: Manual Wheel 150 feet: 3 (Pablo) Type: Manual PT Plan Problem List Problem List: Activity Tolerance, Functional Strength, Safety, Balance, Transfer, Bed Mobility Treatment/Plan Treatment Plan: Continue Plan of Care Treatment Plan: Bed Mobility, Education, Functional Activity [place], Functional Strength, Group Therapy, Gait, Safety, Therapeutic Exercise, Transfers Treatment Duration: Apr 18, 2020 Frequency: At least 5 of 7 days/Wk (IRF) Estimated Hrs Per Day: 1.5 hours per day Patient and/or Family Agrees t: Yes Safety Risks/Education Patient Education: Transfer Techniques, Correct Positioning, Safety Issues Teaching Recipient: Patient Teaching Methods: Discussion Response to Teaching: Verbalize Understanding Time/GCodes Time In: 900 Time Out: 1000 Total Billed Treatment Time: 60 Total Billed Treatment 1, FA x4 (60m) Co-treat w/OT 60m MONSE SANCHEZ PTA Apr 24, 2020 12:23
[2020-04-24] MEDS: BACLOFEN 10 MG (LIORESAL) TAB PO SCH (12:56)
--- NOTE | 2020-04-24 14:48 | Physical Therapy Rehab Re-Cert ---
PT Re-Certification Form Physical Therapy Treatment Plan: Continue Plan of Care Bed Mobility, Education, Functional Activity [place], Functional Strength, Group Therapy, Gait, Safety, Therapeutic Exercise, Transfers Treatment Duration: 2 weeks Frequency: At least 5 of 7 days/Wk (IRF) Estimated Hrs Per Day: 1.5 hours per day Patient and/or Family Agrees t: Yes Rehab Potential: Guarded From 04/18/20 to 05/02/20. Patient has made minimal progress with functional mobility, continue with current goals. PT Short Term Goals Short Term Goals Time Frame: Apr 04, 2020 Roll Left & Right: 3 Sit to lyin Lying to sitting on side of be: 3 Sit to stand: 3 Chair/npj-wx-volvt transfer: 2 PT [place] [facility] Goals [place] [facility] Goals PT [facility] Goals Time Frame: Apr 18, 2020 Roll Left & Right (QC): 3 (Pablo) Sit to Lying (QC): 3 (Pablo) Lying-Sitting on Side/Bed(QC): 3 (Pablo) Sit to Stand (QC): 3 (Pablo) Chair/Yha-ex-Qutat Xfer(QC): 3 (Pablo) Toilet Transfer (QC): 3 (Pablo) Car Transfer (QC): 3 (mod A) Does the Patient Walk: No and Walking Goal NOT indicated Walk 10 feet (QC): 88 Walk 50ft with 2 Turns (QC): 88 Walk 150 ft (QC): 88 Walking 10ft on Uneven Surface: 88 1 Step (curb) (QC): 88 4 Steps (QC): 88 12 Steps (QC): 88 Picking up an Object (QC): 88 Does the Pt use WC or Scooter?: Yes Wheel 50 feet with 2 turns (QC: 3 (Pablo) Type: Manual Wheel 150 feet: 3 (Pablo) Type: Manual MARK RYAN PT Apr 24, 2020 14:48
--- NOTE | 2020-04-24 15:10 | Physical Therapy Daily Note ---
PT Daily Note-Current Subjective Pt laying Supine in bed upon arrival. Pt agrees to PT for Ex. SP is present during tx. Pain Location: No Pain Reported Mental Status Patient Orientation: Person, Place, Situation Transfers SCALE: Activities may be completed with or without assistive devices. 4-Kpxarlnngi-ktscvsm completes the activity by him/herself with no assistance from a helper. 5-Set-up or Clean-up Assistance-helper sets up or cleans up; patient completes activity. [place] assists only prior to or following the activity. 4-Supervision or Touching Assistance-helper provides verbal cues and/or touching/steadying and/or contact guard assistance as patient completes activity. Assistance may be provided throughout the activity or intermittently. 3-Partial/Moderate Assistance-helper does LESS THAN HALF the effort. [place] lifts, holds or supports trunk or limbs, but provides less than half the effort. 2-Substantial/Maximal Assistance-helper does MORE THAN HALF the effort. [place] lifts or holds trunk or limbs and provides more than half the effort. 4-Yixcklrsu-ywgvge does ALL the effort. Patient does none of the effort to complete the activity. Or, the assistance of 2 or more helpers is required for the patient to complete the activity. If activity was not attempted, code reason: 7-Patient Refused. 9-Not Applicable-not attempted and the patient did not perform the activity before the current illness, exacerbation or injury. 10-Not Attempted due to Environmental Limitations-(lack of equipment, weather restraints, etc.). 88-Not Attempted due to Medical Conditions or Safety Concerns. Weight Bearing Full Weight Bearing Full Weight Bearing Exercises Supine Ex: Ankle pumps, Quad Set, Glut sets, Heel Slides, Hip abd/add Supine Reps: 20 Treatments Pt completes Supine Ex. Pt resting at end of tx with all needs met, call light in hand. Assessment Current Status: Fair Progress Pt tolerates tx well. PT Short Term Goals Short Term Goals Time Frame: Apr 04, 2020 Roll Left & Right: 3 Sit to lyin Lying to sitting on side of be: 3 Sit to stand: 3 Chair/igz-tx-sdovr transfer: 2 PT Mcc Goals Mcc Goals PT Mcc Goals Time Frame: Apr 18, 2020 Roll Left & Right (QC): 3 (Pablo) Sit to Lying (QC): 3 (Pablo) Lying-Sitting on Side/Bed(QC): 3 (Pablo) Sit to Stand (QC): 3 (Pablo) Chair/Toq-kc-Mubdq Xfer(QC): 3 (Pablo) Toilet Transfer (QC): 3 (Pablo) Car Transfer (QC): 3 (mod A) Does the Patient Walk: No and Walking Goal NOT indicated Walk 10 feet (QC): 88 Walk 50ft with 2 Turns (QC): 88 Walk 150 ft (QC): 88 Walking 10ft on Uneven Surface: 88 1 Step (curb) (QC): 88 4 Steps (QC): 88 12 Steps (QC): 88 Picking up an Object (QC): 88 Does the Pt use WC or Scooter?: Yes Wheel 50 feet with 2 turns (QC: 3 (Pablo) Type: Manual Wheel 150 feet: 3 (Pablo) Type: Manual PT Plan Problem List Problem List: Activity Tolerance, Functional Strength, Safety, Gait, Transfer Treatment/Plan Treatment Plan: Continue Plan of Care Treatment Plan: Bed Mobility, Education, Functional Activity [place], Functional Strength, Group Therapy, Gait, Safety, Therapeutic Exercise, Transfers Treatment Duration: Apr 18, 2020 Frequency: At least 5 of 7 days/Wk (IRF) Estimated Hrs Per Day: 1.5 hours per day Patient and/or Family Agrees t: Yes Safety Risks/Education Patient Education: Correct Positioning, Safety Issues Teaching Recipient: Patient, Significant Other Teaching Methods: Discussion Response to Teaching: Verbalize Understanding Time/GCodes Time In: 1415 Time Out: 1430 Total Billed Treatment Time: 15 Total Billed Treatment 1, EX (15m) MONSE SANCHEZ CASHIER WRAPPER Apr 24, 2020 15:10
[2020-04-24] MEDS ORDERED: WITCH HAZEL(TUCKS) 40 EA JAR TOP PRN (15:45)
[2020-04-24] MEDS: ENOXAPARIN 40 MG/0.4 ML (LOVENOX) SYR SC SCH (17:01)
--- NOTE | 2020-04-24 17:43 | Cardiology Progress Note ---
Cardiology SOAP Progress Note Subjective: No acute cardiac complaints. Objective: I&O/Vital Signs 04/24/20 09:00 O2 Delivery Room Air 04/24/20 00:00 Intake Total 1850 ml Output Total 800 ml Balance 1050 ml Constitutional: AAO x 3, PERRL, well-developed, well-nourished Respiratory: chest is bilaterally symmetric, lungs clear to auscultation Cardiovascular: regular rate-rhythm, S1 and S2 Gastrointestional: soft, audible bowel sounds Extremities: no lower extremity edema bilateral Neurologic/Psychiatric: facial droop (left), other (left sided flaccid) Skin: No rash on exposed areas, No ulcerations on exposed areas Results/Procedures: Labs Laboratory Tests 04/24/20 06:20: White Blood Count 7.1, Red Blood Count 4.22L, Hemoglobin 12.4L, Hematocrit 38L, Mean Corpuscular Volume 90, Mean Corpuscular Hemoglobin 29, Mean Corpuscular Hemoglobin Concent 33, Red Cell Distribution Width 13.7, Platelet Count 247, Mean Platelet Volume 11.5H, Neutrophils (%) (Auto) 65, Lymphocytes (%) (Auto) 28, Monocytes (%) (Auto) 6, Eosinophils (%) (Auto) 1, Basophils (%) (Auto) 0, Neutrophils # (Auto) 4.6, Lymphocytes # (Auto) 2.0, Monocytes # (Auto) 0.4, Eosinophils # (Auto) 0.1, Basophils # (Auto) 0.0, Sodium Level 141, Potassium Level 3.3L, Chloride Level 105, Carbon Dioxide Level 24, Anion Gap 12, Blood Urea Nitrogen 19H, Creatinine 0.85, Estimat Glomerular Filtration Rate > 60, BUN/Creatinine Ratio 22, Glucose Level 117H, Lactic Acid Level 1.50, Calcium Level 9.2, Corrected Calcium 9.2, Total Bilirubin 0.4, Aspartate Amino Transf (AST/SGOT) 18, Alanine Aminotransferase (ALT/SGPT) 21, Alkaline Phosphatase 65, Total Protein 7.1, Albumin 4.0, Procalcitonin 0.06 Microbiology 04/23/20 Urine Culture - Preliminary, Resulted Escherichia coli 04/10/20 MRSA Screen - Final, Complete MRSA not isolated A/P: Assessment/Dx: Hypertension, not well controlled Cryptogenic stroke - ILR implanted on 03-26-2020 Non-occlusive carotid dz, minimal plaque seen on carotid u/s of March 25, 2020 Echocardiogram of March 26, 2020: 55-65% showed normal LV function with no wall motion abnormalities. Negative bubble study ruled out significant intracardiac shunting (+) COVID antibody on testing of March 25, 2020 Plan: BP control Monitor labs from time to time Thank you for your consultation. Please call me if you have any questions. Tiesha Arevalo MD, FACP, FACC, FSCAI, FHRS, CCDS Interventional Cardiology Cardiac Electrophysiology Vascular Medicine and Endovascular Interventions Focused Exam Lactate Level 04/24/20 06:20: Lactic Acid Level 1.50 Shaggy AREVALO MD Apr 24, 2020 17:43
[2020-04-24 18:00] VITALS: BP 119/70
[2020-04-24] MEDS: SERTRALINE 50 MG (ZOLOFT) TABLET PO SCH (21:02)
[2020-04-25 06:00] VITALS: BP 118/68
[2020-04-25] MEDS: BACLOFEN 10 MG (LIORESAL) TAB PO PRN (06:13)
[2020-04-25] MEDS: BETHANECHOL 25 MG (URECHOLINE) TAB PO SCH ×4 (06:13→21:28)
--- NOTE | 2020-04-25 06:49 | PM&R Progress Note ---
Subjective HPI/CC On Admission Date Seen by Provider: Apr 25, 2020 Time Seen by Provider: 10:00 Subjective/Events-last exam 04/25/20: Bowels have not moved Still a little bit nauseated UTI treatment shows resistant to Bactrim so Dr. Drake will manage that and change antibiotics Overall doing pretty well otherwise 04/24/20: No more episodes of nausea, vomiting or constipation Changing Tux hemorrhoid pads to prn Overall feels like he is doing pretty well Disposition planned in the near future 04/23/20: UA and urine culture obtained by Dr. Drake Bactrim DS BID ordered Vomiting and nausea noted at times Dulcolax suppository will be given Lidocaine patch will be placed on is back 04/22/20: Catheter was required today, removing 450 CCs No pain is reported Overall participating in therapy No falls Using mehnaz lifts 04/21/20: Smearing BM so will place on commode to see if he can have a BM c/o urination with dysuria so will monitor that closely Multiple caths recently increased risk for UTI 04/20/2020: Patient slept well last night Urology saw him and thinks everything is going pretty well He only voids about once a day but he does have complete evacuation of the bladder No more nausea and vomiting like yesterday Bowels move yesterday but needs to maintain a good bowel regimen 04/19/20: Had another episode of nausea and vomiting Had two incontinent episodes because of the vomiting Bowels moved and it was large and he became Diaphoretic He's very motivated in therapy Will schedule laxatives 04/18/20: Nauseated with physical therapy again today Vomited yesterday Zofran was given today Bowels moved four days ago will start suppository in fleets No in/out catheter required 04/17/20: Patient required IN/OUT Catheter x2 Ongoing issue with Bladder retention Bowels not moving so will be given meds again Overall doing very well 04/16/20 Preston has been discontinued and voiding well Bladder scan and In and Out Caths if needed Left sided weakness remains Very motivated appears to be depressed currently today Baclofen in the morning really helps him so will continue that Dr Drake placed him on Bactrim for UTI e coli Labs noted Mehnaz lift required Preston cath replaced and will await Urology plan Slept well Checked meds and labs Conferred with RN Reviewed therapy notes Review of Systems General: Fatigue, Malaise Neurological: Weakness Focused Exam Lactate Level 04/24/20 06:20: Lactic Acid Level 1.50 Objective Exam Vital Signs Vital Signs Date Time Temp Pulse Resp B/P (MAP) Pulse Ox O2 Delivery O2 Flow Rate FiO2 04/25/20 18:00 36.7 69 16 121/63 (82) 98 Room Air Capillary Refill : Less Than 3 Seconds General Appearance: No Apparent Distress, WD/WN, Chronically ill HEENT: PERRL/EOMI, Normal ENT Inspection, Pharynx Normal Neck: Full Range of Motion, Normal Inspection, Non Tender, Supple, Carotid Bruit Respiratory: Chest Non Tender, Lungs Clear, Normal Breath Sounds, No Accessory Muscle Use, No Respiratory Distress Cardiovascular: Regular Rate, Rhythm, No Edema, No Gallop, No JVD, No Murmur, Normal Peripheral Pulses Gastrointestinal: Normal Bowel Sounds, No Organomegaly, No Pulsatile Mass, Non Tender, Soft Back: Normal Inspection, No CVA Tenderness, No Vertebral Tenderness Extremity: Normal Capillary Refill, Normal Inspection, Normal Range of Motion (except left side), Non Tender, No Calf Tenderness, No Pedal Edema Neurologic/Psychiatric: Alert, Oriented x3, No Motor/Sensory Deficits, Normal Mood/Affect, Depressed Affect, Facial Droop (left), Motor Weakness (left sided p aresis 0/5 flaccid) Skin: Normal Color, Warm/Dry Lymphatic: No Adenopathy Results/Procedures Lab Patient resulted labs reviewed. FIM Transfers Therapy Code Descriptions/Definitions Functional [place] Measure: 0=Not Assessed/NA 4=Minimal Assistance 1=Total Assistance 5=Supervision or Setup 2=Maximal Assistance 6=Modified [place] 3=Moderate Assistance 7=Complete IndependenceSCALE: Activities may be completed with or without assistive devices. 9-Dbxzjloypt-gorueca completes the activity by him/herself with no assistance from a helper. 5-Set-up or Clean-up Assistance-helper sets up or cleans up; patient completes activity. [place] assists only prior to or following the activity. 4-Supervision or Touching Assistance-helper provides verbal cues and/or touching/steadying and/or contact guard assistance as patient completes activity. Assistance may be provided throughout the activity or intermittently. 3-Partial/Moderate Assistance-helper does LESS THAN HALF the effort. [place] lifts, holds or supports trunk or limbs, but provides less than half the effort. 2-Substantial/Maximal Assistance-helper does MORE THAN HALF the effort. [place] lifts or holds trunk or limbs and provides more than half the effort. 4-Kvucyjtuo-uvlbmm does ALL the effort. Patient does none of the effort to complete the activity. Or, the assistance of 2 or more helpers is required for the patient to complete the activity. If activity was not attempted, code reason: 7-Patient Refused. 9-Not Applicable-not attempted and the patient did not perform the activity before the current illness, exacerbation or injury. 10-Not Attempted due to Environmental Limitations-(lack of equipment, weather restraints, etc.). 88-Not Attempted due to Medical Conditions or Safety Concerns. Roll Left to Right (QC): 3 Sit to Lying (QC): 4 Sit to Stand (QC): 4 Chair/Zin-zh-Qiumb Xfer(QC): 4 Car Transfer (QC): 1 Gait Training Does the Patient Walk?: Yes Distance: 6'x4 Walk 10 feet (QC): 88 Walk 50 ft with 2 Turns(QC): 88 Walk 150 ft (QC): 88 Walking 10ft/uneven surface-QC: 88 Gait Persons Needed: 3 Gait Assistive Device: Parallel Bars Wheelchair Training Does the Pt Use a Wheelchair?: Yes Distance: 150' Wheel 50 ft with 2 turns (QC): 4 Wheel 150 ft (QC): 4 Type of Wheelchair: Manual Stair Training 1 Step (curb) (QC): 88 4 Steps (QC): 88 12 Steps (QC): 88 Balance Picking up an Object (QC): 88 ADL-Treatment Eating (QC): 5 Oral Hygiene (QC): 5 Bathing Location: L Arm, R Arm, L Upper Leg, R Upper Leg, Chest, Perineal Area Shower/Bathe Self (QC): 3 Upper Body Dressing (QC): 2 (Pt continues to work on donning shirt with one handed technique, mod A to complete with verbal and physical cues.) Lower Body Dressing (QC): 2 (Max A when completing in supine. Pt assists with rolling side to side.) On/Off Footwear (QC): 2 Toileting Hygiene (QC): 1 Toilet Transfer (QC): 2 Assessment/Plan Assessment and Plan Assess & Plan/Chief Complaint Assessment: Catastrophic CVA with left sided flaccidity Left facial droop COVID-19 antibody + Bipolar disorder Autism spectrum Urinary retention Preston cath in place consulted Dr Drake Plan: IRF protocol Dr Drake consultation Monitor bowel function Fall risk CBD oil Mehnaz lift Voiding much better on his own Maintain bladder meds Bowel regimen Decreasing pain medication 04/01/20: Voltaren gel for back pain Lortab for pain Mehnaz lift completely no sit-2-stand ability Flaccid left side continues 04/02/20: Patient went to father's today Continue Voltaren gel for back pain Sit to stand no longer an option needs Mehnaz lift 04/03/20: Bowels moved 2 days ago Laxatives ordered Discontinue the Preston catheter and Dr. Matias will monitor closely for retention Completed Augmentin Baclofen and pain medication taken on a real regular basis prone for dependency and addiction potential 04/04/20: Urology management of urinary retention since catheter removed Continue pain management but addiction potential noted Air mattress to prevent skin breakdown Laxatives due to constipation now 04/05/20: Bowels still not moving, supp and Fleets and SSE will be given Decrease pain meds to Q6hrs due to overuse and narcotic bowel noted complications Addiction potential noted Preston cath replaced and Flomax and Urecholine maintained now 04/06/20: Weaned Lortab Baclofen prn is working well BM regimen to continue Preston cath 04/07/20: Baclofen 10mg at night Maintain BM regimen Likely preston cath will be required again 04/08/20: Preston reinserted Labs stable BM regimen 04/09/20: Improvement in spontaneous urination Maintain Flomax and Urecholine Monitor closely 04/10/20: Disposition pending Continue aggressive therapy Cystoscopy Bladder meds 04/11/20: Had Cysto today by Urology Urinalysis is pending Pain pill on rare occasions 04/12/20: Maintain Baclofen Dr. Drake to manage Ecoli UTI Maintain Mehnaz lift In/Out catheter prn 04/13/20: UTI Tx Bactrim Monitor closely 04/14/20: UTI Tx Check labs in am 04/15/20: Tucks helping with Hemorrhoids Labs reviewed Baclofen working well Last pain pill was 4 days ago 04/17/20: Laxatives Bladder management Family education 04/18/20: Monitor nausea and vomiting Needs suppository or enema today Monitor closely 04/19/20: Monitor nausea and vomiting Laxatives will be ordered on a more scheduled basis Monitor closely 04/20/2020: Continue bowel regimen Monitor for urinary retention Aggressive therapy 04/21/20: Monitor dysuria Monitor labs BM regimen 04/22/20: Catheter as needed for retention Labs reviewed all normal Continue aggressive treatment 04/23/20: UTI diagnosed by urology Bactrim was started again Vomiting and nauseated Will give suppository for constipation today Lidocaine patch for his back per 's request 04/24/20: Continue aggressive bowel regimen Follow up on urine culture Scopolamine patch as needed 04/25/20: Bowel regimen to prevent constipation UTI is resistant to Bactrim will change that (1) Acute right MCA stroke Status: Acute (2) Facial droop due to cerebrovascular accident (CVA) (3) Bipolar disorder (4) Autism spectrum (5) Urinary retention (6) Preston catheter in place (7) Coronavirus infection, unspecified Status: Chronic (8) Left-sided neglect Status: Acute (9) Dysphasia due to recent cerebrovascular accident (CVA) Status: Acute AIDE GATICA DO Apr 25, 2020 06:49
[2020-04-25] MEDS: TRIM/SULFAMETH 160/800 (SEPTRA DS) TAB PO SCH (10:24)
[2020-04-25] MEDS: polyethylene glycoL POWDER 17 GM (MIRALAX) PACK PO SCH ×2 (10:24→22:17)
[2020-04-25] MEDS: SENNA W/DOCUSATE (SENOKOT S) TABLET PO SCH ×2 (10:25→21:28)
[2020-04-25] MEDS: DOCUSATE SODIUM 100 MG (COLACE) CAP PO SCH ×2 (10:25→21:28)
[2020-04-25] MEDS: meTOproloL SUCCINATE 50 MG (TOPROL XL) TAB PO SCH (10:25)
[2020-04-25] MEDS: ASPIRIN 325 MG (5 GR) TABLET PO SCH (10:25)
[2020-04-25] MEDS: TAMSULOSIN 0.4 MG (FLOMAX) CAP PO SCH ×2 (10:25→21:28)
--- NOTE | 2020-04-25 10:30 | Occupational Ther Daily Note ---
OT Current Status-Daily Note Subjective No pain reported. Appearance Pt. in bed. Agrees to work with OT. Mental Status/Objective Patient Orientation: Person, Place ADL-Treatment Therapy Code Descriptions/Definitions Functional [place] Measure: 0=Not Assessed/NA 4=Minimal Assistance 1=Total Assistance 5=Supervision or Setup 2=Maximal Assistance 6=Modified [place] 3=Moderate Assistance 7=Complete IndependenceSCALE: Activities may be completed with or without assistive devices. 9-Hqcbfucmrm-lthoqxr completes the activity by him/herself with no assistance from a helper. 5-Set-up or Clean-up Assistance-helper sets up or cleans up; patient completes activity. [place] assists only prior to or following the activity. 4-Supervision or Touching Assistance-helper provides verbal cues and/or touching/steadying and/or contact guard assistance as patient completes activity. Assistance may be provided throughout the activity or intermittently. 3-Partial/Moderate Assistance-helper does LESS THAN HALF the effort. [place] lifts, holds or supports trunk or limbs, but provides less than half the effort. 2-Substantial/Maximal Assistance-helper does MORE THAN HALF the effort. [place] lifts or holds trunk or limbs and provides more than half the effort. 3-Ffqwntxvn-ulhxyh does ALL the effort. Patient does none of the effort to complete the activity. Or, the assistance of 2 or more helpers is required for the patient to complete the activity. If activity was not attempted, code reason: 7-Patient Refused. 9-Not Applicable-not attempted and the patient did not perform the activity before the current illness, exacerbation or injury. 10-Not Attempted due to Environmental Limitations-(lack of equipment, weather restraints, etc.). 88-Not Attempted due to Medical Conditions or Safety Concerns. Shower/Bathe Self (QC): 3 (Mod assist overall. Pt. requires cues to sequence and attempt different areas of body during shower.) Upper Body Dressing (QC): 2 (Attempted "flip" method overhead, as pt. has been using this method. Required max assist for this.) Lower Body Dressing (QC): 1 On/Off Footwear: 1 (Pt. is able to raise right LE, but is unable to hold sock or shoe, or move left LE.) Pt. agrees to work on ADL skills. Pt. transferred supine-sit with mod assist, and sit-stand/transfer to wheelchair with mod assist. Pt. able to self propel to large shower room. After ADLs in shower room, pt. taken to therapy gym. Worked on sit-stands at parallel bar, with mirror in front. Required mod x 2 to stand at bar and attempt to correct posture. Noted lean to left and midline shift. OT placed left hand on bar and left foot flat on floor. Completed 3 sit-stands with standing approximately 1-2 minutes each time. OT then worked on left UE for stretch and positioning. Pt. able to tolerate approximately 90 degrees in shoulder flexion/abduction. Wrist extension tolerated with finger extension. Pt. does report discomfort however, and so multiple rest breaks taken. At this time, PT/OT completed co-treatment for standing/ambulation and UE positioning. PT worked on sit-gettering operator parallel bars while OT positioned left hand and assisted with weight shifts. Pt. ambulated distance of bars approximately 4 times, with max x 2 each time. Rested and then pt. with PT at end of OT treatment. Education OT Patient Education: Correct positioning, Modified ADL techniques, Progress toward Goal/Update tx plan, Purpose of tx/functional activities, Reviewed precautions, Rehab process, Transfer techniques Teaching Recipient: Patient Teaching Methods: Demonstration, Discussion Response to Teaching: Verbalize Understanding, Return Demonstration OT Short Term Goals Short Term Goals Time Frame: Apr 11, 2020 Eatin Oral hygiene: 3 Toileting hygiene: 3 Shower/bathe self: 2 Upper body dressin Lower body dressin Putting on/taking off footwear: 2 OT Karate Teacher Goals Long-Term Goals Time Frame: Apr 25, 2020 Eating (QC): 4 Oral Hygiene (QC): 4 Toileting Hygiene (QC): 3 Shower/Bathe Self (QC): 3 Upper Body Dressing (QC): 4 Lower Body Dressing (QC): 4 On/Off Footwear (QC): 4 Additional Goals: 1-Demonstrate ADL Tasks, 2-Verbalize Understanding, 3- ImproveStrength/[place] 1=Demonstrate adherence to instructed precautions during ADL tasks. 2=Patient will verbalize/demonstrate understanding of assistive devices/modifications for ADL. 3=Patient will improve strength/tolerance for activity to enable patient to perform ADL's. OT Education/Plan Problem List/Assessment Assessment: Decreased Activ Tolerance, Decreased Safety Aware, Decreased UE Strength, Dependent Transfers, Impaired Bed Mobility, Impaired Cognition, Impaired Coordination, Impaired Funct Balance, Impaired I ADL's, Impaired Self- Care Skills, Restricted Funct UE ROM, Visual-Perceptual Deficit Discharge Recommendations Plan/Recommendations: Continue POC Therapy Discharge Recommendati: 24 Hour Supervision Treatment Plan/Plan of Care Treatment,Training & Education: Yes Patient would benefit from OT for education, treatment and training to promote independence in ADL's, mobility, safety and/or upper extremity function for ADL's. Plan of Care: ADL Retraining, Functional Mobility, UE Funct Exercise/Act, UE Neuromus Re-Ed/Coord, Visual/Perceptual Retrain Treatment Duration: Apr 25, 2020 Frequency: At least 5 of 7 days/Wk (IRF) Estimated Hrs Per Day: 1.5 hours per day Agreement: Yes Rehab Potential: Fair Time/GCodes Start Time: 08:00 Stop Time: 09:30 Total Time Billed (hr/min): 90 Billed Treatment Time 5268-7450 1, ADL x 45minutes, NM x 15minutes [id number] FA x 30minutes Co-treatment with PT. Please see above note for designated roles. CITLALLI LANDEROS OT Apr 25, 2020 10:30
[2020-04-25] MEDS: ONDANSETRON 4 MG (ZOFRAN) ORAL DISSOLVE TAB PO PRN (10:31)
--- NOTE | 2020-04-25 10:56 | Occ Therapy Rehab Re-Cert ---
OT Re-Certification Form Plan of Care: ADL Retraining, Functional Mobility, UE Funct Exercise/Act, UE Neuromus Re-Ed/Coord, Visual/Perceptual Retrain Pt. has been seen by occupational therapy to increase overall strength and independence with daily skills. Pt. has made progress in all functional areas with ADL training, mobility, and transfers. Has not gained functional movement in left UE. OT is working towards education to pt. and spouse regarding positioning, using splint, and PROM. Goals are continued for pt. to require CGA/SBA with ADL skills. New goal made for pt. to be able to shower with min assist only. Continue treatment for UE strength/mobility, ADL skills, visual perceptual skills, and transfers. Treatment Duration: 4 weeks Frequency: At least 5 of 7 days/Wk (IRF) Estimated Hrs Per Day: 1.5 hours per day Agreement: Yes Rehab Potential: Fair OT Short Term Goals Short Term Goals Time Frame: Apr 11, 2020 Eatin Oral hygiene: 3 Toileting hygiene: 3 Shower/bathe self: 2 Upper body dressin Lower body dressin Putting on/taking off footwear: 2 OT Patient Biller Goals Patient Biller Goals Time Frame: Apr 25, 2020 Eating (QC): 4 (met) Oral Hygiene (QC): 4 (continue) Toileting Hygiene (QC): 3 (continue) Shower/Bathe Self (QC): 3 (new goal- Min assist) Upper Body Dressing (QC): 4 (continue) Lower Body Dressing (QC): 4 (continue) On/Off Footwear (QC): 4 (continue) Additional Goals: 1-Demonstrate ADL Tasks, 2-Verbalize Understanding, 3-ImproveStrength/[place] 1=Demonstrate adherence to instructed precautions during ADL tasks. 2=Patient will verbalize/demonstrate understanding of assistive devices/modifications for ADL. 3=Patient will improve strength/tolerance for activity to enable patient to perform ADL's. CITLALLI LANDEROS OT Apr 25, 2020 10:56
--- NOTE | 2020-04-25 11:00 | Physical Therapy Daily Note ---
PT Daily Note-Current Subjective Patient in therapy gym pre tx, agrees to PT, no complaints of pain, will be co- treating with OT due to poor patient mobility, strength, endurance, left hemiplegia, the need to coordinate UE and LE during activity, poor sitting and standing balance. Appearance Patient BTB post tx with nurse call, phone, tray, all needs met, in room. Mental Status Patient Orientation: Person, Place, Situation Transfers SCALE: Activities may be completed with or without assistive devices. 9-Yhkujrkcwl-snhrcbe completes the activity by him/herself with no assistance from a helper. 5-Set-up or Clean-up Assistance-helper sets up or cleans up; patient completes activity. [place] assists only prior to or following the activity. 4-Supervision or Touching Assistance-helper provides verbal cues and/or touching/steadying and/or contact guard assistance as patient completes a ctivity. Assistance may be provided throughout the activity or intermittently. 3-Partial/Moderate Assistance-helper does LESS THAN HALF the effort. [place] lifts, holds or supports trunk or limbs, but provides less than half the effort. 2-Substantial/Maximal Assistance-helper does MORE THAN HALF the effort. [place] lifts or holds trunk or limbs and provides more than half the effort. 4-Nvxmjxdvq-roqaax does ALL the effort. Patient does none of the effort to complete the activity. Or, the assistance of 2 or more helpers is required for the patient to complete the activity. If activity was not attempted, code reason: 7-Patient Refused. 9-Not Applicable-not attempted and the patient did not perform the activity before the current illness, exacerbation or injury. 10-Not Attempted due to Environmental Limitations-(lack of equipment, weather restraints, etc.). 88-Not Attempted due to Medical Conditions or Safety Concerns. Roll Left & Right (QC): 3 Sit to Lying (QC): 3 Sit to Stand (QC): 3 Chair/Tmp-vd-Oaezy Xfer(QC): 3 Patient in therapy gym, OT has already been working with him. Roll WC into parallel bars and ambulate 6'x3 with max assist, sit to stand 2 sets of 5, WC mobility training (min assist) 400', stand pivot to bed and positioned. Weight Bearing Full Weight Bearing Full Weight Bearing Treatments PT worked on bed mobility and transfers, ambulation, WC mobility, OT worked on UE positioning and safety during ambulation and standing. Assessment Current Status: Fair Progress improved WC mobility, patient has a tendency to run into things on the left side but can correct if cued PT Short Term Goals Short Term Goals Time Frame: Apr 04, 2020 Roll Left & Right: 3 Sit to lyin Lying to sitting on side of be: 3 Sit to stand: 3 Chair/gfs-do-ulsnq transfer: 2 PT Film Sound Coordinator Goals Nursing Home Goals PT Film Sound Coordinator Goals Time Frame: Apr 18, 2020 Roll Left & Right (QC): 3 (Pablo) Sit to Lying (QC): 3 (Pablo) Lying-Sitting on Side/Bed(QC): 3 (Pablo) Sit to Stand (QC): 3 (Pablo) Chair/Nhl-cf-Vgofq Xfer(QC): 3 (Pablo) Toilet Transfer (QC): 3 (Pablo) Car Transfer (QC): 3 (mod A) Does the Patient Walk: No and Walking Goal NOT indicated Walk 10 feet (QC): 88 Walk 50ft with 2 Turns (QC): 88 Walk 150 ft (QC): 88 Walking 10ft on Uneven Surface: 88 1 Step (curb) (QC): 88 4 Steps (QC): 88 12 Steps (QC): 88 Picking up an Object (QC): 88 Does the Pt use WC or Scooter?: Yes Wheel 50 feet with 2 turns (QC: 3 (Pablo) Type: Manual Wheel 150 feet: 3 (Pablo) Type: Manual PT Plan Problem List Problem List: Activity Tolerance, Functional Strength, Safety, Balance, Gait, Transfer, Bed Mobility, ROM Treatment/Plan Treatment Plan: Continue Plan of Care Treatment Plan: Bed Mobility, Education, Functional Activity [place], Functional Strength, Group Therapy, Gait, Safety, Therapeutic Exercise, Transfers Treatment Duration: Apr 18, 2020 Frequency: At least 5 of 7 days/Wk (IRF) Estimated Hrs Per Day: 1.5 hours per day Patient and/or Family Agrees t: Yes Safety Risks/Education Patient Education: Gait Training, Transfer Techniques, Correct Positioning, W/C Management, Safety Issues Teaching Recipient: Patient Teaching Methods: Demonstration, Discussion Response to Teaching: Reinforcement Needed Time/GCodes Time In: 0900 Time Out: 1000 Total Billed Treatment Time: 60 Total Billed Treatment 1 visit FA 60' co-treated with OT for 30' from [id number]. MARK RYAN PT Apr 25, 2020 11:00
--- NOTE | 2020-04-25 11:50 | Progress Note - Urology ---
Progress Note-Urology Progress Notes/Assess & Plan Progress/Assessment & Plan VOIDING BETTER WITH LESS NEED FOR ISC. UC&S NOTED AND BACTRIM DS CHANGED TO MACROBID Final Diagnosis URINE RETENTION (RESOLVING) AND UTI (TREATED) TIFFANIE WOMACK MD Apr 25, 2020 11:50
--- NOTE | 2020-04-25 11:53 | Speech Therapy Daily Note ---
Speech Daily Progress Note Subjective Date Seen by Provider: Apr 25, 2020 Time Seen by Provider: 00:30 Patient was resting in bed, at his side when I entered his room. Objective Patient completed general information trivia at the advanced level with 80% given minimal cues. Assessment Assessment Current Status: Good Progress Treatment Plan Continue Plan of Care Speech Short Term Goals Short Term Goals Short Term Goals 1) Patient will complete memory tasks related to his daily needs at 90% or greater with minimal cues. 2) Patient will complete safety awareness tasks related to his daily needs at 90% or greater with minimal cues. 3) Patient will complete problem solving tasks related to his daily needs at 90% or greater with minimal cues. 4) Patient will tolerate least restrictive diet level without s/s of aspiration at 90% or greater. 5) Patient/caregiver will utilize compensatory strategies as trained at 90% or greater with minimal cues. Speech Manager Internet Goals Manager Internet Goals Patient will improve cognitive-communication necessary for safety and daily living tasks with minimal assist. Patient will maintain adequate nutrition/hydration via safe effective swallow f unction. Speech-Plan Patient/Family Goals Patient/Family Goals: Patient plans on returning to his home with his upon discharge. Treatment Plan Speech Therapy Treatment Plan: Continue Plan of Care Treatment Duration: Apr 12, 2020 Frequency: 5 times per week Estimated Hrs Per Day: .5 hour per day Rehab Potential: Fair Barriers to Learning: Patient's CVA Pt/Family Agrees to Plan: Yes Safety Risks/Education Teaching Recipient: Patient, Significant Other Teaching Methods: Demonstration, Discussion Response to Teaching: Verbalize Understanding, Return Demonstration Education Topics Provided: Safety with ADL's Time Speech Therapy Time In: 11:00 Speech Therapy Time Out: 11:30 Total Billed Time: 30 Billed Treatment Time 1LEVI BETH[address] ST Apr 25, 2020 11:53
--- NOTE | 2020-04-25 14:42 | Physical Therapy Daily Note ---
PT Daily Note-Current Subjective Patient in bed pre tx, agrees to PT, no complaints of pain at rest. Appearance Patient in bed post tx with nurse call, phone, tray, in room. Mental Status Patient Orientation: Person, Place, Situation Transfers SCALE: Activities may be completed with or without assistive devices. 0-Ywnhuuuwyp-pqsgokc completes the activity by him/herself with no assistance from a helper. 5-Set-up or Clean-up Assistance-helper sets up or cleans up; patient completes activity. [place] assists only prior to or following the activity. 4-Supervision or Touching Assistance-helper provides verbal cues and/or touching/steadying and/or contact guard assistance as patient completes activity. Assistance may be provided throughout the activity or intermittently. 3-Partial/Moderate Assistance-helper does LESS THAN HALF the effort. [place] lifts, holds or supports trunk or limbs, but provides less than half the effort. 2-Substantial/Maximal Assistance-helper does MORE THAN HALF the effort. [place] lifts or holds trunk or limbs and provides more than half the effort. 2-Cuwhaaycq-zepvdp does ALL the effort. Patient does none of the effort to complete the activity. Or, the assistance of 2 or more helpers is required for the patient to complete the activity. If activity was not attempted, code reason: 7-Patient Refused. 9-Not Applicable-not attempted and the patient did not perform the activity before the current illness, exacerbation or injury. 10-Not Attempted due to Environmental Limitations-(lack of equipment, weather restraints, etc.). 88-Not Attempted due to Medical Conditions or Safety Concerns. Weight Bearing Full Weight Bearing Full Weight Bearing Exercises Supine Ex: Ankle pumps, Quad Set, Glut sets, Heel Slides, Short Arc Quads, Straight leg raise, Hip abd/add Supine Reps: 20 LLE PROM/stretching, seems to have increased muscle tone this afternoon, muscle spasms. Treatments ROM Assessment Current Status: Poor Progress Patient often needs multiple cues for directions during exercises PT Short Term Goals Short Term Goals Time Frame: Apr 04, 2020 Roll Left & Right: 3 Sit to lyin Lying to sitting on side of be: 3 Sit to stand: 3 Chair/xlp-vz-oeytv transfer: 2 PT Core Shaper Sides Goals Group Home Goals PT Group Home Goals Time Frame: Apr 18, 2020 Roll Left & Right (QC): 3 (Pablo) Sit to Lying (QC): 3 (Pablo) Lying-Sitting on Side/Bed(QC): 3 (Pablo) Sit to Stand (QC): 3 (Pablo) Chair/Qhp-xi-Napmb Xfer(QC): 3 (Pablo) Toilet Transfer (QC): 3 (Pablo) Car Transfer (QC): 3 (mod A) Does the Patient Walk: No and Walking Goal NOT indicated Walk 10 feet (QC): 88 Walk 50ft with 2 Turns (QC): 88 Walk 150 ft (QC): 88 Walking 10ft on Uneven Surface: 88 1 Step (curb) (QC): 88 4 Steps (QC): 88 12 Steps (QC): 88 Picking up an Object (QC): 88 Does the Pt use WC or Scooter?: Yes Wheel 50 feet with 2 turns (QC: 3 (Pablo) Type: Manual Wheel 150 feet: 3 (Pablo) Type: Manual PT Plan Problem List Problem List: Activity Tolerance, Functional Strength, Safety, Balance, Gait, Transfer, Bed Mobility, ROM Treatment/Plan Treatment Plan: Continue Plan of Care Treatment Plan: Bed Mobility, Education, Functional Activity [place], Functional Strength, Group Therapy, Gait, Safety, Therapeutic Exercise, Transfers Treatment Duration: Apr 18, 2020 Frequency: At least 5 of 7 days/Wk (IRF) Estimated Hrs Per Day: 1.5 hours per day Patient and/or Family Agrees t: Yes Safety Risks/Education Patient Education: Correct Positioning, Safety Issues Teaching Recipient: Patient Teaching Methods: Demonstration, Discussion Response to Teaching: Reinforcement Needed Time/GCodes Time In: 1425 Time Out: 1440 Total Billed Treatment Time: 15 Total Billed Treatment 1 visit EX MARK HEART PT Apr 25, 2020 14:42
[2020-04-25] MEDS: ENOXAPARIN 40 MG/0.4 ML (LOVENOX) SYR SC SCH (16:14)
[2020-04-25] MEDS: LIDOCAINE UROJET 2% GEL 10 ML PKG TOP PRN (16:29)
[2020-04-25] MEDS: NITROFURANTOIN 100 MG (MACROBID) CAPSULE PO SCH (17:15)
--- NOTE | 2020-04-25 17:52 | Cardiology Progress Note ---
Cardiology SOAP Progress Note Subjective: No cardiac complaints. Objective: I&O/Vital Signs 04/25/20 04/25/20 06:00 09:00 Temp 36.4 Pulse 70 Resp 20 B/P (MAP) 118/68 (85) Pulse Ox 98 O2 Delivery Room Air Room Air 04/25/20 00:00 Intake Total 1380 ml Output Total 250 ml Balance 1130 ml Constitutional: AAO x 3, PERRL, well-developed, well-nourished Respiratory: chest is bilaterally symmetric, lungs clear to auscultation Cardiovascular: regular rate-rhythm, S1 and S2 Gastrointestional: soft, audible bowel sounds Extremities: no lower extremity edema bilateral Neurologic/Psychiatric: facial droop (left), other (left sided flaccid) Skin: No rash on exposed areas, No ulcerations on exposed areas Results/Procedures: Labs Microbiology 04/23/20 Urine Culture - Final, Complete Escherichia coli 04/10/20 MRSA Screen - Final, Complete MRSA not isolated A/P: Assessment/Dx: Hypertension, not well controlled Cryptogenic stroke - ILR implanted on 03-26-2020 Non-occlusive carotid dz, minimal plaque seen on carotid u/s of March 25, 2020 Echocardiogram of March 26, 2020: 55-65% showed normal LV function with no wall motion abnormalities. Negative bubble study ruled out significant intracardiac shunting (+) COVID antibody on testing of March 25, 2020 Plan: BP control Monitor labs from time to time Thank you for your consultation. Please call me if you have any questions. Tiesha Arevalo MD, FACP, FACC, FSCAI, FHRS, CCDS Interventional Cardiology Cardiac Electrophysiology Vascular Medicine and Endovascular Interventions Focused Exam Lactate Level 04/24/20 06:20: Lactic Acid Level 1.50 Shaggy AREVALO MD Apr 25, 2020 17:51
[2020-04-25 18:00] VITALS: BP 121/63
[2020-04-25] MEDS ORDERED: NITROFURANTOIN 100 MG (MACROBID) CAPSULE PO SCH (21:00)
[2020-04-25] MEDS: SERTRALINE 50 MG (ZOLOFT) TABLET PO SCH (21:28)
[2020-04-25] MEDS: BACLOFEN 10 MG (LIORESAL) TAB PO SCH (21:28)
[2020-04-26 06:00] VITALS: BP 124/63
[2020-04-26] MEDS: BACLOFEN 10 MG (LIORESAL) TAB PO PRN (06:02)
[2020-04-26] MEDS: BETHANECHOL 25 MG (URECHOLINE) TAB PO SCH ×4 (06:02→22:01)
[2020-04-26] MEDS: TAMSULOSIN 0.4 MG (FLOMAX) CAP PO SCH ×2 (08:39→22:00)
[2020-04-26] MEDS: meTOproloL SUCCINATE 50 MG (TOPROL XL) TAB PO SCH (08:39)
[2020-04-26] MEDS: SENNA W/DOCUSATE (SENOKOT S) TABLET PO SCH ×2 (08:39→21:59)
[2020-04-26] MEDS: ASPIRIN 325 MG (5 GR) TABLET PO SCH (08:39)
[2020-04-26] MEDS: LACTULOSE SYRUP 10GM/15ML (ENULOSE) 30ML UDC PO PRN (08:39)
[2020-04-26] MEDS: NITROFURANTOIN 100 MG (MACROBID) CAPSULE PO SCH ×2 (08:39→18:29)
[2020-04-26] MEDS: DOCUSATE SODIUM 100 MG (COLACE) CAP PO SCH ×2 (08:39→22:00)
[2020-04-26] MEDS: polyethylene glycoL POWDER 17 GM (MIRALAX) PACK PO SCH ×2 (09:37→21:59)
--- NOTE | 2020-04-26 09:59 | PM&R Progress Note ---
Subjective HPI/CC On Admission Date Seen by Provider: Apr 26, 2020 Time Seen by Provider: 10:00 Subjective/Events-last exam 04/26/20: Actually stood up on his own without use of jhu-tw-tenww secured a wheelchair van Dr. Drake placed him on Macrobid for UTI Rectal suppository will be given every other day if no BM 04/25/20: Bowels have not moved Still a little bit nauseated UTI treatment shows resistant to Bactrim so Dr. Drake will manage that and change antibiotics Overall doing pretty well otherwise 04/24/20: No more episodes of nausea, vomiting or constipation Changing Tux hemorrhoid pads to prn Overall feels like he is doing pretty well Disposition planned in the near future 04/23/20: UA and urine culture obtained by Dr. Drake Bactrim DS BID ordered Vomiting and nausea noted at times Dulcolax suppository will be given Lidocaine patch will be placed on is back 04/22/20: Catheter was required today, removing 450 CCs No pain is reported Overall participating in therapy No falls Using mehnaz lifts 04/21/20: Smearing BM so will place on commode to see if he can have a BM c/o urination with dysuria so will monitor that closely Multiple caths recently increased risk for UTI 04/20/2020: Patient slept well last night Urology saw him and thinks everything is going pretty well He only voids about once a day but he does have complete evacuation of the bladder No more nausea and vomiting like yesterday Bowels move yesterday but needs to maintain a good bowel regimen 04/19/20: Had another episode of nausea and vomiting Had two incontinent episodes because of the vomiting Bowels moved and it was large and he became Diaphoretic He's very motivated in therapy Will schedule laxatives 04/18/20: Nauseated with physical therapy again today Vomited yesterday Zofran was given today Bowels moved four days ago will start suppository in fleets No in/out catheter required 04/17/20: Patient required IN/OUT Catheter x2 Ongoing issue with Bladder retention Bowels not moving so will be given meds again Overall doing very well 04/16/20 Preston has been discontinued and voiding well Bladder scan and In and Out Caths if needed Left sided weakness remains Very motivated appears to be depressed currently today Baclofen in the morning really helps him so will continue that Dr Drake placed him on Bactrim for UTI e coli Labs noted Mehnaz lift required Preston cath replaced and will await Urology plan Slept well Checked meds and labs Conferred with RN Reviewed therapy notes Review of Systems General: Fatigue, Malaise Neurological: Weakness Focused Exam Lactate Level 04/24/20 06:20: Lactic Acid Level 1.50 Objective Exam Vital Signs Vital Signs Date Time Temp Pulse Resp B/P (MAP) Pulse Ox O2 Delivery O2 Flow Rate FiO2 04/26/20 18:00 36.5 83 16 126/80 (95) 97 Room Air Capillary Refill : Less Than 3 Seconds General Appearance: No Apparent Distress, WD/WN, Chronically ill HEENT: PERRL/EOMI, Normal ENT Inspection, Pharynx Normal Neck: Full Range of Motion, Normal Inspection, Non Tender, Supple, Carotid Bruit Respiratory: Chest Non Tender, Lungs Clear, Normal Breath Sounds, No Accessory Muscle Use, No Respiratory Distress Cardiovascular: Regular Rate, Rhythm, No Edema, No Gallop, No JVD, No Murmur, Normal Peripheral Pulses Gastrointestinal: Normal Bowel Sounds, No Organomegaly, No Pulsatile Mass, Non Tender, Soft Back: Normal Inspection, No CVA Tenderness, No Vertebral Tenderness Extremity: Normal Capillary Refill, Normal Inspection, Normal Range of Motion (except left side), Non Tender, No Calf Tenderness, No Pedal Edema Neurologic/Psychiatric: Alert, Oriented x3, No Motor/Sensory Deficits, Normal Mood/Affect, Depressed Affect, Facial Droop (left), Motor Weakness (left sided paresis 0/5 flaccid) Skin: Normal Color, Warm/Dry Lymphatic: No Adenopathy Results/Procedures Lab Patient resulted labs reviewed. FIM Transfers Therapy Code Descriptions/Definitions Functional [place] Measure: 0=Not Assessed/NA 4=Minimal Assistance 1=Total Assistance 5=Supervision or Setup 2=Maximal Assistance 6=Modified [place] 3=Moderate Assistance 7=Complete IndependenceSCALE: Activities may be completed with or without assistive devices. 5-Tutsexsmyt-qnhlhzf completes the activity by him/herself with no assistance from a helper. 5-Set-up or Clean-up Assistance-helper sets up or cleans up; patient completes activity. [place] assists only prior to or following the activity. 4-Supervision or Touching Assistance-helper provides verbal cues and/or touching/steadying and/or contact guard assistance as patient completes activity. Assistance may be provided throughout the activity or intermittently. 3-Partial/Moderate Assistance-helper does LESS THAN HALF the effort. [place] lifts, holds or supports trunk or limbs, but provides less than half the effort. 2-Substantial/Maximal Assistance-helper does MORE THAN HALF the effort. [place] lifts or holds trunk or limbs and provides more than half the effort. 6-Uewzurpii-bufvis does ALL the effort. Patient does none of the effort to complete the activity. Or, the assistance of 2 or more helpers is required for the patient to complete the activity. If activity was not attempted, code reason: 7-Patient Refused. 9-Not Applicable-not attempted and the patient did not perform the activity before the current illness, exacerbation or injury. 10-Not Attempted due to Environmental Limitations-(lack of equipment, weather restraints, etc.). 88-Not Attempted due to Medical Conditions or Safety Concerns. Roll Left to Right (QC): 3 Sit to Lying (QC): 3 Sit to Stand (QC): 3 Chair/Err-nf-[place] Xfer(QC): 3 Car Transfer (QC): 1 Gait Training Does the Patient Walk?: Yes Distance: 6'x4 Walk 10 feet (QC): 88 Walk 50 ft with 2 Turns(QC): 88 Walk 150 ft (QC): 88 Walking 10ft/uneven surface-QC: 88 Gait Persons Needed: 3 Gait Assistive Device: Parallel Bars Wheelchair Training Does the Pt Use a Wheelchair?: Yes Distance: 150' Wheel 50 ft with 2 turns (QC): 4 Wheel 150 ft (QC): 4 Type of Wheelchair: Manual Stair Training 1 Step (curb) (QC): 88 4 Steps (QC): 88 12 Steps (QC): 88 Balance Picking up an Object (QC): 88 ADL-Treatment Eating (QC): 5 Oral Hygiene (QC): 5 Bathing Location: L Arm, R Arm, L Upper Leg, R Upper Leg, Chest, Perineal Area Shower/Bathe Self (QC): 3 (Mod assist overall. Pt. requires cues to sequence and attempt different areas of body during shower.) Upper Body Dressing (QC): 2 (Attempted "flip" method overhead, as pt. has been using this method. Required max assist for this.) Lower Body Dressing (QC): 1 On/Off Footwear (QC): 1 (Pt. is able to raise right LE, but is unable to hold sock or shoe, or move left LE.) Toileting Hygiene (QC): 1 Toilet Transfer (QC): 2 Assessment/Plan Assessment and Plan Assess & Plan/Chief Complaint Assessment: Catastrophic CVA with left sided flaccidity Left facial droop COVID-19 antibody + Bipolar disorder Autism spectrum Urinary retention Preston cath in place consulted Dr Drake Plan: IRF protocol Dr Drake consultation Monitor bowel function Fall risk CBD oil Mehnaz lift Voiding much better on his own Maintain bladder meds Bowel regimen Decreasing pain medication 04/01/20: Voltaren gel for back pain Lortab for pain Mehnaz lift completely no sit-2-stand ability Flaccid left side continues 04/02/20: Patient went to father's today Continue Voltaren gel for back pain Sit to stand no longer an option needs Mehnaz lift 04/03/20: Bowels moved 2 days ago Laxatives ordered Discontinue the Preston catheter and Dr. Matias will monitor closely for retention Completed Augmentin Baclofen and pain medication taken on a real regular basis prone for dependency and addiction potential 04/04/20: Urology management of urinary retention since catheter removed Continue pain management but addiction potential noted Air mattress to prevent skin breakdown Laxatives due to constipation now 04/05/20: Bowels still not moving, supp and Fleets and SSE will be given Decrease pain meds to Q6hrs due to overuse and narcotic bowel noted complications Addiction potential noted Preston cath replaced and Flomax and Urecholine maintained now 04/06/20: Weaned Lortab Baclofen prn is working well BM regimen to continue Preston cath 04/07/20: Baclofen 10mg at night Maintain BM regimen Likely preston cath will be required again 04/08/20: Preston reinserted Labs stable BM regimen 04/09/20: Improvement in spontaneous urination Maintain Flomax and Urecholine Monitor closely 04/10/20: Disposition pending Continue aggressive therapy Cystoscopy Bladder meds 04/11/20: Had Cysto today by Urology Urinalysis is pending Pain pill on rare occasions 04/12/20: Maintain Baclofen Dr. Drake to manage Ecoli UTI Maintain Mehnaz lift In/Out catheter prn 04/13/20: UTI Tx Bactrim Monitor closely 04/14/20: UTI Tx Check labs in am 04/15/20: Radha helping with Hemorrhoids Labs reviewed Baclofen working well Last pain pill was 4 days ago 04/17/20: Laxatives Bladder management Family education 04/18/20: Monitor nausea and vomiting Needs suppository or enema today Monitor closely 04/19/20: Monitor nausea and vomiting Laxatives will be ordered on a more scheduled basis Monitor closely 04/20/2020: Continue bowel regimen Monitor for urinary retention Aggressive therapy 04/21/20: Monitor dysuria Monitor labs BM regimen 04/22/20: Catheter as needed for retention Labs reviewed all normal Continue aggressive treatment 04/23/20: UTI diagnosed by urology Bactrim was started again Vomiting and nauseated Will give suppository for constipation today Lidocaine patch for his back per 's request 04/24/20: Continue aggressive bowel regimen Follow up on urine culture Scopolamine patch as needed 04/25/20: Bowel regimen to prevent constipation UTI is resistant to Bactrim will change that 04/26/20: Dramatic improvement in his ability to stand UTI treatment with Macrobid Will do a rectal suppository every other day if he hasn't had a bowel movement on his own (1) Acute right MCA stroke Status: Acute (2) Facial droop due to cerebrovascular accident (CVA) (3) Bipolar disorder (4) Autism spectrum (5) Urinary retention (6) Preston catheter in place (7) Coronavirus infection, unspecified Status: Chronic (8) Left-sided neglect Status: Acute (9) Dysphasia due to recent cerebrovascular accident (CVA) Status: Acute AIDE GATICA DO Apr 26, 2020 09:59
--- NOTE | 2020-04-26 10:43 | Occupational Ther Daily Note ---
OT Current Status-Daily Note Subjective Pt seen in room, up in bed, agreeable to OT. No pain reported. Appearance Alert, cooperative Mental Status/Objective Patient Orientation: Person, Place, Time, Situation ADL-Treatment Pt needed min assist to move from supine to sit EOB and mod assist to transfer to w/c. Pt was able to help direct transfer, such as placement of w/c. He helped propel himself to bathroom but needed assist to position w/c at sink. He cleaned his teeth with setup, using toothette, and shaved with min assist, cues to shave L side and also to slow down, as he moves rapidly and somewhat impulsively, to avoid cuts. He also combed his hair with setup. He had some difficulty maneuvering and motor planning w/c to get out of the bathroom and hallway to go to the gym. L hand splint applied for positioning. No active L UE movement observed during ADLs or neuromotor tx. Therapy Code Descriptions/Definitions Functional [place] Measure: 0=Not Assessed/NA 4=Minimal Assistance 1=Total Assistance 5=Supervision or Setup 2=Maximal Assistance 6=Modified [place] 3=Moderate Assistance 7=Complete IndependenceSCALE: Activities may be completed with or without assistive devices. 0-Ecrpgeiros-cookbat completes the activity by him/herself with no assistance from a helper. 5-Set-up or Clean-up Assistance-helper sets up or cleans up; patient completes activity. [place] assists only prior to or following the activity. 4-Supervision or Touching Assistance-helper provides verbal cues and/or touching/steadying and/or contact guard assistance as patient completes activity. Assistance may be provided throughout the activity or intermittently. 3-Partial/Moderate Assistance-helper does LESS THAN HALF the effort. [place] lifts, holds or supports trunk or limbs, but provides less than half the effort. 2-Substantial/Maximal Assistance-helper does MORE THAN HALF the effort. [place] lifts or holds trunk or limbs and provides more than half the effort. 1-Zkzyoaxas-mowwga does ALL the effort. Patient does none of the effort to complete the activity. Or, the assistance of 2 or more helpers is required for the patient to complete the activity. If activity was not attempted, code reason: 7-Patient Refused. 9-Not Applicable-not attempted and the patient did not perform the activity before the current illness, exacerbation or injury. 10-Not Attempted due to Environmental Limitations-(lack of equipment, weather restraints, etc.). 88-Not Attempted due to Medical Conditions or Safety Concerns. Oral Hygiene (QC): 5 Other Treatment Co-tx with PT due to need for two different skilled therapists for management of L UE and LE, as well as weight bearing and functional use R UE while standing. While PT was walking with pt, OT managed L UE and PROM/stretch. Also worked with reaching with R UE in different planes while pt standing and weight bearing on LEs. Also, while standing, placed L hand on parallel bars for weight bearing and weight shifting. No movement observed at shoulder or rest of L UE. Care transferred to PT. Education OT Patient Education: Modified ADL techniques, Progress toward Goal/Update tx plan, Purpose of tx/functional activities, Rehab process, Safety issues Teaching Recipient: Patient Teaching Methods: Demonstration, Discussion Response to Teaching: Verbalize Understanding, Return Demonstration, Reinforcement Needed OT Short Term Goals Short Term Goals Time Frame: Apr 11, 2020 Eatin Oral hygiene: 3 Toileting hygiene: 3 Shower/bathe self: 2 Upper body dressin Lower body dressin Putting on/taking off footwear: 2 OT Detention Goals Purchasing Expeditor Goals Time Frame: Apr 25, 2020 Eating (QC): 4 (met) Oral Hygiene (QC): 4 (continue) Toileting Hygiene (QC): 3 (continue) Shower/Bathe Self (QC): 3 (new goal- Min assist) Upper Body Dressing (QC): 4 (continue) Lower Body Dressing (QC): 4 (continue) On/Off Footwear (QC): 4 (continue) Additional Goals: 1-Demonstrate ADL Tasks, 2-Verbalize Understanding, 3- ImproveStrength/[place] 1=Demonstrate adherence to instructed precautions during ADL tasks. 2=Patient will verbalize/demonstrate understanding of assistive devices/modifications for ADL. 3=Patient will improve strength/tolerance for activity to enable patient to perform ADL's. OT Education/Plan Discharge Recommendations Plan/Recommendations: Continue POC Treatment Plan/Plan of Care Patient would benefit from OT for education, treatment and training to promote independence in ADL's, mobility, safety and/or upper extremity function for ADL's. Plan of Care: ADL Retraining, Functional Mobility, UE Funct Exercise/Act, UE Neuromus Re-Ed/Coord, Visual/Perceptual Retrain Treatment Duration: Apr 25, 2020 Frequency: At least 5 of 7 days/Wk (IRF) Estimated Hrs Per Day: 1.5 hours per day Agreement: Yes Rehab Potential: Fair Time/GCodes Start Time: 08:30 Stop Time: 09:30 Total Time Billed (hr/min): 60 Billed Treatment Time visit, 30 minutes ADL, 30 minutes neuromotor PEDRITO LORENZO OT Apr 26, 2020 10:43
--- NOTE | 2020-04-26 10:52 | Physical Therapy Daily Note ---
PT Daily Note-Current Subjective Patient in WC in room pre tx, agrees to PT, no complaints of pain, has already been working with OT, will be co-treating with OT for part of treatment due to poor patient mobility, strength, endurance, standing balance, left hemiplegia, the need to coordinate UE and LE during activity. Appearance Patient in bed post tx with nurse call, phone, tray, all needs met. Mental Status Patient Orientation: Person, Place, Situation Transfers SCALE: Activities may be completed with or without assistive devices. 5-Ygwxyadrvm-hirtlig completes the activity by him/herself with no assistance from a helper. 5-Set-up or Clean-up Assistance-helper sets up or cleans up; patient completes activity. [place] assists only prior to or following the activity. 4-Supervision or Touching Assistance-helper provides verbal cues and/or touching/steadying and/or contact guard assistance as patient completes activity. Assistance may be provided throughout the activity or intermittently. 3-Partial/Moderate Assistance-helper does LESS THAN HALF the effort. [place] lifts, holds or supports trunk or limbs, but provides less than half the effort. 2-Substantial/Maximal Assistance-helper does MORE THAN HALF the effort. [place] lifts or holds trunk or limbs and provides more than half the effort. 3-Hwrljtyyf-eyqoqi does ALL the effort. Patient does none of the effort to complete the activity. Or, the assistance of 2 or more helpers is required for the patient to complete the activity. If activity was not attempted, code reason: 7-Patient Refused. 9-Not Applicable-not attempted and the patient did not perform the activity before the current illness, exacerbation or injury. 10-Not Attempted due to Environmental Limitations-(lack of equipment, weather restraints, etc.). 88-Not Attempted due to Medical Conditions or Safety Concerns. Roll Left & Right (QC): 3 Sit to Lying (QC): 3 Sit to Stand (QC): 3 Chair/Bns-xo-Ojjfd Xfer(QC): 3 Patient propelled WC to therapy gym with min assist 150', went to parallel bars and ambulated x3 with max assist (needs assist advancing his left leg and with balance), stood x3 while working on standing balance and RUE activity, then stand pivot transfer to [facility] and performed that for 10 min level 5, stand pivot to WC, propel WC to room, stand pivot to bed and sit to supine (needs assist with left leg). Weight Bearing Full Weight Bearing Full Weight Bearing Treatments PT performed bed mobility and transfers, ambulation, functional strengthening, balance training, OT performed UE standing balance activity, UE positioning and safety during ambulation Assessment Current Status: Fair Progress slightly improved stand pivot transfer to the right side PT Short Term Goals Short Term Goals Time Frame: Apr 04, 2020 Roll Left & Right: 3 Sit to lyin Lying to sitting on side of be: 3 Sit to stand: 3 Chair/jbl-tk-agfiy transfer: 2 PT Jammer Hooker Goals Jammer Hooker Goals PT Jammer Hooker Goals Time Frame: Apr 18, 2020 Roll Left & Right (QC): 3 (Pablo) Sit to Lying (QC): 3 (Pablo) Lying-Sitting on Side/Bed(QC): 3 (Pablo) Sit to Stand (QC): 3 (Pablo) Chair/Psg-ym-Owckm Xfer(QC): 3 (Pablo) Toilet Transfer (QC): 3 (Pablo) Car Transfer (QC): 3 (mod A) Does the Patient Walk: No and Walking Goal NOT indicated Walk 10 feet (QC): 88 Walk 50ft with 2 Turns (QC): 88 Walk 150 ft (QC): 88 Walking 10ft on Uneven Surface: 88 1 Step (curb) (QC): 88 4 Steps (QC): 88 12 Steps (QC): 88 Picking up an Object (QC): 88 Does the Pt use WC or Scooter?: Yes Wheel 50 feet with 2 turns (QC: 3 (Pablo) Type: Manual Wheel 150 feet: 3 (Pablo) Type: Manual PT Plan Problem List Problem List: Activity Tolerance, Functional Strength, Safety, Balance, Gait, Transfer, Bed Mobility, ROM Treatment/Plan Treatment Plan: Continue Plan of Care Treatment Plan: Bed Mobility, Education, Functional Activity [place], Functional Strength, Group Therapy, Gait, Safety, Therapeutic Exercise, Transfers Treatment Duration: Apr 18, 2020 Frequency: At least 5 of 7 days/Wk (IRF) Estimated Hrs Per Day: 1.5 hours per day Patient and/or Family Agrees t: Yes Safety Risks/Education Patient Education: Gait Training, Transfer Techniques, Correct Positioning, W/C Management, Safety Issues Teaching Recipient: Patient Teaching Methods: Demonstration, Discussion Response to Teaching: Reinforcement Needed Time/GCodes Time In: 0900 Time Out: 1000 Total Billed Treatment Time: 60 Total Billed Treatment 1 visit EX 10' WCH 20' FA 30' MARK RYAN PT Apr 26, 2020 10:52
--- NOTE | 2020-04-26 13:10 | Speech Therapy Daily Note ---
Speech Daily Progress Note Subjective Date Seen by Provider: Apr 26, 2020 Time Seen by Provider: 00:30 Patient was resting in his bed. was at bedside who had just brought him a taco from [employer] that he was eating. Patient was happy to report they had bought a handicap van and power wheel chair. Objective Patient completed a series of questions related to the past 24 hours and his return home without cues at 100%. Assessment Assessment Current Status: Good Progress Treatment Plan Continue Plan of Care Speech Short Term Goals Short Term Goals Short Term Goals 1) Patient will complete memory tasks related to his daily needs at 90% or greater with minimal cues. 2) Patient will complete safety awareness tasks related to his daily needs at 90% or greater with minimal cues. 3) Patient will complete problem solving tasks related to his daily needs at 90% or greater with minimal cues. 4) Patient will tolerate least restrictive diet level without s/s of aspiration at 90% or greater. 5) Patient/caregiver will utilize compensatory strategies as trained at 90% or greater with minimal cues. Speech [facility] Goals Tape Recorder Mechanic Goals Patient will improve cognitive-communication necessary for safety and daily living tasks with minimal assist. Patient will maintain adequate nutrition/hydration via safe effective swallow function. Speech-Plan Patient/Family Goals Patient/Family Goals: Patient is scheduled for discharge on 05/01/2020 to his home Treatment Plan Speech Therapy Treatment Plan: Continue Plan of Care Treatment Duration: Apr 12, 2020 Frequency: 5 times per week Estimated Hrs Per Day: .5 hour per day Rehab Potential: Fair Barriers to Learning: Patient's recent CVA, however his cognitive deficits have mostly resolved. Pt/Family Agrees to Plan: Yes Safety Risks/Education Teaching Recipient: Patient, Significant Other Teaching Methods: Demonstration, Discussion Response to Teaching: Verbalize Understanding, Return Demonstration Education Topics Provided: Continued safety upon hi return home Time Speech Therapy Time In: 11:30 Speech Therapy Time Out: 12:00 Total Billed Time: 30 Billed Treatment Time 1LE[address] ST Apr 26, 2020 13:10
--- NOTE | 2020-04-26 13:50 | NUR ---
CM/SS PATIENT CARE CONFERENCE and DISCHARGE PLANNING Patient and spouse Carole reviewed Summary, signed, charted. The team set a target discharge date of May 01, and the relative psychosocial issues were again discussed. Per patient and spouse, their home environment is not conducive to his current care needs. They continue on a course to try to build a small handicap accessible home on the same property but this has not yet had ground breaking. Carole completed the drawings and has hired a person to build. The alternative due to timelines, Carole has had conversation with family/friends about doing minimal to the current house to accommodate patient which was replacing front porch floor, bravo door removal/repair. Bathroom can not be accessed by patient nor modified adequately. Carole talked about utilizing BSC for toileting and bath wipes. At conclusion of the meeting, patient stated he felt it more feasible for him to enter SNF [facility], where Carole works, for a short term stay while the home property is developed. [employer] contacted facility and referral was completed. [facility] staff will need to check benefits with [facility] insurance, await their update. [facility], Admin Dariel CasperChaparrita [address] [place] [id number] PH: [phone] FX: [phone] DME: Carole purchased an older wheelchair van and a power wheelchair for patient yesterday. Home DME: High back reclining wheelchair, hospital bed, sebastien (may not need if patient can transfer and home caregiver can handle), some sort of bathing assistive device depending on bathroom in new property (PVC roll in chair, tub shower bench with back?) Ramp, likely rental. Pursue if SNF placement is not feasible. Followup Wednesday.
--- NOTE | 2020-04-26 14:26 | NUR ---
"RD ASSESSMENT PMHx: HTN; developmental disorder; PT INTERACTION: Pt was awake and pleasant during nutrition assessment. Pt states he has been eating okay since last assessment. Note avg PO intake 50-75% x4d, per chart review. Pt states some issues with nausea and vomiting since last assessment. Note 5 episodes of emesis on 04/23, per chart review. Note last BM was 04/23, and pt currently on bowel regimen of colace BID; senna BID; and miralax BID, per chart review. ABNORMAL NUTRITION-RELATED LAB VALUES LOW: K 3.3 HIGH: BUN 19; glu 117 Est. kcal needs: 1625 kcal | 20 kcal/kg Est. Pro needs: 64 g Pro | 0.8 g Pro/kg PES STATEMENT: Inadequate oral intake (NI-2.1) related to loss of appetite | nausea | vomiting as evidenced by pt interview | chart review | avg PO intek 50-75% x4d INTERVENTION: Continue with current diet order of DYS2 Mechanically Altered diet. Pt may benefit from nutrition supplementation if PO intake declines. Will continue to follow and reassess as pt needs, intake, and status change. MONITOR/EVALUATE: PO Intake; Plan of Care; Hydration Status; Weight Status; Lab Values Jodi Hassan, MS, RD, LD"
[2020-04-26] MEDS ORDERED: SCOPOLAMINE PATCH REMOVAL TP SCH (15:00)
--- NOTE | 2020-04-26 15:11 | Therapy Group Daily Note ---
Therapy Daily Group Note Patient Education Topic Home Safety, Exercises, Other List Below (orientation to rehab) Exercises LE Seated Exercise, UE Exercise Session Ratio (pt:therapist): 3:1 Goal of Session: Education on ARU Expectations, Home Safety Strategies, UE/LE Strengthing Goal Met for this Session: Yes Pt Benefit of Group: Contributions to Others, F/U Use of Strategies @Home, Increased Functional Safety, Increased Functional Strength, Socialization Other/Notes Pt. participated in group PT OT session this date. Pt. self -propelled w/c to and from with Min A. Pt. was social, introducing self and shared briefly his hometown and what he might like to eat when he is out of the hospital with cues. Pt. demonstrated seated U&L extremity exercises to others in group reading and following directions from written illustrated exercises which were distributed to all participants just prior to group. Pt. participated well performing all exercises with a few verbal and tactile cues and PROM to LUE. Home safety was topic of education with patients sharing their knowledge and experiences. Trip ping hazards, adequate lighting sources, efficient ways of communication in case of emergency, as well as bathroom rails etc were covered. Explanation of ARU expectations and goals was outlined . Pt. donned mask for entire group session. After group pt. was assisted to room , transferred in to bed and call owens at hand with all needs met. Start Time: 13:00 Stop Time: 14:00 Total Billed Treatment Time: 60 Total Billed Treatment 1, GRP (60 minutes) CANDE LEWIS OTR Apr 26, 2020 15:11
[2020-04-26] MEDS: LIDOCAINE UROJET 2% GEL 10 ML PKG TOP PRN (15:41)
[2020-04-26] MEDS: DICLOFENAC 1% GEL 100 GM (VOLTAREN) TUBE TOP PRN (15:41)
[2020-04-26] MEDS: BISACODYL 10 MG SUPP (DULCOLAX) PR PRN (16:29)
[2020-04-26 16:30] VITALS: BP 122/58
[2020-04-26] MEDS: ENOXAPARIN 40 MG/0.4 ML (LOVENOX) SYR SC SCH (16:30)
--- NOTE | 2020-04-26 17:01 | Cardiology Progress Note ---
Cardiology SOAP Progress Note Subjective: Denies any cardiac complaints. Specifically denies shortness of breath, palpitations or chest pain. Objective: I&O/Vital Signs 04/26/20 04/26/20 06:00 09:00 Temp 36.0 Pulse 80 Resp 14 B/P (MAP) 124/63 (83) Pulse Ox 96 99 O2 Delivery Room Air Room Air 04/26/20 00:00 Intake Total 790 ml Output Total 700 ml Balance 90 ml Constitutional: AAO x 3, PERRL, well-developed, well-nourished Respiratory: chest is bilaterally symmetric, lungs clear to auscultation Cardiovascular: regular rate-rhythm, S1 and S2 Gastrointestional: soft, audible bowel sounds Extremities: no lower extremity edema bilateral Neurologic/Psychiatric: facial droop (left), other (left sided flaccid) Skin: No rash on exposed areas, No ulcerations on exposed areas Results/Procedures: Labs Microbiology 04/23/20 Urine Culture - Final, Complete Escherichia coli 04/10/20 MRSA Screen - Final, Complete MRSA not isolated A/P: Assessment/Dx: Hypertension, better controlled now. Cryptogenic stroke - ILR implanted on 03-26-2020 Non-occlusive carotid dz, minimal plaque seen on carotid u/s of March 25, 2020 Echocardiogram of March 26, 2020: 55-65% showed normal LV function with no wall motion abnormalities. Negative bubble study ruled out significant intracardiac shunting (+) COVID antibody on testing of March 25, 2020 Plan: BP control Monitor labs from time to time Thank you for your consultation. Please call me if you have any questions. Tiesha Arevalo MD, FACP, FACC, FSCAI, FHRS, CCDS Interventional Cardiology Cardiac Electrophysiology Vascular Medicine and Endovascular Interventions Focused Exam Lactate Level 04/24/20 06:20: Lactic Acid Level 1.50 Shaggy AREVALO MD Apr 26, 2020 17:01
[2020-04-26 18:00] VITALS: BP 126/80
--- NOTE | 2020-04-26 19:28 | NUR ---
bedside report received from NAZARIO LOMAX, assume care of pt
--- NOTE | 2020-04-26 20:30 | NUR ---
bladder scan showed 174ml
--- NOTE | 2020-04-26 21:59 | NUR ---
pt took ace, Sendejaot & miralax, repositioned in bed q 2hrs pt assisting as much as he can.
[2020-04-26] MEDS: BACLOFEN 10 MG (LIORESAL) TAB PO SCH (22:00)
[2020-04-26] MEDS: SERTRALINE 50 MG (ZOLOFT) TABLET PO SCH (22:01)
--- NOTE | 2020-04-27 00:35 | NUR ---
bladder scan showed 248 ml
[2020-04-27] MEDS: LIDOCAINE UROJET 2% GEL 10 ML PKG TOP PRN (05:27)
[2020-04-27] MEDS: BACLOFEN 10 MG (LIORESAL) TAB PO PRN ×3 (05:52→16:34)
[2020-04-27] MEDS: BETHANECHOL 25 MG (URECHOLINE) TAB PO SCH ×4 (05:52→20:51)
--- NOTE | 2020-04-27 06:54 | PM&R Progress Note ---
Subjective HPI/CC On Admission Date Seen by Provider: Apr 27, 2020 Time Seen by Provider: 12:30 Subjective/Events-last exam 04/27/20: Baclofen helpful for left arm pain Suppository every other day produces BM Bladder scanned and in/out cath maintained DC to [facility] 04/26/20: Actually stood up on his own without use of [id number]-hd-svhda secured a wheelchair van Dr. Drake placed him on Macrobid for UTI Rectal suppository will be given every other day if no BM 04/25/20: Bowels have not moved Still a little bit nauseated UTI treatment shows resistant to Bactrim so Dr. Drake will manage that and change antibiotics Overall doing pretty well otherwise 04/24/20: No more episodes of nausea, vomiting or constipation Changing Tux hemorrhoid pads to prn Overall feels like he is doing pretty well Disposition planned in the near future 04/23/20: UA and urine culture obtained by Dr. Drake Bactrim DS BID ordered Vomiting and nausea noted at times Dulcolax suppository will be given Lidocaine patch will be placed on is back 04/22/20: Catheter was required today, removing 450 CCs No pain is reported Overall participating in therapy No falls Using mehnaz lifts 04/21/20: Smearing BM so will place on commode to see if he can have a BM c/o urination with dysuria so will monitor that closely Multiple caths recently increased risk for UTI 04/20/2020: Patient slept well last night Urology saw him and thinks everything is going pretty well He only voids about once a day but he does have complete evacuation of the bladder No more nausea and vomiting like yesterday Bowels move yesterday but needs to maintain a good bowel regimen 04/19/20: Had another episode of nausea and vomiting Had two incontinent episodes because of the vomiting Bowels moved and it was large and he became Diaphoretic He's very motivated in therapy Will schedule laxatives 04/18/20: Nauseated with physical therapy again today Vomited yesterday Zofran was given today Bowels moved four days ago will start suppository in fleets No in/out catheter required 04/17/20: Patient required IN/OUT Catheter x2 Ongoing issue with Bladder retention Bowels not moving so will be given meds again Overall doing very well 04/16/20 Preston has been discontinued and voiding well Bladder scan and In and Out Caths if needed Left sided weakness remains Very motivated appears to be depressed currently today Baclofen in the morning really helps him so will continue that Dr Drake placed him on Bactrim for UTI e coli Labs noted Mehnaz lift required Preston cath replaced and will await Urology plan Slept well Checked meds and labs Conferred with RN Reviewed therapy notes Review of Systems General: Fatigue, Malaise Neurological: Weakness, Incoordination Objective Exam Vital Signs Vital Signs Date Time Temp Pulse Resp B/P (MAP) Pulse Ox O2 Delivery O2 Flow Rate FiO2 04/27/20 16:30 36.0 67 16 122/63 (82) 98 Room Air Capillary Refill : Less Than 3 Seconds General Appearance: No Apparent Distress, WD/WN, Chronically ill HEENT: PERRL/EOMI, Normal ENT Inspection, Pharynx Normal Neck: Full Range of Motion, Normal Inspection, Non Tender, Supple, Carotid Bruit Respiratory: Chest Non Tender, Lungs Clear, Normal Breath Sounds, No Accessory Muscle Use, No Respiratory Distress Cardiovascular: Regular Rate, Rhythm, No Edema, No Gallop, No JVD, No Murmur, Normal Peripheral Pulses Gastrointestinal: Normal Bowel Sounds, No Organomegaly, No Pulsatile Mass, Non Tender, Soft Back: Normal Inspection, No CVA Tenderness, No Vertebral Tenderness Extremity: Normal Capillary Refill, Normal Inspection, Normal Range of Motion (except left side), Non Tender, No Calf Tenderness, No Pedal Edema Neurologic/Psychiatric: Alert, Oriented x3, No Motor/Sensory Deficits, Normal Mood/Affect, Depressed Affect, Facial Droop (left), Motor Weakness (left sided paresis 0/5 flaccid) Skin: Normal Color, Warm/Dry Lymphatic: No Adenopathy Results/Procedures Lab Patient resulted labs reviewed. FIM Transfers Therapy Code Descriptions/Definitions Functional [place] Measure: 0=Not Assessed/NA 4=Minimal Assistance 1=Total Assistance 5=Supervision or Setup 2=Maximal Assistance 6=Modified [place] 3=Moderate Assistance 7=Complete IndependenceSCALE: Activities may be completed with or without assistive devices. 4-Xkdvryivna-mvapsfv completes the activity by him/herself with no assistance from a helper. 5-Set-up or Clean-up Assistance-helper sets up or cleans up; patient completes activity. [place] assists only prior to or following the activity. 4-Supervision or Touching Assistance-helper provides verbal cues and/or touching/steadying and/or contact guard assistance as patient completes activity. Assistance may be provided throughout the activity or intermittently. 3-Partial/Moderate Assistance-helper does LESS THAN HALF the effort. [place] lifts, holds or supports trunk or limbs, but provides less than half the effort. 2-Substantial/Maximal Assistance-helper does MORE THAN HALF the effort. [place] lifts or holds trunk or limbs and provides more than half the effort. 8-Qlomhipur-szkqrw does ALL the effort. Patient does none of the effort to complete the activity. Or, the assistance of 2 or more helpers is required for the patient to complete the activity. If activity was not attempted, code reason: 7-Patient Refused. 9-Not Applicable-not attempted and the patient did not perform the activity before the current illness, exacerbation or injury. 10-Not Attempted due to Environmental Limitations-(lack of equipment, weather restraints, etc.). 88-Not Attempted due to Medical Conditions or Safety Concerns. Roll Left to Right (QC): 3 Sit to Lying (QC): 3 Sit to Stand (QC): 3 Chair/Gvs-ig-Qyppv Xfer(QC): 3 Car Transfer (QC): 1 Gait Training Does the Patient Walk?: Yes Distance: 6'x4 Walk 10 feet (QC): 88 Walk 50 ft with 2 Turns(QC): 88 Walk 150 ft (QC): 88 Walking 10ft/uneven surface-QC: 88 Gait Persons Needed: 3 Gait Assistive Device: Parallel Bars Wheelchair Training Does the Pt Use a Wheelchair?: Yes Distance: 150' Wheel 50 ft with 2 turns (QC): 4 Wheel 150 ft (QC): 4 Type of Wheelchair: Manual Stair Training 1 Step (curb) (QC): 88 4 Steps (QC): 88 12 Steps (QC): 88 Balance Picking up an Object (QC): 88 ADL-Treatment Eating (QC): 5 Oral Hygiene (QC): 5 Bathing Location: L Arm, R Arm, L Upper Leg, R Upper Leg, Chest, Perineal Area Shower/Bathe Self (QC): 3 (Mod assist overall. Pt. requires cues to sequence and attempt different areas of body during shower.) Upper Body Dressing (QC): 2 (Attempted "flip" method overhead, as pt. has been using this method. Required max assist for this.) Lower Body Dressing (QC): 1 On/Off Footwear (QC): 1 (Pt. is able to raise right LE, but is unable to hold sock or shoe, or move left LE.) Toileting Hygiene (QC): 1 Toilet Transfer (QC): 2 Assessment/Plan Assessment and Plan Assess & Plan/Chief Complaint Assessment: Catastrophic CVA with left sided flaccidity Left facial droop COVID-19 antibody + Bipolar disorder Autism spectrum Urinary retention Preston cath in place consulted Dr Drake Plan: IRF protocol Dr Drake consultation Monitor bowel function Fall risk CBD oil Mehnaz lift Voiding much better on his own Maintain bladder meds Bowel regimen Decreasing pain medication 04/01/20: Voltaren gel for back pain Lortab for pain Mehnaz lift completely no sit-2-stand ability Flaccid left side continues 04/02/20: Patient went to father's today Continue Voltaren gel for back pain Sit to stand no longer an option needs Mehnaz lift 04/03/20: Bowels moved 2 days ago Laxatives ordered Discontinue the Preston catheter and Dr. Matias will monitor closely for retention Completed Augmentin Baclofen and pain medication taken on a real regular basis prone for dependency and addiction potential 04/04/20: Urology management of urinary retention since catheter removed Continue pain management but addiction potential noted Air mattress to prevent skin breakdown Laxatives due to constipation now 04/05/20: Bowels still not moving, supp and Fleets and SSE will be given Decrease pain meds to Q6hrs due to overuse and narcotic bowel noted complications Addiction potential noted Preston cath replaced and Flomax and Urecholine maintained now 04/06/20: Weaned Lortab Baclofen prn is working well BM regimen to continue Preston cath 04/07/20: Baclofen 10mg at night Maintain BM regimen Likely preston cath will be required again 04/08/20: Preston reinserted Labs stable BM regimen 04/09/20: Improvement in spontaneous urination Maintain Flomax and Urecholine Monitor closely 04/10/20: Disposition pending Continue aggressive therapy Cystoscopy Bladder meds 04/11/20: Had Cysto today by Urology Urinalysis is pending Pain pill on rare occasions 04/12/20: Maintain Baclofen Dr. Drake to manage Ecoli UTI Maintain Mehnaz lift In/Out catheter prn 04/13/20: UTI Tx Bactrim Monitor closely 04/14/20: UTI Tx Check labs in am 04/15/20: Tucks helping with Hemorrhoids Labs reviewed Baclofen working well Last pain pill was 4 days ago 04/17/20: Laxatives Bladder management Family education 04/18/20: Monitor nausea and vomiting Needs suppository or enema today Monitor closely 04/19/20: Monitor nausea and vomiting Laxatives will be ordered on a more scheduled basis Monitor closely 04/20/2020: Continue bowel regimen Monitor for urinary retention Aggressive therapy 04/21/20: Monitor dysuria Monitor labs BM regimen 04/22/20: Catheter as needed for retention Labs reviewed all normal Continue aggressive treatment 04/23/20: UTI diagnosed by urology Bactrim was started again Vomiting and nauseated Will give suppository for constipation today Lidocaine patch for his back per 's request 04/24/20: Continue aggressive bowel regimen Follow up on urine culture Scopolamine patch as needed 04/25/20: Bowel regimen to prevent constipation UTI is resistant to Bactrim will change that 04/26/20: Dramatic improvement in his ability to stand UTI treatment with Macrobid Will do a rectal suppository every other day if he hasn't had a bowel movement on his own 04/27/20: NH placement [place] Wed Monitor pain BM regimen (1) Acute right MCA stroke Status: Acute (2) 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
[2020-04-27 07:00] VITALS: BP 120/66
[2020-04-27] MEDS: meTOproloL SUCCINATE 50 MG (TOPROL XL) TAB PO SCH (08:38)
[2020-04-27] MEDS: TAMSULOSIN 0.4 MG (FLOMAX) CAP PO SCH ×2 (08:38→20:51)
[2020-04-27] MEDS: DOCUSATE SODIUM 100 MG (COLACE) CAP PO SCH ×2 (08:38→20:51)
[2020-04-27] MEDS: ASPIRIN 325 MG (5 GR) TABLET PO SCH (08:38)
[2020-04-27] MEDS: SENNA W/DOCUSATE (SENOKOT S) TABLET PO SCH ×2 (08:38→20:50)
[2020-04-27] MEDS: polyethylene glycoL POWDER 17 GM (MIRALAX) PACK PO SCH ×2 (08:39→20:51)
[2020-04-27] MEDS: NITROFURANTOIN 100 MG (MACROBID) CAPSULE PO SCH ×2 (08:45→17:45)
--- NOTE | 2020-04-27 09:26 | Progress Note - Urology ---
Progress Note-Urology Progress Notes/Assess & Plan Progress/Assessment & Plan CONTINUES SAME Final Diagnosis URINE RETENTION TIFFANIE WOMACK MD Apr 27, 2020 09:26
--- NOTE | 2020-04-27 11:08 | Physical Therapy Daily Note ---
PT Daily Note-Current Subjective Pt sitting up in bed upon arrival. Pt agrees to PT. Pain Numeric Pain Scale: 5-Moderate Pain Location: Left Location Body Site: Arm Pain Description: Ache Mental Status Patient Orientation: Person, Place, Situation Attachments: Other-See Comments (Brace for L UE) Transfers SCALE: Activities may be completed with or without assistive devices. 9-Fydllhozdt-medbyqu completes the activity by him/herself with no assistance from a helper. 5-Set-up or Clean-up Assistance-helper sets up or cleans up; patient completes activity. [place] assists only prior to or following the activity. 4-Supervision or Touching Assistance-helper provides verbal cues and/or touching/steadying and/or contact guard assistance as patient completes activity. Assistance may be provided throughout the activity or intermittently. 3-Partial/Moderate Assistance-helper does LESS THAN HALF the effort. [place] lifts, holds or supports trunk or limbs, but provides less than half the effort. 2-Substantial/Maximal Assistance-helper does MORE THAN HALF the effort. [place] lifts or holds trunk or limbs and provides more than half the effort. 5-Tfbbxzvtv-cqcesl does ALL the effort. Patient does none of the effort to complete the activity. Or, the assistance of 2 or more helpers is required for the patient to complete the activity. If activity was not attempted, code reason: 7-Patient Refused. 9-Not Applicable-not attempted and the patient did not perform the activity before the current illness, exacerbation or injury. 10-Not Attempted due to Environmental Limitations-(lack of equipment, weather restraints, etc.). 88-Not Attempted due to Medical Conditions or Safety Concerns. Weight Bearing Full Weight Bearing Full Weight Bearing Exercises Supine Ex: Ankle pumps, Quad Set, Glut sets, Heel Slides, Scooting, Straight leg raise, Hip abd/add Supine Reps: 20 Treatments Pt completes Supine Ex with PROM-AAROM for L LE. Pt rests at end of tx with all needs met, call light in hand. Assessment Current Status: Fair Progress Pt still needs assistance with moving L LE. PT Short Term Goals Short Term Goals Time Frame: Apr 04, 2020 Roll Left & Right: 3 Sit to lyin Lying to sitting on side of be: 3 Sit to stand: 3 Chair/pjc-ty-jqsyt transfer: 2 PT Senior Care Goals Senior Care Goals PT Senior Care Goals Time Frame: Apr 18, 2020 Roll Left & Right (QC): 3 (Pablo) Sit to Lying (QC): 3 (Pablo) Lying-Sitting on Side/Bed(QC): 3 (Pablo) Sit to Stand (QC): 3 (Pablo) Chair/Lxo-xl-Pvuzs Xfer(QC): 3 (Pablo) Toilet Transfer (QC): 3 (Pablo) Car Transfer (QC): 3 (mod A) Does the Patient Walk: No and Walking Goal NOT indicated Walk 10 feet (QC): 88 Walk 50ft with 2 Turns (QC): 88 Walk 150 ft (QC): 88 Walking 10ft on Uneven Surface: 88 1 Step (curb) (QC): 88 4 Steps (QC): 88 12 Steps (QC): 88 Picking up an Object (QC): 88 Does the Pt use WC or Scooter?: Yes Wheel 50 feet with 2 turns (QC: 3 (Pablo) Type: Manual Wheel 150 feet: 3 (Pablo) Type: Manual PT Plan Problem List Problem List: Activity Tolerance, Functional Strength, Safety, Transfer Treatment/Plan Treatment Plan: Continue Plan of Care Treatment Plan: Bed Mobility, Education, Functional Activity [place], Functional Strength, Group Therapy, Gait, Safety, Therapeutic Exercise, Transfers Treatment Duration: Apr 18, 2020 Frequency: At least 5 of 7 days/Wk (IRF) Estimated Hrs Per Day: 1.5 hours per day Patient and/or Family Agrees t: Yes Safety Risks/Education Patient Education: Transfer Techniques, Correct Positioning, Safety Issues Teaching Recipient: Patient Teaching Methods: Discussion Response to Teaching: Verbalize Understanding Time/GCodes Time In: 930 Time Out: 953 Total Billed Treatment Time: 23 Total Billed Treatment 1, EX x2 (23m) MONSE SANCHEZ SALES TEAM MANAGER Apr 27, 2020 11:08
[2020-04-27] MEDS: SCOPOLAMINE 1.5 MG (TRANSDERM-SCOP) PATCH TD SCH (13:09)
--- NOTE | 2020-04-27 14:09 | Cardiology Progress Note ---
Cardiology SOAP Progress Note Subjective: No cardiac complaints. Objective: I&O/Vital Signs 04/27/20 04/27/20 07:00 09:00 Temp 36.4 Pulse 74 Resp 18 B/P (MAP) 120/66 (84) Pulse Ox 96 O2 Delivery Room Air Room Air 04/27/20 00:00 Intake Total 750 ml Output Total 600 ml Balance 150 ml Constitutional: AAO x 3, PERRL, well-developed, well-nourished Respiratory: chest is bilaterally symmetric, lungs clear to auscultation Cardiovascular: regular rate-rhythm, S1 and S2 Gastrointestional: soft, audible bowel sounds Extremities: no lower extremity edema bilateral Neurologic/Psychiatric: facial droop (left), other (left sided flaccid) Skin: No rash on exposed areas, No ulcerations on exposed areas Results/Procedures: Labs Microbiology 04/23/20 Urine Culture - Final, Complete Escherichia coli 04/10/20 MRSA Screen - Final, Complete MRSA not isolated A/P: Assessment/Dx: Hypertension, better controlled now. Cryptogenic stroke - ILR implanted on 03-26-2020 Non-occlusive carotid dz, minimal plaque seen on carotid u/s of March 25, 2020 Echocardiogram of March 26, 2020: 55-65% showed normal LV function with no wall motion abnormalities. Negative bubble study ruled out significant intracardiac shunting (+) COVID antibody on testing of March 25, 2020 Plan: BP control Monitor labs from time to time Thank you for your consultation. Please call me if you have any questions. Tiesha Arevalo MD, FACP, FACC, FSCAI, FHRS, CCDS Interventional Cardiology Cardiac Electrophysiology Vascular Medicine and Endovascular Interventions Shaggy AREVALO MD Apr 27, 2020 14:09
[2020-04-27 16:30] VITALS: BP 122/63
--- NOTE | 2020-04-27 16:30 | NUR ---
HARDEEP SALAS'Pavithra 500 CC. ENJOYED VISIT FROM DAUGHTER TODAY. APPEARS TO HAVE INCREASED PAIN IN LEFT ARM.
[2020-04-27] MEDS: ENOXAPARIN 40 MG/0.4 ML (LOVENOX) SYR SC SCH (16:36)
--- NOTE | 2020-04-27 19:23 | NUR ---
bedside report received from MARY BETH LOMAX, assume care of pt
[2020-04-27] MEDS: SERTRALINE 50 MG (ZOLOFT) TABLET PO SCH (20:51)
[2020-04-27] MEDS: BACLOFEN 10 MG (LIORESAL) TAB PO SCH (20:51)
--- NOTE | 2020-04-27 20:51 | NUR ---
pt took all laxatives tonight
--- NOTE | 2020-04-27 21:30 | NUR ---
bladder scan showed 207
[2020-04-28] MEDS: LIDOCAINE UROJET 2% GEL 10 ML PKG TOP PRN ×2 (01:55→16:05)
--- NOTE | 2020-04-28 01:55 | NUR ---
bladder scan showed 401
--- NOTE | 2020-04-28 02:10 | NUR ---
straight cath & received 375ml sandi colored urine
[2020-04-28] MEDS: BETHANECHOL 25 MG (URECHOLINE) TAB PO SCH ×4 (05:55→20:37)
[2020-04-28] MEDS: BACLOFEN 10 MG (LIORESAL) TAB PO PRN (05:55)
[2020-04-28 06:03] VITALS: BP 128/60
--- NOTE | 2020-04-28 08:20 | NUR ---
BLADDER SCAN SHOWED 689 CC AT 0800. STRAIGHT CATH DONE AND 625 CC RETURN. STATES SLEPT WELL. LEFT ARM SPLINT ON. LEFT FINGERS KEEP CURLING INWARD AND NEEDS STRAIGHTENED OUT OFTEN.
[2020-04-28] MEDS: TAMSULOSIN 0.4 MG (FLOMAX) CAP PO SCH ×2 (09:53→20:37)
[2020-04-28] MEDS: DOCUSATE SODIUM 100 MG (COLACE) CAP PO SCH ×2 (09:53→20:37)
[2020-04-28] MEDS: SENNA W/DOCUSATE (SENOKOT S) TABLET PO SCH ×2 (09:53→20:37)
[2020-04-28] MEDS: ASPIRIN 325 MG (5 GR) TABLET PO SCH (09:53)
[2020-04-28] MEDS: NITROFURANTOIN 100 MG (MACROBID) CAPSULE PO SCH ×2 (09:53→17:31)
[2020-04-28] MEDS: meTOproloL SUCCINATE 50 MG (TOPROL XL) TAB PO SCH (09:54)
[2020-04-28] MEDS: polyethylene glycoL POWDER 17 GM (MIRALAX) PACK PO SCH ×2 (09:54→20:36)
--- NOTE | 2020-04-28 11:25 | PM&R Progress Note ---
Subjective HPI/CC On Admission Date Seen by Provider: Apr 28, 2020 Time Seen by Provider: 12:15 Subjective/Events-last exam 04/28/20: Patient reports feeling pretty good [place] Wed for skilled Cath in/out will be arranged with Urology prior to DC 04/27/20: Baclofen helpful for left arm pain Suppository every other day produces BM Bladder scanned and in/out cath maintained DC to DC [place] 04/26/20: Actually stood up on his own without use of paf-oe-exwdy secured a wheelchair van Dr. Drake placed him on Macrobid for UTI Rectal suppository will be given every other day if no BM 04/25/20: Bowels have not moved Still a little bit nauseated UTI treatment shows resistant to Bactrim so Dr. Drake will manage that and change antibiotics Overall doing pretty well otherwise 04/24/20: No more episodes of nausea, vomiting or constipation Changing Tux hemorrhoid pads to prn Overall feels like he is doing pretty well Disposition planned in the near future 04/23/20: UA and urine culture obtained by Dr. Drake Bactrim DS BID ordered Vomiting and nausea noted at times Dulcolax suppository will be given Lidocaine patch will be placed on is back 04/22/20: Catheter was required today, removing 450 CCs No pain is reported Overall participating in therapy No falls Using mehnaz lifts 04/21/20: Smearing BM so will place on commode to see if he can have a BM c/o urination with dysuria so will monitor that closely Multiple caths recently increased risk for UTI 04/20/2020: Patient slept well last night Urology saw him and thinks everything is going pretty well He only voids about once a day but he does have complete evacuation of the bladder No more nausea and vomiting like yesterday Bowels move yesterday but needs to maintain a good bowel regimen 04/19/20: Had another episode of nausea and vomiting Had two incontinent episodes because of the vomiting Bowels moved and it was large and he became Diaphoretic He's very motivated in therapy Will schedule laxatives 04/18/20: Nauseated with physical therapy again today Vomited yesterday Zofran was given today Bowels moved four days ago will start suppository in fleets No in/out catheter required 04/17/20: Patient required IN/OUT Catheter x2 Ongoing issue with Bladder retention Bowels not moving so will be given meds again Overall doing very well 04/16/20 Preston has been discontinued and voiding well Bladder scan and In and Out Caths if needed Left sided weakness remains Very motivated appears to be depressed currently today Baclofen in the morning really helps him so will continue that Dr Drake placed him on Bactrim for UTI e coli Labs noted Mehnaz lift required Preston cath replaced and will await Urology plan Slept well Checked meds and labs Conferred with RN Reviewed therapy notes Review of Systems General: Fatigue, Malaise Genitourinary: Retention Objective Exam Vital Signs Vital Signs Date Time Temp Pulse Resp B/P (MAP) Pulse Ox O2 Delivery O2 Flow Rate FiO2 04/28/20 17:59 36.2 76 18 111/58 (75) 97 Room Air Capillary Refill : Less Than 3 Seconds General Appearance: No Apparent Distress, WD/WN, Chronically ill HEENT: PERRL/EOMI, Normal ENT Inspection, Pharynx Normal Neck: Full Range of Motion, Normal Inspection, Non Tender, Supple, Carotid Bruit Respiratory: Chest Non Tender, Lungs Clear, Normal Breath Sounds, No Accessory Muscle Use, No Respiratory Distress Cardiovascular: Regular Rate, Rhythm, No Edema, No Gallop, No JVD, No Murmur, Normal Peripheral Pulses Gastrointestinal: Normal Bowel Sounds, No Organomegaly, No Pulsatile Mass, Non Tender, Soft Back: Normal Inspection, No CVA Tenderness, No Vertebral Tenderness Extremity: Normal Capillary Refill, Normal Inspection, Normal Range of Motion (except left side), Non Tender, No Calf Tenderness, No Pedal Edema Neurologic/Psychiatric: Alert, Oriented x3, No Motor/Sensory Deficits, Normal Mood/Affect, Depressed Affect, Facial Droop (left), Motor Weakness (left sided paresis 0/5 flaccid) Skin: Normal Color, Warm/Dry Lymphatic: No Adenopathy Results/Procedures Lab Patient resulted labs reviewed. FIM Transfers Therapy Code Descriptions/Definitions Functional [place] Measure: 0=Not Assessed/NA 4=Minimal Assistance 1=Total Assistance 5=Supervision or Setup 2=Maximal Assistance 6=Modified [place] 3=Moderate Assistance 7=Complete IndependenceSCALE: Activities may be completed with or without assistive devices. 4-Wjwwnewzdx-rpagevf completes the activity by him/herself with no assistance from a helper. 5-Set-up or Clean-up Assistance-helper sets up or cleans up; patient completes activity. [place] assists only prior to or following the activity. 4-Supervision or Touching Assistance-helper provides verbal cues and/or touching/steadying and/or contact guard assistance as patient completes activity. Assistance may be provided throughout the activity or intermittently. 3-Partial/Moderate Assistance-helper does LESS THAN HALF the effort. [place] lifts, holds or supports trunk or limbs, but provides less than half the effort. 2-Substantial/Maximal Assistance-helper does MORE THAN HALF the effort. [place] lifts or holds trunk or limbs and provides more than half the effort. 7-Zxgftoqjh-hzqugv does ALL the effort. Patient does none of the effort to complete the activity. Or, the assistance of 2 or more helpers is required for the patient to complete the activity. If activity was not attempted, code reason: 7-Patient Refused. 9-Not Applicable-not attempted and the patient did not perform the activity before the current illness, exacerbation or injury. 10-Not Attempted due to Environmental Limitations-(lack of equipment, weather restraints, etc.). 88-Not Attempted due to Medical Conditions or Safety Concerns. Roll Left to Right (QC): 3 Sit to Lying (QC): 3 Sit to Stand (QC): 3 Chair/Oow-ou-[place]hsla Xfer(QC): 3 Car Transfer (QC): 1 Gait Training Does the Patient Walk?: Yes Distance: 6'x4 Walk 10 feet (QC): 88 Walk 50 ft with 2 Turns(QC): 88 Walk 150 ft (QC): 88 Walking 10ft/uneven surface-QC: 88 Gait Persons Needed: 3 Gait Assistive Device: Parallel Bars Wheelchair Training Does the Pt Use a Wheelchair?: Yes Distance: 150' Wheel 50 ft with 2 turns (QC): 4 Wheel 150 ft (QC): 4 Type of Wheelchair: Manual Stair Training 1 Step (curb) (QC): 88 4 Steps (QC): 88 12 Steps (QC): 88 Balance Picking up an Object (QC): 88 ADL-Treatment Eating (QC): 5 Oral Hygiene (QC): 5 Bathing Location: L Arm, R Arm, L Upper Leg, R Upper Leg, Chest, Perineal Area Shower/Bathe Self (QC): 3 (Mod assist overall. Pt. requires cues to sequence and attempt different areas of body during shower.) Upper Body Dressing (QC): 2 (Attempted "flip" method overhead, as pt. has been using this method. Required max assist for this.) Lower Body Dressing (QC): 1 On/Off Footwear (QC): 1 (Pt. is able to raise right LE, but is unable to hold sock or shoe, or move left LE.) Toileting Hygiene (QC): 1 Toilet Transfer (QC): 2 Assessment/Plan Assessment and Plan Assess & Plan/Chief Complaint Assessment: Catastrophic CVA with left sided flaccidity Left facial droop COVID-19 antibody + Bipolar disorder Autism spectrum Urinary retention Preston cath in place consulted Dr Drake Plan: IRF protocol Dr Drake consultation Monitor bowel function Fall risk CBD oil Mehnaz lift Voiding much better on his own Maintain bladder meds Bowel regimen Decreasing pain medication 04/01/20: Voltaren gel for back pain Lortab for pain Mehnaz lift completely no sit-2-stand ability Flaccid left side continues 04/02/20: Patient went to father's today Continue Voltaren gel for back pain Sit to stand no longer an option needs Mehnaz lift 04/03/20: Bowels moved 2 days ago Laxatives ordered Discontinue the Preston catheter and Dr. Matias will monitor closely for retention Completed Augmentin Baclofen and pain medication taken on a real regular basis prone for dependency and addiction potential 04/04/20: Urology management of urinary retention since catheter removed Continue pain management but addiction potential noted Air mattress to prevent skin breakdown Laxatives due to constipation now 04/05/20: Bowels still not moving, supp and Fleets and SSE will be given Decrease pain meds to Q6hrs due to overuse and narcotic bowel noted complications Addiction potential noted Preston cath replaced and Flomax and Urecholine maintained now 04/06/20: Weaned Lortab Baclofen prn is working well BM regimen to continue Preston cath 04/07/20: Baclofen 10mg at night Maintain BM regimen Likely preston cath will be required again 04/08/20: Preston reinserted Labs stable BM regimen 04/09/20: Improvement in spontaneous urination Maintain Flomax and Urecholine Monitor closely 04/10/20: Disposition pending Continue aggressive therapy Cystoscopy Bladder meds 04/11/20: Had Cysto today by Urology Urinalysis is pending Pain pill on rare occasions 04/12/20: Maintain Baclofen Dr. Drake to manage Ecoli UTI Maintain Mehnaz lift In/Out catheter prn 04/13/20: UTI Tx Bactrim Monitor closely 04/14/20: UTI Tx Check labs in am 04/15/20: Tucks helping with Hemorrhoids Labs reviewed Baclofen working well Last pain pill was 4 days ago 04/17/20: Laxatives Bladder management Family education 04/18/20: Monitor nausea and vomiting Needs suppository or enema today Monitor closely 04/19/20: Monitor nausea and vomiting Laxatives will be ordered on a more scheduled basis Monitor closely 04/20/2020: Continue bowel regimen Monitor for urinary retention Aggressive therapy 04/21/20: Monitor dysuria Monitor labs BM regimen 04/22/20: Catheter as needed for retention Labs reviewed all normal Continue aggressive treatment 04/23/20: UTI diagnosed by urology Bactrim was started again Vomiting and nauseated Will give suppository for constipation today Lidocaine patch for his back per 's request 04/24/20: Continue aggressive bowel regimen Follow up on urine culture Scopolamine patch as needed 04/25/20: Bowel regimen to prevent constipation UTI is resistant to Bactrim will change that 04/26/20: Dramatic improvement in his ability to stand UTI treatment with Macrobid Will do a rectal suppository every other day if he hasn't had a bowel movement on his own 04/27/20: NH placement [place] Wed Monitor pain BM regimen 04/28/20: NH Wednesday Cath in/out parn Monitor BP (1) Acute right MCA stroke Status: Acute (2) Facial droop due to cerebrovascular accident (CVA) (3) Bipolar disorder (4) Autism spectrum (5) Urinary retention (6) Preston catheter in place (7) Coronavirus infection, unspecified Status: Chronic (8) Left-sided neglect Status: Acute (9) Dysphasia due to recent cerebrovascular accident (CVA) Status: Acute AIDE GATICA DO Apr 28, 2020 11:25
--- NOTE | 2020-04-28 14:52 | Cardiology Progress Note ---
Cardiology SOAP Progress Note Subjective: No cardiac complaints. Objective: I&O/Vital Signs 04/28/20 04/28/20 06:03 09:00 Temp 36.6 Pulse 72 Resp 19 B/P (MAP) 128/60 (82) Pulse Ox 97 O2 Delivery Room Air Room Air 04/28/20 00:00 Intake Total 900 ml Output Total 500 ml Balance 400 ml Constitutional: AAO x 3, PERRL, well-developed, well-nourished Respiratory: chest is bilaterally symmetric, lungs clear to auscultation Cardiovascular: regular rate-rhythm, S1 and S2 Gastrointestional: soft, audible bowel sounds Extremities: no lower extremity edema bilateral Neurologic/Psychiatric: facial droop (left), other (left sided flaccid) Skin: No rash on exposed areas, No ulcerations on exposed areas Results/Procedures: Labs Microbiology 04/23/20 Urine Culture - Final, Complete Escherichia coli 04/10/20 MRSA Screen - Final, Complete MRSA not isolated A/P: Assessment/Dx: Hypertension, better controlled now. Cryptogenic stroke - ILR implanted on 03-26-2020 Non-occlusive carotid dz, minimal plaque seen on carotid u/s of March 25, 2020 Echocardiogram of March 26, 2020: 55-65% showed normal LV function with no wall motion abnormalities. Negative bubble study ruled out significant intracardiac shunting (+) COVID antibody on testing of March 25, 2020 Plan: BP control Monitor labs from time to time Thank you for your consultation. Please call me if you have any questions. Tiesha Arevalo MD, FACP, FACC, FSCAI, FHRS, CCDS Interventional Cardiology Cardiac Electrophysiology Vascular Medicine and Endovascular Interventions Shaggy AREVALO MD Apr 28, 2020 14:52
--- NOTE | 2020-04-28 16:00 | NUR ---
REQUESTED FOR PATIENT NOT TO BE AWAKEN FOR BLADDER SCAN. NOW AWAKE AND BLADDER SCAN SHOWED 399 CC. STRAIGHT CATH'D WITH LIDOCAINE AND 300 CC RETURN. HAS BEEN MEDICATED WITH DULCOLAX SUPPOSITORY.
[2020-04-28] MEDS: BISACODYL 10 MG SUPP (DULCOLAX) PR SCH (16:02)
[2020-04-28] MEDS: ENOXAPARIN 40 MG/0.4 ML (LOVENOX) SYR SC SCH (16:24)
[2020-04-28 17:59] VITALS: BP 111/58
--- NOTE | 2020-04-28 19:07 | NUR ---
bedside report received from MARY BETH LOMAX, assume care of pt
--- NOTE | 2020-04-28 20:30 | NUR ---
bladder scan showed 160ml, pt does not feel uncomfortable at this time, pt took all meds without difficulty one at a time
[2020-04-28] MEDS: SERTRALINE 50 MG (ZOLOFT) TABLET PO SCH (20:37)
[2020-04-28] MEDS: BACLOFEN 10 MG (LIORESAL) TAB PO SCH (20:37)
--- NOTE | 2020-04-29 01:10 | NUR ---
bladder scan showed 247 ml
--- NOTE | 2020-04-29 04:50 | NUR ---
bladder scan 296 ml
[2020-04-29 05:04] VITALS: BP 123/76
[2020-04-29 05:37] LABS: BASOPHILS % (AUTO) 0 % (0-10); EOSINOPHILS # (AUTO) 0.1 10^3/uL (0.0-0.3); EOSINOPHILS % (AUTO) 2 % (0-10); HEMATOCRIT 36 % (40-54); HEMOGLOBIN 11.5 G/DL (13.3-17.7); LYMPHOCYTES # (AUTO) 2.2 X 10^3 (1.0-4.0); LYMPHOCYTES % (AUTO) 38 % (12-44); MEAN CORPUSCULAR HEMOGLOBIN 29 PG (25-34); MEAN CORPUSCULAR HGB CONC 32 G/DL (32-36); MEAN CORPUSCULAR VOLUME 90 FL (80-99); MEAN PLATELET VOLUME 11.6 FL (7.4-10.4); MONOCYTES # (AUTO) 0.3 X 10^3 (0.0-1.0); MONOCYTES % (AUTO) 4 % (0-12); NEUTROPHILS # (AUTO) 3.2 X 10^3 (1.8-7.8); NEUTROPHILS % (AUTO) 56 % (42-75); PLATELET COUNT 224 10^3/uL (130-400); RED CELL DISTRIBUTION WIDTH 13.2 % (10.0-14.5); WHITE BLOOD COUNT 5.7 10^3/uL (4.3-11.0)
[2020-04-29 06:04] LABS: ALANINE AMINOTRANSFERASE 18 U/L (0-55); ALBUMIN 3.6 GM/DL (3.2-4.5); ALKALINE PHOSPHATASE 60 U/L (40-136); BILIRUBIN,TOTAL 0.4 MG/DL (0.1-1.0); BUN/CREATININE RATIO 26; CALCIUM 9.2 MG/DL (8.5-10.1); CARBON DIOXIDE 27 MMOL/L (21-32); CHLORIDE 108 MMOL/L (98-107); GFR ESTIMATED > 60; GLUCOSE 100 MG/DL (70-105); SODIUM 142 MMOL/L (135-145); TOTAL PROTEIN 6.2 GM/DL (6.4-8.2)
[2020-04-29] MEDS: BACLOFEN 10 MG (LIORESAL) TAB PO PRN (06:14)
[2020-04-29] MEDS: BETHANECHOL 25 MG (URECHOLINE) TAB PO SCH ×4 (06:14→21:04)
[2020-04-29] MEDS: LIDOCAINE UROJET 2% GEL 10 ML PKG TOP PRN ×2 (06:27→16:37)
[2020-04-29] MEDS: ASPIRIN 325 MG (5 GR) TABLET PO SCH (08:50)
[2020-04-29] MEDS: TAMSULOSIN 0.4 MG (FLOMAX) CAP PO SCH ×2 (08:50→21:04)
[2020-04-29] MEDS: DOCUSATE SODIUM 100 MG (COLACE) CAP PO SCH ×2 (08:51→21:04)
[2020-04-29] MEDS: meTOproloL SUCCINATE 50 MG (TOPROL XL) TAB PO SCH (08:51)
[2020-04-29] MEDS: SENNA W/DOCUSATE (SENOKOT S) TABLET PO SCH ×2 (08:51→21:04)
[2020-04-29] MEDS: NITROFURANTOIN 100 MG (MACROBID) CAPSULE PO SCH ×2 (08:51→16:30)
[2020-04-29] MEDS: polyethylene glycoL POWDER 17 GM (MIRALAX) PACK PO SCH ×2 (08:57→21:03)
--- NOTE | 2020-04-29 08:58 | Occupational Ther Daily Note ---
OT Current Status-Daily Note Subjective Pt alert, lying in bed. Pt agrees to therapy. Pt c/o pain throughout neck and back, medicated ointment applied. Mental Status/Objective Patient Orientation: Person, Place, Time, Situation ADL-Treatment Pt completed oral care and grooming sitting at sink, mod I. Therapy Code Descriptions/Definitions Functional [place] Measure: 0=Not Assessed/NA 4=Minimal Assistance 1=Total Assistance 5=Supervision or Setup 2=Maximal Assistance 6=Modified [place] 3=Moderate Assistance 7=Complete IndependenceSCALE: Activities may be completed with or without assistive devices. 8-Wdnnvfxmjw-vcbshjp completes the activity by him/herself with no assistance from a helper. 5-Set-up or Clean-up Assistance-helper sets up or cleans up; patient completes activity. [place] assists only prior to or following the activity. 4-Supervision or Touching Assistance-helper provides verbal cues and/or touching/steadying and/or contact guard assistance as patient completes activity. Assistance may be provided throughout the activity or intermittently. 3-Partial/Moderate Assistance-helper does LESS THAN HALF the effort. [place] lifts, holds or supports trunk or limbs, but provides less than half the effort. 2-Substantial/Maximal Assistance-helper does MORE THAN HALF the effort. [place] lifts or holds trunk or limbs and provides more than half the effort. 8-Vzjtaxmvr-puhoyb does ALL the effort. Patient does none of the effort to com plete the activity. Or, the assistance of 2 or more helpers is required for the patient to complete the activity. If activity was not attempted, code reason: 7-Patient Refused. 9-Not Applicable-not attempted and the patient did not perform the activity before the current illness, exacerbation or injury. 10-Not Attempted due to Environmental Limitations-(lack of equipment, weather restraints, etc.). 88-Not Attempted due to Medical Conditions or Safety Concerns. Oral Hygiene (QC): 6 Other Treatment OT/PT co-treat ([id number]), skills of 2 clinicians are required to complete skilled instruction and physical management due to neuromuscular retraining for mobility, transfers and ADLs. PT worked mobility, transfers and B LE movement. OT working on ADLs, mobility and B UE movement. No intentional movement noted in L UE, tone noted. Min A with verbal cues to sequence task, pt able to go from supine to EOB. Pt transferred from EOB to w/c with min A x1 with assist of 2nd person for safety due to pt's impulsiveness. Pt. wheeled from room to rehab gym with physical and verbal cues to maneuver around corners and to pick up operator items placed to work on L side neglect and environmental awareness. Pt. pulled to stand using outside parallel bars to perform sit to stand x3 with assist x2 due to decreased balance and impulsiveness. Pt needed max assist to support affected leg but CGA to support his trunk when standing up from w/c. Pt propelled w/c back to room and requested to lay in bed. Pt in supine while neuromuscular massage completed to L forearm and hand. After session, pt positioned comfortably in bed with call light/phone in reach. All needs met in room. OT Short Term Goals Short Term Goals Time Frame: Apr 11, 2020 Eatin Oral hygiene: 3 Toileting hygiene: 3 Shower/bathe self: 2 Upper body dressin Lower body dressin Putting on/taking off footwear: 2 OT Snf Goals Snf Goals Time Frame: Apr 25, 2020 Eating (QC): 4 (met) Oral Hygiene (QC): 4 (continue) Toileting Hygiene (QC): 3 (continue) Shower/Bathe Self (QC): 3 (new goal- Min assist) Upper Body Dressing (QC): 4 (continue) Lower Body Dressing (QC): 4 (continue) On/Off Footwear (QC): 4 (continue) Additional Goals: 1-Demonstrate ADL Tasks, 2-Verbalize Understanding, 3- ImproveStrength/[place] 1=Demonstrate adherence to instructed precautions during ADL tasks. 2=Patient will verbalize/demonstrate understanding of assistive devices/modifications for ADL. 3=Patient will improve strength/tolerance for activity to enable patient to perform ADL's. OT Education/Plan Problem List/Assessment Assessment: Decreased Activ Tolerance, Decreased Safety Aware, Decreased UE Strength, Dependent Transfers, Impaired Bed Mobility, Impaired Cognition, Impaired Coordination, Impaired Funct Balance, Impaired I ADL's, Impaired Self- Care Skills, Restricted Funct UE ROM, Visual-Perceptual Deficit Discharge Recommendations Plan/Recommendations: Continue POC Treatment Plan/Plan of Care Patient would benefit from OT for education, treatment and training to promote independence in ADL's, mobility, safety and/or upper extremity function for ADL's. Plan of Care: ADL Retraining, Functional Mobility, UE Funct Exercise/Act, UE Neuromus Re-Ed/Coord, Visual/Perceptual Retrain Treatment Duration: Apr 25, 2020 Frequency: At least 5 of 7 days/Wk (IRF) Estimated Hrs Per Day: 1.5 hours per day Agreement: Yes Rehab Potential: Fair Time/GCodes Start Time: 07:30 Stop Time: 09:00 Total Time Billed (hr/min): 90 Billed Treatment Time 1 visit-ADL 2 (30 min) NM 4 (60 min) co-treat with PT [id number] (45 min), individual [id number] & [id number] (45 min) JOSIAH ESCALANTE Apr 29, 2020 08:58
--- NOTE | 2020-04-29 09:57 | Physical Therapy Daily Note ---
PT Daily Note-Current Subjective Patient in WC pre tx, agrees to PT, has unrated low back pain. Will be co- treating with OT due to poor patient mobility, strength, endurance, sitting and standing balance, the need to coordinate UE and LE during activity. Appearance Patient in therapy gym to continue with OT. Mental Status Patient Orientation: Person, Place, Situation Transfers SCALE: Activities may be completed with or without assistive devices. 7-Xvskarsvwc-xpggbyf completes the activity by him/herself with no assistance from a helper. 5-Set-up or Clean-up Assistance-helper sets up or cleans up; patient completes activity. [place] assists only prior to or following the activity. 4-Supervision or Touching Assistance-helper provides verbal cues and/or touchi ng/steadying and/or contact guard assistance as patient completes activity. Assistance may be provided throughout the activity or intermittently. 3-Partial/Moderate Assistance-helper does LESS THAN HALF the effort. [place] lifts, holds or supports trunk or limbs, but provides less than half the effort. 2-Substantial/Maximal Assistance-helper does MORE THAN HALF the effort. [place] lifts or holds trunk or limbs and provides more than half the effort. 5-Lxgfwbeim-tjwxzx does ALL the effort. Patient does none of the effort to complete the activity. Or, the assistance of 2 or more helpers is required for the patient to complete the activity. If activity was not attempted, code reason: 7-Patient Refused. 9-Not Applicable-not attempted and the patient did not perform the activity before the current illness, exacerbation or injury. 10-Not Attempted due to Environmental Limitations-(lack of equipment, weather restraints, etc.). 88-Not Attempted due to Medical Conditions or Safety Concerns. Sit to Stand (QC): 2 Weight Bearing Full Weight Bearing Full Weight Bearing Wheelchair Training Does the Pt Use a Wheelchair?: Yes Wheel 50 ft with 2 turns (QC): 3 Wheel 150 ft (QC): 3 Type of Wheelchair: Manual min assist, patient practiced propelling WC and turning to find objects that OT are leaving for him to strip picker with forestry supervisor Neuromuscular Standing inside and outside of parallel bars reaching for cones and working on standing balance with less assist of left leg. Patient has much difficulty maintaining balance using only his right leg, cues for positioning. Assessment Current Status: Poor Progress stiffness in left hip PT Short Term Goals Short Term Goals Time Frame: Apr 04, 2020 Roll Left & Right: 3 Sit to lyin Lying to sitting on side of be: 3 Sit to stand: 3 Chair/eym-xl-ivgjo transfer: 2 PT Fpc Goals Fpc Goals PT Fpc Goals Time Frame: Apr 18, 2020 Roll Left & Right (QC): 3 ([place]ablo) Sit to Lying (QC): 3 (Pablo) Lying-Sitting on Side/Bed(QC): 3 (Pablo) Sit to Stand (QC): 3 ([place]) Chair/Kqh-ii-Vbitu Xfer(QC): 3 ([place]) Toilet Transfer (QC): 3 ([place]) Car Transfer (QC): 3 (mod A) Does the Patient Walk: No and Walking Goal NOT indicated Walk 10 feet (QC): 88 Walk 50ft with 2 Turns (QC): 88 Walk 150 ft (QC): 88 Walking 10ft on Uneven Surface: 88 1 Step (curb) (QC): 88 4 Steps (QC): 88 12 Steps (QC): 88 Picking up an Object (QC): 88 Does the Pt use WC or Scooter?: Yes Wheel 50 feet with 2 turns (QC: 3 ([place]) Type: Manual Wheel 150 feet: 3 ([place]) Type: Manual PT Plan Problem List Problem List: Activity Tolerance, Functional Strength, Safety, Balance, Gait, Transfer, Bed Mobility, ROM Treatment/Plan Treatment Plan: Continue Plan of Care Treatment Plan: Bed Mobility, Education, Functional Activity [place], Functional Strength, Group Therapy, Gait, Safety, Therapeutic Exercise, Transfers Treatment Duration: Apr 18, 2020 Frequency: At least 5 of 7 days/Wk (IRF) Estimated Hrs Per Day: 1.5 hours per day Patient and/or Family Agrees t: Yes Safety Risks/Education Patient Education: Transfer Techniques, Correct Positioning, W/C Management, Safety Issues Teaching Recipient: Patient Teaching Methods: Demonstration, Discussion Response to Teaching: Reinforcement Needed Time/GCodes Time In: 0800 Time Out: 0845 Total Billed Treatment Time: 45 Total Billed Treatment 1 visit [facility] 15' NM 30' co-treated with OT for 45' PT worked on WC mobility, standing balance, OT worked on UE activity, reaching, UE positioning and safety MARK RYAN PT Apr 29, 2020 09:57
--- NOTE | 2020-04-29 11:22 | Progress Note ---
CHANTAL ROSE MED STUDENT 04/29/20 1122: Progress Note 50 yo M presents to rehabilitation unit after R middle cerebral artery stroke. Therapy progression pt stated that therapy is tough, but that it is good. pt stated that he is starting to do better with his balance Goals pt stated that he wants to be at prior level of function. pt stated that he does not want to have to use the walker to get around. Prior level of function pt completely independent pt stated he ran 5 miles a day pt lives with no assistance needed with activities of daily living KIARA HYMAN DO 04/29/202037: Supervisory-Addendum Brief Verification & Attestation Participated in pt care: history, MDM, physical Personally performed: exam, history, MDM, supervision of care Care discussed with: Medical Student Procedures: n/a Results interpretation: Verified all documentation Verification and Attestation of Medical Student E/M Service A medical student performed and documented this service in my presence. I reviewed and verified all information documented by the medical student and made modifications to such information, when appropriate. I personally performed the physical exam and medical decision making. Kiara Hyman, Apr 29, 2020,20:38 CHANTAL ROSE MED STUDENT Apr 29, 2020 11:22 KIARA HYMAN DO Apr 29, 2020 20:38
--- NOTE | 2020-04-29 11:36 | Speech Therapy Daily Note ---
Speech Daily Progress Note Subjective Date Seen by Provider: Apr 29, 2020 Time Seen by Provider: 00:30 Patient was alert, laying in bed and watching television. His was present also. Objective Patient completed a series of questions related to his daily needs upon his return home with 90% given no cues. Assessment Assessment Current Status: Good Progress Treatment Plan Continue Plan of Care Speech Short Term Goals Short Term Goals Short Term Goals 1) Patient will complete memory tasks related to his daily needs at 90% or greater with minimal cues. 2) Patient will complete safety awareness tasks related to his daily needs at 90% or greater with minimal cues. 3) Patient will complete problem solving tasks related to his daily needs at 90% or greater with minimal cues. 4) Patient will tolerate least restrictive diet level without s/s of aspiration at 90% or greater. 5) Patient/caregiver will utilize compensatory strategies as trained at 90% or greater with minimal cues. Speech Hose Cementer Goals Hose Cementer Goals Patient will improve cognitive-communication necessary for safety and daily living tasks with minimal assist. Patient will maintain adequate nutrition/hydration via safe effective swallow function. Speech-Plan Patient/Family Goals Patient/Family Goals: Patient will be discharging to his home with family support. Treatment Plan Speech Therapy Treatment Plan: Continue Plan of Care Treatment Duration: Apr 12, 2020 Frequency: 5 times per week Estimated Hrs Per Day: .5 hour per day Rehab Potential: Fair Barriers to Learning: Recent CVA Pt/Family Agrees to Plan: Yes Safety Risks/Education Teaching Recipient: Patient, Significant Other Teaching Methods: Demonstration, Discussion Response to Teaching: Verbalize Understanding, Return Demonstration Education Topics Provided: Continued safety upon his return home. Time Speech Therapy Time In: 11:00 Speech Therapy Time Out: 11:30 Total Billed Time: 30 Billed Treatment Time 1, SLTS No QUALITY CODES: EXPRESSION OF IDEAS/WANTS: 4 UNDERSTANDING VERBAL CONTENT: 4 BRIEF INTERVIEW MENTAL STATUS: YES REPETITION OF 3 WORDS: 3 TEMPORAL ORIENTATION: YEAR: CORRECT, MONTH: CORRECT, DAY: CORRECT RECALL SOCK: YES, COLOR: YES, BED: YES MEMORY/RECALL ABILITY: SEASON, LOCATION OF ROOM, STAFF NAMES, THAT HE IS IN THE [facility] BRIAN DILL Apr 29, 2020 11:36
--- NOTE | 2020-04-29 11:38 | PM&R Progress Note ---
Subjective HPI/CC On Admission Date Seen by Provider: Apr 29, 2020 Time Seen by Provider: 10:00 Subjective/Events-last exam 04/29/20: Dr. Drake will give guidance on in and out catheters for retention Pet pass was approved. His will bring his dog in Macrobid maintained Bowels moved after suppository give every 48hrs Labs look good 04/28/20: Patient reports feeling pretty good [facility] Wed for skilled Cath in/out will be arranged with Urology prior to DC 04/27/20: Baclofen helpful for left arm pain Suppository every other day produces BM Bladder scanned and in/out cath maintained DC to [facility] 04/26/20: Actually stood up on his own without use of mup-zu-tmuku secured a wheelchair van Dr. Drake placed him on Macrobid for UTI Rectal suppository will be given every other day if no BM 04/25/20: Bowels have not moved Still a little bit nauseated UTI treatment shows resistant to Bactrim so Dr. Drake will manage that and change antibiotics Overall doing pretty well otherwise 04/24/20: No more episodes of nausea, vomiting or constipation Changing Tux hemorrhoid pads to prn Overall feels like he is doing pretty well Disposition planned in the near future 04/23/20: UA and urine culture obtained by Dr. Drake Bactrim DS BID ordered Vomiting and nausea noted at times Dulcolax suppository will be given Lidocaine patch will be placed on is back 04/22/20: Catheter was required today, removing 450 CCs No pain is reported Overall participating in therapy No falls Using mehnaz lifts 04/21/20: Smearing BM so will place on commode to see if he can have a BM c/o urination with dysuria so will monitor that closely Multiple caths recently increased risk for UTI 04/20/2020: Patient slept well last night Urology saw him and thinks everything is going pretty well He only voids about once a day but he does have complete evacuation of the bladder No more nausea and vomiting like yesterday Bowels move yesterday but needs to maintain a good bowel regimen 04/19/20: Had another episode of nausea and vomiting Had two incontinent episodes because of the vomiting Bowels moved and it was large and he became Diaphoretic He's very motivated in therapy Will schedule laxatives 04/18/20: Nauseated with physical therapy again today Vomited yesterday Zofran was given today Bowels moved four days ago will start suppository in fleets No in/out catheter required 04/17/20: Patient required IN/OUT Catheter x2 Ongoing issue with Bladder retention Bowels not moving so will be given meds again Overall doing very well 04/16/20 Preston has been discontinued and voiding well Bladder scan and In and Out Caths if needed Left sided weakness remains Very motivated appears to be depressed currently today Baclofen in the morning really helps him so will continue that Dr Drake placed him on Bactrim for UTI e coli Labs noted Mehnaz lift required Preston cath replaced and will await Urology plan Slept well Checked meds and labs Conferred with RN Reviewed therapy notes Review of Systems General: Fatigue, Malaise Neurological: Weakness Objective Exam Vital Signs Vital Signs Date Time Temp Pulse Resp B/P (MAP) Pulse Ox O2 Delivery O2 Flow Rate FiO2 04/29/20 17:19 36.4 104 16 125/80 (95) 96 Room Air Capillary Refill : Less Than 3 Seconds General Appearance: No Apparent Distress, WD/WN, Chronically ill HEENT: PERRL/EOMI, Normal ENT Inspection, Pharynx Normal Neck: Full Range of Motion, Normal Inspection, Non Tender, Supple, Carotid Bruit Respiratory: Chest Non Tender, Lungs Clear, Normal Breath Sounds, No Accessory Muscle Use, No Respiratory Distress Cardiovascular: Regular Rate, Rhythm, No Edema, No Gallop, No JVD, No Murmur, N ormal Peripheral Pulses Gastrointestinal: Normal Bowel Sounds, No Organomegaly, No Pulsatile Mass, Non Tender, Soft Back: Normal Inspection, No CVA Tenderness, No Vertebral Tenderness Extremity: Normal Capillary Refill, Normal Inspection, Normal Range of Motion (except left side), Non Tender, No Calf Tenderness, No Pedal Edema Neurologic/Psychiatric: Alert, Oriented x3, No Motor/Sensory Deficits, Normal Mood/Affect, Depressed Affect, Facial Droop (left), Motor Weakness (left sided paresis 0/5 flaccid) Skin: Normal Color, Warm/Dry Lymphatic: No Adenopathy Results/Procedures Lab Laboratory Tests 04/29/20 04:55 Patient resulted labs reviewed. FIM Transfers Therapy Code Descriptions/Definitions Functional [place] Measure: 0=Not Assessed/NA 4=Minimal Assistance 1=Total Assistance 5=Supervision or Setup 2=Maximal Assistance 6=Modified [place] 3=Moderate Assistance 7=Complete IndependenceSCALE: Activities may be completed with or without assistive devices. 4-Yihbtogwzo-iyxjlnp completes the activity by him/herself with no assistance from a helper. 5-Set-up or Clean-up Assistance-helper sets up or cleans up; patient completes activity. [place] assists only prior to or following the activity. 4-Supervision or Touching Assistance-helper provides verbal cues and/or touching/steadying and/or contact guard assistance as patient completes activity. Assistance may be provided throughout the activity or intermittently. 3-Partial/Moderate Assistance-helper does LESS THAN HALF the effort. [place] lifts, holds or supports trunk or limbs, but provides less than half the effort. 2-Substantial/Maximal Assistance-helper does MORE THAN HALF the effort. [place] lifts or holds trunk or limbs and provides more than half the effort. 0-Ubqxvtisp-eblhdf does ALL the effort. Patient does none of the effort to complete the activity. Or, the assistance of 2 or more helpers is required for the patient to complete the activity. If activity was not attempted, code reason: 7-Patient Refused. 9-Not Applicable-not attempted and the patient did not perform the activity before the current illness, exacerbation or injury. 10-Not Attempted due to Environmental Limitations-(lack of equipment, weather restraints, etc.). 88-Not Attempted due to Medical Conditions or Safety Concerns. Roll Left to Right (QC): 3 Sit to Lying (QC): 3 Sit to Stand (QC): 2 Chair/Drc-qf-Ifugl Xfer(QC): 3 Car Transfer (QC): 1 Gait Training Does the Patient Walk?: Yes Distance: 6'x4 Walk 10 feet (QC): 88 Walk 50 ft with 2 Turns(QC): 88 Walk 150 ft (QC): 88 Walking 10ft/uneven surface-QC: 88 Gait Persons Needed: 3 Gait Assistive Device: Parallel Bars Wheelchair Training Does the Pt Use a Wheelchair?: Yes Distance: 150' Wheel 50 ft with 2 turns (QC): 3 Wheel 150 ft (QC): 3 Type of Wheelchair: Manual Stair Training 1 Step (curb) (QC): 88 4 Steps (QC): 88 12 Steps (QC): 88 Balance Picking up an Object (QC): 88 ADL-Treatment Eating (QC): 5 Oral Hygiene (QC): 5 Bathing Location: L Arm, R Arm, L Upper Leg, R Upper Leg, Chest, Perineal Area Shower/Bathe Self (QC): 3 (Mod assist overall. Pt. requires cues to sequence and attempt different areas of body during shower.) Upper Body Dressing (QC): 2 (Attempted "flip" method overhead, as pt. has been using this method. Required max assist for this.) Lower Body Dressing (QC): 1 On/Off Footwear (QC): 1 (Pt. is able to raise right LE, but is unable to hold s ock or shoe, or move left LE.) Toileting Hygiene (QC): 1 Toilet Transfer (QC): 2 Assessment/Plan Assessment and Plan Assess & Plan/Chief Complaint Assessment: Catastrophic CVA with left sided flaccidity Left facial droop COVID-19 antibody + Bipolar disorder Autism spectrum Urinary retention Preston cath in place consulted Dr Drake Plan: IRF protocol Dr Drake consultation Monitor bowel function Fall risk CBD oil Mehnaz lift Voiding much better on his own Maintain bladder meds Bowel regimen Decreasing pain medication 04/01/20: Voltaren gel for back pain Lortab for pain Mehnaz lift completely no sit-2-stand ability Flaccid left side continues 04/02/20: Patient went to father's today Continue Voltaren gel for back pain Sit to stand no longer an option needs Mehnaz lift 04/03/20: Bowels moved 2 days ago Laxatives ordered Discontinue the Preston catheter and Dr. Matias will monitor closely for retention Completed Augmentin Baclofen and pain medication taken on a real regular basis prone for dependency and addiction potential 04/04/20: Urology management of urinary retention since catheter removed Continue pain management but addiction potential noted Air mattress to prevent skin breakdown Laxatives due to constipation now 04/05/20: Bowels still not moving, supp and Fleets and SSE will be given Decrease pain meds to Q6hrs due to overuse and narcotic bowel noted complications Addiction potential noted Preston cath replaced and Flomax and Urecholine maintained now 04/06/20: Weaned Lortab Baclofen prn is working well BM regimen to continue Preston cath 04/07/20: Baclofen 10mg at night Maintain BM regimen Likely preston cath will be required again 04/08/20: Preston reinserted Labs stable BM regimen 04/09/20: Improvement in spontaneous urination Maintain Flomax and Urecholine Monitor closely 04/10/20: Disposition pending Continue aggressive therapy Cystoscopy Bladder meds 04/11/20: Had Cysto today by Urology Urinalysis is pending Pain pill on rare occasions 04/12/20: Maintain Baclofen Dr. Drake to manage Ecoli UTI Maintain Mehnaz lift In/Out catheter prn 04/13/20: UTI Tx Bactrim Monitor closely 04/14/20: UTI Tx Check labs in am 04/15/20: Radha helping with Hemorrhoids Labs reviewed Baclofen working well Last pain pill was 4 days ago 04/17/20: Laxatives Bladder management Family education 04/18/20: Monitor nausea and vomiting Needs suppository or enema today Monitor closely 04/19/20: Monitor nausea and vomiting Laxatives will be ordered on a more scheduled basis Monitor closely 04/20/2020: Continue bowel regimen Monitor for urinary retention Aggressive therapy 04/21/20: Monitor dysuria Monitor labs BM regimen 04/22/20: Catheter as needed for retention Labs reviewed all normal Continue aggressive treatment 04/23/20: UTI diagnosed by urology Bactrim was started again Vomiting and nauseated Will give suppository for constipation today Lidocaine patch for his back per 's request 04/24/20: Continue aggressive bowel regimen Follow up on urine culture Scopolamine patch as needed 04/25/20: Bowel regimen to prevent constipation UTI is resistant to Bactrim will change that 04/26/20: Dramatic improvement in his ability to stand UTI treatment with Macrobid Will do a rectal suppository every other day if he hasn't had a bowel movement on his own 04/27/20: NH placement [facility] Wed Monitor pain BM regimen 04/28/20: NH Wednesday Cath in/out parn Monitor BP 04/29/20: Inquire with urology regarding catheter scheduled Pet pass approved Continue suppository every 48 hours (1) Acute right MCA stroke Status: Acute (2) Facial droop due to cerebrovascular accident (CVA) (3) Bipolar disorder (4) Autism spectrum (5) Urinary retention (6) Preston catheter in place (7) Coronavirus infection, unspecified Status: Chronic (8) Left-sided neglect Status: Acute (9) Dysphasia due to recent cerebrovascular accident (CVA) Status: Acute AIDE GATICA DO Apr 29, 2020 11:38
--- NOTE | 2020-04-29 11:56 | Progress Note - Urology ---
Progress Note-Urology Progress Notes/Assess & Plan Progress/Assessment & Plan GOING TO IN WEDNESDAY. TO DO STRAIGHT CATH PRN Final Diagnosis URINE RETENTION TIFFANIE WOMACK MD Apr 29, 2020 11:56
--- NOTE | 2020-04-29 13:20 | NUR ---
CM/SS CONCURRENT DOCUMENTATION, DISCHARGE PLANNING Tentative target discharge is 05/01/20. Referral sent to patient/spouse choice SNF, [facility]. Spouse Carole is an employee there and wishes to return to work and have patient there under skilled services. As of Wednesday, [facility] stated they were not in network for [employer] insurance; however, when fha underwriter reached out to [facility] for potential referral there, they checked network with insurance and they indicated the [facility] was a network option. Followed up with Veronica at [facility] today and after the facility made some calls they requested updated clinical to submit for benefits. Provided, await their update about insurance authorization. Carole considers it extremely important to be able to visit patient, if he was in [facility] and she was working, obviously they could see each other. Generally speaking, SNFs are not allowing visitors under Covid19 protocols. If the insurance will not approve skilled benefits for patient, the dilemma will then be that his home is not suitable for his return there. Continue complex discharge planning.
--- NOTE | 2020-04-29 14:06 | Physical Therapy Daily Note ---
PT Daily Note-Current Subjective Patient in bed pre tx, agrees to PT, states he has some minor low back pain. states patient would like to use the commode. Appearance Patient in WC at bedside post tx with nurse call, in room. Patient encouraged to sit up for as long as he can Mental Status Patient Orientation: Person, Place, Situation Transfers SCALE: Activities may be completed with or without assistive devices. 4-Txbvthmzls-nqjbtdm completes the activity by him/herself with no assistance from a helper. 5-Set-up or Clean-up Assistance-helper sets up or cleans up; patient completes activity. [place] assists only prior to or following the activity. 4-Supervision or Touching Assistance-helper provides verbal cues and/or touching/steadying and/or contact guard assistance as patient completes activity. Assistance may be provided throughout the activity or intermittently. 3-Partial/Moderate Assistance-helper does LESS THAN HALF the effort. [place] lifts, holds or supports trunk or limbs, but provides less than half the effort. 2-Substantial/Maximal Assistance-helper does MORE THAN HALF the effort. [place] lifts or holds trunk or limbs and provides more than half the effort. 2-Woczqmaxb-cwtlul does ALL the effort. Patient does none of the effort to complete the activity. Or, the assistance of 2 or more helpers is required for the patient to complete the activity. If activity was not attempted, code reason: 7-Patient Refused. 9-Not Applicable-not attempted and the patient did not perform the activity before the current illness, exacerbation or injury. 10-Not Attempted due to Environmental Limitations-(lack of equipment, weather restraints, etc.). 88-Not Attempted due to Medical Conditions or Safety Concerns. Roll Left & Right (QC): 3 Lying to Sitting/Side of Bed(Q: 3 Sit to Stand (QC): 2 Chair/Gqx-wh-Wssqz Xfer(QC): 3 Supine to sit, stand pivot transfer to bedside commode while pulls down patient's pants. Patient is not able to have a BM, PT tech helps pull patients pants back up and moves commode and puts WC behind patient and he sits. Max assist for standing. Weight Bearing Full Weight Bearing Full Weight Bearing Wheelchair Training Does the Pt Use a Wheelchair?: Yes Wheel 50 ft with 2 turns (QC): 4 Wheel 150 ft (QC): 4 Type of Wheelchair: Manual 300' SBA, patient has difficulty getting through doorways or around obstacles due to his left neglect but has gotten better and can do it with multiple tries and cues. Treatments bed mobility and transfers, WC mobility, toileting Assessment Current Status: Fair Progress improved WC mobility PT Short Term Goals Short Term Goals Time Frame: Apr 04, 2020 Roll Left & Right: 3 Sit to lyin Lying to sitting on side of be: 3 Sit to stand: 3 Chair/yqm-mo-eppwt transfer: 2 PT Group Home Goals Group Home Goals PT Director Of Scientific Research Goals Time Frame: Apr 18, 2020 Roll Left & Right (QC): 3 (Pablo) Sit to Lying (QC): 3 (Pablo) Lying-Sitting on Side/Bed(QC): 3 (Pablo) Sit to Stand (QC): 3 (Pbalo) Chair/Afj-mz-Qtlfk Xfer(QC): 3 (Pablo) Toilet Transfer (QC): 3 (Pablo) Car Transfer (QC): 3 (mod A) Does the Patient Walk: No and Walking Goal NOT indicated Walk 10 feet (QC): 88 Walk 50ft with 2 Turns (QC): 88 Walk 150 ft (QC): 88 Walking 10ft on Uneven Surface: 88 1 Step (curb) (QC): 88 4 Steps (QC): 88 12 Steps (QC): 88 Picking up an Object (QC): 88 Does the Pt use WC or Scooter?: Yes Wheel 50 feet with 2 turns (QC: 3 (Pablo) Type: Manual Wheel 150 feet: 3 (Pablo) Type: Manual PT Plan Problem List Problem List: Activity Tolerance, Functional Strength, Safety, Balance, Gait, Transfer, Bed Mobility, ROM Treatment/Plan Treatment Plan: Continue Plan of Care Treatment Plan: Bed Mobility, Education, Functional Activity [place], Functional Strength, Group Therapy, Gait, Safety, Therapeutic Exercise, Transfers Treatment Duration: Apr 18, 2020 Frequency: At least 5 of 7 days/Wk (IRF) Estimated Hrs Per Day: 1.5 hours per day Patient and/or Family Agrees t: Yes Safety Risks/Education Patient Education: Transfer Techniques, Correct Positioning, W/C Management, Safety Issues Teaching Recipient: Patient Teaching Methods: Demonstration, Discussion Response to Teaching: Reinforcement Needed Time/GCodes Time In: 1300 Time Out: 1330 Total Billed Treatment Time: 30 Total Billed Treatment 1 visit FA 15' [facility] 15' MARK RYAN PT Apr 29, 2020 14:06
--- NOTE | 2020-04-29 16:14 | Cardiology Progress Note ---
Cardiology SOAP Progress Note Subjective: No cardiac complaints. Objective: I&O/Vital Signs 04/29/20 04/29/20 05:04 09:00 Temp 37.0 Pulse 66 Resp 18 B/P (MAP) 123/76 (92) Pulse Ox 96 96 O2 Delivery Room Air Room Air 04/29/20 00:00 Intake Total 540 ml Output Total 925 ml Balance -385 ml Constitutional: AAO x 3, PERRL, well-developed, well-nourished Respiratory: chest is bilaterally symmetric, lungs clear to auscultation Cardiovascular: regular rate-rhythm, S1 and S2 Gastrointestional: soft, audible bowel sounds Extremities: no lower extremity edema bilateral Neurologic/Psychiatric: facial droop (left), other (left sided flaccid) Skin: No rash on exposed areas, No ulcerations on exposed areas Results/Procedures: Labs Laboratory Tests 04/29/20 04:55: White Blood Count 5.7, Red Blood Count 3.94L, Hemoglobin 11.5L, Hematocrit 36L, Mean Corpuscular Volume 90, Mean Corpuscular Hemoglobin 29, Mean Corpuscular Hemoglobin Concent 32, Red Cell Distribution Width 13.2, Platelet Count 224, Mean Platelet Volume 11.6H, Neutrophils (%) (Auto) 56, Lymphocytes (%) (Auto) 38, Monocytes (%) (Auto) 4, Eosinophils (%) (Auto) 2, Basophils (%) (Auto) 0, Neutrophils # (Auto) 3.2, Lymphocytes # (Auto) 2.2, Monocytes # (Auto) 0.3, Eosinophils # (Auto) 0.1, Basophils # (Auto) 0.0, Sodium Level 142, Potassium Level 4.0, Chloride Level 108H, Carbon Dioxide Level 27, Anion Gap 7, Blood Urea Nitrogen 18, Creatinine 0.70, Estimat Glomerular Filtration Rate > 60, BUN/Creatinine Ratio 26, Glucose Level 100, Calcium Level 9.2, Corrected Calcium 9.5, Total Bilirubin 0.4, Aspartate Amino Transf (AST/SGOT) 15, Alanine Aminotransferase (ALT/SGPT) 18, Alkaline Phosphatase 60, Total Protein 6.2L, Albumin 3.6 Microbiology 04/23/20 Urine Culture - Final, Complete Escherichia coli 04/10/20 MRSA Screen - Final, Complete MRSA not isolated A/P: Assessment/Dx: Hypertension, better controlled now. Cryptogenic stroke - ILR implanted on 03-26-2020 Non-occlusive carotid dz, minimal plaque seen on carotid u/s of March 25, 2020 Echocardiogram of March 26, 2020: 55-65% showed normal LV function with no wall motion abnormalities. Negative bubble study ruled out significant intracardiac shunting (+) COVID antibody on testing of March 25, 2020 Plan: BP control Monitor labs from time to time Thank you for your consultation. Please call me if you have any questions. Tiesha Arevalo MD, FACP, FACC, FSCAI, FHRS, CCDS Interventional Cardiology Cardiac Electrophysiology Vascular Medicine and Endovascular Interventions Shaggy AREVALO MD Apr 29, 2020 16:14
[2020-04-29] MEDS: ENOXAPARIN 40 MG/0.4 ML (LOVENOX) SYR SC SCH (16:30)
[2020-04-29 17:19] VITALS: BP 125/80
[2020-04-29] MEDS: BACLOFEN 10 MG (LIORESAL) TAB PO SCH (21:04)
[2020-04-29] MEDS: SERTRALINE 50 MG (ZOLOFT) TABLET PO SCH (21:04)
[2020-04-30] MEDS: LIDOCAINE UROJET 2% GEL 10 ML PKG TOP PRN (03:00)
--- NOTE | 2020-04-30 03:00 | NUR ---
Scanned bladder at 0300. 316ml scanned in bladder. Straight cathed 350ml. Patient tolerated procedure well.
[2020-04-30 05:40] VITALS: BP 121/74
[2020-04-30] MEDS: BETHANECHOL 25 MG (URECHOLINE) TAB PO SCH ×4 (06:11→20:23)
--- NOTE | 2020-04-30 08:30 | NUR ---
Patient is complaining of nausea this morning and has asked to take pills later in morning.
--- NOTE | 2020-04-30 08:48 | Occupational Ther Daily Note ---
OT Current Status-Daily Note Subjective Pt was alert, laying in bed. Pt reported pain in left hand and that he is worried, positioned L hand to decrease pain. Mental Status/Objective Patient Orientation: Person, Place, Time, Situation ADL-Treatment Pt transferred from supine to EOB with min assist. Pt transferred from EOB to w/c with mod assist. Pt propelled w/c with minimal cues for awareness of objects on L side to large shower. Therapy Code Descriptions/Definitions Functional [place] Measure: 0=Not Assessed/NA 4=Minimal Assistance 1=Total Assistance 5=Supervision or Setup 2=Maximal Assistance 6=Modified [place] 3=Moderate Assistance 7=Complete IndependenceSCALE: Activities may be completed with or without assistive devices. 7-Gguywnabsr-izizcnq completes the activity by him/herself with no assistance from a helper. 5-Set-up or Clean-up Assistance-helper sets up or cleans up; patient completes activity. [place] assists only prior to or following the activity. 4-Supervision or Touching Assistance-helper provides verbal cues and/or touching/steadying and/or contact guard assistance as patient completes activity. Assistance may be provided throughout the activity or intermittently. 3-Partial/Moderate Assistance-helper does LESS THAN HALF the effort. [place] lifts, holds or supports trunk or limbs, but provides less than half the effort. 2-Substantial/Maximal Assistance-helper does MORE THAN HALF the effort. [place] lifts or holds trunk or limbs and provides more than half the effort. 4-Tumsiqxqn-fkyzmh does ALL the effort. Patient does none of the effort to complete the activity. Or, the assistance of 2 or more helpers is required for the patient to complete the activity. If activity was not attempted, code reason: 7-Patient Refused. 9-Not Applicable-not attempted and the patient did not perform the activity before the current illness, exacerbation or injury. 10-Not Attempted due to Environmental Limitations-(lack of equipment, weather restraints, etc.). 88-Not Attempted due to Medical Conditions or Safety Concerns. Eating (QC): 6 (Using clinical judgment, pt demonstrates ability to set own meal up with alternative strategies to open packages.) Oral Hygiene (QC): 6 (Using clinical judgement, pt demonstrates the ability to complete oral care using alternative strategies.) Bathing Location: L Arm (lift arm to wash and rinse), R Arm, L Upper Leg, R Upper Leg, Chest, Abdomen, Perineal Area Shower/Bathe Self (QC): 3 (mod assist using roller shower chair with cutout, handheld shower, and grab bar. Pt required setup.) Upper Body Dressing (QC): 2 (pt needed verbal cues to thread arms through sleeves. Min assist to kiln puller head. max assist to button shirt.) Lower Body Dressing (QC): 1 (assist x2 to stand and other to hike pants. due to decrease sitting balance, pt unable to thread legs through pants.) On/Off Footwear: 2 Toileting Hygiene (QC): 1 (Using clinical judgment, pt requires assist x2 clothing manipulation and hygiene. Pt is utilizing bed moscoso and urinal to complete toileting.) Pt is able to pull to stand using grabbar with R UE, stabilization at knee and hip in standing while changing w/c <--> rolling shower chair. Other Treatment OT/PT cotreat ([id number]), skills of 2 clinicians required for neuromuscular retraining for mobility, transfers, ADLs and ambulation. PT working on mobility, transfers and ambulation. OT working on ADLs, positioning L UE/LE during transfers and ambulation. See PT notes for progress on mobility. 1/4" subluxation noted with L shldr, positioned to decrease. Tone noted in L UE though no intentional movement. After therapy, pt left in care of PT. All needs met in room. OT Short Term Goals Short Term Goals Time Frame: Apr 11, 2020 Eatin Oral hygiene: 3 Toileting hygiene: 3 Shower/bathe self: 2 Upper body dressin Lower body dressin Putting on/taking off footwear: 2 OT Packer Operator Automatic Goals Packer Operator Automatic Goals Time Frame: Apr 25, 2020 Eating (QC): 4 (met) Oral Hygiene (QC): 4 (continue) Toileting Hygiene (QC): 3 (continue) Shower/Bathe Self (QC): 3 (new goal- Min assist) Upper Body Dressing (QC): 4 (continue) Lower Body Dressing (QC): 4 (continue) On/Off Footwear (QC): 4 (continue) Additional Goals: 1-Demonstrate ADL Tasks, 2-Verbalize Understanding, 3- ImproveStrength/[place] 1=Demonstrate adherence to instructed precautions during ADL tasks. 2=Patient will verbalize/demonstrate understanding of assistive devices/modifications for ADL. 3=Patient will improve strength/tolerance for activity to enable patient to perform ADL's. OT Education/Plan Problem List/Assessment Assessment: Decreased Activ Tolerance, Decreased Safety Aware, Decreased UE Strength, Dependent Transfers, Impaired Bed Mobility, Impaired Cognition, Impaired Coordination, Impaired Funct Balance, Impaired I ADL's, Impaired Self- Care Skills, Restricted Funct UE ROM, Visual-Perceptual Deficit Discharge Recommendations Plan/Recommendations: Continue POC Treatment Plan/Plan of Care Patient would benefit from OT for education, treatment and training to promote independence in ADL's, mobility, safety and/or upper extremity function for ADL's. Plan of Care: ADL Retraining, Functional Mobility, UE Funct Exercise/Act, UE Neuromus Re-Ed/Coord, Visual/Perceptual Retrain Treatment Duration: Apr 25, 2020 Frequency: At least 5 of 7 days/Wk (IRF) Estimated Hrs Per Day: 1.5 hours per day Agreement: Yes Rehab Potential: Fair Time/GCodes Start Time: 07:15 Stop Time: 08:45 Total Time Billed (hr/min): 90 Billed Treatment Time 1 visit-ADL 3 (45 min) NM 3 (45 min) co-treat with PT 45 min ([id number]), individual treatment 45 min ([id number]) JOSIAH ESCALANTE Apr 30, 2020 08:47
--- NOTE | 2020-04-30 08:53 | Physical Therapy Daily Note ---
PT Daily Note-Current Subjective Patient in shower room pre tx, agrees to PT, has no complaints of pain. Will be co-treating with OT due to poor patient mobility, strength, endurance, left hemiparesis, poor sitting and standing balance, the need to coordinate UE and LE during activity. Appearance Patient in bed post tx with nurse call, phone, tray, all needs met. Mental Status Patient Orientation: Person, Place, Situation Transfers SCALE: Activities may be completed with or without assistive devices. 8-Togjzfmfzp-xrexfjo completes the activity by him/herself with no assistance from a helper. 5-Set-up or Clean-up Assistance-helper sets up or cleans up; patient completes activity. [place] assists only prior to or following the activity. 4-Supervision or Touching Assistance-helper provides verbal cues and/or touching/steadying and/or contact guard assistance as patient completes activi ty. Assistance may be provided throughout the activity or intermittently. 3-Partial/Moderate Assistance-helper does LESS THAN HALF the effort. [place] lifts, holds or supports trunk or limbs, but provides less than half the effort. 2-Substantial/Maximal Assistance-helper does MORE THAN HALF the effort. [place] lifts or holds trunk or limbs and provides more than half the effort. 4-Ebruorbae-xjmtqh does ALL the effort. Patient does none of the effort to complete the activity. Or, the assistance of 2 or more helpers is required for the patient to complete the activity. If activity was not attempted, code reason: 7-Patient Refused. 9-Not Applicable-not attempted and the patient did not perform the activity before the current illness, exacerbation or injury. 10-Not Attempted due to Environmental Limitations-(lack of equipment, weather restraints, etc.). 88-Not Attempted due to Medical Conditions or Safety Concerns. Roll Left & Right (QC): 4 Sit to Lying (QC): 3 Lying to Sitting/Side of Bed(Q: 3 Sit to Stand (QC): 3 Chair/Utg-gh-Kycdb Xfer(QC): 3 Toilet Transfer (QC): 3 Car Transfer (QC): 2 Patient performs bed mobility with SBA, supine <-> sit min assist, sit <-> stand min assist, transfers with mod assist, car transfer max assist. Patient needs careful cues for positioning and safety prior to movement. Practiced rolling from side to side and supine to sit, patient eventually became nauseated and had to stop this. Weight Bearing Full Weight Bearing Full Weight Bearing Gait Training Distance: 6'x2 Gait Persons Needed: 1 Gait Assistive Device: Parallel Bars Patient can ambulate 6' in the parallel bars with max assist, WC follow, needs assist with balance and advancing his left leg. Wheelchair Training Does the Pt Use a Wheelchair?: Yes Wheel 50 ft with 2 turns (QC): 4 Wheel 150 ft (QC): 4 Type of Wheelchair: Manual Patient can propel a manual WC 150' with SBA, patient has left neglect and has trouble going around obstacles or through doorways but can do it with cues Stair Training 1 Step (curb) (QC): 88 4 Steps (QC): 88 12 Steps (QC): 88 Balance Picking up an Object (QC): 88 Exercises sit to stand 3 sets of 5 Treatments PT performed bed mobility and transfers, ambulation, WC mobility, OT worked on UE positioning and safety during mobility, assist with ambulation Assessment Current Status: Fair Progress nausea interferes with rehab PT Short Term Goals Short Term Goals Time Frame: Apr 04, 2020 Roll Left & Right: 3 Sit to lyin Lying to sitting on side of be: 3 Sit to stand: 3 Chair/sve-kh-koaus transfer: 2 PT Chcf Goals Sheet Metal Journeyman Goals PT Chcf Goals Time Frame: Apr 18, 2020 Roll Left & Right (QC): 3 (Pablo) Sit to Lying (QC): 3 (Pablo) Lying-Sitting on Side/Bed(QC): 3 (Pablo) Sit to Stand (QC): 3 (Pablo) Chair/Snp-xu-Diurq Xfer(QC): 3 (Pablo) Toilet Transfer (QC): 3 (Pablo) Car Transfer (QC): 3 (mod A) Does the Patient Walk: No and Walking Goal NOT indicated Walk 10 feet (QC): 88 Walk 50ft with 2 Turns (QC): 88 Walk 150 ft (QC): 88 Walking 10ft on Uneven Surface: 88 1 Step (curb) (QC): 88 4 Steps (QC): 88 12 Steps (QC): 88 Picking up an Object (QC): 88 Does the Pt use WC or Scooter?: Yes Wheel 50 feet with 2 turns (QC: 3 (Pablo) Type: Manual Wheel 150 feet: 3 (Pablo) Type: Manual PT Plan Problem List Problem List: Activity Tolerance, Functional Strength, Safety, Balance, Gait, Transfer, Bed Mobility, ROM Treatment/Plan Treatment Plan: Continue Plan of Care Treatment Plan: Bed Mobility, Education, Functional Activity [place], Functional Strength, Group Therapy, Gait, Safety, Therapeutic Exercise, Transfers Treatment Duration: Apr 18, 2020 Frequency: At least 5 of 7 days/Wk (IRF) Estimated Hrs Per Day: 1.5 hours per day Patient and/or Family Agrees t: Yes Safety Risks/Education Patient Education: Gait Training, Transfer Techniques, Correct Positioning, W/C Management, Safety Issues Teaching Recipient: Patient Teaching Methods: Demonstration, Discussion Response to Teaching: Reinforcement Needed Time/GCodes Time In: 0800 Time Out: 0900 Total Billed Treatment Time: 60 Total Billed Treatment 1 visit FA 60' co-treated with OT for 45' MARK RYAN PT Apr 30, 2020 08:53
[2020-04-30] MEDS: ONDANSETRON 4 MG (ZOFRAN) ORAL DISSOLVE TAB PO PRN (09:08)
[2020-04-30] MEDS: DOCUSATE SODIUM 100 MG (COLACE) CAP PO SCH ×2 (10:45→20:23)
[2020-04-30] MEDS: meTOproloL SUCCINATE 50 MG (TOPROL XL) TAB PO SCH (10:45)
[2020-04-30] MEDS: SENNA W/DOCUSATE (SENOKOT S) TABLET PO SCH ×2 (10:45→20:23)
[2020-04-30] MEDS: NITROFURANTOIN 100 MG (MACROBID) CAPSULE PO SCH ×2 (10:45→17:57)
[2020-04-30] MEDS: TAMSULOSIN 0.4 MG (FLOMAX) CAP PO SCH ×2 (10:46→20:24)
[2020-04-30] MEDS: BACLOFEN 10 MG (LIORESAL) TAB PO PRN (10:46)
[2020-04-30] MEDS: ASPIRIN 325 MG (5 GR) TABLET PO SCH (10:46)
[2020-04-30] MEDS: polyethylene glycoL POWDER 17 GM (MIRALAX) PACK PO SCH ×2 (10:46→20:24)
--- NOTE | 2020-04-30 10:46 | PM&R Progress Note ---
Subjective HPI/CC On Admission Date Seen by Provider: Apr 30, 2020 Time Seen by Provider: 09:00 Subjective/Events-last exam 04/30/20: Straight-cath was required Bowels moved on 04/28 and suppository will be given today, he tends to have some vomiting if he doesn't have a BM every other day Scopolamine patch maintained 04/29/20: Dr. Drake will give guidance on in and out catheters for retention Pet pass was approved. His will bring his dog in Macrobid maintained Bowels moved after suppository give every 48hrs Labs look good 04/28/20: Patient reports feeling pretty good [facility] [place] Wed for skilled Cath in/out will be arranged with Urology prior to DC 04/27/20: Baclofen helpful for left arm pain Suppository every other day produces BM Bladder scanned and in/out cath maintained DC to ID [facility] [place] 04/26/20: Actually stood up on his own without use of zio-op-biplu secured a wheelchair van Dr. Drake placed him on Macrobid for UTI Rectal suppository will be given every other day if no BM 04/25/20: Bowels have not moved Still a little bit nauseated UTI treatment shows resistant to Bactrim so Dr. Drake will manage that and change antibiotics Overall doing pretty well otherwise 04/24/20: No more episodes of nausea, vomiting or constipation Changing Tux hemorrhoid pads to prn Overall feels like he is doing pretty well Disposition planned in the near future 04/23/20: UA and urine culture obtained by Dr. Drake Bactrim DS BID ordered Vomiting and nausea noted at times Dulcolax suppository will be given Lidocaine patch will be placed on is back 04/22/20: Catheter was required today, removing 450 CCs No pain is reported Overall participating in therapy No falls Using mehnaz lifts 04/21/20: Smearing BM so will place on commode to see if he can have a BM c/o urination with dysuria so will monitor that closely Multiple caths recently increased risk for UTI 04/20/2020: Patient slept well last night Urology saw him and thinks everything is going pretty well He only voids about once a day but he does have complete evacuation of the b ladder No more nausea and vomiting like yesterday Bowels move yesterday but needs to maintain a good bowel regimen 04/19/20: Had another episode of nausea and vomiting Had two incontinent episodes because of the vomiting Bowels moved and it was large and he became Diaphoretic He's very motivated in therapy Will schedule laxatives 04/18/20: Nauseated with physical therapy again today Vomited yesterday Zofran was given today Bowels moved four days ago will start suppository in fleets No in/out catheter required 04/17/20: Patient required IN/OUT Catheter x2 Ongoing issue with Bladder retention Bowels not moving so will be given meds again Overall doing very well 04/16/20 Preston has been discontinued and voiding well Bladder scan and In and Out Caths if needed Left sided weakness remains Very motivated appears to be depressed currently today Baclofen in the morning really helps him so will continue that Dr Drake placed him on Bactrim for UTI e coli Labs noted Mehnaz lift required Preston cath replaced and will await Urology plan Slept well Checked meds and labs Conferred with RN Reviewed therapy notes Review of Systems General: Fatigue, Malaise Neurological: Weakness Objective Exam Vital Signs Vital Signs Date Time Temp Pulse Resp B/P (MAP) Pulse Ox O2 Delivery O2 Flow Rate FiO2 04/30/20 16:33 36.2 64 16 109/60 (76) 97 Room Air Capillary Refill : Less Than 3 Seconds General Appearance: No Apparent Distress, WD/WN, Chronically ill HEENT: PERRL/EOMI, Normal ENT Inspection, Pharynx Normal Neck: Full Range of Motion, Normal Inspection, Non Tender, Supple, Carotid Bruit Respiratory: Chest Non Tender, Lungs Clear, Normal Breath Sounds, No Accessory Muscle Use, No Respiratory Distress Cardiovascular: Regular Rate, Rhythm, No Edema, No Gallop, No JVD, No Murmur, Normal Peripheral Pulses Gastrointestinal: Normal Bowel Sounds, No Organomegaly, No Pulsatile Mass, Non Tender, Soft Back: Normal Inspection, No CVA Tenderness, No Vertebral Tenderness Extremity: Normal Capillary Refill, Normal Inspection, Normal Range of Motion (except left side), Non Tender, No Calf Tenderness, No Pedal Edema Neurologic/Psychiatric: Alert, Oriented x3, No Motor/Sensory Deficits, Normal Mood/Affect, Depressed Affect, Facial Droop (left), Motor Weakness (left sided paresis 0/5 flaccid) Skin: Normal Color, Warm/Dry Lymphatic: No Adenopathy Results/Procedures Lab Patient resulted labs reviewed. FIM Transfers Therapy Code Descriptions/Definitions Functional [place] Measure: 0=Not Assessed/NA 4=Minimal Assistance 1=Total Assistance 5=Supervision or Setup 2=Maximal Assistance 6=Modified [place] 3=Moderate Assistance 7=Complete IndependenceSCALE: Activities may be completed with or without assistive devices. 7-Kqiovvcpcc-ziigobq completes the activity by him/herself with no assistance from a helper. 5-Set-up or Clean-up Assistance-helper sets up or cleans up; patient completes activity. [place] assists only prior to or following the activity. 4-Supervision or Touching Assistance-helper provides verbal cues and/or touching/steadying and/or contact guard assistance as patient completes activity. Assistance may be provided throughout the activity or intermittently. 3-Partial/Moderate Assistance-helper does LESS THAN HALF the effort. [place] lifts, holds or supports trunk or limbs, but provides less than half the effort. 2-Substantial/Maximal Assistance-helper does MORE THAN HALF the effort. [place] lifts or holds trunk or limbs and provides more than half the effort. 9-Vytouusvv-ltmcie does ALL the effort. Patient does none of the effort to complete the activity. Or, the assistance of 2 or more helpers is required for the patient to complete the activity. If activity was not attempted, code reason: 7-Patient Refused. 9-Not Applicable-not attempted and the patient did not perform the activity before the current illness, exacerbation or injury. 10-Not Attempted due to Environmental Limitations-(lack of equipment, weather restraints, etc.). 88-Not Attempted due to Medical Conditions or Safety Concerns. Roll Left to Right (QC): 4 Sit to Lying (QC): 3 Sit to Stand (QC): 3 Chair/[place]-Kjfji Xfer(QC): 3 Car Transfer (QC): 2 Gait Training Does the Patient Walk?: Yes Distance: 6'x2 Walk 10 feet (QC): 88 Walk 50 ft with 2 Turns(QC): 88 Walk 150 ft (QC): 88 Walking 10ft/uneven surface-QC: 88 Gait Persons Needed: 1 Gait Assistive Device: Parallel Bars Wheelchair Training Does the Pt Use a Wheelchair?: Yes Distance: 150' Wheel 50 ft with 2 turns (QC): 4 Wheel 150 ft (QC): 4 Type of Wheelchair: Manual Stair Training 1 Step (curb) (QC): 88 4 Steps (QC): 88 12 Steps (QC): 88 Balance Picking up an Object (QC): 88 ADL-Treatment Eating (QC): 6 (Using clinical judgment, pt demonstrates ability to set own meal up with alternative strategies to open packages.) Oral Hygiene (QC): 6 (Using clinical judgement, pt demonstrates the ability to complete oral care using alternative strategies.) Bathing Location: L Arm (lift arm to wash and rinse), R Arm, L Upper Leg, R Upper Leg, Chest, Abdomen, Perineal Area Shower/Bathe Self (QC): 3 (mod assist using roller shower chair with cutout, handheld shower, and grab bar. Pt required setup.) Upper Body Dressing (QC): 2 (pt needed verbal cues to thread arms through sleeves. Min assist to order puller head. max assist to button shirt.) Lower Body Dressing (QC): 1 (assist x2 to stand and other to hike pants. due to decrease sitting balance, pt unable to thread legs through pants.) On/Off Footwear (QC): 2 Toileting Hygiene (QC): 1 (Pt requires assist x2 for toilet hygiene) Toilet Transfer (QC): 2 Assessment/Plan Assessment and Plan Assess & Plan/Chief Complaint Assessment: Catastrophic CVA with left sided flaccidity Left facial droop COVID-19 antibody + Bipolar disorder Autism spectrum Urinary retention Preston cath in place consulted Dr Drake Plan: IRF protocol Dr Drake consultation Monitor bowel function Fall risk CBD oil Mehnaz lift Voiding much better on his own Maintain bladder meds Bowel regimen Decreasing pain medication 04/01/20: Voltaren gel for back pain Lortab for pain Mehnaz lift completely no sit-2-stand ability Flaccid left side continues 04/02/20: Patient went to father's today Continue Voltaren gel for back pain Sit to stand no longer an option needs Mehnaz lift 04/03/20: Bowels moved 2 days ago Laxatives ordered Discontinue the Preston catheter and Dr. Matias will monitor closely for retention Completed Augmentin Baclofen and pain medication taken on a real regular basis prone for dependency and addiction potential 04/04/20: Urology management of urinary retention since catheter removed Continue pain management but addiction potential noted Air mattress to prevent skin breakdown Laxatives due to constipation now 04/05/20: Bowels still not moving, supp and Fleets and SSE will be given Decrease pain meds to Q6hrs due to overuse and narcotic bowel noted complications Addiction potential noted Preston cath replaced and Flomax and Urecholine maintained now 04/06/20: Weaned Lortab Baclofen prn is working well BM regimen to continue Preston cath 04/07/20: Baclofen 10mg at night Maintain BM regimen Likely preston cath will be required again 04/08/20: Preston reinserted Labs stable BM regimen 04/09/20: Improvement in spontaneous urination Maintain Flomax and Urecholine Monitor closely 04/10/20: Disposition pending Continue aggressive therapy Cystoscopy Bladder meds 04/11/20: Had Cysto today by Urology Urinalysis is pending Pain pill on rare occasions 04/12/20: Maintain Baclofen Dr. Drake to manage Ecoli UTI Maintain Mehnaz lift In/Out catheter prn 04/13/20: UTI Tx Bactrim Monitor closely 04/14/20: UTI Tx Check labs in am 04/15/20: Radha helping with Hemorrhoids Labs reviewed Baclofen working well Last pain pill was 4 days ago 04/17/20: Laxatives Bladder management Family education 04/18/20: Monitor nausea and vomiting Needs suppository or enema today Monitor closely 04/19/20: Monitor nausea and vomiting Laxatives will be ordered on a more scheduled basis Monitor closely 04/20/2020: Continue bowel regimen Monitor for urinary retention Aggressive therapy 04/21/20: Monitor dysuria Monitor labs BM regimen 04/22/20: Catheter as needed for retention Labs reviewed all normal Continue aggressive treatment 04/23/20: UTI diagnosed by urology Bactrim was started again Vomiting and nauseated Will give suppository for constipation today Lidocaine patch for his back per 's request 04/24/20: Continue aggressive bowel regimen Follow up on urine culture Scopolamine patch as needed 04/25/20: Bowel regimen to prevent constipation UTI is resistant to Bactrim will change that 04/26/20: Dramatic improvement in his ability to stand UTI treatment with Macrobid Will do a rectal suppository every other day if he hasn't had a bowel movement on his own 04/27/20: [facility] placement [facility] Monitor pain BM regimen 04/28/20: NH Wednesday Cath in/out parn Monitor BP 04/29/20: Inquire with urology regarding catheter scheduled Pet pass approved Continue suppository every 48 hours 04/30/20: Straight cath as needed Discharge pending depending on [facility] approval by insurance Walked on parallel bars with assist (1) Acute right MCA stroke Status: Acute (2) Facial droop due to cerebrovascular accident (CVA) (3) Bipolar disorder (4) Autism spectrum (5) Urinary retention (6) Preston catheter in place (7) Coronavirus infection, unspecified Status: Chronic (8) Left-sided neglect Status: Acute (9) Dysphasia due to recent cerebrovascular accident (CVA) Status: Acute AIDE GATICA DO Apr 30, 2020 10:46
--- NOTE | 2020-04-30 11:13 | Progress Note - Urology ---
Progress Note-Urology Progress Notes/Assess & Plan Progress/Assessment & Plan TO [facility] TOMORROW AND DO STRAIGHT CATH PRN. WE WILL SEE PRN Final Diagnosis RETENTION TIFFANIE WOMACK MD Apr 30, 2020 11:13
[2020-04-30] MEDS ORDERED: SCOPOLAMINE PATCH REMOVAL TP SCH (12:29)
[2020-04-30] MEDS: ACETAMINOPHEN 325 MG TABLET PO PRN (13:14)
[2020-04-30] MEDS: SCOPOLAMINE 1.5 MG (TRANSDERM-SCOP) PATCH TD SCH (13:17)
[2020-04-30] MEDS ORDERED: LIDO5JEL10 TOP (14:13)
[2020-04-30] MEDS ORDERED: NITR100C10 PO (14:13)
[2020-04-30] MEDS ORDERED: SENN-20 PO (14:13)
[2020-04-30] MEDS ORDERED: ENOX40DI8 SC (14:13)
[2020-04-30] MEDS ORDERED: CARB1DRO OU (14:13)
[2020-04-30] MEDS ORDERED: ASPI-808 PO (14:13)
[2020-04-30] MEDS ORDERED: Bethanechol Chl PO (14:13)
[2020-04-30] MEDS ORDERED: ATOR40TA NG (14:13)
[2020-04-30] MEDS ORDERED: SERT50TA9 PO (14:13)
[2020-04-30] MEDS ORDERED: DICL100G18 TOP (14:13)
[2020-04-30] MEDS ORDERED: TMSL.4C PO (14:13)
[2020-04-30] MEDS ORDERED: METO50TA7 PO (14:13)
[2020-04-30] MEDS ORDERED: ONDA4TAB11 PO (14:13)
[2020-04-30] MEDS ORDERED: SCOP1PAT11 TD (14:13)
[2020-04-30] MEDS ORDERED: BACL10TA PO ×2 (14:13)
--- NOTE | 2020-04-30 14:15 | Discharge Inst-Skilled Nursing ---
Discharge Inst-Skilled NF Reconcile Patient Problems Problems Reviewed?: Yes Patient Instructions Patient Problems: CVA Left sided weakness Urinary retention Goal: [place] Consult/Follow Up/Orders Follow Up Appt.: [facility] to establish Skilled NF Admit to: Certification (SNF) I certify that SNF services are required to be given on an inpatient basis because of the above named patient's need for senior living care on a continuing basis for the conditions(s) for which he/she was receiving inpatient hospital services prior to his/her transfer to the SNF. Retirement Facility Order: Nursing Services, Physical Medicine Physician-Evaluate & Treat, Physical Therapy-Evaluate & Treat, Speech Language-Evaluate & Treat Oxygen Delivery Method: Room Air Discharge Diet: No Restrictions Daily Activity as Tolerated: Yes Resuscitation Status: Full Code New & Resume Previous Orders New Medications: Aspirin (Aspirin) 325 Mg Tablet 325 MG PO DAILY@0900 for 30 Days, TAB Atorvastatin Calcium (Lipitor) 40 Mg Tablet 40 MG NG HS for 30 Days, TAB Baclofen (Baclofen) 10 Mg Tablet 10 MG PO HS for 30 Days, TAB Baclofen (Baclofen) 10 Mg Tablet 5 MG PO Q4HR PRN for MUSCLE SPASMS for 30 Days, TAB [Bethanechol Chl] () 25 MG TAB 50 MG PO ACHS for 30 Days, TAB Carboxymethylcellulose Sodium (Refresh Plus) 1 Each Droperette 1 EACH OU PRN PRN for DRY EYES for 30 Days, DROP Diclofenac Sodium (Voltaren) 100 Gm Gel..gram. 0 GM TOP QID PRN for PAIN-MODERATE (5-7) for 30 Days, TUBE Enoxaparin Sodium (Enoxaparin Sodium) 40 Mg/0.4 Ml Syringe 40 MG SC DAILY@1700 for 30 Days, SYRINGE Lidocaine HCl (Lidocaine HCl) 5 Ml Jel.pf.ta 1 ML TOP PRN PRN for CATHETERIZATION for 30 Days Metoprolol Succinate (Metoprolol Succinate) 50 Mg Tab.er.24h 50 MG PO DAILY for 30 Days, TAB Nitrofurantoin Monohyd/M-Cryst (Nitrofurantoin [place]-Mcr 100 mg) 100 Mg Capsule 100 MG PO BID WITH MEALS for 3 Days, CAP Ondansetron (Ondansetron Odt) 4 Mg Tab.rapdis 4 MG PO Q6H PRN for NAUSEA/VOMITING-1ST LINE for 30 Days, TAB Scopolamine (Transderm-Scop) 1 Each Patch.td72 1.5 MG TD Q72H for 30 Days, PATCH Sennosides/Docusate Sodium (Senna-Time S Tablet) 1 Each Tablet 1 EA PO BID for 30 Days, TAB Sertraline HCl (Sertraline HCl) 50 Mg Tablet 50 MG PO HS for 30 Days, TAB Tamsulosin HCl (Flomax) 0.4 Mg Cap 0.4 MG PO BID for 30 Days, CAP Continued Medications: [cbd] () 1 DROP SL DAILY, DROP Cranberry (Cranberry) 400 Mg Capsule 400 MG PO DAILY, CAP Garlic (Garlic) 500 Mg Capsule 500 MG PO DAILY, CAP Milk Thistle Seed Extract (Milk Thistle) 175 Mg Capsule 175 MG PO DAILY, CAP Omeprazole (Omeprazole) 20 Mg Tablet.dr 20 MG PO DAILY PRN for HEARTBURN, TAB Turmeric/Turmeric Root Extract (Turmeric 500 mg Capsule) 1 Each Capsule 1 EACH PO DAILY, CAP Discontinued Medications: Dextromethorphn/Acetaminoph/Cp (Vicks Nyquil Cold & Flu Liquid) 354 Ml Liquid 15-30 ML PO Q8H PRN for COUGH, EA Other Instructions In/Out cath prn per Dr Drake instructions Kiara Hyman Apr 30, 2020 14:14 Pneu Vac Indicated: Yes KIARA HYMAN DO Apr 30, 2020 14:15
--- NOTE | 2020-04-30 14:42 | Physical Therapy Daily Note ---
PT Daily Note-Current Subjective Patient in bed pre tx, agrees to PT, no complaints of pain. Appearance Patient in WC at bedside post tx with nurse call, phone, tray, all needs met. Mental Status Patient Orientation: Person, Place, Situation Transfers SCALE: Activities may be completed with or without assistive devices. 3-Bxxhxkznrr-oadciqf completes the activity by him/herself with no assistance from a helper. 5-Set-up or Clean-up Assistance-helper sets up or cleans up; patient completes activity. [place] assists only prior to or following the activity. 4-Supervision or Touching Assistance-helper provides verbal cues and/or touchin g/steadying and/or contact guard assistance as patient completes activity. Assistance may be provided throughout the activity or intermittently. 3-Partial/Moderate Assistance-helper does LESS THAN HALF the effort. Lyons lifts, holds or supports trunk or limbs, but provides less than half the effort. 2-Substantial/Maximal Assistance-helper does MORE THAN HALF the effort. [place] lifts or holds trunk or limbs and provides more than half the effort. 0-Qrcabvvdt-chbkid does ALL the effort. Patient does none of the effort to complete the activity. Or, the assistance of 2 or more helpers is required for the patient to complete the activity. If activity was not attempted, code reason: 7-Patient Refused. 9-Not Applicable-not attempted and the patient did not perform the activity before the current illness, exacerbation or injury. 10-Not Attempted due to Environmental Limitations-(lack of equipment, weather restraints, etc.). 88-Not Attempted due to Medical Conditions or Safety Concerns. Roll Left & Right (QC): 3 Lying to Sitting/Side of Bed(Q: 3 Sit to Stand (QC): 3 Chair/Bsb-li-Aickd Xfer(QC): 3 Weight Bearing Full Weight Bearing Full Weight Bearing Exercises Supine Ex: Ankle pumps, Quad Set, Glut sets, Heel Slides, Short Arc Quads, Straight leg raise, Hip abd/add Supine Reps: 20 (RLE) LLE PROM/stretching in all planes Treatments LE exercise, stretching, bed mobility and transfers Assessment Current Status: Fair Progress slow progress with functional mobility PT Short Term Goals Short Term Goals Time Frame: Apr 04, 2020 Roll Left & Right: 3 Sit to lyin Lying to sitting on side of be: 3 Sit to stand: 3 Chair/dyf-qz-izpbv transfer: 2 PT Mortgage Advisor Goals Mcc Goals PT Mortgage Advisor Goals Time Frame: Apr 18, 2020 Roll Left & Right (QC): 3 (Pablo) Sit to Lying (QC): 3 (Pablo) Lying-Sitting on Side/Bed(QC): 3 (Pablo) Sit to Stand (QC): 3 (Pablo) Chair/Iov-qt-Srinx Xfer(QC): 3 (Pablo) Toilet Transfer (QC): 3 (Pablo) Car Transfer (QC): 3 (mod A) Does the Patient Walk: No and Walking Goal NOT indicated Walk 10 feet (QC): 88 Walk 50ft with 2 Turns (QC): 88 Walk 150 ft (QC): 88 Walking 10ft on Uneven Surface: 88 1 Step (curb) (QC): 88 4 Steps (QC): 88 12 Steps (QC): 88 Picking up an Object (QC): 88 Does the Pt use WC or Scooter?: Yes Wheel 50 feet with 2 turns (QC: 3 (Pablo) Type: Manual Wheel 150 feet: 3 (Pablo) Type: Manual PT Plan Problem List Problem List: Activity Tolerance, Functional Strength, Safety, Balance, Gait, Transfer, Bed Mobility, ROM Treatment/Plan Treatment Plan: Continue Plan of Care Treatment Plan: Bed Mobility, Education, Functional Activity [place], Functional Strength, Group Therapy, Gait, Safety, Therapeutic Exercise, Transfers Treatment Duration: Apr 18, 2020 Frequency: At least 5 of 7 days/Wk (IRF) Estimated Hrs Per Day: 1.5 hours per day Patient and/or Family Agrees t: Yes Safety Risks/Education Patient Education: Transfer Techniques, Correct Positioning, Safety Issues Teaching Recipient: Patient Teaching Methods: Demonstration, Discussion Response to Teaching: Reinforcement Needed Time/GCodes Time In: 1415 Time Out: 1445 Total Billed Treatment Time: 30 Total Billed Treatment 1 visit FA 10' EX 20' MARK RYAN PT Apr 30, 2020 14:42
--- NOTE | 2020-04-30 14:52 | NUR ---
CM/SS DISCHARGE Patient will discharge tomorrow to new skilled placement with [facility] via their transport scheduled for 1000. Patient and spouse, Therapy cafe team member, assigned RN, communication board updated. Continuum of care packet prepared to accompany patient, including COVID19 Assessment re post acute facility transfer. Completed disability placard for patient vehicle, spouse will follow requirements to process with motor vehicle department of [facility]. Assisted with notary this p.m. for bar tacker sewing machine Curtis. Spouse to make followup phone call with [employer] regarding status of disability application.
--- NOTE | 2020-04-30 14:56 | Cardiology Progress Note ---
Cardiology SOAP Progress Note Subjective: No cardiac complaints. Objective: I&O/Vital Signs 04/30/20 04/30/20 05:40 09:00 Temp 36.4 Pulse 66 Resp 16 B/P (MAP) 121/74 (90) Pulse Ox 97 O2 Delivery Room Air Room Air 04/30/20 00:00 Intake Total 850 ml Output Total 700 ml Balance 150 ml Constitutional: AAO x 3, PERRL, well-developed, well-nourished Respiratory: chest is bilaterally symmetric, lungs clear to auscultation Cardiovascular: regular rate-rhythm, S1 and S2 Gastrointestional: soft, audible bowel sounds Extremities: no lower extremity edema bilateral Neurologic/Psychiatric: facial droop (left), other (left sided flaccid) Skin: No rash on exposed areas, No ulcerations on exposed areas Results/Procedures: Labs Microbiology 04/23/20 Urine Culture - Final, Complete Escherichia coli 04/10/20 MRSA Screen - Final, Complete MRSA not isolated A/P: Assessment/Dx: Hypertension, better controlled now. Cryptogenic stroke - ILR implanted on 03-26-2020 Non-occlusive carotid dz, minimal plaque seen on carotid u/s of March 25, 2020 Echocardiogram of March 26, 2020: 55-65% showed normal LV function with no wall motion abnormalities. Negative bubble study ruled out significant intracardiac shunting (+) COVID antibody on testing of March 25, 2020 Plan: BP control Monitor labs from time to time Thank you for your consultation. Please call me if you have any questions. Tiesha Arevalo MD, FACP, FACC, FSCAI, FHRS, CCDS Interventional Cardiology Cardiac Electrophysiology Vascular Medicine and Endovascular Interventions Shaggy AREVALO MD Apr 30, 2020 14:56
[2020-04-30 16:33] VITALS: BP 109/60
[2020-04-30] MEDS: BISACODYL 10 MG SUPP (DULCOLAX) PR SCH (16:43)
[2020-04-30] MEDS: ENOXAPARIN 40 MG/0.4 ML (LOVENOX) SYR SC SCH (17:57)
--- NOTE | 2020-04-30 19:12 | NUR ---
bedside report received from NATASHA LOMAX, assume care of pt
[2020-04-30] MEDS: BACLOFEN 10 MG (LIORESAL) TAB PO SCH (20:23)
[2020-04-30] MEDS: SERTRALINE 50 MG (ZOLOFT) TABLET PO SCH (20:24)
--- NOTE | 2020-04-30 20:25 | NUR ---
pt took all meds without difficulty, one at a time, bladder scan showed 323, will recheck later
--- NOTE | 2020-05-01 09:30 | NUR ---
CM/SS DISCHARGE Patient discharged as planned to [facility] for [facility] skilled services. Goal remains to return to his home with spouse Carole once independent performance is maximized and the home environment is prepared for his care needs. CARE Assessment completed at the request of [facility] even though [facility] continues those in a suspended status due to COVID19. Faxed to their office which is not staffed, fax confirmation received. Provided disabled placard to Carole. Continuum of care packet prepared to accompany patient, including CARE and COVID19 transfer document. Unit RN aware of all plans. RN did connect with Dr. Jack Palm about accepting patient as a PCP, appointment made and provided to patient/spouse. All discharge activities complete.
--- NOTE | 2020-05-02 08:33 | Discharge Summary ---
Diagnosis/Chief Complaint Date of Admission Mar 28, 2020 at 09:40 Date of Discharge Discharge Date: May 01, 2020 Discharge Diagnosis Assessment: Catastrophic CVA with left sided flaccidity Left facial droop COVID-19 antibody + Bipolar disorder Autism spectrum Urinary retention Preston cath in place consulted Dr Drake Plan: IRF protocol Dr Drake consultation Monitor bowel function Fall risk CBD oil Mehnaz lift Voiding much better on his own Maintain bladder meds Bowel regimen Decreasing pain medication 04/01/20: Voltaren gel for back pain Lortab for pain Mehnaz lift completely no sit-2-stand ability Flaccid left side continues 04/02/20: Patient went to [facility] today Continue Voltaren gel for back pain Sit to stand no longer an option needs Mehnaz lift 04/03/20: Bowels moved 2 days ago Laxatives ordered Discontinue the Preston catheter and Dr. Matias will monitor closely for retention Completed Augmentin Baclofen and pain medication taken on a real regular basis prone for dependency and addiction potential 04/04/20: Urology management of urinary retention since catheter removed Continue pain management but addiction potential noted Air mattress to prevent skin breakdown Laxatives due to constipation now 04/05/20: Bowels still not moving, supp and Fleets and SSE will be given Decrease pain meds to Q6hrs due to overuse and narcotic bowel noted complications Addiction potential noted Preston cath replaced and Flomax and Urecholine maintained now 04/06/20: Weaned Lortab Baclofen prn is working well BM regimen to continue Preston cath 04/07/20: Baclofen 10mg at night Maintain BM regimen Likely preston cath will be required again 04/08/20: Preston reinserted Labs stable BM regimen 04/09/20: Improvement in spontaneous urination Maintain Flomax and Urecholine Monitor closely 04/10/20: Disposition pending Continue aggressive therapy Cystoscopy Bladder meds 04/11/20: Had Cysto today by Urology Urinalysis is pending Pain pill on rare occasions 04/12/20: Maintain Baclofen Dr. Drake to manage Ecoli UTI Maintain Mehnaz lift In/Out catheter prn 04/13/20: UTI Tx Bactrim Monitor closely 04/14/20: UTI Tx Check labs in am 04/15/20: Tucks helping with Hemorrhoids Labs reviewed Baclofen working well Last pain pill was 4 days ago 04/17/20: Laxatives Bladder management Family education 04/18/20: Monitor nausea and vomiting Needs suppository or enema today Monitor closely 04/19/20: Monitor nausea and vomiting Laxatives will be ordered on a more scheduled basis Monitor closely 04/20/2020: Continue bowel regimen Monitor for urinary retention Aggressive therapy 04/21/20: Monitor dysuria Monitor labs BM regimen 04/22/20: Catheter as needed for retention Labs reviewed all normal Continue aggressive treatment 04/23/20: UTI diagnosed by urology Bactrim was started again Vomiting and nauseated Will give suppository for constipation today Lidocaine patch for his back per 's request 04/24/20: Continue aggressive bowel regimen Follow up on urine culture Scopolamine patch as needed 04/25/20: Bowel regimen to prevent constipation UTI is resistant to Bactrim will change that 04/26/20: Dramatic improvement in his ability to stand UTI treatment with Macrobid Will do a rectal suppository every other day if he hasn't had a bowel movement on his own 04/27/20: NH placement [place] [facility] Monitor pain BM regimen 04/28/20: NH Wednesday Cath in/out parn Monitor BP 04/29/20: Inquire with urology regarding catheter scheduled Pet pass approved Continue suppository every 48 hours 04/30/20: Straight cath as needed Discharge pending depending on [place] [facility] approval by insurance Walked on parallel bars with assist (1) Acute right MCA stroke Status: Acute (2) Facial droop due to cerebrovascular accident (CVA) (3) Bipolar disorder (4) Autism spectrum (5) Urinary retention (6) Preston catheter in place (7) Coronavirus infection, unspecified Status: Chronic (8) Left-sided neglect Status: Acute (9) Dysphasia due to recent cerebrovascular accident (CVA) Status: Acute Discharge Summary Discharge Physical Examination Allergies: Coded Allergies: No Known Drug Allergies (Unverified , 03/24/20) Vitals & I&Os Vital Signs Date Time Temp Pulse Resp B/P (MAP) Pulse Ox O2 Delivery O2 Flow Rate FiO2 04/30/20 20:30 Room Air 04/30/20 16:33 36.2 64 16 109/60 (76) 97 General Appearance: Alert, Oriented X3, Cooperative Respiratory: Clear to Auscultation Cardiovascular: Regular Rate Psych/Mental Status: Mental Status NL Hospital Course Was the Problem List Reviewed?: Yes Hospital course: Patient had a 36-day hospital course in rehab after sustaining a catastrophic stroke likely COVID related. His who is a nurse that she took a manner was involved in the COVID pandemic was positive and he was presumably positive then suffered a stroke 1 week after. He participated in all therapies although slow progress he did make progress. Patient required mostly a Mehnaz lift until the last 2-1/2 weeks of hospital course he was able to navigate with 1 assist and a belt. Bowels returned back to normal after suppository given every 48 hours and multiple laxatives maintained. Urinary retention continued to be a problem which appeared to have some urinary retention due to BPH prior to the stroke requiring urology consultation with Flomax twice daily and Urecholine but he did require in and out caths and he did have 2 UTIs while he was hospitalized. Labs remained stable vitals remained stable did not have any decompensation during the entire hospital course. Pain was well controlled with baclofen. Overall he improved enough to continue his recovery in a skilled facility and will be monitored closely in the meantime. Labs (last 24 hrs) Laboratory Tests 03/28/20 09:40: Lab Scanned Report Referred Lab Report 03/29/20 05:29: White Blood Count 8.6, Red Blood Count 4.24L, Hemoglobin 12.4L, Hematocrit 38L, Mean Corpuscular Volume 90, Mean Corpuscular Hemoglobin 29, Mean Corpuscular Hemoglobin Concent 33, Red Cell Distribution Width 12.9, Platelet Count 276, Mean Platelet Volume 10.6H, Neutrophils (%) (Auto) 75, Lymphocytes (%) (Auto) 18, Monocytes (%) (Auto) 5, Eosinophils (%) (Auto) 2, Basophils (%) (Auto) 0, Neutrophils # (Auto) 6.5, Lymphocytes # (Auto) 1.5, Monocytes # (Auto) 0.4, Eosinophils # (Auto) 0.2, Basophils # (Auto) 0.0, Sodium Level 140, Potassium Level 4.1, Chloride Level 106, Carbon Dioxide Level 23, Anion Gap 11, Blood Urea Nitrogen 24H, Creatinine 0.74, Estimat Glomerular Filtration Rate > 60, BUN/Creatinine Ratio 32, Glucose Level 112H, Calcium Level 9.1, Corrected Calcium 9.4, Total Bilirubin 0.7, Aspartate Amino Transf (AST/SGOT) 23, Alanine Aminotransferase (ALT/SGPT) 36, Alkaline Phosphatase 60, Total Protein 6.8, Albumin 3.6 04/01/20 05:05: White Blood Count 11.2H, Red Blood Count 4.46, Hemoglobin 13.0L, Hematocrit 40, Mean Corpuscular Volume 90, Mean Corpuscular Hemoglobin 29, Mean Corpuscular Hemoglobin Concent 33, Red Cell Distribution Width 12.7, Platelet Count 232, Mean Platelet Volume 11.2H, Neutrophils (%) (Auto) 77H, Lymphocytes (%) (Auto) 15, Monocytes (%) (Auto) 6, Eosinophils (%) (Auto) 2, Basophils (%) (Auto) 0, Neutrophils # (Auto) 8.7H, Lymphocytes # (Auto) 1.6, Monocytes # (Auto) 0.7, Eosinophils # (Auto) 0.2, Basophils # (Auto) 0.0, Sodium Level 139, Potassium Level 4.2, Chloride Level 103, Carbon Dioxide Level 24, Anion Gap 12, Blood Urea Nitrogen 23H, Creatinine 0.69, Estimat Glomerular Filtration Rate > 60, BUN/Creatinine Ratio 33, Glucose Level 126H, Calcium Level 9.1, Corrected Calcium 9.3, Total Bilirubin 0.6, Aspartate Amino Transf (AST/SGOT) 55H, Alanine Aminotransferase (ALT/SGPT) 60H, Alkaline Phosphatase 67, Total Protein 7.2, Albumin 3.7, Neutrophils % (Manual) 78, Lymphocytes % (Manual) 13, Monocytes % (Manual) 5, Eosinophils % (Manual) 3, Metamyelocytes % 1, Hypochromasia SLIGHT 04/08/20 04:13: White Blood Count 12.3H, Red Blood Count 4.37, Hemoglobin 12.7L, Hematocrit 39L, Mean Corpuscular Volume 88, Mean Corpuscular Hemoglobin 29, Mean Corpuscular Hemoglobin Concent 33, Red Cell Distribution Width 13.0, Platelet Count 288, Mean Platelet Volume 10.9H, Neutrophils (%) (Auto) 72, Lymphocytes (%) (Auto) 19, Monocytes (%) (Auto) 6, Eosinophils (%) (Auto) 3, Basophils (%) (Auto) 0, Neutrophils # (Auto) 8.9H, Lymphocytes # (Auto) 2.4, Monocytes # (Auto) 0.7, Eosinophils # (Auto) 0.3, Basophils # (Auto) 0.0, Sodium Level 136, Potassium Level 4.0, Chloride Level 102, Carbon Dioxide Level 22, Anion Gap 12, Blood Urea Nitrogen 20H, Creatinine 0.72, Estimat Glomerular Filtration Rate > 60, BUN/Creatinine Ratio 28, Glucose Level 108H, Calcium Level 9.1, Corrected Calcium 9.3, Total Bilirubin 0.5, Aspartate Amino Transf (AST/SGOT) 39H, Alanine Aminotransferase (ALT/SGPT) 37, Alkaline Phosphatase 64, Total Protein 6.9, Albumin 3.7 04/09/20 19:03: Urine Color YELLOW, Urine Clarity CLOUDY, Urine pH 6.0, Urine Specific [place] 1.020, Urine Protein NEGATIVE, Urine Glucose (UA) NEGATIVE, Urine Ketones NEGATIVE, Urine Nitrite POSITIVEH, Urine Bilirubin NEGATIVE, Urine Urobilinogen >=8.0, Urine Leukocyte Esterase TRACEH, Urine RBC (Auto) NEGATIVE, Urine RBC NONE, Urine WBC 25-50H, Urine Crystals NONE, Urine Bacteria LARGEH, Urine Casts NONE, Urine Mucus NEGATIVE, Urine Culture Indicated YES 04/10/20 14:40: Prostate Specific Antigen 5.68H 04/15/20 05:10: White Blood Count 7.6, Red Blood Count 4.05L, Hemoglobin 11.7L, Hematocrit 37L, Mean Corpuscular Volume 90, Mean Corpuscular Hemoglobin 29, Mean Corpuscular Hemoglobin Concent 32, Red Cell Distribution Width 13.4, Platelet Count 287, Mean Platelet Volume 11.2H, Neutrophils (%) (Auto) 67, Lymphocytes (%) (Auto) 24, Monocytes (%) (Auto) 6, Eosinophils (%) (Auto) 4, Basophils (%) (Auto) 0, Neutrophils # (Auto) 5.1, Lymphocytes # (Auto) 1.8, Monocytes # (Auto) 0.4, Eosinophils # (Auto) 0.3, Basophils # (Auto) 0.0, Sodium Level 140, Potassium Level 4.0, Chloride Level 108H, Carbon Dioxide Level 21, Anion Gap 11, Blood Urea Nitrogen 23H, Creatinine 0.78, Estimat Glomerular Filtration Rate > 60, BUN/Creatinine Ratio 29, Glucose Level 112H, Calcium Level 9.0, Corrected Calcium 9.2, Total Bilirubin 0.4, Aspartate Amino Transf (AST/SGOT) 29, Alanine Aminotransferase (ALT/SGPT) 42, Alkaline Phosphatase 68, Total Protein 6.6, Albumin 3.7 04/19/20 05:58: White Blood Count 6.8, Red Blood Count 4.40, Hemoglobin 12.8L, Hematocrit 40, Mean Corpuscular Volume 91, Mean Corpuscular Hemoglobin 29, Mean Corpuscular Hemoglobin Concent 32, Red Cell Distribution Width 13.8, Platelet Count 365, Mean Platelet Volume 10.8H, Neutrophils (%) (Auto) 72, Lymphocytes (%) (Auto) 23, Monocytes (%) (Auto) 5, Eosinophils (%) (Auto) 0, Basophils (%) (Auto) 0, Neutrophils # (Auto) 4.9, Lymphocytes # (Auto) 1.6, Monocytes # (Auto) 0.3, Eosinophils # (Auto) 0.0, Basophils # (Auto) 0.0, Sodium Level 142, Potassium Level 4.0, Chloride Level 106, Carbon Dioxide Level 25, Anion Gap 11, Blood Urea Nitrogen 26H, Creatinine 0.75, Estimat Glomerular Filtration Rate > 60, BUN/Creatinine Ratio 35, Glucose Level 117H, Calcium Level 9.5, Corrected Calcium 9.4, Total Bilirubin 0.4, Aspartate Amino Transf (AST/SGOT) 20, Alanine Aminotransferase (ALT/SGPT) 28, Alkaline Phosphatase 75, Total Protein 7.0, Albumin 4.1, Lipase 16 04/22/20 05:10: White Blood Count 6.1, Red Blood Count 4.07L, Hemoglobin 12.0L, Hematocrit 37L, Mean Corpuscular Volume 90, Mean Corpuscular Hemoglobin 30, Mean Corpuscular Hemoglobin Concent 33, Red Cell Distribution Width 13.2, Platelet Count 270, Mean Platelet Volume 10.7H, Neutrophils (%) (Auto) 62, Lymphocytes (%) (Auto) 31, Monocytes (%) (Auto) 5, Eosinophils (%) (Auto) 2, Basophils (%) (Auto) 0, Neutrophils # (Auto) 3.8, Lymphocytes # (Auto) 1.9, Monocytes # (Auto) 0.3, Eosinophils # (Auto) 0.1, Basophils # (Auto) 0.0, Sodium Level 140, Potassium Level 4.1, Chloride Level 106, Carbon Dioxide Level 25, Anion Gap 9, Blood Urea Nitrogen 22H, Creatinine 0.75, Estimat Glomerular Filtration Rate > 60, BUN/Creatinine Ratio 29, Glucose Level 101, Calcium Level 9.2, Corrected Calcium 9.3, Total Bilirubin 0.5, Aspartate Amino Transf (AST/SGOT) 19, Alanine Aminotransferase (ALT/SGPT) 25, Alkaline Phosphatase 67, Total Protein 6.9, Albumin 3.9 04/23/20 07:31: Urine Color YELLOW, Urine Clarity CLEAR, Urine pH 6.0, Urine Specific [place] 1.015L, Urine Protein NEGATIVE, Urine Glucose (UA) NEGATIVE, Urine Ketones NEGATIVE, Urine Nitrite POSITIVEH, Urine Bilirubin NEGATIVE, Urine Urobilinogen 1.0, Urine Leukocyte Esterase 1+H, Urine RBC (Auto) NEGATIVE, Urine RBC NONE, Urine WBC 10-25H, Urine Squamous Epithelial Cells RARE, Urine Crystals NONE, Urine Bacteria LARGEH, Urine Casts NONE, Urine Mucus NEGATIVE, Urine Culture Indicated YES 04/24/20 06:20: White Blood Count 7.1, Red Blood Count 4.22L, Hemoglobin 12.4L, Hematocrit 38L, Mean Corpuscular Volume 90, Mean Corpuscular Hemoglobin 29, Mean Corpuscular Hemoglobin Concent 33, Red Cell Distribution Width 13.7, Platelet Count 247, Mean Platelet Volume 11.5H, Neutrophils (%) (Auto) 65, Lymphocytes (%) (Auto) 28, Monocytes (%) (Auto) 6, Eosinophils (%) (Auto) 1, Basophils (%) (Auto) 0, Neutrophils # (Auto) 4.6, Lymphocytes # (Auto) 2.0, Monocytes # (Auto) 0.4, Eosinophils # (Auto) 0.1, Basophils # (Auto) 0.0, Sodium Level 141, Potassium Level 3.3L, Chloride Level 105, Carbon Dioxide Level 24, Anion Gap 12, Blood Urea Nitrogen 19H, Creatinine 0.85, Estimat Glomerular Filtration Rate > 60, BUN/Creatinine Ratio 22, Glucose Level 117H, Calcium Level 9.2, Corrected Calcium 9.2, Total Bilirubin 0.4, Aspartate Amino Transf (AST/SGOT) 18, Alanine Aminotransferase (ALT/SGPT) 21, Alkaline Phosphatase 65, Total Protein 7.1, A lbumin 4.0, Lactic Acid Level 1.50, Procalcitonin 0.06 04/29/20 04:55: White Blood Count 5.7, Red Blood Count 3.94L, Hemoglobin 11.5L, Hematocrit 36L, Mean Corpuscular Volume 90, Mean Corpuscular Hemoglobin 29, Mean Corpuscular Hemoglobin Concent 32, Red Cell Distribution Width 13.2, Platelet Count 224, Mean Platelet Volume 11.6H, Neutrophils (%) (Auto) 56, Lymphocytes (%) (Auto) 38, Monocytes (%) (Auto) 4, Eosinophils (%) (Auto) 2, Basophils (%) (Auto) 0, Neutrophils # (Auto) 3.2, Lymphocytes # (Auto) 2.2, Monocytes # (Auto) 0.3, Eosinophils # (Auto) 0.1, Basophils # (Auto) 0.0, Sodium Level 142, Potassium Level 4.0, Chloride Level 108H, Carbon Dioxide Level 27, Anion Gap 7, Blood Urea Nitrogen 18, Creatinine 0.70, Estimat Glomerular Filtration Rate > 60, BUN /Creatinine Ratio 26, Glucose Level 100, Calcium Level 9.2, Corrected Calcium 9.5, Total Bilirubin 0.4, Aspartate Amino Transf (AST/SGOT) 15, Alanine Aminotransferase (ALT/SGPT) 18, Alkaline Phosphatase 60, Total Protein 6.2L, Albumin 3.6 Microbiology 04/23/20 Urine Culture - Final, Complete Escherichia coli 04/10/20 MRSA Screen - Final, Complete MRSA not isolated Pending Labs Microbiology Date/Time Source Procedure Growth Status 04/23/20 07:31 Urine Straight Cath, In/Out Urine Culture - Final Escherichia coli Complete 04/10/20 14:35 Nasal MRSA Screen - Final MRSA not isolated Complete 04/09/20 19:03 Urine Straight Cath, In/Out Urine Culture - Final Escherichia coli Complete Laboratory Tests 03/28/20 09:40: Lab Scanned Report Referred Lab Report 03/29/20 05:29: White Blood Count 8.6, Red Blood Count 4.24, Hemoglobin 12.4, Hematocrit 38, Mean Corpuscular Volume 90, Mean Corpuscular Hemoglobin 29, Mean Corpuscular Hemoglobin Concent 33, Red Cell Distribution Width 12.9, Platelet Count 276, Mean Platelet Volume 10.6, Neutrophils (%) (Auto) 75, Lymphocytes (%) (Auto) 18, Monocytes (%) (Auto) 5, Eosinophils (%) (Auto) 2, Basophils (%) (Auto) 0, Neutrophils # (Auto) 6.5, Lymphocytes # (Auto) 1.5, Monocytes # (Auto) 0.4, Eosinophils # (Auto) 0.2, Basophils # (Auto) 0.0, Sodium Level 140, Potassium Level 4.1, Chloride Level 106, Carbon Dioxide Level 23, Anion Gap 11, Blood Urea Nitrogen 24, Creatinine 0.74, Estimat Glomerular Filtration Rate > 60, BUN/Creatinine Ratio 32, Glucose Level 112, Calcium Level 9.1, Corrected Calcium 9.4, Total Bilirubin 0.7, Aspartate Amino Transf (AST/SGOT) 23, Alanine Aminotransferase (ALT/SGPT) 36, Alkaline Phosphatase 60, Total Protein 6.8, Albumin 3.6 04/01/20 05:05: White Blood Count 11.2, Red Blood Count 4.46, Hemoglobin 13.0, Hematocrit 40, Mean Corpuscular Volume 90, Mean Corpuscular Hemoglobin 29, Mean Corpuscular Hemoglobin Concent 33, Red Cell Distribution Width 12.7, Platelet Count 232, Mean Platelet Volume 11.2, Neutrophils (%) (Auto) 77, Lymphocytes (%) (Auto) 15, Monocytes (%) (Auto) 6, Eosinophils (%) (Auto) 2, Basophils (%) (Auto) 0, Neutrophils # (Auto) 8.7, Lymphocytes # (Auto) 1.6, Monocytes # (Auto) 0.7, Eosinophils # (Auto) 0.2, Basophils # (Auto) 0.0, Sodium Level 139, Potassium Level 4.2, Chloride Level 103, Carbon Dioxide Level 24, Anion Gap 12, Blood Urea Nitrogen 23, Creatinine 0.69, Estimat Glomerular Filtration Rate > 60, BUN/Creatinine Ratio 33, Glucose Level 126, Calcium Level 9.1, Corrected Calcium 9.3, Total Bilirubin 0.6, Aspartate Amino Transf (AST/SGOT) 55, Alanine Aminotransferase (ALT/SGPT) 60, Alkaline Phosphatase 67, Total Protein 7.2, Albumin 3.7, Neutrophils % (Manual) 78, Lymphocytes % (Manual) 13, Monocytes % (Manual) 5, Eosinophils % (Manual) 3, Metamyelocytes % 1, Hypochromasia SLIGHT 04/08/20 04:13: White Blood Count 12.3, Red Blood Count 4.37, Hemoglobin 12.7, Hematocrit 39, Mean Corpuscular Volume 88, Mean Corpuscular Hemoglobin 29, Mean Corpuscular Hemoglobin Concent 33, Red Cell Distribution Width 13.0, Platelet Count 288, Mean Platelet Volume 10.9, Neutrophils (%) (Auto) 72, Lymphocytes (%) (Auto) 19, Monocytes (%) (Auto) 6, Eosinophils (%) (Auto) 3, Basophils (%) (Auto) 0, Neutrophils # (Auto) 8.9, Lymphocytes # (Auto) 2.4, Monocytes # (Auto) 0.7, Eosinophils # (Auto) 0.3, Basophils # (Auto) 0.0, Sodium Level 136, Potassium Level 4.0, Chloride Level 102, Carbon Dioxide Level 22, Anion Gap 12, Blood Urea Nitrogen 20, Creatinine 0.72, Estimat Glomerular Filtration Rate > 60, BUN /Creatinine Ratio 28, Glucose Level 108, Calcium Level 9.1, Corrected Calcium 9.3, Total Bilirubin 0.5, Aspartate Amino Transf (AST/SGOT) 39, Alanine Aminotransferase (ALT/SGPT) 37, Alkaline Phosphatase 64, Total Protein 6.9, Albumin 3.7 04/09/20 19:03: Urine Color YELLOW, Urine Clarity CLOUDY, Urine pH 6.0, Urine Specific [place] 1.020, Urine Protein NEGATIVE, Urine Glucose (UA) NEGATIVE, Urine Ketones NEGATIVE, Urine Nitrite POSITIVE, Urine Bilirubin NEGATIVE, Urine Urobilinogen >=8.0, Urine Leukocyte Esterase TRACE, Urine RBC (Auto) NEGATIVE, Urine RBC NONE, Urine WBC 25-50, Urine Crystals NONE, Urine Bacteria LARGE, Urine Casts NONE, Urine Mucus NEGATIVE, Urine Culture Indicated YES 04/10/20 14:40: Prostate Specific Antigen 5.68 04/15/20 05:10: White Blood Count 7.6, Red Blood Count 4.05, Hemoglobin 11.7, Hematocrit 37, Mean Corpuscular Volume 90, Mean Corpuscular Hemoglobin 29, Mean Corpuscular Hemoglobin Concent 32, Red Cell Distribution Width 13.4, Platelet Count 287, Mean Platelet Volume 11.2, Neutrophils (%) (Auto) 67, Lymphocytes (%) (Auto) 24, Monocytes (%) (Auto) 6, Eosinophils (%) (Auto) 4, Basophils (%) (Auto) 0, Neutrophils # (Auto) 5.1, Lymphocytes # (Auto) 1.8, Monocytes # (Auto) 0.4, Eosinophils # (Auto) 0.3, Basophils # (Auto) 0.0, Sodium Level 140, Potassium Level 4.0, Chloride Level 108, Carbon Dioxide Level 21, Anion Gap 11, Blood Urea Nitrogen 23, Creatinine 0.78, Estimat Glomerular Filtration Rate > 60, BUN/Creatinine Ratio 29, Glucose Level 112, Calcium Level 9.0, Corrected Calcium 9.2, Total Bilirubin 0.4, Aspartate Amino Transf (AST/SGOT) 29, Alanine Aminotransferase (ALT/SGPT) 42, Alkaline Phosphatase 68, Total Protein 6.6, Albumin 3.7 04/19/20 05:58: White Blood Count 6.8, Red Blood Count 4.40, Hemoglobin 12.8, Hematocrit 40, Mean Corpuscular Volume 91, Mean Corpuscular Hemoglobin 29, Mean Corpuscular Hemoglobin Concent 32, Red Cell Distribution Width 13.8, Platelet Count 365, Mean Platelet Volume 10.8, Neutrophils (%) (Auto) 72, Lymphocytes (%) (Auto) 23, Monocytes (%) (Auto) 5, Eosinophils (%) (Auto) 0, Basophils (%) (Auto) 0, N eutrophils # (Auto) 4.9, Lymphocytes # (Auto) 1.6, Monocytes # (Auto) 0.3, Eosinophils # (Auto) 0.0, Basophils # (Auto) 0.0, Sodium Level 142, Potassium Level 4.0, Chloride Level 106, Carbon Dioxide Level 25, Anion Gap 11, Blood Urea Nitrogen 26, Creatinine 0.75, Estimat Glomerular Filtration Rate > 60, BUN/Creatinine Ratio 35, Glucose Level 117, Calcium Level 9.5, Corrected Calcium 9.4, Total Bilirubin 0.4, Aspartate Amino Transf (AST/SGOT) 20, Alanine Aminotransferase (ALT/SGPT) 28, Alkaline Phosphatase 75, Total Protein 7.0, Albumin 4.1, Lipase 16 04/22/20 05:10: White Blood Count 6.1, Red Blood Count 4.07, Hemoglobin 12.0, Hematocrit 37, Mean Corpuscular Volume 90, Mean Corpuscular Hemoglobin 30, Mean Corpuscular Hemoglobin Concent 33, Red Cell Distribution Width 13.2, Platelet Count 270, Mean Platelet Volume 10.7, Neutrophils (%) (Auto) 62, Lymphocytes (%) (Auto) 31, Monocytes (%) (Auto) 5, Eosinophils (%) (Auto) 2, Basophils (%) (Auto) 0, Neutrophils # (Auto) 3.8, Lymphocytes # (Auto) 1.9, Monocytes # (Auto) 0.3, Eosinophils # (Auto) 0.1, Basophils # (Auto) 0.0, Sodium Level 140, Potassium Level 4.1, Chloride Level 106, Carbon Dioxide Level 25, Anion Gap 9, Blood Urea Nitrogen 22, Creatinine 0.75, Estimat Glomerular Filtration Rate > 60, BUN/Creatinine Ratio 29, Glucose Level 101, Calcium Level 9.2, Corrected Calcium 9.3, Total Bilirubin 0.5, Aspartate Amino Transf (AST/SGOT) 19, Alanine Aminotransferase (ALT/SGPT) 25, Alkaline Phosphatase 67, Total Protein 6.9, Albumin 3.9 04/23/20 07:31: Urine Color YELLOW, Urine Clarity CLEAR, Urine pH 6.0, Urine Specific [place] 1.015, Urine Protein NEGATIVE, Urine Glucose (UA) NEGATIVE, Urine Ketones NEGATIVE, Urine Nitrite POSITIVE, Urine Bilirubin NEGATIVE, Urine Urobilinogen 1.0, Urine Leukocyte Esterase 1+, Urine RBC (Auto) NEGATIVE, Urine RBC NONE, Urine WBC 10-25, Urine Squamous Epithelial Cells RARE, Urine Crystals NONE, Urine Bacteria LARGE, Urine Casts NONE, Urine Mucus NEGATIVE, Urine Culture Indicated YES 04/24/20 06:20: White Blood Count 7.1, Red Blood Count 4.22, Hemoglobin 12.4, Hematocrit 38, Mean Corpuscular Volume 90, Mean Corpuscular Hemoglobin 29, Mean Corpuscular Hemoglobin Concent 33, Red Cell Distribution Width 13.7, Platelet Count 247, Mean Platelet Volume 11.5, Neutrophils (%) (Auto) 65, Lymphocytes (%) (Auto) 28, Monocytes (%) (Auto) 6, Eosinophils (%) (Auto) 1, Basophils (%) (Auto) 0, Neutrophils # (Auto) 4.6, Lymphocytes # (Auto) 2.0, Monocytes # (Auto) 0.4, Eosinophils # (Auto) 0.1, Basophils # (Auto) 0.0, Sodium Level 141, Potassium Level 3.3, Chloride Level 105, Carbon Dioxide Level 24, Anion Gap 12, Blood Urea Nitrogen 19, Creatinine 0.85, Estimat Glomerular Filtration Rate > 60, BUN/Creatinine Ratio 22, Glucose Level 117, Calcium Level 9.2, Corrected Calcium 9.2, Total Bilirubin 0.4, Aspartate Amino Transf (AST/SGOT) 18, Alanine Aminotransferase (ALT/SGPT) 21, Alkaline Phosphatase 65, Total Protein 7.1, Albumin 4.0, Lactic Acid Level 1.50, Procalcitonin 0.06 04/29/20 04:55: White Blood Count 5.7, Red Blood Count 3.94, Hemoglobin 11.5, Hematocrit 36, Mean Corpuscular Volume 90, Mean Corpuscular Hemoglobin 29, Mean Corpuscular Hemoglobin Concent 32, Red Cell Distribution Width 13.2, Platelet Count 224, Mean Platelet Volume 11.6, Neutrophils (%) (Auto) 56, Lymphocytes (%) (Auto) 38, Monocytes (%) (Auto) 4, Eosinophils (%) (Auto) 2, Basophils (%) (Auto) 0, Neutrophils # (Auto) 3.2, Lymphocytes # (Auto) 2.2, Monocytes # (Auto) 0.3, Eosinophils # (Auto) 0.1, Basophils # (Auto) 0.0, Sodium Level 142, Potassium Level 4.0, Chloride Level 108, Carbon Dioxide Level 27, Anion Gap 7, Blood Urea Nitrogen 18, Creatinine 0.70, Estimat Glomerular Filtration Rate > 60, BUN/Creatinine Ratio 26, Glucose Level 100, Calcium Level 9.2, Corrected Calcium 9.5, Total Bilirubin 0.4, Aspartate Amino Transf (AST/SGOT) 15, Alanine Aminotransferase (ALT/SGPT) 18, Alkaline Phosphatase 60, Total Protein 6.2, Albumin 3.6 Discharge Home Medications: Active Scripts Active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
--- NOTE | 2020-05-02 10:35 | Therapy Team Discharge Summary ---
Therapy Discharge Summary Discharge Recommendations Date of Discharge May 01, 2020 at 11:25 Occupational Therapy Decreased Activ Tolerance, Decreased Safety Aware, Decreased UE Strength, Dep endent Transfers, Impaired Bed Mobility, Impaired Cognition, Impaired Coordination, Impaired Funct Balance, Impaired I ADL's, Impaired Self-Care Skills, Restricted Funct UE ROM, Visual-Perceptual Deficit Speech-Language Pathology Patient was admitted to the ARU s/p CVA. Patient was seen by ST for cognitive, aphasia and dysphagia. Patient progressed well and met all of his ST goals. Patient discharged on 05/01/2020 to SNF prior to returning home. PT Auto Rental Supervisor Goals Fdc Goals PT Fdc Goals Time Frame: Apr 18, 2020 Roll Left to Right (QC): 3 (Pablo) Sit to Lying (QC): 3 (Pablo) Lying-Sitting on Side/Bed(QC): 3 (Pablo) Sit to Stand (QC): 3 (Pablo) Chair/Ufj-vk-Itfve Xfer(QC): 3 (Pablo) Car Transfer (QC): 3 (mod A) Does the Patient Walk: No and Walking Goal NOT indicated Walk 10 feet (QC): 88 Walk 10ft-Uneven Surface(QC): 88 Walk 50ft with 2 Turns (QC): 88 Walk 150 ft (QC): 88 Does the Pt use WC or Scooter?: Yes Wheel 50 feet with 2 turns (QC: 3 (Pablo) 1 Step (curb) (QC): 88 4 Steps (QC): 88 12 Steps (QC): 88 Picking up an Object (QC): 88 OT Auto Rental Supervisor Goals Fdc Goals Time Frame: Apr 25, 2020 Eating (QC): 4 (met) Oral Hygiene (QC): 4 (continue) Shower/Bathe Self (QC): 3 (new goal- Min assist) Upper Body Dressing (QC): 4 (continue) Lower Body Dressing (QC): 4 (continue) On/Off Footwear (QC): 4 (continue) Toileting Hygiene (QC): 3 (continue) Toilet/Commode Transfer (QC): 3 (Pablo) Additional Goals: 1-Demonstrate ADL Tasks, 2-Verbalize Understanding, 3-ImproveStrength/[place] 1=Demonstrate adherence to instructed precautions during ADL tasks. 2=Patient will verbalize/demonstrate understanding of assistive devices/modifications for ADL. 3=Patient will improve strength/tolerance for activity to enable patient to perform ADL's. Speech Fdc Goals Auto Rental Supervisor Goals Patient will improve cognitive-communication necessary for safety and daily living tasks with minimal assist. Patient will maintain adequate nutrition/hydration via safe effective swallow function. BRIAN DILL May 02, 2020 10:35
--- NOTE | 2020-05-02 12:48 | Therapy Team Discharge Summary ---
Therapy Discharge Summary Discharge Recommendations Date of Discharge May 01, 2020 at 11:25 Physical Therapy Patient came to rehab following a CVA. Upon evaluation patient performed bed mobility with max assist, supine <-> sit with dependence, dependent for sit <-> stand and transfers, dependent for car transfer, propelled a manual WC 150' with max assist. Patient has been performing bed mobility and transfer training, balance and endurance training, functional strengthening, gait training, and education. Patient has made some progress but has only met his terminologist goals for bed mobility and supine <-> sit. Now, patient performs bed mobility with SBA, supine <-> sit min assist, sit <-> stand min assist, transfers with mod assist, car transfer max assist, ambulates 6' in the parallel bars with max assist, and can propel a manual WC 150' with SBA. Patient discharged from this facility yesterday and will be discharged from PT at this time. Occupational Therapy Decreased Activ Tolerance, Decreased Safety Aware, Decreased UE Strength, Dependent Transfers, Impaired Bed Mobility, Impaired Cognition, Impaired Coordination, Impaired Funct Balance, Impaired I ADL's, Impaired Self-Care Skills, Restricted Funct UE ROM, Visual-Perceptual Deficit PT Usp Goals Usp Goals PT Screening Representative Goals Time Frame: Apr 18, 2020 Roll Left to Right (QC): 3 (Pablo) Sit to Lying (QC): 3 (Pablo) Lying-Sitting on Side/Bed(QC): 3 (Pablo) Sit to Stand (QC): 3 (Pablo) Chair/Wze-qi-Dawts Xfer(QC): 3 (Pablo) Car Transfer (QC): 3 (mod A) Does the Patient Walk: No and Walking Goal NOT indicated Walk 10 feet (QC): 88 Walk 10ft-Uneven Surface(QC): 88 Walk 50ft with 2 Turns (QC): 88 Walk 150 ft (QC): 88 Does the Pt use WC or Scooter?: Yes Wheel 50 feet with 2 turns (QC: 3 (Pablo) 1 Step (curb) (QC): 88 4 Steps (QC): 88 12 Steps (QC): 88 Picking up an Object (QC): 88 OT Usp Goals Usp Goals Time Frame: Apr 25, 2020 Eating (QC): 4 (met) Oral Hygiene (QC): 4 (continue) Shower/Bathe Self (QC): 3 (new goal- Min assist) Upper Body Dressing (QC): 4 (continue) Lower Body Dressing (QC): 4 (continue) On/Off Footwear (QC): 4 (continue) Toileting Hygiene (QC): 3 (continue) Toilet/Commode Transfer (QC): 3 (Pablo) Additional Goals: 1-Demonstrate ADL Tasks, 2-Verbalize Understanding, 3- ImproveStrength/[place] 1=Demonstrate adherence to instructed precautions during ADL tasks. 2=Patient will verbalize/demonstrate understanding of assistive devices /modifications for ADL. 3=Patient will improve strength/tolerance for activity to enable patient to perform ADL's. Speech Screening Representative Goals Usp Goals Patient will improve cognitive-communication necessary for safety and daily living tasks with minimal assist. Patient will maintain adequate nutrition/hydration via safe effective swallow function. MARK RYAN PT May 02, 2020 12:48
== END 2020-05-01 11:25 | DRG 57 ==
PROVIDERS: ADMIT Internal Medicine; ATTEND Internal Medicine
DX: I69.354 Hemiplegia and hemiparesis following cerebral infarction affecting left non-dominant side (principal); T83.511A Infection and inflammatory reaction due to indwelling urethral catheter, initial encounter; N39.0 Urinary tract infection, site not specified; F84.0 Autistic disorder; R41.4 Neurologic neglect syndrome; I69.392 Facial weakness following cerebral infarction; I69.321 Dysphasia following cerebral infarction; I69.398 Other sequelae of cerebral infarction; I10 Essential (primary) hypertension; N40.1 Benign prostatic hyperplasia with lower urinary tract symptoms; R33.8 Other retention of urine; R35.1 Nocturia; R39.12 Poor urinary stream; R39.14 Feeling of incomplete bladder emptying; K59.00 Constipation, unspecified; N31.9 Neuromuscular dysfunction of bladder, unspecified; F17.210 Nicotine dependence, cigarettes, uncomplicated; M54.9 Dorsalgia, unspecified; F31.9 Bipolar disorder, unspecified; F41.9 Anxiety disorder, unspecified; B96.20 Unspecified Escherichia coli [E. coli] as the cause of diseases classified elsewhere
CPT/HCPCS: 36415; 80053; 81000; 83605; 83690; 84145; 84153; 85007; 85025; 85027; 87077; 87081; 87088; 87186

== ENCOUNTER → 2020-04-11 | Day surgery (SDC) | payer OTHER ==
[~2020-04-11] MED LIST changes: +LIDOCAINE UROJET 2% GEL 10 ML PKG ONE; +SERT50TA9 PO
--- OUTSIDE RECORDS SUMMARY | 2020-04-11 05:45 | XMS REPORT | Continuity of Care Document ---
Demographics Preferred Language Unknown Marital Status Unknown Latter Day Affiliation Unknown Race Unknown Ethnic Group Unknown Author Organization Unknown Address Unknown Phone Unavailable Allergies Active Description Code Type Severity Reaction Onset Reported/Identified Relationship to Patient Clinical Status Yes No Known Drug Allergies [id number] Drug Allergy Unknown N/A 03/24/2020 Medications There is no data. Problems Date Dx Coded Attending Type Code Diagnosis Diagnosed By 03/27/2020 VIANCA FRANCE MD, Ot F31. 9 BIPOLAR DISORDER, UNSPECIFIED 03/27/2020 VIANCA FRANCE MD Ot F89 UNSPECIFIED DISORDER OF PSYCHOLOGICAL DE 03/27/2020 VIANCA FRANCE MD Ot G81. 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 02 DYSPHASIA 03/27/2020 VIANCA FRANCE MD Ot R47. 81 SLURRED SPEECH 03/28/2020 VIANCA FRNACE MD Ot F31. 9 BIPOLAR DISORDER, UNSPECIFIED 03/28/2020 VIANCA FRANCE MD Ot F89 UNSPECIFIED DISORDER OF PSYCHOLOGICAL DE 03/28/2020 VIANCA FRANCE MD Ot G81. 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 02 DYSPHASIA 03/28/2020 VIANCA FRANCE MD Ot R47. 81 SLURRED SPEECH 03/28/2020 VIANCA FRANCE MD Ot B96. 20 UNSP ESCHERICHIA COLI THE CAUSE OF DI 03/28/2020 VIANCA FRANCE MD, Ot F31. 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 0 PNEUMONITIS DUE TO INHALATION OF FOOD AN 03/28/2020 VIANCA FRANCE MD, Ot N39. 0 URINARY TRACT INFECTION, SITE NOT SPECIF 03/28/2020 VIANCA FRANCE MD, Ot R29.724 NIHSS SCORE 24 03/28/2020 VIANCA FRANCE MD, Ot R29.810 FACIAL WEAKNESS 03/28/2020 VIANCA FRANCE MD, Ot R41. 4 NEUROLOGIC NEGLECT SYNDROME 03/28/2020 VIANCA FRANCE MD, Ot R47. 02 DYSPHASIA 03/28/2020 VIANCA FRANCE MD, Ot R47. 81 SLURRED SPEECH 03/28/2020 VIANCA FRANCE MD, Ot U07. 1 COVID-19 Procedures Code Description Performed By Per formed On [id number] DR CAT OF STOMACH WITH DRAINAGE DEVICE 03/24/2020 [id number] IN SERT OF MONITOR DEV INTO CHEST SUBCU/F 03/26/2020 Results Test Result Range CYTOCHECK COVID-19 - 03/02/20 13:10 [id number] NOT DETECTED Not Detecte d Complete blood [...] culture - 03/24/20 13:24 Bacterial urine culture [id number] NRG COLONY COUNT >100,000/ML NRG SUSCEPTIBILITY SUSCEPTIBILITY REPROTED 03/26/20 10: 00 NRG RAPID ID PRELIM RAPID ID TEST AT [facility] 03/25 07:22 NRG ID CONFIRMATION RML CONFIRMED [...] - 03/28/20 05:40 Magnesium 2.2 mg/dL 1.6-2.4 Complete blood count (CBC) with automate d white blood cell (WBC) differential - 03/29/20 05:29 Blood leukocytes automated count (number/volume) 8.6 10*3/uL 4.3-11.0 Blood erythrocytes automated count (number/volume) 4.24 10*6/uL 4.35-5.85 Venous blood hemoglobin measurement (mass/volume) 12.4 g/dL 13.3-17.7 Blood hematocrit (volume fraction) 38 % 40-54 Automated erythrocyte mean corpuscular volume 90 [ foz_us] 80-99 Automated erythrocyte mean corpuscular h emoglobin (mass per erythrocyte) 29 pg 25-34 Automated erythrocyte mean corpuscular h emoglobin concentration measurement (mass/volume) 33 g/dL 32-36 Automated erythrocyte distribution width ratio 12. 9 % 10.0- 14.5 Automated blood platelet count (count/volume) 276 10*3/uL 130-400 Automated blood platelet mean volume measurement 10.6 [foz_us] 7.4-10.4 Automated blood neutrophils/100 leukocytes 75 % 42-75 Automated blood lymphocytes/100 leukocytes 18 % 12-44 Blood monocytes/100 leukocytes 5 % 0-12 Automated blood eosinophils/100 leukocytes 2 % 0-10 Automated blood basophils/100 leukocytes 0 % 0-10 Blood neutrophils automated count (number/volume) 6.5 10*3 1.8-7.8 Blood lymphocytes automated count (number/volume) 1.5 10*3 1.0-4.0 Blood monocytes automated count (number/volume) 0. 4 10*3 0.0-1.0 Automated eosinophil count 0.2 10*3/uL 0 .0-0.3 Automated blood basophil count (count/volume) 0.0 10*3/uL 0.0-0.1 Comprehensive metabolic panel - 03/29/20 05:29 Serum or plasma sodium measurement (moles/volume) 140 mmol/L 135-145 Serum or plasma potassium measurement (moles/volume) 4.1 mmol/L 3.6-5.0 Serum or plasma chloride measurement (moles/volume) 106 mmol/L 98-107 Carbon dioxide 23 mmol/L 21-32 Serum or plasma anion gap determination (moles/volume) 11 mmol/L 5-14 Serum or plasma urea nitrogen measurement (mass/volume ) 24 mg/dL 7-18 Serum or plasma creatinine measurement (mass/volume) 0.74 mg/dL 0.60-1.30 Serum or plasma urea nitrogen/creatinine mass ratio 32 NRG Serum or plasma creatinine measurement w ith calculation of estimated glomerular filtration rate > NRG Serum or plasma glucose measurement (mass/volume) 112 mg/dL 70-105 Serum or plasma calcium measurement (mass/volume) 9.1 mg/dL 8.5-10.1 Serum or plasma total bilirubin measurement (mass/volu me) 0.7 mg/dL 0.1-1.0 Serum or plasma alkaline phosphatase vivian surement (enzymatic activity/volume) 60 U/L 40-136 Serum or plasma aspartate aminotransfera se measurement (enzymatic activity/volume) 23 U/L 5-34 Serum or plasma alanine aminotransferase measurement (enzymatic activity/volume) 36 U/L 0-55 Serum or plasma protein measurement (mass/volume) 6.8 g/dL 6.4-8.2 Serum or plasma albumin measurement (mass/volume) 3.6 g/dL 3.2-4.5 CALCIUM CORRECTED 9.4 mg/dL 8.5-10.1 Complete blood count (CBC) with automate d white blood cell (WBC) differential - 04/01/20 05:05 Blood leukocytes automated count (number/volume) 11.2 10*3/uL 4.3-11.0 Blood erythrocytes automated count (number/volume) 4.46 10*6/uL 4.35-5.85 Venous blood hemoglobin measurement (mass/volume) 13.0 g/dL 13.3-17.7 Blood hematocrit (volume fraction) 40 % 40-54 Automated erythrocyte mean corpuscular volume 90 [ foz_us] 80-99 Automated erythrocyte mean corpuscular h emoglobin (mass per erythrocyte) 29 pg 25-34 Automated erythrocyte mean corpuscular h emoglobin concentration measurement (mass/volume) 33 g/dL 32-36 Automated erythrocyte distribution width ratio 12. 7 % 10.0- 14.5 Automated blood platelet count (count/volume) 232 10*3/uL 130-400 Automated blood platelet mean volume measurement 11.2 [foz_us] 7.4-10.4 Automated blood neutrophils/100 leukocytes 77 % 42-75 Automated blood lymphocytes/100 leukocytes 15 % 12-44 Blood monocytes/100 leukocytes 6 % 0-12 Automated blood eosinophils/100 leukocytes 2 % 0-10 Automated blood basophils/100 leukocytes 0 % 0-10 Blood neutrophils automated count (number/volume) 8.7 10*3 1.8-7.8 Blood lymphocytes automated count (number/volume) 1.6 10*3 1.0-4.0 Blood monocytes automated count (number/volume) 0. 7 10*3 0.0-1.0 Automated eosinophil count 0.2 10*3/uL 0 .0-0.3 Automated blood basophil count (count/volume) 0.0 10*3/uL 0.0-0.1 Comprehensive metabolic panel - 04/01/20 05:05 Serum or plasma sodium measurement (moles/volume) 139 mmol/L 135-145 Serum or plasma potassium measurement (moles/volume) 4.2 mmol/L 3.6-5.0 Serum or plasma chloride measurement (moles/volume) 103 mmol/L 98-107 Carbon dioxide 24 mmol/L 21-32 Serum or plasma anion gap determination (moles/volume) 12 mmol/L 5-14 Serum or plasma urea nitrogen measurement (mass/volume ) 23 mg/dL 7-18 Serum or plasma creatinine measurement (mass/volume) 0.69 mg/dL 0.60-1.30 Serum or plasma urea nitrogen/creatinine mass ratio 33 NRG Serum or plasma creatinine measurement w ith calculation of estimated glomerular filtration rate > NRG Serum or plasma glucose measurement (mass/volume) 126 mg/dL 70-105 Serum or plasma calcium measurement (mass/volume) 9.1 mg/dL 8.5-10.1 Serum or plasma total bilirubin measurement (mass/volu me) 0.6 mg/dL 0.1-1.0 Serum or plasma alkaline phosphatase vivian surement (enzymatic activity/volume) 67 U/L 40-136 Serum or plasma aspartate aminotransfera se measurement (enzymatic activity/volume) 55 U/L 5-34 Serum or plasma alanine aminotransferase measurement (enzymatic activity/volume) 60 U/L 0-55 Serum or plasma protein measurement (mass/volume) 7.2 g/dL 6.4-8.2 Serum or plasma albumin measurement (mass/volume) 3.7 g/dL 3.2-4.5 CALCIUM CORRECTED 9.3 mg/dL 8.5-10.1 Manual absolute plasma cell count - 03/14 05:05 Blood monocytes/100 leukocytes 5 % NRG Manual blood segmented neutrophils/100 leukocytes 78 % NRG Manual blood lymphocytes/100 leukocytes 13 % NRG Manual eosinophils/100 leukocytes in nose 3 % NRG Manual blood metamyelocytes/100 leukocytes 1 % NRG Blood hypochromia detection by light microscopy [facility] NR Complete blood count (CBC) with automate d white blood cell (WBC) differential - 04/08/20 04:13 Blood leukocytes automated count (number/volume) 12.3 10*3/uL 4.3-11.0 Blood erythrocytes automated count (number/volume) 4.37 10*6/uL 4.35-5.85 Venous blood hemoglobin measurement (mass/volume) 12.7 g/dL 13.3-17.7 Blood hematocrit (volume fraction) 39 % 40-54 Automated erythrocyte mean corpuscular volume 88 [ foz_us] 80-99 Automated erythrocyte mean corpuscular h emoglobin (mass per erythrocyte) 29 pg 25-34 Automated erythrocyte mean corpuscular h emoglobin concentration measurement (mass/volume) 33 g/dL 32-36 Automated erythrocyte distribution width ratio 13. 0 % 10.0- 14.5 Automated blood platelet count (count/volume) 288 10*3/uL 130-400 Automated blood platelet mean volume measurement 10.9 [foz_us] 7.4-10.4 Automated blood neutrophils/100 leukocytes 72 % 42-75 Automated blood lymphocytes/100 leukocytes 19 % 12-44 Blood monocytes/100 leukocytes 6 % 0-12 Automated blood eosinophils/100 leukocytes 3 % 0-10 Automated blood basophils/100 leukocytes 0 % 0-10 Blood neutrophils automated count (number/volume) 8.9 10*3 1.8-7.8 Blood lymphocytes automated count (number/volume) 2.4 10*3 1.0-4.0 Blood monocytes automated count (number/volume) 0. 7 10*3 0.0-1.0 Automated eosinophil count 0.3 10*3/uL 0 .0-0.3 Automated blood basophil count (count/volume) 0.0 10*3/uL 0.0-0.1 Comprehensive metabolic panel - 04/08/20 04:13 Serum or plasma sodium measurement (moles/volume) 136 mmol/L 135-145 Serum or plasma potassium measurement (moles/volume) 4.0 mmol/L 3.6-5.0 Serum or plasma chloride measurement (moles/volume) 102 mmol/L 98-107 Carbon dioxide 22 mmol/L 21-32 Serum or plasma anion gap determination (moles/volume) 12 mmol/L 5-14 Serum or plasma urea nitrogen measurement (mass/volume ) 20 mg/dL 7-18 Serum or plasma creatinine measurement (mass/volume) 0.72 mg/dL 0.60-1.30 Serum or plasma urea nitrogen/creatinine mass ratio 28 NRG Serum or plasma creatinine measurement w ith calculation of estimated glomerular filtration rate > NRG Serum or plasma glucose measurement (mass/volume) 108 mg/dL 70-105 Serum or plasma calcium measurement (mass/volume) 9.1 mg/dL 8.5-10.1 Serum or plasma total bilirubin measurement (mass/volu me) 0.5 mg/dL 0.1-1.0 Serum or plasma alkaline phosphatase vivian surement (enzymatic activity/volume) 64 U/L 40-136 Serum or plasma aspartate aminotransfera se measurement (enzymatic activity/volume) 39 U/L 5-34 Serum or plasma alanine aminotransferase measurement (enzymatic activity/volume) 37 U/L 0-55 Serum or plasma protein measurement (mass/volume) 6.9 g/dL 6.4-8.2 Serum or plasma albumin measurement (mass/volume) 3.7 g/dL 3.2-4.5 CALCIUM CORRECTED 9.3 mg/dL 8.5-10.1 Complete urinalysis with reflex to cultu re - 04/09/20 19:03 Urine color determination YELLOW NRG Urine clarity determination CLOUDY NR G Urine pH measurement by test strip 6.0 5-9 Specific gravity of urine by test strip 1.020 1.016-1.022 Urine protein assay by test strip, semi-quantitative NEGATIVE NEGATIVE Urine glucose detection by automated test strip NE GATIVE NEGATIVE Erythrocytes detection in urine sediment by light micr oscopy NEGATIVE NEGATIVE Urine ketones detection by automated test strip NE GATIVE NEGATIVE Urine nitrite detection by test strip POSITIVE NEGATIVE Urine total bilirubin detection by test strip NEGA TIVE NEGATIVE Urine urobilinogen measurement by automated test strip (mass/volume) >= mg/dL < = 1.0 Urine leukocyte esterase detection by dipstick TRA CE NEGATIVE Automated urine sediment erythrocyte cou nt by microscopy (number/high power field) NONE NRG Automated urine sediment leukocyte count by microscopy (number/high power field) [HPF] NRG Bacteria detection in urine sediment by light microsco py LARGE NRG Crystals detection in urine sediment by light microsco py NONE NRG Casts detection in urine sediment by light microscopy NONE NRG Mucus detection in urine sediment by light microscopy NEGATIVE NRG Complete urinalysis with reflex to culture YES NRG Bacterial urine culture - 04/09/20 19:03 Bacterial urine culture [id number] NRG COLONY COUNT >100,000/ML NRG RAPID ID PRELIM RAPID ID TEST AT [facility] 04/10 14:05 NRG ID CONFIRMATION RML CONFIRMED ID 04/10 15:05 NRG Semen free prostate specific antigen (PS A) measurement (units/volume) - 04/10/20 14:40 PSA EQUIMOLAR (DELROY) 5.68 % 0.00-4.0 0 Encounters ACCT No. Visit Date/Time Discharge Status Pt. Type Provider Facility Loc./Unit Complaint [id number] 03/03/2020 07:09:45 Document Registration [id number] 03/02/2020 13:56:00 03/02/2020 23:59: 59 CLS Outpatient Yamileth Pederson [id number] 03/24/2020 13:05:00 020 09:50:00 DIS Outpatient EDILMA RODRIGUEZ, VIANCA Coon [facility] 4TH ACUTE CVA WITH L SIDE P ARALYSIS NEGLECT [id number] 04/11/2020 05:41:[address] Outpatient TIFFANIE WOMACK MD [facility] RETENTION [id number] 03/28/2020 09:40:[address] Inpatient AIDE GATICA DO [facility] IRF CVA
--- NOTE | 2020-04-11 14:35 | OPERATIVE REPORT ---
DATE OF SERVICE: 04/11/2020 PREOPERATIVE DIAGNOSIS: Urinary retention. POSTOPERATIVE DIAGNOSIS: Urinary retention. OPERATION PERFORMED: Cystoscopy. SURGEON: Anshu Womack MD ANESTHESIA: Local. COMPLICATIONS: None. DESCRIPTION OF PROCEDURE: With the patient supine in his bed, genitalia were prepped and draped in the usual sterile fashion. Urethra was infiltrated with 2% lidocaine jelly. Penile clamp was applied. This was then removed, and a flexible cystoscope introduced under vision. The anterior urethra was normal. The prostate was very mildly enlarged with mild obstruction. Bladder wall revealed mild trabeculations, no foreign body, bladder tumor or stone visualized. Cystoscopy was confirmed in an antegrade fashion and the cystoscope was removed. The patient tolerated the procedure and anesthesia well, remained in his bed in stable condition. His PSA came back 5.68. I could not do a rectal exam on him today because he wanted to have a bowel movement and he was afraid of everything. We will do that at a later date. PLAN: We will give him again trial of voiding and manage accordingly. 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
== END | disposition home or self-care (01) ==
LOC: SDC 05:41
PROVIDERS: ATTEND Urology
DX: N40.1 Benign prostatic hyperplasia with lower urinary tract symptoms (principal); R33.8 Other retention of urine; R35.1 Nocturia; R39.198 Other difficulties with micturition; Z86.73 Personal history of transient ischemic attack (TIA), and cerebral infarction without residual deficits

== ENCOUNTER 2021-03-14 13:41 | Inpatient (IN) | payer MEDICAID, OTHER ==
[~2021-03-14] VITALS: Ht 167 cm; Wt 118.6 kg
[2021-03-14] VITALS (8 sets, daily range): BP systolic 95–108; BP diastolic 39–89
[~2021-03-14 13:41] MED LIST changes: +ASPI-808 PO; +ATOR40TA NG; +BACL10TA PO; +Bethanechol Chl PO; +CARB1DRO OU; +DICL100G18 TOP; +ENOX40DI8 SC; +LIDO5JEL10 TOP; -LIDOCAINE UROJET 2% GEL 10 ML PKG ONE; +METO50TA7 PO; +NITR100C10 PO; +ONDA4TAB11 PO; +SCOP1PAT11 TD; +SENN-20 PO; +SERT-413 PO; -SERT50TA9 PO; +TMSL.4C PO
[2021-03-14] MEDS ORDERED: fentaNYL INJ 100 MCG/2 ML AMP ONE ×4 (13:54→17:27)
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
[2021-03-14] MEDS ORDERED: fentaNYL INJ 100 MCG/2 ML AMP IVP ONE (14:45)
[2021-03-14] MEDS ORDERED: ONDANSETRON 4 MG/2 ML (SDV) Z0FRAN IVP ONE (14:45)
[2021-03-14] MEDS ORDERED: ONDANSETRON 4 MG/2 ML (SDV) Z0FRAN ONE (14:46)
[2021-03-14 14:50] LABS: HEMATOCRIT 38 % (40-54); HEMOGLOBIN 12.3 g/dL (13.3-17.7); MEAN CORPUSCULAR HEMOGLOBIN 30 pg (25-34); MEAN CORPUSCULAR HGB CONC 32 g/dL (32-36); MEAN CORPUSCULAR VOLUME 93 fL (80-99); MEAN PLATELET VOLUME 11.7 fL (9.0-12.2); PLATELET COUNT 348 10^3/uL (130-400); WHITE BLOOD COUNT 15.4 10^3/uL (4.3-11.0)
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
[2021-03-14 14:52] LABS: CHLORIDE 107 MMOL/L (98-107); POTASSIUM 3.9 MMOL/L (3.6-5.0)
[2021-03-14 14:53] LABS: ALBUMIN 4.2 GM/DL (3.2-4.5); SODIUM 140 MMOL/L (135-145)
[2021-03-14 14:54] LABS: CALCIUM 8.5 MG/DL (8.5-10.1)
[2021-03-14 14:55] LABS: GLUCOSE 179 MG/DL (70-105); TOTAL PROTEIN 6.8 GM/DL (6.4-8.2)
[2021-03-14 14:56] LABS: CARBON DIOXIDE 17 MMOL/L (21-32)
[2021-03-14 14:57] LABS: BILIRUBIN,TOTAL 0.3 MG/DL (0.1-1.0)
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
[2021-03-14 14:59] LABS: ALKALINE PHOSPHATASE 66 U/L (40-136); CREATININE SERUM 1.17 MG/DL (0.60-1.30); GFR ESTIMATED > 60
[2021-03-14 15:00] LABS: BILIRUBIN,DIRECT 0.2 MG/DL (0.0-0.3); BILIRUBIN,INDIRECT 0.1 MG/DL; BUN/CREATININE RATIO 25
[2021-03-14 15:02] LABS: ALANINE AMINOTRANSFERASE 60 U/L (0-55); MAGNESIUM 2.1 MG/DL (1.6-2.4)
[2021-03-14] MEDS ORDERED: TETANUS,DIPTH,PERTUSS P/F (BOOSTRIX) 0.5 ML VIAL IM ONE (15:15)
[2021-03-14 15:33] LABS: FIBRINOGEN 331 MG/DL (221-496); INR 1.1 (0.8-1.4); PARTIAL THROMBOPLASTIN TIME 22 SEC (24-35); PROTHROMBIN TIME PATIENT 14.8 SEC (12.2-14.7)
[2021-03-14] MEDS ORDERED: IOHEXOL 350 MG/ML 100 ML (OMNIPAQUE 350) VIAL IV ONE (15:45)
[2021-03-14] MEDS ORDERED: fentaNYL INJ 100 MCG/2 ML AMP IVP PRN (15:45)
[2021-03-14] MEDS ORDERED: HOLD METFORMIN - RECEIVED CONTRAST 20 ML VIAL IV SCH (15:45)
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
[2021-03-14 15:52] LABS: FIBRIN DEGRADATION PRODUCTS > 20.00 UG/ML (0.00-0.49)
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
[2021-03-14] MEDS ORDERED: NALOXONE 0.4 MG/ML 1 ML (NARCAN) VIAL ONE (16:16)
[2021-03-14] MEDS ORDERED: LIDOCAINE UROJET 2% GEL 10 ML PKG ONE (17:06)
[2021-03-14 17:28] LABS: BILIRUBIN,URINE NEGATIVE (NEGATIVE); CLARITY,URINE SL CLOUDY; COLOR,URINE YELLOW; GLUCOSE, URINE (UA) NEGATIVE (NEGATIVE); KETONES,URINE NEGATIVE (NEGATIVE); LEUKOCYTE ESTERASE ,URINE 1+ (NEGATIVE); NITRITE,URINE NEGATIVE (NEGATIVE); PROTEIN,URINE 1+ (NEGATIVE)
[2021-03-14 17:39] LABS: AMPHETAMINE SCREEN, URINE NEGATIVE (NEGATIVE); BARBITURATE SCREEN URINE NEGATIVE (NEGATIVE); BENZODIAZEPINES SCREEN URINE NEGATIVE (NEGATIVE); CANNABINOID SCREEN, URINE NEGATIVE (NEGATIVE); COCAINE SCREEN URINE NEGATIVE (NEGATIVE); METHADONE STAT NEGATIVE (NEGATIVE); METHAMPHETAMINE SCREEN URINE S NEGATIVE (NEGATIVE); OPIATE SCREEN URINE NEGATIVE (NEGATIVE); OXYCODONE STAT NEGATIVE (NEGATIVE); PROPOXYPHENE STAT NEGATIVE (NEGATIVE); TRICYCLIC ANTIDEPRESSANTS SCRE NEGATIVE (NEGATIVE)
[2021-03-14 17:40] LABS: RBC,URINE 25-50 /HPF
[2021-03-14 17:41] LABS: BACTERIA,URINE LARGE /HPF; SQUAMOUS EPITHELIAL CELL,UR RARE /HPF
[2021-03-14] MEDS ORDERED: CATHETER FLUSH 10 ML SYR IV PRN (17:45)
[2021-03-14] MEDS ORDERED: ONDANSETRON 4 MG/2 ML (SDV) Z0FRAN IV PRN (17:45)
[2021-03-14] MEDS ORDERED: fentaNYL INJ 100 MCG/2 ML AMP IV PRN (17:45)
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
--- NOTE | 2021-03-14 18:06 | Diagnostic Imaging Report ---
EXAMINATION: Chest 1 view. HISTORY: Rib fractures. COMPARISON: CT chest performed earlier the same date. FINDINGS: Small right-sided pneumothorax is visualized measuring 1.1 cm from the apex. The trace left pneumothorax is not well appreciated on this exam. Bilateral rib fractures are again noted. Scattered hazy opacities are seen in the periphery of the lungs without evidence of new focal consolidation. The cardiac silhouette is unremarkable. Loop recorder is seen overlying the cardiac silhouette. IMPRESSION: Small right-sided pneumothorax with bilateral rib fractures present. The previously visualized trace left pneumothorax is not well appreciated on this exam. No evidence of mediastinal shift. Recommend continued follow-up as indicated. Dictated by: Dictated on workstation # [id number]
[2021-03-14] MEDS ORDERED: morphine INJ 10 MG/ML 1ML (SYR OR VIAL) IVP NR (19:00)
[2021-03-14 19:18] LABS: BASOPHILS # (AUTO) 0.1 10^3/uL (0.0-0.1); BASOPHILS % (AUTO) 0 % (0-10); EOSINOPHILS % (AUTO) 0 % (0-10); HEMATOCRIT 33 % (40-54); HEMOGLOBIN 10.8 g/dL (13.3-17.7); LYMPHOCYTES # (AUTO) 1.6 10^3/uL (1.0-4.0); LYMPHOCYTES % (AUTO) 6 % (12-44); MEAN CORPUSCULAR HEMOGLOBIN 30 pg (25-34); MEAN CORPUSCULAR HGB CONC 33 g/dL (32-36); MEAN CORPUSCULAR VOLUME 93 fL (80-99); MEAN PLATELET VOLUME 11.1 fL (9.0-12.2); MONOCYTES # (AUTO) 1.8 10^3/uL (0.0-1.0); MONOCYTES % (AUTO) 7 % (0-12); NEUTROPHILS # (AUTO) 23.9 10^3/uL (1.8-7.8); NEUTROPHILS % (AUTO) 87 % (42-75); PLATELET COUNT 284 10^3/uL (130-400); WHITE BLOOD COUNT 27.6 10^3/uL (4.3-11.0)
[2021-03-14 19:33] LABS: BAND NEUTROPHILS 15 %; BASOPHILS % (MANUAL) 0 %; EOSINOPHILS % (MANUAL) 0 %; LYMPHOCYTES % (MANUAL) 6 %; MONOCYTES % (MANUAL) 4 %; NEUTROPHILS % (MANUAL) 75 %; PLATELET CLUMPS SLIGHT
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
[2021-03-14] MEDS ORDERED: ACETAMINOPHEN 500 MG TAB (TYLENOL) PO PRN (19:45)
[2021-03-14] MEDS ORDERED: CALCIUM CARBONATE 500 MG (TUMS) TAB.CHEW PO PRN (19:45)
[2021-03-14] MEDS ORDERED: LOPERAMIDE 2 MG (IMODIUM) TABLET PO PRN (19:45)
[2021-03-14] MEDS ORDERED: diphenhydrAMINE 25 MG TAB (BENADRYL) PO PRN (19:45)
[2021-03-14] MEDS ORDERED: DOCUSATE SODIUM 100 MG (COLACE) CAP PO PRN (19:45)
[2021-03-14] MEDS ORDERED: ALPRAZolam 0.25 MG (XANAX) TAB PO PRN (19:45)
[2021-03-14] MEDS ORDERED: ONDANSETRON 4 MG/2 ML (SDV) Z0FRAN IVP PRN (19:45)
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
[2021-03-14] MEDS: CATHETER FLUSH 10 ML SYR IV SCH (21:03)
[2021-03-14] MEDS: cefTRIAXone 1,000 MG in WATER (STERILE) FOR INJECTION 10 ML IV SCH (21:03)
[2021-03-14] MEDS: BETHANECHOL 25 MG (URECHOLINE) TAB PO SCH (21:04)
[2021-03-14] MEDS: HYDROcodone/APAP 5 MG/325 MG (LORTAB) TAB PO PRN (21:04)
[2021-03-14] MEDS: BACLOFEN 10 MG (LIORESAL) TAB PO SCH (21:04)
[2021-03-14] MEDS: SENNA W/DOCUSATE (SENOKOT S) TABLET PO SCH (21:04)
[2021-03-15] VITALS (24 sets, daily range): BP systolic 96–174; BP diastolic 56–106
[2021-03-15] MEDS: RT-ALBUTEROL SULF 2.5 MG/3 ML PRE-MIX VIAL INH SCH ×4 (02:16→22:04)
[2021-03-15 03:39] LABS: BASOPHILS % (AUTO) 0 % (0-10); EOSINOPHILS % (AUTO) 0 % (0-10); HEMATOCRIT 31 % (40-54); LYMPHOCYTES # (AUTO) 1.6 10^3/uL (1.0-4.0); LYMPHOCYTES % (AUTO) 8 % (12-44); MEAN CORPUSCULAR HEMOGLOBIN 30 pg (25-34); MEAN CORPUSCULAR HGB CONC 33 g/dL (32-36); MEAN CORPUSCULAR VOLUME 93 fL (80-99); MEAN PLATELET VOLUME 11.1 fL (9.0-12.2); MONOCYTES # (AUTO) 1.1 10^3/uL (0.0-1.0); MONOCYTES % (AUTO) 6 % (0-12); NEUTROPHILS # (AUTO) 15.8 10^3/uL (1.8-7.8); NEUTROPHILS % (AUTO) 85 % (42-75); PLATELET COUNT 247 10^3/uL (130-400); WHITE BLOOD COUNT 18.6 10^3/uL (4.3-11.0)
[2021-03-15 03:48] LABS: POTASSIUM 4.9 MMOL/L (3.6-5.0)
[2021-03-15 03:49] LABS: CALCIUM 8.1 MG/DL (8.5-10.1)
[2021-03-15 03:53] LABS: CREATININE SERUM 1.9 MG/DL (0.60-1.30)
[2021-03-15] MEDS: CATHETER FLUSH 10 ML SYR IV SCH ×3 (05:31→20:47)
[2021-03-15] MEDS: BETHANECHOL 25 MG (URECHOLINE) TAB PO SCH ×4 (05:31→20:47)
--- NOTE | 2021-03-15 08:03 | Diagnostic Imaging Report ---
Indication: Chest pain, follow-up pneumothoraces. Comparison: 03/14/2021. Discussion: Single portable upright view of the chest was obtained. 1.1 cm right apical pneumothorax is stable. Tiny left apical pneumothorax also appears grossly stable. Acute displaced left rib fractures are stable on this single view. Heart borders are mostly obscured. Some atelectasis noted within the lung bases. Impression: 1. Stable chest. Dictated by: Dictated on workstation # [id number]
[2021-03-15] MEDS: PANTOPRAZOLE 40 MG (PROTONIX) TAB PO SCH (08:25)
[2021-03-15] MEDS: HYDROmorphone 2 MG/ML VIAL (DILAUDID) IVP PRN ×2 (08:25→16:46)
[2021-03-15] MEDS: BACLOFEN 10 MG (LIORESAL) TAB PO SCH ×3 (08:25→20:47)
[2021-03-15] MEDS: SENNA W/DOCUSATE (SENOKOT S) TABLET PO SCH ×2 (08:26→20:47)
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
[2021-03-15] MEDS: ACETAMINOPHEN 325 MG TABLET PO PRN (16:46)
[2021-03-15] MEDS: TAMSULOSIN 0.4 MG (FLOMAX) CAP PO SCH (18:55)
[2021-03-15] MEDS: cefTRIAXone 1,000 MG in WATER (STERILE) FOR INJECTION 10 ML IV SCH (18:55)
[2021-03-16] VITALS (20 sets, daily range): BP systolic 118–163; BP diastolic 66–103
[2021-03-16] MEDS: RT-ALBUTEROL SULF 2.5 MG/3 ML PRE-MIX VIAL INH SCH ×4 (02:40→21:04)
[2021-03-16 03:37] LABS: BASOPHILS % (AUTO) 0 % (0-10); EOSINOPHILS % (AUTO) 0 % (0-10); HEMATOCRIT 25 % (40-54); HEMOGLOBIN 8.2 g/dL (13.3-17.7); LYMPHOCYTES # (AUTO) 1.1 10^3/uL (1.0-4.0); LYMPHOCYTES % (AUTO) 7 % (12-44); MEAN CORPUSCULAR HEMOGLOBIN 30 pg (25-34); MEAN CORPUSCULAR HGB CONC 33 g/dL (32-36); MEAN CORPUSCULAR VOLUME 92 fL (80-99); MEAN PLATELET VOLUME 11.1 fL (9.0-12.2); MONOCYTES # (AUTO) 0.7 10^3/uL (0.0-1.0); MONOCYTES % (AUTO) 5 % (0-12); NEUTROPHILS # (AUTO) 13.2 10^3/uL (1.8-7.8); NEUTROPHILS % (AUTO) 87 % (42-75); PLATELET COUNT 147 10^3/uL (130-400); WHITE BLOOD COUNT 15.1 10^3/uL (4.3-11.0)
[2021-03-16 03:49] LABS: POTASSIUM 3.9 MMOL/L (3.6-5.0)
[2021-03-16 03:50] LABS: CALCIUM 8.2 MG/DL (8.5-10.1)
[2021-03-16 03:54] LABS: CREATININE SERUM 1.29 MG/DL (0.60-1.30); PHOSPHORUS 3.5 MG/DL (2.3-4.7)
[2021-03-16] MEDS: BETHANECHOL 25 MG (URECHOLINE) TAB PO SCH ×4 (05:38→20:01)
[2021-03-16] MEDS: CATHETER FLUSH 10 ML SYR IV SCH ×3 (05:38→20:01)
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
[2021-03-16] MEDS: PANTOPRAZOLE 40 MG (PROTONIX) TAB PO SCH (07:44)
[2021-03-16] MEDS: SENNA W/DOCUSATE (SENOKOT S) TABLET PO SCH ×3 (07:44→20:01)
[2021-03-16] MEDS: BACLOFEN 10 MG (LIORESAL) TAB PO SCH ×3 (07:44→20:01)
[2021-03-16] MEDS: HYDROcodone/APAP 5 MG/325 MG (LORTAB) TAB PO PRN ×5 (07:49→23:38)
--- NOTE | 2021-03-16 08:39 | Diagnostic Imaging Report ---
EXAMINATION: Portable erect AP chest at 8:24 AM INDICATION: Pneumothorax The prior noted a small apical pneumothorax on the right. That finding is difficult to appreciate on this exam. The heart is stable in size when compared to the prior study. There is again evidence of atelectasis/infiltrate involving the lung bases, particularly left lower lobe. The upper lungs are relatively clear. The mediastinum is not widened. The rib fractures on the left seen previously are again evident and no different. The loop recorder device also seems unchanged in position. IMPRESSION: 1. The small apical pneumothorax on the right seen previously cannot be identified with certainty on this exam. 2. The overall appearance of chest has not changed significantly otherwise. Dictated by: Dictated on workstation # [id number]
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
[2021-03-16] MEDS ORDERED: BISACODYL 10 MG SUPP (DULCOLAX) PR NR (11:30)
[2021-03-16] MEDS: polyethylene glycoL POWDER 17 GM (MIRALAX) PACK PO SCH ×2 (11:31→20:01)
[2021-03-16] MEDS: LACTULOSE SYRUP 10GM/15ML (ENULOSE) 30ML UDC PO SCH ×2 (11:31→20:00)
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
[2021-03-16 14:58] LABS: BASOPHILS % (AUTO) 0 % (0-10); HEMOGLOBIN 7.9 g/dL (13.3-17.7); MEAN PLATELET VOLUME 11.6 fL (9.0-12.2); MONOCYTES % (AUTO) 5 % (0-12)
[2021-03-16 15:00] LABS: EOSINOPHILS % (AUTO) 0 % (0-10); HEMATOCRIT 24 % (40-54); LYMPHOCYTES % (AUTO) 8 % (12-44); MEAN CORPUSCULAR HEMOGLOBIN 30 pg (25-34); MEAN CORPUSCULAR HGB CONC 33 g/dL (32-36); MEAN CORPUSCULAR VOLUME 92 fL (80-99); MONOCYTES # (AUTO) 0.7 10^3/uL (0.0-1.0); NEUTROPHILS # (AUTO) 11.4 10^3/uL (1.8-7.8); NEUTROPHILS % (AUTO) 86 % (42-75); PLATELET COUNT 125 10^3/uL (130-400); WHITE BLOOD COUNT 13.2 10^3/uL (4.3-11.0)
[2021-03-16] MEDS: cefTRIAXone 1,000 MG in WATER (STERILE) FOR INJECTION 10 ML IV SCH (18:01)
[2021-03-16] MEDS: TAMSULOSIN 0.4 MG (FLOMAX) CAP PO SCH (18:01)
[2021-03-17] VITALS (11 sets, daily range): BP systolic 112–138; BP diastolic 66–88
[2021-03-17] MEDS: RT-ALBUTEROL SULF 2.5 MG/3 ML PRE-MIX VIAL INH SCH ×4 (02:34→21:19)
[2021-03-17] MEDS: HYDROcodone/APAP 5 MG/325 MG (LORTAB) TAB PO PRN ×4 (04:34→20:56)
[2021-03-17] MEDS: CATHETER FLUSH 10 ML SYR IV SCH ×3 (05:13→20:53)
[2021-03-17] MEDS: BETHANECHOL 25 MG (URECHOLINE) TAB PO SCH ×4 (05:13→20:52)
[2021-03-17 06:48] LABS: BASOPHILS % (AUTO) 0 % (0-10); HEMOGLOBIN 7.4 g/dL (13.3-17.7)
[2021-03-17 06:50] LABS: EOSINOPHILS % (AUTO) 0 % (0-10); HEMATOCRIT 23 % (40-54); LYMPHOCYTES # (AUTO) 1.1 10^3/uL (1.0-4.0); LYMPHOCYTES % (AUTO) 10 % (12-44); MEAN CORPUSCULAR HEMOGLOBIN 30 pg (25-34); MEAN CORPUSCULAR HGB CONC 33 g/dL (32-36); MEAN CORPUSCULAR VOLUME 92 fL (80-99); MEAN PLATELET VOLUME 12.1 fL (9.0-12.2); MONOCYTES # (AUTO) 0.6 10^3/uL (0.0-1.0); MONOCYTES % (AUTO) 6 % (0-12); NEUTROPHILS # (AUTO) 9.7 10^3/uL (1.8-7.8); NEUTROPHILS % (AUTO) 84 % (42-75); PLATELET COUNT 125 10^3/uL (130-400); WHITE BLOOD COUNT 11.5 10^3/uL (4.3-11.0)
[2021-03-17 07:08] LABS: ALANINE AMINOTRANSFERASE 61 U/L (0-55); ALBUMIN 3.3 GM/DL (3.2-4.5); ALKALINE PHOSPHATASE 57 U/L (40-136); BILIRUBIN,TOTAL 0.9 MG/DL (0.1-1.0); BUN/CREATININE RATIO 32; CALCIUM 8.9 MG/DL (8.5-10.1); CARBON DIOXIDE 24 MMOL/L (21-32); CHLORIDE 105 MMOL/L (98-107); CREATININE SERUM 0.73 MG/DL (0.60-1.30); GFR ESTIMATED > 60; GLUCOSE 132 MG/DL (70-105); SODIUM 137 MMOL/L (135-145); TOTAL PROTEIN 6.3 GM/DL (6.4-8.2)
[2021-03-17] MEDS: SENNA W/DOCUSATE (SENOKOT S) TABLET PO SCH ×2 (08:26→20:52)
[2021-03-17] MEDS: BACLOFEN 10 MG (LIORESAL) TAB PO SCH ×3 (08:26→20:53)
[2021-03-17] MEDS: polyethylene glycoL POWDER 17 GM (MIRALAX) PACK PO SCH ×2 (08:26→20:52)
[2021-03-17] MEDS: LACTULOSE SYRUP 10GM/15ML (ENULOSE) 30ML UDC PO SCH ×2 (08:26→20:52)
[2021-03-17] MEDS: BISACODYL 10 MG SUPP (DULCOLAX) PR SCH (08:26)
[2021-03-17] MEDS: PANTOPRAZOLE 40 MG (PROTONIX) TAB PO SCH (08:26)
--- NOTE | 2021-03-17 10:04 | Physical Therapy Daily Note ---
PT Daily Note-Current Subjective Patient has 10/10 total body pain. Agrees to exercises only after attempting to sit EOB. Pain Numeric Pain Scale: 10-Worst Possible Pain Location: Soft Tissue Location Body Site: Generalized Pain Description: Acute Mental Status Patient Orientation: Person, Time, Situation Attachments: Oxygen, IV Transfers SCALE: Activities may be completed with or without assistive devices. 6-Hliyrbkwqd-skqjulh completes the activity by him/herself with no assistance from a helper. 5-Set-up or Clean-up Assistance-helper sets up or cleans up; patient completes activity. [place] assists only prior to or following the activity. 4-Supervision or Touching Assistance-helper provides verbal cues and/or touching/steadying and/or contact guard assistance as patient completes activity. Assistance may be provided throughout the activity or intermittently. 3-Partial/Moderate Assistance-helper does LESS THAN HALF the effort. [place] lifts, holds or supports trunk or limbs, but provides less than half the effort. 2-Substantial/Maximal Assistance-helper does MORE THAN HALF the effort. [place] lifts or holds trunk or limbs and provides more than half the effort. 3-Acynbcfog-xiwlxy does ALL the effort. Patient does none of the effort to complete the activity. Or, the assistance of 2 or more helpers is required for the patient to complete the activity. If activity was not attempted, code reason: 7-Patient Refused. 9-Not Applicable-not attempted and the patient did not perform the activity before the current illness, exacerbation or injury. 10-Not Attempted due to Environmental Limitations-(lack of equipment, weather restraints, etc.). 88-Not Attempted due to Medical Conditions or Safety Concerns. Roll Left & Right (QC): 1 attempted to sit EOB with patient refusing and resisting due to pain with meds issued. Weight Bearing Right Lower Extremity: Right Full Weight Bearing Left Lower Extremity: Left Weight Bearing/Tolerated Gait Training Does the Patient Walk?: No and Walking Goal NOT indicated Exercises Supine Ex: Ankle pumps, Heel Slides, Straight leg raise, Hip abd/add Supine Reps: 15 (2 sets PROM left LE/AAROM right LE) Assessment Patient becomes slightly agitated due to pain. PT to increase activity as tolerated by patient. Patient is nonambulatory PLOF and has caregiver and spouse at home to assist with mobility. Patient is w/c bound. PT Short Term Goals Short Term Goals Time Frame: Mar 22, 2021 Roll Left & Right: 3 Sit to lyin Lying to sitting on side of be: 3 Sit to stand: 3 PT [employer] Goals Residential Goals PT Residential Goals Time Frame: Mar 29, 2021 Roll Left & Right (QC): 3 Sit to Lying (QC): 3 Lying-Sitting on Side/Bed(QC): 3 Sit to Stand (QC): 3 Chair/Vvn-mr-Ngxul Xfer(QC): 2 Toilet Transfer (QC): 2 Car Transfer (QC): 9 Does the Patient Walk: No and Walking Goal NOT indicated Walk 10 feet (QC): 9 Walk 50ft with 2 Turns (QC): 9 Walk 150 ft (QC): 9 Walking 10ft on Uneven Surface: 9 1 Step (curb) (QC): 9 4 Steps (QC): 9 12 Steps (QC): 9 Picking up an Object (QC): 9 Does the Pt use WC or Scooter?: Yes Wheel 50 feet with 2 turns (QC: 6 Type: Manual Wheel 150 feet: 6 Type: Manual PT Plan Treatment/Plan Treatment Plan: Continue Plan of Care Treatment Plan: Bed Mobility, Education, Functional Activity [place], Functional Strength, Gait, Safety, Therapeutic Exercise, Transfers Treatment Duration: Mar 29, 2021 Frequency: 6 times per week Estimated Hrs Per Day: .5 hour per day Patient and/or Family Agrees t: Yes Time/GCodes Time In: 820 Time Out: 843 Total Billed Treatment Time: 23 Total Billed Treatment 1 visit EX x 2 23 min OH KUMAR PT Mar 17, 2021 10:04
[2021-03-17] MEDS ORDERED: NS IV 500 ML 500 ML IV SCH (10:15)
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
[2021-03-17] MEDS: TAMSULOSIN 0.4 MG (FLOMAX) CAP PO SCH (16:47)
[2021-03-17] MEDS: cefTRIAXone 1,000 MG in WATER (STERILE) FOR INJECTION 10 ML IV SCH (17:03)
[2021-03-17] MEDS: ACETAMINOPHEN 325 MG TABLET PO PRN (20:53)
[2021-03-18 00:20] VITALS: BP 128/84
[2021-03-18] MEDS: RT-ALBUTEROL SULF 2.5 MG/3 ML PRE-MIX VIAL INH SCH ×4 (02:17→21:30)
[2021-03-18] MEDS: HYDROcodone/APAP 5 MG/325 MG (LORTAB) TAB PO PRN ×3 (03:45→20:14)
[2021-03-18 04:24] VITALS: BP 161/91
[2021-03-18] MEDS: BETHANECHOL 25 MG (URECHOLINE) TAB PO SCH ×4 (06:00→20:14)
[2021-03-18] MEDS: CATHETER FLUSH 10 ML SYR IV SCH ×3 (06:01→20:15)
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
[2021-03-18 06:47] LABS: HEMOGLOBIN 8.5 g/dL (13.3-17.7)
[2021-03-18 06:49] LABS: BASOPHILS % (AUTO) 0 % (0-10); EOSINOPHILS # (AUTO) 0.2 10^3/uL (0.0-0.3); EOSINOPHILS % (AUTO) 2 % (0-10); HEMATOCRIT 26 % (40-54); LYMPHOCYTES # (AUTO) 1.4 10^3/uL (1.0-4.0); LYMPHOCYTES % (AUTO) 13 % (12-44); MEAN CORPUSCULAR HEMOGLOBIN 29 pg (25-34); MEAN CORPUSCULAR HGB CONC 33 g/dL (32-36); MEAN CORPUSCULAR VOLUME 90 fL (80-99); MEAN PLATELET VOLUME 11.4 fL (9.0-12.2); MONOCYTES # (AUTO) 0.7 10^3/uL (0.0-1.0); MONOCYTES % (AUTO) 7 % (0-12); NEUTROPHILS # (AUTO) 8.3 10^3/uL (1.8-7.8); NEUTROPHILS % (AUTO) 77 % (42-75); PLATELET COUNT 141 10^3/uL (130-400); WHITE BLOOD COUNT 10.7 10^3/uL (4.3-11.0)
[2021-03-18 07:05] LABS: ALBUMIN 3.4 GM/DL (3.2-4.5); CHLORIDE 105 MMOL/L (98-107); POTASSIUM 4.2 MMOL/L (3.6-5.0); SODIUM 140 MMOL/L (135-145)
[2021-03-18 07:07] LABS: CALCIUM 8.5 MG/DL (8.5-10.1)
[2021-03-18 07:08] LABS: GLUCOSE 122 MG/DL (70-105); TOTAL PROTEIN 6.2 GM/DL (6.4-8.2)
[2021-03-18 07:09] LABS: CARBON DIOXIDE 26 MMOL/L (21-32)
[2021-03-18 07:11] LABS: ALKALINE PHOSPHATASE 51 U/L (40-136)
[2021-03-18 07:12] LABS: GFR ESTIMATED > 60
[2021-03-18 07:13] LABS: BUN/CREATININE RATIO 26
[2021-03-18 07:14] LABS: ALANINE AMINOTRANSFERASE 51 U/L (0-55)
[2021-03-18 08:37] VITALS: BP 160/95
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
[2021-03-18] MEDS: BISACODYL 10 MG SUPP (DULCOLAX) PR SCH (09:00)
[2021-03-18] MEDS ORDERED: FUROSEMIDE 40 MG/4 ML INJ (LASIX) IVP ONE (09:15)
[2021-03-18] MEDS ORDERED: BISACODYL 10 MG SUPP (DULCOLAX) PR ONE (09:15)
[2021-03-18] MEDS: polyethylene glycoL POWDER 17 GM (MIRALAX) PACK PO SCH ×2 (09:44→20:14)
[2021-03-18] MEDS: BACLOFEN 10 MG (LIORESAL) TAB PO SCH ×3 (09:44→20:14)
[2021-03-18] MEDS: LACTULOSE SYRUP 10GM/15ML (ENULOSE) 30ML UDC PO SCH ×2 (09:44→20:14)
[2021-03-18] MEDS: PANTOPRAZOLE 40 MG (PROTONIX) TAB PO SCH (09:44)
[2021-03-18] MEDS: SENNA W/DOCUSATE (SENOKOT S) TABLET PO SCH ×2 (09:45→20:14)
--- NOTE | 2021-03-18 11:31 | Physical Therapy Daily Note ---
PT Daily Note-Current Subjective Patient agrees to PT. RN issued pain medication prior to therapy session. Pain Numeric Pain Scale: 8 Location: Right Location Body Site: Side Pain Description: Acute Mental Status Patient Orientation: Person, Time, Situation Transfers SCALE: Activities may be completed with or without assistive devices. 7-Mzmxaknnuf-frnjgpm completes the activity by him/herself with no assistance from a helper. 5-Set-up or Clean-up Assistance-helper sets up or cleans up; patient completes activity. [place] assists only prior to or following the activity. 4-Supervision or Touching Assistance-helper provides verbal cues and/or touching/steadying and/or contact guard assistance as patient completes activity. Assistance may be provided throughout the activity or intermittently. 3-Partial/Moderate Assistance-helper does LESS THAN HALF the effort. [place] lifts, holds or supports trunk or limbs, but provides less than half the effort. 2-Substantial/Maximal Assistance-helper does MORE THAN HALF the effort. [place] lifts or holds trunk or limbs and provides more than half the effort. 2-Xkucvrzaj-tlzjqv does ALL the effort. Patient does none of the effort to complete the activity. Or, the assistance of 2 or more helpers is required for the patient to complete the activity. If activity was not attempted, code reason: 7-Patient Refused. 9-Not Applicable-not attempted and the patient did not perform the activity before the current illness, exacerbation or injury. 10-Not Attempted due to Environmental Limitations-(lack of equipment, weather restraints, etc.). 88-Not Attempted due to Medical Conditions or Safety Concerns. Roll Left & Right (QC): 1 Sit to Lying (QC): 1 (x 2) Lying to Sitting/Side of Bed(Q: 1 (x 2) Patient sat EOB x 10 minutes SBA Weight Bearing Right Lower Extremity: Right Full Weight Bearing Left Lower Extremity: Left Weight Bearing/Tolerated Exercises Supine Ex: Ankle pumps, Heel Slides, Straight leg raise, Hip abd/add Supine Reps: 15 (left LE PROM/right LE AAROM) Seated Therapy Exercises: Ankle pumps, Long arc quads, Hip flexion Seated Reps: 15 (right LE ) Assessment Patient tolerated treatment well and returned to supine. PT to increase activ ity as tolerated by patient. Patient fatigues with minimal activity. PT Short Term Goals Short Term Goals Time Frame: Mar 22, 2021 Roll Left & Right: 3 Sit to lyin Lying to sitting on side of be: 3 Sit to stand: 3 PT Gis Administrator Goals Gis Administrator Goals PT Fpc Goals Time Frame: Mar 29, 2021 Roll Left & Right (QC): 3 Sit to Lying (QC): 3 Lying-Sitting on Side/Bed(QC): 3 Sit to Stand (QC): 3 Chair/Iyc-ga-Kmobt Xfer(QC): 2 Toilet Transfer (QC): 2 Car Transfer (QC): 9 Does the Patient Walk: No and Walking Goal NOT indicated Walk 10 feet (QC): 9 Walk 50ft with 2 Turns (QC): 9 Walk 150 ft (QC): 9 Walking 10ft on Uneven Surface: 9 1 Step (curb) (QC): 9 4 Steps (QC): 9 12 Steps (QC): 9 Picking up an Object (QC): 9 Does the Pt use WC or Scooter?: Yes Wheel 50 feet with 2 turns (QC: 6 Type: Manual Wheel 150 feet: 6 Type: Manual PT Plan Treatment/Plan Treatment Plan: Continue Plan of Care Treatment Plan: Bed Mobility, Education, Functional Activity [place], Functional Strength, Gait, Safety, Therapeutic Exercise, Transfers Treatment Duration: Mar 29, 2021 Frequency: 6 times per week Estimated Hrs Per Day: .5 hour per day Patient and/or Family Agrees t: Yes Time/GCodes Time In: 1055 Time Out: 1112 Total Billed Treatment Time: 17 Total Billed Treatment 1 visit EX 17 min OH KUMAR PT Mar 18, 2021 11:31
--- NOTE | 2021-03-18 11:42 | Occupational Ther Daily Note ---
OT Current Status-Daily Note Subjective Pt laying in bed, agreeable to OT tx. States his pain is better (8/10) but declines OOB activities at this time. Mental Status/Objective Patient Orientation: Normal For Age ADL-Treatment Therapy Code Descriptions/Definitions Functional [place] Measure: 0=Not Assessed/NA 4=Minimal Assistance 1=Total Assistance 5=Supervision or Setup 2=Maximal Assistance 6=Modified [place] 3=Moderate Assistance 7=Complete IndependenceSCALE: Activities may be completed with or without assistive devices. 9-Weppyzslhp-gxvcoqx completes the activity by him/herself with no assistance from a helper. 5-Set-up or Clean-up Assistance-helper sets up or cleans up; patient completes activity. [place] assists only prior to or following the activity. 4-Supervision or Touching Assistance-helper provides verbal cues and/or touching/steadying and/or contact guard assistance as patient completes activity. Assistance may be provided throughout the activity or intermittently. 3-Partial/Moderate Assistance-helper does LESS THAN HALF the effort. [place] lifts, holds or supports trunk or limbs, but provides less than half the effort. 2-Substantial/Maximal Assistance-helper does MORE THAN HALF the effort. [place] lifts or holds trunk or limbs and provides more than half the effort. 7-Jowljtmql-tkcgpx does ALL the effort. Patient does none of the effort to complete the activity. Or, the assistance of 2 or more helpers is required for the patient to complete the activity. If activity was not attempted, code reason: 7-Patient Refused. 9-Not Applicable-not attempted and the patient did not perform the activity before the current illness, exacerbation or injury. 10-Not Attempted due to Environmental Limitations-(lack of equipment, weather restraints, etc.). 88-Not Attempted due to Medical Conditions or Safety Concerns. Oral Hygiene (QC): 7 Shower/Bathe Self (QC): 7 Upper Body Dressing (QC): 2 (Max A with changing hospital gown.) Lower Body Dressing (QC): 7 On/Off Footwear: 7 Other Treatment Pt laying in bed, states he sat at EOB with PT prior to OT arrival. Pt agreeable to bed level activity. OT performed gentle PROM to LUE at elbow, wrist, and fingers. Pt refused to allow PROM at L shoulder due to it causing increased pain in ribs. Pt able to wash face with set up assistance, washing around scabs on forehead. OT provided pt with hospital gown, max A with doffing gown, and max A to don. Pt able to thread RUE in/out of gown, but required assistance with LUE and pulling gown up around his neck. Pt declined OOB activities at this time, as he just sat up on EOB with PT and he would like to rest at this time, declining further ADLs and tx. Post tx, pt laying in bed, call light in reach and all needs met. Education OT Patient Education: Correct positioning, Modified ADL techniques, Progress t gustavo Goal/Update tx plan, Purpose of tx/functional activities Teaching Recipient: Patient Teaching Methods: Discussion Response to Teaching: Verbalize Understanding OT [facility] Goals Billing Specialist Goals Time Frame: Mar 28, 2021 Eating (QC): 6 Oral Hygiene (QC): 6 Toileting Hygiene (QC): 3 Shower/Bathe Self (QC): 3 Upper Body Dressing (QC): 3 Lower Body Dressing (QC): 3 On/Off Footwear (QC): 2 Additional Goals: 1-Demonstrate ADL Tasks, 2-Verbalize Understanding, 3-ImproveStrength/[place] 1=Demonstrate adherence to instructed precautions during ADL tasks. 2=Patient will verbalize/demonstrate understanding of assistive devices/modifications for ADL. 3=Patient will improve strength/tolerance for activity to enable patient to perform ADL's. OT Education/Plan Problem List/Assessment Assessment: Decreased Activ Tolerance, Decreased UE Strength, Dependent Transfers, Impaired Bed Mobility, Impaired Coordination, Impaired Funct Balance, Impaired I ADL's, Impaired Self-Care Skills, Restricted Funct UE ROM Pt would benefit from skilled OT services in order to increase safety and independence with ADLs in order to maximize LOF for safe return home and decrease caregiver burden. Discharge Recommendations Plan/Recommendations: Continue POC Treatment Plan/Plan of Care Patient would benefit from OT for education, treatment and training to promote independence in ADL's, mobility, safety and/or upper extremity function for ADL's. Plan of Care: ADL Retraining, Functional Mobility, UE Funct Exercise/Act Treatment Duration: Mar 28, 2021 Frequency: 5 times per week Estimated Hrs Per Day: .25 hour per day Rehab Potential: Fair Time/GCodes Start Time: 11:15 Stop Time: 11:30 Total Time Billed (hr/min): 15 Billed Treatment Time 1, ADL QUEENIE PEARSON OT Mar 18, 2021 11:42
[2021-03-18 11:59] VITALS: BP 138/85
[2021-03-18] MEDS: ENOXAPARIN 40 MG/0.4 ML (LOVENOX) SYR SC SCH (13:18)
[2021-03-18 16:00] VITALS: BP 130/67
[2021-03-18] MEDS ORDERED: NAPR220T66 PO (16:04)
[2021-03-18] MEDS ORDERED: METO50TA7 PO (16:04)
[2021-03-18] MEDS ORDERED: ACET-2267 PO (16:04)
[2021-03-18] MEDS ORDERED: LISI10TA25 PO (16:04)
[2021-03-18] MEDS ORDERED: GING250C PO (16:04)
[2021-03-18] MEDS ORDERED: ASPI-1238 PO (16:04)
[2021-03-18] MEDS ORDERED: GABA-486 PO (16:04)
[2021-03-18] MEDS ORDERED: BACL10TA PO (16:04)
[2021-03-18] MEDS ORDERED: OMEP20CA18 PO (16:04)
[2021-03-18] MEDS ORDERED: DIPH25CA48 PO (16:04)
[2021-03-18] MEDS ORDERED: TMSL.4C PO (16:04)
[2021-03-18] MEDS ORDERED: ATOR40TA70 PO (16:04)
[2021-03-18] MEDS ORDERED: BETH50TA2 PO (16:04)
[2021-03-18] MEDS ORDERED: SERT-414 PO (16:04)
[2021-03-18] MEDS ORDERED: GARL10002 PO (16:04)
[2021-03-18] MEDS: TAMSULOSIN 0.4 MG (FLOMAX) CAP PO SCH (16:55)
[2021-03-18 20:00] VITALS: BP 140/72
[2021-03-18] MEDS: cefTRIAXone 1,000 MG in WATER (STERILE) FOR INJECTION 10 ML IV SCH (20:14)
[2021-03-19 00:13] VITALS: BP 142/74
[2021-03-19] MEDS: RT-ALBUTEROL SULF 2.5 MG/3 ML PRE-MIX VIAL INH SCH ×4 (01:32→21:01)
[2021-03-19 03:29] VITALS: BP 133/75
[2021-03-19] MEDS: CATHETER FLUSH 10 ML SYR IV SCH ×3 (06:11→20:21)
[2021-03-19] MEDS: BETHANECHOL 25 MG (URECHOLINE) TAB PO SCH ×4 (06:11→20:19)
[2021-03-19 07:35] LABS: BASOPHILS % (AUTO) 0 % (0-10); EOSINOPHILS # (AUTO) 0.2 10^3/uL (0.0-0.3); EOSINOPHILS % (AUTO) 1 % (0-10); HEMATOCRIT 28 % (40-54); HEMOGLOBIN 9.2 g/dL (13.3-17.7); LYMPHOCYTES # (AUTO) 1.5 10^3/uL (1.0-4.0); LYMPHOCYTES % (AUTO) 12 % (12-44); MEAN CORPUSCULAR HEMOGLOBIN 30 pg (25-34); MEAN CORPUSCULAR HGB CONC 33 g/dL (32-36); MEAN CORPUSCULAR VOLUME 91 fL (80-99); MEAN PLATELET VOLUME 11.1 fL (9.0-12.2); MONOCYTES # (AUTO) 0.8 10^3/uL (0.0-1.0); MONOCYTES % (AUTO) 7 % (0-12); NEUTROPHILS # (AUTO) 9.3 10^3/uL (1.8-7.8); NEUTROPHILS % (AUTO) 77 % (42-75); PLATELET COUNT 194 10^3/uL (130-400)
[2021-03-19 07:46] LABS: ALBUMIN 3.5 GM/DL (3.2-4.5)
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
[2021-03-19 07:47] LABS: CHLORIDE 102 MMOL/L (98-107); SODIUM 137 MMOL/L (135-145)
[2021-03-19 07:48] LABS: CALCIUM 8.7 MG/DL (8.5-10.1)
[2021-03-19 07:49] LABS: GLUCOSE 124 MG/DL (70-105); TOTAL PROTEIN 6.5 GM/DL (6.4-8.2)
[2021-03-19 07:50] LABS: CARBON DIOXIDE 27 MMOL/L (21-32)
[2021-03-19 07:51] LABS: BILIRUBIN,TOTAL 1.3 MG/DL (0.1-1.0)
[2021-03-19 07:52] LABS: ALKALINE PHOSPHATASE 53 U/L (40-136)
[2021-03-19 07:53] LABS: CREATININE SERUM 0.71 MG/DL (0.60-1.30); GFR ESTIMATED > 60
[2021-03-19 07:54] LABS: BUN/CREATININE RATIO 28
[2021-03-19 07:55] LABS: ALANINE AMINOTRANSFERASE 47 U/L (0-55)
[2021-03-19 08:18] VITALS: BP 166/80
[2021-03-19] MEDS: CEFDINIR 300 MG (OMNICEF) CAP PO SCH ×2 (08:24→20:19)
[2021-03-19] MEDS: HYDROcodone/APAP 5 MG/325 MG (LORTAB) TAB PO PRN ×2 (08:25→14:41)
[2021-03-19] MEDS: polyethylene glycoL POWDER 17 GM (MIRALAX) PACK PO SCH ×2 (08:25→20:21)
[2021-03-19] MEDS: LACTULOSE SYRUP 10GM/15ML (ENULOSE) 30ML UDC PO SCH ×2 (08:25→20:21)
[2021-03-19] MEDS: SENNA W/DOCUSATE (SENOKOT S) TABLET PO SCH ×2 (08:25→20:19)
[2021-03-19] MEDS: BACLOFEN 10 MG (LIORESAL) TAB PO SCH ×3 (08:25→20:19)
[2021-03-19] MEDS: PANTOPRAZOLE 40 MG (PROTONIX) TAB PO SCH (08:25)
[2021-03-19] MEDS: BISACODYL 10 MG SUPP (DULCOLAX) PR SCH (08:26)
--- NOTE | 2021-03-19 10:51 | Physical Therapy Daily Note ---
PT Daily Note-Current Subjective Patient in bed pre tx, agrees to PT, has 10/10 pain in left flank, nurse was in room at end of tx and is aware of pain. Appearance Patient in bed post tx with nurse call, phone, tray, all needs met. Mental Status Patient Orientation: Person, Place, Situation Attachments: SCD's Transfers SCALE: Activities may be completed with or without assistive devices. 6-Atpuscqdyu-grrnzjj completes the activity by him/herself with no assistance from a helper. 5-Set-up or Clean-up Assistance-helper sets up or cleans up; patient completes activity. [place] assists only prior to or following the activity. 4-Supervision or Touching Assistance-helper provides verbal cues and/or touching/steadying and/or contact guard assistance as patient completes activity. Assistance may be provided throughout the activity or intermittently. 3-Partial/Moderate Assistance-helper does LESS THAN HALF the effort. [place] lifts, holds or supports trunk or limbs, but provides less than half the effort. 2-Substantial/Maximal Assistance-helper does MORE THAN HALF the effort. [place] lifts or holds trunk or limbs and provides more than half the effort. 9-Izgloaupu-qblvkx does ALL the effort. Patient does none of the effort to complete the activity. Or, the assistance of 2 or more helpers is required for the patient to complete the activity. If activity was not attempted, code reason: 7-Patient Refused. 9-Not Applicable-not attempted and the patient did not perform the activity before the current illness, exacerbation or injury. 10-Not Attempted due to Environmental Limitations-(lack of equipment, weather restraints, etc.). 88-Not Attempted due to Medical Conditions or Safety Concerns. Roll Left & Right (QC): 2 Sit to Lying (QC): 1 Lying to Sitting/Side of Bed(Q: 1 Patient takes assist of 2 for supine <-> sit. He sat on the side of the bed for approx 10 min, performed some LE exercises, then needed to lay back down due to pain. After laying down he turned side to side for changing sheet and pad and then dependent to scoot up in bed. Weight Bearing Right Lower Extremity: Right Full Weight Bearing Left Lower Extremity: Left Weight Bearing/Tolerated Exercises Seated Therapy Exercises: Ankle pumps, Long arc quads Seated Reps: 20 (AROM on the right side, PROM on the left side) Treatments LE exercise, bed mobility, sitting Assessment Current Status: Fair Progress Patient states he was able to tolerate sitting a little better today. PT Short Term Goals Short Term Goals Time Frame: Mar 22, 2021 Roll Left & Right: 3 Sit to lyin Lying to sitting on side of be: 3 Sit to stand: 3 PT Usp Goals Inner Diameter Grinder Tool Goals PT Usp Goals Time Frame: Mar 29, 2021 Roll Left & Right (QC): 3 Sit to Lying (QC): 3 Lying-Sitting on Side/Bed(QC): 3 Sit to Stand (QC): 3 Chair/Yle-cj-Denfc Xfer(QC): 2 Toilet Transfer (QC): 2 Car Transfer (QC): 9 Does the Patient Walk: No and Walking Goal NOT indicated Walk 10 feet (QC): 9 Walk 50ft with 2 Turns (QC): 9 Walk 150 ft (QC): 9 Walking 10ft on Uneven Surface: 9 1 Step (curb) (QC): 9 4 Steps (QC): 9 12 Steps (QC): 9 Picking up an Object (QC): 9 Does the Pt use WC or Scooter?: Yes Wheel 50 feet with 2 turns (QC: 6 Type: Manual Wheel 150 feet: 6 Type: Manual PT Plan Problem List Problem List: Activity Tolerance, Functional Strength, Safety, Balance, Gait, Transfer, Bed Mobility, ROM Treatment/Plan Treatment Plan: Continue Plan of Care Treatment Plan: Bed Mobility, Education, Functional Activity [place], Functional Strength, Gait, Safety, Therapeutic Exercise, Transfers Treatment Duration: Mar 29, 2021 Frequency: 6 times per week Estimated Hrs Per Day: .5 hour per day Patient and/or Family Agrees t: Yes Safety Risks/Education Patient Education: Correct Positioning, Safety Issues Teaching Recipient: Patient Teaching Methods: Demonstration, Discussion Response to Teaching: Reinforcement Needed Time/GCodes Time In: 1026 Time Out: 1044 Total Billed Treatment Time: 18 Total Billed Treatment 1 visit FA 18' MARK RYAN PT Mar 19, 2021 10:51
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
[2021-03-19 11:48] VITALS: BP 155/85
[2021-03-19] MEDS: ENOXAPARIN 40 MG/0.4 ML (LOVENOX) SYR SC SCH (12:42)
[2021-03-19 16:00] VITALS: BP 124/61
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
[2021-03-19] MEDS: TAMSULOSIN 0.4 MG (FLOMAX) CAP PO SCH (17:52)
[2021-03-19 20:00] VITALS: BP 102/69
[2021-03-20] VITALS (7 sets, daily range): BP systolic 130–153; BP diastolic 80–89
[2021-03-20] MEDS: RT-ALBUTEROL SULF 2.5 MG/3 ML PRE-MIX VIAL INH SCH ×3 (02:09→15:15)
[2021-03-20] MEDS: CATHETER FLUSH 10 ML SYR IV SCH ×3 (05:51→20:14)
[2021-03-20 05:56] LABS: BASOPHILS % (AUTO) 0 % (0-10); EOSINOPHILS # (AUTO) 0.2 10^3/uL (0.0-0.3); EOSINOPHILS % (AUTO) 2 % (0-10); HEMATOCRIT 30 % (40-54); HEMOGLOBIN 9.5 g/dL (13.3-17.7); LYMPHOCYTES # (AUTO) 1.8 10^3/uL (1.0-4.0); LYMPHOCYTES % (AUTO) 15 % (12-44); MEAN CORPUSCULAR HEMOGLOBIN 29 pg (25-34); MEAN CORPUSCULAR HGB CONC 32 g/dL (32-36); MEAN CORPUSCULAR VOLUME 91 fL (80-99); MEAN PLATELET VOLUME 11.5 fL (9.0-12.2); MONOCYTES # (AUTO) 0.9 10^3/uL (0.0-1.0); MONOCYTES % (AUTO) 8 % (0-12); NEUTROPHILS # (AUTO) 8.7 10^3/uL (1.8-7.8); NEUTROPHILS % (AUTO) 72 % (42-75); PLATELET COUNT 217 10^3/uL (130-400); WHITE BLOOD COUNT 12.1 10^3/uL (4.3-11.0)
[2021-03-20 06:00] LABS: CHLORIDE 101 MMOL/L (98-107); POTASSIUM 4.1 MMOL/L (3.6-5.0); SODIUM 138 MMOL/L (135-145)
[2021-03-20 06:02] LABS: CALCIUM 8.8 MG/DL (8.5-10.1); GLUCOSE 118 MG/DL (70-105)
[2021-03-20 06:04] LABS: CARBON DIOXIDE 24 MMOL/L (21-32)
[2021-03-20 06:06] LABS: CREATININE SERUM 0.68 MG/DL (0.60-1.30); GFR ESTIMATED > 60
[2021-03-20 06:07] LABS: BUN/CREATININE RATIO 28
[2021-03-20] MEDS: BETHANECHOL 25 MG (URECHOLINE) TAB PO SCH ×4 (06:52→20:14)
[2021-03-20] MEDS: CEFDINIR 300 MG (OMNICEF) CAP PO SCH ×2 (08:21→20:13)
[2021-03-20] MEDS: BISACODYL 10 MG SUPP (DULCOLAX) PR SCH (08:21)
[2021-03-20] MEDS: PANTOPRAZOLE 40 MG (PROTONIX) TAB PO SCH (08:21)
[2021-03-20] MEDS: SENNA W/DOCUSATE (SENOKOT S) TABLET PO SCH ×2 (08:21→20:14)
[2021-03-20] MEDS: BACLOFEN 10 MG (LIORESAL) TAB PO SCH ×3 (08:21→20:13)
[2021-03-20] MEDS: LACTULOSE SYRUP 10GM/15ML (ENULOSE) 30ML UDC PO SCH ×2 (08:22→20:16)
[2021-03-20] MEDS: polyethylene glycoL POWDER 17 GM (MIRALAX) PACK PO SCH ×2 (08:22→20:13)
--- NOTE | 2021-03-20 10:34 | Occupational Ther Daily Note ---
OT Current Status-Daily Note Subjective Pt alert, lying in bed. Pt agrees to therapy. Pt c/o pain 06/22. Mental Status/Objective Patient Orientation: Person, Place, Time, Situation ADL-Treatment Therapy Code Descriptions/Definitions Functional [place] Measure: 0=Not Assessed/NA 4=Minimal Assistance 1=Total Assistance 5=Supervision or Setup 2=Maximal Assistance 6=Modified [place] 3=Moderate Assistance 7=Complete IndependenceSCALE: Activities may be completed with or without assistive devices. 6-Zwynbokgcr-vahkfwg completes the activity by him/herself with no assistance fr om a helper. 5-Set-up or Clean-up Assistance-helper sets up or cleans up; patient completes activity. [place] assists only prior to or following the activity. 4-Supervision or Touching Assistance-helper provides verbal cues and/or touching/steadying and/or contact guard assistance as patient completes activity. Assistance may be provided throughout the activity or intermittently. 3-Partial/Moderate Assistance-helper does LESS THAN HALF the effort. [place] lifts, holds or supports trunk or limbs, but provides less than half the effort. 2-Substantial/Maximal Assistance-helper does MORE THAN HALF the effort. [place] lifts or holds trunk or limbs and provides more than half the effort. 6-Ggxhmlmfw-lxvilt does ALL the effort. Patient does none of the effort to complete the activity. Or, the assistance of 2 or more helpers is required for the patient to complete the activity. If activity was not attempted, code reason: 7-Patient Refused. 9-Not Applicable-not attempted and the patient did not perform the activity before the current illness, exacerbation or injury. 10-Not Attempted due to Environmental Limitations-(lack of equipment, weather restraints, etc.). 88-Not Attempted due to Medical Conditions or Safety Concerns. Other Treatment Pt agrees to sit in recliner. Max A x2 for supine to sitting EOB. Sat EOB with SBA. Assist x2 for SPT from EOB to recliner. [place] sling placed under pt for transferring back to bed. Pt stood with max A, assist from 2nd person to cleanse buttocks. Pt made comfortable in recliner. to complete shldr taping per pt. After session, pt sitting in recliner with call light/phone in reach. All needs met in room. OT Longterm Goals Test Kitchen Home Economist Goals Time Frame: Mar 28, 2021 Eating (QC): 6 Oral Hygiene (QC): 6 Toileting Hygiene (QC): 3 Shower/Bathe Self (QC): 3 Upper Body Dressing (QC): 3 Lower Body Dressing (QC): 3 On/Off Footwear (QC): 2 Additional Goals: 1-Demonstrate ADL Tasks, 2-Verbalize Understanding, 3- ImproveStrength/[place] 1=Demonstrate adherence to instructed precautions during ADL tasks. 2=Patient will verbalize/demonstrate understanding of assistive devices/modifications for ADL. 3=Patient will improve strength/tolerance for activity to enable patient to perform ADL's. OT Education/Plan Problem List/Assessment Assessment: Decreased Activ Tolerance, Decreased UE Strength, Impaired Self- Care Skills, Restricted Funct UE ROM Pt would benefit from skilled OT services in order to increase safety and independence with ADLs in order to maximize LOF for safe return home and decrease caregiver burden. Discharge Recommendations Plan/Recommendations: Continue POC Treatment Plan/Plan of Care Patient would benefit from OT for education, treatment and training to promote independence in ADL's, mobility, safety and/or upper extremity function for ADL's. Plan of Care: ADL Retraining, Functional Mobility, UE Funct Exercise/Act Treatment Duration: Mar 28, 2021 Frequency: 5 times per week Estimated Hrs Per Day: .25 hour per day Rehab Potential: Fair Time/GCodes Start Time: 10:00 Stop Time: 10:15 Total Time Billed (hr/min): 15 Billed Treatment Time 1 visit-FA 1 (15 min) JOSIAH ESCALANTE Mar 20, 2021 10:34
--- NOTE | 2021-03-20 11:11 | Physical Therapy Daily Note ---
PT Daily Note-Current Subjective Patient in bed pre tx, agrees to PT, has 5-7/10 pain in left flank. Appearance Patient in recliner post tx with nurse call, phone, tray, legs elevated and left leg on pillow, has sebastien sling under him so nursing can get him back to bed easily. Mental Status Patient Orientation: Person, Place, Situation Transfers SCALE: Activities may be completed with or without assistive devices. 3-Gwkzwrekrr-yrklfvc completes the activity by him/herself with no assistance from a helper. 5-Set-up or Clean-up Assistance-helper sets up or cleans up; patient completes activity. [place] assists only prior to or following the activity. 4-Supervision or Touching Assistance-helper provides verbal cues and/or touching/steadying and/or contact guard assistance as patient completes activity. Assistance may be provided throughout the activity or intermittently. 3-Partial/Moderate Assistance-helper does LESS THAN HALF the effort. [place] lifts, holds or supports trunk or limbs, but provides less than half the effort. 2-Substantial/Maximal Assistance-helper does MORE THAN HALF the effort. [place] lifts or holds trunk or limbs and provides more than half the effort. 4-Ldidpszja-lvoumj does ALL the effort. Patient does none of the effort to complete the activity. Or, the assistance of 2 or more helpers is required for the patient to complete the activity. If activity was not attempted, code reason: 7-Patient Refused. 9-Not Applicable-not attempted and the patient did not perform the activity before the current illness, exacerbation or injury. 10-Not Attempted due to Environmental Limitations-(lack of equipment, weather restraints, etc.). 88-Not Attempted due to Medical Conditions or Safety Concerns. Roll Left & Right (QC): 2 Lying to Sitting/Side of Bed(Q: 1 Sit to Stand (QC): 1 Chair/Jbg-si-Zvksa Xfer(QC): 1 supine to sit, sit to stand, and stand pivot transfer all with assist of 2 Weight Bearing Right Lower Extremity: Right Full Weight Bearing Left Lower Extremity: Left Weight Bearing/Tolerated Exercises Seated Therapy Exercises: Ankle pumps, Long arc quads Seated Reps: 20 (PROM on left leg) Treatments bed mobility and transfers, LE ROM Assessment Current Status: Fair Progress Patient was able to assist some with standing and transfer but still needs assist of 2 PT Short Term Goals Short Term Goals Time Frame: Mar 22, 2021 Roll Left & Right: 3 Sit to lyin Lying to sitting on side of be: 3 Sit to stand: 3 PT Alf Goals Alf Goals PT Mobility Specialist Goals Time Frame: Mar 29, 2021 Roll Left & Right (QC): 3 Sit to Lying (QC): 3 Lying-Sitting on Side/Bed(QC): 3 Sit to Stand (QC): 3 Chair/Rde-nn-Hfqkm Xfer(QC): 2 Toilet Transfer (QC): 2 Car Transfer (QC): 9 Does the Patient Walk: No and Walking Goal NOT indicated Walk 10 feet (QC): 9 Walk 50ft with 2 Turns (QC): 9 Walk 150 ft (QC): 9 Walking 10ft on Uneven Surface: 9 1 Step (curb) (QC): 9 4 Steps (QC): 9 12 Steps (QC): 9 Picking up an Object (QC): 9 Does the Pt use WC or Scooter?: Yes Wheel 50 feet with 2 turns (QC: 6 Type: Manual Wheel 150 feet: 6 Type: Manual PT Plan Problem List Problem List: Activity Tolerance, Functional Strength, Safety, Balance, Gait, Transfer, Bed Mobility, ROM Treatment/Plan Treatment Plan: Continue Plan of Care Treatment Plan: Bed Mobility, Education, Functional Activity [place], Functional Strength, Gait, Safety, Therapeutic Exercise, Transfers Treatment Duration: Mar 29, 2021 Frequency: 6 times per week Estimated Hrs Per Day: .5 hour per day Patient and/or Family Agrees t: Yes Safety Risks/Education Patient Education: Transfer Techniques, Correct Positioning, Safety Issues Teaching Recipient: Patient Teaching Methods: Demonstration, Discussion Response to Teaching: Reinforcement Needed Time/GCodes Time In: 1000 Time Out: 1015 Total Billed Treatment Time: 15 Total Billed Treatment 1 visit FA 15' MARK RYAN PT Mar 20, 2021 11:11
[2021-03-20] MEDS: ENOXAPARIN 40 MG/0.4 ML (LOVENOX) SYR SC SCH (12:01)
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
[2021-03-20] MEDS ORDERED: RT-ALBUTEROL SULF 2.5 MG/3 ML PRE-MIX VIAL INH PRN (15:15)
[2021-03-20] MEDS: TAMSULOSIN 0.4 MG (FLOMAX) CAP PO SCH (17:17)
--- NOTE | 2021-03-20 19:13 | Diagnostic Imaging Report ---
CLINICAL HISTORY: Left leg pain. COMPARISON: 03/14/2021. TECHNIQUE: 4 views of the left femur. FINDINGS: Acute comminuted transverse fracture seen involving the distal diaphysis of the left femur. There is 5.6 cm of overriding. A butterfly fragment is visualized lateral to the more proximal fracture fragment. IMPRESSION: Acute comminuted transverse fracture involving the distal diaphysis of the left femur with 5.6 cm of overriding. Dictated by: Dictated on workstation # [id number]
[2021-03-21] VITALS (14 sets, daily range): BP systolic 103–161; BP diastolic 56–89
[2021-03-21] MEDS ORDERED: ACETAMINOPHEN 500 MG TAB (TYLENOL) ONE (01:01)
[2021-03-21] MEDS: HYDROmorphone 2 MG/ML VIAL (DILAUDID) IVP PRN ×2 (02:07→05:19)
[2021-03-21] MEDS: BETHANECHOL 25 MG (URECHOLINE) TAB PO SCH ×4 (04:39→20:15)
[2021-03-21] MEDS: CATHETER FLUSH 10 ML SYR IV SCH ×3 (05:19→20:15)
[2021-03-21] MEDS ORDERED: ceFAZolin 2 GM IV Premixed 50 ML IV ONE (06:45)
[2021-03-21] MEDS: BISACODYL 10 MG SUPP (DULCOLAX) PR SCH (09:08)
[2021-03-21] MEDS: SENNA W/DOCUSATE (SENOKOT S) TABLET PO SCH ×2 (09:08→20:15)
[2021-03-21] MEDS: PANTOPRAZOLE 40 MG (PROTONIX) TAB PO SCH (09:09)
[2021-03-21] MEDS: LACTULOSE SYRUP 10GM/15ML (ENULOSE) 30ML UDC PO SCH ×2 (09:10→20:15)
[2021-03-21] MEDS: BACLOFEN 10 MG (LIORESAL) TAB PO SCH ×3 (09:10→20:15)
[2021-03-21] MEDS: polyethylene glycoL POWDER 17 GM (MIRALAX) PACK PO SCH ×2 (09:10→20:15)
--- NOTE | 2021-03-21 09:20 | Occ Therapy Progress Note ---
Therapy Progress Note Pt on hold today. Pt to have surgery on today. Will check on pt Wednesday to see if pt is able to participate in skilled therapy. JOSIAH ESCALANTE Mar 21, 2021 09:20
--- NOTE | 2021-03-21 09:43 | Physical Therapy Progress Note ---
Therapy Progress Note Patient is currently on Hold secondary to left femur fracture. Patient to have surgery to repair this afternoon/evening. PT will reassess in a.hollis. [place] KUMAR PT Mar 21, 2021 09:43
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
[2021-03-21] MEDS ORDERED: NEOSTIGMINE 3 MG/3 ML VIAL ONE (10:54)
[2021-03-21] MEDS ORDERED: proPOfol 200 MG/20 ML (DIPRIVAN) VIAL IV ONE (10:54)
[2021-03-21] MEDS ORDERED: LIDOCAINE PF 2% 5 ML (XYLOCAINE) VIAL ONE (10:54)
[2021-03-21] MEDS ORDERED: MIDAZOLAM 2 MG/2 ML (VERSED) VIAL ONE (10:54)
[2021-03-21] MEDS ORDERED: ONDANSETRON 4 MG/2 ML (SDV) Z0FRAN ONE (10:54)
[2021-03-21] MEDS ORDERED: GLYCOPYRROLATE 0.2 MG/ML (ROBINUL) 2 ML VIAL ONE (10:54)
[2021-03-21] MEDS ORDERED: ROCURONIUM 10 MG/ML 5 ML SYRINGE IV ONE ×3 (10:54→12:30)
[2021-03-21] MEDS ORDERED: fentaNYL INJ 100 MCG/2 ML AMP ONE (10:54)
[2021-03-21] MEDS ORDERED: ceFAZolin 2 GM IV Premixed 50 ML ONE (10:58)
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
[2021-03-21] MEDS: LACTATED RINGERS 1,000 ML IV PRN ×2 (11:15→13:50)
--- NOTE | 2021-03-21 11:17 | Progress Note-Pre Operative ---
Pre-Operative Progress Note H&P Reviewed The H&P was reviewed, patient examined and no changes noted. Date Seen by Provider: Mar 21, 2021 Time Seen by Provider: 11:10 Date H&P Reviewed: Mar 21, 2021 Time H&P Reviewed: 07:11 Pre-Operative Diagnosis: left femoral shaft fracture, closed, displaced EKSHA ARMIJO MD Mar 21, 2021 11:17
--- NOTE | 2021-03-21 11:18 | Progress Note-Post Operative ---
Post-Operative Progess Note Surgeon (s)/Telephony Engineer (s) Surgeon KESHA ARMIJO MD Telephony Engineer: Osei Desouza Pre-Operative Diagnosis left femoral shaft fracture, closed, displaced Post-Operative Diagnosis left femoral shaft fracture, closed, displaced Procedure & Operative Findings Date of Procedure 03/21/21 Procedure Performed/Findings left femur intramedullary nail Anesthesia Type GETA Estimated Blood Loss Estimated blood loss (mL): 1 liter Specimens/Packing Specimens Removed none Packing: none KESHA ARMIJO MD Mar 21, 2021 11:18
[2021-03-21] MEDS ORDERED: ACETAMINOPHEN 325 MG TABLET PO PRN (11:30)
[2021-03-21] MEDS ORDERED: HYDROmorphone 2 MG/ML VIAL (DILAUDID) IVP PRN (11:30)
[2021-03-21] MEDS ORDERED: ONDANSETRON 4 MG/2 ML (SDV) Z0FRAN IVP PRN ×2 (11:30→15:00)
[2021-03-21] MEDS: ENOXAPARIN 40 MG/0.4 ML (LOVENOX) SYR SC SCH (11:32)
[2021-03-21] MEDS ORDERED: ceFAZolin INJECTION 2,000 MG ONE (11:41)
[2021-03-21] MEDS ORDERED: HYDROmorphone 2 MG/ML VIAL (DILAUDID) ONE (11:57)
[2021-03-21] MEDS ORDERED: PHENYLEPHRINE INJ 10 MG/ML (FOR DRIP KITS ONLY) ONE (12:41)
[2021-03-21] MEDS ORDERED: BUPIVACAINE 0.5% 30 ML (SENSORCAINE) VIAL ONE (14:16)
[2021-03-21] MEDS ORDERED: SEVOFLURANE (ULTANE) 15 ML INHAL SOLN ONE (14:51)
[2021-03-21] MEDS ORDERED: morphine INJ 10 MG/ML 1ML (SYR OR VIAL) IVP ONE (15:00)
[2021-03-21] MEDS ORDERED: HYDROmorphone 2 MG/ML VIAL (DILAUDID) IV ONE (15:00)
[2021-03-21] MEDS: oxyCODONE/APAP 5/325MG (PERCOCET 5) TABLET PO PRN ×2 (15:53→20:14)
--- NOTE | 2021-03-21 15:55 | Diagnostic Imaging Report ---
INDICATION: Left femur fracture COMPARISON: None. IMPRESSION: Six fluoroscopic images of the left femur were provided for Dr. Whitmore. Fluoroscopic time 156 seconds. Dictated by: Dictated on workstation # [id number]
[2021-03-21] MEDS: ceFAZolin INJECTION 1,000 MG in WATER (STERILE) FOR INJECTION 10 ML IV SCH (18:28)
[2021-03-21] MEDS: TAMSULOSIN 0.4 MG (FLOMAX) CAP PO SCH (18:28)
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
[2021-03-22] VITALS (8 sets, daily range): BP systolic 109–155; BP diastolic 60–82
[2021-03-22] MEDS: ceFAZolin INJECTION 1,000 MG in WATER (STERILE) FOR INJECTION 10 ML IV SCH (02:44)
[2021-03-22] MEDS: CATHETER FLUSH 10 ML SYR IV SCH ×3 (02:45→20:30)
[2021-03-22 05:29] LABS: BASOPHILS % (AUTO) 0 % (0-10); EOSINOPHILS % (AUTO) 0 % (0-10); HEMATOCRIT 22 % (40-54); HEMOGLOBIN 7.2 g/dL (13.3-17.7); LYMPHOCYTES # (AUTO) 2.7 10^3/uL (1.0-4.0); LYMPHOCYTES % (AUTO) 16 % (12-44); MEAN CORPUSCULAR HEMOGLOBIN 29 pg (25-34); MEAN CORPUSCULAR HGB CONC 32 g/dL (32-36); MEAN CORPUSCULAR VOLUME 91 fL (80-99); MEAN PLATELET VOLUME 11.2 fL (9.0-12.2); MONOCYTES % (AUTO) 6 % (0-12); NEUTROPHILS # (AUTO) 12.2 10^3/uL (1.8-7.8); NEUTROPHILS % (AUTO) 73 % (42-75); PLATELET COUNT 295 10^3/uL (130-400); WHITE BLOOD COUNT 16.7 10^3/uL (4.3-11.0)
[2021-03-22] MEDS: BETHANECHOL 25 MG (URECHOLINE) TAB PO SCH ×4 (05:38→20:29)
[2021-03-22 05:40] LABS: CHLORIDE 100 MMOL/L (98-107); POTASSIUM 4.5 MMOL/L (3.6-5.0); SODIUM 135 MMOL/L (135-145)
[2021-03-22 05:41] LABS: CALCIUM 7.8 MG/DL (8.5-10.1)
[2021-03-22 05:42] LABS: GLUCOSE 135 MG/DL (70-105)
[2021-03-22 05:43] LABS: CARBON DIOXIDE 24 MMOL/L (21-32)
[2021-03-22 05:46] LABS: CREATININE SERUM 0.76 MG/DL (0.60-1.30); GFR ESTIMATED > 60
[2021-03-22 05:47] LABS: BUN/CREATININE RATIO 26
[2021-03-22] MEDS: BACLOFEN 10 MG (LIORESAL) TAB PO SCH ×3 (08:39→20:30)
[2021-03-22] MEDS: PANTOPRAZOLE 40 MG (PROTONIX) TAB PO SCH (08:39)
[2021-03-22] MEDS: SENNA W/DOCUSATE (SENOKOT S) TABLET PO SCH ×2 (08:39→20:30)
[2021-03-22] MEDS: polyethylene glycoL POWDER 17 GM (MIRALAX) PACK PO SCH ×2 (08:40→20:30)
[2021-03-22] MEDS: ENOXAPARIN 40 MG/0.4 ML (LOVENOX) SYR SC SCH ×2 (08:40→12:58)
[2021-03-22] MEDS: LACTULOSE SYRUP 10GM/15ML (ENULOSE) 30ML UDC PO SCH ×2 (09:00→20:29)
[2021-03-22] MEDS: BISACODYL 10 MG SUPP (DULCOLAX) PR SCH (10:07)
--- NOTE | 2021-03-22 11:06 | Progress Note ---
Standard Progress Note Progress Notes/Assess & Plan Date Seen by a Provider: Mar 22, 2021 Time Seen by a Provider: 11:04 Progress/Assessment & Plan no complaints Vital Signs Date Time Temp Pulse Resp B/P (MAP) Pulse Ox O2 Delivery O2 Flow Rate FiO2 03/22/21 08:00 Room Air 03/22/21 08:00 37.6 111 16 123/74 (90) 95 Room Air 03/22/21 07:47 Room Air 03/22/21 03:23 37.5 106 18 124/77 (93) 95 Room Air 03/21/21 23:25 36.0 119 20 136/86 (103) 95 Room Air 03/21/21 21:18 Room Air 03/21/21 20:57 36.0 116 21 114/77 (89) 95 Room Air 03/21/21 19:48 Room Air 03/21/21 16:28 36.4 113 20 103/73 (83) 95 Room Air 03/21/21 15:25 Room Air 03/21/21 15:25 36.4 18 132/68 (89) 93 Room Air 03/21/21 15:20 20 136/65 (88) 93 Room Air 03/21/21 15:14 Room Air 03/21/21 15:10 18 134/57 (82) 93 Room Air 03/21/21 15:08 Room Air 03/21/21 15:04 OxyMask 3 03/21/21 15:02 OxyMask 6 03/21/21 15:00 18 122/86 (98) 95 OxyMask 3 03/21/21 14:52 OxyMask 6 03/21/21 14:50 18 120/89 (99) 98 OxyMask 6 03/21/21 14:50 18 120/89 (99) 98 OxyMask 6 03/21/21 14:45 OxyMask 6 03/21/21 14:40 18 116/72 (87) 96 OxyMask 6 03/21/21 14:34 36.8 16 108/56 (73) 97 OxyMask 6 03/21/21 14:34 OxyMask 6 I & O 03/22/21 07:00 Intake Total 4000 ml Output Total 1500 ml Balance 2500 ml Laboratory Tests Test 03/22/21 05:13 Range/Units White Blood Count 16.7 H 4.3-11.0 10^3/uL Red Blood Count 2.45 L 4.30-5.52 10^6/uL Hemoglobin 7.2 #L 13.3-17.7 g/dL Hematocrit 22 L 40-54 % Mean Corpuscular Volume 91 80-99 fL Mean Corpuscular Hemoglobin 29 25-34 pg Mean Corpuscular Hemoglobin Concent 32 32-36 g/dL Red Cell Distribution Width 14.9 H 10.0-14.5 % Platelet Count 295 130-400 10^3/uL Mean Platelet Volume 11.2 9.0-12.2 fL Immature Granulocyte % (Auto) 5 % Neutrophils (%) (Auto) 73 42-75 % Lymphocytes (%) (Auto) 16 12-44 % Monocytes (%) (Auto) 6 0-12 % Eosinophils (%) (Auto) 0 0-10 % Basophils (%) (Auto) 0 0-10 % Neutrophils # (Auto) 12.2 H 1.8-7.8 10^3/uL Lymphocytes # (Auto) 2.7 1.0-4.0 10^3/uL Monocytes # (Auto) 1.0 0.0-1.0 10^3/uL Eosinophils # (Auto) 0.0 0.0-0.3 10^3/uL Basophils # (Auto) 0.0 0.0-0.1 10^3/uL Immature Granulocyte # (Auto) 0.8 H 0.0-0.1 10^3/uL Sodium Level 135 135-145 MMOL/L Potassium Level 4.5 3.6-5.0 MMOL/L Chloride Level 100 98-107 MMOL/L Carbon Dioxide Level 24 21-32 MMOL/L Anion Gap 11 5-14 MMOL/L Blood Urea Nitrogen 20 H 7-18 MG/DL Creatinine 0.76 0.60-1.30 MG/DL Estimat Glomerular Filtration Rate > 60 BUN/Creatinine Ratio 26 Glucose Level 135 H 70-105 MG/DL Calcium Level 7.8 L 8.5-10.1 MG/DL LLE--dressing intact. brisk cap refill distally s/p L femur IM candelario WB for transfer with support KESHA ARMIJO MD Mar 22, 2021 11:06
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
--- NOTE | 2021-03-22 13:19 | Physical Therapy Daily Note ---
PT Daily Note-Current Subjective Pt reports (L) LE pain is limiting his ability to sleep or position himself. Pain Numeric Pain Scale: 7 Location: Left Location Body Site: Hip Pain Description: Sharp Mental Status Patient Orientation: Person, Place, Time, Situation Attachments: Knee Immobilizer Transfers SCALE: Activities may be completed with or without assistive devices. 6-Unjbycqrtc-auqxogd completes the activity by him/herself with no assistance from a helper. 5-Set-up or Clean-up Assistance-helper sets up or cleans up; patient completes activity. Scott assists only prior to or following the activity. 4-Supervision or Touching Assistance-helper provides verbal cues and/or touching/steadying and/or contact guard assistance as patient completes activity. Assistance may be provided throughout the activity or intermittently. 3-Partial/Moderate Assistance-helper does LESS THAN HALF the effort. Scott lifts, holds or supports trunk or limbs, but provides less than half the effort. 2-Substantial/Maximal Assistance-helper does MORE THAN HALF the effort. Scott lifts or holds trunk or limbs and provides more than half the effort. 7-Xbgiecztb-woizuf does ALL the effort. Patient does none of the effort to complete the activity. Or, the assistance of 2 or more helpers is required for the patient to complete the activity. If activity was not attempted, code reason: 7-Patient Refused. 9-Not Applicable-not attempted and the patient did not perform the activity before the current illness, exacerbation or injury. 10-Not Attempted due to Environmental Limitations-(lack of equipment, weather restraints, etc.). 88-Not Attempted due to Medical Conditions or Safety Concerns. Roll Left & Right (QC): 1 Lying to Sitting/Side of Bed(Q: 7 Pt was not able to tolerate moving the (L) LE enough to get to sitting position. Pt had poor tolerance of (L) LE passive ROM. Weight Bearing Right Lower Extremity: Right Full Weight Bearing Left Lower Extremity: Left Partial Weight Bearing Gait Training Does the Patient Walk?: No and Walking Goal NOT indicated Wheelchair Training Does the Pt Use a Wheelchair?: Yes Exercises Supine Ex: LE Protocol Supine Reps: 15 Very poor tolerance to (L) LE PROM. Pt was able to perform the (R) LE exercises (I). Assessment Current Status: Poor Progress Pt underwent (L) distal femur ORIF yesterday and is very limited with his tolerance to (L) LE ROM. We will return tomorrow to work with him to gain ROM tolerance. PT Short Term Goals Short Term Goals Time Frame: Mar 22, 2021 Roll Left & Right: 3 Sit to lyin Lying to sitting on side of be: 3 Sit to stand: 3 PT Nursing Home Goals Sap Basis Goals PT Sap Basis Goals Time Frame: Mar 29, 2021 Roll Left & Right (QC): 3 Sit to Lying (QC): 3 Lying-Sitting on Side/Bed(QC): 3 Sit to Stand (QC): 3 Chair/Bke-ae-Paxzr Xfer(QC): 2 Toilet Transfer (QC): 2 Car Transfer (QC): 9 Does the Patient Walk: No and Walking Goal NOT indicated Walk 10 feet (QC): 9 Walk 50ft with 2 Turns (QC): 9 Walk 150 ft (QC): 9 Walking 10ft on Uneven Surface: 9 1 Step (curb) (QC): 9 4 Steps (QC): 9 12 Steps (QC): 9 Picking up an Object (QC): 9 Does the Pt use WC or Scooter?: Yes Wheel 50 feet with 2 turns (QC: 6 Type: Manual Wheel 150 feet: 6 Type: Manual PT Plan Treatment/Plan Treatment Plan: Continue Plan of Care Treatment Plan: Bed Mobility, Education, Functional Activity Georgiana, Functional Strength, Gait, Safety, Therapeutic Exercise, Transfers Treatment Duration: Mar 29, 2021 Frequency: 6 times per week Estimated Hrs Per Day: .5 hour per day Patient and/or Family Agrees t: Yes Time/GCodes Time In: 0850 Time Out: 0905 Total Billed Treatment Time: 15 Total Billed Treatment 1, ex 15 CHIP MIGUEL PT Mar 22, 2021 13:19
[2021-03-22] MEDS ORDERED: NS IV 500 ML 500 ML ONE (13:51)
[2021-03-22] MEDS: oxyCODONE/APAP 5/325MG (PERCOCET 5) TABLET PO PRN ×2 (14:45→18:31)
--- NOTE | 2021-03-22 15:01 | Anesthesia-General Post-Op ---
General Patient Condition Mental Status/LOC: Same as Preop Cardiovascular: Satisfactory Nausea/Vomiting: Absent Respiratory: Satisfactory Pain: Controlled Complications: Absent Post Op Complications Complications None Follow Up Care/Instructions Patient Instructions None needed. Anesthesia/Patient Condition Patient Condition Patient is doing well, no complaints, stable vital signs, no apparent adverse anesthesia problems. No complications reported per nursing. HECTOR PANDYA CRNA Mar 22, 2021 15:01
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
[2021-03-22] MEDS: TAMSULOSIN 0.4 MG (FLOMAX) CAP PO SCH (18:31)
[2021-03-23 03:18] VITALS: BP 126/81
[2021-03-23] MEDS: BETHANECHOL 25 MG (URECHOLINE) TAB PO SCH ×4 (04:24→17:17)
[2021-03-23] MEDS: oxyCODONE/APAP 5/325MG (PERCOCET 5) TABLET PO PRN (04:24)
[2021-03-23] MEDS: CATHETER FLUSH 10 ML SYR IV SCH ×3 (04:25→21:04)
[2021-03-23 06:12] LABS: BASOPHILS % (AUTO) 0 % (0-10); EOSINOPHILS # (AUTO) 0.2 10^3/uL (0.0-0.3); EOSINOPHILS % (AUTO) 1 % (0-10); HEMATOCRIT 23 % (40-54); HEMOGLOBIN 7.5 g/dL (13.3-17.7); LYMPHOCYTES # (AUTO) 1.5 10^3/uL (1.0-4.0); LYMPHOCYTES % (AUTO) 11 % (12-44); MEAN CORPUSCULAR HEMOGLOBIN 29 pg (25-34); MEAN CORPUSCULAR HGB CONC 32 g/dL (32-36); MEAN CORPUSCULAR VOLUME 91 fL (80-99); MEAN PLATELET VOLUME 10.8 fL (9.0-12.2); MONOCYTES # (AUTO) 0.7 10^3/uL (0.0-1.0); MONOCYTES % (AUTO) 5 % (0-12); NEUTROPHILS % (AUTO) 78 % (42-75); PLATELET COUNT 237 10^3/uL (130-400)
[2021-03-23 06:31] LABS: CHLORIDE 99 MMOL/L (98-107); POTASSIUM 3.9 MMOL/L (3.6-5.0); SODIUM 133 MMOL/L (135-145)
[2021-03-23 06:32] LABS: CALCIUM 7.9 MG/DL (8.5-10.1)
[2021-03-23 06:33] LABS: GLUCOSE 130 MG/DL (70-105)
[2021-03-23 06:34] LABS: CARBON DIOXIDE 25 MMOL/L (21-32)
[2021-03-23 06:37] LABS: BUN/CREATININE RATIO 23; CREATININE SERUM 0.65 MG/DL (0.60-1.30); GFR ESTIMATED > 60
[2021-03-23 08:00] VITALS: BP 134/78
[2021-03-23] MEDS: ENOXAPARIN 40 MG/0.4 ML (LOVENOX) SYR SC SCH ×2 (08:02→08:53)
[2021-03-23] MEDS: BACLOFEN 10 MG (LIORESAL) TAB PO SCH ×3 (09:19→21:03)
[2021-03-23] MEDS: LACTULOSE SYRUP 10GM/15ML (ENULOSE) 30ML UDC PO SCH ×2 (09:19→21:03)
[2021-03-23] MEDS: PANTOPRAZOLE 40 MG (PROTONIX) TAB PO SCH (09:20)
[2021-03-23] MEDS: SENNA W/DOCUSATE (SENOKOT S) TABLET PO SCH ×2 (09:20→21:03)
[2021-03-23] MEDS: BISACODYL 10 MG SUPP (DULCOLAX) PR SCH (09:20)
[2021-03-23] MEDS: polyethylene glycoL POWDER 17 GM (MIRALAX) PACK PO SCH ×2 (09:20→21:03)
--- NOTE | 2021-03-23 10:58 | Physical Therapy Daily Note ---
PT Daily Note-Current Subjective Pt notes (L) distal femur pain is higher today than yesterday. Pain Numeric Pain Scale: 7 Location: Left Location Body Site: Knee Pain Description: Stabbing, Sharp Mental Status Patient Orientation: Person, Place, Time, Situation Transfers SCALE: Activities may be completed with or without assistive devices. 1-Tolgaecfpo-uqeqexm completes the activity by him/herself with no assistance from a helper. 5-Set-up or Clean-up Assistance-helper sets up or cleans up; patient completes activity. Hines assists only prior to or following the activity. 4-Supervision or Touching Assistance-helper provides verbal cues and/or touching/steadying and/or contact guard assistance as patient completes activity. Assistance may be provided throughout the activity or intermittently. 3-Partial/Moderate Assistance-helper does LESS THAN HALF the effort. Hines lifts, holds or supports trunk or limbs, but provides less than half the effort. 2-Substantial/Maximal Assistance-helper does MORE THAN HALF the effort. Hines lifts or holds trunk or limbs and provides more than half the effort. 4-Wxqrqusgw-lvrvmz does ALL the effort. Patient does none of the effort to complete the activity. Or, the assistance of 2 or more helpers is required for the patient to complete the activity. If activity was not attempted, code reason: 7-Patient Refused. 9-Not Applicable-not attempted and the patient did not perform the activity before the current illness, exacerbation or injury. 10-Not Attempted due to Environmental Limitations-(lack of equipment, weather restraints, etc.). 88-Not Attempted due to Medical Conditions or Safety Concerns. Roll Left & Right (QC): 1 Sit to Lying (QC): 1 Lying to Sitting/Side of Bed(Q: 1 Poor tolerance to sitting edge of bed due to (L) thigh pain and intermittent (B) rib pain. Weight Bearing Right Lower Extremity: Right Full Weight Bearing Left Lower Extremity: Left Partial Weight Bearing Gait Training Does the Patient Walk?: No and Walking Goal NOT indicated Exercises Supine Ex: LE Protocol Supine Reps: 15 Bed exercises are total assist for the (L) and (I) on the (R). Assessment Current Status: Good Progress Able to sit edge of bed for 1 minute with total assist to get in position and maintain position. PT Short Term Goals Short Term Goals Time Frame: Mar 22, 2021 Roll Left & Right: 3 Sit to lyin Lying to sitting on side of be: 3 Sit to stand: 3 PT Group Home Goals Group Home Goals PT Group Home Goals Time Frame: Mar 29, 2021 Roll Left & Right (QC): 3 Sit to Lying (QC): 3 Lying-Sitting on Side/Bed(QC): 3 Sit to Stand (QC): 3 Chair/Vaw-si-Xyhvn Xfer(QC): 2 Toilet Transfer (QC): 2 Car Transfer (QC): 9 Does the Patient Walk: No and Walking Goal NOT indicated Walk 10 feet (QC): 9 Walk 50ft with 2 Turns (QC): 9 Walk 150 ft (QC): 9 Walking 10ft on Uneven Surface: 9 1 Step (curb) (QC): 9 4 Steps (QC): 9 12 Steps (QC): 9 Picking up an Object (QC): 9 Does the Pt use WC or Scooter?: Yes Wheel 50 feet with 2 turns (QC: 6 Type: Manual Wheel 150 feet: 6 Type: Manual PT Plan Treatment/Plan Treatment Plan: Continue Plan of Care Treatment Plan: Bed Mobility, Education, Functional Activity Georgiana, Functional Strength, Gait, Safety, Therapeutic Exercise, Transfers Treatment Duration: Mar 29, 2021 Frequency: 6 times per week Estimated Hrs Per Day: .5 hour per day Patient and/or Family Agrees t: Yes Time/GCodes Time In: 1040 Time Out: 1055 Total Billed Treatment Time: 15 Total Billed Treatment 1, ex 15 CHIP MIGUEL PT Mar 23, 2021 10:58
--- NOTE | 2021-03-23 11:12 | Progress Note ---
Standard Progress Note Progress Notes/Assess & Plan Date Seen by a Provider: Mar 23, 2021 Time Seen by a Provider: 11:11 Progress/Assessment & Plan no complaints Vital Signs Date Time Temp Pulse Resp B/P (MAP) Pulse Ox O2 Delivery O2 Flow Rate FiO2 03/22/21 08:00 Room Air 03/22/21 08:00 37.6 111 16 123/74 (90) 95 Room Air 03/22/21 07:47 Room Air 03/22/21 03:23 37.5 106 18 124/77 (93) 95 Room Air 03/21/21 23:25 36.0 119 20 136/86 (103) 95 Room Air 03/21/21 21:18 Room Air 03/21/21 20:57 36.0 116 21 114/77 (89) 95 Room Air 03/21/21 19:48 Room Air 03/21/21 16:28 36.4 113 20 103/73 (83) 95 Room Air 03/21/21 15:25 Room Air 03/21/21 15:25 36.4 18 132/68 (89) 93 Room Air 03/21/21 15:20 20 136/65 (88) 93 Room Air 03/21/21 15:14 Room Air 03/21/21 15:10 18 134/57 (82) 93 Room Air 03/21/21 15:08 Room Air 03/21/21 15:04 OxyMask 3 03/21/21 15:02 OxyMask 6 03/21/21 15:00 18 122/86 (98) 95 OxyMask 3 03/21/21 14:52 OxyMask 6 03/21/21 14:50 18 120/89 (99) 98 OxyMask 6 03/21/21 14:50 18 120/89 (99) 98 OxyMask 6 03/21/21 14:45 OxyMask 6 03/21/21 14:40 18 116/72 (87) 96 OxyMask 6 03/21/21 14:34 36.8 16 108/56 (73) 97 OxyMask 6 03/21/21 14:34 OxyMask 6 I & O 03/22/21 07:00 Intake Total 4000 ml Output Total 1500 ml Balance 2500 ml Laboratory Tests Test 03/22/21 05:13 Range/Units White Blood Count 16.7 H 4.3-11.0 10^3/uL Red Blood Count 2.45 L 4.30-5.52 10^6/uL Hemoglobin 7.2 #L 13.3-17.7 g/dL Hematocrit 22 L 40-54 % Mean Corpuscular Volume 91 80-99 fL Mean Corpuscular Hemoglobin 29 25-34 pg Mean Corpuscular Hemoglobin Concent 32 32-36 g/dL Red Cell Distribution Width 14.9 H 10.0-14.5 % Platelet Count 295 130-400 10^3/uL Mean Platelet Volume 11.2 9.0-12.2 fL Immature Granulocyte % (Auto) 5 % Neutrophils (%) (Auto) 73 42-75 % Lymphocytes (%) (Auto) 16 12-44 % Monocytes (%) (Auto) 6 0-12 % Eosinophils (%) (Auto) 0 0-10 % Basophils (%) (Auto) 0 0-10 % Neutrophils # (Auto) 12.2 H 1.8-7.8 10^3/uL Lymphocytes # (Auto) 2.7 1.0-4.0 10^3/uL Monocytes # (Auto) 1.0 0.0-1.0 10^3/uL Eosinophils # (Auto) 0.0 0.0-0.3 10^3/uL Basophils # (Auto) 0.0 0.0-0.1 10^3/uL Immature Granulocyte # (Auto) 0.8 H 0.0-0.1 10^3/uL Sodium Level 135 135-145 MMOL/L Potassium Level 4.5 3.6-5.0 MMOL/L Chloride Level 100 98-107 MMOL/L Carbon Dioxide Level 24 21-32 MMOL/L Anion Gap 11 5-14 MMOL/L Blood Urea Nitrogen 20 H 7-18 MG/DL Creatinine 0.76 0.60-1.30 MG/DL Estimat Glomerular Filtration Rate > 60 BUN/Creatinine Ratio 26 Glucose Level 135 H 70-105 MG/DL Calcium Level 7.8 L 8.5-10.1 MG/DL LLE--dressing intact. brisk cap refill distally s/p L femur IM candelario WB for transfer with support Final Diagnosis sat up with PT Vital Signs Date Time Temp Pulse Resp B/P (MAP) Pulse Ox O2 Delivery O2 Flow Rate FiO2 03/23/21 08:00 36.3 95 16 134/78 (96) 94 Room Air 03/23/21 03:18 35.3 98 20 126/81 (96) 94 Room Air 03/22/21 23:16 35.0 100 18 109/79 (89) 95 Room Air 03/22/21 20:18 36.6 116 20 133/76 (95) 94 Room Air 03/22/21 19:58 Room Air 03/22/21 18:36 37.3 110 20 155/82 94 Room Air 03/22/21 15:30 37.5 114 20 144/60 94 Room Air 03/22/21 15:15 37.1 113 20 150/75 94 Room Air 03/22/21 12:00 36.8 122 20 131/78 (95) 93 Room Air I & O 03/23/21 07:00 Intake Total 2393 ml Output Total 1025 ml Balance 1368 ml Laboratory Tests Test 03/23/21 05:40 Range/Units White Blood Count 14.0 H 4.3-11.0 10^3/uL Red Blood Count 2.55 L 4.30-5.52 10^6/uL Hemoglobin 7.5 L 13.3-17.7 g/dL Hematocrit 23 L 40-54 % Mean Corpuscular Volume 91 80-99 fL Mean Corpuscular Hemoglobin 29 25-34 pg Mean Corpuscular Hemoglobin Concent 32 32-36 g/dL Red Cell Distribution Width 15.1 H 10.0-14.5 % Platelet Count 237 130-400 10^3/uL Mean Platelet Volume 10.8 9.0-12.2 fL Immature Granulocyte % (Auto) 5 % Neutrophils (%) (Auto) 78 H 42-75 % Lymphocytes (%) (Auto) 11 L 12-44 % Monocytes (%) (Auto) 5 0-12 % Eosinophils (%) (Auto) 1 0-10 % Basophils (%) (Auto) 0 0-10 % Neutrophils # (Auto) 11.0 H 1.8-7.8 10^3/uL Lymphocytes # (Auto) 1.5 1.0-4.0 10^3/uL Monocytes # (Auto) 0.7 0.0-1.0 10^3/uL Eosinophils # (Auto) 0.2 0.0-0.3 10^3/uL Basophils # (Auto) 0.0 0.0-0.1 10^3/uL Immature Granulocyte # (Auto) 0.7 H 0.0-0.1 10^3/uL Sodium Level 133 L 135-145 MMOL/L Potassium Level 3.9 3.6-5.0 MMOL/L Chloride Level 99 98-107 MMOL/L Carbon Dioxide Level 25 21-32 MMOL/L Anion Gap 9 5-14 MMOL/L Blood Urea Nitrogen 15 7-18 MG/DL Creatinine 0.65 0.60-1.30 MG/DL Estimat Glomerular Filtration Rate > 60 BUN/Creatinine Ratio 23 Glucose Level 130 H 70-105 MG/DL Calcium Level 7.9 L 8.5-10.1 MG/DL LLE--incisions clean and dry. No calf tenderness s/p L femur IM candelario transfers only LLE KESHA ARMIJO MD Mar 23, 2021 11:12
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
[2021-03-23 12:00] VITALS: BP 145/84
[2021-03-23] MEDS: HYDROcodone/APAP 5 MG/325 MG (LORTAB) TAB PO PRN (14:36)
[2021-03-23 16:36] VITALS: BP 130/68
[2021-03-23] MEDS: TAMSULOSIN 0.4 MG (FLOMAX) CAP PO SCH (17:17)
[2021-03-23] MEDS: HYDROmorphone 2 MG/ML VIAL (DILAUDID) IVP PRN (17:17)
[2021-03-23 20:10] VITALS: BP 130/78
[2021-03-23] MEDS: MELATONIN 3 MG TABLET PO PRN (21:03)
[2021-03-23 23:41] VITALS: BP 147/73
[2021-03-24 03:17] VITALS: BP 140/71
[2021-03-24] MEDS: BETHANECHOL 25 MG (URECHOLINE) TAB PO SCH ×4 (04:05→20:19)
[2021-03-24] MEDS: oxyCODONE/APAP 5/325MG (PERCOCET 5) TABLET PO PRN (04:06)
[2021-03-24] MEDS: CATHETER FLUSH 10 ML SYR IV SCH ×3 (04:09→22:00)
[2021-03-24 08:00] VITALS: BP 132/77
--- NOTE | 2021-03-24 08:04 | Progress Note ---
Standard Progress Note Progress Notes/Assess & Plan Date Seen by a Provider: Mar 24, 2021 Time Seen by a Provider: 08:03 Progress/Assessment & Plan no complaints Vital Signs Date Time Temp Pulse Resp B/P (MAP) Pulse Ox O2 Delivery O2 Flow Rate FiO2 03/22/21 08:00 Room Air 03/22/21 08:00 37.6 111 16 123/74 (90) 95 Room Air 03/22/21 07:47 Room Air 03/22/21 03:23 37.5 106 18 124/77 (93) 95 Room Air 03/21/21 23:25 36.0 119 20 136/86 (103) 95 Room Air 03/21/21 21:18 Room Air 03/21/21 20:57 36.0 116 21 114/77 (89) 95 Room Air 03/21/21 19:48 Room Air 03/21/21 16:28 36.4 113 20 103/73 (83) 95 Room Air 03/21/21 15:25 Room Air 03/21/21 15:25 36.4 18 132/68 (89) 93 Room Air 03/21/21 15:20 20 136/65 (88) 93 Room Air 03/21/21 15:14 Room Air 03/21/21 15:10 18 134/57 (82) 93 Room Air 03/21/21 15:08 Room Air 03/21/21 15:04 OxyMask 3 03/21/21 15:02 OxyMask 6 03/21/21 15:00 18 122/86 (98) 95 OxyMask 3 03/21/21 14:52 OxyMask 6 03/21/21 14:50 18 120/89 (99) 98 OxyMask 6 03/21/21 14:50 18 120/89 (99) 98 OxyMask 6 03/21/21 14:45 OxyMask 6 03/21/21 14:40 18 116/72 (87) 96 OxyMask 6 03/21/21 14:34 36.8 16 108/56 (73) 97 OxyMask 6 03/21/21 14:34 OxyMask 6 I & O 03/22/21 07:00 Intake Total 4000 ml Output Total 1500 ml Balance 2500 ml Laboratory Tests Test 03/22/21 05:13 Range/Units White Blood Count 16.7 H 4.3-11.0 10^3/uL Red Blood Count 2.45 L 4.30-5.52 10^6/uL Hemoglobin 7.2 #L 13.3-17.7 g/dL Hematocrit 22 L 40-54 % Mean Corpuscular Volume 91 80-99 fL Mean Corpuscular Hemoglobin 29 25-34 pg Mean Corpuscular Hemoglobin Concent 32 32-36 g/dL Red Cell Distribution Width 14.9 H 10.0-14.5 % Platelet Count 295 130-400 10^3/uL Mean Platelet Volume 11.2 9.0-12.2 fL Immature Granulocyte % (Auto) 5 % Neutrophils (%) (Auto) 73 42-75 % Lymphocytes (%) (Auto) 16 12-44 % Monocytes (%) (Auto) 6 0-12 % Eosinophils (%) (Auto) 0 0-10 % Basophils (%) (Auto) 0 0-10 % Neutrophils # (Auto) 12.2 H 1.8-7.8 10^3/uL Lymphocytes # (Auto) 2.7 1.0-4.0 10^3/uL Monocytes # (Auto) 1.0 0.0-1.0 10^3/uL Eosinophils # (Auto) 0.0 0.0-0.3 10^3/uL Basophils # (Auto) 0.0 0.0-0.1 10^3/uL Immature Granulocyte # (Auto) 0.8 H 0.0-0.1 10^3/uL Sodium Level 135 135-145 MMOL/L Potassium Level 4.5 3.6-5.0 MMOL/L Chloride Level 100 98-107 MMOL/L Carbon Dioxide Level 24 21-32 MMOL/L Anion Gap 11 5-14 MMOL/L Blood Urea Nitrogen 20 H 7-18 MG/DL Creatinine 0.76 0.60-1.30 MG/DL Estimat Glomerular Filtration Rate > 60 BUN/Creatinine Ratio 26 Glucose Level 135 H 70-105 MG/DL Calcium Level 7.8 L 8.5-10.1 MG/DL LLE--dressing intact. brisk cap refill distally s/p L femur IM candelario WB for transfer with support Final Diagnosis no complaints Vital Signs Date Time Temp Pulse Resp B/P (MAP) Pulse Ox O2 Delivery O2 Flow Rate FiO2 03/24/21 03:17 36.0 106 19 140/71 (94) 96 Room Air 03/23/21 23:41 36.0 112 20 147/73 (97) 95 Room Air 03/23/21 21:09 Room Air 03/23/21 20:10 36.3 114 20 130/78 (95) 96 Room Air 03/23/21 19:49 Room Air 03/23/21 16:36 36.2 112 20 130/68 (88) 94 Room Air 03/23/21 12:00 36.9 112 18 145/84 (104) 95 Room Air I & O 03/24/21 07:00 Intake Total 2288 ml Output Total 1400 ml Balance 888 ml LLE-dressing intact. No calf tenderness s/p L femur IM candelario ok to DC when cleared by Medicine KESHA ARMIJO MD Mar 24, 2021 08:04
[2021-03-24] MEDS: LACTULOSE SYRUP 10GM/15ML (ENULOSE) 30ML UDC PO SCH ×2 (09:31→20:19)
[2021-03-24] MEDS: polyethylene glycoL POWDER 17 GM (MIRALAX) PACK PO SCH ×2 (09:32→20:18)
[2021-03-24] MEDS: BACLOFEN 10 MG (LIORESAL) TAB PO SCH ×3 (09:32→20:19)
[2021-03-24] MEDS: BISACODYL 10 MG SUPP (DULCOLAX) PR SCH (09:32)
[2021-03-24] MEDS: SENNA W/DOCUSATE (SENOKOT S) TABLET PO SCH ×2 (09:32→20:18)
[2021-03-24] MEDS: PANTOPRAZOLE 40 MG (PROTONIX) TAB PO SCH (09:32)
--- NOTE | 2021-03-24 10:10 | Physical Therapy Daily Note ---
PT Daily Note-Current Subjective Patient agrees to PT. Pain Numeric Pain Scale: 5-Moderate Pain Location: Right Location Body Site: Side Pain Description: Sharp Mental Status Patient Orientation: Person, Time, Situation Transfers SCALE: Activities may be completed with or without assistive devices. 4-Tjhlekklhv-ievdpya completes the activity by him/herself with no assistance from a helper. 5-Set-up or Clean-up Assistance-helper sets up or cleans up; patient completes activity. [place] assists only prior to or following the activity. 4-Supervision or Touching Assistance-helper provides verbal cues and/or touching/steadying and/or contact guard assistance as patient completes activity. Assistance may be provided throughout the activity or intermittently. 3-Partial/Moderate Assistance-helper does LESS THAN HALF the effort. [place] lifts, holds or supports trunk or limbs, but provides less than half the effort. 2-Substantial/Maximal Assistance-helper does MORE THAN HALF the effort. [place] lifts or holds trunk or limbs and provides more than half the effort. 5-Afnbrgjcw-bnulon does ALL the effort. Patient does none of the effort to complete the activity. Or, the assistance of 2 or more helpers is required for the patient to complete the activity. If activity was not attempted, code reason: 7-Patient Refused. 9-Not Applicable-not attempted and the patient did not perform the activity before the current illness, exacerbation or injury. 10-Not Attempted due to Environmental Limitations-(lack of equipment, weather restraints, etc.). 88-Not Attempted due to Medical Conditions or Safety Concerns. Roll Left & Right (QC): 1 Sit to Lying (QC): 1 (x 2) Lying to Sitting/Side of Bed(Q: 1 (x 2) patient able to sit EOB SBA to address core strengthening and perform bilateral LE exercises Weight Bearing Right Lower Extremity: Right Full Weight Bearing Left Lower Extremity: Left Partial Weight Bearing Gait Training Does the Patient Walk?: No and Walking Goal NOT indicated Exercises Seated Therapy Exercises: Ankle pumps, Long arc quads Seated Reps: 15 (x 2 sets with PROM left LE Noted clonus left foot) Treatments Patient incontinent BM during session requiring dependent assist to cleanse and change bedding. Bed placed in Trendelenberg to assist with bed mobility and positioning. Assessment Declined to sit in recliner. Sat EOB SBA. Improving slowly PT Short Term Goals Short Term Goals Time Frame: Mar 22, 2021 Roll Left & Right: 3 Sit to lyin Lying to sitting on side of be: 3 Sit to stand: 3 PT Cage/Vault Supervisor Goals Mcfp Goals PT Cage/Vault Supervisor Goals Time Frame: Mar 29, 2021 Roll Left & Right (QC): 3 Sit to Lying (QC): 3 Lying-Sitting on Side/Bed(QC): 3 Sit to Stand (QC): 3 Chair/Ito-tg-Nhods Xfer(QC): 2 Toilet Transfer (QC): 2 Car Transfer (QC): 9 Does the Patient Walk: No and Walking Goal NOT indicated Walk 10 feet (QC): 9 Walk 50ft with 2 Turns (QC): 9 Walk 150 ft (QC): 9 Walking 10ft on Uneven Surface: 9 1 Step (curb) (QC): 9 4 Steps (QC): 9 12 Steps (QC): 9 Picking up an Object (QC): 9 Does the Pt use WC or Scooter?: Yes Wheel 50 feet with 2 turns (QC: 6 Type: Manual Wheel 150 feet: 6 Type: Manual PT Plan Treatment/Plan Treatment Plan: Continue Plan of Care Treatment Plan: Bed Mobility, Education, Functional Activity [place], Functional Strength, Gait, Safety, Therapeutic Exercise, Transfers Treatment Duration: Mar 29, 2021 Frequency: 6 times per week Estimated Hrs Per Day: .5 hour per day Patient and/or Family Agrees t: Yes Time/GCodes Time In: 851 Time Out: 914 Total Billed Treatment Time: 23 Total Billed Treatment 1 visit FA 15 min EX 8 min [place] KUMAR PT Mar 24, 2021 10:10
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
[2021-03-24 11:00] VITALS: BP 165/95
--- NOTE | 2021-03-24 11:19 | Occupational Ther Daily Note ---
OT Current Status-Daily Note Subjective Pt alert, lying in bed. Pt c/o back and shldr pain throughout session. Pt agrees to therapy Mental Status/Objective Patient Orientation: Person, Place, Time, Situation Attachments: IV ADL-Treatment Therapy Code Descriptions/Definitions Functional [place] Measure: 0=Not Assessed/NA 4=Minimal Assistance 1=Total Assistance 5=Supervision or Setup 2=Maximal Assistance 6=Modified [place] 3=Moderate Assistance 7=Complete IndependenceSCALE: Activities may be completed with or without assistive devices. 9-Ubqctaihed-lvjkzwl completes the activity by him/herself with no assistance from a helper. 5-Set-up or Clean-up Assistance-helper sets up or cleans up; patient completes activity. [place] assists only prior to or following the activity. 4-Supervision or Touching Assistance-helper provides verbal cues and/or touching/steadying and/or contact guard assistance as patient completes activity. Assistance may be provided throughout the activity or intermittently. 3-Partial/Moderate Assistance-helper does LESS THAN HALF the effort. [place] lifts, holds or supports trunk or limbs, but provides less than half the effort. 2-Substantial/Maximal Assistance-helper does MORE THAN HALF the effort. [place] lifts or holds trunk or limbs and provides more than half the effort. 5-Mcyombflk-hytgin does ALL the effort. Patient does none of the effort to complete the activity. Or, the assistance of 2 or more helpers is required for the patient to complete the activity. If activity was not attempted, code reason: 7-Patient Refused. 9-Not Applicable-not attempted and the patient did not perform the activity before the current illness, exacerbation or injury. 10-Not Attempted due to Environmental Limitations-(lack of equipment, weather restraints, etc.). 88-Not Attempted due to Medical Conditions or Safety Concerns. Other Treatment Pt given medium resistance theraband and one handed exercises. Pt able to complete 1 set 20 reps of bicep, tricep exercises then 10 reps for shldr exercises due to increased L shldr pain. Cleansed pt's L hand and reapplied splint after ranging fingers and wrist. After session, pt lying in bed with call light/phone in reach. All needs met in room. OT Snf Goals Tool Trouble Shooter Goals Time Frame: Mar 28, 2021 Eating (QC): 6 Oral Hygiene (QC): 6 Toileting Hygiene (QC): 3 Shower/Bathe Self (QC): 3 Upper Body Dressing (QC): 3 Lower Body Dressing (QC): 3 On/Off Footwear (QC): 2 Additional Goals: 1-Demonstrate ADL Tasks, 2-Verbalize Understanding, 3- ImproveStrength/[place] 1=Demonstrate adherence to instructed precautions during ADL tasks. 2=Patient will verbalize/demonstrate understanding of assistive devices/modifications for ADL. 3=Patient will improve strength/tolerance for activity to enable patient to perform ADL's. OT Education/Plan Problem List/Assessment Assessment: Decreased Activ Tolerance, Decreased UE Strength, Impaired Self- Care Skills, Restricted Funct UE ROM Pt would benefit from skilled OT services in order to increase safety and independence with ADLs in order to maximize LOF for safe return home and decrease caregiver burden. Discharge Recommendations Plan/Recommendations: Continue POC Treatment Plan/Plan of Care Patient would benefit from OT for education, treatment and training to promote independence in ADL's, mobility, safety and/or upper extremity function for ADL's. Plan of Care: ADL Retraining, Functional Mobility, UE Funct Exercise/Act Treatment Duration: Mar 28, 2021 Frequency: 5 times per week Estimated Hrs Per Day: .25 hour per day Rehab Potential: Fair Time/GCodes Start Time: 10:45 Stop Time: 11:00 Total Time Billed (hr/min): 15 Billed Treatment Time 1 visit-EX 1 (15 min) JOSIAH ESCALANTE Mar 24, 2021 11:19
[2021-03-24] MEDS: ENOXAPARIN 40 MG/0.4 ML (LOVENOX) SYR SC SCH (13:46)
[2021-03-24 16:37] VITALS: BP 121/72
[2021-03-24] MEDS: TAMSULOSIN 0.4 MG (FLOMAX) CAP PO SCH (17:05)
[2021-03-24] MEDS: MELATONIN 3 MG TABLET PO PRN (20:19)
[2021-03-24 20:36] VITALS: BP 114/70
[2021-03-25 00:15] VITALS: BP 131/80
[2021-03-25] MEDS: BETHANECHOL 25 MG (URECHOLINE) TAB PO SCH ×4 (06:03→20:43)
[2021-03-25] MEDS: CATHETER FLUSH 10 ML SYR IV SCH ×3 (06:04→20:43)
[2021-03-25 08:00] VITALS: BP 145/75
[2021-03-25] MEDS: SENNA W/DOCUSATE (SENOKOT S) TABLET PO SCH ×2 (09:33→20:43)
[2021-03-25] MEDS: LACTULOSE SYRUP 10GM/15ML (ENULOSE) 30ML UDC PO SCH ×2 (09:33→20:42)
[2021-03-25] MEDS: BACLOFEN 10 MG (LIORESAL) TAB PO SCH ×3 (09:33→20:43)
[2021-03-25] MEDS: polyethylene glycoL POWDER 17 GM (MIRALAX) PACK PO SCH ×2 (09:33→20:43)
[2021-03-25] MEDS: BISACODYL 10 MG SUPP (DULCOLAX) PR SCH (09:33)
[2021-03-25] MEDS: PANTOPRAZOLE 40 MG (PROTONIX) TAB PO SCH (09:33)
--- NOTE | 2021-03-25 09:52 | Occupational Ther Daily Note ---
OT Current Status-Daily Note Subjective Pt alert, lying in bed. Pt agrees to therapy. C/o pain with movement. Mental Status/Objective Patient Orientation: Person, Place, Time, Situation Attachments: IV, Other-See Comments (hand splint) ADL-Treatment Therapy Code Descriptions/Definitions Functional [place] Measure: 0=Not Assessed/NA 4=Minimal Assistance 1=Total Assistance 5=Supervision or Setup 2=Maximal Assistance 6=Modified [place] 3=Moderate Assistance 7=Complete IndependenceSCALE: Activities may be completed with or without assistive devices. 1-Gptiuulyxb-iojyiqi completes the activity by him/herself with no assistance from a helper. 5-Set-up or Clean-up Assistance-helper sets up or cleans up; patient completes activity. [place] assists only prior to or following the activity. 4-Supervision or Touching Assistance-helper provides verbal cues and/or touching/steadying and/or contact guard assistance as patient completes activity. Assistance may be provided throughout the activity or intermittently. 3-Partial/Moderate Assistance-helper does LESS THAN HALF the effort. [place] lifts, holds or supports trunk or limbs, but provides less than half the effort. 2-Substantial/Maximal Assistance-helper does MORE THAN HALF the effort. [place] lifts or holds trunk or limbs and provides more than half the effort. 9-Narbwpsug-eczixr does ALL the effort. Patient does none of the effort to complete the activity. Or, the assistance of 2 or more helpers is required for the patient to complete the activity. If activity was not attempted, code reason: 7-Patient Refused. 9-Not Applicable-not attempted and the patient did not perform the activity before the current illness, exacerbation or injury. 10-Not Attempted due to Environmental Limitations-(lack of equipment, weather restraints, etc.). 88-Not Attempted due to Medical Conditions or Safety Concerns. Other Treatment Pt agrees to sit up in chair. Max A x2 for supine to EOB then sat EOB by self. Pt requires verbal instructions before completing task due to autism so that pt will know what to expect and assist with task efficiently. Max A x2 for safety with SPT from EOB to recliner, going towards R side. Pt able to bear wt on R LE and pivot while reaching towards arm on chair. After session, pt sitting in recliner with feet elevated. Phone and call light in reach. All needs met in room. OT Bullet Maker Goals Residential Goals Time Frame: Mar 28, 2021 Eating (QC): 6 Oral Hygiene (QC): 6 Toileting Hygiene (QC): 3 Shower/Bathe Self (QC): 3 Upper Body Dressing (QC): 3 Lower Body Dressing (QC): 3 On/Off Footwear (QC): 2 Additional Goals: 1-Demonstrate ADL Tasks, 2-Verbalize Understanding, 3- ImproveStrength/[place] 1=Demonstrate adherence to instructed precautions during ADL tasks. 2=Patient will verbalize/demonstrate understanding of assistive devices/modifications for ADL. 3=Patient will improve strength/tolerance for activity to enable patient to perform ADL's. OT Education/Plan Problem List/Assessment Assessment: Decreased UE Strength, Impaired Self-Care Skills, Restricted Funct UE ROM Pt would benefit from skilled OT services in order to increase safety and independence with ADLs in order to maximize LOF for safe return home and decrease caregiver burden. Discharge Recommendations Plan/Recommendations: Continue POC Treatment Plan/Plan of Care Patient would benefit from OT for education, treatment and training to promote independence in ADL's, mobility, safety and/or upper extremity function for ADL's. Plan of Care: ADL Retraining, Functional Mobility, UE Funct Exercise/Act Treatment Duration: Mar 28, 2021 Frequency: 5 times per week Estimated Hrs Per Day: .25 hour per day Rehab Potential: Fair Time/GCodes Start Time: 09:35 Stop Time: 09:50 Total Time Billed (hr/min): 15 Billed Treatment Time 1 visit-FA 1 (15 min) JOSIAH ESCALANTE Mar 25, 2021 09:52
[2021-03-25 10:17] LABS: HEMATOCRIT 24 % (40-54); HEMOGLOBIN 7.7 g/dL (13.3-17.7); MEAN CORPUSCULAR HEMOGLOBIN 29 pg (25-34); MEAN CORPUSCULAR HGB CONC 32 g/dL (32-36); MEAN CORPUSCULAR VOLUME 92 fL (80-99); MEAN PLATELET VOLUME 10.5 fL (9.0-12.2); PLATELET COUNT 339 10^3/uL (130-400); WHITE BLOOD COUNT 11.9 10^3/uL (4.3-11.0)
--- NOTE | 2021-03-25 11:10 | Physical Therapy Daily Note ---
PT Daily Note-Current Subjective Patient agrees to PT Pain Numeric Pain Scale: 10-Worst Possible Pain Location: Left Location Body Site: Thigh Pain Description: Acute Mental Status Patient Orientation: Person, Time, Situation Transfers SCALE: Activities may be completed with or without assistive devices. 9-Zyhevgygst-fopmqxj completes the activity by him/herself with no assistance from a helper. 5-Set-up or Clean-up Assistance-helper sets up or cleans up; patient completes activity. [place] assists only prior to or following the activity. 4-Supervision or Touching Assistance-helper provides verbal cues and/or touching/steadying and/or contact guard assistance as patient completes activity. Assistance may be provided throughout the activity or intermittently. 3-Partial/Moderate Assistance-helper does LESS THAN HALF the effort. [place] lifts, holds or supports trunk or limbs, but provides less than half the effort. 2-Substantial/Maximal Assistance-helper does MORE THAN HALF the effort. [place] lifts or holds trunk or limbs and provides more than half the effort. 8-Lyszisfjx-aujwzn does ALL the effort. Patient does none of the effort to complete the activity. Or, the assistance of 2 or more helpers is required for the patient to complete the activity. If activity was not attempted, code reason: 7-Patient Refused. 9-Not Applicable-not attempted and the patient did not perform the activity before the current illness, exacerbation or injury. 10-Not Attempted due to Environmental Limitations-(lack of equipment, weather restraints, etc.). 88-Not Attempted due to Medical Conditions or Safety Concerns. Lying to Sitting/Side of Bed(Q: 1 (x 2 with patient resisting due to pain) Sit to Stand (QC): 2 (x 2 with patient performing sit to stand and reaching with right UE to arm of recliner to SPT) Chair/Tvv-jo-Kybqz Xfer(QC): 2 (x 2) Weight Bearing Right Lower Extremity: Right Full Weight Bearing Left Lower Extremity: Left Partial Weight Bearing Gait Training Does the Patient Walk?: No and Walking Goal NOT indicated Exercises Seated Therapy Exercises: Ankle pumps (stretching left ankle due to contracture), Long arc quads (PROM left LE) Seated Reps: 15 Assessment Patient responds to instruction prior to activity. Patient improving with performing sit to stand and SPT. PT Short Term Goals Short Term Goals Time Frame: Mar 22, 2021 Roll Left & Right: 3 Sit to lyin Lying to sitting on side of be: 3 Sit to stand: 3 PT Data Warehouse Administrator Goals Prison Goals PT Data Warehouse Administrator Goals Time Frame: Mar 29, 2021 Roll Left & Right (QC): 3 Sit to Lying (QC): 3 Lying-Sitting on Side/Bed(QC): 3 Sit to Stand (QC): 3 Chair/Gai-mt-Xrzua Xfer(QC): 2 Toilet Transfer (QC): 2 Car Transfer (QC): 9 Does the Patient Walk: No and Walking Goal NOT indicated Walk 10 feet (QC): 9 Walk 50ft with 2 Turns (QC): 9 Walk 150 ft (QC): 9 Walking 10ft on Uneven Surface: 9 1 Step (curb) (QC): 9 4 Steps (QC): 9 12 Steps (QC): 9 Picking up an Object (QC): 9 Does the Pt use WC or Scooter?: Yes Wheel 50 feet with 2 turns (QC: 6 Type: Manual Wheel 150 feet: 6 Type: Manual PT Plan Treatment/Plan Treatment Plan: Continue Plan of Care Treatment Plan: Bed Mobility, Education, Functional Activity [place], Functional Strength, Gait, Safety, Therapeutic Exercise, Transfers Treatment Duration: Mar 29, 2021 Frequency: 6 times per week Estimated Hrs Per Day: .5 hour per day Patient and/or Family Agrees t: Yes Time/GCodes Time In: 935 Time Out: 950 Total Billed Treatment Time: 15 Total Billed Treatment 1 visit FA 15 min [place] KUMAR PT Mar 25, 2021 11:10
--- NOTE | 2021-03-25 12:21 | Progress Note ---
Standard Progress Note Progress Notes/Assess & Plan Date Seen by a Provider: Mar 25, 2021 Time Seen by a Provider: 12:21 Progress/Assessment & Plan no complaints Vital Signs Date Time Temp Pulse Resp B/P (MAP) Pulse Ox O2 Delivery O2 Flow Rate FiO2 03/22/21 08:00 Room Air 03/22/21 08:00 37.6 111 16 123/74 (90) 95 Room Air 03/22/21 07:47 Room Air 03/22/21 03:23 37.5 106 18 124/77 (93) 95 Room Air 03/21/21 23:25 36.0 119 20 136/86 (103) 95 Room Air 03/21/21 21:18 Room Air 03/21/21 20:57 36.0 116 21 114/77 (89) 95 Room Air 03/21/21 19:48 Room Air 03/21/21 16:28 36.4 113 20 103/73 (83) 95 Room Air 03/21/21 15:25 Room Air 03/21/21 15:25 36.4 18 132/68 (89) 93 Room Air 03/21/21 15:20 20 136/65 (88) 93 Room Air 03/21/21 15:14 Room Air 03/21/21 15:10 18 134/57 (82) 93 Room Air 03/21/21 15:08 Room Air 03/21/21 15:04 OxyMask 3 03/21/21 15:02 OxyMask 6 03/21/21 15:00 18 122/86 (98) 95 OxyMask 3 03/21/21 14:52 OxyMask 6 03/21/21 14:50 18 120/89 (99) 98 OxyMask 6 03/21/21 14:50 18 120/89 (99) 98 OxyMask 6 03/21/21 14:45 OxyMask 6 03/21/21 14:40 18 116/72 (87) 96 OxyMask 6 03/21/21 14:34 36.8 16 108/56 (73) 97 OxyMask 6 03/21/21 14:34 OxyMask 6 I & O 03/22/21 07:00 Intake Total 4000 ml Output Total 1500 ml Balance 2500 ml Laboratory Tests Test 03/22/21 05:13 Range/Units White Blood Count 16.7 H 4.3-11.0 10^3/uL Red Blood Count 2.45 L 4.30-5.52 10^6/uL Hemoglobin 7.2 #L 13.3-17.7 g/dL Hematocrit 22 L 40-54 % Mean Corpuscular Volume 91 80-99 fL Mean Corpuscular Hemoglobin 29 25-34 pg Mean Corpuscular Hemoglobin Concent 32 32-36 g/dL Red Cell Distribution Width 14.9 H 10.0-14.5 % Platelet Count 295 130-400 10^3/uL Mean Platelet Volume 11.2 9.0-12.2 fL Immature Granulocyte % (Auto) 5 % Neutrophils (%) (Auto) 73 42-75 % Lymphocytes (%) (Auto) 16 12-44 % Monocytes (%) (Auto) 6 0-12 % Eosinophils (%) (Auto) 0 0-10 % Basophils (%) (Auto) 0 0-10 % Neutrophils # (Auto) 12.2 H 1.8-7.8 10^3/uL Lymphocytes # (Auto) 2.7 1.0-4.0 10^3/uL Monocytes # (Auto) 1.0 0.0-1.0 10^3/uL Eosinophils # (Auto) 0.0 0.0-0.3 10^3/uL Basophils # (Auto) 0.0 0.0-0.1 10^3/uL Immature Granulocyte # (Auto) 0.8 H 0.0-0.1 10^3/uL Sodium Level 135 135-145 MMOL/L Potassium Level 4.5 3.6-5.0 MMOL/L Chloride Level 100 98-107 MMOL/L Carbon Dioxide Level 24 21-32 MMOL/L Anion Gap 11 5-14 MMOL/L Blood Urea Nitrogen 20 H 7-18 MG/DL Creatinine 0.76 0.60-1.30 MG/DL Estimat Glomerular Filtration Rate > 60 BUN/Creatinine Ratio 26 Glucose Level 135 H 70-105 MG/DL Calcium Level 7.8 L 8.5-10.1 MG/DL LLE--dressing intact. brisk cap refill distally s/p L femur IM candelario WB for transfer with support Final Diagnosis Feeling better Vital Signs Date Time Temp Pulse Resp B/P (MAP) Pulse Ox O2 Delivery O2 Flow Rate FiO2 03/25/21 08:00 Room Air 03/25/21 08:00 36.2 105 18 145/75 (98) 97 Room Air 03/25/21 00:15 36.6 106 20 131/80 (97) 96 Room Air 03/24/21 20:36 36.3 111 18 114/70 (85) 96 Room Air 03/24/21 19:00 96 Room Air 03/24/21 16:37 35.4 107 18 121/72 (88) 96 Room Air I & O 03/25/21 07:00 Intake Total 3250 ml Output Total 530 ml Balance 2720 ml Laboratory Tests Test 03/25/21 10:06 Range/Units White Blood Count 11.9 H 4.3-11.0 10^3/uL Red Blood Count 2.64 L 4.30-5.52 10^6/uL Hemoglobin 7.7 L 13.3-17.7 g/dL Hematocrit 24 L 40-54 % Mean Corpuscular Volume 92 80-99 fL Mean Corpuscular Hemoglobin 29 25-34 pg Mean Corpuscular Hemoglobin Concent 32 32-36 g/dL Red Cell Distribution Width 15.2 H 10.0-14.5 % Platelet Count 339 130-400 10^3/uL Mean Platelet Volume 10.5 9.0-12.2 fL LLE--incision clean and dry. No calf tenderness s/p IM candelario L femur await disposition KESHA ARMIJO MD Mar 25, 2021 12:21
[2021-03-25] MEDS: ENOXAPARIN 40 MG/0.4 ML (LOVENOX) SYR SC SCH (13:30)
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
[2021-03-25 17:09] VITALS: BP 165/78
[2021-03-25] MEDS: TAMSULOSIN 0.4 MG (FLOMAX) CAP PO SCH (17:52)
[2021-03-25] MEDS: MELATONIN 3 MG TABLET PO PRN (20:42)
[2021-03-25 23:30] VITALS: BP 126/80
[2021-03-26] MEDS: CATHETER FLUSH 10 ML SYR IV SCH ×3 (05:35→20:29)
[2021-03-26] MEDS: BETHANECHOL 25 MG (URECHOLINE) TAB PO SCH ×4 (05:35→20:29)
[2021-03-26 07:30] VITALS: BP 167/79
[2021-03-26] MEDS: BISACODYL 10 MG SUPP (DULCOLAX) PR SCH (08:55)
[2021-03-26] MEDS: polyethylene glycoL POWDER 17 GM (MIRALAX) PACK PO SCH ×2 (08:55→20:28)
[2021-03-26] MEDS: PANTOPRAZOLE 40 MG (PROTONIX) TAB PO SCH (08:55)
[2021-03-26] MEDS: SENNA W/DOCUSATE (SENOKOT S) TABLET PO SCH ×2 (08:55→20:28)
[2021-03-26] MEDS: LACTULOSE SYRUP 10GM/15ML (ENULOSE) 30ML UDC PO SCH ×2 (08:55→20:28)
[2021-03-26] MEDS: BACLOFEN 10 MG (LIORESAL) TAB PO SCH ×3 (08:55→20:29)
--- NOTE | 2021-03-26 10:51 | Occupational Ther Daily Note ---
OT Current Status-Daily Note Subjective Pt alert, lying in bed. Pt agrees to therapy. No c/o pain. Pt stated that he had nrsg take off hand splint due to discomfort, declined to put back on. Mental Status/Objective Patient Orientation: Person, Place, Time, Situation ADL-Treatment Pt reported that he may have had BM in bed. Pt able to cleanse audrey area in bed with HOB elevated after set up. With verbal and gestural cues, pt able to roll toward L side with mod A x2. Dependent with completing hygiene after BM. Mod A x2 with HOB elevated to go from sidelying to sitting EOB. Max A x2 for SPT from EOB to BSC. Pt continued to have BM on BSC. Assist to stand and assist to cleanse after BM. Pt fatigued quickly and required max A x2 to SPT from BSC to recliner. Pt made comfortable in recliner. Call light/phone in reach after therapy. All needs met in room. Therapy Code Descriptions/Definitions Functional [place] Measure: 0=Not Assessed/NA 4=Minimal Assistance 1=Total Assistance 5=Supervision or Setup 2=Maximal Assistance 6=Modified [place] 3=Moderate Assistance 7=Complete IndependenceSCALE: Activities may be completed with or without assistive devices. 6-Sooftfaeio-qtxpweb completes the activity by him/herself with no assistance from a helper. 5-Set-up or Clean-up Assistance-helper sets up or cleans up; patient completes activity. [place] assists only prior to or following the activity. 4-Supervision or Touching Assistance-helper provides verbal cues and/or touching/steadying and/or contact guard assistance as patient completes activity. Assistance may be provided throughout the activity or intermittently. 3-Partial/Moderate Assistance-helper does LESS THAN HALF the effort. [place] lifts, holds or supports trunk or limbs, but provides less than half the effort. 2-Substantial/Maximal Assistance-helper does MORE THAN HALF the effort. [place] lifts or holds trunk or limbs and provides more than half the effort. 4-Zwpxavcct-piglqr does ALL the effort. Patient does none of the effort to complete the activity. Or, the assistance of 2 or more helpers is required for the patient to complete the activity. If activity was not attempted, code reason: 7-Patient Refused. 9-Not Applicable-not attempted and the patient did not perform the activity before the current illness, exacerbation or injury. 10-Not Attempted due to Environmental Limitations-(lack of equipment, weather restraints, etc.). 88-Not Attempted due to Medical Conditions or Safety Concerns. On/Off Footwear: 2 Toileting Hygiene (QC): 2 OT Senior Care Goals Mixer Attendant Goals Time Frame: Mar 28, 2021 Eating (QC): 6 Oral Hygiene (QC): 6 Toileting Hygiene (QC): 3 Shower/Bathe Self (QC): 3 Upper Body Dressing (QC): 3 Lower Body Dressing (QC): 3 On/Off Footwear (QC): 2 Additional Goals: 1-Demonstrate ADL Tasks, 2-Verbalize Understanding, 3-ImproveStrength/[place] 1=Demonstrate adherence to instructed precautions during ADL tasks. 2=Patient will verbalize/demonstrate understanding of assistive devices/modifications for ADL. 3=Patient will improve strength/tolerance for activity to enable patient to perform ADL's. OT Education/Plan Problem List/Assessment Assessment: Decreased Activ Tolerance, Impaired Bed Mobility, Impaired Funct Balance, Impaired Self-Care Skills, Restricted Funct UE ROM Pt would benefit from skilled OT services in order to increase safety and independence with ADLs in order to maximize LOF for safe return home and decre ase caregiver burden. Discharge Recommendations Plan/Recommendations: Continue POC Treatment Plan/Plan of Care Patient would benefit from OT for education, treatment and training to promote independence in ADL's, mobility, safety and/or upper extremity function for ADL's. Plan of Care: ADL Retraining, Functional Mobility, UE Funct Exercise/Act Treatment Duration: Mar 28, 2021 Frequency: 5 times per week Estimated Hrs Per Day: .25 hour per day Rehab Potential: Fair Time/GCodes Start Time: 10:00 Stop Time: 10:25 Total Time Billed (hr/min): 25 Billed Treatment Time 1 visit-ADL 2 (25 min) JOSIAH ESCALANTE Mar 26, 2021 10:51
--- NOTE | 2021-03-26 10:54 | Physical Therapy Daily Note ---
PT Daily Note-Current Subjective Patient agrees to PT/OT. Incontinent BM resulting in dependent assist to cleanse and change. Mental Status Patient Orientation: Person, Time, Situation Transfers SCALE: Activities may be completed with or without assistive devices. 3-Jywabpklkh-rvexppv completes the activity by him/herself with no assistance from a helper. 5-Set-up or Clean-up Assistance-helper sets up or cleans up; patient completes activity. [place] assists only prior to or following the activity. 4-Supervision or Touching Assistance-helper provides verbal cues and/or touching/steadying and/or contact guard assistance as patient completes activity. Assistance may be provided throughout the activity or intermittently. 3-Partial/Moderate Assistance-helper does LESS THAN HALF the effort. [place] lifts, holds or supports trunk or limbs, but provides less than half the effort. 2-Substantial/Maximal Assistance-helper does MORE THAN HALF the effort. [place] lifts or holds trunk or limbs and provides more than half the effort. 3-Qxjqhnbbi-jbzqkp does ALL the effort. Patient does none of the effort to complete the activity. Or, the assistance of 2 or more helpers is required for the patient to complete the activity. If activity was not attempted, code reason: 7-Patient Refused. 9-Not Applicable-not attempted and the patient did not perform the activity before the current illness, exacerbation or injury. 10-Not Attempted due to Environmental Limitations-(lack of equipment, weather restraints, etc.). 88-Not Attempted due to Medical Conditions or Safety Concerns. Roll Left & Right (QC): 1 (x 2) Sit to Lying (QC): 1 (x 2) Lying to Sitting/Side of Bed(Q: 1 (x 2) Sit to Stand (QC): 2 (x 2) Chair/Pbq-ye-Thsuv Xfer(QC): 2 (x 2) Toilet Transfer (QC): 2 (x 2) SPT to right/bed mobility remains dependent assist of 2 with patient resisting all mobility due to rib pain Weight Bearing Right Lower Extremity: Right Full Weight Bearing Left Lower Extremity: Left Partial Weight Bearing Assessment Patient requires explanation prior to performing tasks for him to process the task. Patient is dependent assist of 2 for bed mobility and to sit EOB and rolling. Max assist of 2 with sit to stand and SPT to the right. Patient is non ambulatory. PT Short Term Goals Short Term Goals Time Frame: Mar 22, 2021 Roll Left & Right: 3 Sit to lyin Lying to sitting on side of be: 3 Sit to stand: 3 PT Medical Scientific Officer Goals Care Home Goals PT Care Home Goals Time Frame: Mar 29, 2021 Roll Left & Right (QC): 3 Sit to Lying (QC): 3 Lying-Sitting on Side/Bed(QC): 3 Sit to Stand (QC): 3 Chair/Kgm-vp-Xyldd Xfer(QC): 2 Toilet Transfer (QC): 2 Car Transfer (QC): 9 Does the Patient Walk: No and Walking Goal NOT indicated Walk 10 feet (QC): 9 Walk 50ft with 2 Turns (QC): 9 Walk 150 ft (QC): 9 Walking 10ft on Uneven Surface: 9 1 Step (curb) (QC): 9 4 Steps (QC): 9 12 Steps (QC): 9 Picking up an Object (QC): 9 Does the Pt use WC or Scooter?: Yes Wheel 50 feet with 2 turns (QC: 6 Type: Manual Wheel 150 feet: 6 Type: Manual PT Plan Treatment/Plan Treatment Plan: Continue Plan of Care Treatment Plan: Bed Mobility, Education, Functional Activity [place], Functional Strength, Gait, Safety, Therapeutic Exercise, Transfers Treatment Duration: Mar 29, 2021 Frequency: 6 times per week Estimated Hrs Per Day: .5 hour per day Patient and/or Family Agrees t: Yes Time/GCodes Time In: 1000 Time Out: 1024 Total Billed Treatment Time: 24 Total Billed Treatment 1 visit FA x 2 24 min [place] KUMAR PT Mar 26, 2021 10:54
[2021-03-26] MEDS: ENOXAPARIN 40 MG/0.4 ML (LOVENOX) SYR SC SCH (12:14)
--- NOTE | 2021-03-26 13:32 | Progress Note ---
Standard Progress Note Progress Notes/Assess & Plan Date Seen by a Provider: Mar 26, 2021 Time Seen by a Provider: 13:32 Progress/Assessment & Plan no complaints Vital Signs Date Time Temp Pulse Resp B/P (MAP) Pulse Ox O2 Delivery O2 Flow Rate FiO2 03/22/21 08:00 Room Air 03/22/21 08:00 37.6 111 16 123/74 (90) 95 Room Air 03/22/21 07:47 Room Air 03/22/21 03:23 37.5 106 18 124/77 (93) 95 Room Air 03/21/21 23:25 36.0 119 20 136/86 (103) 95 Room Air 03/21/21 21:18 Room Air 03/21/21 20:57 36.0 116 21 114/77 (89) 95 Room Air 03/21/21 19:48 Room Air 03/21/21 16:28 36.4 113 20 103/73 (83) 95 Room Air 03/21/21 15:25 Room Air 03/21/21 15:25 36.4 18 132/68 (89) 93 Room Air 03/21/21 15:20 20 136/65 (88) 93 Room Air 03/21/21 15:14 Room Air 03/21/21 15:10 18 134/57 (82) 93 Room Air 03/21/21 15:08 Room Air 03/21/21 15:04 OxyMask 3 03/21/21 15:02 OxyMask 6 03/21/21 15:00 18 122/86 (98) 95 OxyMask 3 03/21/21 14:52 OxyMask 6 03/21/21 14:50 18 120/89 (99) 98 OxyMask 6 03/21/21 14:50 18 120/89 (99) 98 OxyMask 6 03/21/21 14:45 OxyMask 6 03/21/21 14:40 18 116/72 (87) 96 OxyMask 6 03/21/21 14:34 36.8 16 108/56 (73) 97 OxyMask 6 03/21/21 14:34 OxyMask 6 I & O 03/22/21 07:00 Intake Total 4000 ml Output Total 1500 ml Balance 2500 ml Laboratory Tests Test 03/22/21 05:13 Range/Units White Blood Count 16.7 H 4.3-11.0 10^3/uL Red Blood Count 2.45 L 4.30-5.52 10^6/uL Hemoglobin 7.2 #L 13.3-17.7 g/dL Hematocrit 22 L 40-54 % Mean Corpuscular Volume 91 80-99 fL Mean Corpuscular Hemoglobin 29 25-34 pg Mean Corpuscular Hemoglobin Concent 32 32-36 g/dL Red Cell Distribution Width 14.9 H 10.0-14.5 % Platelet Count 295 130-400 10^3/uL Mean Platelet Volume 11.2 9.0-12.2 fL Immature Granulocyte % (Auto) 5 % Neutrophils (%) (Auto) 73 42-75 % Lymphocytes (%) (Auto) 16 12-44 % Monocytes (%) (Auto) 6 0-12 % Eosinophils (%) (Auto) 0 0-10 % Basophils (%) (Auto) 0 0-10 % Neutrophils # (Auto) 12.2 H 1.8-7.8 10^3/uL Lymphocytes # (Auto) 2.7 1.0-4.0 10^3/uL Monocytes # (Auto) 1.0 0.0-1.0 10^3/uL Eosinophils # (Auto) 0.0 0.0-0.3 10^3/uL Basophils # (Auto) 0.0 0.0-0.1 10^3/uL Immature Granulocyte # (Auto) 0.8 H 0.0-0.1 10^3/uL Sodium Level 135 135-145 MMOL/L Potassium Level 4.5 3.6-5.0 MMOL/L Chloride Level 100 98-107 MMOL/L Carbon Dioxide Level 24 21-32 MMOL/L Anion Gap 11 5-14 MMOL/L Blood Urea Nitrogen 20 H 7-18 MG/DL Creatinine 0.76 0.60-1.30 MG/DL Estimat Glomerular Filtration Rate > 60 BUN/Creatinine Ratio 26 Glucose Level 135 H 70-105 MG/DL Calcium Level 7.8 L 8.5-10.1 MG/DL LLE--dressing intact. brisk cap refill distally s/p L femur IM candelario WB for transfer with support Final Diagnosis improving LLE incision clean and dry. Neg Coty's s/p L femur IM candelario await disposition KESHA ARMIJO MD Mar 26, 2021 13:32
[2021-03-26 16:40] VITALS: BP 129/74
[2021-03-26] MEDS: TAMSULOSIN 0.4 MG (FLOMAX) CAP PO SCH (17:48)
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
[2021-03-26] MEDS: MELATONIN 3 MG TABLET PO PRN (20:29)
[2021-03-26 23:30] VITALS: BP 130/75
[2021-03-26] MEDS: oxyCODONE/APAP 5/325MG (PERCOCET 5) TABLET PO PRN (23:47)
[2021-03-27] MEDS: BETHANECHOL 25 MG (URECHOLINE) TAB PO SCH ×4 (05:23→20:05)
[2021-03-27] MEDS: CATHETER FLUSH 10 ML SYR IV SCH ×3 (05:23→20:06)
[2021-03-27] MEDS: BISACODYL 10 MG SUPP (DULCOLAX) PR SCH (07:25)
[2021-03-27] MEDS: SENNA W/DOCUSATE (SENOKOT S) TABLET PO SCH ×2 (07:52→20:07)
[2021-03-27] MEDS: LACTULOSE SYRUP 10GM/15ML (ENULOSE) 30ML UDC PO SCH ×2 (07:52→20:07)
[2021-03-27] MEDS: polyethylene glycoL POWDER 17 GM (MIRALAX) PACK PO SCH ×2 (07:52→20:06)
[2021-03-27] MEDS: PANTOPRAZOLE 40 MG (PROTONIX) TAB PO SCH (07:56)
[2021-03-27] MEDS: HYDROcodone/APAP 5 MG/325 MG (LORTAB) TAB PO PRN (07:56)
[2021-03-27] MEDS: BACLOFEN 10 MG (LIORESAL) TAB PO SCH ×3 (07:56→20:05)
[2021-03-27 08:00] VITALS: BP 129/71
--- NOTE | 2021-03-27 08:07 | Progress Note ---
Standard Progress Note Progress Notes/Assess & Plan Date Seen by a Provider: Mar 27, 2021 Time Seen by a Provider: 08:06 Progress/Assessment & Plan no complaints Vital Signs Date Time Temp Pulse Resp B/P (MAP) Pulse Ox O2 Delivery O2 Flow Rate FiO2 03/22/21 08:00 Room Air 03/22/21 08:00 37.6 111 16 123/74 (90) 95 Room Air 03/22/21 07:47 Room Air 03/22/21 03:23 37.5 106 18 124/77 (93) 95 Room Air 03/21/21 23:25 36.0 119 20 136/86 (103) 95 Room Air 03/21/21 21:18 Room Air 03/21/21 20:57 36.0 116 21 114/77 (89) 95 Room Air 03/21/21 19:48 Room Air 03/21/21 16:28 36.4 113 20 103/73 (83) 95 Room Air 03/21/21 15:25 Room Air 03/21/21 15:25 36.4 18 132/68 (89) 93 Room Air 03/21/21 15:20 20 136/65 (88) 93 Room Air 03/21/21 15:14 Room Air 03/21/21 15:10 18 134/57 (82) 93 Room Air 03/21/21 15:08 Room Air 03/21/21 15:04 OxyMask 3 03/21/21 15:02 OxyMask 6 03/21/21 15:00 18 122/86 (98) 95 OxyMask 3 03/21/21 14:52 OxyMask 6 03/21/21 14:50 18 120/89 (99) 98 OxyMask 6 03/21/21 14:50 18 120/89 (99) 98 OxyMask 6 03/21/21 14:45 OxyMask 6 03/21/21 14:40 18 116/72 (87) 96 OxyMask 6 03/21/21 14:34 36.8 16 108/56 (73) 97 OxyMask 6 03/21/21 14:34 OxyMask 6 I & O 03/22/21 07:00 Intake Total 4000 ml Output Total 1500 ml Balance 2500 ml Laboratory Tests Test 03/22/21 05:13 Range/Units White Blood Count 16.7 H 4.3-11.0 10^3/uL Red Blood Count 2.45 L 4.30-5.52 10^6/uL Hemoglobin 7.2 #L 13.3-17.7 g/dL Hematocrit 22 L 40-54 % Mean Corpuscular Volume 91 80-99 fL Mean Corpuscular Hemoglobin 29 25-34 pg Mean Corpuscular Hemoglobin Concent 32 32-36 g/dL Red Cell Distribution Width 14.9 H 10.0-14.5 % Platelet Count 295 130-400 10^3/uL Mean Platelet Volume 11.2 9.0-12.2 fL Immature Granulocyte % (Auto) 5 % Neutrophils (%) (Auto) 73 42-75 % Lymphocytes (%) (Auto) 16 12-44 % Monocytes (%) (Auto) 6 0-12 % Eosinophils (%) (Auto) 0 0-10 % Basophils (%) (Auto) 0 0-10 % Neutrophils # (Auto) 12.2 H 1.8-7.8 10^3/uL Lymphocytes # (Auto) 2.7 1.0-4.0 10^3/uL Monocytes # (Auto) 1.0 0.0-1.0 10^3/uL Eosinophils # (Auto) 0.0 0.0-0.3 10^3/uL Basophils # (Auto) 0.0 0.0-0.1 10^3/uL Immature Granulocyte # (Auto) 0.8 H 0.0-0.1 10^3/uL Sodium Level 135 135-145 MMOL/L Potassium Level 4.5 3.6-5.0 MMOL/L Chloride Level 100 98-107 MMOL/L Carbon Dioxide Level 24 21-32 MMOL/L Anion Gap 11 5-14 MMOL/L Blood Urea Nitrogen 20 H 7-18 MG/DL Creatinine 0.76 0.60-1.30 MG/DL Estimat Glomerular Filtration Rate > 60 BUN/Creatinine Ratio 26 Glucose Level 135 H 70-105 MG/DL Calcium Level 7.8 L 8.5-10.1 MG/DL LLE--dressing intact. brisk cap refill distally s/p L femur IM candelario WB for transfer with support Final Diagnosis no complaints LLE--incision benign no calf tenderness s/p L femur IM candelario await dispostion KESHA ARMIJO MD Mar 27, 2021 08:07
--- NOTE | 2021-03-27 09:25 | D/C HH Face to Face Order ---
D/C Face to Face Orders Instructions for Patient Via [facility], Patient Instructions/FollowUp: Please continue to take your medications as written. Please follow up with your primary care doctor to follow up this hospital stay. Physician to follow Patient: Yamileth Barnes NP Discharge Diet for Home: No Restrictions Patient Data-Allergies,Ht & Wt Patient Allergies: Coded Allergies: No Known Drug Allergies (Unverified , 03/24/20) Home Health Need/Face to Face Date of Face to Face: Mar 27, 2021 Clinical Findings: Generalized weakness and fatigue, Muscle weakness, Non or partial weight bearing, Unsteady gait I have seen Pt [id number]: Yes Discharged To: Home Diagnosis/Conditions: Femur fracture Patient is Homebound due to: Kathie fall risk due to instabilty, Non-weight bearing Homebound Status Due to the above stated illness, injury or surgical procedure (medical condition or diagnosis) and associated clinical findings, the patient is homebound because of his/her inability to leave home except with aid of a supportive device and/or person AND leaving the home requires a considerable and taxing effort or is medically contraindicated. Pt req the following assistanc: Aid of another person, Walker, Wheelchair Home Health Nursing Orders Home Health Services Order: Nursing Services, Tabular Typist-Evaluate & Treat, Physical Therapy-Evaluate & Treat Home Health Infusion Therapy Line Start Date: Mar 14, 2021 Therapy Orders Therapy Orders: OT (must have SN or PT order), Physical Therapy Therapy Specific Orders: Eval assistive deivces, Teach enviro modifications/safety, Gait training, Increase strength/endurance [facility] certify that this patient is under my care and that I, a nurse practitioner or a physician; a virtual assistant working with me, had a face to face encounter that - meets the physician face to face encounter requirements with this patient as dated. MEREDITH WILKERSON MD Mar 27, 2021 09:25
[2021-03-27] MEDS ORDERED: ACHD5005 PO (09:27)
--- NOTE | 2021-03-27 10:39 | Physical Therapy Daily Note ---
PT Daily Note-Current Subjective Patient agrees to PT. Mental Status Patient Orientation: Person, Time, Situation Transfers SCALE: Activities may be completed with or without assistive devices. 0-Bcycjrejpw-gvtwsle completes the activity by him/herself with no assistance from a helper. 5-Set-up or Clean-up Assistance-helper sets up or cleans up; patient completes activity. [place] assists only prior to or following the activity. 4-Supervision or Touching Assistance-helper provides verbal cues and/or touching/steadying and/or contact guard assistance as patient completes activity. Assistance may be provided throughout the activity or intermittently. 3-Partial/Moderate Assistance-helper does LESS THAN HALF the effort. [place] lifts, holds or supports trunk or limbs, but provides less than half the effort. 2-Substantial/Maximal Assistance-helper does MORE THAN HALF the effort. [place] lifts or holds trunk or limbs and provides more than half the effort. 7-Ctfbydssz-ycayrq does ALL the effort. Patient does none of the effort to c omplete the activity. Or, the assistance of 2 or more helpers is required for the patient to complete the activity. If activity was not attempted, code reason: 7-Patient Refused. 9-Not Applicable-not attempted and the patient did not perform the activity before the current illness, exacerbation or injury. 10-Not Attempted due to Environmental Limitations-(lack of equipment, weather restraints, etc.). 88-Not Attempted due to Medical Conditions or Safety Concerns. Lying to Sitting/Side of Bed(Q: 2 Sit to Stand (QC): 2 Chair/Npy-rq-Kcphx Xfer(QC): 2 Max assist x 1 with SBA of 1 for safety. Weight Bearing Right Lower Extremity: Right Full Weight Bearing Left Lower Extremity: Left Partial Weight Bearing Exercises Seated Therapy Exercises: Ankle pumps, Long arc quads Seated Reps: 12 (x 2 PROM left LE) Assessment Patient up in recliner with needs met. Physician in to assess patient. Much improved and wanting to go home. PT Short Term Goals Short Term Goals Time Frame: Mar 22, 2021 Roll Left & Right: 3 Sit to lyin Lying to sitting on side of be: 3 Sit to stand: 3 PT Mcfp Goals Mcfp Goals PT Medical Customer Service Representative Goals Time Frame: Mar 29, 2021 Roll Left & Right (QC): 3 Sit to Lying (QC): 3 Lying-Sitting on Side/Bed(QC): 3 Sit to Stand (QC): 3 Chair/Yxv-us-Vmemi Xfer(QC): 2 Toilet Transfer (QC): 2 Car Transfer (QC): 9 Does the Patient Walk: No and Walking Goal NOT indicated Walk 10 feet (QC): 9 Walk 50ft with 2 Turns (QC): 9 Walk 150 ft (QC): 9 Walking 10ft on Uneven Surface: 9 1 Step (curb) (QC): 9 4 Steps (QC): 9 12 Steps (QC): 9 Picking up an Object (QC): 9 Does the Pt use WC or Scooter?: Yes Wheel 50 feet with 2 turns (QC: 6 Type: Manual Wheel 150 feet: 6 Type: Manual PT Plan Treatment/Plan Treatment Plan: Continue Plan of Care Treatment Plan: Bed Mobility, Education, Functional Activity [place], Functional Strength, Gait, Safety, Therapeutic Exercise, Transfers Treatment Duration: Mar 29, 2021 Frequency: 6 times per week Estimated Hrs Per Day: .5 hour per day Patient and/or Family Agrees t: Yes Time/GCodes Time In: 907 Time Out: 917 Total Billed Treatment Time: 10 Total Billed Treatment 1 visit FA 10 min OH KUMAR PT Mar 27, 2021 10:39
--- NOTE | 2021-03-27 11:18 | Occupational Ther Daily Note ---
OT Current Status-Daily Note Subjective Pt finishing up with PT. Pt agrees to therapy. No c/o pain. Mental Status/Objective Patient Orientation: Person, Place, Time, Situation ADL-Treatment Pt able to complete oral care after setup due to decreased function of L UE. Pt then was able to complete oral care by self. Pt requires max A to position self in chair for comfort. Pt able to wash face and bring drink to mouth using R UE. After session, pt sitting in recliner with call light/phone in reach. All needs met in room. Therapy Code Descriptions/Definitions Functional [place] Measure: 0=Not Assessed/NA 4=Minimal Assistance 1=Total Assistance 5=Supervision or Setup 2=Maximal Assistance 6=Modified [place] 3=Moderate Assistance 7=Complete IndependenceSCALE: Activities may be completed with or without assistive devices. 2-Licfeygeha-ratyxxv completes the activity by him/herself with no assistance from a helper. 5-Set-up or Clean-up Assistance-helper sets up or cleans up; patient completes activity. [place] assists only prior to or following the activity. 4-Supervision or Touching Assistance-helper provides verbal cues and/or touching/steadying and/or contact guard assistance as patient completes activity. Assistance may be provided throughout the activity or intermittently. 3-Partial/Moderate Assistance-helper does LESS THAN HALF the effort. [place] lifts, holds or supports trunk or limbs, but provides less than half the effort. 2-Substantial/Maximal Assistance-helper does MORE THAN HALF the effort. [place] lifts or holds trunk or limbs and provides more than half the effort. 2-Bhykbjcda-jjrmhq does ALL the effort. Patient does none of the effort to complete the activity. Or, the assistance of 2 or more helpers is required for the patient to complete the activity. If activity was not attempted, code reason: 7-Patient Refused. 9-Not Applicable-not attempted and the patient did not perform the activity before the current illness, exacerbation or injury. 10-Not Attempted due to Environmental Limitations-(lack of equipment, weather restraints, etc.). 88-Not Attempted due to Medical Conditions or Safety Concerns. OT Mcfp Goals Grey Roll Man Goals Time Frame: Mar 28, 2021 Eating (QC): 6 Oral Hygiene (QC): 6 Toileting Hygiene (QC): 3 Shower/Bathe Self (QC): 3 Upper Body Dressing (QC): 3 Lower Body Dressing (QC): 3 On/Off Footwear (QC): 2 Additional Goals: 1-Demonstrate ADL Tasks, 2-Verbalize Understanding, 3- ImproveStrength/[place] 1=Demonstrate adherence to instructed precautions during ADL tasks. 2=Patient will verbalize/demonstrate understanding of assistive devices/modifications for ADL. 3=Patient will improve strength/tolerance for activity to enable patient to perform ADL's. OT Education/Plan Problem List/Assessment Assessment: Decreased Activ Tolerance, Decreased UE Strength, Impaired Bed Mobility, Impaired Funct Balance, Impaired Self-Care Skills, Restricted Funct UE ROM Pt would benefit from skilled OT services in order to increase safety and independence with ADLs in order to maximize LOF for safe return home and decrease caregiver burden. Discharge Recommendations Plan/Recommendations: Continue POC Treatment Plan/Plan of Care Patient would benefit from OT for education, treatment and training to promote independence in ADL's, mobility, safety and/or upper extremity function for ADL's. Plan of Care: ADL Retraining, Functional Mobility, UE Funct Exercise/Act Treatment Duration: Mar 28, 2021 Frequency: 5 times per week Estimated Hrs Per Day: .25 hour per day Rehab Potential: Fair Time/GCodes Start Time: 09:15 Stop Time: 09:30 Total Time Billed (hr/min): 15 Billed Treatment Time 1 visit-ADL 1 (15 min) JOSIAH ESCALANTE Mar 27, 2021 11:18
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
[2021-03-27] MEDS: ENOXAPARIN 40 MG/0.4 ML (LOVENOX) SYR SC SCH (13:46)
[2021-03-27 16:10] VITALS: BP 138/85
[2021-03-27] MEDS: TAMSULOSIN 0.4 MG (FLOMAX) CAP PO SCH (17:15)
[2021-03-27] MEDS: MELATONIN 3 MG TABLET PO PRN (20:05)
[2021-03-27 23:40] VITALS: BP 117/64
[2021-03-28] MEDS: BETHANECHOL 25 MG (URECHOLINE) TAB PO SCH ×3 (04:39→16:00)
[2021-03-28] MEDS: CATHETER FLUSH 10 ML SYR IV SCH ×2 (04:39→14:17)
--- NOTE | 2021-03-28 07:04 | Progress Note ---
Standard Progress Note Progress Notes/Assess & Plan Date Seen by a Provider: Mar 28, 2021 Time Seen by a Provider: 07:03 Progress/Assessment & Plan no complaints Vital Signs Date Time Temp Pulse Resp B/P (MAP) Pulse Ox O2 Delivery O2 Flow Rate FiO2 03/22/21 08:00 Room Air 03/22/21 08:00 37.6 111 16 123/74 (90) 95 Room Air 03/22/21 07:47 Room Air 03/22/21 03:23 37.5 106 18 124/77 (93) 95 Room Air 03/21/21 23:25 36.0 119 20 136/86 (103) 95 Room Air 03/21/21 21:18 Room Air 03/21/21 20:57 36.0 116 21 114/77 (89) 95 Room Air 03/21/21 19:48 Room Air 03/21/21 16:28 36.4 113 20 103/73 (83) 95 Room Air 03/21/21 15:25 Room Air 03/21/21 15:25 36.4 18 132/68 (89) 93 Room Air 03/21/21 15:20 20 136/65 (88) 93 Room Air 03/21/21 15:14 Room Air 03/21/21 15:10 18 134/57 (82) 93 Room Air 03/21/21 15:08 Room Air 03/21/21 15:04 OxyMask 3 03/21/21 15:02 OxyMask 6 03/21/21 15:00 18 122/86 (98) 95 OxyMask 3 03/21/21 14:52 OxyMask 6 03/21/21 14:50 18 120/89 (99) 98 OxyMask 6 03/21/21 14:50 18 120/89 (99) 98 OxyMask 6 03/21/21 14:45 OxyMask 6 03/21/21 14:40 18 116/72 (87) 96 OxyMask 6 03/21/21 14:34 36.8 16 108/56 (73) 97 OxyMask 6 03/21/21 14:34 OxyMask 6 I & O 03/22/21 07:00 Intake Total 4000 ml Output Total 1500 ml Balance 2500 ml Laboratory Tests Test 03/22/21 05:13 Range/Units White Blood Count 16.7 H 4.3-11.0 10^3/uL Red Blood Count 2.45 L 4.30-5.52 10^6/uL Hemoglobin 7.2 #L 13.3-17.7 g/dL Hematocrit 22 L 40-54 % Mean Corpuscular Volume 91 80-99 fL Mean Corpuscular Hemoglobin 29 25-34 pg Mean Corpuscular Hemoglobin Concent 32 32-36 g/dL Red Cell Distribution Width 14.9 H 10.0-14.5 % Platelet Count 295 130-400 10^3/uL Mean Platelet Volume 11.2 9.0-12.2 fL Immature Granulocyte % (Auto) 5 % Neutrophils (%) (Auto) 73 42-75 % Lymphocytes (%) (Auto) 16 12-44 % Monocytes (%) (Auto) 6 0-12 % Eosinophils (%) (Auto) 0 0-10 % Basophils (%) (Auto) 0 0-10 % Neutrophils # (Auto) 12.2 H 1.8-7.8 10^3/uL Lymphocytes # (Auto) 2.7 1.0-4.0 10^3/uL Monocytes # (Auto) 1.0 0.0-1.0 10^3/uL Eosinophils # (Auto) 0.0 0.0-0.3 10^3/uL Basophils # (Auto) 0.0 0.0-0.1 10^3/uL Immature Granulocyte # (Auto) 0.8 H 0.0-0.1 10^3/uL Sodium Level 135 135-145 MMOL/L Potassium Level 4.5 3.6-5.0 MMOL/L Chloride Level 100 98-107 MMOL/L Carbon Dioxide Level 24 21-32 MMOL/L Anion Gap 11 5-14 MMOL/L Blood Urea Nitrogen 20 H 7-18 MG/DL Creatinine 0.76 0.60-1.30 MG/DL Estimat Glomerular Filtration Rate > 60 BUN/Creatinine Ratio 26 Glucose Level 135 H 70-105 MG/DL Calcium Level 7.8 L 8.5-10.1 MG/DL LLE--dressing intact. brisk cap refill distally s/p L femur IM candelario WB for transfer with support Final Diagnosis patient to be discharged to follow up in ten days d/w patient KESHA ARMIJO MD Mar 28, 2021 07:04
[2021-03-28 07:54] VITALS: BP 136/70
[2021-03-28] MEDS: SENNA W/DOCUSATE (SENOKOT S) TABLET PO SCH (08:02)
[2021-03-28] MEDS: LACTULOSE SYRUP 10GM/15ML (ENULOSE) 30ML UDC PO SCH (08:02)
[2021-03-28] MEDS: BACLOFEN 10 MG (LIORESAL) TAB PO SCH ×2 (08:02→13:00)
[2021-03-28] MEDS: PANTOPRAZOLE 40 MG (PROTONIX) TAB PO SCH (08:02)
[2021-03-28] MEDS: BISACODYL 10 MG SUPP (DULCOLAX) PR SCH (08:02)
[2021-03-28] MEDS: polyethylene glycoL POWDER 17 GM (MIRALAX) PACK PO SCH (08:03)
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
--- NOTE | 2021-03-28 11:55 | Occupational Ther Daily Note ---
OT Current Status-Daily Note Subjective Pt alert, lying in bed. Pt states that he is going home today. CAIN and pt discussed any needs that he will have at home, pt stated no needs. ADL-Treatment Pt stated that he was incontinent of urine and requested to be changed. With verbal cues pt able to assist with rolling and holding onto bed rail to stay in position. Assist to cleanse buttocks and back, pt able to cleanse front audrey area after setup. Pt positioned for comfort. After therapy, pt sitting up in bed with call light/phone in reach. All needs met room. Therapy Code Descriptions/Definitions Functional [place] Measure: 0=Not Assessed/NA 4=Minimal Assistance 1=Total Assistance 5=Supervision or Setup 2=Maximal Assistance 6=Modified [place] 3=Moderate Assistance 7=Complete IndependenceSCALE: Activities may be completed with or without assistive devices. 0-Puyapexezf-kcsqihm completes the activity by him/herself with no assistance from a helper. 5-Set-up or Clean-up Assistance-helper sets up or cleans up; patient completes activity. [place] assists only prior to or following the activity. 4-Supervision or Touching Assistance-helper provides verbal cues and/or touching/steadying and/or contact guard assistance as patient completes activity. Assistance may be provided throughout the activity or intermittently. 3-Partial/Moderate Assistance-helper does LESS THAN HALF the effort. [place] lifts, holds or supports trunk or limbs, but provides less than half the effort. 2-Substantial/Maximal Assistance-helper does MORE THAN HALF the effort. [place] lifts or holds trunk or limbs and provides more than half the effort. 2-Jfwtfvtyn-mhvkil does ALL the effort. Patient does none of the effort to complete the activity. Or, the assistance of 2 or more helpers is required for the patient to complete the activity. If activity was not attempted, code reason: 7-Patient Refused. 9-Not Applicable-not attempted and the patient did not perform the activity before the current illness, exacerbation or injury. 10-Not Attempted due to Environmental Limitations-(lack of equipment, weather restraints, etc.). 88-Not Attempted due to Medical Conditions or Safety Concerns. OT Half-Way Goals Site Safety Coordinator Goals Time Frame: Mar 28, 2021 Eating (QC): 6 Oral Hygiene (QC): 6 Toileting Hygiene (QC): 3 Shower/Bathe Self (QC): 3 Upper Body Dressing (QC): 3 Lower Body Dressing (QC): 3 On/Off Footwear (QC): 2 Additional Goals: 1-Demonstrate ADL Tasks, 2-Verbalize Understanding, 3- ImproveStrength/[place] 1=Demonstrate adherence to instructed precautions during ADL tasks. 2=Patient will verbalize/demonstrate understanding of assistive devices/modifications for ADL. 3=Patient will improve strength/tolerance for activity to enable patient to perform ADL's. OT Education/Plan Problem List/Assessment Assessment: Decreased UE Strength, Impaired Bed Mobility, Impaired Self-Care Skills, Restricted Funct UE ROM Pt would benefit from skilled OT services in order to increase safety and independence with ADLs in order to maximize LOF for safe return home and decrease caregiver burden. Discharge Recommendations Plan/Recommendations: Continue POC Treatment Plan/Plan of Care Patient would benefit from OT for education, treatment and training to promote independence in ADL's, mobility, safety and/or upper extremity function for ADL' s. Plan of Care: ADL Retraining, Functional Mobility, UE Funct Exercise/Act Treatment Duration: Mar 28, 2021 Frequency: 5 times per week Estimated Hrs Per Day: .25 hour per day Rehab Potential: Fair Time/GCodes Start Time: 11:21 Stop Time: 11:31 Total Time Billed (hr/min): 10 Billed Treatment Time 1 visit-ADL 1 (10 min) JOSIAH ESCALANTE Mar 28, 2021 11:55
[2021-03-28] MEDS: ENOXAPARIN 40 MG/0.4 ML (LOVENOX) SYR SC SCH (13:00)
[2021-03-28] MEDS ORDERED: ACHD5005 PO (16:32)
== END 2021-03-28 16:07 | disposition home health service (06) | DRG 956 ==
LOC: EDUNIT# 13:41 → ER 13:47 → ICU 15:43 → 4TH 03-17 10:40
PROVIDERS: ADMIT Surgery; ATTEND Family Medicine
PROC: 0QS936Z Reposition Left Femoral Shaft with Intramedullary Internal Fixation Device, Percutaneous Approach (ICD-10-PCS; principal; 2021-03-21 11:18)
DX: S27.2XXA Traumatic hemopneumothorax, initial encounter (principal); S72.322A Displaced transverse fracture of shaft of left femur, initial encounter for closed fracture; J18.9 Pneumonia, unspecified organism; S22.43XA Multiple fractures of ribs, bilateral, initial encounter for closed fracture; F84.0 Autistic disorder; I69.354 Hemiplegia and hemiparesis following cerebral infarction affecting left non-dominant side; N39.0 Urinary tract infection, site not specified; Z20.822 Contact with and (suspected) exposure to COVID-19; M54.5 Low back pain; D64.9 Anemia, unspecified; G89.29 Other chronic pain; I10 Essential (primary) hypertension; F89 Unspecified disorder of psychological development; F31.9 Bipolar disorder, unspecified; S01.81XA Laceration without foreign body of other part of head, initial encounter; S41.112A Laceration without foreign body of left upper arm, initial encounter; V85.6XXA Passenger of special construction vehicle injured in nontraffic accident, initial encounter; Y92.89 Other specified places as the place of occurrence of the external cause; Z79.82 Long term (current) use of aspirin; Z79.899 Other long term (current) drug therapy; Z86.16 Personal history of COVID-19
CPT/HCPCS: 12013; 12032; 36415; 70450; 71045; 71260; 72125; 72128; 72131; 72170; 73060; 73552; 73590; 74177; 76000; 80048; 80053; 80076; 80306; 80320; 81000; 83605; 83735; 84100; 85007; 85025; 85027; 85379; 85384; 85610; 85730; 86850; 86900; 86901; 86920; 87077; 87081; 87088; 87186; 87636; 93041; 94640; 94664; 94760; 99291